=== PATIENT | female | born 1975 | race Caucasian/White ===

== ENCOUNTER 2018-06-15 01:46 | Outpatient (CLI) | payer BC, SELFPAY ==
[2018-06-15 08:45] LABS: Cholesterol 136 mg/dL (50-200); Glucose 85 mg/dL (70-100); HDL Cholesterol 58 mg/dL (40-60); LDL CHOLESTEROL 68 mg/dL (<100); Triglyceride 42 mg/dL (30-150)
== END 2018-06-15 02:06 ==
PROVIDERS: PCP General Practice; Visit Provider General Practice
DX: Z00.00 Encounter for general adult medical examination without abnormal findings (principal); Z13.220 Encounter for screening for lipoid disorders; Z13.1 Encounter for screening for diabetes mellitus
CPT/HCPCS: 36415; 80061; 82947; 83721

== ENCOUNTER 2018-11-14 01:39 | Outpatient (CLI) | payer BC, SELFPAY ==
--- NOTE | 2018-11-14 08:25 | DI.RAD_ITS ---
SYMPTOM/DIAGNOSIS: PAIN RIGHT RIBS AND PA AND LATERAL CHEST: A pectus excavatum deformity is noted. The heart size is normal. The lungs are clear. No spine or rib abnormalities are identified. IMPRESSION: Negative chest and right ribs.
== END 2018-11-14 01:59 ==
PROVIDERS: PCP General Practice; Visit Provider General Practice
DX: R07.9 Chest pain, unspecified (principal); R07.81 Pleurodynia
CPT/HCPCS: 71046; 71100

== ENCOUNTER 2019-01-24 10:14 | Outpatient (CLI) | payer BC, SELFPAY ==
[2019-01-24 10:37] LABS: HCT 38.9 % (36.0-46.0); HGB 13.5 g/dL (12.0-15.5); Mean Corp. HGB Concentration 34.7 g/dL (32.0-36.0); Mean Corpuscular Hemoglobin 32.1 pg (27.0-33.0); Mean Corpuscular Volume 92.6 fL (80-95); Mean Platelet Volume 9.9 fL (8.0-11.0); Platelet Count 249 x1000/uL (130-400); RBC Distribution Width 12.2 % (11.7-14.6)
[2019-01-24 12:15] LABS: TSH (W/Ref FT4) 2.37 uIU/mL (0.36-3.74)
== END 2019-01-24 10:34 ==
PROVIDERS: PCP General Practice; Visit Provider Obstetrics & Gynecology Gynecology
DX: Z00.00 Encounter for general adult medical examination without abnormal findings (principal); Z13.0 Encounter for screening for diseases of the blood and blood-forming organs and certain disorders involving the immune mechanism; Z13.29 Encounter for screening for other suspected endocrine disorder
CPT/HCPCS: 36415; 85027; 84443

== ENCOUNTER 2019-02-07 15:12 | Outpatient (REF) | payer BC, SELFPAY | END 2019-02-07 15:32 | LOC: LBN 15:12 | PROVIDERS: PCP General Practice; Visit Provider Nurse Practitioner Family | DX: R10.2 Pelvic and perineal pain (principal) | CPT/HCPCS: 87086 ==

== ENCOUNTER 2019-05-08 11:13 | Outpatient (REF) | payer BC, SELFPAY ==
[2019-05-08 19:11] LABS: HCT 40.4 % (36.0-46.0); Mean Corp. HGB Concentration 34.7 g/dL (32.0-36.0); Mean Corpuscular Hemoglobin 31.7 pg (27.0-33.0); Mean Corpuscular Volume 91.6 fL (80-95); Mean Platelet Volume 11.4 fL (8.0-11.0); Platelet Count 293 x1000/uL (130-400); RBC 4.41 m/cumm (4.00-5.20); RBC Distribution Width 12.1 % (11.7-14.6); White Blood Cell Count 6.51 k/cumm (4.4-10.8)
[2019-05-08 19:27] LABS: ALT 21 U/L (14-59); AST 15 U/L (15-37); Albumin 4.4 g/dL (3.4-5.0); Alkaline Phosphatase 44 U/L (46-116); Anion Gap 11.5 mmol/L (3-11); BUN 10 mg/dL (7-18); Bilirubin, Total 0.2 mg/dL (0.2-1.0); CO2 25.5 mmol/L (21.0-32.0); CREATININE 0.73 mg/dL (0.55-1.02); Calcium 9.2 mg/dL (8.5-10.1); Chloride 105 mmol/L (98-107); Glucose 82 mg/dL (74-106); Potassium 4.2 mmol/L (3.5-5.1); Sodium 142 mmol/L (136-145); Total Protein 7.4 g/dL (6.4-8.2)
== END 2019-05-08 11:33 ==
LOC: NCHCN 11:13
PROVIDERS: PCP General Practice; Visit Provider Nurse Practitioner Family
DX: K90.0 Celiac disease (principal); F32.9 Major depressive disorder, single episode, unspecified; F41.9 Anxiety disorder, unspecified; G47.00 Insomnia, unspecified
CPT/HCPCS: 80053; 85027

== ENCOUNTER 2020-02-01 01:20 | Outpatient (CLI) | payer BC, SELFPAY ==
--- NOTE | 2020-02-01 | DI.MAMMO_ITS ---
EXAM: MG MAMMO SCREENING CLINICAL HISTORY: SCREENING, Z12.39 TECHNIQUE: Bilateral full field digital CC and MLO mammographic images were obtained with 3D tomosyn thesis and utilizing computer aided detection (CAD). COMPARISON: Available for comparison. FINDINGS: Masses/Architectural Distortion: None seen. Microcalcifications: No suspicious pleomorphic-type are seen. Skin Thickening/Nipple Retraction: None. IMPRESSION: 1. No significant interval change with no specific features of malignancy noted. 2. Unless there is more urgent need, screening mammography is recommended, as per [employer] guidelines. BI-RADS Category 1 - Negative Breast Density - Category D - Extremely dense The mammogram demonstrates the patient's breast tissue is dense. Dense breast tissue is very common a nd is not abnormal but dense breast tissue can make it harder to find cancer on a mammogram. Also, de nse breast tissue may increase their breast cancer risk. This information about the result of the [facility] mogram report was provided to the patient to raise their awareness. Use this report when you speak wi th the patient about their risks for breast cancer, which includes their family history. At that time , you may recommend for more screening tests (Ultrasound or MRI) as they might be useful based on the ir risk. A negative radiographic report should not delay biopsy if a dominant or clinically suspicious mass is present. Up to ten percent of cancers are not identified on mammography. A negative report may reinforce clinical impression. Adenosis and dense breasts may obscure an underlying neoplasm. False positive reports average 6 to 10%. Patient will receive a letter notifying them of these results.
== END 2020-02-01 01:40 ==
PROVIDERS: PCP Nurse Practitioner Family; Visit Provider Nurse Practitioner Family
DX: Z12.31 Encounter for screening mammogram for malignant neoplasm of breast (principal); R92.2 Inconclusive mammogram
CPT/HCPCS: 77063; 77067

== ENCOUNTER 2020-03-22 11:23 | Outpatient (CLI) | payer BC, SELFPAY ==
[2020-03-22 12:09] LABS: Abs Immature Grans 0.01 10^3/uL (0.0-0.06); Absolute Basophil Count 0.08 10^3/uL (0.0-0.2); Absolute Eosinophil Count 0.15 10^3/uL (0.0-0.7); Absolute Lymphocyte Count 0.97 10^3/uL (1.2-3.4); Absolute Neutrophil Count 4.79 10^3/uL (1.2-6.7); Basophils % 1.3; Eosinophils % 2.3; HCT 38.5 % (36.0-46.0); HGB 12.9 g/dL (11.2-15.7); Immature Grans % 0.2; Lymphocytes % 15.2; MCH 31.5 pg (27.0-33.0); MCHC 33.5 % (32.0-36.0); MCV 94.1 fL (80-95); MPV 10.7 fL (8.0-11.0); Monocytes % 6.3; Neutrophils % 74.7; Nucleated RBC 0 %; Platelet Count 196 10^3/uL (130-400); RBC 4.09 10^6/uL (3.93-5.22); RDW 11.6 % (11.7-14.6); RDW-SD 39.7 fL
[2020-03-22 12:11] LABS: Bilirubin Negative (Negative); Blood Trace-intact (Negative); Clarity Clear (Clear); Glucose Negative (Negative); Ketones Negative (Negative); Leukocyte Esterase Negative (Negative); Nitrite Negative (Negative); Urobilinogen 0.2 EU/dL (Up TO 0.2)
[2020-03-22 12:23] LABS: Bacteria Few HPF (Negative); C & S Indicated? No/Sq. Contamination; Casts Negative LPF (Negative); Crystals Negative HPF (Negative); Epithelial Cells Moderate HPF (Negative); Mucus Negative (Negative); RBC 0-2 HPF (0-2); WBC 0-2 HPF (0-5)
[2020-03-22 12:30] LABS: Anion Gap 5.4 mmol/L (3-11); BUN 9 mg/dL (7-18); CO2 28.6 mmol/L (21.0-32.0); Chloride 104 mmol/L (98-107); Glucose 100 mg/dL (74-106); Potassium 3.7 mmol/L (3.5-5.1); Sodium 138 mmol/L (136-145)
[2020-03-22 12:39] LABS: C-Reactive Protein < 0.05 mg/dL (0.0-0.3)
[2020-03-22 12:51] LABS: ESR 8 mm/hr (0-20)
[2020-03-25 12:48] LABS: Albumin 63.8 % (55.8-66.1); Total Protein 7.5 g/dL (6.3-8.2)
[2020-03-26 14:41] LABS: Dilute Russell Viper Venom 27.5 secs (27.2-36.9); LA Cascade Summary (See Note); Silica Clotting Time 40.7 secs (30.2-48.4)
[2020-03-26 17:04] LABS: ANA Interpretation Positive (Negative)
== END 2020-03-22 11:43 ==
PROVIDERS: PCP Nurse Practitioner Family; Visit Provider Nurse Practitioner Family
DX: R21 Rash and other nonspecific skin eruption (principal); M25.59 Pain in other specified joint
CPT/HCPCS: 36415; 80048; 85652; 87116; 81003; 81015; 84165; 85025; 86038; 86140

== ENCOUNTER 2020-03-25 02:06 | Outpatient (CLI) | payer BC, SELFPAY | END 2020-03-25 02:26 | PROVIDERS: PCP Nurse Practitioner Family; Visit Provider Nurse Practitioner Family | DX: R69 Illness, unspecified (principal) ==

== ENCOUNTER 2020-07-05 21:41 | Outpatient (CLI) | payer BC, SELFPAY ==
--- NOTE | 2020-07-05 16:12 | DI.RAD_ITS ---
EXAM: XR KNEE LT 2V AP,LAT CLINICAL HISTORY: KNEE PAIN WITH INTERMITTENT SWELLING,EVALUATE FOR OA VS CHONDROALCINOSIS. TECHNIQUE: 2D digital imaging was performed. COMPARISON: No previous for comparison. FINDINGS: BONES: No acute fracture is present. No bony destructive lesion is seen. JOINTS: The knee is normally aligned. Small joint effusion. No evidence of chondrocalcinosis. SOFT TISSUE: Normal. IMPRESSION: Small joint effusion. Otherwise unremarkable examination of the left knee. DATA REPOSITORY: RADIATION DOSE DELIVERED:
--- NOTE | 2020-07-05 16:13 | DI.RAD_ITS ---
EXAM: XR KNEE RT 2V AP,LAT CLINICAL HISTORY: KNEE PAIN,INTERMITTENT SWELLING,EVALUATE FOR OA VS CHONDROCALCINOSIS. TECHNIQUE: 2D digital imaging was performed. COMPARISON: CR XR KNEE LT 2V AP,LAT from 07/05/2020 FINDINGS: BONES: No acute fracture is present. No bony destructive lesion is seen. JOINTS: The knee is normally aligned. Small joint effusion. No evidence of chondrocalcinosis. SOFT TISSUE: Normal. IMPRESSION: Small joint effusion. Otherwise unremarkable examination. DATA REPOSITORY: RADIATION DOSE DELIVERED:
== END 2020-07-05 21:42 ==
LOC: DI 07-08 21:44
PROVIDERS: PCP Nurse Practitioner Family; Visit Provider Internal Medicine
DX: M25.461 Effusion, right knee (principal); M25.462 Effusion, left knee
CPT/HCPCS: 73560

== ENCOUNTER 2020-11-14 02:56 | Outpatient (CLI) | payer BC, SELFPAY ==
[2020-11-14 17:54] LABS: ALT 25 U/L (14-59); AST 19 U/L (15-37); Albumin 4.2 g/dL (3.4-5.0); Alkaline Phosphatase 37 U/L (46-116); Bilirubin, Direct 0.1 mg/dL (0.0-0.2); Bilirubin, Total 0.2 mg/dL (0.2-1.0); Total Protein 7.2 g/dL (6.4-8.2)
== END 2020-11-14 02:57 | disposition home or self-care (01) ==
PROVIDERS: PCP Nurse Practitioner Family; Visit Provider Internal Medicine Gastroenterology
DX: R74.8 Abnormal levels of other serum enzymes (principal)
CPT/HCPCS: 36415; 80076

== ENCOUNTER 2020-12-05 02:49 | Outpatient (CLI) | payer BC, SELFPAY ==
[2020-12-05 17:39] LABS: TSH 1.44 uIU/mL (0.36-3.74)
== END 2020-12-05 02:50 | disposition home or self-care (01) ==
PROVIDERS: PCP Nurse Practitioner Family; Visit Provider Internal Medicine
DX: E03.9 Hypothyroidism, unspecified (principal)
CPT/HCPCS: 36415; 84443

== ENCOUNTER 2021-10-01 01:40 | Outpatient (CLI) | payer BC, SELFPAY ==
[2021-10-03 11:39] LABS: Centromere Ab, IgG 2.5 U (<1.0 (Neg))
== END 2021-10-01 01:41 | disposition home or self-care (01) ==
LOC: LBO 01:40
PROVIDERS: PCP Nurse Practitioner Family; Visit Provider Internal Medicine
DX: I73.00 Raynaud's syndrome without gangrene (principal); R76.8 Other specified abnormal immunological findings in serum
CPT/HCPCS: 36415; 83520

== ENCOUNTER 2021-11-03 02:40 | Outpatient (CLI) | payer BC, SELFPAY ==
--- NOTE | 2021-11-03 11:15 | DI.CT_ITS ---
Exam(s) CT CHEST WO EXAM: CT CHEST WO CLINICAL HISTORY: STACIA, M34.1 TECHNIQUE: Imaging Protocol: Axial computed tomography images with coronal and sagittal reformatted images were created and reviewed CONTRAST MATERIAL: Intravenous: Omnipaque 350 Contrast volume:structured data in ml. COMPARISON: CR XR ribs RT w PA lat chest from 11/14/2018 FINDINGS: Tracheobronchial tree: No bronchiectasis or mucous plugging. Mediastinum and [place]: No dominant adenopathy or fluid collection. Pulmonary parenchyma: Minimal apical scarring. No consolidation or dominant measurable mass. No sig nificant emphysematous changes or abnormal interstitial changes. No pulmonary nodules. Pleura: No effusion or pneumothorax. Heart: The heart is not dilated. No coronary artery calcifications are seen. Aorta: Thoracic aorta non-dilated. Upper abdomen: Unremarkable. Lymph nodes: Within normal limits. Bones: Pectus excavatum. Otherwise normal. Soft tissues: Unremarkable. IMPRESSION: Mild apical scarring. RADIATION DOSE DELIVERED: 343.42mGy.cm Total DLP DATA REPOSITORY: All CT scans at this facility are submitted to the National Radiology Data Registry (NRDR) Dose Index Registry (DIR) with the [employer] (A[employer]). RADIATION OPTIMIZATION: All CT scans at this facility use at least one of these dose optimization te chniques: automated exposure control; mA and/or kV adjustment per patient size (includes targeted exa ms where dose is matched to clinical indication); or iterative reconstruction.
--- NOTE | 2021-11-03 11:34 | DI.RAD_ITS ---
Exam(s) XR SHOULDER RT COMPLETE 2+V EXAM: XR SHOULDER RT COMPLETE 2+V CLINICAL HISTORY: SHOULDER PAIN, RT ROTATOR CUFF INJURY, S46.001D. TECHNIQUE: 2D digital imaging was performed. Five views. COMPARISON: No exams were available for comparison FINDINGS: BONES: No acute fracture is present. No bony destructive lesion is seen. JOINTS: No dislocation present. No significant degenerative changes. SOFT TISSUE: Normal. IMPRESSION: Unremarkable radiographs of the right shoulder. DATA REPOSITORY: RADIATION DOSE DELIVERED:
== END 2021-11-03 03:00 ==
LOC: DI 02:41
PROVIDERS: PCP Nurse Practitioner Family; Visit Provider Internal Medicine
DX: S46.001D Unspecified injury of muscle(s) and tendon(s) of the rotator cuff of right shoulder, subsequent encounter (principal); X58.XXXD Exposure to other specified factors, subsequent encounter; M34.1 CR(E)ST syndrome; J98.4 Other disorders of lung
CPT/HCPCS: 71250; 73030

== ENCOUNTER 2021-11-03 04:14 | Outpatient (CLI) | payer BC, SELFPAY ==
[2021-11-03] MEDS: Inhaler, Assist Device 1 EACH MC (11:07)
[2021-11-03] MEDS: Albuterol HFA 18 GM 200 PUFF INH IH (11:07)
--- NOTE | 2021-11-04 09:25 | W.PFT ---
Date of service: 11/03/21 Time of Service: 10:03 Pulmonary Function Test Result Requesting Provider Geraldo Gracia Indications: Crest syndrome Interpretation Spirometry: There is no airflow limitation. There is no significant bronchodilator response. Lung Volumes: Normal lung volumes Diffusion Capacity: Normal diffusion Airway Pressure: Normal airways resistance. Impression Normal pulmonary function testing Clinical Correlation therefore is recommended.
== END 2021-11-03 04:15 | disposition home or self-care (01) ==
LOC: RT 04:14
PROVIDERS: PCP Nurse Practitioner Family; Visit Provider Nurse Practitioner Family
DX: M34.1 CR(E)ST syndrome (principal); R05.8 Other specified cough
CPT/HCPCS: 94060; 94726; 94729

== ENCOUNTER → 2021-11-05 02:18 | Outpatient (CLI) | payer BC, SELFPAY ==
--- NOTE | 2021-11-05 | DI.US_ITS ---
APPROVED REPORT EXAM: Comprehensive 2D, Doppler, and color-flow Echocardiogram Patient Location: Out-Patient Intervention Manager: Diana Doyle RDCS (AE) Indications: Crest, Calcinosis, Raynaud phenomenon, Telangiectasis Other Information Study Quality: Fair. Technically limited study due to body habitus. Conclusion Technically difficult and suboptimal study The left ventricle appears normal in size and wall thickness. Ejection fraction appears normal. The re are no wall motion abnormalities appreciated The right ventricle appears normal in size and systolic function The atria were not well visualized Aortic valve was not well visualized Normal mitral valve with trace regurgitation Normal tricuspid valve with trace regurgitation Normal estimated right ventricular systolic pressure 26 mmHg Wall motion Left Ventricle The left ventricle is normal size. The left ventricular systolic function is normal. The left ventric ular ejection fraction is within the normal range. There is normal left ventricular wall thickness. T here is normal LV segmental wall motion. There is no ventricular septal defect visualized. LVEF is 57 %. Right Ventricle The right ventricle is normal size.. The right ventricular systolic function is normal. The RVSP is 2 6.2mmHg. Atria Left atrium is not well visualized. Right atrium is not well visualized. The interatrial septum is in tact with no evidence for an atrial septal defect. Aortic Valve The aortic valve is normal in structure. Number of aortic valve leaflets could not be assessed. There is no aortic valvular stenosis. Mitral Valve The mitral valve is normal in structure. No evidence of mitral valve stenosis. Trace mitral regurgita tion. Tricuspid Valve The tricuspid valve is normal in structure. There is no tricuspid valve stenosis. Trace tricuspid reg urgitation. Pulmonic Valve Pulmonic valve is not well visualized. Great Vessels The aortic root is normal in size. Ascending aorta is not well visualized. Aortic arch is not well vi sualized. The IVC collapses <50% with inspiration. Pericardium There is no pericardial effusion. 2D Dimensions IVSD d PLAX 0.64 cm F: 0.6-1.0 LV Vol A2C d MOD 48.1 mL LVPW d PLAX 0.68 cm F: 0.6 - 1.0 LV Vol A4C d MOD 55.6 mL LVID d PLAX 3.39 cm F: 3.8 - 5.2 LV EF A4C MOD 58.8 % LVDs 2.40 cm F: 2.2 - 3.5 LV EF A2C MOD 59.0 % Ao Root d 2.13 cm F: 2.7 - 3.3 LV EF Biplane MOD 58.5 % LV EF Teichholz 55.2 % SV 30.56 mL LVEF (Olivas's) 58.53 % F: 54 - 74 SV Index 21.11 mL/m2 LV Volume 44.13 mL F: 46 - 106 LV Volume Index 30.64 mL/m2 F: 29 - 61 LV Vol Biplane MOD 52.2 mL FS 27.85 % LV Diastology E/A Ratio 1.0 MV E Vmax 1.04 (0.4-1.3 m/s) MV A Vmax 1.00 (0.4-1.3 m/s) MV E/A Ratio 1.01 Aortic Valve LVOT Area 2.64 cm2 AoV Area Vmax 1.94 cm2 LVOT Vmax 0.98 m/s AoV Area/ BSA (Vmax) 1.34 cm2/m2 LVOT Mean Marvel. 0.78 m/s ROBERT Mean Marvel. 1.91 cm2 LVOT Peak Grad 3.9 mmHg ROBERT Mean Marvel. Index 1.32 cm2/m2 LVOT Mean Grad 2.5 mmHg LVOT VTI 0.196 m LVOT Diam s 1.80 cm AoV Vmax 1.34 m/s Velocity Ratio 0.73 AoV Mean Marvel. 1.07 m/s AoV Peak Grad 7.2 mmHg LVOT SV 51.81 mL AoV Mean Grad 4.8 mmHg AoV VTI 0.298 m AoV Area VTI 1.74 cm2 AoV Area/ BSA (VTI) 1.20 cm/m2 Mitral Valve MV DT 158 (160-240 msec) MV PHT 46 msec MV Area PHT 4.79 cm2 MV VTI 0.252 m MV Area VTI 2.06 (4.0-6.0 cm2) Pulmonary Valve PV Vmax 1.14 (0.5-1.5 m/s) RVOT Peak Gr. 1.22 mmHg PV Peak Grad 5.2 mmHg RVOT Mean Gr. 0.70 mmHg PV Mean Grad 3.4 mmHg RVOT VTI 0.087 m PV VTI 0.264 m RVOT Vmax 0.55 m/s Tricuspid Valve TR Peak Grad 18.2 mmHg TR Vmax 2.14 m/s RA Pressure 8.00 mmHg RVSP (TR) 26.2 mmHg
== END ==
PROVIDERS: PCP Nurse Practitioner Family; Visit Provider Nurse Practitioner Family
DX: M34.1 CR(E)ST syndrome (principal); I73.00 Raynaud's syndrome without gangrene; I78.0 Hereditary hemorrhagic telangiectasia
CPT/HCPCS: 93306

== ENCOUNTER 2022-07-14 19:18 | Outpatient (REF) | payer BC, SELFPAY ==
[2022-07-14 16:55] LABS: Abs Immature Grans 0.02 10^3/uL (0.0-0.06); Absolute Basophil Count 0.06 10^3/uL (0.0-0.2); Absolute Lymphocyte Count 0.73 10^3/uL (1.2-3.4); Absolute Monocyte Count 0.37 10^3/uL (0.1-0.8); Absolute Neutrophil Count 3.17 10^3/uL (1.2-6.7); Basophils % 1.3; Eosinophils % 2.2; HCT 39.6 % (36.0-46.0); HGB 13.2 g/dL (11.2-15.7); Immature Grans % 0.4; Lymphocytes % 16.4; MCH 31.7 pg (27.0-33.0); MCHC 33.3 % (32.0-36.0); MCV 95 fL (80-95); MPV 11.6 fL (8.0-11.0); Monocytes % 8.3; Neutrophils % 71.4; Platelet Count 221 10^3/uL (130-400); RBC 4.17 10^6/uL (3.93-5.22); RDW 12.5 % (11.7-14.6); RDW-SD 42.9 fL; WBC 4.45 10^3/uL (4.4-10.8)
[2022-07-14 17:10] LABS: ALT 20 U/L (14-59); AST 28 U/L (15-37); Albumin 4.5 g/dL (3.4-5.0); Alkaline Phosphatase 48 U/L (46-116); Anion Gap 7.3 mmol/L (3-11); BUN 6 mg/dL (7-18); Bilirubin, Total 0.2 mg/dL (0.2-1.0); CO2 29.7 mmol/L (21.0-32.0); CREATININE 0.7 mg/dL (0.55-1.02); Calcium 9.2 mg/dL (8.5-10.1); Calculated LDL 97 mg/dL (<100); Chloride 101 mmol/L (98-107); Cholesterol 184 mg/dL (<200); Estimated GFR 106.62 (mL/min/1.73m2); Glucose 109 mg/dL (74-106); HDL Cholesterol 71 mg/dL (40-60); Potassium 3.7 mmol/L (3.5-5.1); Sodium 138 mmol/L (136-145); Total Protein 7.8 g/dL (6.4-8.2); Triglyceride 81 mg/dL (<150)
--- OUTSIDE RECORDS SUMMARY | 2022-07-14 19:30 | XMS_ITS ---
Author Name Paulina Porter Address [address], [place] [id number] Organization [facility] Address [address], [place] [id number] Care Team Providers Care Nursing Unit Clerk Name Role Phone Paulina Porter Unavailable [phone] PROBLEMS Type Condition ICD9-CM Code XIV04-ZY Code Onset Dates Condition Status SNOMED Code Problem Sensorineural hearing loss (SNHL), bilateral H90.3 Active 192120168 Problem Chronic rhinitis J31.0 Active [id number] ALLERGIES Substance Reaction Event Type Date Status codeine vomiting Drug Allergy Dec, Active Doxycycline rash, numbness on hands Drug Allergy Dec, 020 Active gluten Unknown Non Drug Allergy Dec, Active corn Unknown Non Drug Allergy Dec, Active ENCOUNTERS Encounter Location Date Diagnosis [facility] [address] [place], [place] [id number] Dec, Encounter for other administrative examinations Z02.89 [facility] [address] [place], [place] [id number] Dec, Sensorineural hearing loss (SNHL) of both ears H90.3 [facility] [address] [place], [place] [id number] Dec, Sensorineural hearing loss (SNHL), bilateral H90.3 N [facility] [address] [place], [place] [id number] May, Sensorineural hearing loss (SNHL), bilateral H90.3 N [facility] [address] [place], [place] [id number] May, Chronic rhinitis J31.0 and Sensorineural hearing loss (SNHL), bilateral H90.3 N E [facility] [address] [place], [place] [id number] May, Sensorineural hearing loss, bilateral H90.3 N E [facility] [address] [place], [place] [id number] May, Sensorineural hearing loss (SNHL), bilateral H90.3 N E [facility] [address] [place], [place] [id number] Apr, Sensorineural hearing loss, bilateral H90.3 N [facility] [address] [place], [place] [id number] Mar, Sensorineural hearing loss (SNHL), bilateral H90.3 N E [facility] [address] [place], [place] [id number] Feb, Sensorineural hearing loss, bilateral H90.3 N [facility] [address] [place], [place] [id number] Feb, Sensorineural hearing loss (SNHL), bilateral H90.3 N [facility] [address] [place], [place] [phone] Feb, IMMUNIZATIONS No Known Immunizations SOCIAL HISTORY Never Assessed REASON FOR REFERRAL FUNCTIONAL STATUS PLAN OF CARE VITAL SIGNS Height 62 in 2020-01-25 Height 62 in 2018-06-16 Height 62 in 2017-06-03 Height 5 ft 2 in in 2016-03-19 Weight 94 lbs 2020-01-25 Weight declined lbs 2018-06-16 Weight 95 lbs 2017-06-03 Weight 107 lbs 2016-03-19 Temperature 97.9 degrees Fahrenheit Heart Rate 88 /min 2020-01-25 Heart Rate 90 /min 2018-06-16 Heart Rate 88 /min 2017-06-03 Heart Rate 96 /min 2016-03-19 Respiratory Rate 14 /min 2018-06-16 BMI 17.19 kg/m2 2020-01-25 BMI 17.37 kg/m2 2017-06-03 BMI 19.57 kg/m2 2016-03-19 Blood pressure systolic 98 mm Hg Blood pressure diastolic 60 mm Hg 2019-12 MEDICATIONS Medication Instructions Dosage Frequency Start Date End Date Duration Status Zolpidem Tartrate 5 MG Orally Once a day 0.5 tablet at bedtime 24h Active Sertraline HCl 25 MG take 1 tablet by mouth once daily 90 Active Amitriptyline HCl 50 MG Orally Once a day 1 tablet 24h Active Ibuprofen 200 MG Orally every 6 hrs 1 tablet as needed 6h Active Fluticasone Propionate 50 MCG/ACT Nasally Once a day 2 spray in each nostril 24h May, 30 day(s) Active PROCEDURES Procedure Date Ordered Result Body Site OCD Urine Drug Screen (collection only) Jan 05, 2022 COMPREHENSIVE AUDIOMET THRESH AND SPEECH Jan 25, 2020 RESULTS Name Result Date Reference Range OCD URINE COLLECTION 2022-01-05 REASON FOR VISIT OCC udc, OCC udc , ENT 1 year check and Audio , AUD audio, Hearing loss, ENT 1 year hearing , ENT 1year hearing , postnasal drip, hearing loss, AUD audio, hearing loss, ENT 1 year hearing , ENT 1 year hearing , AUD 6 month check, HAF f/u, HAF f/u, AUD donohue fitting, AUDIO, increasing difficulty hearing, preload chart Insurance Providers Health Insurance Type Health Plan Insurance Address Health Plan Insurance Phone Health Plan Insurance Name Health Plan Coverage Dates Member ID Patient Relationship to Subscriber Patient Address Patient Phone Patient Name Patient Date of Subscriber ID Subscriber Name Subscriber Date of Group No [employer] [address] [address] [facility] [address] [employer] self Karolina Liao reena [id number] [facility] - DO NOT BILL (Write Off) [address] [facility] [address] [facility] - DO NOT BILL (Write Off) self Karolina valles 1975 [employer] [place] [address] [facility] [address] [employer] self Karolina valles 1975 [id number]
== END 2022-07-14 19:19 | disposition home or self-care (01) ==
LOC: NCHCN 19:18
PROVIDERS: Visit Provider Nurse Practitioner Family
DX: L93.0 Discoid lupus erythematosus (principal); Z13.220 Encounter for screening for lipoid disorders
CPT/HCPCS: 80053; 80061; 85025

== ENCOUNTER 2022-08-18 01:39 | Outpatient (CLI) | payer BC, SELFPAY ==
--- NOTE | 2022-08-18 | DI.MAMMO_ITS ---
Exam(s) MAMMO SCREENING EXAM: MAMMO SCREENING CLINICAL HISTORY: SCREENING, Z12.39 TECHNIQUE: Bilateral full field digital CC and MLO mammographic images were obtained with 3D tomosyn thesis and utilizing computer aided detection (CAD). COMPARISON: Available for comparison. FINDINGS: Masses/Architectural Distortion: None seen. Microcalcifications: No suspicious pleomorphic-type are seen. Skin Thickening/Nipple Retraction: None. IMPRESSION: 1. No significant interval change with no specific features of malignancy noted. 2. Unless there is more urgent need, screening mammography is recommended, as per [employer] guidelines. BI-RADS Category 1 - Negative Breast Density - Category D - Extremely dense Breast density category C or D implies that the patient has dense breast tissue. Dense breast tissue is very common and is not abnormal but dense breast tissue can make it harder to find cancer on a ma mmogram. Also, dense breast tissue may increase their breast cancer risk. This information about the result of the mammogram report was provided to the patient to raise their awareness. Use this report when you speak with the patient about their risks for breast cancer, which includes their family hist ory. At that time, you may recommend for more screening tests (Ultrasound or MRI) as they might be us eful based on their risk. A negative radiographic report should not delay biopsy if a dominant or clinically suspicious mass is present. Up to ten percent of cancers are not identified on mammography. A negative report may reinforce clinical impression. Adenosis and dense breasts may obscure an underlying neoplasm. False positive reports average 6 to 10%. Patient will receive a letter notifying them of these results.
== END 2022-08-18 01:59 ==
PROVIDERS: Visit Provider Nurse Practitioner Family
DX: Z12.31 Encounter for screening mammogram for malignant neoplasm of breast (principal)
CPT/HCPCS: 77063; 77067

== ENCOUNTER 2022-11-09 05:06 | Outpatient (CLI) | payer BC, SELFPAY ==
[2022-11-09] MEDS: Inhaler, Assist Device 1 EACH MC (16:14)
[2022-11-09] MEDS: Albuterol HFA 18 GM 200 PUFF INH IH (16:14)
--- NOTE | 2022-11-19 16:09 | W.PFT ---
Date of service: 11/09/22 Time of Service: 15:05 Pulmonary Function Test Result Indications: CREST syndrome Interpretation Spirometry: No airflow limitation. No bronchodilator response. Lung Volumes: There is hyperinflation and air trapping. Diffusion Capacity: Normal diffusion. Airway Pressure: Normal airways resistance Impression There is air trapping which could be consistent with asthma. Note: When compared to 11/03/21, there was a decrease in diffusion of 8% and there is now air trapping present. Lung function is otherwise stable. Clinical Correlation therefore is recommended.
== END 2022-11-09 05:07 | disposition home or self-care (01) ==
LOC: RT 05:07
PROVIDERS: Visit Provider Internal Medicine
DX: M34.1 CR(E)ST syndrome (principal); Z51.81 Encounter for therapeutic drug level monitoring
CPT/HCPCS: 94060; 94726; 94729

== ENCOUNTER → 2023-10-11 03:52 | Outpatient (CLI) | payer BC, SELFPAY ==
--- NOTE | 2023-10-11 12:34 | DI.US_ITS ---
APPROVED REPORT EXAM: Comprehensive 2D, Doppler, and color-flow Echocardiogram Patient Location: Out-Patient Crosscutter Rolled Glass: Diana Doyle RDCS (AE) Indications: HX of CREST, evaluate for pulmonary HTN, Undifferentiated connective tissue disease Other Information Study Quality: Fair. Technically limited study due to body habitus. Conclusion Technically difficult and suboptimal study Normal left ventricular wall thickness chamber size and systolic function. Ejection fraction is 60% Right ventricle is not well-visualized but does not appear enlarged Both atria are grossly normal in size Within the limits of the study there is no structural or hemodynamically significant valvular disease identified Estimated right ventricular systolic pressure is 19 mmHg Wall motion Left Ventricle The left ventricle is normal size. The overall left ventricular systolic function appears normal. Juan Antonio hnically limited images due to body habitus. There is normal left ventricular wall thickness. Regiona l wall motion is not well visualized but grossly normal. There is no ventricular septal defect visual ized. LVEF is 60%. Right Ventricle Right ventricle is not well visualized. Right ventricular systolic function could not be assessed. Atria Left atrium is not well visualized. Right atrium is not well visualized. The interatrial septum is in tact with no evidence for an atrial septal defect. Aortic Valve The aortic valve is normal in structure. There is no aortic valvular stenosis. No aortic regurgitatio n is present. Mitral Valve The mitral valve is normal in structure. No evidence of mitral valve stenosis. Trace mitral regurgita tion. Tricuspid Valve The tricuspid valve is normal in structure. There is no tricuspid valve stenosis. Trace tricuspid reg urgitation. The RVSP is 18.9 mmHg. Pulmonic Valve Pulmonic valve is not well visualized. There is no pulmonic valvular stenosis. There is no pulmonic v alvular regurgitation. Great Vessels The aortic root is normal in size. Ascending aorta is not well visualized. Aortic arch is not well vi sualized. IVC is normal in size and collapses >50% with inspiration. Pericardium Mild anterior pericardial effusion. 2D Dimensions IVSD d PLAX 0.59 cm F: 0.6-1.0 Ao Root d 1.98 cm F: 2.7 - 3.3 LVPW d PLAX 0.62 cm F: 0.6 - 1.0 LVID d PLAX 3.56 cm F: 3.8 - 5.2 LVDs 2.44 cm F: 2.2 - 3.5 LV EF Teichholz 60.4 % FS 31.51 % LV EDV (Teich) 53.0 mL LV ESV (Teich) 21.0 mL Auto EF LV EDV A4C 59.9 mL LV EDV A2C 86.2 mL LV EDV BP 74.5 mL LV ESV A4C 24.2 mL LV ESV A2C 36.1 mL LV ESV BP 29.2 mL LVEF(%) A4C 59.6 % LVEF(%) A2C 58.2 % LVEF(%) BP 60.8 % LV SV A4C 35.7 ml LV SV A2C 50.2 ml LV SV BP 45.3 ml LV CO A4C 3.4 L/min LV CO A2C 4.8 L/min LV CO BP 4.1 L/min HR A4C 95.25 BPM HR A2C 95.68 BPM LV EDV Index (BP) LV Diastology MV E Vmax 1.08 (0.4-1.3 m/s) MV A Vmax 0.90 (0.4-1.3 m/s) E/A Ratio 1.2 Aortic Valve AoV Vmax 1.45 m/s LVOT Vmax 1.11 m/s AoV Peak Grad 8.4 mmHg LVOT Peak Grad 4.9 mmHg AoV Area (Vmax) 2.08 cm2 LVOT VTI 0.201 m AoV VTI 0.290 m LVOT Mean Grad 2.2 mmHg AoV Mean Marvel. 1.12 m/s LVOT SV 54.59 mL AoV Mean Grad 5.5 mmHg LVOT Diam s 1.85 cm AoV Area (VTI) 1.88 cm2 Velocity Ratio 0.77 Mitral Valve MV DT 166 (160-240 msec) MV Vmax TIPS 1.05 m/s MV Mean Grad 2.7 (<2mmHg) MV VTI 0.289 m Pulmonary Valve PV Vmax 0.93 (0.5-1.5 m/s) RVOT Vmax 0.73 m/s PV Peak Grad 3.5 mmHg RVOT Peak Gr. 2.1 mmHg PV Mean Marvel 0.59 m/s RVOT VTI 0.146 m PV Mean Grad 1.6 mmHg RVOT Mean Gr. 1.0 mmHg Tricuspid Valve RA Pressure 3.00 mmHg TR Vmax 2.00 m/s TV S' 0.13 m/s TR Peak Grad 15.9 mmHg RVSP (TR) 18.9 mmHg
== END ==
PROVIDERS: PCP Nurse Practitioner Family; Visit Provider Internal Medicine
DX: Z87.39 Personal history of other diseases of the musculoskeletal system and connective tissue (principal); I27.20 Pulmonary hypertension, unspecified; I34.0 Nonrheumatic mitral (valve) insufficiency; I36.1 Nonrheumatic tricuspid (valve) insufficiency
CPT/HCPCS: 93306

== ENCOUNTER 2024-06-19 18:12 | Outpatient (REF) | payer BC, SELFPAY ==
[2024-06-21 22:14] LABS: Campylobacter PCR Negative (Negative); Salmonella PCR Negative (Negative); Shiga Toxin PCR Negative (Negative); Shigella/Enteroinvasive Ecoli Negative (Negative)
== END 2024-06-19 18:13 | disposition home or self-care (01) ==
LOC: LBN 18:12
PROVIDERS: Visit Provider Internal Medicine
DX: R19.7 Diarrhea, unspecified (principal)
CPT/HCPCS: 87329; 87505

== ENCOUNTER 2024-06-20 02:30 | Outpatient (CLI) | payer BC, SELFPAY ==
[2024-06-20 16:46] LABS: Abs Immature Grans 0.04 10^3/uL (0.0-0.06); Absolute Eosinophil Count 0.27 10^3/uL (0.0-0.7); Absolute Lymphocyte Count 0.98 10^3/uL (1.2-3.4); Absolute Monocyte Count 0.77 10^3/uL (0.1-0.8); Absolute Neutrophil Count 5.63 10^3/uL (1.2-6.7); Basophils % 1.3 %; Eosinophils % 3.5 %; HCT 38.7 % (36.0-46.0); HGB 12.9 g/dL (11.2-15.7); Immature Grans % 0.5 %; Lymphocytes % 12.6 %; MCH 31.9 pg (27.0-33.0); MCHC 33.3 % (32.0-36.0); MCV 96 fL (80-95); MPV 9.9 fL (8.0-11.0); Monocytes % 9.9 %; Neutrophils % 72.2 %; Platelet Count 303 10^3/uL (130-400); RBC 4.04 10^6/uL (3.93-5.22); RDW 11.6 % (11.7-14.6); RDW-SD 40.7 fL; WBC 7.79 10^3/uL (4.4-10.8)
[2024-06-20 17:13] LABS: Anion Gap 3.6 mmol/L (3-11); BUN 8 mg/dL (7-18); CO2 32.4 mmol/L (21.0-32.0); CREATININE 0.7 mg/dL (0.55-1.02); Chloride 104 mmol/L (98-107); Estimated GFR 105.95 (mL/min/1.73m2); Glucose 82 mg/dL (74-106); Potassium 4.3 mmol/L (3.5-5.1); Sodium 140 mmol/L (136-145)
[2024-06-20 17:14] LABS: C-Reactive Protein < 0.50 mg/dL (<or=0.5)
== END 2024-06-20 02:31 | disposition home or self-care (01) ==
LOC: LBO 02:30
PROVIDERS: Visit Provider Internal Medicine
DX: R19.7 Diarrhea, unspecified (principal)
CPT/HCPCS: 36415; 80048; 85025; 86140

== ENCOUNTER 2024-06-23 18:15 | Outpatient (REF) | payer BC, SELFPAY ==
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
--- OUTSIDE RECORDS SUMMARY | 2024-06-23 18:17 | XMS_ITS | Encounter Summary ---
Author Organization [facility] Address [facility] [place] [address] Care Team Providers Care Soaker Hides Name Role Phone Geraldo Gracia DNP Primary Care Provider Encounter Details Date Type Department Care Team (Late st Contact Info) Description 04/20/2024 10:30 AM EST Office [place] [address] Unruly Ramirez MD [facility] [place] [address] CREST (calcinosis, Raynaud's phenomenon, esophageal dysfunction, sclerodactyly, telangiectasia); Constipation, unspecified constipation type; Dyssynergic constipation Social History Tobacco Use Types Packs/Day Years Used Date Smoking Tobacco: Former Cigarettes Q uit: 1992 Smokeless Tobacco: Never Comments:In high school smok ed maybe a 0.5 of a cigarette daily Alcohol Use Standard Drinks/Week Comments Yes 0 (1 standard drink = 0.6 oz pur e alcohol) < once a month [facility] Inpatient Questions Answer Date Recorded Does Anyone [...] PM EDT documented as of this encounter Last Filed Vital Signs Vital Sign Reading Time Taken Comments Blood Pressure 111/65 04/20/2024 10:27 AM EST Pulse 97 04/20/2024 10:27 AM EST Temperature - - Respiratory Rate - - Oxygen Saturation - - Inhaled Oxygen Concentration - - Weight 49.7 kg (109 lb 9.6 oz) 04/20/2024 10:27 AM EST Height - - Body Mass Index 20.05 03/27/2024 10:24 AM EDT documented in this encounter Patient Instructions * Patient Instructions* Unruly Ramirez MD - 04/20/2024 10:30 AM EST - continue colace - can retry senna - daily glycerin suppositories - digital rectal stimulation daily - continue eating fruits and vegetables and hydrating well - I will discuss with rheumatology and our motility doctors - your homework is to call the pelvic floor therapist for an appointment documented in this encounter Progress Notes * Unruly Ramirez MD - 04/20/2024 10:30 AM EST [facility] Division of Gastroenterology and Hepatology Outpatient Follow-up Visit History of Present Illness: Karolina Olivas is a 48 y.o. y.o. patient with a past medical history significant for CREST syndrome, celiac disease, s/p hysterectomy for abnormal uterine bleeding, migraines, prior episode of pericarditis and costochondritis, who was referred to GI in July 2020 for a positive ARNULFO (1:320) and smooth muscle Ab (1:160). Interval History: - last seen in GI clinic 02/10/24 at which time we continued prucalopride and started miralax/senna.We also discussed starting pelvic floor therapy - stopped taking motegrity, wasn't doing anything for her - takes 2 colace tablets per day, will take a glycerin suppository if she - still eating minimally, BMs every 2-4 days Review of Systems: Otherwise negative Current Outpatient Medications Medication Sig Dispense Refill belimumab (Benlysta) 200 mg/mL Auto-Injector Inject 1 mL subcutaneously once a week. Indications: SLE M32.8 4 mL 5 UNABLE TO FIND Take 500 mg by mouth daily. Med Name: Digestiva triphala senna (Senokot) 8.6 mg tablet Take 1 tablet by mouth 2 times daily. docusate sodium (Colace) 50 mg capsule Take 1 capsule by mouth 2 times daily. Emgality Pen 120 mg/mL Pen Injector INJECT THE CONTENTS OF ONE PEN (120 MG) SUBCUTANEOUSLY ONCE EVERY 28 DAYS 1 mL 6 hydrOXYchloroQUINE (Plaquenil) 200 mg tablet Take 1 tablet by mouth daily. Indications: systemic lupus erythematosus, an autoimmune disease [address] (Cymbalta) [address] capsule Take 1 capsule by mouth daily. 90 tablet 3 levothyroxine (Synthroid) 50 mcg Tablet Take 1 tablet by mouth daily. 60 tablet 0 melatonin 3 mg Tablet Take 3 mg by mouth nightly. magnesium 250 mg Tablet Take 500 mg by mouth nightly. amitriptyline (Elavil) 25 mg Tablet Take 12.5 mg by mouth nightly. 0 plecanatide (Trulance) 3 mg tablet Take 1 tablet by mouth daily. 90 tablet 0 polyethylene glycoL (Miralax) 17 gram/dose Powder Take 17 g by mouth 2 times daily. (Patient not taking: Reported on 03/27/2024) prucalopride (Motegrity) 2 mg tablet Take 1 tablet by mouth daily. (Patient not taking: Reported on04/20/2024) 90 tablet 1 traZODone (Desyrel) 50 mg Tablet Take 25 mg by mouth nightly. No current facility-administered medications for this visit. Allergies Allergen Reactions Gluten Nausea And Vomiting, Rash and Other (See Comments) Also stomach aches very bad Codeine Phosphate CIS - Nausea/Vomiting Doxycycline Monohydrate CIS - HANDS GET NUMB Physical Examination: Patient Vitals for the past 24 hrs: Pulse BP 04/20/24 1027 97 111/65 Gen: well appearing CV: well perfused Resp: normal work of breathing Skin: no jaundice Neuro: no asterixis Labs: Reviewed in EDH/Scan Docs Lab Results Component Value Date WBC 5.81 03/27/2024 HGB 13.7 03/27/2024 HCT 40.9 03/27/2024 MCV 96.0 (H) 03/27/2024 PLATELET 270 03/27/2024 Chemistry Component Value Date/Time NA 140 03/27/2024 1201 NA 139 11/15/2023 0941 K 3.9 03/27/2024 1201 K 3.9 11/15/2023 0941 CL 102 03/27/2024 1201 CL 101 11/15/2023 0941 CO2 28 03/27/2024 1201 CO2 29 11/15/2023 0941 BUN 7 (L) 03/27/2024 1201 BUN 10 11/15/2023 0941 CREATININE 0.70 03/27/2024 1201 CREATININE 0.72 11/15/2023 0941 Component Value Date/Time CALCIUM 9.2 03/27/2024 1201 CALCIUM 9.8 11/15/2023 0941 ALKPHOS 49 03/27/2024 1201 ALKPHOS 54 11/15/2023 0941 AST 18 03/27/2024 1201 AST 20 11/15/2023 0941 ALT 15 03/27/2024 1201 ALT 16 11/15/2023 0941 BILITOT 0.2 03/27/2024 1201 BILITOT 0.4 11/15/2023 0941 Past Endoscopy and relevant studies: EGD 08/26/20: Findings: The examined esophagus was normal. The Z-line was regular and was found 40 cm from the incisors. The entire examined stomach was normal. Biopsies were taken with a cold forceps for Helicobacter pylori testing. The examined duodenum was normal. Biopsies were taken with a cold forceps for histology x6 for celiac disease. Colonoscopy 08/26/20: Findings: A moderate amount of stool was found in the cecum and ascending colon, making visualization difficult. The terminal ileum was unable to be intubated due to looping, despite repositioning. The exam was otherwise normal throughout the examined colon. Non-targeted biopsies were obtained with a cold forceps, throughout the entire colon, to rule out microscopic colitis. There was mild oozing from a biopsy site in the sigmoid colon, s/p hemoclip x 1 with excellent hemostasis achieved. Internal hemorrhoids were found during retroflexion. The hemorrhoids were moderate. Path 08/26/20: A - Duodenum, biopsy: Duodenal mucosa, negative for diagnostic abnormality . B - Stomach, biopsy: Antrum-type mucosa with reactive gastropathy. Body/fundic-type mucosa, negative for diagnostic abnormality. C - Nontargeted colon, biopsy: Colonic mucosa, negative for diagnostic abnormality. Fibroscan 08/26/20: Median kPa: 7.4 Mean IQR: 16% (goal is <30 %) Number of valid measurements: 13 (at least 10 required) Number of invalid measurements: 0 Predicted fibrosis stage: F1 CAP (dB/m): 201 Estimated steatosis grade: 0-1/3 % hepatocytes affected: <33% Interpretation: Based on this Fibroscan result, history, clinical examination and review of laboratory and radiological data, this patient likely has stage F1 liver fibrosis. Labs 08/26/20: INR 1.1 LFTs normal Ferritin 63 AMA < 0.1 IgG 1260 LKM1 < 5 TTG Ab 0.3 (normal IgA) TSH 5.96 --> Thyroperox Ab 982 Labs 05/15/20: ARNULFO 1:320 ASMA 1:160 DsDNA negative AMA < 0.1 TTG Ab 02/12/17: 0.8 MRE 02/08/2017: 1. No evidence of abnormal small bowel wall thickening or dilated loops of small bowel. However, resolution limited in the pelvis and RIGHT lower quadrant due to crowding of the loops of bowel. Copious stool noted throughout the colon without areas of colonic wall thickening. RUQ US 01/19/17: 1. Normal right upper quadrant ultrasound without evidence of cholelithiasis oracute cholecystitis.2. Unexpected finding: Small to moderate simple appearing pericardial effusionof uncertain etiology. EGD 11/11/15: Findings: The Z-line was regular and was found 36 cm from the incisors. The entire examined stomach was normal. The examined duodenum was normal. Biopsies for histology were taken with a cold forceps for for evaluation of celiac disease. Colonoscopy 11/11/15: Findings: The perianal and digital rectal examinations were normal. The terminal ileum appeared normal. A diffuse area of granular mucosa was found in the cecum. Biopsies were taken with a cold forceps for histology. A patchy area of mildly erythematous mucosa was found in the rectum. This was biopsied with a cold forceps for histology. Path 11/11/15: DIAGNOSIS A - Duodenum, biopsy: - Duodenal mucosa within normal limits. B - Cecum, biopsy: - Colonic mucosa with melanosis coli. C - Rectum, biopsy: - Rectal mucosa within normal limits. Fibroscan 08/26/20: Median kPa: 7.4 Mean IQR: 16% (goal is <30 %) IMPRESSION: Ms. Maurice Olivas is a 45 y.o. patient with a past medical history significant for celiac disease (diagnosed 4 years ago), s/p hysterectomy for abnormal uterine bleeding, migraines, prior episodeof pericarditis and costochondritis, who was referred to GI in July 2020 for a positive ARNULFO (1:320) and smooth muscle Ab (1:160). Her constipation is likely related to her CREST syndrome in addition to a component of dyssynergic defecation. She will call her local PT office where we referred her for pelvic floor therapy to set up an appointment. We will see if trulance is covered with her insurance. We discussed doing daily glycerin suppositories, retrying senna, can add dulcolax as needed, and digital rectal simulation. I will also reach out to her market stall vendor to see if they have other thoughts. We generally do not recommend TPN as we need to use her gut. RECOMMENDATIONS: - can retry senna - continue colace - pelvic floor therapy referral in, Karolina will call - daily glycerin suppositories - increase fruit/vegetable intake, hydration - will see if trulance is covered Follow up 3 months This case was discussed with Dr. Aiken. Unruly Ramirez MD Fellow in [place] [address] P: [phone] F: [phone] [facility] [address] [place] [address] * Karly Aiken MD - 04/20/2024 10:30 AM EST ATTENDING ATTESTATION: I have discussed the patient with the GI fellow, Dr. Ramirez and I agree with the fellow's findings, assessment, and plan as written. Karly Aiken MD Gastroenterology attending Pager [phone] documented in this encounter Plan of Treatment Upcoming Encounters Date Type Department Care Team (Latest Contact Info) Description 06/30/2024 9:45 AM EST Hospital Encounter Gastroenterology at [place] [phone] Flor Velasco MD [facility] [place] [address] 06/30/2024 9:45 AM EST - 06/30/2024 10:45 AM EST Surgery Gastroenterology at [place] [phone] Flor Velasco MD [facility] [place] [address] COLONOSCOPY, DIAGNOSTIC (WRVU 3.26) 07/27/2024 8:00 AM EST TH Visit (TeleHealth) [place] [address] Unruly Ramirez MD [facility] [place] [address] 08/03/2024 3:00 PM EST Office Visit Neurology at [address] [address] Melvin Ramírez MD [facility] [address] [place] [address] 08/25/2024 1:45 PM EDT Office Visit Rheumatology at [place] [phone] Keven Church MD [facility] [place] [address] Scheduled Procedures Name Priority Associated Diagnoses Date/Ti me COLONOSCOPY, DIAGNOSTIC (WRV U 3.26) Hematochezia 06/30/2024 9:45 AM EST documented as of this encounter Visit Diagnoses Diagnosis CREST (calcinosis, Raynaud's phenomenon, esophageal dysfunction, sclerodactyly, telangiectasia) Systemic sclerosis Constipation, unspecified constipation type Dyssynergic constipation Hematochezia Blood in stool documented in this encounter Care Teams Soaker Hides Relationship Specialty Start Date End Date Geraldo Gracia DNP [address] [place] [address] PCP - General Family Medicine 10/01/22 documented as of this encounter
--- OUTSIDE RECORDS SUMMARY | 2024-06-23 18:17 | XMS_ITS | Encounter Summary ---
[place] [address] Care Team Providers Care Assembly Leader Name Role Phone Geraldo Gracia DNP Primary Care Provider Encounter Details Date Type Department Care Team (Late st Contact Info) Description 04/10/2024 Specialty [place] [phone] Krysta Arnold, WEB CONSULTANT Benefits Investigation (belimumab) for Rheumatology Social History Tobacco Use Types Packs/Day Years Used Date Smoking Tobacco: Former Cigarettes Q uit: 1992 Smokeless Tobacco: Never Comments:In high school smok ed maybe a 0.5 of a cigarette daily Alcohol Use Standard Drinks/Week Comments Yes 0 (1 standard drink = 0.6 oz pur e alcohol) < once a month IPV Inpatient Questions Answer Date Recorded Does [...] PM EDT documented as of this encounter Progress Notes * Krysta Arnold CPHT - 04/10/2024 11:35 AM EST [facility] has completed a benefits investigation for Karolina Olivas to review their eligibility to fill at [facility]. Per patient's medication list they are prescribed Benlysta and the medication is not able to be filled at the [facility]. At this time the patient's insurance mandates this medication to be filled through [facility]. * Krysta Arnold CPHT - 04/10/2024 11:35 AM EST [facility] Benefits Investigation The [facility] has completed a benefits investigation for Karolina Olivas to review their eligibility to fill at [facility]. 05/05/2024 3:22 PM Benefits Investigation Medication Belimumab Prescription Status Insurance Update Dispense Quantity 4 Dispense Units mL Day Supply 28 Insurance Status Insured Medication Coverage Status Medication covered with PA on file [facility] [employer] [facility] [id number] PCN adv Group [id number] Can patient fill with [facility]? No Anticipated Pharmacy [facility] Is this a conversion opportunity? No Expected Copay N/A Result of Benefits Investigation: No further work-up is required at this time Expected Copay N/A For any questions relating to this Benefits Investigation please reach out directly to your section's specialty pharmacist, or the specialty pharmacy team at [facility] Thank you, Krysta Arnold CPHT 05/05/24 3:23 PM documented in this encounter Plan of Treatment Upcoming Encounters Date Type Department Care Team (Latest Contact Info) Description 06/30/2024 9:45 AM EST Hospital Encounter [place] [address] Flor Velasco MD [facility] [place] [address] 06/30/2024 9:45 AM EST - 06/30/2024 10:45 AM EST Surgery Gastroenterology at [place] [phone] Flor Velasco MD [facility] [place] [address] COLONOSCOPY, DIAGNOSTIC (WRVU 3.26) 07/27/2024 8:00 AM EST TH Visit (TeleHealth) [place] [address] Unruly Ramirez MD [facility] [place] [address] 08/03/2024 3:00 PM EST Office Visit Neurology at [address] [phone] Melvin Ramírez MD [facility] [place] [address] 08/25/2024 1:45 PM EDT Office [place] [phone] Keven Church MD [facility] [place] [address] Scheduled Procedures Name Priority Associated Diagnoses Date/Ti me COLONOSCOPY, DIAGNOSTIC (WRV U 3.26) Hematochezia 06/30/2024 9:45 AM EST documented as of this encounter Visit Diagnoses Not on filedocumented in this encounter Care Teams Assembly Leader Relationship Specialty Start Date End Date Geraldo Gracia DNP [address] [place] [address] PCP - General Family Medicine 10/01/22 documented as of this encounter
--- OUTSIDE RECORDS SUMMARY | 2024-06-23 18:17 | XMS_ITS | Encounter Summary ---
[place] [address] Care Team Providers Care Internet Sales Representative Name Role Phone Geraldo Gracia DNP Primary Care Provider +1- [phone] Reason for Visit * Reason Comments Prior Authorization Benlysta 200mg/ml SO AJ Encounter Details Date Type Department Care Team (Late st Contact Info) Description 04/12/2024 Specialty [place] [phone] Rhonda Garza, SR. PRICING ANALYST Social History Tobacco Use Types Packs/Day Years [...] as of this encounter Progress Notes * Rhonda Garza CPHT - 04/12/2024 11:12 AM EST [facility], Medication Prior Authorization Submission Patient: Karolina Olivas Patient : 1975 Patient Address: [address] [place] [phone] (home) Medication Name: BENLYSTA 200 MG/ML SUBCUTANEOUS AUTO-INJECTOR Medication ID: [id number] Subscriber Insurance: [employer]) Subscriber Insurance Comment: Phone: Fax: Physician: YAIMA STEEL Physician Comment: Sent Via: Fax Brasher: Ref/Case/PA#: Medication Strength Frequency Requested: Inject the contents of one pen(200mg) subcutaneously every7 days Qty/Day Supply: 09/25 New Start: Renewal Diagnosis & ICD-10 Code: SLE M32.9 Patient Notified: Yes Submission Notes: Tamie Garza CPHT 04/12/24 11:14 AM * Rhonda Garza CPHT - 04/12/2024 11:12 AM EST [facility], Prior Authorization Approval Medication Name: BENLYSTA 200 MG/ML SUBCUTANEOUS AUTO-INJECTOR Medication ID: [id number] Approval Dates: 04/12/2024 to 04/12/2025 Insurance requirements/notes: None Other Notes: None Case/Reference #: [id number] Approval notification Received via: Fax Copay: N/A Copay assistance: None Copay Notes: Insurance mandated Pharmacy: [facility] Special[facility] Pharmacy: No Patient Notified: Yes Pharmacy staff will be reaching out to the patient to inform them of their medication's [facility]. If applicable, a pharmacist will speak with the patient to offer our specialty pharmacy services and to arrange delivery of their medication. Rhonda Garza CPHT 04/13/24 9:03 AM documented in this encounter Plan of Treatment Upcoming Encounters Date Type Department Care Team (Latest Contact Info) Description 06/30/2024 9:45 AM EST Hospital En[place] [address] Flor Velasco MD [facility] [place] [address] 06/30/2024 9:45 AM EST - 06/30/2024 10:45 AM EST [place] [address] Flor Velasco MD [facility] [place] [address] COLONOSCOPY, DIAGNOSTIC (WRVU 3.26) 07/27/2024 8:00 AM EST TH Visit (TeleHealth) [place] [address] Unruly Ramirez MD [facility] [place] [address] 08/03/2024 3:00 PM EST Office Visit Neurology at [address] [phone] Melvin Ramírez MD [facility] [place] [address] 08/25/2024 1:45 PM EDT Office [place] [address] Yaima Steel MD [facility] [place] [address] Scheduled Procedures Name Priority Associated Diagnoses Date/Ti me COLONOSCOPY, DIAGNOSTIC (WRV U 3.26) Hematochezia 06/30/2024 9:45 AM EST documented as of this encounter Visit Diagnoses Not on filedocumented in this encounter Care Teams Internet Sales Representative Relationship Specialty Start Date End Date Geraldo Gracia DNP [address] [place] [address] PCP - General Family Medicine 10/01/22 documented as of this encounter
--- OUTSIDE RECORDS SUMMARY | 2024-06-23 18:17 | XMS_ITS | Encounter Summary ---
Author Organization [facility] Address [facility] [place] [address] Care Team Providers Care Dehydration Plant Operator Name Role Phone Geraldo Gracia DNP Primary Care Provider Encounter Details Date Type Department Care Team (Late st Contact Info) Description 06/21/2024 Orders [place] [phone] Unruly Ramirez MD [facility] [place] [address] Hematochezia Social History Tobacco Use Types Packs/Day Years Used Date Smoking Tobacco: Former Cigarettes Q uit: 1992 Smokeless Tobacco: Never Comments:In high school smok ed maybe a 0.5 of a cigarette daily Alcohol Use Standard Drinks/Week Comments Yes 0 (1 standard drink = 0.6 oz pur e alcohol) < once a month [facility] Inpatient Questions Answer Date Recorded Does [...] PM EDT documented as of this encounter Plan of Treatment Upcoming Encounters Date Type Department Care Team (Latest Contact Info) Description 06/30/2024 9:45 AM EST Hospital Encounter [place] [address] Flor Velasco MD [facility] [address] 06/30/2024 9:45 AM EST - 06/30/2024 10:45 AM EST Surgery [place] [phone] Flor Velasco MD [facility] [place] [address] COLONOSCOPY, DIAGNOSTIC (WRVU 3.26) 07/27/2024 8:00 AM EST TH Visit (TeleHealth) [place] [phone] Unruly Ramirez MD [facility] [place] [address] 08/03/2024 3:00 PM EST Office Visit Neurology at [address] [phone] Melvin Ramírez MD [facility] [place] [address] 08/25/2024 1:45 PM EDT Office [place] [phone] Keven Church MD [facility] [place] [address] Scheduled Orders Name Type Priority Associated Diagnoses Orde r Schedule ENDOSCOPY CASE REQUEST: COLONOSCOPY, DIAGNOSTIC (WRVU 3.26) Procedures Routine Hematochezia Ordered: 06/21/2024 Scheduled Procedures Name Priority Associated Diagnoses Date/Ti me COLONOSCOPY, DIAGNOSTIC (WRV U 3.26) Hematochezia 06/30/2024 9:45 AM EST documented as of this encounter Visit Diagnoses Diagnosis Hematochezia Blood in stool Hematochezia Blood in stool documented in this encounter Care Teams Dehydration Plant Operator Relationship Specialty Start Date End Date Geraldo Gracia DNP [address] [place] [id number] PCP - General Family Medicine 10/01/22 documented as of this encounter
--- OUTSIDE RECORDS SUMMARY | 2024-06-23 18:17 | XMS_ITS | Clinical Summary ---
Author Organization [facility] [place] [address] Care Team Providers Care Oral And Maxillofacial Surgery Name Role Phone Geraldo Gracia DNP Primary Care Provider [phone] Allergies Active Allergy Reactions Criticality Noted Date Comments Codeine Phosphate CIS - Nausea/Vomiting Doxycycline Monohydrate CIS - HANDS GET NUMB Gluten Nausea And Vomiting,Rash,Other (See Comments) High 10/24/2015 Also stomach aches very bad Medications Medication Sig Dispensed Refills Start Date End Date Status amitriptyline (Elavil) 25 mg Tablet Take 12.5 mg by mouth nightly. 0 10/17/2015 Active traZODone (Desyrel) 50 mg Tablet Take 25 mg by mouth nightly. Active magnesium 250 mg Tablet Take 500 mg by mouth nightly. Active melatonin 3 mg Tablet Take 3 mg by mouth nightly. Active levothyroxine (Synthroid) 50 mcg Tablet Take 1 tablet by mouth daily. 60 tablet 10/21/2021 Active hydrOXYchloroQUINE (Plaquenil) 200 mg tabletIndications:s ystemic lupus erythematosus Take 1 tablet by mouth daily. Indications: systemic lupus erythematosus, an autoimmune disease 90 tablet 3 11/15/[address] (Cymbalta) [address] capsuleIndications: CREST (calcinosis, Raynaud's phenomenon, esophageal dysfunction, sclerodactyly, telangiectasia),Und ifferentiated connective tissue disease,Other forms of systemic lupus erythematosus, unspecified organ involvement status Take 1 capsule by mouth daily. 90 tablet 3 11/15/2023 Active prucalopride (Motegrity) 2 mg tablet Take 1 tablet by mouth daily. 90 tablet 1 01/05/2024 Active Additional Information Patient not taking.Reported on 04/20/2024 senna (Senokot) 8.6 mg tablet Take 1 tablet by mouth 2 times daily. 02/10/2024 Active polyethylene glycoL (Miralax) 17 gram/dose Powder Take 17 g by mouth 2 times daily. 02/10/2024 Active Additional Information Patient not taking.Reported on 03/27/2024 docusate sodium (Colace) 50 mg capsule Take 1 capsule by mouth 2 times daily. 02/10/2024 Active UNABLE TO FIND Take 500 mg by mouth daily. Med Name: Digestiva triphala Active belimumab (Benlysta) 200 mg/mL Auto-InjectorIndica tions:SLE M32.8 Inject 1 mL subcutaneously once a week. Indications: SLE M32.8 4 mL 5 04/07/2024 Active plecanatide (Trulance) 3 mg tablet Take 1 tablet by mouth daily. 90 tablet 04/20/2024 Active galcanezumab-gnlm (Emgality Pen) 120 mg/mL Pen Injector Inject 1 mL subcutaneously every 28 days. 1 mL 2 05/23/2024 Active Active Problems Problem Noted Date Diagnosed Date Other forms of systemic lupus erythematosus 11/2023 Migraine without aura and wi thout status migrainosus, not intractable 02/15/2024 Diarrhea 08/14/2020 Overview (08/14/2020): Added automatically from request for surgery [id number] Constipation 10/24/2015 Encounters Date Type Department Care Team Description 06/22/2024 Telephone [place] [phone] Shayla Kennedy 06/21/2024 Orders [place] [phone] Unruly Ramirez MD Hematochezia 05/17/2024 Telephone Neurology at [address] [phone] Shonna Bryant MA Prior Authorization (Emgality Pen 120 mg/mL Pen Injector) 05/15/2024 Refill Neurology at [facility] [address] [place] [address] Sheila Wesley, AVA 04/20/2024 10:30 AM EST Office Visit Gastroenterology at [place] [phone] Unruly Ramirez MD CREST (calcinosis, Raynaud's phenomenon, esophageal dysfunction, sclerodactyly, telangiectasia); Constipation, unspecified constipation type; Dyssynergic constipation 04/20/2024 Travel 04/12/2024 Specialty Pharmacy Pharmacy at [place] [phone] Rhonda Garza CPHT 04/10/2024 Specialty [place] [address] Krysta Arnold, [employer] Benefits Investigation (belimumab) for Rheumatology 04/06/2024 Refill Rheumatology at [place] [phone] Keven Church MD Other forms of systemic lupus erythematosus, unspecified organ involvement status 04/05/2024 Telephone Rheumatology at [place] [phone] Kaylyn Moreno RN 04/03/2024 [place] [phone] Keven Church MD 03/27/2024 12:55 PM EDT Laboratory Appointment Lab [address] [place] [phone] Other forms of systemic lupus erythematosus, unspecified organ involvement status 03/27/2024 10:30 AM EDT Office Visit Rheumatology at [place] [phone] Luis Bradley MD Waitayangkoon, [place], MD Other forms of systemic lupus erythematosus, unspecified organ involvement status 03/27/2024 Travel from Last 3 Months Family History Medical History Relation Comments Asthma Brother 1 Prostate Cancer Brother 2 neg 47 gene pane l Food Allergy Child Migraines Daughter Asthma Father Skin Cancer Maternal Uncle No Known Problems Mother Uterine Cancer Paternal Aunt Colorectal Cancer Paternal Cousin at 39, no genetic testing Colorectal Cancer Paternal Grandfather Breast Cancer Paternal Grandmother Allergic Rhinitis Neg Hx Relation Status Comments Brother 1 Brother 2 Child Daughter Alive Father Alive Maternal Uncle Mother Alive Paternal Aunt Paternal Cousin Paternal Grandfather Paternal Grandmother Social History Tobacco Use Types Packs/Day Years Used Date Smoking Tobacco: Former Cigarettes Q uit: 1992 Smokeless Tobacco: Never Tobacco Cessation:Counseling Given: Not Answered Comments:In high school smoked maybe a 0.5 of a cigarette daily [...] Orientation Straight 08/20/2020 6: 21 PM EDT Last Filed Vital Signs Vital Sign Reading Time Taken Comments Blood Pressure 111/65 04/20/2024 10:27 AM EST Pulse 97 04/20/2024 10:27 AM EST Temperature 36.6 ??C (97.8 ??F) 03/27/2024 10:24 AM E DT Respiratory Rate 18 03/27/2024 10:24 AM EDT Oxygen Saturation 100% 03/27/2024 10:24 AM EDT Inhaled Oxygen Concentration - - Weight 49.7 kg (109 lb 9.6 oz) 04/20/2024 10:27 AM EST Height 157.5 cm (5' 2) 03/27/2024 10:24 AM EDT Body Mass Index 20.05 03/27/2024 10:24 AM EDT Plan of Treatment Upcoming Encounters Date Type Department Care Team (Latest Contact Info) Description 06/30/2024 9:45 AM EST Hospital Encounter Gastroenterology at [place] [phone] Flor Velasco MD [facility] [place] [address] 06/30/2024 9:45 AM EST - 06/30/2024 10:45 AM EST [place] [phone] Flor Velasco MD [facility] [place] [address] COLONOSCOPY, DIAGNOSTIC (WRVU 3.26) 07/27/2024 8:00 AM EST TH Visit (TeleHealth) Gastroenterology at [place] [phone] Unruly Ramirez MD [facility] [place] [address] 08/03/2024 3:00 PM EST Office Visit Neurology at [address] [phone] Melvin Ramírez MD [facility] [place] [address] 08/25/2024 1:45 PM EDT Office [place] [phone] Keven Church MD [facility] [place] [address] Scheduled Procedures Name Priority Associated Diagnoses Date/Ti me COLONOSCOPY, DIAGNOSTIC (WRV U 3.26) Hematochezia 06/30/2024 9:45 AM EST Health Maintenance Due Date Last Done Comments CT Colonography 1974 FIT DNA 1975 FIT 1975 Sigmoidoscopy 1975 HIV screen 1992 Hepatitis B vaccine (0-59 yrs) (1) 1993 Tetanus/Diphtheria/Pertussis Vaccines (1 - Tdap) 1993 HPV test 2004 PAP Smear 2004 Breast Cancer Share Decision Needed 2014 Breast Cancer screening 2014 Covid-19 Vaccine (1 - 2023-2 5 season) 2024 Influenza (Flu) vaccine (1 o f 1 - Influenza standard series) 01/30/2024 Colonoscopy 07/02/2033 07/02/2023, 07/2023, 08/26/2020, Additional history exists Colorectal Cancer Screening 07/02/2033 Sigmoidoscopy (10 year) with FIT yearly 07/02/2033 07/02/2023, 07/02/2023, 08/26/2020, Additional history exists Hepatitis C Screening Completed 06/08/2022 Procedures Procedure Name Priority Date/Time Associated Diagnosis Comments LAB SCAN 06/20/2024 12:00 AM EST DSDNA ANTIBODY Routine 03/27/2024 12:01 PM EDT Other forms of systemic lupus erythematosus, unspecified organ involvement status PROTEIN/CREATININE RATIO, URINE Routine 03/27/2024 12:01 PM EDT Other forms of systemic lupus erythematosus, unspecified organ involvement status SEDIMENTATION RATE Routine 03/27/2024 12 :01 PM EDT Other forms of systemic lupus erythematosus, unspecified organ involvement status CRP, ACUTE INFLAMMATION Routine 03/27/2024 12:01 PM EDT Other forms of systemic lupus erythematosus, unspecified organ involvement status CBC (WITH DIFF) Routine 03/27/2024 12:01 PM EDT Other forms of systemic lupus erythematosus, unspecified organ involvement status COMPREHENSIVE METABOLIC PANEL Routine 03/27/2024 12:01 PM EDT Other forms of systemic lupus erythematosus, unspecified organ involvement status URINALYSIS WITH REFLEX CULTURE Routine 03/27/2024 12:01 PM EDT Other forms of systemic lupus erythematosus, unspecified organ involvement status C3 COMPLEMENT Routine 03/27/2024 12:01 PM EDT Other forms of systemic lupus erythematosus, unspecified organ involvement status C4 COMPLEMENT Routine 03/27/2024 12:01 PM EDT Other forms of systemic lupus erythematosus, unspecified organ involvement status COLONOSCOPY Routine 07/02/2023 8:04 AM EST HC HEPATITIS C ANTIBODY Routine 06/08/2022 4:14 PM EST High risk medication use from Last 3 Months or Most Recently Relevant to Health Maintenance Results * Scan Doc: Lab (06/20/2024 12:00 AM EST) Narrative 06/20/2024 12:00 AM EST Ordered by an unspecified provider. Scanning Provider MEDIA MGR SCAN EXT O RDR/RSLT * dsDNA Antibody (03/27/2024 12:01 PM EDT) dsDNA Ab 0.9 <=15.0 IU/mL 03/28/2024 12:44 PM EDT [facility] Blood VENOUS BLOOD SPECIMEN / Unknown Venipuncture / Unknown 03/27/2024 12:01 PM EDT 03/27/2024 12:01 PM EDT Narrative [facility] - 03/28/2024 12:44 PM EDT Reference Range: <10 - Negative 10-15 - Equivocal >15 - Positive This dsDNA antibody result was generated using a fluoroenzyme immunoassay on the Leaders2020 250 analyzer. This quantitative test is designed to detect IgG antibodies directed against double stranded DNA in human serum. The presence of antibodies that recognize dsDNA is a highly specific marker for systemic lupus erythematosus. Luis Bradley MD IMMUNOLOGY ORDERABLE S [facility] [place] [address] * CRP, acute inflammation (03/27/2024 12:01 PM EDT) C-Reactive Protein <3.0 <=4.9 mg/L 03/27/2024 1:03 PM EDT [facility] Blood VENOUS BLOOD SPECIMEN / Unknown Venipuncture / Unknown 03/27/2024 12:01 PM EDT 03/27/2024 12:01 PM EDT Luis Bradley MD CHEMISTRY ORDERABLES Performing Organization Address City/[facility]/ZIP Co de Phone Number [facility] [place] [address] * Protein/Creatinine Ratio, urine (03/27/2024 12:01 PM EDT) Protein, Urine 8 0 - 12 mg/dL 03/27/2024 1:05 PM EDT [facility] Creatinine, Urine 82 mg/dL 03/27/2024 1:05 PM EDT [facility] Protein / Creatinine Ratio, Urine 0.1 ratio 03/27/2024 1:05 PM EDT [facility] Urine URINE SPECIMEN / Unknown Non Blood Collection / Unknown 03/27/2024 12:01 PM EDT 03/27/2024 12:01 PM EDT Luis Bradley MD URINE ORDERABLES [facility] [place] [address] * Urinalysis with reflex Culture (03/27/2024 12:01 PM EDT) Glucose, Urine Dipstick Negative Negative 03/27/2024 1:18 PM EDT [facility] Protein, Urine Dipstick Negative Negative 03/27/2024 1:18 PM EDT [facility] Bilirubin, Urine Dipstick Negative Negative 03/27/2024 1:18 PM EDT [facility] Comment:Clinical correlation required for positive Urine Bilirubin results as false positive may occur with some drugs and drug related products. If a false positive is suspected a serum total bilirubin should be considered if clinically indicated. Urobilinogen, Urine Dipstick Normal Normal, 0.2 mg/dL, 1.0 mg/dL 03/27/2024 1:18 PM EDT [facility] pH, Urine (dipstick) 7.5 5.0 - 8.0 03/27/2024 1:18 PM EDT [facility] Blood, Urine Dipstick Negative Negative 03/27/2024 1:18 PM EDT [facility] Ketone, Urine Dipstick Negative Negative 03/27/2024 1:18 PM EDT [facility] Nitrite, Urine Dipstick Negative Negative 03/27/2024 1:18 PM EDT [facility] Leukocytes, Urine Dipstick Negative Negative 03/27/2024 1:18 PM EDT [facility] Specific [place] Urine Automated 1.013 1.005 - 1.030 03/27/2024 1:18 PM EDT [facility] Appearance, Urine Dipstick Clear Clear 03/27/2024 1:18 PM EDT [facility] Color, Urine Dipstick Yellow Yellow, Dark Yellow 03/27/2024 1:18 PM EDT [facility] CULTURE ADDED? 03/27/2024 1:18 PM EDT [facility] Urine URINE SPECIMEN OBTAINED BY CLEAN CATCH PROCEDURE / Unknown Non Blood Collection / Unknown 03/27/2024 12:01 PM EDT 03/27/2024 12:01 PM EDT Luis Bradley MD URINE ORDERABLES [facility] [place] [address] * Sedimentation rate (03/27/2024 12:01 PM EDT) Pathologist [facility] Sedimentation Rate Automated 3 2 - 37 mm/hr 03/27/2024 1:43 PM EDT [facility] Blood VENOUS BLOOD SPECIMEN / Unknown Venipuncture / Unknown 03/27/2024 12:01 PM EDT 03/27/2024 12:01 PM EDT Luis Bradley MD HEMATOLOGY ORDERABLE S [facility] [place] [address] * (ABNORMAL) CBC (with Diff) (03/27/2024 12:01 PM EDT) [facility] White Blood Cell 5.81 4.00 - 9.50 x10(3)/mc L 03/27/2024 2:03 PM EDT [facility] Red Blood Cell 4.26 4.00 - 5.21 x10(6)/mc L 03/27/2024 2:03 PM EDT [facility] Hemoglobin 13.7 11.7 - 15.5 g/dL 03/27/2024 2:03 PM EDT [facility] Hematocrit 40.9 35.7 - 45.8 % 03/27/2024 2:03 PM EDT [facility] Mean Cell Volume 96.0(H) 82.6 - 94.4 fL 03/27/2024 2:03 PM EDT [facility] Mean Cell Hemoglobin 32.2(H) 27.1 - 32.0 pg 03/27/2024 2:03 PM EDT [facility] Mean Cell Hemoglobin Concentration 33.5 31.7 - 35.0 g/dL 03/27/2024 2:03 PM EDT [facility] Platelet 270 145 - 357 x10(3)/mc L 03/27/2024 2:03 PM EDT [facility] Mean Platelet Volume 10.3 7.6 - 12.9 fL 03/27/2024 2:03 PM EDT [facility] RDW Standard Deviation 41.9 37.0 - 46.0 fL 03/27/2024 2:03 PM [facility] RDW coefficient of variation 12.0 11.5 - 14.1 % 03/27/2024 2:03 PM [facility] NRBC% auto 0.0 % 03/27/2024 2:03 PM [facility] NRBC Absolute <0.01 <0.01 x10(3)/mc L 03/27/2024 2:03 PM [facility] Neutrophil % 68.0 % 03/27/2024 2:03 PM [facility] Neutrophil Absolute (ANC) - Automated 3.95 1.70 - 6.10 x10(3)/mc L 03/27/2024 2:03 PM [facility] Lymph % 16.9 % 03/27/2024 2:03 PM [facility] Lymph Absolute 0.98 0.90 - 3.20 x10(3)/mc L 03/27/2024 2:03 PM [facility] Monocyte % 9.1 % 03/27/2024 2:03 PM [facility] Monocyte Absolute 0.53 0.30 - 0.90 x10(3)/mc L 03/27/2024 2:03 PM [facility] Eos % 4.3 % 03/27/2024 2:03 PM [facility] Eos Absolute 0.25 0.00 - 0.40 x10(3)/mc L 03/27/2024 2:03 PM [facility] Basophil % 1.5 % 03/27/2024 2:03 PM [facility] Baso Absolute 0.09 0.00 - 0.10 x10(3)/mc L 03/27/2024 2:03 PM [facility] Immature Gran % 0.2 % [facility] Immature Gran Absolute <0.04 0.00 - 0.04 x10(3)/mc L 03/27/2024 2:03 PM EDT [facility] Blood VENOUS BLOOD SPECIMEN / Unknown Venipuncture / Unknown 03/27/2024 12:01 PM EDT 03/27/2024 12:01 PM EDT Luis Bradley MD HEMATOLOGY ORDERABLE S [facility] [place] [address] * (ABNORMAL) C3 Complement (03/27/2024 12:01 PM EDT) Complement C3 79(L) 90 - 180 mg/dL 03/27/2024 1:06 PM EDT [facility] Blood VENOUS BLOOD SPECIMEN / Unknown Venipuncture / Unknown 03/27/2024 12:01 PM EDT 03/27/2024 12:01 PM EDT Luis Bradley MD CHEMISTRY ORDERABLES [facility] [place] [address] * C4 Complement (03/27/2024 12:01 PM EDT) Complement C4 10 10 - 40 mg/dL 03/27/2024 1:06 PM EDT [facility] Blood VENOUS BLOOD SPECIMEN / Unknown Venipuncture / Unknown 03/27/2024 12:01 PM EDT 03/27/2024 12:01 PM EDT Luis Bradley MD CHEMISTRY ORDERABLES [facility] [place] [address] * (ABNORMAL) Comprehensive metabolic panel (03/27/2024 12:01 PM EDT) Glucose 89 65 - 199 mg/dL 03/27/2024 1:03 PM [facility] Comment:Glucose Concentratio n >=200 mg/dL plus symptoms is consistent with Diabetes Mellitus. Blood Urea Nitrogen 7(L) 8 - 18 mg/dL 03/27/2024 1:03 PM [facility] Creatinine 0.70 0.70 - 1.20 mg/dL 03/27/2024 1:03 PM [facility] Sodium 140 135 - 145 mMol/L 03/27/2024 1:03 PM [facility] Potassium 3.9 3.5 - 5.0 mMol/L 03/27/2024 1:03 PM [facility] Chloride 102 98 - 107 mMol/L 03/27/2024 1:03 PM [facility] Carbon Dioxide 28 22 - 31 mMol/L 03/27/2024 1:03 PM [facility] Anion Gap 10 5 - 15 mMol/L 03/27/2024 1:03 PM [facility] Calcium 9.2 8.5 - 10.5 mg/dL 03/27/2024 1:03 PM [facility] Protein, Total 7.6 6.1 - 8.0 g/dL 03/27/2024 1:03 PM [facility] Albumin 4.8 3.2 - 5.2 g/dL 03/27/2024 1:03 PM [facility] Aspartate Aminotransferase 18 <=30 unit/L 03/27/2024 1:03 PM [facility] Alanine Aminotransferase 15 0 - 30 unit/L 03/27/2024 1:03 PM [facility] Alkaline Phosphatase 49 35 - 105 unit/L 03/27/2024 1:03 PM [facility] Bilirubin, Total 0.2 <=1.3 mg/dL 03/27/2024 1:03 PM [facility] Est Glomerular Filtration Rate - Female 106 mL/min/1. 73 m?? 03/27/2024 1:03 PM EDT [facility] Comment: This patient's estimated GFR was calculated using the 2020 CKD-EPI equation. The estimated GFR can vary from the measured GFR by up to 30% in the absence of rapidly changing kidney function. Assessment of the estimated GFR is not appropriate when creatinine concentrations are rapidly changing. For clinical situations in which a more precise estimate of GFR is necessary, consider alternative methods of GFR estimation such as a 24-hour urine creatinine clearance. Assignment of CKD stage 1 - 5 for patients with an eGFR near the transition point between stages may be based on clinical assessment of muscle mass and symptoms in addition to eGFR. Link: eGFR Calculator [employer] Fasting Status No 03/27/2024 1:03 PM EDT [facility] Blood VENOUS BLOOD SPECIMEN / Unknown Venipuncture / Unknown 03/27/2024 12:01 PM EDT 03/27/2024 12:01 PM EDT Luis Bradley MD CHEMISTRY ORDERABLES Performing Organization Address City/State/[facility] Co de Phone Number [facility] [place] [address] * COLONOSCOPY (07/02/2023 8:04 AM EST) COLONOSCOPY [facility] Endoscopy Procedure Date: 07/02/2023 8:04 AM ? Patient Name: Karolina Olivas ? Date of : 1975 ? Age: 48 ? Order #: [id number] ? Instrument Name: [id number] ? Procedure: ? Colonoscopy Indications: ? Screening for colorectal malignant ? neoplasm Patient Profile: ? This is a 48 year old female. Refer ? to note in patient chart for ? documentation of history and ? physical. Providers: ? Phong Khan MD, Klaudia ? Kirit Buckner Referring : ?Geraldo Gracia Requesting Provider: ?? Herlinda Khoury Kady Medicines: ? See the other procedure note for ? documentation of the administered ? medications, additional Midazolam 1 ? mg IV, Fentanyl 50 micrograms IV Complications: ? No immediate complications. Procedure: ? Pre-Anesthesia Assessment: ? - Prior to the procedure, a History ? and Physical was performed, and ? patient medications and allergies ? were reviewed. The patient's ? tolerance of previous anesthesia ? was also reviewed. The risks and ? benefits of the procedure and the ? sedation options and risks were ? discussed with the patient. All ? questions were answered, and ? informed consent was obtained. ? Prior Anticoagulants: The patient ? has taken no anticoagulant or ? antiplatelet agents. ASA Grade ? Assessment: II - A patient with ? mild systemic disease. After ? reviewing the risks and benefits, ? the patient was deemed in ? satisfactory condition to undergo ? the procedure. ? The procedure, indications, ? benefits, risks and alternatives ? were explained to the patient. ? Specifically discussed were ? potential complications including, ? but not limited to, bleeding, ? perforation, infection, missing a ? cancer, and adverse medication ? reactions. The patient was placed ? in the left lateral decubitus ? position, and a digital rectal exam ? was performed. The Colonoscope was ? inserted in the anus and under ? direct visualization, advanced to ? the terminal ileum, with ? identification of the appendiceal ? orifice and IC valve. Careful ? inspection was made as the ? colonoscope was withdrawn. The ? colonoscopy was performed without ? difficulty. The patient tolerated ? the procedure well. The quality of ? the bowel preparation was evaluated ? using the BBPS ([place] Bowel ? Preparation Scale) with scores of: ? Right Colon = 2 (minor amount of ? residual staining, small fragments ? of stool and/or opaque liquid, but ? mucosa seen well), Transverse Colon ? = 3 (entire mucosa seen well with ? no residual staining, small ? fragments of stool or opaque ? liquid) and Left Colon = 2 (minor ? amount of residual staining, small ? fragments of stool and/or opaque ? liquid, but mucosa seen well). The ? total BBPS score equals 7. The ? quality of the bowel preparation ? was good. The terminal ileum, ? ileocecal valve, appendiceal ? orifice, and rectum were ? photographed. Scope withdrawal time ? was 11 minutes. ? Findings: ? The perianal and digital rectal examinations were ? normal. ? The colon (entire examined portion) was grossly ? redundant and tortuous particularly in the sigmoid ? colon, and hepatic flexure to ascending colon and ? cecum . Advancing the scope required withdrawing and ? reinserting the scope, straightening and shortening ? the scope to obtain bowel loop reduction and using ? scope torsion. ? Non-bleeding internal hemorrhoids were found during ? retroflexion. ? The terminal ileum appeared normal. ? The ascending colon and cecum were notable for ? diffuse mildly congested mucosa. This was biopsied ? with a cold large-capacity forceps for histology. ? The exam was otherwise without abnormality on direct ? and retroflexion views. ? Moderate Sedation: ? I was present during the intraservice time as ? documented by the sedation RN. Impression: ?- Redundant colon. ? - Non-bleeding internal hemorrhoids. ? - The examined portion of the ileum ? was normal. ? - Congested mucosa in the ascending ? colon and in the cecum. This ? appears benign and suspect it may ? be related to redundancy in the ? right colon. Biopsied. ? - The examination was otherwise ? normal on direct and retroflexion ? views. Recommendation: ?- Await pathology results. ? - Repeat colonoscopy in 10 years ? for screening purposes. ? Attending Participation: ? I personally performed the entire procedure. ? I was present during the intraservice time as ? documented by the sedation RN. ? Dr. Deon Khan ___ Phong Khan MD 07/02/2023 9:14:36 AM Number of Addenda: 0 Note Initiated On: 07/02/2023 8:04 AM PROVATION 07/02/2023 8:04 AM EST Geraldo Gracia DNP GENERAL SURGICAL OR DERABLES PROVATION * Hepatitis C Antibody (06/08/2022 4:14 PM EST) Hepatitis C Antibody Negative Negative [facility] Blood 06/08/2022 4:14 PM EST 06/08/2022 4:32 PM EST Narrative Resulting Agency Comment Spec In Lab Shay Blanco MD CHEMISTRY ORDERABLES [facility] [place] [place] [address] from Last 3 Months or Most Recently Relevant to Health Maintenance Advance Directives * Attempt Cardiopulmonary Resuscitation - Inpatient (Latest Code Status on File) Date Activated Date Inactivated Comments 02/25/2023 8:08 AM 02/25/2023 2:20 PM Question Answer Comments Code Status decision made by: Patient Care Teams Oral And Maxillofacial Surgery Relationship Specialty Start Date End Date Geraldo Gracia DNP [address] [place] [address] PCP - General Family Medicine 10/01/22
--- OUTSIDE RECORDS SUMMARY | 2024-06-23 18:17 | XMS_ITS | Encounter Summary ---
[place] [address] Care Team Providers Care Water Service Supervisor Name Role Phone Geraldo Gracia DNP Primary Care Provider Encounter Details Date Type Department Care Team (Latest Contact Info) Description 04/20/2024 Travel Social History Tobacco Use Types Packs/Day Years Used Date Smoking Tobacco: Former Cigarettes Q uit: 1992 Smokeless Tobacco: Never Comments:In high school smok ed maybe a 0.5 of a cigarette daily Alcohol Use Standard Drinks/Week Comments Yes 0 (1 standard drink = 0.6 oz pur e alcohol) < once a month [facility] Inpatient Questions Answer Date Recorded Does [...] 9:45 AM EST Hospital Encounter Gastroenterology at [place] [phone] Flor Velasco MD [facility] [place] [address] 06/30/2024 9:45 AM EST - 06/30/2024 10:45 AM EST Surgery Gastroenterology at [address] Flor Velasco MD [facility] [place] [address] COLONOSCOPY, DIAGNOSTIC (WRVU 3.26) 07/27/2024 8:00 AM EST TH Visit (TeleHealth) Gastroenterology at [place] [phone] Unruly Ramirez MD [facility] [place] [address] 08/03/2024 3:00 PM EST Office Visit Neurology at [address] [phone] Melvin Ramírez MD [facility] [place] [place] [address] 08/25/2024 1:45 PM EDT Office Visit Rheumatology at [place] [phone] Keven Church MD [facility] [place] [address] Scheduled Procedures Name Priority Associated Diagnoses Date/Ti me COLONOSCOPY, DIAGNOSTIC (WRV U 3.26) Hematochezia 06/30/2024 9:45 AM EST documented as of this encounter Visit Diagnoses Not on filedocumented in this encounter Care Teams Water Service Supervisor Relationship Specialty Start Date End Date Geraldo Gracia DNP [address] [place] [address] [place] [address] PCP - General Family Medicine 10/01/22 documented as of this encounter
--- OUTSIDE RECORDS SUMMARY | 2024-06-23 18:17 | XMS_ITS | Encounter Summary ---
[place] [address] Care Team Providers Care Medical Secretary Receptionist Name Role Phone Geraldo Gracia DNP Primary Care Provider Encounter Details Date Type Department Care Team (Late st Contact Info) Description 06/22/2024 Telephone [place] [phone] Shayla Kennedy Social History Tobacco Use Types Packs/Day Years Used Date Smoking Tobacco: Former Cigarettes Q uit: 1992 Smokeless Tobacco: Never Comments:In high school smok ed maybe a 0.5 of a cigarette daily Alcohol Use Standard Drinks/Week Comments Yes 0 (1 standard drink = 0.6 oz pur e alcohol) < once a month [facility] Inpatient Questions Answer Date Recorded Does [...] encounter Miscellaneous Notes * Telephone Encounter - Marcia, Shayla A - 06/22/2024 8:43 AM EST Karolina L Maurice Brendon [phone] Diagnosis/Indication: diarrhea last 4 weeks (from baseline constipation), now with bright red blood Please review patient chart to confirm if previous Endoscopy procedure was performed within system. If yes, take note of Anesthesia type used. If previous procedure found, and with MAC/propofol Anesthesia support was used, schedule this procedure with Anesthesia and skip the Anesthesia portion of questions. If not performed within system, not performed at all, or performed with IVCS, ask Anesthesia questions. SCHEDULING QUESTIONS (ask all patient these questions) Have you ever had a/an Colonoscopy before? Yes: Date 07/02/23 If yes, did you have any problems with the procedure (such as waking up during the procedure, pain or difficulties afterwards, etc.)? No What type of sedation was used: IV Conscious Sedation (ASK ONLY FOR COLONOSCOPY PROCEDURES) Are you aware, or have you ever been told that you had a poor prep or failed prep with a previous colonoscopy? No If yes, assign the Extended MiraLAX Prep (ASK ONLY FOR COLONOSCOPY PROCEDURES) Do you have an ongoing history of constipation? (E.g., hard stools, >2 days without a bowel movement, straining or difficulty passing stool) No If yes, assign the Extended MiraLAX Prep Do you take any blood thinners or have you been diagnosed with a bleeding disorder that increases your risk of bleeding with procedures? No Do you have a Pacemaker or Defibrillator device? If yes, send pool message to Cardiology with patient information and date or procedure. No Do you have diabetes? If yes, call PCP/managing provider to discuss use of prep and any questions or concerns related to. No If yes, assign the Extended MiraLAX Prep Do you take any iron supplements or vitamins that contain iron? No Do you take a GLP-1 medication for diabetes and/or weight loss? All patients who say yes, regardless of procedure, must be on clear liquids day prior to procedure. If patient answers yes, you must note which medication and instruct to hold the medication prior to procedure for one dose. Brand names include Wegovy, Ozempic, Trulicity, Mounjaro, Zepbound, Rynelsus, Saxenda, Victoza, Byetta, Bydaniellereblayne, Soliqua, Xucristi No Do you regularly take prescription opioid pain medications on a daily basis? (Includes oxycodone, Percocet, Suboxone, methadone, etc.) No If yes, assign the Extended MiraLAX Prep Do you have a preference regarding the gender of your provider? No ANESTHESIA QUESTIONS (YES to any question, please book with Anesthesia support) Have you ever been diagnosed with Pulmonary Hypertension and/or Congential Heart Disease? No Have you been diagnosed with A-Fib (atrial fibrillation) that is NOT being well controled with medications? No Have you ever had an allergic or adverse reaction to Fentanyl or Versed? No Have you had a problem with sedation or anesthesia? (Waking up during procedure, extreme confusion after, etc.) No Do you have a diagnosis of Obstructive Sleep Apnea that requires the use of a c- pap machine? No Do you use an oxygen tank at home? No Do you use a rescue inhaler more than twice per day? (COPD, severe asthma) No Do you experience breathing problems when you lay flat for a period of time? No Do you regularly take prescription opioid pain medications on a daily basis? (Includes oxycodone, Percocet, Suboxone, methadone, etc.) No SCHEDULING CONFIRMATIONS: Please note any and all parts of your conversation with the patient here. We offer all new patients an opportunity to have an appointment with one of our associate care providers to learn more about your upcoming procedure, ask questions and get answers. These appointmentsare offered via telehealth. Would you be interested in scheduling this appointment? (Only ask if NEW referral patient; skip this question if [facility] provider ordered the procedure.) No Is there any other information or concerns you would like to us to share with your care team in relation to your upcoming scheduled procedure? No You must have a responsible green party who will drive you to your procedure, stay on campus for the entire duration of your procedure, and drive you home from your procedure. Who will likely be your road oiling truck driver for the procedure? *Please Verify the height and weight, and adjust if height and/or weight have changed* Estimated body mass index is 20.05 kg/m?? as calculated from the following: Height as of 03/27/24: 157.5 cm (5' 2). Weight as of 04/20/24: 49.7 kg (109 lb 9.6 oz). *Patient must be scheduled for Anesthesia support if BMI is 40 or above* Height: 5'2 Weight: 104 BMI: 19 Age:48 y.o. documented in this encounter Plan of Treatment Upcoming Encounters Date Type Department Care Team (Latest Contact Info) Description 06/30/2024 9:45 AM EST Hospital Encounter Gastroenterology at [place] [phone] Flor Velasco MD [facility] [place] [address] 06/30/2024 9:45 AM EST - 06/30/2024 10:45 AM EST Surgery [place] [phone] Flor Velasco MD [facility] [place] [address] COLONOSCOPY, DIAGNOSTIC (WRVU 3.26) 07/27/2024 8:00 AM EST TH Visit (TeleHealth) Gastroenterology at [place] [phone] Unruly Ramirez MD [facility] [place] [address] 08/03/2024 3:00 PM EST Office Visit Neurology at [address] [phone] Melvin Ramírez MD [facility] [place] [address] 08/25/2024 1:45 PM EDT Office [place] [phone] Keven Church MD [facility] [place] [address] Scheduled Procedures Name Priority Associated Diagnoses Date/Ti me COLONOSCOPY, DIAGNOSTIC (WRV U 3.26) Hematochezia 06/30/2024 9:45 AM EST documented as of this encounter Visit Diagnoses Not on filedocumented in this encounter Care Teams Medical Secretary Receptionist Relationship Specialty Start Date End Date Geraldo Gracia DNP [address] [place] [id number] PCP - General Family Medicine 10/01/22 documented as of this encounter
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
--- OUTSIDE RECORDS SUMMARY | 2024-06-23 18:17 | XMS_ITS | Encounter Summary ---
Author Organization [facility] [address] Care Team Providers Care Brim Ironer Hand Name Role Phone Geraldo Gracia DNP Primary Care Provider Encounter Details Date Type Department Care Team (Late st Contact Info) Description 04/06/2024 [place] [address] Keven Church MD [facility] [place] [address] Other forms of systemic lupus erythematosus, unspecified organ involvement status Social History Tobacco Use Types Packs/Day Years [...] 9:45 AM EST Hospital Encounter Gastroenterology at [place] [phone] Flor Velasco MD [facility] [place] [address] 06/30/2024 9:45 AM EST - 06/30/2024 10:45 AM EST Surgery Gastroenterology at [place] [phone] Flor Velasco MD [facility] [place] [address] COLONOSCOPY, DIAGNOSTIC (WRVU 3.26) 07/27/2024 8:00 AM EST TH Visit (TeleHealth) Gastroenterology at [place] [phone] Unruly Ramirez MD [facility] [place] [address] 08/03/2024 3:00 PM EST Office Visit Neurology at [address] [phone] Melvin Ramírez MD [facility] [address] [place] [address] 08/25/2024 1:45 PM EDT Office [place] [address] Keven Church MD [facility] [place] [address] Scheduled Procedures Name Priority Associated Diagnoses Date/Ti me COLONOSCOPY, DIAGNOSTIC (WRV U 3.26) Hematochezia 06/30/2024 9:45 AM EST documented as of this encounter Visit Diagnoses Diagnosis Other forms of systemic lupus erythematosus, unspecified organ involvement status Hematochezia Blood in stool documented in this encounter Care Teams Brim Ironer Hand Relationship Specialty Start Date End Date Geraldo Gracia DNP [address] [place] [id number] PCP - General Family Medicine 10/01/22 documented as of this encounter
--- OUTSIDE RECORDS SUMMARY | 2024-06-23 18:18 | XMS_ITS | Encounter Summary ---
[place] [address] Care Team Providers Care Temperature Control Inspector Name Role Phone Geraldo Gracia DNP Primary Care Provider Encounter Details Date Type Department Care Team (Latest Contact Info) Description 11/15/2023 7:38 AM EDT - 11/15/2023 11:59 PM EDT Hospital Encounter [place] [phone] CREST (calcinosis, Raynaud's phenomenon, esophageal dysfunction, sclerodactyly, telangiectasia); Undifferentiated connective tissue disease Discharge Disposition: Home Social History Tobacco Use Types Packs/Day Years Used Date Smoking Tobacco: Former Cigarettes Q uit: 1992 Smokeless Tobacco: Never Comments:In high school smok ed maybe a 0.5 of a cigarette daily Alcohol Use Standard Drinks/Week Comments Yes 0 (1 standard drink = 0.6 oz pur e alcohol) < once a month [facility] Inpatient Questions Answer Date Recorded Does Anyone [...] PM EDT documented as of this encounter Medications at Time of Discharge Medication Sig Dispensed Refills Start Date End Date hydrOXYchloroQUINE (Plaquenil) 200 mg tabletIndications:sys temic lupus erythematosus Take 1 tablet by mouth daily. Indications: systemic lupus erythematosus, an autoimmune disease 90 tablet 3 11/15/[address] (Cymbalta) [address] capsuleIndications:CR EST (calcinosis, Raynaud's phenomenon, esophageal dysfunction, sclerodactyly, telangiectasia),Undif ferentiated connective tissue disease,Other forms of systemic lupus erythematosus, unspecified organ involvement status Take 1 capsule by mouth daily. 90 tablet 3 11/15/2023 levothyroxine (Synthroid) 50 mcg Tablet Take 1 tablet by mouth daily. 60 tablet 10/21/2021 melatonin 3 mg Tablet Take 3 mg by mouth nightly. traZODone (Desyrel) 50 mg Tablet Take 25 mg by mouth nightly. magnesium 250 mg Tablet Take 500 mg by mouth nightly. amitriptyline (Elavil) 25 mg Tablet Take 12.5 mg by mouth nightly. 0 10/17/2015 Emgality Pen 120 mg/mL Pen Injector INJECT THE CONTENTS OF ONE PEN (120 MG) SUBCUTANEOUSLY ONCE EVERY 28 DAYS 1 mL 3 08/23/2023 12/06/2023 docusate sodium (Colace) 50 mg Capsule Take 50 mg by mouth as needed. 02/10/2024 documented as of this encounter Plan of Treatment Upcoming Encounters Date Type Department Care Team (Latest Contact Info) Description 06/30/2024 9:45 AM EST Hospital Encounter [place] [address] Flor Velasco MD [facility] [place] [address] 06/30/2024 9:45 AM EST - 06/30/2024 10:45 AM EST Surgery [place] [address] Flor Velasco MD [facility] [address] COLONOSCOPY, DIAGNOSTIC (WRVU 3.26) 07/27/2024 8:00 AM EST TH Visit (TeleHealth) Gastroenterology at [place] [phone] Unruly Ramirez MD [facility] [place] [address] 08/03/2024 3:00 PM EST Office Visit Neurology at [address] [phone] Melvin Ramírez MD [facility] [place] [address] 08/25/2024 1:45 PM EDT Office [place] [phone] Keven Church MD [facility] [address] Scheduled Procedures Name Priority Associated Diagnoses Date/Ti me COLONOSCOPY, DIAGNOSTIC (WRV U 3.26) Hematochezia 06/30/2024 9:45 AM EST documented as of this encounter Procedures Procedure Name Priority Date/Time Associated Diagnosis Comments COMMON PULMONARY FUNCTION TEST Routine 11/15/2023 8:04 AM EDT CREST (calcinosis, Raynaud's phenomenon, esophageal dysfunction, sclerodactyly, telangiectasia) Undifferentiated connective tissue disease documented in this encounter Results * Common Pulmonary Function Test (11/15/2023 8:04 AM EDT) FVC Actual Pre-BD 3.65 L COMPAS PFT FVC Pre-BD % of Predicted 113 % COMPAS PFT FVC Predicted 3.24 L COMPAS PFT FVC Lower Limits of Normal 2.54 L COMPAS PFT FVC Pre-BD Z-Score 0.93 COMPAS PFT FEV1 Actual Pre-BD 2.98 L COMPAS PFT FEV1 Pre-BD % of Predicted 114 % COMPAS PFT FEV1 Predicted 2.61 L COMPAS PFT FEV1 Lower Limits of Normal 2.04 L COMPAS PFT FEV1 Pre-BD Z-Score 1.1 COMPAS PFT FEV1 / FVC Actual Pre-BD 82 % COMPAS PFT FEV1/FVC Pre-BD Z-Score 0.16 COMPAS PFT UFI01-85 Actual Pre-BD 2.94 % COMPAS PFT RWO30-64 Predicted 2.64 % COMPAS PFT YKE24-81 Pre-BD % of Predicted 111 % COMPAS PFT CRO29-08 Pre-BD Z-Score 0.37 COMPAS PFT DLCO Hb Actual Pre-BD 17.32 mL/min/mmHg COMPAS PFT DLCO Hb Pre-BD % of Predicted 88 % COMPAS PFT DLCO Hb Predicted 19.71 mL/min/mmHg COMPAS PFT DLCO Hb Pre-BD Z-Score -0.87 COMPAS PFT DLCO [facility] ACT PRE-BD 17.53 mL/min/mmHg COMPAS PFT DLCO [facility] PRE-BD % of PRED 89 % COMPAS PFT DLCO [facility] Predicted 19.71 mL/min/mmHg COMPAS PFT DLCO [facility] PRE-BD Z-SCORE -0.79 COMPAS PFT Narrative COMPAS PFT - 11/15/2023 8:04 AM EDT FINDINGS: FEV1, FVC, and FEV1/VC are within normal limits. Diffusion capacity is normal. IMPRESSION: Normal spirometry. No diffusion impairment. Procedure Note Gavin Christopher MD - 11/16/2023 FINDINGS: FEV1, FVC, and FEV1/VC are within normal limits. Diffusioncapacity is normal. IMPRESSION: Normal spirometry. No diffusion impairment. Luis Bradley MD PFT ORDERABLES COMPAS PFT documented in this encounter Visit Diagnoses Diagnosis CREST (calcinosis, Raynaud's phenomenon, esophageal dysfunction, sclerodactyly, telangiectasia) Systemic sclerosis Undifferentiated connective tissue disease Unspecified diffuse connective tissue disease Hematochezia Blood in stool documented in this encounter Care Teams Temperature Control Inspector Relationship Specialty Start Date End Date Geraldo Gracia DNP [address] [place] [id number] PCP - General Family Medicine 10/01/22 documented as of this encounter
--- OUTSIDE RECORDS SUMMARY | 2024-06-23 18:18 | XMS_ITS | Encounter Summary ---
[place] [address] Care Team Providers Care Food Service Tray Attendant Name Role Phone Geraldo Gracia DNP Primary Care Provider Encounter Details Date Type Department Care Team (Latest Contact Info) Description 12/16/2023 Travel Social History Tobacco Use Types Packs/Day Years Used Date Smoking Tobacco: Former Cigarettes Q uit: 1992 Smokeless Tobacco: Never Comments:In high school smok ed maybe a 0.5 of a cigarette daily Alcohol Use Standard Drinks/Week Comments Yes 0 (1 standard drink = 0.6 oz pur e alcohol) < once a month [facility] Inpatient Questions Answer Date Recorded Does Anyone [...] 9:45 AM EST Hospital Encounter Gastroenterology at [place] [phone] Flor Velasco MD [facility] [place] [address] 06/30/2024 9:45 AM EST - 06/30/2024 10:45 AM EST Surgery Gastroenterology at [address] Flor Velasco MD [facility] [place] [address] COLONOSCOPY, DIAGNOSTIC (WRVU 3.26) 07/27/2024 8:00 AM EST TH Visit (TeleHealth) Gastroenterology at [place] [phone] Unruly Ramirez MD [facility] [place] [address] 08/03/2024 3:00 PM EST Office Visit Neurology at [address] [phone] Melvin Ramírez MD [facility] [place] [address] [place] [address] 08/25/2024 1:45 PM EDT Office Visit Rheumatology at [place] [phone] Keven Church MD [facility] [place] [address] Scheduled Procedures Name Priority Associated Diagnoses Date/Ti me COLONOSCOPY, DIAGNOSTIC (WRV U 3.26) Hematochezia 06/30/2024 9:45 AM EST documented as of this encounter Visit Diagnoses Not on filedocumented in this encounter Care Teams Food Service Tray Attendant Relationship Specialty Start Date End Date Geraldo Gracia DNP [address] [place] [address] [place] [address] PCP - General Family Medicine 10/01/22 documented as of this encounter
--- OUTSIDE RECORDS SUMMARY | 2024-06-23 18:18 | XMS_ITS | Encounter Summary ---
Author Organization [facility] [place] [address] Care Team Providers Care Electric Motor Repairer Name Role Phone Geraldo Gracia [facility] Primary Care Provider Reason for Visit * Auth/Cert (Routine) Specialty Diagnoses / Procedures Referred By Mikaela costa Referred To Contact Diagnoses Dysphagia, unspecified Encounter for screening for malignant neoplasm of colon Dysphagia (hx of CREST),screening (prior colonoscopy with poor prep) Procedures PRO UPPER GI ENDOSCOPY, DIAGNOSTIC PRO COLONOSCOPY, DIAGNOSTIC PRO UPPER GI ENDOSCOPY, BIOPSY PRO UP GI ENDOSCOPY, REMV TUMOR, SNARE PRO COLONOSCOPY, BIOPSY PRO COLONOSCOPY, REMV LESN, SNARE EGD, UPPER GI ENDOSCOPY (WRVU 2.09) COLONOSCOPY, DIAGNOSTIC (WRVU 3.26) Phong Khan MD [facility] [place] [address] [facility] Referral ID Status Reason Start Date Expiration Date Visits Re quested Visits Authorized [id number] 1 1 Encounter Details Date Type Department Care Team (Late st Contact Info) Description 07/02/2023 8:00 AM EST - 07/02/2023 9:00 AM EST Surgery [place] [address] Phong Khan MD [facility] [place] [address] EGD,WITH DILATION ESOPHAGUS WITH BALLOON,< 30 MM (WRVU 2.67) Social History Tobacco Use Types Packs/Day Years [...] Sign Reading Time Taken Comments Blood Pressure 103/54 07/02/2023 9:00 AM EST Pulse 97 07/02/2023 9:00 AM EST Temperature 36.4 ??C (97.5 ??F) 07/02/2023 7:09 AM ES T Respiratory Rate 12 07/02/2023 9:00 AM EST Oxygen Saturation 100% 07/02/2023 9:00 AM EST Inhaled Oxygen Concentration - - Weight - - Height - - Body Mass Index - - documented in this encounter Discharge Instructions * Discharge Instructions* Toni Patrick RN - 07/02/2023 9:13 AM EST Colonoscopy: What to Expect at Home Your Recovery Your doctor will talk to you about when you will need your next colonoscopy. Your doctor can help you decide how often you need to be checked. This will depend on the results of your test and your risk for colorectal cancer. After the test, you may be bloated or have gas pains. You may need to pass gas. If a biopsy was done or a polyp was removed, you may have streaks of blood in your stool (feces) for a few days. Problems such as heavy rectal bleeding may not occur until several weeks after the test. This isn't common. But it can happen after polyps are removed. This care sheet gives you a general idea about how long it will take for you to recover. But each person recovers at a different pace. Follow the steps below to get better as quickly as possible. How can you care for yourself at home? Activity Rest when you feel tired. You can do your normal activities when it feels okay to do so. Diet Follow your doctor's directions for eating. Unless your doctor has told you not to, drink plenty of fluids. This helps to replace the fluids that were lost during the colon prep. Do not drink alcohol. Medicines Your doctor will tell you if and when you can restart your medicines. He or she will also give you instructions about taking any new medicines. If you take blood thinners, such as warfarin (Coumadin), clopidogrel (Plavix), or aspirin, be sure to talk to your doctor. He or she will tell you if and when to start taking those medicines again. Make sure that you understand exactly what your doctor wants you to do. If polyps were removed or a biopsy was done during the test, your doctor may tell you not to take aspirin or other anti-inflammatory medicines for a few days. These include ibuprofen (Advil, Motrin) and naproxen (Aleve). Other instructions For your safety, do not drive or operate machinery until the medicine wears off and you can think clearly. Your doctor may tell you not to drive or operate machinery until the day after your test. Do not sign legal documents or make major decisions until the medicine wears off and you can think clearly. The anesthesia can make it hard for you to fully understand what you are agreeing to. Additional Information for Sedation Patients For patients who received sedation: You may have received medications before and/or during your procedure which effects your judgement and reaction time. Do not drive, operate machinery, drink alcoholic beverages or make important decisions for 24 hours. Be careful on stairs as you may be unsteady on your feet. You may eat a regular diet as tolerated. Do not smoke if you are alone. IV site: Slight redness or tenderness is normal, you can use a warm compress if you would like. If tenderness and/or redness increase or if foul drainage occurs, please contact your Doctor. Please call [phone] before 8pm Mon-Fri with problems, questions or concerns. If you call after 8pm or on weekends, call the Hospital at [phone] and ask to speak to the [employer] public relations officer and the recessing machine operator will contact that person for you. When should you call for help? Call 911 anytime you think you may need emergency care. For example, call if: You passed out (lost consciousness). You pass maroon or bloody stools. You have trouble breathing. Call your doctor now or seek immediate medical care if: You have pain that does not get better after you take pain medicine. You are sick to your stomach or cannot drink fluids. You have new or worse belly pain. You have blood in your stools. You have a fever. You cannot pass stools or gas. Watch closely for changes in your health, and be sure to contact your doctor if you have any problems. Where can you learn more? [facility] View your After Visit Summary and more online at [email or web address] If you would like to provide feedback about your hospital experience, please call the Office of Patient and Family Relations at . If you have received this After Visit Summary in error, please immediately return it in person to the department, or notify the [facility] Privacy Office by calling toll free at between the hours of 8AM and 5PM to arrange for our retrieval of the documents at no cost to you. Content Version: 12.2 ?? 2762-0618 [employer]. Care instructions adapted under license by [facility]. If you have questions about a medical condition or this instruction, always ask your healthcare professional. [employer] disclaims any warranty or liability for your use of this information. documented in this encounter Medications at Time of Discharge Medication Sig Dispensed Refills Start Date End Date levothyroxine (Synthroid) 50 mcg Tablet Take 1 tablet by mouth daily. 60 tablet 10/21/2021 melatonin 3 mg Tablet Take 3 mg by mouth nightly. traZODone (Desyrel) 50 mg Tablet Take 25 mg by mouth nightly. magnesium 250 mg Tablet Take 500 mg by mouth nightly. amitriptyline (Elavil) 25 mg Tablet Take 12.5 mg by mouth nightly. 0 10/17/2015 azaTHIOprine (Imuran) 50 mg tablet Take 1 tablet by mouth daily. 60 tablet 1 05/21/2023 11/15/2023 hydroxychloroquine (Plaquenil) 200 mg tabletIndications:sys temic lupus erythematosus Take 1 tablet by mouth daily. Indications: systemic lupus erythematosus, an autoimmune disease 90 tablet 3 04/16/2023 11/15/[address] (Cymbalta) [address] capsuleIndications:CR EST (calcinosis, Raynaud's phenomenon, esophageal dysfunction, sclerodactyly, telangiectasia),Undif ferentiated connective tissue disease,Other forms of systemic lupus erythematosus, unspecified organ involvement status Take 1 capsule by mouth daily. 90 tablet 3 04/16/2023 11/15/2023 Emgality Pen 120 mg/mL Pen Injector INJECT THE CONTENTS OF ONE PEN (120 MG) SUBCUTANEOUSLY ONCE EVERY 28 DAYS 1 mL 5 02/17/2023 07/26/2023 docusate sodium (Colace) 50 mg Capsule Take 50 mg by mouth as needed. 02/10/2024 multivitamin (THERAGRAN) Tablet Take 1 tablet by mouth daily. 11/15/2023 documented as of this encounter H&P Notes * Phong Khan MD - 07/02/2023 7:47 AM EST Patient Name: Karolina Olivas Patient Age: 48 y.o. Birthdate: 1975 Admit date: 07/02/2023 Attending Physician: Phong Khan MD Gastroenterology & Hepatology Pre-Procedure History and Physical Planned Procedure: EGD: Colonoscopy: Indication: dysphagia, screening Patient Active Problem List Diagnosis Code Constipation K59.00 Diarrhea R19.7 Medications: Reviewed in EDH Allergies Allergen Reactions Gluten Nausea And Vomiting, Rash and Other (See Comments) Also stomach aches very bad Codeine Phosphate CIS - Nausea/Vomiting Doxycycline Monohydrate CIS - HANDS GET NUMB Social History/Family History: Reviewed in EDH. No changes Exam: Patient Vitals for the past 24 hrs: Temp Pulse Resp BP SpO2 O2 Device 07/02/23 0709 36.4 ??C (97.5 ??F) 91 18 98/58 100 % RA GEN: NAD, AAOX3 HEENT: NC/AT dryMM, anicteric Chest: CTAB Heart: RRR, nl s1, s2 Abdomen: normal bowel sounds, soft, non tender Assessment and Plan: Proceed with EGD: Colonoscopy: ASA Grade: ASA 2 - Patient with mild systemic disease with no functional limitations Mallampati: II (soft palate, uvula, fauces visible) Sedation plan: IV Conscious Sedation Risks and benefits of the procedure were discussed with the patient. Risks discussed including bleeding, infection, reaction to anesthesia, perforation or other intraabdominal trauma, pancreatitis (if applicable), missing a cancer (if applicable) and/or other unforseen complication. Informed Consent signed by patient (or quality control representative). documented in this encounter Plan of Treatment Upcoming Encounters Date Type Department Care Team (Latest Contact Info) Description 06/30/2024 9:45 AM EST Hospital Encounter [place] [address] Flor Velasco MD [facility] [place] [address] 06/30/2024 9:45 AM EST - 06/30/2024 10:45 AM EST Surgery [place] [address] Flor Velasco MD [facility] [place] [address] COLONOSCOPY, DIAGNOSTIC (WRVU 3.26) 07/27/2024 8:00 AM EST TH Visit (TeleHealth) [place] [address] Unruly Ramirez MD [facility] [place] [address] 08/03/2024 3:00 PM EST Office Visit Neurology at [facility] [address] [place] [address] Melvin Ramírez MD [facility] [place] [address] 08/25/2024 1:45 PM EDT Office [place] [address] Keven Church MD [facility] [place] [address] Scheduled Procedures Name Priority Associated Diagnoses Date/Ti me COLONOSCOPY, DIAGNOSTIC (WRV U 3.26) Hematochezia 06/30/2024 9:45 AM EST documented as of this encounter Procedures Procedure Name Priority Date/Time Associated Diagnosis Comments SURGICAL PATHOLOGY REPORT Routine 07/02/2023 9:04 AM EST SPECIMEN TO PATHOLOGY Routine 07/02/2023 9:04 AM EST SPECIMEN TO PATHOLOGY Routine 07/02/2023 9:04 AM EST SPECIMEN TO PATHOLOGY Routine 07/02/2023 9:04 AM EST Upper Gi Endoscopy, Biopsy ([id number]) 07/02/2023 8:15 AM EST Dysphagia, unspecified type Colonoscopy, Biopsy ([id number]) 07/02/2023 8:15 AM EST Dysphagia, unspecified type Up Gi Endoscopy, Ball Dil, 30Mm ([id number]) 07/02/2023 8:15 AM EST Dysphagia, unspecified type UPPER GI ENDOSCOPY Routine 07/02/2023 8: 05 AM EST COLONOSCOPY Routine 07/02/2023 8:04 AM EST documented in this encounter Results * Surgical Pathology Report (07/02/2023 9:04 AM EST) Final Diagnosis [id number] ? Location: 4T; EA08; A The signing pathologist has (i) examined the relevant preparation(s) for the specimen(s) and (ii) rendered or confirmed the diagnosis(es). . ?Surgical Pathology DIAGNOSIS A - Distal esophagus, biopsy (Multiple): - ??Esophageal squamous mucosa with mild chronic ?? inflammation, non-specific . B - Proximal esophagus, biopsy (Multiple): - ??Esophageal squamous mucosa, within normal limits. - Superficial fragments of columnar epithelium, negative for ? intestinal metaplasia . C - Right colon ? 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 CR-PX Electronically signed by: ?Dianne WADE PhD, Jeannine Verified: ??07/14/2023 13:16 ??Pathologist Performed at: ??-[facility], [place] [address] Pipe Threading Machine Operator: Yesi Liu MD, FCAP, ??CLIA Certificate: [id number] SPECIMEN(S) SUBMITTED A - distal esophagus, biopsy (Multiple) B - proximal esophagus, biopsy (Multiple) C - right colon ? melanosis, biopsy (Multiple) CLINICAL INFORMATION 48-year-old female with dysphagia and screening for diarrhea, congested and right colon seen on exam SPECIMEN PROCESSING A - Labeled/Fixativ e: Distal esophagus, formalin. Quantity/Size: Two, 0.4 and 1.0 cm. Tissue Description: Soft, pink-white tissues. Sections/Proces sing: Submitted in toto ??in 1 cassette labeled A1. B - Labeled/Fixativ e: Proximal esophagus, formalin. Quantity/Size: Two, averaging 0.4 cm. Tissue Description: Soft, white tissues. Sections/Proces sing: Submitted in toto ??in 1 cassette labeled B1. C - Labeled/Fixativ e: Right colon, question melanosis, formalin. Quantity/Size: Three, averaging 0.4 cm. Tissue Description: Soft, pink-red tissues. Sections/Proces sing: Submitted in toto ??in 1 cassette labeled C1. ??sns 07/14/2023 1:16 PM EST [facility] GI Biopsy 07/02/2023 9:04 AM EST 07/02/2023 9:04 AM EST GI Biopsy 07/02/2023 9:04 AM EST 07/02/2023 9:04 AM EST GI Biopsy 07/02/2023 9:04 AM EST 07/02/2023 9:04 AM EST Phong Khan MD PATHOLOGY/CYTOLOG Y ORDERABLES [place], [place] [id number] [place] [address] [place] [address] * Specimen to Pathology (07/02/2023 9:04 AM EST) AP Specimen 07/02/2023 9:04 AM EST 07/02/2023 9:04 AM EST Narrative [facility] - 07/02/2023 9:04 AM EST Specimen requisition ordered. ??Separate Pathology report to follow Phong Khan MD PATHOLOGY/CYTOLOG Y ORDERABLES [facility] [place] [address] * Specimen to Pathology (07/02/2023 9:04 AM EST) AP Specimen 07/02/2023 9:04 AM EST 07/02/2023 9:04 AM EST Narrative [facility] - 07/02/2023 9:04 AM EST Specimen requisition ordered. ??Separate Pathology report to follow Phong Khan MD PATHOLOGY/CYTOLOG Y ORDERABLES [facility] [place] [address] * Specimen to Pathology (07/02/2023 9:04 AM EST) AP Specimen 07/02/2023 9:04 AM EST 07/02/2023 9:04 AM EST Narrative [facility] - 07/02/2023 9:04 AM EST Specimen requisition ordered. ??Separate Pathology report to follow Phong Khan MD PATHOLOGY/CYTOLOG Y ORDERABLES [facility] [place] [address] * UPPER GI ENDOSCOPY (07/02/2023 8:05 AM EST) UPPER GI ENDOSCOPY [facility] Endoscopy ___ Procedure Date: 07/02/2023 8:05 AM ? Patient Name: Karolina Olivas ? Date of : 1975 ? Age: 48 ? Order #: [id number] ? Instrument Name: [id number] ? ___ Procedure: ? Upper GI endoscopy Indications: ? Dysphagia Patient Profile: ? This is a 48 year old female with ? 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 Providers: ? Phong Khan MD, Klaudia ? Kirit Buckner Referring : ?Geraldo Gracia Requesting Provider: ?? Herlinda Hillman Medicines: ? Midazolam 5 mg IV, Fentanyl 150 ? micrograms IV, Benzocaine spray Complications: ? No immediate complications. ___ Procedure: ? Pre-Anesthesia Assessment: ? - Prior [...] cancer, and adverse medication ? reactions. The Endoscope was ? introduced through the mouth, and ? advanced to the third part of ? duodenum The upper GI endoscopy was ? accomplished without difficulty. ? The patient tolerated the procedure ? well. ? Findings: ? The examined esophagus was normal. Biopsies were ? obtained from the proximal and distal esophagus with ? cold forceps for histology of suspected eosinophilic ? esophagitis. ? No endoscopic abnormality was evident in the ? esophagus to explain the patient's complaint of ? dysphagia. It was decided, however, to proceed with ? dilation at the lower esophageal sphincter and at the ? gastroesophageal junction. A TTS dilator was passed ? through the scope. Dilation with an 18-19-20 mm x 8 ? cm CRE balloon dilator was performed to 20 mm. The ? dilation site was examined and showed no change. ? The Z-line was regular and was found 38 cm from the ? incisors. ? The stomach was normal. ? The examined duodenum was normal. ? Moderate Sedation: ? Moderate (conscious) sedation was administered by the ? nurse and supervised by the endoscopist. The ? patient's oxygen saturation, heart rate, blood ? pressure and response to care were monitored. ? I was present during the intraservice time as ? documented by the sedation RN. Impression: ?- Normal esophagus. ? - No endoscopic esophageal ? abnormality to explain patient's ? dysphagia. Esophagus dilated. ? Dilated. ? - Biopsies were taken with a cold ? forceps for evaluation of ? eosinophilic esophagitis. ? - Z-line regular, 38 cm from the ? incisors. ? - Normal stomach. ? - Normal examined duodenum. Recommendation: ?- Await pathology results. ? - Proceed with Colonoscopy. ? Attending Participation: ? I personally performed the entire procedure. ? I was present and participated during the entire ? procedure, including non-ashraf portions. ? Dr. Deon Khan __ Phong Khan MD 07/02/2023 9:07:44 AM Number of Addenda: 0 Note Initiated On: 07/02/2023 8:05 AM PROVATION 07/02/2023 8:05 AM EST Geraldo Gracia DNP GENERAL SURGICAL OR DERABLES PROVATION * COLONOSCOPY (07/02/2023 8:04 AM EST) COLONOSCOPY [facility] Endoscopy Procedure Date: 07/02/2023 8:04 AM ? Patient Name: Karolina Olivas ? Date of : 1975 ? Age: 48 ? Order #: [id number] ? Instrument Name: [id number] ? Procedure: ? Colonoscopy Indications: ? Screening [...] preparation was evaluated ? using the BBPS ([place] Bowel ? Preparation Scale) with scores of: [...] Gracia DNP GENERAL SURGICAL OR DERABLES PROVATION documented in this encounter Visit Diagnoses Diagnosis Dysphagia, unspecified type Hematochezia Blood in stool documented in this encounter Administered Medications Inactive Administered Medications - up to 3 most recent administrations Medication Order MAR Action Action Date Dose Rate Site benzocaine (Hurricane One) 20% spray (restricted to rashad-procedural use) PRN, Starting on Wed07/02/23 at 0816, Until Wed07/02/23 at 1154, Intra-Operative (Intra-Procedure) Given 07/02/2023 8:16 AM EST 1 spray fentaNYL (pf) (50 mcg/mL) multi-dose injection PRN, Starting on Wed07/02/23 at 0816, Until Wed07/02/23 at 1154, Intra-Operative (Intra-Procedure), Routine Given 07/02/2023 8:48 AM EST 25 mcg Given 07/02/2023 8:35 AM EST 25 mcg Given 07/02/2023 8:22 AM EST 50 mcg lactated ringers infusion 100 mL/hr, Intravenous, CONTINUOUS, Starting on Wed07/02/23 at 0730, Until Wed07/02/23 at 0944, Endoscopy (Day of Procedure) New Bag 07/02/2023 7:22 AM EST 100 mL/hr 100 mL/hr midazolam (pf) (Versed) (1 mg/mL) multi-dose injection PRN, Starting on Wed07/02/23 at 0816, Until Wed07/02/23 at 1154, Intra-Operative (Intra-Procedure), Routine Given 07/02/2023 8:48 AM EST 0.5 mg Given 07/02/2023 8:43 AM EST 0.5 mg Given 07/02/2023 8:34 AM EST 1 mg documented in this encounter Active and Recently Administered Medications Times are shown in EST. Continuous Medication Order 06/30/2023 07/01/2023 07/02/2023 lactated ringers infusion (CANCELED) 100 mL/hr, Intravenous, CONTINUOUS, Starting on Wed07/02/23 at 0730, Until Wed07/02/23 at 0944, Endoscopy (Day of Procedure) 0722 (New Bag - Prov ider: Brenda Christian RN) PRN Medication Order 06/30/2023 07/01/2023 07/02/2023 benzocaine (Hurricane One) 20% spray (restricted to rashad-procedural use) (CANCELED) PRN, Starting on Wed07/02/23 at 0816, Until Wed07/02/23 at 1154, Intra-Operative (Intra-Procedure) 0816 (Given - Provid er: Klaudia Buckner RN) fentaNYL (pf) (50 mcg/mL) multi-dose injection (CANCELED) PRN, Starting on Wed07/02/23 at 0816, Until Wed07/02/23 at 1154, Intra-Operative (Intra-Procedure), Routine 0816 (Given - Provid er: Klaudia Buckner RN)0818 (Given - Provider: Klaudia Buckner RN)0822 (Given - Provider: Klaudia Buckner RN)0835 (Given - Provider: Klaudia Buckner RN)0848 (Given - Provider: Klaudia Buckner RN) midazolam (pf) (Versed) (1 mg/mL) multi-dose injection (CANCELED) PRN, Starting on Wed07/02/23 at 0816, Until Wed07/02/23 at 1154, Intra-Operative (Intra-Procedure), Routine 0816 (Given - Provid er: Klaudia Buckner RN)0819 (Given - Provider: Klaudia Buckner RN)0822 (Given - Provider: Klaudia Buckner RN)0831 (Given - Provider: Klaudia Buckner RN)0834 (Given - Provider: Klaudia Buckner RN)0843 (Given - Provider: Klaudia Buckner RN)0848 (Given - Provider: Klaudia Buckner RN) documented in this encounter Care Teams Electric Motor Repairer Relationship Specialty Start Date End Date Geraldo Gracia DNP [address] [place] [address] PCP - General Family Medicine 10/01/22 documented as of this encounter
--- OUTSIDE RECORDS SUMMARY | 2024-06-23 18:18 | XMS_ITS | Encounter Summary ---
[place] [address] Care Team Providers Care Retail Account Manager Name Role Phone Geraldo Gracia DNP Primary Care Provider [phone] Encounter Details Date Type Department Care Team (Latest Contact Info) Description 02/10/2024 Travel Social History Tobacco Use Types Packs/Day Years Used Date Smoking Tobacco: Former Cigarettes Q uit: 1992 Smokeless Tobacco: Never Comments:In high school smok ed maybe a 0.5 of a cigarette daily Alcohol Use Standard Drinks/Week Comments Yes 0 (1 standard drink = 0.6 oz pur e alcohol) < once a month [facility] Inpatient Questions Answer Date Recorded Does [...] 9:45 AM EST Hospital Encounter Gastroenterology at [place] [phone] Flor Velasco MD [facility] [place] [address] 06/30/2024 9:45 AM EST - 06/30/2024 10:45 AM EST Surgery Gastroenterology at [address] Flor Velasco MD [facility] [place] [address] COLONOSCOPY, DIAGNOSTIC (WRVU 3.26) 07/27/2024 8:00 AM EST TH Visit (TeleHealth) Gastroenterology at [place] [phone] Unruly Ramirez MD [facility] [place] [address] 08/03/2024 3:00 PM EST Office Visit Neurology at [address] [phone] Melvin Ramírez MD [facility] [address] [place] [address] 08/25/2024 1:45 PM EDT Office Visit Rheumatology at [place] [phone] Keven Church MD [facility] [place] [address] Scheduled Procedures Name Priority Associated Diagnoses Date/Ti me COLONOSCOPY, DIAGNOSTIC (WRV U 3.26) Hematochezia 06/30/2024 9:45 AM EST documented as of this encounter Visit Diagnoses Not on filedocumented in this encounter Care Teams Retail Account Manager Relationship Specialty Start Date End Date Geraldo Gracia DNP [address] [place] [address] [place] [address] PCP - General Family Medicine 10/01/22 documented as of this encounter
--- OUTSIDE RECORDS SUMMARY | 2024-06-23 18:18 | XMS_ITS | Encounter Summary ---
[place] [address] Care Team Providers Care Flume Tender Name Role Phone Geraldo Gracia DNP Primary Care Provider Encounter Details Date Type Department Care Team (Latest Contact Info) Description 07/27/2023 Travel Social History Tobacco Use Types Packs/Day Years Used Date Smoking Tobacco: Former Cigarettes Q uit: 1992 Smokeless Tobacco: Never Comments:In high school smok ed maybe a 0.5 of a cigarette daily Alcohol Use Standard Drinks/Week Comments Yes 0 (1 standard drink = 0.6 oz pur e alcohol) < once a month [facility] Inpatient Questions Answer Date Recorded [...] 9:45 AM EST Hospital Encounter Gastroenterology at [place] [phone] Flor Velasco MD [facility] [place] [address] 06/30/2024 9:45 AM EST - 06/30/2024 10:45 AM EST Surgery Gastroenterology at [address] Flor Velasco MD [facility] [place] [address] COLONOSCOPY, DIAGNOSTIC (WRVU 3.26) 07/27/2024 8:00 AM EST TH Visit (TeleHealth) Gastroenterology at [place] [phone] Unruly Ramirez MD [facility] [place] [address] 08/03/2024 3:00 PM EST Office Visit Neurology at [address] [phone] Melvin Ramírez MD [facility] [address] [place] [address] 08/25/2024 1:45 PM EDT Office Visit Rheumatology at [place] [phone] Keven Church MD [facility] [place] [address] Scheduled Procedures Name Priority Associated Diagnoses Date/Ti me COLONOSCOPY, DIAGNOSTIC (WRV U 3.26) Hematochezia 06/30/2024 9:45 AM EST documented as of this encounter Visit Diagnoses Not on filedocumented in this encounter Care Teams Flume Tender Relationship Specialty Start Date End Date Geraldo Gracia DNP [address] [place] [address] [place] [address] PCP - General Family Medicine 10/01/22 documented as of this encounter
--- OUTSIDE RECORDS SUMMARY | 2024-06-23 18:18 | XMS_ITS | Encounter Summary ---
Author Organization [facility] [place] [address] Care Team Providers Care Benzene Worker Name Role Phone Geraldo Gracia DNP Primary Care Provider Encounter Details Date Type Department Care Team (Late st Contact Info) Description 03/27/2024 10:30 AM EDT Office [place] [address] Luis Bradley MD [facility] [place] [address] Keven Church MD [facility] [place] [address] Other forms of systemic lupus erythematosus, unspecified organ involvement status Social History Tobacco Use Types Packs/Day Years Used Date Smoking Tobacco: Former Cigarettes Q uit: 1992 Smokeless Tobacco: Never Comments:In high school smok ed maybe a 0.5 of a cigarette daily Alcohol Use Standard Drinks/Week Comments Yes 0 (1 standard drink = 0.6 oz pur e alcohol) < once a month [facility] Inpatient Questions Answer Date Recorded Does [...] Sign Reading Time Taken Comments Blood Pressure 97/58 03/27/2024 10:24 AM EDT Pulse 85 03/27/2024 10:24 AM EDT Temperature 36.6 ??C (97.8 ??F) 03/27/2024 10:24 AM E DT Respiratory Rate 18 03/27/2024 10:24 AM EDT Oxygen Saturation 100% 03/27/2024 10:24 AM EDT Inhaled Oxygen Concentration - - Weight 48.1 kg (106 lb) 03/27/2024 10:24 AM EDT Height 157.5 cm (5' 2) 03/27/2024 10:24 AM EDT Body Mass Index 19.39 03/27/2024 10:24 AM EDT documented in this encounter Patient Instructions * Attachments The following attachments cannot be sent through Care Everywhere. * Scleroderma (Bahamian) documented in this encounter Progress Notes * Keven Church MD - 03/27/2024 10:30 AM EDT Rheumatology Outpatient Follow Up Note PCP: NANNETTE Justin Brendon is a 48 y.o. 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 - fatigue, arthralgias (mostly in left knee, ankle, right wrist, and back) worse with activity - slight erythematous rash on nose and tops of cheeks, comes/goes, usually in the morning, sometimes -> appeared to be roseaca in nature - questionable photosensitivity, episode 2 years ago of having painful spots with swelling after wearing shorts, in the sun for 20 minute, lasted for one week, given cream for improvement - [place] [facility] [place] speckled and cytoplasmic, COLBY negative, dsDNA negative, anti-mitochondrial negative, +anti-smooth muscle 1:160, C3 mildly low 86-88, normal C4, TPO 982, TTG negative, APS ab negative - 09/2020 episode of Raynaud's, initiated HCQ - 12/2020 worsening photosensitivity with fatigue, arthralgias, rash from sun - 07/2021 nail caps few dilated loops right hand -08/2021: continued arthralgias, ARNULFO 1:320, centromere pattern, COLBY panel negative, C3 mildly low at83.. Anti-centromere antibody is mildly elevated at 2.5. Trial of Nifedipine 30mg HS - Meets criteria for SLE with + ARNULFO, + history of cutanious manifestations, +low complement - freatures of CREST positive centromere antibody, 2.5, raynaud's, Gi dysmotility .- consistent with CREST/SLE overlap. - TTE: 11/03/2021: Normal echo, Normal RV systolic pressure - CT chest: 11/03/21: Mild apical scaring - PFTs: Normal PFTs. 10/2022 - Currently on Plaquenil 200mg daily - 06/22: increasing Joint pain/stiffness, started Cellcept 1000 mg BID (no MTX due to fibrosis), 02/20: initially had good response on Cellcept, recommend switch to AZA, awaiting labs 05/22 started aza 50mg daily - pt d/c due to concern of immunosupession. 09/21: Trailed Mobic 10/21 echo: Normal. est RVSP 19 mmHg -PFTs 11/21: Within normal limits Vaccine: 1 covid vaccine, declines other vaccines. Eye exam 08/2022: normal Interval History: -Doing okay with persistent stiffness in her hands, elbows in the same extent compared to October. Shecontinues to take Plaquenil 200 mg daily with duloxetine 30 mg daily which has been helping but seems to plateau and reached its maximum effect. Sometimes use Tylenol or ibuprofen but only as needed. -Her main concern is severe constipation for which she is seeing GI who determined that this is likely related to the motility problem. She was started on prucalopride and was advised to take it with2 laxatives. No improvement after 2 months. The last resort would be colectomy. - No chest pain or shortness of breath. No pleurisy She had an echo this year showing no more effusion in September. Her PFT this year is normal. - She plans to try alternative food modification for inflammatory diseases. She has autoimmune hepatitis and thyroiditis and celiac. And is very careful about her food. Her weight has been stable. Nofever/infections. No digital ulcers. Raynaud's seems to get worse this time but tolerable. 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 No heartburn. No new skin rash or tightening of skin. Meds and Allergies: Reviewed in eDH Physical exam: BP 97/58 (BP Location (NBP): Right arm, Patient Position: Sitting) Pulse 85 Temp 36.6 ??C (97.8??F) Resp 18 Ht 157.5 cm (5' 2) Wt 48.1 kg (106 lb) SpO2 100% BMI 19.39 kg/m?? Vitals: Last value 24hr range T 36.6 ??C (97.8 ??F) Temp: [36.6 ??C (97.8 ??F)] HR 85 Heart Rate: [85] BP 97/58 BP: (97)/(58) RR 18 Resp: [18] SpO2 100 % SpO2: [100 %] Physical Exam: General: Well appearing, NAD HEENT: Moist mucosae, no oral ulcers, no hair loss, no cervical lymphadenopathy, no parotid gland enlargement, nose not saddle, no limited mouth opening, Cardiovascular: RRR, no m/r/g Lungs: CTA b/l no w/r/r Abdomen: Soft, NTND Back: Nontender over the spine and SI joints Neuro: Alert and oriented x3. Strength 5/5 throughout, Sensation to light touch is grossly normal throughout. Skin: no rashes, no thickening, lower lip telangiectasia, no digital ulcer, no tophi, no EN, no livedo reticularis Nails: no nail pitting, no distal onycholysis, no splinter hemorrhages, no oil drops Nailfold capillaroscopy: capillary dilation on R3 digit, no hemorrhages Extremities: no edema Neck: Supple, full range of motion Shoulders: non-tender to palpation, no swelling, no synovitis Elbows: non-tender to palpation, no swelling/effusion, no synovitis Wrists: non-tender to palpation, no swelling/effusion, no synovitis Hands: No synovitis or abnormal bony hypertrophy, no MCP compression tenderness, full claw and fist Hips: non-tender to palpation, no swelling, no synovitis Knees: non-tender to palpation, no swelling/effusion, no synovitis Ankles: non-tender to palpation, no swelling/effusion, no synovitis Feet: no MTP compression tenderness Labs/Studies: Reviewed. Assessment/Plan: 48 y.o. 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 Patient with Raynaud's, arthralgias, fatigue, photosensitive rash and pericardial effusion with positive ARNULFO 1:320, speckled pattern suggestive of SLE picture. Her teleangiectasia and GI motility problem sclerodactyly and abnormal nailfold's with the +centromere antibody on the repeat test are consistent with CREST. 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 On exam there is no synovitis. She was started on Plaquenil without much improvement in her arthralgias. We discussed that there are not many choices from our standpoint to help with the motility. She should continue to follow GI. We will ask Dr. Rockwell to see if there is any other options to try. In terms of lupus, in the past she has tried CellCept with good response but did not stay on mediation because as she fears of the infection risk . She never tried azathioprine because of the same reason. She is unable to try methotrexate due to liver fibrosis. Her inflammatory markers are normal but her complements remain low.suggestive that her lupus is still active. At this point, we would recommend her to start Benlysta for lupus. Her pre biologics were tested and negative. Plan - Start Benlysta. - lupus monitoring labs: CBC CMP ESR CRP UA dsDNA C3, C4 - Continue Plaquenil 200 mg daily. Annual eye check. Last in Dec 2023 unremarkable. - Continue duloxetine 30 mg daily - Follow-up 3 months Patient was discussed with Dr.Kerin Keven Church MD Rheumatology Fellow Pager: [phone] * Luis Bradley MD - 03/27/2024 10:30 AM EDT The patient's history was reviewed, and I interviewed and examined the patient with Dr. Church, the rheumatology fellow. History of present illness and diagnosis discussed. Chief complaint andreview of systems reviewed. Physical exam findings, serologic testing, and diagnostic imaging reviewed. I agree with his summary, findings, diagnostic and therapeutic plans. This patient is well-known to me from previous supervision. Main issues at this time include symptomatic inflammatory arthritis and poor lower GI motility. Recommend initiating treatment with belimumab for lupus manifestations of her overlap condition. GI motility issues are more problematic. Currently enrolled in gastroenterology. Will review her situation with Dr. Rockwell to see if there are any other suggestions we may make to improve her GI status. Luis Bradley MD Staff Home Teaching Grades 9 Thru 12 Teacher documented in this encounter Plan of Treatment Upcoming Encounters Date Type Department Care Team (Latest Contact Info) Description 06/30/2024 9:45 AM EST Hospital Encounter [place] [address] Flor Velasco MD [facility] [place] [address] 06/30/2024 9:45 AM EST - 06/30/2024 10:45 AM EST [place] [address] Flor Velasco MD [facility] [place] [address] COLONOSCOPY, DIAGNOSTIC (WRVU 3.26) 07/27/2024 8:00 AM EST TH Visit (TeleHealth) [place] [phone] Unruly Ramirez MD [facility] [place] [address] 08/03/2024 3:00 PM EST Office Visit Neurology at [address] [phone] Melvin Ramírez MD [facility] [place] [address] 08/25/2024 1:45 PM EDT Office [place] [phone] Keven Church MD [facility] [place] [address] Scheduled Procedures Name Priority Associated Diagnoses Date/Ti me COLONOSCOPY, DIAGNOSTIC (WRV U 3.26) Hematochezia 06/30/2024 9:45 AM EST documented as of this encounter Results * dsDNA Antibody (03/27/2024 12:01 PM EDT) dsDNA Ab 0.9 <=15.0 IU/mL 03/28/2024 12:[address] [facility] Blood VENOUS BLOOD SPECIMEN / Unknown Venipuncture / Unknown 03/27/2024 12:01 PM EDT 03/27/2024 12:01 PM EDT [facility] - 03/28/2024 12:44 PM EDT Reference Range: <10 - Negative 10-15 - Equivocal >15 - Positive This dsDNA antibody result was generated using a fluoroenzyme immunoassay on the Suda 250 analyzer. This quantitative test is designed to detect IgG antibodies directed against double stranded DNA in human serum. The presence of antibodies that recognize dsDNA is a highly specific marker for systemic lupus erythematosus. Luis Bradley MD IMMUNOLOGY ORDERABLE S Performing Organization Address City/[facility]/ZIP Co de Phone Number [facility] [place] [address] * Protein/Creatinine Ratio, urine (03/27/2024 12:01 PM EDT) Protein, Urine 8 0 - 12 mg/dL 03/27/2024 1:[address] [facility] Creatinine, Urine 82 mg/dL 03/27/2024 1:[address] [facility] Protein / Creatinine Ratio, Urine 0.1 ratio 03/27/2024 1:[address] [facility] Urine URINE SPECIMEN / Unknown Non Blood Collection / Unknown 03/27/2024 12:01 PM EDT 03/27/2024 12:01 PM EDT Luis Bradley MD URINE ORDERABLES Performing Organization Address [facility]/ZIP Co de Phone Number [facility] [place] [address] * Sedimentation rate (03/27/2024 12:01 PM EDT) Sedimentation Rate Automated 3 2 - 37 mm/hr 03/27/2024 1:[address] [facility] Blood VENOUS BLOOD SPECIMEN / Unknown Venipuncture / Unknown 03/27/2024 12:01 PM EDT 03/27/2024 12:01 PM EDT Luis Bradley MD HEMATOLOGY ORDERABLE S Performing Organization Address City/[facility]/ZIP Co de Phone Number [facility] [place] [address] * CRP, acute inflammation (03/27/2024 12:01 PM EDT) C-Reactive Protein <3.0 <=4.9 mg/L 03/27/2024 1:[address] [facility] Blood VENOUS BLOOD SPECIMEN / Unknown Venipuncture / Unknown 03/27/2024 12:01 PM EDT 03/27/2024 12:01 PM EDT Luis Bradley MD CHEMISTRY ORDERABLES [facility] [place] [address] * (ABNORMAL) CBC (with Diff) (03/27/2024 12:01 PM EDT) White Blood Cell 5.81 4.00 - 9.50 x10(3)/mc L 03/27/2024 2:[address] [facility] Red Blood Cell 4.26 4.00 - 5.21 x10(6)/mc L 03/27/2024 2:[address] [facility] Hemoglobin 13.7 11.7 - 15.5 g/dL 03/27/2024 2:[address] [facility] Hematocrit 40.9 35.7 - 45.8 % 03/27/2024 2:[address] [facility] Mean Cell Volume 96.0(H) 82.6 - 94.4 fL 03/27/2024 2:[address] [facility] Mean Cell Hemoglobin 32.2(H) 27.1 - 32.0 pg 03/27/2024 2:[address] [facility] Mean Cell Hemoglobin Concentration 33.5 31.7 - 35.0 g/dL 03/27/2024 2:[address] [facility] Platelet 270 145 - 357 x10(3)/mc L 03/27/2024 2:[address] [facility] Mean Platelet Volume 10.3 7.6 - 12.9 fL 03/27/2024 2:[address] [facility] RDW Standard Deviation 41.9 37.0 - 46.0 fL 03/27/2024 2:[address] [facility] RDW coefficient of variation 12.0 11.5 - 14.1 % 03/27/2024 2:03 PM [facility] NRBC% auto 0.0 % 03/27/2024 2:03 PM [facility] NRBC Absolute <0.01 <0.01 x10(3)/mc L 03/27/2024 2:03 PM [facility] Neutrophil % 68.0 % 03/27/2024 2:03 PM [facility] Neutrophil Absolute (ANC) - Automated 3.95 1.70 - 6.10 x10(3)/mc L 03/27/2024 2:03 PM [facility] Lymph % 16.9 % 03/27/2024 2:03 PM [facility] Lymph Absolute 0.98 0.90 - 3.20 x10(3)/mc L 03/27/2024 2:03 PM [facility] Monocyte % 9.1 % 03/27/2024 2:03 PM [facility] Monocyte Absolute 0.53 0.30 - 0.90 x10(3)/mc L 03/27/2024 2:03 PM [facility] Eos % 4.3 % 03/27/2024 2:03 PM [facility] Eos Absolute 0.25 0.00 - 0.40 x10(3)/mc L 03/27/2024 2:03 PM [facility] Basophil % 1.5 % 03/27/2024 2:03 PM [facility] Baso Absolute 0.09 0.00 - 0.10 x10(3)/mc L 03/27/2024 2:03 PM [facility] Immature Gran % 0.2 % 2:03 PM [facility] Immature Gran Absolute <0.04 0.00 - 0.04 x10(3)/mc L 03/27/2024 2:03 PM [facility] Blood VENOUS BLOOD SPECIMEN / Unknown Venipuncture / Unknown 03/27/2024 12:01 PM EDT 03/27/2024 12:01 PM EDT Luis Bradley MD HEMATOLOGY ORDERABLE S [facility] [place] [address] * (ABNORMAL) Comprehensive metabolic panel (03/27/2024 12:01 PM EDT) Glucose 89 65 - 199 mg/dL 03/27/2024 1:[address] [facility] Comment:Glucose Concentratio n >=200 mg/dL plus symptoms is consistent with Diabetes Mellitus. Blood Urea Nitrogen 7(L) 8 - 18 mg/dL 03/27/2024 1:[address] [facility] Creatinine 0.70 0.70 - 1.20 mg/dL 03/27/2024 1:[address] [facility] Sodium 140 135 - 145 mMol/L 03/27/2024 1:[address] [facility] Potassium 3.9 3.5 - 5.0 mMol/L 03/27/2024 1:[address] [facility] Chloride 102 98 - 107 mMol/L 03/27/2024 1:[address] [facility] Carbon Dioxide 28 22 - 31 mMol/L 03/27/2024 1:[address] [facility] Anion Gap 10 5 - 15 mMol/L 03/27/2024 1:[address] [facility] Calcium 9.2 8.5 - 10.5 mg/dL 03/27/2024 1:[address] [facility] Protein, Total 7.6 6.1 - 8.0 g/dL 03/27/2024 1:[address] [facility] Albumin 4.8 3.2 - 5.2 g/dL 03/27/2024 1:[address] [facility] Aspartate Aminotransferase 18 <=30 unit/L 03/27/2024 1:[address] [facility] Alanine Aminotransferase 15 0 - 30 unit/L 03/27/2024 1:[address] [facility] Alkaline Phosphatase 49 35 - 105 unit/L 03/27/2024 1:[address] [facility] Bilirubin, Total 0.2 <=1.3 mg/dL 03/27/2024 1:[address] [facility] Est Glomerular Filtration Rate - Female 106 mL/min/1. 73 m?? 03/27/2024 1:[address] [facility] Comment: This patient's estimated GFR was [...] Fasting Status No 03/27/2024 1:[address] [facility] Blood VENOUS BLOOD SPECIMEN / Unknown Venipuncture / Unknown 03/27/2024 12:01 PM EDT 03/27/2024 12:01 PM EDT Luis Bradley MD CHEMISTRY ORDERABLES [facility] [place] [address] * Urinalysis with reflex Culture (03/27/2024 12:01 PM EDT) Glucose, Urine Dipstick Negative Negative 03/27/2024 1:[address] [facility] Protein, Urine Dipstick Negative Negative 03/27/2024 1:[address] [facility] Bilirubin, Urine Dipstick Negative Negative 03/27/2024 1:[address] [facility] Comment:Clinical correlation required for positive Urine Bilirubin results as false positive may occur with some drugs and drug related products. If a false positive is suspected a serum total bilirubin should be considered if clinically indicated. Urobilinogen, Urine Dipstick Normal Normal, 0.2 mg/dL, 1.0 mg/dL 03/27/2024 1:[address] [facility] pH, Urine (dipstick) 7.5 5.0 - 8.0 03/27/2024 1:[address] [facility] Blood, Urine Dipstick Negative Negative 03/27/2024 1:[address] [facility] Ketone, Urine Dipstick Negative Negative 03/27/2024 1:[address] [facility] Nitrite, Urine Dipstick Negative Negative 03/27/2024 1:[address] [facility] Leukocytes, Urine Dipstick Negative Negative 03/27/2024 1:[address] [facility] Specific [place] Urine Automated 1.013 1.005 - 1.030 03/27/2024 1:[address] [facility] Appearance, Urine Dipstick Clear Clear 03/27/2024 1:[address] [facility] Color, Urine Dipstick Yellow Yellow, Dark Yellow 03/27/2024 1:[address] [facility] CULTURE ADDED? 03/27/2024 1:[address] [facility] Urine URINE SPECIMEN OBTAINED BY CLEAN CATCH PROCEDURE / Unknown Non Blood Collection / Unknown 03/27/2024 12:01 PM EDT 03/27/2024 12:01 PM EDT Luis Bradley MD URINE ORDERABLES [facility] [place] [address] * (ABNORMAL) C3 Complement (03/27/2024 12:01 PM EDT) Complement C3 79(L) 90 - 180 mg/dL 03/27/2024 1:[address] [facility] Blood VENOUS BLOOD SPECIMEN / Unknown Venipuncture / Unknown 03/27/2024 12:01 PM EDT 03/27/2024 12:01 PM EDT Luis Bradley MD [place] [address] * C4 Complement (03/27/2024 12:01 PM EDT) Complement C4 10 10 - 40 mg/dL 03/27/2024 1:[address] [facility] Blood VENOUS BLOOD SPECIMEN / Unknown Venipuncture / Unknown 03/27/2024 12:01 PM EDT 03/27/2024 12:01 PM EDT Luis Bradley MD CHEMISTRY ORDERABLES Performing Organization Address City/[facility]/ZIP [place] [address] documented in this encounter Visit Diagnoses Diagnosis Other forms of systemic lupus erythematosus, unspecified organ involvement status Hematochezia Blood in stool documented in this encounter Care Teams Benzene Worker Relationship Specialty Start Date End Date Geraldo Gracia DNP [address] [place] [id number] PCP - General Family Medicine 10/01/22 documented as of this encounter
--- OUTSIDE RECORDS SUMMARY | 2024-06-23 18:18 | XMS_ITS | Encounter Summary ---
Author Organization [place] [id number] Care Team Providers Care Core Java Software Engineer Name Role Phone Geraldo Gracia [facility] Primary Care Provider Reason for Visit * Diagnostic Test (Routine) - Closed Specialty Diagnoses / Procedures Referred By Mikaela costa Referred To Contact Gastroenterology Diagnoses Constipation, unspecified constipation type CREST (calcinosis, Raynaud's phenomenon, esophageal dysfunction, sclerodactyly, telangiectasia) ARM - constipation, RMD Horrigan Procedures High Definition Anal Manometry Unruly Ramirez MD [facility] [place] [address] [facility] [address] [place] [address] Referral ID Status Reason Start Date Expiration Date V isits Requested Visits Authorized [id number] Closed Consult, Test & Treat 12/27/2023 12/26/2024 1 1 Encounter Details Date Type Department Care Team (Latest Contact Info) Description 01/11/2024 1:00 PM EDT Procedure [place] [address] Constipation, unspecified constipation type; CREST (calcinosis, Raynaud's phenomenon, esophageal dysfunction, sclerodactyly, telangiectasia) Social History Tobacco Use Types Packs/Day Years [...] as of this encounter Progress Notes * Klaudia Buckner RN - 01/11/2024 1:00 PM EDT A description of the anal manometry procedure was provided to the patient. All questions were answered and the patient verbalized understanding. After performing a digital rectal exam, the HRAM probe was placed in the rectum without difficulty and the procedure was performed. After removal of the probe, an anorectal balloon expulsion catheterwas placed in the rectum for continuation of the study and then removed. The patient tolerated the procedure well. * Tom Bernstein MD - 01/11/2024 1:00 PM EDT Re: Karolina Richards Brendon Reg No:[id number] : 1975 Date of Service: 01/11/2024 ANORECTAL MANOMETRY w/BALLOON EXPULSION Referring provider:Unruly Ramirez Dear: Dr. Ramirez We had the pleasure of performing a high resolution anorectal manometry on your patient in the GI Motility Laboratory at [facility]. CLINICAL HISTORY AND INDICATION As you know, she is a 48 y.o. female with complaints of constipation RESULTS Resting sphincter pressure (NL Value: Males 70-100, Females 70-90) : 77 mmHg Max squeeze pressure (NL Value: Males 240-300, Females 160-200) : 203 mmHg Squeeze duration: excellent (sustaining at least 50% of the difference between maximum squeeze and resting pressures for at least 20 seconds). Rectoanal inhibitory reflex: present at 60 ccs balloon distention Response to coughing: normal (cough elicits a pressure greater than or equal to double the resting pressure). Dyssynergia evident on push maneuvers. 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 Resting anal sphincter pressure reflecting internal sphincter function was normal. Maximum squeeze pressures reflecting external sphincter function were elevated. Rectal sensation was hypersensitive. Tom Bernstein MD, FRCPC Section of Gastroenterology and Hepatology Formerly [facility] [place] [address] V: [phone] F: [phone] CC/EC: Geraldo Gracia[address] [address] documented in this encounter Plan of Treatment Upcoming Encounters Date Type Department Care Team (Latest Contact Info) Description 06/30/2024 9:45 AM EST Hospital Encounter [place] [address] [facility] [place] [place] [address] 06/30/2024 9:45 AM EST - 06/30/2024 10:45 AM EST Surgery [place] [address] [facility] [place] [place] [address] COLONOSCOPY, DIAGNOSTIC (WRVU 3.26) 07/27/2024 8:00 AM EST TH Visit (TeleHealth) Gastroenterology at [place] [phone] [facility] DR [place] [address] 08/03/2024 3:00 PM EST Office Visit Neurology at [address] [phone]írez MD [facility] [place] [address] 08/25/2024 1:45 PM EDT Office Visit Rheumatology at [place] [phone] [facility] [place] [address] Scheduled Procedures Name Priority Associated Diagnoses Date/Ti me COLONOSCOPY, DIAGNOSTIC (WRV U 3.26) Hematochezia 06/30/2024 9:45 AM EST documented as of this encounter Visit Diagnoses Diagnosis Constipation, unspecified constipation type CREST (calcinosis, Raynaud's phenomenon, esophageal dysfunction, sclerodactyly, telangiectasia) Systemic sclerosis Hematochezia Blood in stool documented in this encounter Care Teams Core Java Software Engineer Relationship Specialty Start Date End Date Geraldo Gracia DNP [address] [place] [phone] PCP - General Family Medicine 10/01/22 documented as of this encounter
--- OUTSIDE RECORDS SUMMARY | 2024-06-23 18:18 | XMS_ITS | Encounter Summary ---
[place] [address] Care Team Providers Care Abrasive Grader Helper Name Role Phone Geraldo Gracia DNP Primary Care Provider [phone] Reason for Visit * Reason Comments Medication Refill Encounter Details Date Type Department Care Team (Late st Contact Info) Description 07/24/2023 Refill Neurology at [facility] [address] [place] [address] lEizabeth Banerjee APRN [facility] [place] [address] Social History Tobacco Use Types Packs/Day Years [...] Telephone Encounter - Cynthia Mckeon RN - 07/26/2023 11:37 AM EST Prescription Renewal Request Name: Karolina Olivas : 1975 Prescription(s) Requested: Requested Prescriptions Pending Prescriptions Disp Refills Emgality Pen 120 mg/mL Pen Injector [Pharmacy Med Name: EMGALITY 120MG/ML SOAJ] 1 mL 5 Sig: INJECT THE CONTENTS OF ONE PEN (120MG) SUBCUTANEOUSLY ONCE EVERY 28 DAYS. Date of Encounter last in This Dept (If need an appointment send to secretaries to schedule): Elizabeth Banerjee APRN (Nurse Practitioner) Neurology Encounter Date: 10/22/2022 Next Encounter in This Dept: 11/02/2023 Date of Last Refill (for each medication): 02/17/2023 1:5 Medication category requirements (labs etc): n/a Status of request: Pended Allergies Allergen Reactions Gluten Nausea And Vomiting, Rash and Other (See Comments) Also stomach aches very bad Codeine Phosphate CIS - Nausea/Vomiting Doxycycline Monohydrate CIS - HANDS GET NUMB Cynthia Mckeon RN 07/26/23 11:38 AM documented in this encounter Plan of Treatment Upcoming Encounters Date Type Department Care Team (Latest Contact Info) Description 06/30/2024 9:45 AM EST Hospital Encounter [place] [address] Flor Velasco MD [facility] [place] [address] 06/30/2024 9:45 AM EST - 06/30/2024 10:45 AM EST [place] [id number] Flor Velasco MD [facility] [place] [address] COLONOSCOPY, DIAGNOSTIC (WRVU 3.26) 07/27/2024 8:00 AM EST TH Visit (TeleHealth) Gastroenterology at [place] [phone] Unruly Ramirez MD [facility] [place] [address] 08/03/2024 3:00 PM EST Office Visit Neurology at [address] [phone] Melvin Ramírez MD [facility] [address] 08/25/2024 1:45 PM EDT Office [place] [address] Keven Church MD [facility] [place] [address] Scheduled Procedures Name Priority Associated Diagnoses Date/Ti me COLONOSCOPY, DIAGNOSTIC (WRV U 3.26) Hematochezia 06/30/2024 9:45 AM EST documented as of this encounter Visit Diagnoses Not on filedocumented in this encounter Care Teams Abrasive Grader Helper Relationship Specialty Start Date End Date Geraldo Gracia DNP [address] [place] [id number] PCP - General Family Medicine 10/01/22 documented as of this encounter
--- OUTSIDE RECORDS SUMMARY | 2024-06-23 18:18 | XMS_ITS | Encounter Summary ---
[place] [address] Care Team Providers Care Java Grails Developer Name Role Phone Geraldo Gracia DNP Primary Care Provider Encounter Details Date Type Department Care Team (Latest Contact Info) Description 11/15/2023 9:10 AM EDT Laboratory Appointment Lab [address] [place] [id number] CREST (calcinosis, Raynaud's phenomenon, esophageal dysfunction, sclerodactyly, telangiectasia); Undifferentiated connective tissue disease; Other forms of systemic lupus erythematosus, unspecified [...] 9:45 AM EST Hospital Encounter [place] [phone] Flor Velasco MD [facility] [place] [address] 06/30/2024 9:45 AM EST - 06/30/2024 10:45 AM EST Surgery Gastroenterology at [place] [phone] Flor Velasco MD [facility] [place] [address] COLONOSCOPY, DIAGNOSTIC (WRVU 3.26) 07/27/2024 8:00 AM EST TH Visit (TeleHealth) [place] [phone] Unruly Ramirez MD [facility] [place] [address] 08/03/2024 3:00 PM EST Office Visit Neurology at [address] [phone] Melvin Ramírez MD [facility] [place] [address] 08/25/2024 1:45 PM EDT Office [place] [phone] Keven Church MD [facility] [place] [address] Scheduled Procedures Name Priority Associated Diagnoses Date/Ti me COLONOSCOPY, DIAGNOSTIC (WRV U 3.26) Hematochezia 06/30/2024 9:45 AM EST documented as of this encounter Procedures Procedure Name Priority Date/Time Associated Diagnosis Comments CRP, ACUTE INFLAMMATION Routine 11/15/2023 9:41 AM EDT CREST (calcinosis, Raynaud's phenomenon, esophageal dysfunction, sclerodactyly, telangiectasia) Undifferentiated connective tissue disease Other forms of systemic lupus erythematosus, unspecified organ involvement status EXTRACTABLE NUCLEAR ANTIGEN (COBLY) AB Routine 11/15/2023 9:41 AM EDT CREST (calcinosis, Raynaud's phenomenon, esophageal dysfunction, sclerodactyly, telangiectasia) Undifferentiated connective tissue disease Other forms of systemic lupus erythematosus, unspecified organ involvement status DNA ANTIBODY (DOUBLE-STRANDED) Routine 11/15/2023 9:41 AM EDT CREST (calcinosis, Raynaud's phenomenon, esophageal dysfunction, sclerodactyly, telangiectasia) Undifferentiated connective tissue disease Other forms of systemic lupus erythematosus, unspecified organ involvement status HEMOGRAM Routine 11/15/2023 9:41 AM EDT CREST (calcinosis, Raynaud's phenomenon, esophageal dysfunction, sclerodactyly, telangiectasia) Undifferentiated connective tissue disease Other forms of systemic lupus erythematosus, unspecified organ involvement status DIFFERENTIAL, AUTOMATED Routine 11/15/2023 9:41 AM EDT CREST (calcinosis, Raynaud's phenomenon, esophageal dysfunction, sclerodactyly, telangiectasia) Undifferentiated connective tissue disease Other forms of systemic lupus erythematosus, unspecified organ involvement status URINALYSIS DIPSTICK Routine 11/15/2023 9 :41 AM EDT CREST (calcinosis, Raynaud's phenomenon, esophageal dysfunction, sclerodactyly, telangiectasia) Undifferentiated connective tissue disease Other forms of systemic lupus erythematosus, unspecified organ involvement status SEDIMENTATION RATE Routine 11/15/2023 9: 41 AM EDT CREST (calcinosis, Raynaud's phenomenon, esophageal dysfunction, sclerodactyly, telangiectasia) Undifferentiated connective tissue disease Other forms of systemic lupus erythematosus, unspecified organ involvement status CBC (WITH DIFF) Routine 11/15/2023 9:41 AM EDT CREST (calcinosis, Raynaud's phenomenon, esophageal dysfunction, sclerodactyly, telangiectasia) Undifferentiated connective tissue disease Other forms of systemic lupus erythematosus, unspecified organ involvement status C3 COMPLEMENT Routine 11/15/2023 9:41 AM EDT CREST (calcinosis, Raynaud's phenomenon, esophageal dysfunction, sclerodactyly, telangiectasia) Undifferentiated connective tissue disease Other forms of systemic lupus erythematosus, unspecified organ involvement status C4 COMPLEMENT Routine 11/15/2023 9:41 AM EDT CREST (calcinosis, Raynaud's phenomenon, esophageal dysfunction, sclerodactyly, telangiectasia) Undifferentiated connective tissue disease Other forms of systemic lupus erythematosus, unspecified organ involvement status TSH Routine 11/15/2023 9:41 AM EDT CREST (calcinosis, Raynaud's phenomenon, esophageal dysfunction, sclerodactyly, telangiectasia) Undifferentiated connective tissue disease Other forms of systemic lupus erythematosus, unspecified organ involvement status COMPREHENSIVE METABOLIC PANEL Routine 11/15/2023 9:41 AM EDT CREST (calcinosis, Raynaud's phenomenon, esophageal dysfunction, sclerodactyly, telangiectasia) Undifferentiated connective tissue disease Other forms of systemic lupus erythematosus, unspecified organ involvement status documented in this encounter Results * (ABNORMAL) Differential, Automated (11/15/2023 9:41 AM EDT) Neutrophil % 68.5 % [facility] Neutrophil Absolute 3.39 1.70 - 6.10 x10(3)/mc L [facility] Lymph % 16.4 % [facility] Lymphocytes Abs 0.8(L) 0.9 - 3.2 x10(3)/mc L [facility] Monocyte % 10.1 % [facility] Monocyte Abs 0.5 0.3 - 0.9 x10(3)/[facility] Eos % 3.0 % [facility] Eosinophils Abs 0.2 0.0 - 0.4 x10(3)/[facility] Basophil % 1.6 % [facility] Baso Absolute 0.1 0.0 - 0.1 x10(3)/[facility] Immature Gran % 0.40 % [facility] Comment: Immature granulocytes(IG's)percentage and absolute count will include metamyelocytes, myelocytes, and promyelocytes. Blood smears from CBCs yielding IG's will be scanned manually for concordance. If this scan disagrees with the automated IG or if promyelocytes are noted, a manual differential will be performed. Immature Gran Absolute 0.02 0.00 - 0.04 x10(3)/[facility] Blood 11/15/2023 9:41 AM EDT 11/15/2023 10:06 AM EDT Narrative Resulting Agency Comment Spec In Lab Destiney Blanco DO HEMATOLOGY ORDERABLE S [facility] [place] [address] * Hemogram (11/15/2023 9:41 AM EDT) White Blood Cell 5.0 4.0 - 9.5 x10(3)/[facility] Red Blood Cell 4.32 4.00 - 5.21 x10(6)/[facility] Hemoglobin 13.8 11.7 - 15.5 g/dL [facility] Hematocrit 39.6 35.7 - 45.8 % [facility] Mean Cell Volume 91.7 82.6 - 94.4 fL [facility] Mean Cell Hemoglobin 31.9 27.1 - 32.0 pg [facility] Mean Cell Hemoglobin Concentration 34.8 31.7 - 35.0 g/dL [facility] Platelet 224 145 - 357 x10(3)/[facility] RDW Standard Deviation 40.2 37.0 - 46.0 fL [facility] RDW coefficient of variation 11.8 11.5 - 14.1 % [facility] Mean Platelet Volume 11.0 7.6 - 12.9 fL [facility] NRBC% auto 0.0 % [facility] NRBC Absolute 0.000 0.000 - 0.000 x10(3)/[facility] Blood 11/15/2023 9:41 AM EDT 11/15/2023 10:06 AM EDT Narrative Resulting Agency Comment Spec In Lab Destiney Blanco DO HEMATOLOGY ORDERABLE S Performing Organization Address City/[facility]/ZIP Co de Phone Number [facility] [place] [address] * TSH (11/15/2023 9:41 AM EDT) Thyroid Stimulating Hormone 2.31 0.27 - 4.20 mcIU/mL [facility] Comment: Reference Interval (mcIU/mL): Females: ??First Trimester: 0.23-3.88 ??Second Trimester: 0.22-3.90 ??Third Trimester: 0.44-4.66 Blood 11/15/2023 9:41 AM EDT 11/15/2023 10:06 AM EDT Narrative Resulting Agency Comment Spec In Lab Shay Blanco MD CHEMISTRY ORDERABLES Performing Organization Address City/[facility]/ZIP Co de Phone Number [facility] [place] [address] * (ABNORMAL) C3 Complement (11/15/2023 9:41 AM EDT) Complement C3 85(L) 90 - 180 mg/dL [facility] Blood 11/15/2023 9:41 AM EDT 11/15/2023 10:06 AM EDT Narrative Resulting Agency Comment Spec In Lab Shay Blanco MD CHEMISTRY ORDERABLES Performing Organization Address City/[facility]/ZIP Co de Phone Number [facility] [place] [address] * C4 Complement (11/15/2023 9:41 AM EDT) Complement C4 11 10 - 40 mg/dL [facility] Blood 11/15/2023 9:41 AM EDT 11/15/2023 10:06 AM EDT Narrative Resulting Agency Comment Spec In Lab Shay Blanco MD CHEMISTRY ORDERABLES Performing Organization Address [facility] de Phone Number [facility] [place] [address] * (ABNORMAL) Urinalysis without microscopic (11/15/2023 9:41 AM EDT) Glucose, Urine Dipstick Negative Negative mg/dL [facility] Protein, Urine Dipstick Trace(A) Negative mg/dL [facility] Bilirubin, Urine Dipstick Negative Negative mg/dL [facility] Comment: Clinical correlation required for positive Urine Bilirubin results as false positive may occur with some drugs and drug related products. If a false positive is suspected a serum total bilirubin should be considered if clinically indicated. Urobilinogen, Urine Dipstick Normal Normal mg/dL [facility] pH, Urn (dipstick) 7.5 5.0 - 8.0 [facility] Blood, Urine Dipstick Negative Negative mg/dL [facility] Ketone, Urine Dipstick Trace(A) Negative mg/dL [facility] Nitrite, Urine Dipstick Negative Negative [facility] Leukocytes, Urine Dipstick Negative Negative [facility] Appearance, Urine Dipstick Clear Clear [facility] Specific [place] Urine Automated 1.018 1.005 - 1.030 [facility] Color, Urine Dipstick Yellow Yellow [facility] Urine 11/15/2023 9:41 AM EDT 11/15/2023 9:52 AM EDT Narrative Resulting Agency Comment Spec In Lab Shay Blanco MD URINE ORDERABLES [facility] [place] [address] * Comprehensive metabolic panel (non-fasting) (11/15/2023 9:41 AM EDT) Glucose 86 65 - 199 mg/dL [facility] Comment:Diabetes: >=200 mg/d L plus symptoms Blood Urea Nitrogen 10 8 - 18 mg/dL [facility] Creatinine 0.72 0.70 - 1.20 mg/dL [facility] Sodium 139 135 - 145 mmol/L [facility] Potassium 3.9 3.5 - 5.0 mmol/L [facility] Comment: Please note: ??Patients with WBC >100,000 may have falsely elevated Potassium levels. ??For accurate Potassium quantification in these patients send serum separator tube (gold top) for subsequent determinations. ??Contact the Clinical Chemistry Laboratory if there are any questions. Chloride 101 98 - 107 mmol/L [facility] Carbon Dioxide 29 22 - 31 mmol/L [facility] Anion Gap 9 5 - 15 mmol/L [facility] Calcium 9.8 8.5 - 10.5 mg/dL [facility] Protein, Total 7.4 6.1 - 8.0 g/dL [facility] Albumin 4.8 3.2 - 5.2 g/dL [facility] Aspartate Aminotransferase 20 0 - 30 unit/L [facility] Alanine Aminotransferase 16 0 - 30 unit/L [facility] Alkaline Phosphatase 54 35 - 105 unit/L [facility] Bilirubin, Total 0.4 0.2 - 1.3 mg/dL [facility] Est Glomerular Filtration Rate 102 >=60 mL/min/1. 73 m?? [facility] Comment: This patient's [...] urine creatinine clearance. Assignment of CKD stage 1-5 for patients with an eGFR near the transition point between stages may be based on clinical assessment of muscle mass and symptoms in addition to eGFR. Blood 11/15/2023 9:41 AM EDT 11/15/2023 10:06 AM EDT Narrative Resulting Agency Comment Spec In Lab Shay Blanco MD CHEMISTRY ORDERABLES Performing Organization Address [facility] de Phone Number [facility] [place] [address] * DNA Antibody (Double-Stranded) (11/15/2023 9:41 AM EDT) [facility] dsDNA Ab 1.9 <=15.0 IU/mL [facility] Comment: <10 negative 10-15 equivocal >15 positive This dsDNA antibody result was generated using a fluoroenzyme immunoassay on the [employer] 250 analyzer. This quantitative test is designed to detect IgG antibodies directed against double stranded DNA in human serum. The presence of antibodies that recognize dsDNA is a highly specific marker for systemic lupus erythematosus. Please note that as of 03/24/2022 that this testing is performed by the Special Chemistry Laboratory at [facility]. This change in testing location is associated with a change is testing method and reference intervals. Please review the results of this test in association with the posted reference intervals. Blood 11/15/2023 9:41 AM EDT 11/16/2023 7:25 AM EDT Narrative Resulting Agency Comment Spec In Lab Shay Blanco MD LAB SEND OUT ORDERAB LES [facility] [place] [address] * (ABNORMAL) Extractable Nuclear Antigen (COLBY) Ab (11/15/2023 9:41 AM EDT) SS-A/Ro Ab 0.50 <=10.00 unit/mL [facility] Comment: <7 negative 7-10 equivocal >10 positive The SS-A antibody result was generated using fluoroenzyme immunoassay on the [employer] 250 analyzer. the semi-quantitative test is designed to detect IgG antibodies in human serum that are reactive to the SS-A (Ro) protein. SS-B/La Ab 0.60 <=10.00 unit/mL [facility] Comment: <7 negative 7-10 equivocal >10 positive The SS-B antibody result was generated using fluoroenzyme immunoassay on the [employer] 250 analyzer. the semi-quantitative test is designed to detect IgG antibodies in human serum that are reactive to the SS-B (La) protein. Scl-70 Ab 0.80 <=10.00 unit/mL [facility] Comment: <7 negative 7-10 equivocal >10 positive The Scl-70 antibody result was generated using fluoroenzyme immunoassay on the [employer] 250 analyzer. the semi-quantitative test is designed to detect IgG antibodies in human serum that are reactive to the Scl-70 protein. Sm ([place]) Ab <0.70 <=10.00 unit/mL [facility] Comment: <7 negative 7-10 equivocal >10 positive The Sm antibody result was generated using fluoroenzyme immunoassay on the [employer] 250 analyzer. the semi-quantitative test is designed to detect IgG antibodies in human serum that are reactive to the Sm protein. U1RNP Ab 0.90 <=10.00 unit/mL [facility] Comment: <5 negative 5-10 equivocal >10 positive The U1RNP antibody result was generated using fluoroenzyme immunoassay on the [employer] 250 analyzer. the semi-quantitative test is designed to detect IgG antibodies in human serum that are reactive to the U1RNP protein. Centromere Ab 16.00(H) <=10.00 unit/mL [facility] Comment: <7 negative 7-10 equivocal >10 positive The CENP antibody result was generated using fluoroenzyme immunoassay on the [employer] 250 analyzer. the semi-quantitative test is designed to detect IgG antibodies in human serum that are reactive to the Centromere B protein. Ivory-1 Ab 0.40 <=10.00 unit/mL [facility] Comment: <7 negative 7-10 equivocal >10 positive The Ivory-1 antibody result was generated using fluoroenzyme immunoassay on the [employer] 250 analyzer. the semi-quantitative test is designed to detect IgG antibodies in human serum that are reactive to the Ivory-1 protein. Blood 11/15/2023 9:41 AM EDT 11/16/2023 7:25 AM EDT Narrative Resulting Agency Comment Spec In Lab Shay Blanco MD LAB SEND OUT ORDERAB LES Performing Organization Address [facility] Co de Phone Number [facility] [place] [address] * Sedimentation rate (11/15/2023 9:41 AM EDT) Sedimentation Rate Automated 7 2 - 37 mm/hr [facility] Comment: Effective May 10, 2019 new capillary photometric technology has resulted in a change in reference ranges. It is recommended that each ESR result be reviewed with its own age appropriate reference range. Blood 11/15/2023 9:41 AM EDT 11/15/2023 10:06 AM EDT Narrative Resulting Agency Comment Spec In Lab Shay Blanco MD HEMATOLOGY ORDERABLE S Performing Organization Address [facility] Co de Phone Number [facility] [place] [address] * CRP, acute inflammation (11/15/2023 9:41 AM EDT) C-Reactive Protein <3.0 <=4.9 mg/L [facility] Blood 11/15/2023 9:41 AM EDT 11/15/2023 10:06 AM EDT Narrative Resulting Agency Comment Spec In Lab Shay Blanco MD CHEMISTRY ORDERABLES [facility] [place] [address] documented in this encounter Visit Diagnoses Diagnosis CREST (calcinosis, Raynaud's phenomenon, esophageal dysfunction, sclerodactyly, telangiectasia) Systemic sclerosis Undifferentiated connective tissue disease Unspecified diffuse connective tissue disease Other forms of systemic lupus erythematosus, unspecified organ involvement status Hematochezia Blood in stool documented in this encounter Care Teams Java Grails Developer Relationship Specialty Start Date End Date Geraldo Gracia DNP [address] [place] [id number] PCP - General Family Medicine 10/01/22 documented as of this encounter
--- OUTSIDE RECORDS SUMMARY | 2024-06-23 18:18 | XMS_ITS | Encounter Summary ---
Author Organization [facility] [place] [address] Care Team Providers Care Railroad Dining Car Stewardess Name Role Phone Geraldo Gracia DNP Primary Care Provider [phone] Encounter Details Date Type Department Care Team (Late st Contact Info) Description 02/10/2024 10:30 AM EDT Office [place] [address] Unruly Ramirez MD [facility] DR [place]STRO[place] [address] CREST (calcinosis, Raynaud's phenomenon, esophageal dysfunction, sclerodactyly, telangiectasia); Constipation, unspecified constipation type; Dyssynergic defecation; Bloating Social History Tobacco Use Types Packs/Day Years Used Date Smoking Tobacco: Former Cigarettes Q uit: 1992 Smokeless Tobacco: Never Comments:In high school smok ed maybe a 0.5 of a cigarette daily Alcohol Use Standard Drinks/Week Comments Yes 0 (1 standard drink = 0.6 oz pur e alcohol) < once a month [facility] Inpatient Questions Answer Date Recorded [...] Sign Reading Time Taken Comments Blood Pressure 97/57 02/10/2024 10:26 AM EDT Pulse 80 02/10/2024 10:26 AM EDT Temperature - - Respiratory Rate - - Oxygen Saturation 100% 02/10/2024 10: 26 AM EDT Inhaled Oxygen Concentration - - Weight 49.8 kg (109 lb 12.8 oz) 024 10:26 AM EDT Height - - Body Mass Index 20.08 12/16/2023 9:50 AM EDT documented in this encounter Patient Instructions * Patient Instructions* Unruly Ramirez MD - 02/10/2024 10:30 AM EDT [facility] PH[facility]ERAP[facility], FRANKO SANDERSON Please call to schedule pelvic floor therapyfor dyssynergic defecation [phone] - please start miralax 1 scoop twice a day - please start taking senna 1 tablet twice a day - consider eating 2 kiwis/day, can also consider prunes, dates documented in this encounter Progress Notes * Unruly Ramirez MD - 02/10/2024 10:30 AM EDT [facility] Division of Gastroenterology and Hepatology Outpatient Follow-up [...] History: - last seen in GI clinic 12/16/23 at which time we started Linzess - She did not have any improvement with Linzess - underwent anorectal manometry which was consistent with dyssynergic defecation - Switched from Linzess to prucalopride 01/18 and referred to pelvic floor therapy - Additionally, she takes 2 colace pills at night. She may have pellets of hard stool in the morning - Uses walking pad throughout the day, seems to help motility - bloating might be slightly better with walking more and prucalopride Review of Systems: Constitutional: No weight loss HEENT: No visual changes, URI symptoms Cardio: No chest pain/palpitations Resp: No cough, no SOB Hem/Lymph: no new lumps or bumps on body GI: see HPI : no dysuria Skin: no new rashes Musculoskeletal: no new joint pains Neuro: no new numbness, weakness in extremities All other systems negative except as above in HPI Current Outpatient Medications Medication Sig Dispense Refill prucalopride (Motegrity) 2 mg tablet Take 1 tablet by mouth daily. 90 tablet 1 Emgality Pen 120 mg/mL Pen Injector INJECT [...] Take 12.5 mg by mouth nightly. 0 senna (Senokot) 8.6 mg tablet Take 1 tablet by mouth 2 times daily. polyethylene glycoL (Miralax) 17 gram/dose Powder Take 17 g by mouth 2 times daily. docusate sodium (Colace) 50 mg capsule Take 1 capsule by mouth 2 times daily. No current facility-administered medications for this visit. Allergies Allergen Reactions Gluten Nausea And Vomiting, Rash and Other (See Comments) Also stomach aches very bad Codeine Phosphate CIS - Nausea/Vomiting Doxycycline Monohydrate CIS - HANDS GET NUMB Physical Examination: Patient Vitals for the past 24 hrs: Pulse BP SpO2 02/10/24 1026 80 97/57 100 % Gen: well appearing CV: well perfused Resp: normal work of breathing Skin: no jaundice Neuro: no asterixis Labs: Reviewed in EDH/Scan Docs Lab Results Component Value Date WBC 5.0 11/15/2023 HGB 13.8 11/15/2023 HCT 39.6 11/15/2023 MCV 91.7 11/15/2023 PLATELET 224 11/15/2023 Chemistry Component Value Date/Time NA 139 11/15/2023 0941 K 3.9 11/15/2023 0941 CL 101 11/15/2023 0941 CO2 29 11/15/2023 0941 BUN 10 11/15/2023 0941 CREATININE 0.72 11/15/2023 0941 Component Value Date/Time CALCIUM 9.8 11/15/2023 0941 ALKPHOS 54 11/15/2023 0941 AST 20 11/15/2023 0941 ALT 16 11/15/2023 0941 BILITOT 0.4 11/15/2023 0941 Past Endoscopy and [...] floor therapy to set up an appointment. Linzess unfortunately did not help her symptoms. We switched her to prucalopride which helps slightly more but is still only having tiny pellet stools in the morning. We discussed adding miralax and senna twice a day to see if we can improve her constipation. She will also try adding 2 kiwis/day to her diet to see if this helps as well. RECOMMENDATIONS: - continue prucalopride - start senna bid - start miralax bid - continue colace - pelvic floor therapy referral in, Karolina will call - 2 kiwis/day Follow up 3 months This case was discussed with Dr. Aiken. Unruly Ramirez MD Fellow in Gastroenterology and Hepatology [place] [id number] P: [phone] F: [phone] [facility], [facility] [address] [place] [address] * Karly Aiken MD - 02/10/2024 10:30 AM EDT ATTENDING ATTESTATION: I have discussed the patient with the GI fellow, Dr. Ramirez and I agree with the fellow's findings, assessment, and plan as written. Karly Aiken MD Gastroenterology attending Pager [phone] documented in this encounter Plan of Treatment Upcoming Encounters Date Type Department Care Team (Latest Contact Info) Description 06/30/2024 9:45 AM EST Hospital Encounter Gastroenterology at [place] [phone] Flor Velasco MD [facility] [place] [address] 06/30/2024 9:45 AM EST - 06/30/2024 10:45 AM EST [place] [phone] Flor Velasco MD [facility] [place] [address] COLONOSCOPY, DIAGNOSTIC (WRVU 3.26) 07/27/2024 8:00 AM EST TH Visit (TeleHealth) Gastroenterology at [place] [phone] Unruly Ramirez MD [facility] [place] [address] 08/03/2024 3:00 PM EST Office Visit Neurology at [address] [phone] Melvin Ramírez MD [facility] [address] [place] [place] [address] 08/25/2024 1:45 PM EDT [place] [address] Keven Church MD [facility] [place] [address] Scheduled Procedures Name Priority Associated Diagnoses Date/Ti me COLONOSCOPY, DIAGNOSTIC (WRV U 3.26) Hematochezia 06/30/2024 9:45 AM EST documented as of this encounter Visit Diagnoses Diagnosis CREST (calcinosis, Raynaud's phenomenon, esophageal dysfunction, sclerodactyly, telangiectasia) Systemic sclerosis Constipation, unspecified constipation type Dyssynergic defecation Bloating Flatulence, eructation, and gas pain Hematochezia Blood in stool documented in this encounter Care Teams [employer] D[employer] Car Stewardess Relationship Specialty Start Date End Date Geraldo Gracia DNP [address] [place] [id number] PCP - General Family Medicine 10/01/22 documented as of this encounter
--- OUTSIDE RECORDS SUMMARY | 2024-06-23 18:18 | XMS_ITS | Encounter Summary ---
[place] [address] Care Team Providers Care Medical/Surgery Registered Nurse Name Role Phone Geraldo Gracia DNP Primary Care Provider [phone] Encounter Details Date Type Department Care Team (Late st Contact Info) Description 12/16/2023 10:00 AM EDT Office Visit [place] [address] Unruly Ramirez MD Constipation, unspecified constipation type; CREST (calcinosis, Raynaud's [...] Sign Reading Time Taken Comments Blood Pressure 103/56 12/16/2023 9:50 AM EDT Pulse 76 12/16/2023 9:50 AM EDT Temperature - - Respiratory Rate - - Oxygen Saturation - - Inhaled Oxygen Concentration - - Weight 49.5 kg (109 lb 3.2 oz) 12/16/2023 9:50 A M EDT Height 157.5 cm (5' 2) 12/16/2023 9:50 AM EDT Body Mass Index 19.97 12/16/2023 9:50 AM EDT documented in this encounter Patient Instructions * Patient Instructions* Unruly Ramirez MD - 12/16/2023 10:00 AM EDT Please start taking Linzess as soon as it is approved. Let us know if you have any questions or concerns. * Attachments The following attachments cannot be sent through Care Everywhere. * Linaclotide Oral Capsule (LINACLOTIDE - ORAL) (Luxembourgish) documented in this encounter Progress Notes * Unruly Ramirez MD - 12/16/2023 10:00 AM EDT [facility] Division of Gastroenterology and Hepatology Outpatient [...] smooth muscle Ab (1:160). Interval History: - Last seen in GI clinic 06/17/23 with plans to do EGD/colo, consider trulance, and increase miralaxto bid - EGD/[place] 07/2023 - EGD normal. Esophagus dilated to help with dysphagia. [place] - redundant colon, non-bleeding internal hemorrhoids, congested mucosa in the ascending colon and cecum appears benign, may be related to redundancy in right colon. Pathology: mild chronic inflammation in distal esophagus, fragments of columnar epithelium in proximal esophagus neg for intestinal metaplasia. 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 Decided to try Mobic for joint pains, which she did not tolerate. - She does not feel that the miralax is helpful for her symptoms. She had worse stomach cramping with miralax, and it did not produce a BM.Has BMs once a week. Regimen: 2 colace at night. If no BM, she will try dulcolax which usually works. If that does not work, she will try a suppository. Always feels bloated - She does have hemorrhoids as of a year ago with the constipation. Sees blood on the toilet paper occasions - Denies dysphagia, food getting stuck in her esophagus. She previously would get a pill stuck in her esophagus. This has improved since her esophageal dilation 07/2023 Works in [employer]. Has adult chicken. Works from home - has a dog and a cat. Review of Systems: Constitutional: No weight loss [...] Current Outpatient Medications Medication Sig Dispense Refill Emgality Pen 120 mg/mL Pen Injector INJECT [...] tablet by mouth daily. 60 tablet 0 docusate sodium (Colace) 50 mg Capsule Take 50 mg by mouth as needed. melatonin 3 mg Tablet Take 3 mg by mouth nightly. traZODone (Desyrel) 50 mg Tablet Take 25 mg by mouth nightly. magnesium 250 mg Tablet Take 500 mg by mouth nightly. amitriptyline (Elavil) 25 mg Tablet Take 12.5 mg by mouth nightly. 0 No current facility-administered medications for this visit. Allergies Allergen Reactions Gluten Nausea And Vomiting, Rash and Other (See Comments) Also stomach aches very bad Codeine Phosphate CIS - Nausea/Vomiting Doxycycline Monohydrate CIS - HANDS GET NUMB Physical Examination: No data found. Gen: well appearing CV: warm, well perfused Resp: normal work of breathing Abd: Soft, non-tender Skin: no jaundice Neuro: no asterixis Labs: [...] and smooth muscle Ab (1:160). Her constipation may be related to her CREST syndrome. Will start Linzess to see if this helps her symptoms. We went through the potential side effects, including the most common side effect of diarrhea. She is comfortable starting this medication. Pelvic floor therapy may also be helpful for her symptoms. If she does not respond to these interventions, we will consider anorectal manometry. Reassuringly, her LFTs have remained normal, and she does not seem to have autoimmune hepatitis. RECOMMENDATIONS: - Start Linzess - Consider pelvic floor therapy Follow up 2-3 months This case was discussed with Dr. Aiken. Unruly Ramirez MD Fellow in Gastroenterology and Hepatology [place] [id number] P: [phone] F: [phone] [facility] Reji Gracia, [facility] [address] [place] [address] * Karly Aiken MD - 12/16/2023 10:00 AM EDT ATTENDING ATTESTATION: I have discussed the patient with the GI fellow, Dr. Ramirez and I agree with the fellow's findings, assessment, and plan as written. Karly Aiken MD Gastroenterology attending Pager [phone] documented in this encounter Plan of Treatment Upcoming Encounters Date Type Department Care Team (Latest Contact Info) Description 06/30/2024 9:45 AM EST Hospital Encounter Gastroenterology at [place] [phone] Flor Velasco MD [facility] [place] [address] 06/30/2024 9:45 AM EST - 06/30/2024 10:45 AM EST Surgery Gastroenterology at [place] [phone] Flor Velasco MD [facility] [place] [address] COLONOSCOPY, DIAGNOSTIC (WRVU 3.26) 07/27/2024 8:00 AM EST TH Visit (TeleHealth) [place] [address] Unruly Ramirez MD [facility] [place] [address] 08/03/2024 3:00 PM EST Office Visit Neurology at [address] [phone] Melvin Ramírez MD [facility] [place] [address] 08/25/2024 1:45 PM EDT Office [place] [address] Keven Church MD [facility] [place] [address] Scheduled Procedures Name Priority Associated Diagnoses Date/Ti me COLONOSCOPY, DIAGNOSTIC (WRV U 3.26) Hematochezia 06/30/2024 9:45 AM EST documented as of this encounter Visit Diagnoses Diagnosis Constipation, unspecified constipation type CREST (calcinosis, Raynaud's phenomenon, esophageal dysfunction, sclerodactyly, telangiectasia) Systemic sclerosis Hematochezia Blood in stool documented in this encounter Care Teams Medical/Surgery Registered Nurse Relationship Specialty Start Date End Date Geraldo Gracia DNP [address] [place] [address] PCP - General Family Medicine 10/01/22 documented as of this encounter
--- OUTSIDE RECORDS SUMMARY | 2024-06-23 18:18 | XMS_ITS | Encounter Summary ---
[place] [address] Care Team Providers Care Recovery Analyst Name Role Phone Geraldo Gracia [facility] Primary Care Provider Reason for Referral * Diagnostic Test (Routine) - New Request Specialty Diagnoses / Procedures Referred By Mikaela costa Referred To Contact Cardiology Diagnoses CREST (calcinosis, Raynaud's phenomenon, esophageal dysfunction, sclerodactyly, telangiectasia) Undifferentiated connective tissue disease Procedures Echocardiogram Transthoracic Destiney Blanco DO [facility] [place] [address] [facility] [place] [address] Referral ID Status Reason Start Date Expiration Date Visits Requested Visits Authorized [id number] New Request Specialty Service Requested 07/27/2023 07/26/2024 1 1 Encounter Details Date Type Department Care Team (Late st Contact Info) Description 07/27/2023 3:30 PM EST Office [place] [address] Destiney Blanco DO CREST (calcinosis, Raynaud's phenomenon, esophageal dysfunction, sclerodactyly, telangiectasia); Undifferentiated connective tissue disease Social History Tobacco Use Types Packs/Day Years [...] Sign Reading Time Taken Comments Blood Pressure 110/56 07/27/2023 3:22 PM EST Pulse 89 07/27/2023 3:22 PM EST Temperature 37.4 ??C (99.3 ??F) 07/27/2023 3:22 PM ES T Respiratory Rate - - Oxygen Saturation 100% 07/27/2023 3:22 PM EST Inhaled Oxygen Concentration - - Weight 47.9 kg (105 lb 11.2 oz) 07/27/2023 3:22 PM EST Height - - Body Mass Index 19.33 06/17/2023 10:59 AM EST documented in this encounter Patient Instructions * Patient Instructions* Destiney Blanco DO - 07/27/2023 3:30 PM EST Echo due now - PFTs due on October mob for joint pain documented in this encounter Progress Notes * Destiney Blanco DO - 07/27/2023 3:30 PM EST Rheumatology Outpatient Follow Up Note PCP: NANNETTE Justin is a 48 y.o. female who we [...] given cream for improvement - ARNULFO at [facility] 1:320 speckled and cytoplasmic, COLBY negative, dsDNA [...] ARNULFO, + history of cutanious manifestations, +low complement, anti-centromere Positive 2.5 - freatures of CREST positive centromere antibody, 2.5-raynaud's, Gi dysmotility .- consistent withCREST/SLE overlap. - TTE: 11/03/2021: Normal echo, Normal RV systolic pressure - CT chest: 11/03/21: Mild apical scaring - PFTs: Normal PFTs. - Currently on Plaquenil 200mg daily - 06/22: increasing Joint pain/stiffness, started Cellcept 1000 mg BID (no MTX due to fibrosis), 02/20: initially had good response on Cellcept, recommend switch to AZA, awaiting labs 05/22 started aza 50mg daily Vaccine: 1 covid vaccine, declines other vaccines. Eye exam 08/2022: normal Interval History: Patient was on azathioprine for about a month, no significant improvement in joint pains, decided to stop discontinue, was concerned of side effects, immunosuppression. Today reports she is doing well, still has joint arthralgias in her wrists, elbows and knees. No swelling, no significant morning stiffness, joint pain last throughout the day. She did feel that CellCept was initially helpful but when she came off of it for her surgery did not notice any change. Joint pain is not limiting. Raynaud's is stable no digital ulcers. She did have endoscopy for dysphagia and had an esophageal dilation. No shortness of breath, dyspnea on exertion. ROS (positives in bold): Gen: no fevers, no chills, no night sweats Pulm: no SOB CV: no CP Abd: no abd pain, no nausea, no vomiting, no diarrhea MSK: see HPI Meds and Allergies: Reviewed in eDH Physical exam: BP 110/56 Pulse 89 Temp 37.4 ??C (99.3 ??F) (Temporal) Wt 47.9 kg (105 lb 11.2 oz) SpO2 100% BMI 19.33 kg/m?? Gen: well appearing, alert and oriented x 3, nad HEENT: NCAT, EOMI, moist mucous membranes, no oral ulcers, normal sclerae Lymph: no cervical LAD Heart: regular rate, no murmurs, rubs or gallops Lungs: clear to auscultation b/l Abd: soft, +bs, NT/ND Skin: warm and dry, no rheumatologic rashes Nails: no nail pitting Joints: Shoulders: FROM, non-tender to palpation Elbows:FROM Wrists: FROM, no swelling, non-tender Hands: No synovitis, no MCP compression tenderness, full claw and fist Hips: FROM, no tenderness Knees: FROM, no effusion, no tenderness Ankles: FROM, non-tender, no effusion Feet: no MTP compression tenderness, no swelling in MTP/DIP/PIPs Labs/Studies: Reviewed. Assessment/Plan: 47 y.o. 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 Patient initially presented with symptoms in 2020 with Raynaud's, arthralgias, fatigue, photosensitive rash. Initially she had a positive ARNULFO 1:320, speckled pattern with negative COLBY panel suggestive of SLE picture. She was started on Plaquenil without much improvement in her arthralgias. 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 During subsequent evaluations, repeat ARNULFO panel showed centromere pattern and an anticentromere antibody was checked which is elevated, suggesting patient may be developing CREST syndrome like picture-with Raynaud's, GI dysmotility. She does not have any peripheral sclerodactyly but does have tightness of skin on her face around lips and forehead. 2021: Normal echo, chest CT. due to continued arthralgias she was started on CellCept 1000 mg twice a day. Methotrexate was avoided due to liver fibrosis. She did note initial improvement in arthralgias and was doing well at follow-up September 2022. Over the last few months she has noted worsening arthralgias, morningstiffness in her hands, elbows. She was started ofn AZA 05/22 which she stopped after 1 month due to concern of possible side effects. Limited medication options given liver fibrosis. Today on exam no active synovitis, will try NSAID, Mobic as needed for joint pain to see if this helps her symptoms. For her grass she is at high risk of pulmonary hypertension recommend monitoring yearly with echocardiogram, will order this today. Will also continue to monitor for development of ILD with PFTs, duein October. Plan -Trial Mobic 7.5 mg daily for joint arthralgias -Echocardiogram to evaluate for pulmonary hypertension -PFTs due October 2023, ordered today -Follow-up in 4 months Patient was discussed with Dr. Mirna Blanco DO Rheumatology Fellow Pager: [phone] * Luis Bradley MD - 07/27/2023 3:30 PM EST The patient's history was reviewed with Dr. Denver, the rheumatology fellow. History of present illness and diagnosis discussed. Chief complaint and review of systems reviewed. Previous physical exam findings, serologic testing, and diagnostic imaging reviewed. I agree with her summary, findings, diagnostic and therapeutic plans. 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 I do feel that use of azathioprine may be helpful in the potential benefits seem to outweigh the possible risks which are currently an obstacle for her to take this medication. Luis Bradley MD [employer] documented in this encounter Plan of Treatment Upcoming Encounters Date Type Department Care Team (Latest Contact Info) Description 06/30/2024 9:45 AM EST Hospital Encounter Gastroenterology at [place] [phone] Flor Velasco MD [facility] [place] [address] 06/30/2024 9:45 AM EST - 06/30/2024 10:45 AM EST Surgery [place] [address] Flor Velasco MD [facility] [place] [address] COLONOSCOPY, DIAGNOSTIC (WRVU 3.26) 07/27/2024 8:00 AM EST TH Visit (TeleHealth) [place] [address] Unruly Ramirez MD [facility] [place] [address] 08/03/2024 3:00 PM EST Office Visit Neurology at [address] [phone] Melvin Ramírez MD [facility] DR [place] [address] 08/25/2024 1:45 PM EDT Office [place] [address] Keven Church MD [facility] [place] [address] Scheduled Orders Name Type Priority Associated Diagnoses Order Schedule Echocardiogram Transthoracic Echocardiography Routine CREST (calcinosis, Raynaud's phenomenon, esophageal dysfunction, sclerodactyly, telangiectasia) Undifferentiated connective tissue disease Expected: 07/27/2023, Expires: 07/27/2024 Scheduled Procedures Name Priority Associated Diagnoses Date/Ti me COLONOSCOPY, DIAGNOSTIC (WRV U 3.26) Hematochezia 06/30/2024 9:45 AM EST documented as of this encounter Results * Common Pulmonary Function [...] PFT FEV1/FVC Pre-BD Z-Score 0.16 COMPAS PFT [id number] Actual Pre-BD 2.94 % COMPAS PFT [id number] Predicted 2.64 % COMPAS PFT [id number] Pre-BD % of Predicted 111 % COMPAS PFT [id number] Pre-BD Z-Score 0.37 COMPAS PFT DLCO Hb [...] tissue disease Unspecified diffuse connective tissue disease CREST (calcinosis, Raynaud's phenomenon, esophageal dysfunction, sclerodactyly, telangiectasia) Systemic sclerosis Undifferentiated connective tissue disease Unspecified diffuse connective tissue disease Hematochezia Blood in stool documented in this encounter Care Teams Recovery Analyst Relationship Specialty Start Date End Date Geraldo Gracia DNP [address] [place] [address] PCP - General Family Medicine 10/01/22 documented as of this encounter
--- OUTSIDE RECORDS SUMMARY | 2024-06-23 18:18 | XMS_ITS | Encounter Summary ---
[place] [address] Care Team Providers Care Lay Out Former Name Role Phone Geraldo Gracia DNP Primary Care Provider [phone] Encounter Details Date Type Department Care Team (Latest Contact Info) Description 02/03/2024 Specialty [place] [address] Lillian Clinton, [employer] MIDAS ([email or web address]) for Migraine Social History Tobacco Use Types Packs/Day Years [...] as of this encounter Progress Notes * Shaun Martin, [facility] - 02/03/2024 9:48 AM EDT Clinical Management Plan: MIDAS Assessment Specialty Pharmacy Consultation; Shaun Martin [facility] Comprehensive Medication Management (CMM) Karolina Olivas is a 48 y.o. (1975) female who was contacted in regard to a specialty medication assessment. Contact was made with patient referencing use of emgality. Specialty Pharmacy MIDAS Questionnaire More data may exist 02/03/2024 Specialty Pharmacy MIDAS Questionnaire On how many days in the last three months did you have a headache? (If a headache lasted more than a day, count each day) 12 On a scale of 0 to 10, on average, how painful were those headaches? (0 = no pain at all and 10 = the worst pain you can imagine) 6 1. On how many days in the last three months did you miss work or school because of your headaches? 0 2. How many days in the last three months was your productivity at work or school reduced by half or more because of your headaches? (Do not include days you counted in question 1 where you missed work or school) 6 3. On how many days in the last three months did you not do household work (such as housework, home repairs and maintenance, shopping, caring for children and relatives) because of your headaches? 0 4. How many days in the last three months was your productivity related to household work reduced by half or more because of your headaches? (Do not include days you counted in question 3 where you did not do household work) 6 5. On how many days in the last three months did you miss family, social, or leisure activities because of your headaches? 0 How many migraine days per month did you have before using current therapy? 5 How many migraine days per month have you had since starting therapy? 2 Have you noticed that your migraines are not as severe since starting current therapy? Yes Have you used less of your abortive/rescue medications (tripans, NSAID, etc) since starting current therapy? Yes Are your abortive/rescue medications working better to abort migraines since starting current therapy? Yes Do you think your current therapy is helping? Yes MIDAS Score 12 Details Patient understands no changes to current drug regimen were made at the appointment and that [facility] (summary located at top of note) for provider review and follow up. Shaun Martin RPH 02/04/24 10:32 AM documented in this encounter Plan of Treatment Upcoming Encounters Date Type Department Care Team (Latest Contact Info) Description 06/30/2024 9:45 AM EST Hospital Encounter [place] [address] Flor Velasco MD [facility] [place] [address] 06/30/2024 9:45 AM EST - 06/30/2024 10:45 AM EST Surgery [place] [address] Flor Velasco MD [facility] [place] [address] COLONOSCOPY, DIAGNOSTIC (WRVU 3.26) 07/27/2024 8:00 AM EST TH Visit (TeleHealth) [place] [address] Unruly Ramirez MD [facility] [place] [address] 08/03/2024 3:00 PM EST Office Visit Neurology at [address] [phone] Melvin Ramírez MD [facility] [place] [address] 08/25/2024 1:45 PM EDT Office [place] [phone] Keven Church MD [facility] [place] [address] Scheduled Procedures Name Priority Associated Diagnoses Date/Ti me COLONOSCOPY, DIAGNOSTIC (WRV U 3.26) Hematochezia 06/30/2024 9:45 AM EST documented as of this encounter Visit Diagnoses Not on filedocumented in this encounter Care Teams Lay Out Former Relationship Specialty Start Date End Date Geraldo Gracia DNP [address] [place] [address] PCP - General Family Medicine 10/01/22 documented as of this encounter
--- OUTSIDE RECORDS SUMMARY | 2024-06-23 18:18 | XMS_ITS | Encounter Summary ---
[place] [address] Care Team Providers Care Armament Aircraft Mechanic Name Role Phone Geraldo Gracia [facility] Primary Care Provider Reason for Referral * Diagnostic Test (Routine) - Closed Specialty Diagnoses / Procedures Referred By Mikaela costa Referred To Contact Gastroenterology Diagnoses Constipation, unspecified constipation type CREST (calcinosis, Raynaud's phenomenon, esophageal dysfunction, sclerodactyly, telangiectasia) ARM - constipation, RMD Horrigan Procedures High Definition Anal Manometry Unruly Ramirez MD [facility] DR [place] [address] [facility] [place] [address] [place] [address] Referral ID Status Reason Start Date Expiration Date V isits Requested Visits Authorized [id number] Closed Consult, Test & Treat 12/27/2023 12/26/2024 1 1 Encounter Details Date Type Department Care Team (Late st Contact Info) Description 12/27/2023 Telephone [place] [address] [facility] [address] [place] [address] Social History Tobacco Use Types Packs/Day Years [...] encounter Miscellaneous Notes * Telephone Encounter - Unruly Ramirez MD - 12/27/2023 10:49 AM EDT Called Karolina. She reports no improvements in constipation on Linzess which she has been taking for about a week. She stopped taking colace, which she was previously taking at night. Still only hasa BM with a dulcolax suppository. We discussed that it may be helpful to get anorectal manometry todetermine what type of constipation she has and better treat her. She may benefit from pelvic floortherapy. We also discussed starting the colace back up and continuing to take dulcolax suppositories as needed. She will stay on the Linzess for now. documented in this encounter Plan of Treatment Upcoming Encounters Date Type Department Care Team (Latest Contact Info) Description 06/30/2024 9:45 AM EST Hospital Encounter [place] [address] [facility] [place] [address] 06/30/2024 9:45 AM EST - 06/30/2024 10:45 AM EST Surgery Gastroenterology at [place] [phone] [facility] [place] [address] COLONOSCOPY, DIAGNOSTIC (WRVU 3.26) 07/27/2024 8:00 AM EST TH Visit (TeleHealth) Gastroenterology at [place] [phone] [facility] [place] [address] 08/03/2024 3:00 PM EST Office Visit Neurology at [address] [phone]írez MD [facility] [place] [address] 08/25/2024 1:45 PM EDT Office Visit Rheumatology at [place] [phone] [facility] [place] [address] Scheduled Orders Name Type Priority Associated Diagnoses Orde r Schedule High Definition Anal Manometry GI Routine Constipation, unspecified constipation type CREST (calcinosis, Raynaud's phenomenon, esophageal dysfunction, sclerodactyly, telangiectasia) Expected: 12/27/2023 (Approximate), Expires: 06/27/2024 Scheduled Procedures Name Priority Associated Diagnoses Date/Ti me COLONOSCOPY, DIAGNOSTIC (WRV U 3.26) Hematochezia 06/30/2024 9:45 AM EST documented as of this encounter Visit Diagnoses Diagnosis Constipation, unspecified constipation type CREST (calcinosis, Raynaud's phenomenon, esophageal dysfunction, sclerodactyly, telangiectasia) Systemic sclerosis Hematochezia Blood in stool documented in this encounter Care Teams Armament Aircraft Mechanic Relationship Specialty Start Date End Date Geraldo Gracia DNP [address] [place] [address] PCP - General Family Medicine 10/01/22 documented as of this encounter
--- OUTSIDE RECORDS SUMMARY | 2024-06-23 18:18 | XMS_ITS | Encounter Summary ---
[place] [address] Care Team Providers Care Fishing Accessories Maker Name Role Phone Geraldo Gracia DNP Primary Care Provider Encounter Details Date Type Department Care Team (Late st Contact Info) Description 04/05/2024 Telephone [place] [phone] Kaylyn Moreno, RN Social History Tobacco Use Types Packs/Day Years Used Date Smoking Tobacco: Former Cigarettes Q uit: 1992 Smokeless Tobacco: Never Comments:In high school smok ed maybe a 0.5 of a cigarette daily Alcohol Use Standard Drinks/Week Comments Yes 0 (1 standard drink = 0.6 oz pur e alcohol) < once a month [facility] Inpatient Questions Answer Date Recorded Does [...] encounter Miscellaneous Notes * Telephone Encounter - Kaylyn Moreno RN - 04/10/2024 4:11 PM EST I sent Karolina a [email or web address] message. * Telephone Encounter - Kaylyn Moreno RN - 04/10/2024 4:08 PM EST Images from the original note were not included. April 07, 2024 Keven Church MD to Eugene Almanza [facility] 04/07/24 2:02 PM Thank you so much. Let me and the patient know when it is approved please. April 06, 2024 Eugene Almanza, [facility] to Keven Church MD [place] 04/06/24 11:33 AM Just FYI from spec pharmacy side: Benlysta was approved in 2022, but that approval has . We're working on a new one. Thanks! April 05, 2024 Keven Church MD to Me Eugene Almanza [facility] 04/05/24 4:22 PM I am discussing with GI to see what they think. I mentioned to her Cellcept reinitiation or some TPN to help with the constipation. I will let her know when I hear more from GI. She should start Benlysta DEBBIE. It was approved. Let's confirm with Eugene. I am adding him on this conversation. * Telephone Encounter - Maria Teresa Carter I - 04/10/2024 11:41 AM EST Patient calling to check on status. * Telephone Encounter - Kaylyn Moreno RN - 04/05/2024 12:56 PM EST Copied from CRM #[id number]. Topic: Specialty Dept CRMs - Generic Call >> Apr 05, 2024 12:18 PM Patti Peraza wrote: Specialist: Keven Church MD Relationship (if other than patient-full name): self Reason for Call: The patient called back concerning the patient message sent to her on 04/04/24. Thepatient advised she could not find the message in her myd-h. This agent did read her the message. The patient has additional questions. Is she going to be represcribed the CellCept? Should she continue with all the other medications she is currently taking? Benlista was discussed in her last visit.Will she be prescribed Benlista. Please call the patient to discuss. documented in this encounter Plan of Treatment Upcoming Encounters Date Type Department Care Team (Latest Contact Info) Description 06/30/2024 9:45 AM EST Hospital Encounter [place] [address] Flor Velasco MD [facility] [place] [place] [address] 06/30/2024 9:45 AM EST - 06/30/2024 10:45 AM EST Surgery [place] [address] Flor Velasco MD [facility] [place] [address] COLONOSCOPY, DIAGNOSTIC (WRVU 3.26) 07/27/2024 8:00 AM EST TH Visit (TeleHealth) [place] [address] Unruly Ramirez MD [facility] [place] [address] 08/03/2024 3:00 PM EST Office Visit Neurology at [address] [phone] Mlevin Ramírez MD [facility] [place] [address] 08/25/2024 1:45 PM EDT Office Visit Rheumatology at [facility] [place] [address] Keven Church MD [facility] [place] [address] Scheduled Procedures Name Priority Associated Diagnoses Date/Ti me COLONOSCOPY, DIAGNOSTIC (WRV U 3.26) Hematochezia 06/30/2024 9:45 AM EST documented as of this encounter Visit Diagnoses Not on filedocumented in this encounter Care Teams Fishing Accessories Maker Relationship Specialty Start Date End Date Geraldo Gracia DNP [address] [place] [address] PCP - General Family Medicine 10/01/22 documented as of this encounter
--- OUTSIDE RECORDS SUMMARY | 2024-06-23 18:18 | XMS_ITS | Encounter Summary ---
[place] [address] Care Team Providers Care Business Analytics Analyst Name Role Phone Geraldo Gracia DNP Primary Care Provider Encounter Details Date Type Department Care Team (Latest Contact Info) Description 11/14/2023 Travel Social History Tobacco Use Types Packs/Day Years Used Date Smoking Tobacco: Former Cigarettes Q uit: 1992 Smokeless Tobacco: Never Comments:In high school smok ed maybe a 0.5 of a cigarette daily Alcohol Use Standard Drinks/Week Comments Yes 0 (1 standard drink = 0.6 oz pur e alcohol) < once a month [facility] Inpatient Questions Answer Date Recorded Does [...] 9:45 AM EST Hospital Encounter Gastroenterology at [place] [phone] Flor Velasco MD [facility] [place] [address] 06/30/2024 9:45 AM EST - 06/30/2024 10:45 AM EST Surgery Gastroenterology at [address] Flor Velasco MD [facility] [place] [address] COLONOSCOPY, DIAGNOSTIC (WRVU 3.26) 07/27/2024 8:00 AM EST TH Visit (TeleHealth) Gastroenterology at [place] [phone] Unruly Ramirez MD [facility] [place] [address] 08/03/2024 3:00 PM EST Office Visit Neurology at [address] [phone] Melvin Ramírez MD [facility] [place] [address] 08/25/2024 1:45 PM EDT Office Visit Rheumatology at [place] [phone] Keven Church MD [facility] [address] Scheduled Procedures Name Priority Associated Diagnoses Date/Ti me COLONOSCOPY, DIAGNOSTIC (WRV U 3.26) Hematochezia 06/30/2024 9:45 AM EST documented as of this encounter Visit Diagnoses Not on filedocumented in this encounter Care Teams Business Analytics Analyst Relationship Specialty Start Date End Date Geraldo Gracia DNP [address] [place] [address] [place] [address] PCP - General Family Medicine 10/01/22 documented as of this encounter
--- OUTSIDE RECORDS SUMMARY | 2024-06-23 18:18 | XMS_ITS | Encounter Summary ---
[place] [address] Care Team Providers Care Welfare Investigator Name Role Phone Geraldo Gracia DNP Primary Care Provider [phone] Reason for Visit * Reason Comments Medication Refill Encounter Details Date Type Department Care Team (Late st Contact Info) Description 08/21/2023 Refill Neurology at [address] [phone] Trista Fu APRN [facility] [place] [address] Social History Tobacco Use Types Packs/Day Years [...] Telephone Encounter - Cynthia Mckeon RN - 08/22/2023 9:44 PM EDT Prescription Renewal Request Name: Karolina Olivas : 1975 Prescription(s) Requested: Requested Prescriptions Pending Prescriptions Disp Refills Emgality Pen 120 mg/mL Pen Injector [Pharmacy Med Name: EMGALITY 120MG/ML SOAJ] 1 mL 3 Sig: INJECT THE CONTENTS OF ONE PEN (120 MG) SUBCUTANEOUSLY ONCE EVERY 28 DAYS Date of Encounter last in This Dept (If need an appointment send to secretaries to schedule): 10/22/2022 Elizabeth Banerjee Next Encounter in This Dept: 11/02/2023 Date of Last Refill (for each medication): Medication category requirements (labs etc): 07/26/2023 1:0 Status of request: Pended Allergies Allergen Reactions Gluten Nausea And Vomiting, Rash and Other (See Comments) Also stomach aches very bad Codeine Phosphate CIS - Nausea/Vomiting Doxycycline Monohydrate CIS - HANDS GET NUMB Cynthia Mckeon RN 08/22/23 9:44 PM documented in this encounter Plan of Treatment Upcoming Encounters Date Type Department Care Team (Latest Contact Info) Description 06/30/2024 9:45 AM EST Hospital Encounter [place] [address] Flor Velasco MD [facility] [place] [address] 06/30/2024 9:45 AM EST - 06/30/2024 10:45 AM EST Surgery [place] [phone] Flor Velasco MD [facility] [place] [address] COLONOSCOPY, DIAGNOSTIC (WRVU 3.26) 07/27/2024 8:00 AM EST TH Visit (TeleHealth) Gastroenterology at [place] [phone] Unruly Ramirez MD [facility] [place] [address] 08/03/2024 3:00 PM EST Office Visit Neurology at [address] [phone] Melvin Ramírez MD [facility] [place] [address] 08/25/2024 1:45 PM EDT Office Visit Rheumatology at [place] [phone] Keven Church MD [facility] [place] [address] Scheduled Procedures Name Priority Associated Diagnoses Date/Ti me COLONOSCOPY, DIAGNOSTIC (WRV U 3.26) Hematochezia 06/30/2024 9:45 AM EST documented as of this encounter Visit Diagnoses Not on filedocumented in this encounter Care Teams Welfare Investigator Relationship Specialty Start Date End Date Geraldo Gracia DNP [address] [place] [address] PCP - General Family Medicine 10/01/22 documented as of this encounter
--- OUTSIDE RECORDS SUMMARY | 2024-06-23 18:18 | XMS_ITS | Encounter Summary ---
Author Organization [facility] [place] [address] Care Team Providers Care Sports Apparel Internship Name Role Phone Geraldo Gracia [facility] Primary Care Provider Reason for Visit [...] COLONOSCOPY, DIAGNOSTIC (WRVU 3.26) Phong Khan MD [facility] [address] [facility] Referral ID Status Reason Start Date Expiration Date Visits Re quested Visits Authorized [id number] 1 1 Encounter Details Date Type Department Care Team (Late st Contact Info) Description 07/02/2023 7:03 AM EST - 07/02/2023 9:54 AM EST Hospital Encounter [place] [address] Phong Khan MD [facility] GASTROENTEROLOGY [place], [place] [id number] Discharge Disposition: Home Social History Tobacco Use [...] Sign Reading Time Taken Comments Blood Pressure 120/80 07/02/2023 9:12 AM EST Pulse 98 07/02/2023 9:05 AM EST Temperature 36.4 ??C (97.5 ??F) 07/02/2023 7:09 AM ES T Respiratory Rate 14 07/02/2023 9:30 AM EST Oxygen Saturation 99% 07/02/2023 9:20 AM EST Inhaled Oxygen Concentration - - [...] occurs, please contact your Doctor. Please call [phone] before 8pm Mon-Fri with problems, questions or concerns. If you call after 8pm or on weekends, call the Hospital at [phone] and ask to speak to the Marine Steam Fitter children's institution attendant and the clay machine operator will contact that person for [...] any problems. Where can you learn more? [facility] View your After Visit Summary and more online at [email or web address] If you would like to provide feedback about your hospital experience, please call the Office of Patient and Family Relations at . If you have received this After Visit Summary in error, please immediately return it in person to the department, or notify the [facility] Privacy Office by calling toll free at between the hours of 8AM and 5PM to arrange for our retrieval of the documents at no cost to you. Content Version: 12.2 ?? [id number] [employer]. Care instructions adapted under license by [facility]. If you have questions about a medical condition or this instruction, always ask your healthcare professional. [employer] disclaims any warranty or liability for your [...] complication. Informed Consent signed by patient (or community engagement representative). documented in this encounter Plan of Treatment Upcoming Encounters Date Type Department Care Team (Latest Contact Info) Description 06/30/2024 9:45 AM EST Hospital Encounter [place] [address] Flor Velasco MD [facility] [place] [address] 06/30/2024 9:45 AM EST - 06/30/2024 10:45 AM EST Surgery [place] [address] Flor Velasco MD [facility] [place] [address] COLONOSCOPY, DIAGNOSTIC (WRVU 3.26) 07/27/2024 8:00 AM EST TH Visit (TeleHealth) [place] [address] Unruly Ramirez MD [facility] [place] [address] 08/03/2024 3:00 PM EST Office Visit Neurology at [facility] [address] [place] [address] Melvin Ramírez MD [facility] [place] [address] 08/25/2024 1:45 PM EDT Office [place] [address] Keven Church MD [facility] [place] [address] Scheduled Procedures Name Priority Associated Diagnoses Date/Ti [...] 9:04 AM EST Upper Gi Endoscopy, Biopsy ([id number]) 07/02/2023 8:15 AM EST Dysphagia, unspecified type Colonoscopy, Biopsy ([id number]) 07/02/2023 8:15 AM EST Dysphagia, unspecified type Up Gi Endoscopy, Ball Dil, 30Mm ([id number]) 07/02/2023 8:15 AM EST Dysphagia, unspecified type UPPER GI ENDOSCOPY Routine 07/02/2023 8: 05 AM EST COLONOSCOPY Routine 07/02/2023 8:04 AM EST documented in this encounter Results * Surgical Pathology Report (07/02/2023 9:04 AM EST) Final Diagnosis [id number] ? Location: 4T; EA08; A The signing [...] Jeannine Verified: ??07/14/2023 13:16 ??Pathologist Performed at: ??-[facility] Dept. of Pathology, [place] [address] Audio Production Manager: Yesi Liu MD, FCAP, ??CLIA Certificate: [id number] SPECIMEN(S) SUBMITTED A - distal esophagus, biopsy [...] labeled C1. ??sns 07/14/2023 1:16 PM EST [facility] GI Biopsy 07/02/2023 9:04 AM EST 07/02/2023 9:04 AM EST GI Biopsy 07/02/2023 9:04 AM EST 07/02/2023 9:04 AM EST GI Biopsy 07/02/2023 9:04 AM EST 07/02/2023 9:04 AM EST Phong Khan MD PATHOLOGY/CYTOLOG Y ORDERABLES [facility] [address] [place] [address] * Specimen to Pathology (07/02/2023 9:04 AM EST) AP Specimen 07/02/2023 9:04 AM EST 07/02/2023 9:04 AM EST Narrative [facility] - 07/02/2023 9:04 AM EST Specimen requisition ordered. ??Separate Pathology report to follow Phong Khna MD PATHOLOGY/CYTOLOG Y ORDERABLES Performing Organization Address City/[facility] [address]/ZIP Co de Phone Number [facility] [place] [address] * Specimen to Pathology (07/02/2023 9:04 AM EST) AP Specimen 07/02/2023 9:04 AM EST 07/02/2023 9:04 AM EST Narrative [facility] - 07/02/2023 9:04 AM EST Specimen requisition ordered. ??Separate Pathology report to follow Phong Khan MD PATHOLOGY/CYTOLOG Y ORDERABLES Performing Organization Address City/[facility] [address]/ZIP Co de Phone Number [facility] [place] [address] * Specimen to Pathology (07/02/2023 9:04 AM EST) AP Specimen 07/02/2023 9:04 AM EST 07/02/2023 9:04 AM EST Narrative [facility] - 07/02/2023 9:04 AM EST Specimen requisition ordered. ??Separate Pathology report to follow Phong Khan MD PATHOLOGY/CYTOLOG Y ORDERABLES [facility] [place] [address] * UPPER GI ENDOSCOPY (07/02/2023 8:05 AM EST) UPPER GI ENDOSCOPY [facility] Endoscopy ___ Procedure Date: 07/02/2023 8:05 AM ? Patient Name: Karolina Olivas ? N: [id number] ? Date of : 1975 ? Age: 48 ? Order #: [id number] ? Instrument Name: [id number]- [id number] ? ___ Procedure: ? Upper GI endoscopy [...] procedure, including non-ashraf portions. ? Dr. Deon Kahn __ Phong Khan MD 07/02/2023 9:07:44 AM Number of Addenda: 0 Note Initiated On: 07/02/2023 8:05 AM PROVATION 07/02/2023 8:05 AM EST Geraldo Gracia DNP GENERAL SURGICAL OR DERABLES PROVATION * COLONOSCOPY (07/02/2023 8:04 AM EST) COLONOSCOPY [facility] Endoscopy Procedure Date: 07/02/2023 8:04 AM ? Patient Name: Karolina Olivas ? Date of : 1975 ? Age: 48 ? Order #: [id number] ? Instrument Name: [id number]- [id number] ? Procedure: ? Colonoscopy Indications: ? Screening for colorectal malignant ? neoplasm Patient Profile: ? This is a 48 year old female. Refer ? to note in patient chart for ? documentation of history and ? physical. Providers: ? Phong Khan MD, Klaudia ? Kirit Buckner Referring : ?Geraldo Reji Samia Requesting Provider: ?? Herlinda Khoury Kady Medicines: [...] preparation was evaluated ? using the BBPS ([place] Bowel ? Preparation Scale) with scores of: [...] PROVATION documented in this encounter Visit Diagnoses Not on filedocumented in this encounter Administered Medications Inactive Administered Medications - up to 3 most recent administrations Medication Order MAR Action Action Date Dose Rate Site lactated ringers infusion 100 mL/hr, Intravenous, CONTINUOUS, Starting on Wed07/02/23 at 0730, Until Wed07/02/23 at 0944, Endoscopy (Day of Procedure) New Bag 07/02/2023 7:22 AM EST 100 mL/hr 100 mL/hr documented in this encounter Active and Recently [...] RN) documented in this encounter Care Teams Sports Apparel Internship Relationship Specialty Start Date End Date Geraldo Gracia DNP [address] [place] [address] PCP - General Family Medicine 10/01/22 documented as of this encounter
--- OUTSIDE RECORDS SUMMARY | 2024-06-23 18:18 | XMS_ITS | Encounter Summary ---
[place] [address] Care Team Providers Care Linux Architect Name Role Phone Geraldo Gracia DNP Primary Care Provider Encounter Details Date Type Department Care Team (Latest Contact Info) Description 03/27/2024 Travel Social History Tobacco Use Types Packs/Day Years Used Date Smoking Tobacco: Former Cigarettes Q uit: 1992 Smokeless Tobacco: Never Comments:In high school smok ed maybe a 0.5 of a cigarette daily Alcohol Use Standard Drinks/Week Comments Yes 0 (1 standard drink = 0.6 oz pur e alcohol) < once a month [facility] Inpatient Questions Answer Date Recorded [...] 9:45 AM EST Hospital Encounter Gastroenterology at [place] [phone] Flor Velasco MD [facility] [place] [address] 06/30/2024 9:45 AM EST - 06/30/2024 10:45 AM EST Surgery Gastroenterology at [address] Flor Velasco MD [facility] [place] [address] COLONOSCOPY, DIAGNOSTIC (WRVU 3.26) 07/27/2024 8:00 AM EST TH Visit (TeleHealth) Gastroenterology at [place] [phone] Unruly Ramirez MD [facility] [place] [address] 08/03/2024 3:00 PM EST Office Visit Neurology at [address] [phone] Melvin Ramírez MD [facility] [address] [place] [address] 08/25/2024 1:45 PM EDT Office Visit Rheumatology at [place] [phone] Keven Church MD [facility] RHEUMAT[place] [address] Scheduled Procedures Name Priority Associated Diagnoses Date/Ti me COLONOSCOPY, DIAGNOSTIC (WRV U 3.26) Hematochezia 06/30/2024 9:45 AM EST documented as of this encounter Visit Diagnoses Not on filedocumented in this encounter Care Teams Linux Architect Relationship Specialty Start Date End Date Geraldo Gracia DNP [address] [place] [address] [place] [address] PCP - General Family Medicine 10/01/22 documented as of this encounter
--- OUTSIDE RECORDS SUMMARY | 2024-06-23 18:18 | XMS_ITS | Encounter Summary ---
[place] [address] Care Team Providers Care Poly Operator Name Role Phone Geraldo Gracia DNP Primary Care Provider [phone]- [phone] Reason for Visit * Reason Comments Prior Authorization Emgality 120 mg/mL A utoinjector Encounter Details Date Type Department Care Team (Late st Contact Info) Description 02/24/2024 Specialty [place] [phone] Beka Valdez, RESTAURANT ASSISTANT MANAGER Social History Tobacco Use Types Packs/Day Years Used Date Smoking Tobacco: Former Cigarettes Q uit: 1992 Smokeless Tobacco: Never Comments:In high school smok ed maybe a 0.5 of a cigarette daily Alcohol Use Standard Drinks/Week Comments Yes 0 (1 standard drink = 0.6 oz pur e alcohol) < once a month [facility] Inpatient Questions Answer Date Recorded Does [...] as of this encounter Progress Notes * Beka Valdez, [facility] - 02/24/2024 4:20 PM EDT [facility], Prior Authorization Approval Medication Name: EMGALITY PEN 120 MG/ML SUBCUTANEOUS PEN INJECTOR Medication ID: [id number] Approval Dates: 02/24/2024 to 02/23/2025 Insurance requirements/notes: None Other Notes: None Case/Reference #: [id number] Approval notification Received via: Telephone Copay: Copay assistance: Copay Notes: Insurance mandated Pharmacy: Fillable at [facility]: Yes Patient Notified: No Pharmacy staff will be reaching out to the patient to inform them of their medication's approval [facility]. If applicable, a pharmacist will speak with the patient to offer our specialty pharmacy services and to arrange delivery of their medication. Beka Valdez [facility] 02/24/24 4:29 PM [facility], Medication Prior Authorization Submission Patient: Karolina Olivas Patient : 1975 Patient Address: [address] [place] [phone] (home) Medication Name: EMGALITY PEN 120 MG/ML SUBCUTANEOUS PEN INJECTOR Medication ID: [id number] Subscriber Insurance: [employer] (ADV) Subscriber Insurance Comment: Fax: Physician: DAPHNEY ESTRADA Physician Comment: Sent Via: Telephone Brasher: Ref/Case/PA#: Medication Strength Frequency Requested: Inject one pen's contents once every 30 days Qty/Day Supply: 06/27 New Start: Renewal Diagnosis & ICD-10 Code: G43.009 - Migraine without Aura, not Intractabe, without Status Migrainosus Patient Notified: No Submission Notes: - PA submitted verbally Beka Valdez CP[facility] 02/24/24 4:29 PM documented in this encounter Plan of Treatment Upcoming Encounters Date Type Department Care Team (Latest Contact Info) Description 06/30/2024 9:45 AM EST Hospital Encounter Gastroenterology at [place] [phone] Flor Velasco MD [facility] [place] [address] 06/30/2024 9:45 AM EST - 06/30/2024 10:45 AM EST Surgery Gastroenterology at [place] [phone] Flor Velasco MD [facility] [place] [address] COLONOSCOPY, DIAGNOSTIC (WRVU 3.26) 07/27/2024 8:00 AM EST TH Visit (TeleHealth) Gastroenterology at [place] [phone] Unruly Ramirez MD [facility] [place] [address] 08/03/2024 3:00 PM EST Office Visit Neurology at [address] [phone] Melvin Ramírez MD [facility] [place] [address] 08/25/2024 1:45 PM EDT Office Visit Rheumatology at [place] [phone] Keven Church MD [facility] [place] [address] Scheduled Procedures Name Priority Associated Diagnoses Date/Ti me COLONOSCOPY, DIAGNOSTIC (WRV U 3.26) Hematochezia 06/30/2024 9:45 AM EST documented as of this encounter Visit Diagnoses Not on filedocumented in this encounter Care Teams Poly Operator Relationship Specialty Start Date End Date Geraldo Gracia DNP [address] [place] [address] PCP - General Family Medicine 10/01/22 documented as of this encounter
--- OUTSIDE RECORDS SUMMARY | 2024-06-23 18:18 | XMS_ITS | Encounter Summary ---
[place] [address] Care Team Providers Care General Magistrate Name Role Phone Geraldo Gracia DNP Primary Care Provider Encounter Details Date Type Department Care Team (Latest Contact Info) Description 01/11/2024 Travel Social History Tobacco Use Types Packs/Day Years Used Date Smoking Tobacco: Former Cigarettes Q uit: 1992 Smokeless Tobacco: Never Comments:In high school smok ed maybe a 0.5 of a cigarette daily Alcohol Use Standard Drinks/Week Comments Yes 0 (1 standard drink = 0.6 oz pur e alcohol) < once a month [facility] Inpatient Questions Answer Date Recorded Does Anyone [...] 9:45 AM EST Hospital Encounter Gastroenterology at [place] [phone] Flor Velasco MD [facility] [place] [address] 06/30/2024 9:45 AM EST - 06/30/2024 10:45 AM EST Surgery Gastroenterology at [address] Flor Velasco MD [facility] [place] [address] COLONOSCOPY, DIAGNOSTIC (WRVU 3.26) 07/27/2024 8:00 AM EST TH Visit (TeleHealth) Gastroenterology at [place] [phone] Unruly Ramirez MD [facility] [place] [address] 08/03/2024 3:00 PM EST Office Visit Neurology at [address] [phone] Melvin Ramírez MD [facility] [address] [place] [address] 08/25/2024 1:45 PM EDT Office Visit Rheumatology at [place] [phone] Keven Church MD [facility] [place] [address] Scheduled Procedures Name Priority Associated Diagnoses Date/Ti me COLONOSCOPY, DIAGNOSTIC (WRV U 3.26) Hematochezia 06/30/2024 9:45 AM EST documented as of this encounter Visit Diagnoses Not on filedocumented in this encounter Care Teams General Magistrate Relationship Specialty Start Date End Date Geraldo Gracia DNP [address] [place] [address] [place] [address] PCP - General Family Medicine 10/01/22 documented as of this encounter
--- OUTSIDE RECORDS SUMMARY | 2024-06-23 18:18 | XMS_ITS | Encounter Summary ---
Author Organization [facility] [place] [address] Care Team Providers Care Land Inspector Name Role Phone Geraldo Gracia DNP Primary Care Provider [phone]- [phone] Reason for Visit * Reason Comments Medication Refill Encounter Details Date Type Department Care Team (Late st Contact Info) Description 12/01/2023 Refill Neurology at [facility] [address] [place] [address] Sheila Wesley, CISCO UNIFIED COMMUNICATIONS ENGINEER Social History Tobacco Use Types Packs/Day Years [...] Telephone Encounter - Cynthia Mckeon RN - 12/01/2023 9:15 AM EDT Prescription Renewal Request Name: Karolina Olivas : 1975 Prescription(s) Requested: Requested Prescriptions Pending Prescriptions Disp Refills galcanezumab-gnlm (Emgality Pen) 120 mg/mL Pen Injector [Pharmacy Med Name: EMGALITY 120MG/ML SOAJ]1 mL 6 Sig: INJECT THE CONTENTS OF ONE PEN (120 MG) SUBCUTANEOUSLY ONCE EVERY 28 DAYS Date of Encounter last in This Dept (If need an appointment send to secretaries to schedule): Elizabeth Banerjee APRN (Nurse Practitioner) Neurology Encounter Date: 10/22/2022 Signed Next Encounter in This Dept: 06/30/2024 Maryjane(IVÁN Chriss) Date of Last Refill (for each medication): 08/23/2023 1:3 Medication category requirements (labs etc): n/a Status of request: Pended Allergies Allergen Reactions Gluten Nausea And Vomiting, Rash and Other (See Comments) Also stomach aches very bad Codeine Phosphate CIS - Nausea/Vomiting Doxycycline Monohydrate CIS - HANDS GET NUMB Cynthia Mckeon RN 12/01/23 9:17 AM documented in this encounter Plan of Treatment Upcoming Encounters Date Type Department Care Team (Latest Contact Info) Description 06/30/2024 9:45 AM EST Hospital Encounter [place] [address] Flor Velasco MD [facility] [place] [address] 06/30/2024 9:45 AM EST - 06/30/2024 10:45 AM EST [place] [address] Flor Velasco MD [facility] [place] [address] COLONOSCOPY, DIAGNOSTIC (WRVU 3.26) 07/27/2024 8:00 AM EST TH Visit (TeleHealth) Gastroenterology at [address] Unruly Ramirez MD [facility] [place] [address] 08/03/2024 3:00 PM EST Office Visit Neurology at [address] [phone] Melvin Ramírez MD [facility] [place] [address] 08/25/2024 1:45 PM EDT Office Visit Rheumatology at [place] [phone] Keven Church MD [facility] [place] [address] Scheduled Procedures Name Priority Associated Diagnoses Date/Ti me COLONOSCOPY, DIAGNOSTIC (WRV U 3.26) Hematochezia 06/30/2024 9:45 AM EST documented as of this encounter Visit Diagnoses Not on filedocumented in this encounter Care Teams Land Inspector Relationship Specialty Start Date End Date Geraldo Gracia DNP [address] [place] [address] PCP - General Family Medicine 10/01/22 documented as of this encounter
--- OUTSIDE RECORDS SUMMARY | 2024-06-23 18:18 | XMS_ITS | Encounter Summary ---
Author Organization [facility] [place] [address] Care Team Providers Care Lpn Name Role Phone Geraldo Gracia DNP Primary Care Provider Reason for Visit * Reason Onset Date Comments Bumped Appointment 09/24/2023 Encounter Details Date Type Department Care Team (Late st Contact Info) Description 09/24/2023 Telephone Neurology at [facility] [address] [place] [phone] None None Bumped Appointment Social History Tobacco Use Types Packs/Day Years [...] encounter Miscellaneous Notes * Telephone Encounter - CheungJaimeBrittany L - 09/24/2023 4:30 PM EDT Scheduling Instructions Provider: Trista Fu APRN or Sheila Wesley APRN Visit Type: Neuro Re Est Headache (paste MENDOZA Instructions or manually enter): Next Available- Add to Wait List Appt Note: IVÁN-Former Chriss Patient Additional Info Needed: Please schedule from canceled 11/02/2023 annual follow up appointment documented in this encounter Plan of Treatment Upcoming Encounters Date Type Department Care Team (Latest Contact Info) Description 06/30/2024 9:45 AM EST Hospital Encounter [place] [address] Flor Velasco MD [facility] [place] [address] 06/30/2024 9:45 AM EST - 06/30/2024 10:45 AM EST [place] [address] Flor Velasco MD [facility] [place] [address] COLONOSCOPY, DIAGNOSTIC (WRVU 3.26) 07/27/2024 8:00 AM EST TH Visit (TeleHealth) [place] [address] Unruly Ramirez MD [facility] [place] [address] 08/03/2024 3:00 PM EST Office Visit Neurology at [address] [address] Melvin Ramírez MD [facility] DR [place] [address] 08/25/2024 1:45 PM EDT Office Visit Rheumatology at [facility] [place] [address] Keven Church MD [facility] [place] [address] Scheduled Procedures Name Priority Associated Diagnoses Date/Ti me COLONOSCOPY, DIAGNOSTIC (WRV U 3.26) Hematochezia 06/30/2024 9:45 AM EST documented as of this encounter Visit Diagnoses Not on filedocumented in this encounter Care Teams Lpn Relationship Specialty Start Date End Date Geraldo Gracia DNP [address] [place] [address] PCP - General Family Medicine 10/01/22 documented as of this encounter
--- OUTSIDE RECORDS SUMMARY | 2024-06-23 18:18 | XMS_ITS | Encounter Summary ---
[place] [address] Care Team Providers Care Assistant Professor Of Music Name Role Phone Geraldo Gracia DNP Primary Care Provider Encounter Details Date Type Department Care Team (Late st Contact Info) Description 11/15/2023 8:30 AM EDT Office [place] [address] Destiney Blanco, DO CREST (calcinosis, Raynaud's phenomenon, esophageal dysfunction, [...] pur e alcohol) < once a month [facility] Inpatient Questions Answer Date Recorded [...] Sign Reading Time Taken Comments Blood Pressure 100/49 11/15/2023 8:24 AM EDT Pulse 73 11/15/2023 8:24 AM EDT Temperature 36.5 ??C (97.7 ??F) 11/15/2023 8:24 AM ED T Respiratory Rate - - Oxygen Saturation 100% 11/15/2023 8:24 AM EDT Inhaled Oxygen Concentration - - Weight 49.2 kg (108 lb 7.5 oz) 11/15/2023 8:24 A M EDT Height - - Body Mass Index 19.83 06/17/2023 10:59 AM EST documented in this encounter Progress Notes * Destiney Blanco, DO - 11/15/2023 8:30 AM EDT Rheumatology Outpatient Follow Up Note [...] given cream for improvement - ARNULFO at [facility] 1:320 speckled and cytoplasmic, COLBY negative, dsDNA [...] vaccines. Eye exam 08/2022: normal Interval History: Joints are okay, reports intermittent stiffness in the hands, elbow, no double pain at night. No significant swelling, difficulty making a fist or significant morning stiffness lasting over 1 hour. Feels joints are stable. Raynaud's has been improved with the warmer weather. Had PFTs done today normal -Prescribed meloxicam at last visit to help with joint arthralgias but patient has not been taking.Notes she continues to have a lot of intermittent abdominal pain over the last few months, diffuse,cramping does note she is only having a bowel movement once a week. She is following with GI, they have recommended MiraLAX twice a day. Patient does not feel that is too helpful, she has reached outto them but she is transitioning to a new provider and has does not an appointment yet. Noted a small patch of dry skin over her right scapula. Has been there for the last few months. ROS (positives in bold): Gen: no fevers, no chills, no night sweats Pulm: no SOB CV: no CP Abd: abd pain, no nausea, no vomiting, no diarrhea MSK: see HPI Meds and Allergies: Reviewed in eDH Physical exam: BP 100/49 Pulse 73 Temp 36.5 ??C (97.7 ??F) (Temporal) Wt 49.2 kg (108 lb 7.5 oz) SpO2 100% BMI 19.83 kg/m?? Gen: well appearing, alert and oriented x 3, nad HEENT: NCAT, EOMI, moist mucous membranes, no oral ulcers, normal sclerae Heart: regular rate, no murmurs, rubs or gallops Lungs: clear to auscultation b/l Abd: soft, +bs, NT/ND Skin: warm and dry, small circular patch of dry skin over right scapula, no thickening, no hyperpigmentation Nails: no nail pitting Joints: Shoulders: FROM, non-tender to palpation Elbows:FROM Wrists: FROM, no swelling, non-tender Hands: No synovitis, no MCP compression tenderness, full claw and fist Hips: FROM, no tenderness Knees: FROM, no effusion, no tenderness Ankles: FROM, non-tender, no effusion Labs/Studies: Reviewed. Assessment/Plan: 48 y.o. female PMH [...] on her face around lips and forehead. She she is also noted a new area of skin meter changes records clerk the right scapula, suspect may be underlying tinea. Still having joint arthralgias. On exam today there is no synovitis. Will reassess her antibody profile, if her picture appears more lupus-like I would recommend trying Benlysta. She was unable to tolerate Mobic. In the past they have tried CellCept. She is unable to try methotrexate due to liver fibrosis. She is following with GI for constipation, on and the manifestations of crest is GI dysmotility, but c ertainly could be contributing to her constipation. Plan -CBC CMP ESR CRP UA dsDNA C3, C4, ARNULFO, anticrest antibody -Continue Plaquenil 200 mg daily -Continue duloxetine 30 mg daily -Follow-up 5 months Patient was discussed with Dr. Harris Blanco DO Rheumatology Fellow Pager: [phone] * Shay Blanco MD - 11/15/2023 8:30 AM EDT .wr documented in this encounter Plan of Treatment Upcoming Encounters Date Type Department Care Team (Latest Contact Info) Description 06/30/2024 9:45 AM EST Hospital Encounter [place] [address] [facility] [place] [address] 06/30/2024 9:45 AM EST - 06/30/2024 10:45 AM EST Surgery [place] [address] [facility] [place] [address] COLONOSCOPY, DIAGNOSTIC (WRVU 3.26) 07/27/2024 8:00 AM EST TH Visit (TeleHealth) [place] [phone] [facility] [place] [address] 08/03/2024 3:00 PM EST Office Visit Neurology at [address] [phone] Melvin Ramírez MD [facility] [place] [address] 08/25/2024 1:45 PM EDT Office [place] [phone] [facility] [place] [address] Scheduled Procedures Name Priority Associated Diagnoses Date/Ti me COLONOSCOPY, DIAGNOSTIC (WRV U 3.26) Hematochezia 06/30/2024 9:45 AM EST documented as of this encounter Results * CRP, acute inflammation (11/15/2023 9:41 AM EDT) [facility] C-Reactive Protein <3.0 <=4.9 mg/L [facility] Blood 11/15/2023 9:41 AM EDT 11/15/2023 10:06 AM EDT Narrative Resulting Agency Comment Spec In Lab Shay Blanco MD CHEMISTRY ORDERABLES [facility] [place] [address] * Sedimentation rate (11/15/2023 9:41 AM EDT) [facility] Sedimentation Rate Automated 7 2 - 37 mm/hr [facility] Comment: Effective May 10, 2019 new capillary photometric technology has resulted in a change in reference ranges. It is recommended that each ESR result be reviewed with its own age appropriate reference range. Blood 11/15/2023 9:41 AM EDT 11/15/2023 10:06 AM EDT Narrative Resulting Agency Comment Spec In Lab Shay Blanco MD HEMATOLOGY ORDERABLE S [facility] [place] [address] * (ABNORMAL) Extractable Nuclear Antigen (COLBY) Ab (11/15/2023 9:41 AM EDT) SS-A/Ro Ab 0.50 <=10.00 unit/mL [facility] Comment: <7 negative 7-10 equivocal >10 positive The SS-A antibody result was generated using fluoroenzyme immunoassay on the Phadia 250 analyzer. the semi-quantitative test is designed to detect IgG antibodies in human serum that are reactive to the SS-A (Ro) protein. SS-B/La Ab 0.60 <=10.00 unit/mL [facility] Comment: <7 negative 7-10 equivocal >10 positive The SS-B antibody result was generated using fluoroenzyme immunoassay on the Phadia 250 analyzer. the semi-quantitative test is designed to detect IgG antibodies in human serum that are reactive to the SS-B (La) protein. Scl-70 Ab 0.80 <=10.00 unit/mL [facility] Comment: <7 negative 7-10 equivocal >10 positive The Scl-70 antibody result was generated using fluoroenzyme immunoassay on the Phadia 250 analyzer. the semi-quantitative test is designed to detect IgG antibodies in human serum that are reactive to the Scl-70 protein. Sm ([place]) Ab <0.70 <=10.00 unit/mL [facility] Comment: <7 negative 7-10 equivocal >10 positive The Sm antibody result was generated using fluoroenzyme immunoassay on the Phadia 250 analyzer. the semi-quantitative test is designed to detect IgG antibodies in human serum that are reactive to the Sm protein. U1RNP Ab 0.90 <=10.00 unit/mL [facility] Comment: <5 negative 5-10 equivocal >10 positive The U1RNP antibody result was generated using fluoroenzyme immunoassay on the Phadia 250 analyzer. the semi-quantitative test is designed to detect IgG antibodies in human serum that are reactive to the U1RNP protein. Centromere Ab 16.00(H) <=10.00 unit/mL [facility] Comment: <7 negative 7-10 equivocal >10 positive The CENP antibody result was generated using fluoroenzyme immunoassay on the Phadia 250 analyzer. the semi-quantitative test is designed to detect IgG antibodies in human serum that are reactive to the Centromere B protein. Ivory-1 Ab 0.40 <=10.00 unit/mL [facility] Comment: <7 negative 7-10 equivocal >10 [...] Blanco MD LAB SEND OUT ORDERAB LES [facility] [place] [address] * DNA Antibody (Double-Stranded) (11/15/2023 9:41 AM EDT) dsDNA Ab 1.9 <=15.0 IU/mL [facility] Comment: <10 negative 10-15 equivocal >15 positive This dsDNA antibody result was generated using a fluoroenzyme immunoassay on the Phadia 250 analyzer. This quantitative test is designed to detect IgG antibodies directed against double stranded DNA in human serum. The presence of antibodies that recognize dsDNA is a highly specific marker for systemic lupus erythematosus. Please note that as of 03/24/2022 that this testing is performed by the Special Chemistry Laboratory at [facility]. This change in testing location is associated with a change is testing method and reference intervals. Please review the results of this test in association with the posted reference intervals. Blood 11/15/2023 9:41 AM EDT 11/16/2023 7:25 AM EDT Narrative Resulting Agency Comment Spec In Lab Shay Blanco MD LAB SEND OUT ORDERAB LES [facility] [place] [address] * Comprehensive metabolic panel (non-fasting) (11/15/2023 9:41 AM EDT) Glucose 86 65 - 199 mg/dL [facility] Comment:Diabetes: >=200 mg/d L plus symptoms Blood Urea Nitrogen 10 8 - 18 mg/dL [facility] Creatinine 0.72 0.70 - 1.20 mg/dL [facility] Sodium 139 135 - 145 mmol/L [facility] Potassium 3.9 3.5 - 5.0 mmol/L [facility] Comment: Please note: ??Patients with WBC >100,000 may have falsely elevated Potassium levels. ??For accurate Potassium quantification in these patients send serum separator tube (gold top) for subsequent determinations. ??Contact the Clinical Chemistry Laboratory if there are any questions. Chloride 101 98 - 107 mmol/L [facility] Carbon Dioxide 29 22 - 31 mmol/L [facility] Anion Gap 9 5 - 15 mmol/L [facility] Calcium 9.8 8.5 - 10.5 mg/dL [facility] Protein, Total 7.4 6.1 - 8.0 g/dL [facility] Albumin 4.8 3.2 - 5.2 g/dL [facility] Aspartate Aminotransferase 20 0 - 30 unit/L [facility] Alanine Aminotransferase 16 0 - 30 unit/L [facility] Alkaline Phosphatase 54 35 - 105 unit/L [facility] Bilirubin, Total 0.4 0.2 - 1.3 mg/dL [facility] Est Glomerular Filtration Rate 102 >=60 mL/min/1. 73 m?? [facility] Comment: This patient's estimated GFR [...] In Lab Shay Blanco MD CHEMISTRY ORDERABLES [facility] [place] [address] * (ABNORMAL) Urinalysis without microscopic (11/15/2023 9:41 AM EDT) Glucose, Urine Dipstick Negative Negative mg/dL [facility] Protein, Urine Dipstick Trace(A) Negative mg/dL [facility] Bilirubin, Urine Dipstick Negative Negative mg/dL [facility] Comment: Clinical correlation required for positive Urine Bilirubin results as false positive may occur with some drugs and drug related products. If a false positive is suspected a serum total bilirubin should be considered if clinically indicated. Urobilinogen, Urine Dipstick Normal Normal mg/dL [facility] pH, Urn (dipstick) 7.5 5.0 - 8.0 [facility] Blood, Urine Dipstick Negative Negative mg/dL [facility] Ketone, Urine Dipstick Trace(A) Negative mg/dL [facility] Nitrite, Urine Dipstick Negative Negative [facility] Leukocytes, Urine Dipstick Negative Negative [facility] Appearance, Urine Dipstick Clear Clear [facility] Specific [place] Urine Automated 1.018 1.005 - 1.030 [facility] Color, Urine Dipstick Yellow Yellow [facility] Urine 11/15/2023 9:41 AM EDT 11/15/2023 9:52 AM EDT Narrative Resulting Agency Comment Spec In Lab Shay Blanco MD URINE ORDERABLES Performing Organization Address City/[facility]/ZIP Co de Phone Number [facility] [place] [address] * C4 Complement (11/15/2023 9:41 AM EDT) Complement C4 11 10 - 40 mg/dL [facility] Blood 11/15/2023 9:41 AM EDT 11/15/2023 10:06 AM EDT Narrative Resulting Agency Comment Spec In Lab Shay Blanco MD CHEMISTRY ORDERABLES Performing Organization Address [facility] Co de Phone Number [facility] [place] [address] * (ABNORMAL) C3 Complement (11/15/2023 9:41 AM EDT) Complement C3 85(L) 90 - 180 mg/dL [facility] Blood 11/15/2023 9:41 AM EDT 11/15/2023 10:06 AM EDT Narrative Resulting Agency Comment Spec In Lab Shay Blanco MD CHEMISTRY ORDERABLES Performing Organization Address [facility] Co de Phone Number [facility] [place] [address] * TSH (11/15/2023 9:41 AM EDT) Thyroid Stimulating Hormone 2.31 0.27 - 4.20 mcIU/mL [facility] Comment: Reference Interval (mcIU/mL): Females: ??First Trimester: 0.23-3.88 ??Second Trimester: 0.22-3.90 ??Third Trimester: 0.44-4.66 Blood 11/15/2023 9:41 AM EDT 11/15/2023 10:06 AM EDT Narrative Resulting Agency Comment Spec In Lab Shay Blanco MD CHEMISTRY ORDERABLES [facility] [place] [address] documented in this encounter Visit Diagnoses Diagnosis CREST (calcinosis, Raynaud's phenomenon, esophageal dysfunction, sclerodactyly, telangiectasia) Systemic sclerosis Undifferentiated connective tissue disease Unspecified diffuse connective tissue disease Other forms of systemic lupus erythematosus, unspecified organ involvement status Hematochezia Blood in stool documented in this encounter Care Teams Assistant Professor Of Music Relationship Specialty Start Date End Date Geraldo Gracia DNP [address] [place] [address] PCP - General Family Medicine 10/01/22 documented as of this encounter
--- OUTSIDE RECORDS SUMMARY | 2024-06-23 18:18 | XMS_ITS | Encounter Summary ---
Author Organization [facility] Address [facility] [place] [address] Care Team Providers Care Java Enterprise Architect Name Role Phone Geraldo Gracia DNP Primary Care Provider Encounter Details Date Type Department Care Team (Late st Contact Info) Description 04/03/2024 Telephone [place] [phone] Keven Church MD [facility] [place] [address] Social History Tobacco Use Types Packs/Day Years Used Date Smoking Tobacco: Former Cigarettes Q uit: 1992 Smokeless Tobacco: Never Comments:In high school smok ed maybe a 0.5 of a cigarette daily Alcohol Use Standard Drinks/Week Comments Yes 0 (1 standard drink = 0.6 oz pur e alcohol) < once a month [facility] Inpatient Questions Answer Date Recorded Does [...] encounter Miscellaneous Notes * Telephone Encounter - Gregoria Lopez RN - 04/03/2024 1:29 PM EST Copied from CRM #[id number]. Topic: Specialty Dept CRMs - Generic Call >> Apr 03, 2024 10:35 AM Rosa Cotton wrote: Specialist: Luis Bradley Relationship (if other than patient-full name): self Reason for Call: Patient calling back after 03/27/24 OV and 03/31/24 My message regarding provider reviewing patient with Dr Rockwell to discuss next best steps. She is requesting call back to advisestatus of review. documented in this encounter Plan of Treatment Upcoming Encounters Date Type Department Care Team (Latest Contact Info) Description 06/30/2024 9:45 AM EST Hospital Encounter [place] [address] Flor Velasco MD [facility] [place] [address] 06/30/2024 9:45 AM EST - 06/30/2024 10:45 AM EST Surgery [place] [address] Flor Velasco MD [facility] [place] [address] COLONOSCOPY, DIAGNOSTIC (WRVU 3.26) 07/27/2024 8:00 AM EST TH Visit (TeleHealth) [place] [address] Unruly Ramirez MD [facility] [place] [address] 08/03/2024 3:00 PM EST Office Visit Neurology at [facility] [address] [place] [address] Melvin Ramírez MD [facility] [place] [address] 08/25/2024 1:45 PM EDT Office [place] [address] Keven Church MD [facility] [place] [address] Scheduled Procedures Name Priority Associated Diagnoses Date/Ti me COLONOSCOPY, DIAGNOSTIC (WRV U 3.26) Hematochezia 06/30/2024 9:45 AM EST documented as of this encounter Visit Diagnoses Not on filedocumented in this encounter Care Teams Java Enterprise Architect Relationship Specialty Start Date End Date Geraldo Gracia DNP [address] [place] [id number] PCP - General Family Medicine 10/01/22 documented as of this encounter
--- OUTSIDE RECORDS SUMMARY | 2024-06-23 18:18 | XMS_ITS | Encounter Summary ---
[place] [address] Care Team Providers Care It Systems Engineer Name Role Phone Geraldo Gracia DNP Primary Care Provider Encounter Details Date Type Department Care Team (Latest Contact Info) Description 03/27/2024 12:55 PM EDT Laboratory Appointment Lab [address] [place] [phone] Other forms of systemic lupus erythematosus, unspecified [...] 9:45 AM EST Hospital Encounter [place] [phone] Flor Velasco MD [facility] [place] [address] 06/30/2024 9:45 AM EST - 06/30/2024 10:45 AM EST Surgery [place] [phone] Flor Velasco MD [facility] [place] [address] COLONOSCOPY, DIAGNOSTIC (WRVU 3.26) 07/27/2024 8:00 AM EST TH Visit (TeleHealth) Gastroenterology at [place] [phone] Unruly Ramirez MD [facility] [place] [address] 08/03/2024 3:00 PM EST Office Visit Neurology at [address] [phone] Melvin Ramírez MD [facility] [place] [address] 08/25/2024 1:45 PM EDT Office [place] [phone] Keven Church MD [facility] [place] [address] Scheduled Procedures Name Priority Associated Diagnoses Date/Ti me COLONOSCOPY, DIAGNOSTIC (WRV U 3.26) Hematochezia 06/30/2024 9:45 AM EST documented as of this encounter Procedures Procedure Name Priority Date/Time Associated Diagnosis Comments DSDNA ANTIBODY Routine 03/27/2024 12:01 PM EDT [...] status documented in this encounter Results * dsDNA Antibody (03/27/2024 12:01 PM EDT) dsDNA Ab 0.9 <=15.0 IU/mL 03/28/2024 12:44 PM EDT [facility] Blood VENOUS BLOOD SPECIMEN / Unknown Venipuncture / Unknown 03/27/2024 12:01 PM EDT 03/27/2024 12:01 PM EDT Narrative [facility] - 03/28/2024 12:44 PM EDT Reference Range: <10 - Negative 10-15 - Equivocal >15 - Positive This dsDNA antibody result was generated using a fluoroenzyme immunoassay on the [employer] 250 analyzer. This quantitative test is designed to detect IgG antibodies directed against double stranded DNA in human serum. The presence of antibodies that recognize dsDNA is a highly specific marker for systemic lupus erythematosus. Luis Bradley MD IMMUNOLOGY ORDERABLE S Performing Organization Address City/Va Hospital/ZIP Co de Phone Number [facility] [place] [address] * Protein/Creatinine Ratio, urine (03/27/2024 12:01 PM EDT) Protein, Urine 8 0 - 12 mg/dL 03/27/2024 1:05 PM EDT [facility] Creatinine, Urine 82 mg/dL 03/27/2024 1:05 PM EDT [facility] Protein / Creatinine Ratio, Urine 0.1 ratio 03/27/2024 1:05 PM EDT [facility] Urine URINE SPECIMEN / Unknown Non Blood Collection / Unknown 03/27/2024 12:01 PM EDT 03/27/2024 12:01 PM EDT Luis Bradley MD URINE ORDERABLES Performing Organization Address [facility]/Va Hospital/[facility] [place] [address] * Sedimentation rate (03/27/2024 12:01 PM EDT) Sedimentation Rate Automated 3 2 - 37 mm/hr 03/27/2024 1:43 PM EDT [facility] Blood VENOUS BLOOD SPECIMEN / Unknown Venipuncture / Unknown 03/27/2024 12:01 PM EDT 03/27/2024 12:01 PM EDT Luis Bardley MD HEMATOLOGY ORDERABLE S Performing Organization Address City/Va Hospital/ZIP Co de Phone Number [facility] [place] [address] * CRP, acute inflammation (03/27/2024 12:01 PM EDT) [facility] C-Reactive Protein <3.0 <=4.9 mg/L 03/27/2024 1:03 PM EDT [facility] Blood VENOUS BLOOD SPECIMEN / Unknown Venipuncture / Unknown 03/27/2024 12:01 PM EDT 03/27/2024 12:01 PM EDT Luis Bradley MD CHEMISTRY ORDERABLES [facility] [place] [address] * (ABNORMAL) CBC (with Diff) (03/27/2024 12:01 PM EDT) [facility] White Blood Cell 5.81 4.00 - 9.50 x10(3)/mc L 03/27/2024 2:03 PM EDT [facility] Red Blood Cell 4.26 4.00 - 5.21 x10(6)/mc L 03/27/2024 2:03 PM EDT [facility] Hemoglobin 13.7 11.7 - 15.5 g/dL 03/27/2024 2:03 PM EDT [facility] Hematocrit 40.9 35.7 - 45.8 % 03/27/2024 2:03 PM EDT [facility] Mean Cell Volume 96.0(H) 82.6 - 94.4 fL 03/27/2024 2:03 PM EDT [facility] Mean Cell Hemoglobin 32.2(H) 27.1 - 32.0 pg 03/27/2024 2:03 PM EDT [facility] Mean Cell Hemoglobin Concentration 33.5 31.7 - 35.0 g/dL 03/27/2024 2:03 PM EDT [facility] Platelet 270 145 - 357 x10(3)/mc L 03/27/2024 2:[facility] Mean Platelet Volume 10.3 7.6 - 12.9 fL 03/27/2024 2:03 PM [facility] RDW Standard Deviation 41.9 37.0 - 46.0 fL 03/27/2024 2:03 PM [facility] RDW coefficient of variation 12.0 11.5 - 14.1 % 03/27/2024 2:03 PM [facility] NRBC% auto 0.0 % 03/27/2024 2:03 PM [facility] NRBC Absolute <0.01 <0.01 x10(3)/mc L 03/27/2024 2:03 PM [facility] Neutrophil % 68.0 % 03/27/2024 2:03 PM [facility] Neutrophil Absolute (ANC) - Automated 3.95 1.70 - 6.10 x10(3)/mc L 03/27/2024 2:03 PM [facility] Lymph % 16.9 % 03/27/2024 2:03 PM [facility] Lymph Absolute 0.98 0.90 - 3.20 x10(3)/mc L 03/27/2024 2:03 PM [facility] Monocyte % 9.1 % 03/27/2024 2:03 PM [facility] Monocyte Absolute 0.53 0.30 - 0.90 x10(3)/mc L 03/27/2024 2:03 PM [facility] Eos % 4.3 % 03/27/2024 2:03 PM [facility] Eos Absolute 0.25 0.00 - 0.40 x10(3)/mc L 03/27/2024 2:03 PM [facility] Basophil % 1.5 % 03/27/2024 2:03 PM [facility] Baso Absolute 0.09 0.00 - 0.10 x10(3)/mc L 03/27/2024 2:03 PM EDT [facility] Immature Gran % 0.2 % 2:03 PM EDT [facility] Immature Gran Absolute <0.04 0.00 - 0.04 x10(3)/mc L 03/27/2024 2:03 PM EDT [facility] Blood VENOUS BLOOD SPECIMEN / Unknown Venipuncture / Unknown 03/27/2024 12:01 PM EDT 03/27/2024 12:01 PM EDT Luis Bradley MD HEMATOLOGY ORDERABLE S [facility] [place] [address] * (ABNORMAL) Comprehensive metabolic panel (03/27/2024 12:01 PM EDT) Glucose 89 65 - 199 mg/dL 03/27/2024 1:03 PM EDT [facility] Comment:Glucose Concentratio n >=200 mg/dL plus symptoms is consistent with Diabetes Mellitus. Blood Urea Nitrogen 7(L) 8 - 18 mg/dL 03/27/2024 1:03 PM EDT [facility] Creatinine 0.70 0.70 - 1.20 mg/dL 03/27/2024 1:03 PM EDT [facility] Sodium 140 135 - 145 mMol/L 03/27/2024 1:03 PM EDT [facility] Potassium 3.9 3.5 - 5.0 mMol/L 03/27/2024 1:03 PM EDT [facility] Chloride 102 98 - 107 mMol/L 03/27/2024 1:03 PM EDT [facility] Carbon Dioxide 28 22 - 31 mMol/L 03/27/2024 1:03 PM EDT [facility] Anion Gap 10 5 - 15 mMol/L 03/27/2024 1:03 PM EDT [facility] Calcium 9.2 8.5 - 10.5 mg/dL 03/27/2024 1:03 PM EDT [facility] Protein, Total 7.6 6.1 - 8.0 g/dL 03/27/2024 1:03 PM EDT [facility] Albumin 4.8 3.2 - 5.2 g/dL 03/27/2024 1:03 PM EDT [facility] Aspartate Aminotransferase 18 <=30 unit/L 03/27/2024 1:03 PM EDT [facility] Alanine Aminotransferase 15 0 - 30 unit/L 03/27/2024 1:03 PM EDT [facility] Alkaline Phosphatase 49 35 - 105 unit/L 03/27/2024 1:03 PM EDT [facility] Bilirubin, Total 0.2 <=1.3 mg/dL 03/27/2024 1:03 PM EDT [facility] Est Glomerular Filtration Rate - Female 106 mL/min/1. 73 m?? 03/27/2024 1:03 PM EDT [facility] Comment: This patient's estimated GFR [...] Fasting Status No 03/27/2024 1:03 PM EDT [facility] Blood VENOUS BLOOD SPECIMEN / Unknown Venipuncture / Unknown 03/27/2024 12:01 PM EDT 03/27/2024 12:01 PM EDT Luis Bradley MD CHEMISTRY ORDERABLES [facility] [place] [address] * Urinalysis with reflex Culture (03/27/2024 12:01 PM EDT) Glucose, Urine Dipstick Negative Negative 03/27/2024 1:18 PM [facility] Protein, Urine Dipstick Negative Negative 03/27/2024 1:18 PM [facility] Bilirubin, Urine Dipstick Negative Negative 03/27/2024 1:18 PM [facility] Comment:Clinical correlation required for positive Urine Bilirubin results as false positive may occur with some drugs and drug related products. If a false positive is suspected a serum total bilirubin should be considered if clinically indicated. Urobilinogen, Urine Dipstick Normal Normal, 0.2 mg/dL, 1.0 mg/dL 03/27/2024 1:18 PM [facility] pH, Urine (dipstick) 7.5 5.0 - 8.0 03/27/2024 1:18 PM [facility] Blood, Urine Dipstick Negative Negative 03/27/2024 1:18 PM [facility] Ketone, Urine Dipstick Negative Negative 03/27/2024 1:18 PM [facility] Nitrite, Urine Dipstick Negative Negative 03/27/2024 1:18 PM [facility] Leukocytes, Urine Dipstick Negative Negative 03/27/2024 1:18 PM [facility] Specific [place] Urine Automated 1.013 1.005 - 1.030 03/27/2024 1:18 PM [facility] Appearance, Urine Dipstick Clear Clear 03/27/2024 1:18 PM [facility] Color, Urine Dipstick Yellow Yellow, Dark Yellow 03/27/2024 1:18 PM [facility] CULTURE ADDED? 03/27/2024 1:18 PM [facility] Urine URINE SPECIMEN OBTAINED BY CLEAN CATCH PROCEDURE / Unknown Non Blood Collection / Unknown 03/27/2024 12:01 PM EDT 03/27/2024 12:01 PM EDT Luis Bradley MD URINE ORDERABLES [facility] [place] [address] * (ABNORMAL) C3 Complement (03/27/2024 12:01 PM EDT) Complement C3 79(L) 90 - 180 mg/dL 03/27/2024 1:06 PM EDT [facility] Blood VENOUS BLOOD SPECIMEN / Unknown Venipuncture / Unknown 03/27/2024 12:01 PM EDT 03/27/2024 12:01 PM EDT Luis Bradley MD CHEMISTRY ORDERABLES Performing Organization Address City/Va Hospital/[place] [address] * C4 Complement (03/27/2024 12:01 PM EDT) Complement C4 10 10 - 40 mg/dL 03/27/2024 1:06 PM EDT [facility] Blood VENOUS BLOOD SPECIMEN / Unknown Venipuncture / Unknown 03/27/2024 12:01 PM EDT 03/27/2024 12:01 PM EDT Luis Bradley MD CHEMISTRY ORDERABLES Performing Organization Address City/Va Hospital/ZIP Co de Phone Number [facility] [place] [address] documented in this encounter Visit Diagnoses Diagnosis Other forms of systemic lupus erythematosus, unspecified organ involvement status Hematochezia Blood in stool documented in this encounter Care Teams It Systems Engineer Relationship Specialty Start Date End Date Geraldo Gracia DNP [address] [place] [phone] PCP - General Family Medicine 10/01/22 documented as of this encounter
--- OUTSIDE RECORDS SUMMARY | 2024-06-23 18:19 | XMS_ITS | Encounter Summary ---
Author Organization [facility] [place] [address] Care Team Providers Care Associate Justice Name Role Phone Geraldo Gracia [facility] Primary Care Provider Encounter Details Date Type Department Care Team (Latest Contact Info) Description 02/11/2023 Travel Social History Tobacco Use Types Packs/Day Years Used Date Smoking Tobacco: Former Cigarettes Q uit: 1992 Smokeless Tobacco: Never Comments:In high school smok ed maybe a 0.5 of a cigarette daily Alcohol Use Standard Drinks/Week Comments Yes 0 (1 standard drink = 0.6 oz pur e alcohol) once a month Sex and Gender Information Value Date Recorded Sex Assigned at Female 08/20/2020 6:21 PM EDT Gender Identity Female 08/20/2020 6:21 PM EDT Sexual Orientation Straight 08/20/2020 6: 21 PM EDT documented as of this encounter Plan of Treatment Upcoming Encounters Date Type Department Care Team (Latest Contact Info) Description 06/30/2024 9:45 AM EST Hospital Encounter [place] [address] Flor Velasco MD [facility] [place] [address] 06/30/2024 9:45 AM EST - 06/30/2024 10:45 AM EST [place] [address] Flor Velasco MD [facility] [place] [address] COLONOSCOPY, DIAGNOSTIC (WRVU 3.26) 07/27/2024 8:00 AM EST TH Visit (TeleHealth) Gastroenterology at [place] [phone] Unruly Ramirez MD [facility] [place] [address] 08/03/2024 3:00 PM EST Office Visit Neurology at [address] [phone] Melvin Ramírez MD [facility] [address] 08/25/2024 1:45 PM EDT Office [place] [address] Keven Church MD [facility] [place] [address] Scheduled Procedures Name Priority Associated Diagnoses Date/Ti me COLONOSCOPY, DIAGNOSTIC (WRV U 3.26) Hematochezia 06/30/2024 9:45 AM EST documented as of this encounter Visit Diagnoses Not on filedocumented in this encounter Care Teams Associate Justice Relationship Specialty Start Date End Date Geraldo Gracia DNP [address] [place] [id number] PCP - General Family Medicine 10/01/22 documented as of this encounter
--- OUTSIDE RECORDS SUMMARY | 2024-06-23 18:19 | XMS_ITS | Encounter Summary ---
Author Organization [facility] [place] [address] Care Team Providers Care Staffing Manager Name Role Phone Geraldo Gracia [facility] Primary Care Provider Encounter Details Date Type Department Care Team (Latest Contact Info) Description 02/01/2023 Travel Social History Tobacco Use Types Packs/Day [...] 9:45 AM EST Hospital Encounter [place] [address] Flor Velasco MD [facility] [place] [address] 06/30/2024 9:45 AM EST - 06/30/2024 10:45 AM EST Surgery [place] [address] Flor Velasco MD [facility] [place] [address] COLONOSCOPY, DIAGNOSTIC (WRVU 3.26) 07/27/2024 8:00 AM EST TH Visit (TeleHealth) Gastroenterology at [place] [phone] Unruly Ramirez MD [facility] [place] [address] 08/03/2024 3:00 PM EST Office Visit Neurology at [address] [phone] Melvin Ramírez MD [facility] [place] [address] 08/25/2024 1:45 PM EDT Office [place] [address] Keven Church MD [facility] [address] Scheduled Procedures Name Priority Associated Diagnoses Date/Ti me COLONOSCOPY, DIAGNOSTIC (WRV U 3.26) Hematochezia 06/30/2024 9:45 AM EST documented as of this encounter Visit Diagnoses Not on filedocumented in this encounter Care Teams Staffing Manager Relationship Specialty Start Date End Date Geraldo Gracia DNP [address] [place] [phone] PCP - General Family Medicine 10/01/22 documented as of this encounter
--- OUTSIDE RECORDS SUMMARY | 2024-06-23 18:19 | XMS_ITS | Encounter Summary ---
Author Organization [facility] Address [facility] [place] [address] Care Team Providers Care Psychologist Personnel Name Role Phone Geraldo Gracia DNP Primary Care Provider [phone] Encounter Details Date Type Department Care Team (Latest Contact Info) Description 02/25/2023 1:16 PM EDT - 02/25/2023 11:59 PM EDT Hospital Encounter XRay at [address] [place] [address] Bernice Espinoza MD [facility] [place] [address] Discharge Disposition: Home Social History Tobacco Use Types Packs/Day Years Used Date Smoking Tobacco: Former Cigarettes Q uit: 1992 Smokeless Tobacco: Never Comments:In high school smok ed maybe a 0.5 of a cigarette daily Alcohol Use Standard Drinks/Week Comments Yes 0 (1 standard drink = 0.6 oz pur e alcohol) < once a month [facility] Inpatient Questions Answer Date Recorded Does Anyone [...] 28 DAYS 1 mL 5 02/17/2023 07/26/2023 mycophenolate (Cellcept) 500 mg tabletIndications:CRE ST syndrome,Medication monitoring encounter Take 2 tablets by mouth 2 times daily. 336 tablet 1 10/01/2022 04/16/[address] (Cymbalta) 30 mg Capsule, Delayed Release(E.C.)Indicati ons:Undifferentiated connective tissue disease,CREST (calcinosis, Raynaud's phenomenon, esophageal dysfunction, sclerodactyly, telangiectasia),Other forms of systemic lupus erythematosus, unspecified organ involvement status Take 1 capsule by mouth daily. 90 tablet 3 06/08/2022 04/16/2023 hydrOXYchloroQUINE (Plaquenil) 200 mg TabletIndications:sys temic lupus erythematosus Take 1 tablet by mouth daily. Indications: systemic lupus erythematosus, an autoimmune disease 90 tablet 3 06/08/2022 04/16/2023 docusate sodium (Colace) 50 mg Capsule Take 50 mg by mouth as needed. 02/10/2024 multivitamin (THERAGRAN) Tablet Take 1 tablet by mouth daily. 11/15/2023 documented as of this encounter Plan of Treatment Upcoming Encounters Date Type Department Care Team (Latest Contact Info) Description 06/30/2024 9:45 AM EST Hospital En[place] [phone] Flor Velasco MD [facility] [place] [address] 06/30/2024 9:45 AM EST - 06/30/2024 10:45 AM EST Surgery Gastroenterology at [place] [phone] Flor Velasco MD [facility] [place] [address] COLONOSCOPY, DIAGNOSTIC (WRVU 3.26) 07/27/2024 8:00 AM EST TH Visit (TeleHealth) Gastroenterology at [place] [phone] Unruly Ramirez MD [facility] [place] [address] 08/03/2024 3:00 PM EST Office Visit Neurology at [address] [phone] Melvin Ramírez MD [facility] [place] [address] 08/25/2024 1:45 PM EDT Office Visit Rheumatology at [place] [phone] Keven Church MD [facility] [place] [address] Scheduled Procedures Name Priority Associated Diagnoses Date/Ti me COLONOSCOPY, DIAGNOSTIC (WRV U 3.26) Hematochezia 06/30/2024 9:45 AM EST documented as of this encounter Procedures Procedure Name Priority Date/Time Associated Diagnosis Comments XR FLUORO NO RAD <1HR - OR USE Routine 02/25/2023 1:19 PM EDT documented in this encounter Results * XR Fluoro No Rad <1Hr - OR Use (02/25/2023 1:19 PM EDT) Narrative Dicom, Auditing User - 02/25/2023 1:21 PM EDT This exam is auto-finalizing. No interpretation was done. Bernice Espinoza MD IMG FLUORO ORDERABL ES documented in this encounter Visit Diagnoses Not on filedocumented in this encounter Care Teams Psychologist Personnel Relationship Specialty Start Date End Date Geraldo Gracia DNP [address] [place] [id number] PCP - General Family Medicine 10/01/22 documented as of this encounter
--- OUTSIDE RECORDS SUMMARY | 2024-06-23 18:19 | XMS_ITS | Encounter Summary ---
[place] [address] Care Team Providers Care Petrophysicist Name Role Phone Geraldo Gracia [facility] Primary Care Provider Reason for Referral * Consultation (Routine) - Closed Specialty Diagnoses / Procedures Referred By Mikaela costa Referred To Contact General Surgery Diagnoses Chronic abdominal pain Herlinda Hillman MD [facility] DR [place] [address] [facility] [place] [place] [address] [place] [address] Referral ID Status Reason Start Date Expiration Date V isits Requested Visits Authorized [id number] Closed Consult, Test & Treat 10/22/2022 10/22/2023 1 1 Encounter Details Date Type Department Care Team (Late st Contact Info) Description 10/22/2022 10:30 AM EDT Office Visit [place] [address] Herlinda Hillman MD [facility] [place] [address] Chronic abdominal pain Social History Tobacco Use Types Packs/Day Years [...] Sign Reading Time Taken Comments Blood Pressure 103/62 10/22/2022 10:36 AM EDT Pulse 84 10/22/2022 10:36 AM EDT Temperature - - Respiratory Rate - - Oxygen Saturation - - Inhaled Oxygen Concentration - - Weight 45.6 kg (100 lb 9.6 oz) 10/22/2022 10:36 AM EDT Height 157.5 cm (5' 2) 10/22/2022 10:36 AM EDT Body Mass Index 18.4 10/22/2022 10:36 AM EDT documented in this encounter Progress Notes * Herlinda Hillman MD - 10/22/2022 10:30 AM EDT [facility] Division of Gastroenterology and Hepatology Outpatient Follow-up Visit History of Present Illness: Karolina Olivas is a 45 y.o. patient with a??past medical history significant for??celiac disease, s/p hysterectomy for abnormal uterine bleeding, migraines,??prior episode of pericarditis and costochondritis,??who was referred to GI in July 2020 for??a positive ARNULFO (1:320) and smooth muscle Ab (1:160). Interval History: - Last seen in GI clinic 12/18/21 at which time we discussed her new diagnosis of CREST and related GI roger-dysmotility, planned to start Linzess 72 mcg daily - Last labs 10/01/22 with normal LFTs - Not taking Linzess, taking colace, tried amitiza (headache and nausea) - Overall feeling better than she was previously - Was started on CellCept and had diarrhea, dose adjusted and now constipated again - Having BM once every few days - Her brother in May and she thinks she has been worse since that time - Getting epigastric pain a few days a month, unchanged from prior - Denies nausea or vomiting - Rare heartburn, a few times a week, takes Tums which helps Review of Systems: Constitutional: No weight loss [...] Current Outpatient Medications Medication Sig Dispense Refill ??? mycophenolate (Cellcept) 500 mg tablet Take 2 tablets by mouth 2 times daily. 336 tablet 1 ??? Emgality Pen 120 mg/mL Pen Injector INJECT THE CONTENTS OF ONE PEN (120MG) SUBCUTANEOUSLY ONCE EVERY 28 DAYS 1 mL 5 ??? DULoxetine DR (Cymbalta) 30 mg Capsule, Delayed Release(E.C.) Take 1 capsule by mouth daily. 90tablet 3 ??? hydrOXYchloroQUINE (Plaquenil) 200 mg Tablet Take 1 tablet by mouth daily. Indications: systemic lupus erythematosus, an autoimmune disease 90 tablet 3 ??? levothyroxine (Synthroid) 50 mcg Tablet Take 1 tablet by mouth daily. 60 tablet 0 ??? docusate sodium (Colace) 50 mg Capsule Take 50 mg by mouth as needed. ??? melatonin 3 mg Tablet Take 3 mg by mouth nightly. ??? traZODone (Desyrel) 50 mg Tablet Take 25 mg by mouth nightly. ??? magnesium 250 mg Tablet Take 500 mg by mouth nightly. ??? multivitamin (THERAGRAN) Tablet Take 1 tablet by mouth daily. ??? amitriptyline (Elavil) 25 mg Tablet Take 12.5 mg by mouth nightly. 0 No current facility-administered medications for this visit. Allergies Allergen Reactions ??? Gluten Nausea And Vomiting, Rash and Other (See Comments) Also stomach aches very bad ??? Codeine Phosphate CIS - Nausea/Vomiting ??? Doxycycline Monohydrate CIS - HANDS GET NUMB Physical Examination: Gen: well appearing CV: warm, well perfused Resp: normal work of breathing Abd: Soft, non-tender Skin: no jaundice Neuro: no asterixis Labs: Reviewed in EDH/Scan Docs Lab Results Component Value Date WBC 5.1 10/01/2022 HGB 12.5 10/01/2022 HCT 37.8 10/01/2022 MCV 94.7 (H) 10/01/2022 PLATELET 203 10/01/2022 Chemistry Component Value Date/Time NA 140 10/01/2022 1036 K 4.3 10/01/2022 1036 CL 105 10/01/2022 1036 CO2 29 10/01/2022 1036 BUN 11 10/01/2022 1036 CREATININE 0.69 (L) 10/01/2022 1036 Component Value Date/Time CALCIUM 8.9 10/01/2022 1036 ALKPHOS 38 10/01/2022 1036 AST 17 10/01/2022 1036 ALT 11 10/01/2022 1036 BILITOT <0.2 (L) 10/01/2022 1036 Past Endoscopy and relevant studies: EGD 08/26/20: Findings: ?The examined esophagus was normal. ?The Z-line was regular and was found 40 cm from the ?incisors. ?The entire examined stomach was normal. Biopsies were ?taken with a cold forceps for Helicobacter pylori ?testing. ?The examined duodenum was normal. Biopsies were taken ?with a cold forceps for histology x6 for celiac ?disease. ?? Colonoscopy 08/26/20: Findings: ? A moderate amount of stool was found in the cecum and ?ascending colon, making visualization difficult. The ?terminal ileum was unable to be intubated due to ?looping, despite repositioning. ?The exam was otherwise normal throughout the examined ?colon. Non-targeted biopsies were obtained with a ?cold forceps, throughout the entire colon, to rule ?out microscopic colitis. There was mild oozing from a ?biopsy site in the sigmoid colon, s/p hemoclip x 1 ?with excellent hemostasis achieved. ?Internal hemorrhoids were found during retroflexion. ?The hemorrhoids were moderate. ?? Path 08/26/20: A - Duodenum, ??biopsy: Duodenal mucosa, negative for diagnostic abnormality ?? . B - Stomach, ??biopsy: Antrum-type mucosa with reactive gastropathy. Body/fundic-type mucosa, negative for diagnostic abnormality. C - Nontargeted colon, ?? biopsy: Colonic mucosa, negative for diagnostic abnormality. ?? Fibroscan 08/26/20: Median kPa: 7.4 Mean IQR: [...] patient likely has stage F1 liver fibrosis. ?? Labs 08/26/20: INR 1.1 LFTs normal Ferritin 63 AMA < 0.1 IgG 1260 LKM1 < 5 TTG Ab 0.3 (normal IgA) TSH 5.96 --> Thyroperox Ab 982 ?? Labs 05/15/20: ARNULFO 1:320 ASMA 1:160 DsDNA negative AMA < 0.1 TTG Ab 02/12/17: 0.8 ?? MRE 02/08/2017: ?? 1. ??No evidence of abnormal small bowel wall thickening or dilated loops of small bowel. However, resolution limited in the pelvis and RIGHT lower quadrant due to crowding of the loops of bowel. Copious stool noted throughout the colon without areas of colonic wall thickening. ?? RUQ US 01/19/17: ?1. ??Normal right upper quadrant ultrasound without ??evidence of cholelithiasis oracute cholecystitis.2. ??Unexpected finding: Small to moderate simple ??appearing pericardial effusionof uncertain etiology. ?? EGD 11/11/15: Findings: ?The Z-line was regular and was found 36 cm from the ?incisors. ?The entire examined stomach was normal. ?The examined duodenum was normal. Biopsies for ?histology were taken with a cold forceps for for ?evaluation of celiac disease.? Colonoscopy 11/11/15: Findings: ?The perianal and digital rectal examinations were ?normal. ?The terminal ileum appeared normal. ?A diffuse area of granular mucosa??was found in the ?cecum. Biopsies were taken with a cold forceps for ?histology. ?A patchy area of mildly erythematous mucosa was found ?in the rectum. This was biopsied with a cold forceps ?for histology.? Path 11/11/15: DIAGNOSIS A - Duodenum, ??biopsy: - Duodenal mucosa within normal limits. B - Cecum, ??biopsy: - Colonic mucosa with melanosis coli. C - Rectum, ??biopsy: - ??Rectal mucosa within normal limits.?? IMPRESSION: Ms. Maurice Olivas is a 45 y.o. patient with a??past medical history significant for??celiac disease??(diagnosed 4 years ago), s/p hysterectomy for abnormal uterine bleeding, migraines,??prior episode of pericarditis and costochondritis,??who was referred to GI in July 2020 for??a positive ARNULFO ( 1:320) and smooth muscle Ab (1:160).?? In regards to the concern for AIH, her LFTs remain normal and we can continue with [id number] monitoring. Continued constipation and abdominal pain likely related to roger-dysmotility secondary to CREST. Shedid not tolerate Amitiza and has not been able to get Linzess due to cost. She is overall feeling that her constipation is improved. Her abdominal pain may be related to biliary colic given the presence of stones therefore will plan to have her evaluated by surgery. She reports strict adherence to a gluten free diet but will obtain a tTG given ongoing symptoms. RECOMMENDATIONS: - Initiate Linzess 72 mcg daily, will speak with pharmacy re pricing - tTG IgA - Surgery referral for biliary colic Follow up 6 months This case was discussed with Dr. Attila Hillman MD Fellow in [place] [address] P: [phone] F: [phone] CC Geraldo Mendoza Samia, SENIOR WATER/WASTEWATER ENGINEER [address] [place] [address] * Karly Aiken MD - 10/22/2022 10:30 AM EDT ATTENDING ATTESTATION: I have discussed the patient with the GI fellow, Dr. Hillman and I agree with the fellow's findings,assessment, and plan as written. Karly Aiken MD Gastroenterology attending Pager [phone] documented in this encounter Plan of Treatment Upcoming Encounters Date Type Department Care Team (Latest Contact Info) Description 06/30/2024 9:45 AM EST Hospital Encounter [place] [address] Flor Velasco MD [facility] [place] [address] 06/30/2024 9:45 AM EST - 06/30/2024 10:45 AM EST Surgery [place] [address] Flor Velasco MD [facility] [place] [address] COLONOSCOPY, DIAGNOSTIC (WRVU 3.26) 07/27/2024 8:00 AM EST TH Visit (TeleHealth) [place] [address] Unruly Ramirez MD [facility] [place] [address] 08/03/2024 3:00 PM EST Office Visit Neurology at [facility] [address] [place] [address] Melvin Ramírez MD [facility] [address] [place] [address] 08/25/2024 1:45 PM EDT Office Visit [place] [address] Keven Church MD [facility] [place] [address] Scheduled Procedures Name Priority Associated Diagnoses Date/Ti me COLONOSCOPY, DIAGNOSTIC (WRV U 3.26) Hematochezia 06/30/2024 9:45 AM EST Scheduled Referrals Name Type Priority Associated Diagnoses Orde r Schedule Referral to General Surgery Outpatient Referral Routine Chronic abdominal pain Ordered: 10/22/2022 documented as of this encounter Visit Diagnoses Diagnosis Chronic abdominal pain Abdominal pain, unspecified site Hematochezia Blood in stool documented in this encounter Care Teams Petrophysicist Relationship Specialty Start Date End Date Geraldo Gracia DNP [address] [place] [address] PCP - General Family Medicine 10/01/22 documented as of this encounter
--- OUTSIDE RECORDS SUMMARY | 2024-06-23 18:19 | XMS_ITS | Encounter Summary ---
Author Organization [facility] [place] [address] Care Team Providers Care Jewel Bearing Maker Name Role Phone Geraldo Gracia [facility] Primary Care Provider [phone] Encounter Details Date Type Department Care Team (Latest Contact Info) Description 10/22/2022 Travel Social History Tobacco Use Types Packs/Day [...] 9:45 AM EST Hospital Encounter G[place] [address] Flor Velasco MD [facility] [place] [address] 06/30/2024 9:45 AM EST - 06/30/2024 10:45 AM EST Surgery [place] [address] Flor Velasco MD [facility] [place] [address] COLONOSCOPY, DIAGNOSTIC (WRVU 3.26) 07/27/2024 8:00 AM EST TH Visit (TeleHealth) Gastroenterology at [place] [phone] Unruly Ramirez MD [facility] DR [place] [address] 08/03/2024 3:00 PM EST Office Visit Neurology at [address] [address] Melvin Ramírez MD [facility] [place] [address] 08/25/2024 1:45 PM EDT Office Visit [place] [address] Keven Church MD [facility] [place] [address] Scheduled Procedures Name Priority Associated Diagnoses Date/Ti me COLONOSCOPY, DIAGNOSTIC (WRV U 3.26) Hematochezia 06/30/2024 9:45 AM EST documented as of this encounter Visit Diagnoses Not on filedocumented in this encounter Care Teams Jewel Bearing Maker Relationship Specialty Start Date End Date Geraldo Gracia DNP [address] [place] [id number] PCP - General Family Medicine 10/01/22 documented as of this encounter
--- OUTSIDE RECORDS SUMMARY | 2024-06-23 18:19 | XMS_ITS | Encounter Summary ---
[place] [address] Care Team Providers Care Private Branch Exchange Service Advisor Name Role Phone Geraldo Gracia [facility] Primary Care Provider [phone] Reason for Visit * Reason Comments Medication Refill Encounter Details Date Type Department Care Team (Late st Contact Info) Description 02/17/2023 Refill Neurology at [facility] [address] [place] [address] Elizabeth Banerjee APRN [facility] [place] [address] Social History Tobacco Use Types Packs/Day Years [...] encounter Miscellaneous Notes * Telephone Encounter - Soumya Mchugh RN - 02/17/2023 1:36 PM EDT Prescription Renewal Request Name: Karolina Olivas : 1975 Prescription(s) Requested: Requested Prescriptions Pending Prescriptions Disp Refills Emgality Pen 120 mg/mL Pen Injector [Pharmacy Med Name: EMGALITY 120MG/ML SOAJ] 1 mL 5 Sig: INJECT THE CONTENTS OF ONE PEN (120 MG) SUBCUTANEOUSLY ONCE EVERY 28 DAYS Date of Encounter last in This Dept (If need an appointment send to secretaries to schedule): 10/22/2022, Elizabeth Banerjee APRN Next Encounter in This Dept: Visit date not found Date of Last Refill (for each medication): 09/10/2022, Dispense: 1 mL, Refills: 5 Medication category requirements (labs etc): N/A Status of request: Pended Allergies Allergen Reactions Gluten Nausea And Vomiting, Rash and Other (See Comments) Also stomach aches very bad Codeine Phosphate CIS - Nausea/Vomiting Doxycycline Monohydrate CIS - HANDS GET NUMB Soumya Mchugh RN 02/17/23 1:36 PM documented in this encounter Plan of Treatment Upcoming Encounters Date Type Department Care Team (Latest Contact Info) Description 06/30/2024 9:45 AM EST Hospital Encounter [place] [phone] Flor Velasco MD [facility] [place] [address] 06/30/2024 9:45 AM EST - 06/30/2024 10:45 AM EST Surgery [place] [address] Flor Velasco MD [facility] [place] [address] COLONOSCOPY, DIAGNOSTIC (WRVU 3.26) 07/27/2024 8:00 AM EST TH Visit (TeleHealth) [place] [phone] Unruly Ramirez MD [facility] [place] [address] 08/03/2024 3:00 PM EST Office Visit Neurology at [address] [address] Melvin Ramírez MD [facility] [place] [address] 08/25/2024 1:45 PM EDT Office [place] [phone] Keven Church MD [facility] [place] [address] Scheduled Procedures Name Priority Associated Diagnoses Date/Ti me COLONOSCOPY, DIAGNOSTIC (WRV U 3.26) Hematochezia 06/30/2024 9:45 AM EST documented as of this encounter Visit Diagnoses Not on filedocumented in this encounter Care Teams Private Branch Exchange Service Advisor Relationship Specialty Start Date End Date Geraldo Gracia DNP [address] [place] [address] PCP - General Family Medicine 10/01/22 documented as of this encounter
--- OUTSIDE RECORDS SUMMARY | 2024-06-23 18:19 | XMS_ITS | Encounter Summary ---
[place] [address] Care Team Providers Care Community Health Agent Name Role Phone Geraldo Gracia DNP Primary Care Provider Encounter Details Date Type Department Care Team (Late st Contact Info) Description 03/09/2023 Orders [place] [address] Destiney Blanco, Medication monitoring encounter Social History Tobacco Use Types Packs/Day Years Used Date Smoking Tobacco: Former Cigarettes Q uit: 1992 Smokeless Tobacco: Never Comments:In high school smok ed maybe a 0.5 of a cigarette daily Alcohol Use Standard Drinks/Week Comments Yes 0 (1 standard drink = 0.6 oz pur e alcohol) < once a month [facility] Inpatient Questions Answer Date Recorded [...] 9:45 AM EST Hospital Encounter [place] [phone] Flor Velasco MD [facility] [place] [address] 06/30/2024 9:45 AM EST - 06/30/2024 10:45 AM EST Surgery [place] [address] Flor Velasco MD [facility] [place] [address] COLONOSCOPY, DIAGNOSTIC (WRVU 3.26) 07/27/2024 8:00 AM EST TH Visit (TeleHealth) Gastroenterology at [place] [phone] Unruly Ramirez MD [facility] [place] [address] 08/03/2024 3:00 PM EST Office Visit Neurology at [address] [phone] Melvin Ramírez MD [facility] [place] [place] [address] 08/25/2024 1:45 PM EDT Office [place] [phone] Keven Church MD [facility] [place] [address] Scheduled Procedures Name Priority Associated Diagnoses Date/Ti me COLONOSCOPY, DIAGNOSTIC (WRV U 3.26) Hematochezia 06/30/2024 9:45 AM EST documented as of this encounter Visit Diagnoses Diagnosis Medication monitoring encounter Encounter for therapeutic drug monitoring Hematochezia Blood in stool documented in this encounter Care Teams Community Health Agent Relationship Specialty Start Date End Date Geraldo Gracia DNP [address] [place] [address] PCP - General Family Medicine 10/01/22 documented as of this encounter
--- OUTSIDE RECORDS SUMMARY | 2024-06-23 18:19 | XMS_ITS | Encounter Summary ---
[place] [address] Care Team Providers Care Tire Shop Manager Name Role Phone Geraldo Gracia [facility] Primary Care Provider Encounter Details Date Type Department Care Team (Late st Contact Info) Description 02/19/2023 Telephone [place] [phone] Trena Mandujano Social History Tobacco Use Types Packs/Day Years [...] encounter Miscellaneous Notes * Telephone Encounter - Trena Mandujano - 02/19/2023 12:13 PM EDT Copied from [facility] #[id number]. Topic: Specialty Dept CRMs - Generic Call >> Feb 11, 2023 1:18 PM Allyson Sanchez wrote: Specialist: Destiney Blanco, Relationship (if other than patient-full name): [facility], [place], [place] Reason for Call: See encounters since 10.01.22. [facility] states they cannot schedule the echocardiogram until the authorization information is received. documented in this encounter Plan of Treatment Upcoming Encounters Date Type Department Care Team (Latest Contact Info) Description 06/30/2024 9:45 AM EST Hospital Encounter Gastroenterology at [place] [phone] Flor Velasco MD [facility] [place] [address] 06/30/2024 9:45 AM EST - 06/30/2024 10:45 AM EST Surgery [place] [address] Flor Velasco MD [facility] [place] [address] COLONOSCOPY, DIAGNOSTIC (WRVU 3.26) 07/27/2024 8:00 AM EST TH Visit (TeleHealth) Gastroenterology at [place] [phone] Unruly Ramirez MD [facility] [place] [address] 08/03/2024 3:00 PM EST Office Visit Neurology at [address] [address] Melvin Ramírez MD [facility] [place] [address] 08/25/2024 1:45 PM EDT Office [place] [address] Keven Church MD [facility] [address] Scheduled Procedures Name Priority Associated Diagnoses Date/Ti me COLONOSCOPY, DIAGNOSTIC (WRV U 3.26) Hematochezia 06/30/2024 9:45 AM EST documented as of this encounter Visit Diagnoses Not on filedocumented in this encounter Care Teams Tire Shop Manager Relationship Specialty Start Date End Date Geraldo Gracia DNP [address] [place] [address] PCP - General Family Medicine 10/01/22 documented as of this encounter
--- OUTSIDE RECORDS SUMMARY | 2024-06-23 18:19 | XMS_ITS | Encounter Summary ---
[place] [address] Care Team Providers Care Shearing Shed Worker Name Role Phone Geraldo Gracia DNP Primary Care Provider Encounter Details Date Type Department Care Team (Late st Contact Info) Description 03/04/2023 Orders Only [place] [address] Destiney Blanco, Medication monitoring encounter; CREST syndrome Social History Tobacco Use Types Packs/Day Years Used Date Smoking Tobacco: Former Cigarettes Q uit: 1992 Smokeless Tobacco: Never Comments:In high school smok ed maybe a 0.5 of a cigarette daily Alcohol Use Standard Drinks/Week Comments Yes 0 (1 standard drink = 0.6 oz pur e alcohol) < once a month [facility] Inpatient Questions Answer Date Recorded Does Anyone [...] 9:45 AM EST Hospital Encounter Gastroenterology at [place] [phone] Flor Velasco MD [facility] [place] [place] [address] 06/30/2024 9:45 AM EST - 06/30/2024 10:45 AM EST Surgery G[place]enterology [place] [phone] Flor Velasco MD [facility] [place] [place] [address] COLONOSCOPY, DIAGNOSTIC (WRVU 3.26) 07/27/2024 8:00 AM EST TH Visit (TeleHealth) Gastroenterology at [place] [phone] Unruly Ramirez MD [facility] [place] [address] 08/03/2024 3:00 PM EST Office Visit Neurology at [address] [phone] Melvin Ramírez MD [facility] [place] [address] 08/25/2024 1:45 PM EDT Office Visit [place]ology [place] [address] Keven Church MD [facility] [place] [address] Scheduled Procedures Name Priority Associated Diagnoses Date/Ti me COLONOSCOPY, DIAGNOSTIC (WRV U 3.26) Hematochezia 06/30/2024 9:45 AM EST documented as of this encounter Visit Diagnoses Diagnosis Medication monitoring encounter Encounter for therapeutic drug monitoring CREST syndrome Systemic sclerosis Hematochezia Blood in stool documented in this encounter Care Teams Shearing Shed Worker Relationship Specialty Start Date End Date Geraldo Gracia DNP [address] [place] [address] PCP - General Family Medicine 10/01/22 documented as of this encounter
--- OUTSIDE RECORDS SUMMARY | 2024-06-23 18:19 | XMS_ITS | Encounter Summary ---
[place] [address] Care Team Providers Care Diabetes Physician Name Role Phone Geraldo Gracia DNP Primary Care Provider [phone] Encounter Details Date Type Department Care Team (Latest Contact Info) Description 03/24/2023 4:45 PM EDT TH Visit (TeleHealth) [place] [address] Bernice Espinoza MD [facility] [address] Status post laparoscopic cholecystectomy Social History Tobacco Use Types Packs/Day Years [...] as of this encounter Progress Notes * Bernice Espinoza MD - 03/24/2023 4:45 PM EDT Called x2 for postop follow up. No answer, left message. documented in this encounter Plan of Treatment Upcoming Encounters Date Type Department Care Team (Latest Contact Info) Description 06/30/2024 9:45 AM EST Hospital Encounter [place] [address] Flor Velasco MD [facility] [address] 06/30/2024 9:45 AM EST - 06/30/2024 10:45 AM EST Surgery [place] [address] Flor Velasco MD [facility] [address] COLONOSCOPY, DIAGNOSTIC (WRVU 3.26) 07/27/2024 8:00 AM EST TH Visit (TeleHealth) [place] [address] Unruly Ramirez MD [facility] [place] [address] 08/03/2024 3:00 PM EST Office Visit Neurology at [facility] [address] [place] [address] Melvin Ramírez MD [facility] [place] [address] 08/25/2024 1:45 PM EDT Office Visit [place] [address] Keven Church MD [facility] [address] Scheduled Procedures Name Priority Associated Diagnoses Date/Ti me COLONOSCOPY, DIAGNOSTIC (WRV U 3.26) Hematochezia 06/30/2024 9:45 AM EST documented as of this encounter Visit Diagnoses Diagnosis Status post laparoscopic cholecystectomy Other postprocedural status Hematochezia Blood in stool documented in this encounter Care Teams Diabetes Physician Relationship Specialty Start Date End Date Geraldo Gracia DNP [address] [place] [address] PCP - General Family Medicine 10/01/22 documented as of this encounter
--- OUTSIDE RECORDS SUMMARY | 2024-06-23 18:19 | XMS_ITS | Encounter Summary ---
[place] [address] Care Team Providers Care Production Bow Maker Name Role Phone Geraldo Gracia DNP Primary Care Provider Reason for Visit * Reason Comments Prior Authorization Benlysta 200mg/ml SO AJ Encounter Details Date Type Department Care Team (Late st Contact Info) Description 03/09/2023 Specialty [place] [phone] Rhonda Garza, HEEL STAINER Social History Tobacco Use Types Packs/Day Years [...] this encounter Progress Notes * Rhonda Garza - 03/09/2023 10:11 AM EDT [facility], Medication Prior Authorization Submission Patient: Karolina Olivas Patient : 1975 Patient Address: [address] [place] [phone] (home) Medication Name: BENLYSTA 200 MG/ML SUBCUTANEOUS AUTO-INJECTOR Medication ID: Subscriber Insurance: [employer] (ADV) Subscriber Insurance Comment: Phone: Fax: Physician: DULCE CALABRESE Physician Comment: Sent Via: [facility] Brasher: Brasher: [id number] Ref/Case/PA#: Medication Strength Frequency Requested: Inject the contents of one pen(200mg) subcutaneously every7 days Qty/Day Supply: 09/25 New Start: New to Therapy Diagnosis & ICD-10 Code: SLE M32.9 Patient Notified: Yes Submission Notes: Tamie Garza 03/09/23 10:14 AM * Rhonda Garza - 03/09/2023 10:11 AM EDT [facility], Prior Authorization Approval Medication Name: BENLYSTA 200 MG/ML SUBCUTANEOUS AUTO-INJECTOR Medication ID: Approval Dates: 03/09/2023 to 03/09/2024 Insurance requirements/notes: None Other Notes: None Case/Reference #: [id number] Approval notification Received via: Fax Copay: N/A Copay assistance: Copay Card Copay Notes: Benlysta copay card Insurance mandated Pharmacy: [facility] Fill[facility] at [facility]: No Patient Notified: To be contacted by [facility] for consult Pharmacy staff will be reaching out to the patient to inform them of their medication's approval [facility]. If applicable, a pharmacist will speak with the patient to offer our specialty pharmacy services and to arrange delivery of their medication. Rhonda Garza 03/10/23 8:17 AM documented in this encounter Plan of Treatment Upcoming Encounters Date Type Department Care Team (Latest Contact Info) Description 06/30/2024 9:45 AM EST Hospital Encounter [place] [address] Flor Velasco MD [facility] [place] [address] 06/30/2024 9:45 AM EST - 06/30/2024 10:45 AM EST Surgery [place] [address] Flor Velasco MD [facility] [place] [address] COLONOSCOPY, DIAGNOSTIC (WRVU 3.26) 07/27/2024 8:00 AM EST TH Visit (TeleHealth) [place] [address] Unruly Ramirez MD [facility] DR [place] [address] 08/03/2024 3:00 PM EST Office Visit Neurology at [address] [phone] Melvin Ramírez MD [facility] DR [facility] [place] [address] 08/25/2024 1:45 PM EDT Office [place] [address] Keven Church MD [facility] [place] [address] Scheduled Procedures Name Priority Associated Diagnoses Date/Ti me COLONOSCOPY, DIAGNOSTIC (WRV U 3.26) Hematochezia 06/30/2024 9:45 AM EST documented as of this encounter Visit Diagnoses Not on filedocumented in this encounter Care Teams Production Bow Maker Relationship Specialty Start Date End Date Geraldo Gracia DNP [address] [place] [address] PCP - General Family Medicine 10/01/22 documented as of this encounter
--- OUTSIDE RECORDS SUMMARY | 2024-06-23 18:19 | XMS_ITS | Encounter Summary ---
Author Organization [facility] [place] [address] Care Team Providers Care Deckhand Clam Dredge Name Role Phone Geraldo Gracia DNP Primary Care Provider Reason for Visit * Reason Onset Date Comments Appointment 03/01/2023 Encounter Details Date Type Department Care Team (Late st Contact Info) Description 03/01/[address] [facility] [address] [place] [address] Elizabeth Banerjee APRN [facility] [place] [address] Appointment Social History Tobacco Use Types Packs/Day [...] EST Hospital Encounter Gastroenterology at [place] [phone] Flor Velasco MD [facility] [place] [address] 06/30/2024 9:45 AM EST - 06/30/2024 10:45 AM EST Surgery Gastroenterology at [place] [phone] Flor Velasco MD [facility] [place] [address] COLONOSCOPY, DIAGNOSTIC (WRVU 3.26) 07/27/2024 8:00 AM EST TH Visit (TeleHealth) Gastroenterology at [place] [phone] Unruly Ramirez MD [facility] [place] [address] 08/03/2024 3:00 PM EST Office Visit Neurology at [address] [phone] Melvin Ramírez MD [facility] DR [place] [address] 08/25/2024 1:45 PM EDT Office [place] [address] Keven Church MD [facility] [place] [address] Scheduled Procedures Name Priority Associated Diagnoses Date/Ti me COLONOSCOPY, DIAGNOSTIC (WRV U 3.26) Hematochezia 06/30/2024 9:45 AM EST documented as of this encounter Visit Diagnoses Not on filedocumented in this encounter Care Teams Deckhand Clam Dredge Relationship Specialty Start Date End Date Geraldo Gracia DNP [address] [place] [address] PCP - General Family Medicine 10/01/22 documented as of this encounter
--- OUTSIDE RECORDS SUMMARY | 2024-06-23 18:19 | XMS_ITS | Encounter Summary ---
Author Organization [facility] [place] [address] Care Team Providers Care Sales Route Driver Helper Name Role Phone Geraldo Gracia DNP Primary Care Provider Encounter Details Date Type Department Care Team (Latest Contact Info) Description 03/29/2023 11:10 AM EDT TH Visit (TeleHealth) [place] [address] Bernice Espinoza MD [facility] [place] [address] Status post laparoscopic cholecystectomy Social History Tobacco [...] Progress Notes * Bernice Espinoza MD - 03/29/2023 11:10 AM EDT MINIMALLY INVASIVE SURGERY VIRTUAL FOLLOW UP NOTE Karolina Richards Olivas contacted in follow up following a laparoscopic cholecystectomy with IOC. Findings: 1) Normal appearing gallbladder, normal cholangiogram 2) Enlarged liver, fatty and somewhat stiff. Right lobe liver biopsy performed 3) Small white nodules under the peritoneum near duodenum, biopsied DIAGNOSIS A - Right lobe liver biopsy, biopsy: Subcapsular liver with large portal tracts with thick wall bile duct and portal vessels. Trichrome stains highlights the large and small portal tracts. Iron stain is negative. B - Gallbladder, excision: Chronic cholecystitis. C - Mesentery nodule right upper quadrant, excision: Fragment of nerve and vascular tissue. Today she reports that she is essentially asymptomatic and has resumed most of her usual activities. She reports that her port sites are healing well. Overall, she is doing quite well. We reviewed her pathology, which was benign. She knows to contactme if further issues, and I will otherwise follow up with her on a prn basis. Time Attestation: I spent a total of 5 minutes associated with this encounter, including chart review, the patient encounter, and documentation. documented in this encounter Plan of Treatment Upcoming Encounters Date Type Department Care Team (Latest Contact Info) Description 06/30/2024 9:45 AM EST Hospital En[place] [address] Flor Velasco MD [facility] [place] [address] 06/30/2024 9:45 AM EST - 06/30/2024 10:45 AM EST [place] [address] Flor Velasco MD [facility] [address] COLONOSCOPY, DIAGNOSTIC (WRVU 3.26) 07/27/2024 8:00 AM EST TH Visit (TeleHealth) [place] [address] Unruly Ramirez MD [facility] [place] [address] 08/03/2024 3:00 PM EST Office Visit Neurology at [address] [phone] Melvin Ramírez MD [facility] [place] [address] 08/25/2024 1:45 PM EDT [place] [address] Keven Church MD [facility] [address] Scheduled Procedures Name Priority Associated Diagnoses Date/Ti me COLONOSCOPY, DIAGNOSTIC (WRV U 3.26) Hematochezia 06/30/2024 9:45 AM EST documented as of this encounter Visit Diagnoses Diagnosis Status post laparoscopic cholecystectomy Other postprocedural status Hematochezia Blood in stool documented in this encounter Care Teams Sales Route Driver Helper Relationship Specialty Start Date End Date Geraldo Gracia DNP [address] [place] [address] PCP - General Family Medicine 10/01/22 documented as of this encounter
--- OUTSIDE RECORDS SUMMARY | 2024-06-23 18:19 | XMS_ITS | Encounter Summary ---
[place] [address] Care Team Providers Care Auditor In Charge Name Role Phone Geraldo Gracia DNP Primary Care Provider Reason for Visit * Reason Comments Medication Refill Encounter Details Date Type Department Care Team (Late st Contact Info) Description 03/12/2023 [place] [address] Destiney Blanco, DO CREST syndrome; Medication monitoring encounter Social History Tobacco Use Types Packs/Day Years Used Date Smoking Tobacco: Former Cigarettes Q uit: 1992 Smokeless Tobacco: Never Comments:In high school smok ed maybe a 0.5 of a cigarette daily Alcohol Use Standard Drinks/Week Comments Yes 0 (1 standard drink = 0.6 oz pur e alcohol) < once a month [facility] Inpatient Questions Answer Date Recorded [...] 9:45 AM EST Hospital Encounter Gastroenterology at [place] [phone] Flor Velasco MD [facility] [place] [address] 06/30/2024 9:45 AM EST - 06/30/2024 10:45 AM EST [place] [phone] Flor Velasco MD [facility] [place] [address] COLONOSCOPY, DIAGNOSTIC (WRVU 3.26) 07/27/2024 8:00 AM EST TH Visit (TeleHealth) Gastroenterology at [place] [phone] Unruly Ramirez MD [facility] [place] [address] 08/03/2024 3:00 PM EST Office Visit Neurology at [address] [phone] Melvin Ramírez MD [facility] [place] [address] 08/25/2024 1:45 PM EDT Office [place] [address] Keven Church MD [facility] [place] [address] Scheduled Procedures Name Priority Associated Diagnoses Date/Ti me COLONOSCOPY, DIAGNOSTIC (WRV U 3.26) Hematochezia 06/30/2024 9:45 AM EST documented as of this encounter Visit Diagnoses Diagnosis CREST syndrome Systemic sclerosis Medication monitoring encounter Encounter for therapeutic drug monitoring Hematochezia Blood in stool documented in this encounter Care Teams Auditor In Charge Relationship Specialty Start Date End Date Geraldo Gracia DNP [address] [place] [address] PCP - General Family Medicine 10/01/22 documented as of this encounter
--- OUTSIDE RECORDS SUMMARY | 2024-06-23 18:19 | XMS_ITS | Encounter Summary ---
[place] [address] Care Team Providers Care Software Configuration Specialist Name Role Phone Geraldo Gracia [facility] Primary Care Provider Reason for Visit * Auth/Cert (Routine) Specialty Diagnoses / Procedures Referred By Mikaela costa Referred To Contact Diagnoses Symptomatic cholelithiasis SYMPTOMATIC GALLSTONES Procedures PRO LAP, CHOLECYSTECTOMY/GRAPH LAPAROSCOPIC CHOLECYSTECTOMY WITH CHOLANGIOGRAM (WRVU 11.47) Nehemiah Espinoza MD [facility] [place] [address] [facility] Referral ID Status Reason Start Date Expiration Date Visits Re quested Visits Authorized [id number] 1 1 Encounter Details Date Type Department Care Team (Late st Contact Info) Description 02/25/2023 8:41 AM EDT - 02/25/2023 11:44 AM EDT Surgery [place] [address] Nehemiah Espinoza MD [facility] [place] [address] LAPAROSCOPIC CHOLECYSTECTOMY WITH CHOLANGIOGRAM (WRVU 11.47) Social History Tobacco Use Types Packs/Day Years [...] Sign Reading Time Taken Comments Blood Pressure 112/60 02/25/2023 11:30 AM EDT Pulse 82 02/25/2023 11:30 AM EDT Temperature 36.3 ??C (97.3 ??F) 02/25/2023 1 1:00 AM EDT Respiratory Rate 12 02/25/2023 11:3 0 AM EDT Oxygen Saturation 100% 02/25/2023 11: 30 AM EDT Inhaled Oxygen Concentration - - Weight 46.6 kg (102 lb 12.8 oz) 02/25/2023 7:39 AM EDT Height 157.5 cm (5' 2) 02/25/2023 7:39 AM EDT Body Mass Index 18.8 02/25/2023 7:39 AM EDT documented in this encounter Discharge Instructions * Patient Instructions* Conner Walsh MD - 02/25/2023 11:06 AM EDT [facility] Department of Surgery Discharge Instructions CALL YOUR PHYSICIAN'S OFFICE IF: You have a fever greater than 101 degrees Farenheit (38.3C) within one month of your surgery. You have diarrhea or vomiting for >24 hours, stop having bowel movements and/or passing flatus, have pain with urination. You have worsening pain, not controlled with your pain medication. You develop redness, swelling, or new drainage from your wound. Medications: [x] Pain Control [] Non-narcotic pain medication - We recommend alternating with tylenol 650mg and ibuprofen 400-600mg every 6 hours as needed for pain (i.e.; tylenol at 12pm, ibuprofen 3pm, tylenol 6pm, ibuprofen 9pm). - Do not take more than 4,000mg (4g) of tylenol in 24 hours. [x] Other Medication(s) - The remainder of your medications are listed in the first section of the After Visit Summary. Driving Restrictions: - No driving if you are too sore from surgery to enter or exit your vehicle comfortably, or if you are too sore to easily check your blind spot. No driving while using narcotic pain medications. Shower: - It is ok to shower on Wednesday morning. You can shower per usual routine and let soapy water run over your incision. Pat incision dry with a clean, dry towel. Do not submerge the wound under water (no swimming or soaking) for at least 6 weeks, or until approved by your surgeon. Diet: [x] You have been cleared to resume your regular diet - We recommend eating a regular healthy diet (i.e.; fresh fruits, vegetables and fiber-containing foods will assist in wound healing,) [x] Initial diarrhea is reported after cholecystectomy so try to reduce your fat intake if this is the case. It should improve with time. Activity: - It is normal to feel tired after surgery/hospitalization. Be as active as tolerated as this will improve recovery and prevent blood clots. - You should avoid any heavy lifting for 4 weeks after surgery. A galloon of milk is a good estimate of the maximum you should be lifting while your wounds heal. -We recommend taking several slow, short walks each day for the first two weeks, and gradually increase your distance. We recommend at least 4 times a day. Wound/Incision Care: Closure: Your skin incision(s) is/are closed with: [x] Glue - There are sutures below the skin and the glue is the dressing. There is nothing to remove and the discoloration will go away in time. Infection: Observe for changes and alert the clinic if new/worsening redness or drainage. Things to avoid: Do not use creams, oils, or ointments on the wound. Keep wound open to air if it is not draining. Who to call? If you have concerns or questions: - During the day, it is best to call the [facility] to speak with the Surgery nurses. The number is [phone]. - During the night or weekends call the [facility] radial drill press operator for plastic at [phone] and ask to speak to the surgery resident peoplesoft functional analyst for general surgery. Please note: Your surgeon may not be General Education Instructor, especially during the night or on weekends, so be ready to describe yourself and your surgery when you call. Follow up appointments: Future Appointments Date Time Provider Department Center 03/24/2023 4:30 PM Nehemiah Espinoza MD [facility] SURG [facility] 04/16/2023 10:15 AM Destiney Blanco DO [facility] RHEUM [facility] 10/28/2023 11:30 AM Herlinda Hillman MD [facility] GASTRO [facility] [x] Follow-up appointment with General Surgery has already been scheduled. Please call the clinic at [phone] to confirm or reschedule. [] A request for a follow-up appointment has been made and you should receive information via phone/mail in the next week. If you do not hear anything, please call the clinic at [phone] to confirm or reschedule. If you need a prior authorization, please call the General Surgery Clinic nurses [phone] for prior authorizations assistance documented in this encounter Medications at Time [...] daily. 11/15/2023 documented as of this encounter Progress Notes * Umu Wilson RN - 02/25/2023 12:18 PM EDT AVS reviewed with pt and with good understanding. IV removed without difficulty. Pt meets discharge criteria at this time. Pt discharged home with . Juan Daniel RN documented in this encounter H&P Notes * Nehemiah Espinoza MD - 02/25/2023 8:07 AM EDT Day of Surgery Update Please see clinic note for further historical details, copied below. The patient's history and physical exam have been reviewed and completed. There has been no interval change from that of the pre-operative history and physical exam with RRRand CTAB. All preoperative questions were answered. Plan to proceed with lap axel with IOC. NEHEMIAH ESPINOZA MD Karolina Mcintyre Maurice Olivas is a 47 y.o. female referred by Dr. Herlinda Mason for symptomatic gallstones. She has had multiple episodes of epigastric to RUQ abdominal pain for many years. These are worsened at time by eating, although she doesn't report a clear association with types of food. She notes some associated left shoulder pain. She describes nausea but no vomiting. She has frequent bloating, plus both diarrhea and constipation at different times. Her diet limited due to celiac disease. A right upper quadrant ultrasound revealed: 05/28/21 RUQ US: small stones vs. Polyps. No ductal dilation 12/08/21 GES: Normal Liver function tests were normal. She is followed by GI for celiac disease, CREST and roger dysmotility. Past Medical History: Patient Active Problem List Diagnosis Code Constipation K59.00 Diarrhea R19.7 CREST/SLE on Cellcept - Celiac disease Hypothyroid Liver Past Surgical History: Past Surgical History Past Surgical History: Procedure Laterality Date HYSTERECTOMY PRO COLONOSCOPY, BIOPSY N/A 11/11/2015 COLONOSCOPY FLEXIBLE, WITH BX performed by Rhett Underwood MD at [facility] ENDOSCOPY PRO COLONOSCOPY, BIOPSY N/A 08/26/2020 COLONOSCOPY FLEXIBLE, WITH BX (WRVU 3.66) performed by Tom Hyatt MD at [facility] ENDOSCOPY PRO COLONOSCOPY, FLEX, W/CONTROL, BLEEDING 08/26/2020 COLONOSCOPY; W CONTROL OF BLEEDING, ANY METHOD performed by Tom Hyatt MD at [facility] ENDOSCOPY PRO UPPER GI ENDOSCOPY, BIOPSY N/A 11/11/2015 EGD WITH BIOPSY performed by Rhett Underwood MD at [facility] ENDOSCOPY PRO UPPER GI ENDOSCOPY, BIOPSY N/A 08/26/2020 EGD WITH BIOPSY (WRVU 2.49) performed by Tom Hyatt MD at [facility] ENDOSCOPY TONSILLECTOMY C section Current Outpatient Medications: mycophenolate (Cellcept) 500 mg tablet, Take 2 tablets by mouth 2 times daily., Disp: 336 tablet, Rfl: 1 Emgality Pen 120 mg/mL Pen Injector, INJECT THE CONTENTS OF ONE PEN (120MG) SUBCUTANEOUSLY ONCE EVERY 28 DAYS, Disp: 1 mL, Rfl: [address] (Cymbalta) 30 mg Capsule, Delayed Release(E.C.), Take 1 capsule by mouth daily., Disp: 90 tablet, Rfl: 3 hydrOXYchloroQUINE (Plaquenil) 200 mg Tablet, Take 1 tablet by mouth daily. Indications: systemic lupus erythematosus, an autoimmune disease, Disp: 90 tablet, Rfl: 3 levothyroxine (Synthroid) 50 mcg Tablet, Take 1 tablet by mouth daily., Disp: 60 tablet, Rfl: 0 docusate sodium (Colace) 50 mg Capsule, Take 50 mg by mouth as needed., Disp: , Rfl: melatonin 3 mg Tablet, Take 3 mg by mouth nightly., Disp: , Rfl: traZODone (Desyrel) 50 mg Tablet, Take 25 mg by mouth nightly., Disp: , Rfl: magnesium 250 mg Tablet, Take 500 mg by mouth nightly., Disp: , Rfl: multivitamin (THERAGRAN) Tablet, Take 1 tablet by mouth daily., Disp: , Rfl: amitriptyline (Elavil) 25 mg Tablet, Take 12.5 mg by mouth nightly., Disp: , Rfl: 0 Allergies: Gluten, Codeine phosphate, and Doxycycline monohydrate Family History: Family History Family History Problem Relation Age of Onset Asthma Father Asthma Brother Food Allergy Child Breast Cancer Paternal Grandmother 69 Colorectal Cancer Paternal Grandfather 70 Prostate Cancer Brother 50 neg 47 gene panel Skin Cancer Maternal Uncle 30 Uterine Cancer Paternal Aunt 56 Colorectal Cancer Paternal Cousin 38 at 39, no genetic testing No Known Problems Mother Migraines Daughter Allergic Rhinitis Neg Hx Social History: reports that she quit smoking about 30 years ago. Her smoking use included cigarettes. She has never used smokeless tobacco. She reports current alcohol use. She reports that she does not use drugs. Etoh - rare BP 110/65 Pulse 95 Resp 18 Ht 157.5 cm (5' 2) Wt 45.4 kg (100 lb) SpO2 100% BMI 18.29 kg/m?? On physical examination, this is a well appearing female. There is no scleral or skin icterus. Mucous membranes are moist. pupils reactive. Her lungs are clear to auscultation. Heart is regular, rate, and rhythm and without murmurs. Her abdomen is nontender and without palpable masses. There are noapparent hernias. Her extremity and neurological exam are grossly normal. Impression. Symptomatic gallstones. Her symptoms are not completely classic, but do sound consistent with biliary colic. Because of the frequency of her biliary colic, I agree that laparoscopic cholecystectomy is indicated. The majority of this visit was spent discussing the nature of her gallstonedisease and reasons for considering laparoscopic cholecystectomy including eliminating current sympt oms and preventing future complications. We also reviewed the risks of this procedure, including the possibility of bleeding requiring transfusion, infection, injury to the biliary tree, and the occasional need to convert to an open procedure. We discussed a risk of residual symptoms after cholecystectomy. Overall, she seems well informed and wishes to proceed. documented in this encounter Miscellaneous Notes * Op Note - Nehemiah Espinoza MD - 02/25/2023 9:29 AM EDT [facility] Operative Note Patient Name: Karolina Olivas : [id number] MR#: [id number] Case Date: 02/25/2023 Surgeon: Surgeon(s) and Role: * Nehemiah Espinoza MD - Primary * Conner Walsh MD - Resident - Assisting Preoperative diagnosis: SYMPTOMATIC GALLSTONES Postoperative diagnosis: SYMPTOMATIC GALLSTONES Procedure(s) (LRB): LAPAROSCOPIC CHOLECYSTECTOMY WITH CHOLANGIOGRAM (VU 11.47) (N/A) Findings: 1) Normal appearing gallbladder, normal cholangiogram 2) Enlarged liver, fatty and somewhat stiff. Right lobe liver biopsy performed 3) Small white nodules under the peritoneum near duodenum, biopsied Anesthesia: General Estimated Blood Loss: 7 cc Specimens removed during surgery: Order Name Source Comment Collection Info Order Time SPECIMEN TO PATHOLOGY SYMPTOMATIC GALLSTONES right lobe liver biopsy biopsy No 02/25/2023 10:16 AM Time specimen removed from patient: 10:15 AM Number of tissue samples (in container) 1 Biospecimen to store? No SPECIMEN TO PATHOLOGY SYMPTOMATIC GALLSTONES gallbladder excision 02/25/2023 10:16 AM Time specimen removed from patient: 10:15 AM Number of tissue samples (in container) 1 SPECIMEN TO PATHOLOGY SYMPTOMATIC GALLSTONES mesentary nodule right upper quadrant excision 02/25/2023 10:27 AM Time specimen removed from patient: 10:27 AM Number of tissue samples (in container) 1 Drains: None Surgical Closure: Primary Closure - skin incision is completely closed without any wires, riki, drains or other devices Disposition: awakened from anesthesia, extubated and taken to the recovery room in a stable condition, having suffered no apparent untoward event. Condition: doing well without problems (Please see the Surgical Encounter Summary for any Implant and Specimen details pertinent to this patient.) HPI/Surgical Indications: The patient is a 47 y.o.-year-old female with a history of right upper quadrant pain, confirmed to have gallstones on ultrasound. Following review of her therapeutic options, she has elected to undergo a laparoscopic cholecystectomy. Description of Procedure: The patient was brought to the Operating Room and placed in the supine position. IV antibiotics were infused and Venodyne stockings placed. Following uneventful induction ofgeneral endotracheal anesthesia, an orogastric tube were placed. Her abdomen was prepped and drapedin the usual sterile fashion. After injection of 0.25% marcaine, a small incision was made in the base of the umbilicus followed by insertion of a Veress needle in the abdominal cavity and pneumoperitoneum to 15 mmHg pressure was obtained without difficulty. The first trocar was an optiview 11 mm trocar placed through the umbilicus. Through this, a 30 degree laparoscope was inserted. Inspection of the abdomen revealed no evidence of injury from abdominal entry. All remaining trocars were inserted under direct visualization after injection of 0.25% marcaine. The next trocar was a 5 mm trocar placed in the midline just below the xiphoid. The next trocar was a 5 mm trocar placed in the anterior axillary line just below the costal margin. Through this trocar, a grasping forceps was placed on the fundus of the gallbladder where it was then retracted cephalad. The last trocar was a 5 mm trocar placed in the midclavicular line below the costal margin. There were some adhesions to the liver which were taken down for better mobility. The liver was large and somewhat stiff. Using appropriate grasping instruments, the peritoneum overlying the triangle of Calot was incised. The cystic duct/gallbladder junction was identified, dissected circumferentially. The cystic artery was identified medially and was dissected circumferentially. A critical view was obtained. A clip was then placed on the cystic duct/gallbladder junction and an intraoperative cholangiogram performed using fluoroscopy,which showed good flow of dye into the duodenum. There were no intra- or extrahepatic bile duct filling defects. The biliary anatomy appeared normal. Following completion of the cholangiogram, the catheter was removed. Two clips were then placed proximally on the cystic duct and the duct divided. Two clips were placed proximally and one distally on the cystic artery, and the artery was divided. Remaining soft tissue attachments of the gallbladder to the liver bed were then divided using electrocautery. The gallbladder bed was inspected and excellent hemostasis was obtained. The gallbladder was extracted through the umbilical trocar site using an endocatch bag. A right lobe wedge liver biopsy was performed with scissors. Hemostasis was obtained with cautery. The abdomen was again irrigated and excellent hemostasis was assured. There were some small white nodules under the peritoneum near her duodenum. The peritoneum was opened and a nodule sharply removed and sent to pathology. All remaining trocars were then removed and the pneumoperitoneum was evacuated. The umbilical trocar site was closed using a figure of 8 of 0 vicryl. All trocar sites were closed at the skin level using a running subcuticular closure of 4-0 Monocryl followed by Dermabond. Overall, the patient tolerated the procedure well and was taken to the Recovery Room postoperatively in stable condition. I was the attending physician supervising the resident in the above care and I was present with theresident for the entire procedure. Surgical Infection Prevention Bundle Used? N/A documented in this encounter Plan of Treatment Upcoming Encounters Date Type Department Care Team (Latest Contact Info) Description 06/30/2024 9:45 AM EST Hospital Encounter [place] [address] Flor Velasco MD [facility] [place] [address] 06/30/2024 9:45 AM EST - 06/30/2024 10:45 AM EST Surgery [place] [address] Flor Velasco MD [facility] [place] [address] COLONOSCOPY, DIAGNOSTIC (WRVU 3.26) 07/27/2024 8:00 AM EST TH Visit (TeleHealth) [place] [address] Unruly Ramirez MD [facility] [place] [address] 08/03/2024 3:00 PM EST Office Visit Neurology at [address] [phone] Melvin Ramírez MD [facility] [place] [address] 08/25/2024 1:45 PM EDT Office [place] [address] Keven Church MD [facility] [place] [address] Scheduled Procedures Name Priority Associated Diagnoses Date/Ti me COLONOSCOPY, DIAGNOSTIC (WRV U 3.26) Hematochezia 06/30/2024 9:45 AM EST documented as of this encounter Procedures Procedure Name Priority Date/Time Associated Diagnosis Comments XR FLUORO NO RAD <1HR - OR USE Routine 02/25/2023 1:19 PM EDT SPECIMEN TO PATHOLOGY Routine 02/25/2023 10:27 AM EDT SPECIMEN TO PATHOLOGY Routine 02/25/2023 10:16 AM EDT SPECIMEN TO PATHOLOGY Routine 02/25/2023 10:16 AM EDT SURGICAL PATHOLOGY REPORT Routine 02/25/2023 10:15 AM EDT Unlisted Laparoscopic Px Lvr ([id number]) Yes 02/25/2023 8:58 AM EDT SYMPTOMATIC GALLSTONES Lap, Cholecystectomy/Graph ([id number]) Yes 02/25/2023 8:58 AM EDT SYMPTOMATIC GALLSTONES documented in this encounter Results * XR Fluoro No Rad <1Hr - OR Use (02/25/2023 1:19 PM EDT) Narrative Dicom, Auditing User - 02/25/2023 1:21 PM EDT This exam is auto-finalizing. No interpretation was done. Nehemiah Espinoza MD IMG FLUORO ORDERABL ES * Specimen to Pathology (02/25/2023 10:27 AM EDT) AP Specimen 02/25/2023 10:2 7 AM EDT 02/25/2023 10:27 AM EDT Narrative [facility] - 02/25/2023 10:27 AM EDT Specimen requisition ordered. ??Separate Pathology report to follow Nehemiah Espinoza MD PATHOLOGY/CYTOLOGY ORDERABLES Performing Organization Address [facility]/[place] [address] * Specimen to Pathology (02/25/2023 10:16 AM EDT) AP Specimen 02/25/2023 10:1 6 AM EDT 02/25/2023 10:16 AM EDT Narrative [facility] - 02/25/2023 10:16 AM EDT Specimen requisition ordered. ??Separate Pathology report to follow Nehemiah Espinoza MD PATHOLOGY/CYTOLOGY ORDERABLES Performing Organization Address [facility]/[place] [address] * Specimen to Pathology (02/25/2023 10:16 AM EDT) AP Specimen 02/25/2023 10:1 6 AM EDT 02/25/2023 10:16 AM EDT Narrative [facility] - 02/25/2023 10:16 AM EDT Specimen requisition ordered. ??Separate Pathology report to follow Nehemiah Espinoza MD PATHOLOGY/CYTOLOGY ORDERABLES Performing Organization Address [facility]/[place] [address] * Surgical Pathology Report (02/25/2023 10:15 AM EDT) Final Diagnosis [id number] ? Location: [facility]; MI46; A The signing pathologist has (i) examined the relevant preparation(s) for the specimen(s) and (ii) rendered or confirmed the diagnosis(es). . ?Surgical Pathology DIAGNOSIS A - Right lobe liver biopsy, biopsy: Subcapsular liver with large portal tracts with thick wall bile duct and portal ??vessels. Trichrome stains highlights the large and small portal tracts. Iron stain is negative. B - Gallbladder, excision: Chronic cholecystitis. C - ??Mesentery nodule right upper quadrant, excision: Fragment of nerve and vascular tissue. Electronically signed by: ?Ramy WADE, [place] Verified: ??03/12/2023 11:20 ??Pathologist Performed at: ??-[facility] Dept. of Pathology, [place] [address] Customer Care Representative: Yesi Liu MD, FCAP, ??CLIA Certificate: [id number] ADDITIONAL STUDIES Whole slide scan: [id number] A1-1,2 SPECIMEN(S) SUBMITTED A - right lobe liver biopsy, biopsy (1) B - gallbladder, excision (1) C - ??mesentery nodule right upper quadrant, excision (1) CLINICAL INFORMATION Symptomatic gallstones SPECIMEN PROCESSING A - Labeled/Fixative: Right lobe liver biopsy, formalin. Quantity/Size: Single, 1.3 x 0.7 x 0.6 cm. Tissue Description: Wedge of red-brown liver. Sections/Processi ng: Entirely submitted in 1 cassette labeled A1. B - Labeled/Fixative: Gallbladder, fresh. Quantity/Size: ??Single, 6.3 x 2.1 x 1.8 cm. Specimen Description: Gallbladder, received intact. Serosa: Glistening, casas-green Hepatic margin: Roughened, casas-green Lumen contents: Green, viscous, bile. Gallstones: Absent Mucosa: Velvety, casas-green Wall: 0.1-0.2 cm thick. Duct: 0.3 cm, patent. Ink Designation: The hepatic margin is inked black Sections/Processi ng: Global Sourcing Manager sections in 1 cassettes as follows: ?B1: ??cystic duct margin and patient services representative mucosa. C - Labeled/Fixative: Mesentery nodule right upper quadrant, fresh. . SPECIMEN PROCESSING Quantity/Size: Single, 0.3 x 0.2 cm. Tissue Description: Soft, casas-white tissue. Sections/Processi ng: Entirely submitted in 1 cassette labeled C1. ??pps 03/12/2023 11:20 AM EDT [facility] LIVER STRUCTURE / Unknown 02/25/2023 10:15 AM EDT 02/25/2023 10:15 AM EDT GALLBLADDER STRUCTURE / Unknown 02/25/2023 10:15 AM EDT 02/25/2023 10:15 AM EDT GI Biopsy 02/25/2023 10:1 5 AM EDT 02/25/2023 10:15 AM EDT Nehemiah Espinoza MD PATHOLOGY/CYTOLOGY ORDERABLES [facility] [address] [place] [address] documented in this encounter Visit Diagnoses Not on filedocumented in this encounter Administered Medications Inactive Administered Medications - up to 3 most recent administrations Medication Order MAR Action Action Date Dose Rate Site BUpivacaine (pf) (Marcaine) (2.5 mg/mL) 0.25% injection PRN, Starting on Sammie 02/25/23 at 1032, Until Sammie 02/25/23 at 1316, Intra-Operative (Intra-Procedure), Routine Given 02/25/2023 10:32 AM EDT 47 mLs 19- Surgical Site iohexoL (Omnipaque) (300 mg/mL) solution PRN, Starting on Sammie 02/25/23 at 1032, Until Sammie 02/25/23 at 1316, Intra-Operative (Intra-Procedure), Routine Given 02/25/2023 10:32 AM EDT 13 mLs ketorolac (Toradol) (15 mg/mL) injection 15 mg 15 mg, Intravenous, ONCE, 1 dose, On Sammie 02/25/23 at 1130, Routine Given 02/25/2023 11:55 AM EDT 15 mg oxyCODONE (Roxicodone) tablet 5 mg 5 mg, Oral, ONCE PRN, 1 dose, Starting on Sammie 02/25/23 at 1108, Until Sammie 02/25/23 at 1316, Pain, prior to discharge if pain is still >5 after other pain medications, Routine documented in this encounter Active and Recently Administered Medications Times are shown in EDT. Scheduled Medication Order 02/23/2023 02/24/2023 02/25/2023 ketorolac (Toradol) (15 mg/mL) injection 15 mg (COMPLETED) 15 mg, Intravenous, ONCE, 1 dose, On Sammie 02/25/23 at 1130, Routine 1155 (Given - Provid er: Umu Wilson RN) PRN Medication Order 02/23/2023 02/24/2023 02/25/2023 BUpivacaine (pf) (Marcaine) (2.5 mg/mL) 0.25% injection (CANCELED) PRN, Starting on Sammie 02/25/23 at 1032, Until Sammie 02/25/23 at 1316, Intra-Operative (Intra-Procedure), Routine 1032 (Given - Provid er: Nehemiah Espinoza MD) iohexoL (Omnipaque) (300 mg/mL) solution (CANCELED) PRN, Starting on Sammie 02/25/23 at 1032, Until Sammie 02/25/23 at 1316, Intra-Operative (Intra-Procedure), Routine 1032 (Given - Provid er: Nehemiah Espinoza MD) oxyCODONE (Roxicodone) tablet 5 mg 5 mg, Oral, ONCE PRN, 1 dose, Starting on Sammie 02/25/23 at 1108, Until Sammie 02/25/23 at 1316, Pain, prior to discharge if pain is still >5 after other pain medications, Routine documented in this encounter Care Teams Software Configuration Specialist Relationship Specialty Start Date End Date Geraldo Gracia DNP [address] [place] [id number] PCP - General Family Medicine 10/01/22 documented as of this encounter
--- OUTSIDE RECORDS SUMMARY | 2024-06-23 18:19 | XMS_ITS | Encounter Summary ---
[place] [address] Care Team Providers Care Push Button Switch Assembler Name Role Phone Geraldo Gracia DNP Primary Care Provider Reason for Visit * Reason Onset Date Comments Medication Refill 05/20/2023 Encounter Details Date Type Department Care Team (Late st Contact Info) Description 05/20/2023 Refill [place] [phone] Digna Ngo MD Social History Tobacco Use Types Packs/Day Years Used Date Smoking Tobacco: Former Cigarettes Q uit: 1992 Smokeless Tobacco: Never Comments:In high school smok ed maybe a 0.5 of a cigarette daily Alcohol Use Standard Drinks/Week Comments Yes 0 (1 standard drink = 0.6 oz pur e alcohol) < once a month [facility] Inpatient Questions Answer Date Recorded Does Anyone [...] 9:45 AM EST Hospital Encounter [place] [phone] Flor Velasco MD [facility] [place] [address] 06/30/2024 9:45 AM EST - 06/30/2024 10:45 AM EST Surgery [place] [phone] Flor Velasco MD [facility] [place] [address] COLONOSCOPY, DIAGNOSTIC (WRVU 3.26) 07/27/2024 8:00 AM EST TH Visit (TeleHealth) Gastroenterology at [place] [phone] Unruly Ramirez MD [facility] [place] [address] 08/03/2024 3:00 PM EST Office Visit Neurology at [address] [phone] Melvin Ramírez MD [facility] [place] [address] 08/25/2024 1:45 PM EDT Office [place] [phone] Keven Church MD [facility] [place] [address] Scheduled Procedures Name Priority Associated Diagnoses Date/Ti me COLONOSCOPY, DIAGNOSTIC (WRV U 3.26) Hematochezia 06/30/2024 9:45 AM EST documented as of this encounter Visit Diagnoses Not on filedocumented in this encounter Care Teams Push Button Switch Assembler Relationship Specialty Start Date End Date Geraldo Gracia DNP [address] [place] [id number] PCP - General Family Medicine 10/01/22 documented as of this encounter
--- OUTSIDE RECORDS SUMMARY | 2024-06-23 18:19 | XMS_ITS | Encounter Summary ---
[place] [address] Care Team Providers Care Truck Caterer Name Role Phone Geraldo Gracia [facility] Primary Care Provider Encounter Details Date Type Department Care Team (Late st Contact Info) Description 01/14/2023 Telephone [place] [phone] Kaylyn Moreno, RN Social History Tobacco Use [...] Telephone Encounter - Kaylyn Moreno RN - 01/14/2023 3:40 PM EDT Copied from [facility] #[id number]. Topic: Specialty Dept CRMs - Generic Call >> Jan 14, 2023 2:33 PM Lexus Guzmán wrote: Specialist: Destiney Blanco, Relationship (if other than patient-full name): Self Reason for Call: Maryanne, from [facility], called to check on the status of patient's Prior Authorization on their Echocardiogram. Maryanne states patient can't be scheduled until patient is authorized. Please callto advise. documented in this encounter Plan of Treatment Upcoming Encounters Date Type Department Care Team (Latest Contact Info) Description 06/30/2024 9:45 AM EST Hospital Encounter Gastroenterology at [place] [phone] Flor Velasco MD [facility] [place] [address] 06/30/2024 9:45 AM EST - 06/30/2024 10:45 AM EST Surgery [place] [phone] Flor Velasco MD [facility] [place] [address] COLONOSCOPY, DIAGNOSTIC (WRVU 3.26) 07/27/2024 8:00 AM EST TH Visit (TeleHealth) [place] [phone] Unruly Ramirez MD [facility] [place] [address] 08/03/2024 3:00 PM EST Office Visit Neurology at [address] [phone] Melvin Ramírez MD [facility] DR [place] [address] 08/25/2024 1:45 PM EDT Office Visit [place] [phone] Keven Church MD [facility] [place] [address] Scheduled Procedures Name Priority Associated Diagnoses Date/Ti me COLONOSCOPY, DIAGNOSTIC (WRV U 3.26) Hematochezia 06/30/2024 9:45 AM EST documented as of this encounter Visit Diagnoses Not on filedocumented in this encounter Care Teams Truck Caterer Relationship Specialty Start Date End Date Geraldo Gracia DNP [address] [place] [address] PCP - General Family Medicine 10/01/22 documented as of this encounter
--- OUTSIDE RECORDS SUMMARY | 2024-06-23 18:19 | XMS_ITS | Encounter Summary ---
Author Organization [facility] Address [facility] [place] [address] Care Team Providers Care Sticker On Name Role Phone Geraldo Gracia DNP Primary Care Provider [phone] Encounter Details Date Type Department Care Team (Late st Contact Info) Description 06/17/2023 11:00 AM EST Office Visit [place] [address] Herlinda Hillman MD [facility] [place] [address] Autoimmune hepatitis; CREST (calcinosis, Raynaud's phenomenon, esophageal dysfunction, sclerodactyly, telangiectasia); Dysphagia, unspecified type Social History Tobacco Use Types Packs/Day Years Used Date Smoking Tobacco: Former Cigarettes Q uit: 1992 Smokeless Tobacco: Never Comments:In high school smok ed maybe a 0.5 of a cigarette daily Alcohol Use Standard Drinks/Week Comments Yes 0 (1 standard drink = 0.6 oz pur e alcohol) < once a month [facility] Inpatient Questions Answer Date Recorded [...] Sign Reading Time Taken Comments Blood Pressure 91/64 06/17/2023 10:59 AM EST Pulse 97 06/17/2023 10:59 AM EST Temperature - - Respiratory Rate - - Oxygen Saturation - - Inhaled Oxygen Concentration - - Weight 47.9 kg (105 lb 9.6 oz) 06/17/2023 10:59 AM EST Height 157.5 cm (5' 2.01) 06/17/2023 10:[address] Body Mass Index 19.31 06/17/2023 10:59 AM EST documented in this encounter Progress Notes * Herlinda Hillman MD - 06/17/2023 11:00 AM EST [facility] Division of Gastroenterology and Hepatology Outpatient Follow-up Visit History of Present Illness: Karolina Olivas is a 45 y.o. patient with a past medical history significant for celiac disease, s/p hysterectomy for abnormal uterine bleeding, migraines, prior episode of pericarditis and costochondritis, who was referred to GI in July 2020 for a positiveANA (1:320) and smooth muscle Ab (1:160). Interval History: - Last seen in GI clinic 10/22/22 planned to start Linzess 72 mcg daily - Underwent CCY, significant improvement in abdominal pain since that time - Liver biopsy at the time of CCY showed the following: Subcapsular liver with large portal tracts with thick wall bile duct and portal vessels. Trichrome stains highlights the large and small portal tracts. Iron stain is negative. - Unable to start Linzess due to cost - Labs 04/16/23 unremarkable - Constipation has gotten worse, now having BM only once per week and hard to pass - Has hemorrhoids seen by PCP, prescribed suppository but unable to get from pharmacy - Taking colace every night - Using one capful of MiraLax daily - Using fiber gummies - Recently started Imuran for SLE/CREST overlap Review of Systems: Constitutional: No weight loss [...] Current Outpatient Medications Medication Sig Dispense Refill azaTHIOprine (Imuran) 50 mg tablet Take 1 tablet by mouth daily. 60 tablet 1 hydroxychloroquine (Plaquenil) 200 mg tablet Take 1 tablet by mouth daily. Indications: systemic lupus erythematosus, an autoimmune disease [address] (Cymbalta) [address] capsule Take 1 capsule by mouth daily. 90 tablet 3 Emgality Pen 120 mg/mL Pen Injector INJECT THE CONTENTS OF ONE PEN (120 MG) SUBCUTANEOUSLY ONCE EVERY 28 DAYS 1 mL 5 levothyroxine (Synthroid) 50 mcg Tablet Take 1 tablet by mouth daily. 60 tablet 0 docusate sodium (Colace) 50 mg Capsule Take 50 mg by mouth as needed. melatonin 3 mg Tablet Take 3 mg by mouth nightly. traZODone (Desyrel) 50 mg Tablet Take 25 mg by mouth nightly. magnesium 250 mg Tablet Take 500 mg by mouth nightly. multivitamin (THERAGRAN) Tablet Take 1 tablet by mouth daily. amitriptyline (Elavil) 25 mg Tablet Take 12.5 mg by mouth nightly. 0 No current facility-administered medications for this visit. Allergies Allergen Reactions Gluten Nausea And Vomiting, Rash and Other (See Comments) Also stomach aches very bad Codeine Phosphate CIS - Nausea/Vomiting Doxycycline Monohydrate CIS - HANDS GET NUMB Physical Examination: Patient Vitals for the past 24 hrs: Pulse BP 06/17/23 1059 97 91/64 Gen: well appearing CV: warm, well perfused Resp: normal work of breathing Abd: Soft, non-tender Skin: no jaundice Neuro: no asterixis Labs: Reviewed in EDH/Scan Docs Lab Results Component Value Date WBC 5.3 04/16/2023 HGB 13.1 04/16/2023 HCT 38.7 04/16/2023 MCV 94.4 04/16/2023 PLATELET 275 04/16/2023 Chemistry Component Value Date/Time NA 140 04/16/2023 1047 K 4.5 04/16/2023 1047 CL 104 04/16/2023 1047 CO2 28 04/16/2023 1047 BUN 8 04/16/2023 104 CREATININE 0.76 04/16/2023 104 Component Value Date/Time CALCIUM 9.3 04/16/2023 1047 ALKPHOS 50 04/16/2023 1047 AST 28 04/16/2023 1047 ALT 25 04/16/2023 1047 BILITOT 0.3 04/16/2023 104 Past Endoscopy and relevant studies: EGD 08/26/20: [...] biopsy: - Rectal mucosa within normal limits. IMPRESSION: Ms. Maurice Olivas is a 45 y.o. patient with a past medical history significant for celiac disease (diagnosed 4 years ago), s/p hysterectomy for abnormal uterine bleeding, migraines, prior episodeof pericarditis and costochondritis, who was referred to GI in July 2020 for a positive ARNULFO (1:320) and smooth muscle Ab (1:160). Now with improvement in abdominal pain following cholecystectomy. No improvement in constipation, however. We discussed increasing MiraLax to BID which she is amenable to. Also discussed colonoscopy which will be both therapeutic with full bowel cleanout and will be for screening given poor prep onlast colonoscopy. Also recommend EGD given dysphagia to pills, most likely related to CREST. If EGDis normal then will proceed with HREM. Will also discuss with pathologist possible differential for findings on recent liver biopsy. Labs today given recent Imuran start to ensure LFTs/CBC stable. RECOMMENDATIONS: - EGD/Colonoscopy - Consider HREM pending above - Consider trulance, will discuss cost with pharmacy - Increase miralax to BID Follow up 6 months This case was discussed with Dr. Vaibhav Hillman MD Fellow in Gastroenterology [place] [address] P: [phone] F: [phone] CC Geraldo Reji Gracia, [facility] [address] [place] [address] * Toni Esposito MD - 06/17/2023 11:00 AM EST I discussed the care of the patient with Dr. Hillman and I agree with the assessment and plan as outlined. documented in this encounter Plan of Treatment Upcoming Encounters Date Type Department Care Team (Latest Contact Info) Description 06/30/2024 9:45 AM EST Hospital Encounter [place] [address] Flor Velasco MD [facility] [place] [address] 06/30/2024 9:45 AM EST - 06/30/2024 10:45 AM EST [place] [address] Flor Velasco MD [facility] [place] [address] COLONOSCOPY, DIAGNOSTIC (WRVU 3.26) 07/27/2024 8:00 AM EST TH Visit (TeleHealth) [place] [address] Unruly Ramirez MD [facility] [place] [address] 08/03/2024 3:00 PM EST Office Visit Neurology at [address] [phone] Melvin Ramírez MD [facility] [place] [address] 08/25/2024 1:45 PM EDT Office [place] [phone] Keven Church MD [facility] [place] [address] Scheduled Orders Name Type Priority Associated Diagnoses Orde r Schedule ENDOSCOPY CASE REQUEST: EGD, UPPER GI ENDOSCOPY (WRVU 2.09), COLONOSCOPY, DIAGNOSTIC (WRVU 3.26) Procedures Routine Dysphagia, unspecified type Ordered: 06/17/2023 Scheduled Procedures Name Priority Associated Diagnoses Date/Ti me COLONOSCOPY, DIAGNOSTIC (WRV U 3.26) Hematochezia 06/30/2024 9:45 AM EST documented as of this encounter Procedures Procedure Name Priority Date/Time Associated Diagnosis Comments HEMOGRAM Routine 06/17/2023 11:59 AM EST Autoimmune hepatitis CREST (calcinosis, Raynaud's phenomenon, esophageal dysfunction, sclerodactyly, telangiectasia) DIFFERENTIAL, AUTOMATED Routine 06/17/2023 11:59 AM EST Autoimmune hepatitis CREST (calcinosis, Raynaud's phenomenon, esophageal dysfunction, sclerodactyly, telangiectasia) CBC (WITH DIFF) Routine 06/17/2023 11:59 AM EST Autoimmune hepatitis CREST (calcinosis, Raynaud's phenomenon, esophageal dysfunction, sclerodactyly, telangiectasia) COMPREHENSIVE METABOLIC PANEL Routine 06/17/2023 11:59 AM EST Autoimmune hepatitis CREST (calcinosis, Raynaud's phenomenon, esophageal dysfunction, sclerodactyly, telangiectasia) documented in this encounter Results * (ABNORMAL) Differential, Automated (06/17/2023 11:59 AM EST) Neutrophil % 66.4 % [facility] Neutrophil Absolute 3.09 1.70 - 6.10 x10(3)/ L [facility] Lymph % 16.6 % [facility] Lymphocytes Abs 0.8(L) 0.9 - 3.2 x10(3)/[facility] Monocyte % 9.5 % [facility] Monocyte Abs 0.4 0.3 - 0.9 x10(3)/[facility] Eos % 5.4 % [facility] Eosinophils Abs 0.2 0.0 - 0.4 x10(3)/[facility] Basophil % 1.9 % [facility] Baso Absolute 0.1 0.0 - 0.1 x10(3)/[facility] Immature Gran % 0.20 % [facility] Comment: Immature granulocytes(IG's)percentage and absolute count will include metamyelocytes, myelocytes, and promyelocytes. Blood smears from CBCs yielding IG's will be scanned manually for concordance. If this scan disagrees with the automated IG or if promyelocytes are noted, a manual differential will be performed. Immature Gran Absolute 0.01 0.00 - 0.04 x10(3)/[facility] Blood 06/17/2023 11:5 9 AM EST 06/17/2023 12:08 PM EST Narrative Resulting Agency Comment Spec In Lab Herlinda Hillman MD HEMATOLOGY ORDERABLE S [facility] [place] [address] * Hemogram (06/17/2023 11:59 AM EST) White Blood Cell 4.6 4.0 - 9.5 x10(3)/[facility] Red Blood Cell 4.07 4.00 - 5.21 x10(6)/[facility] Hemoglobin 13.0 11.7 - 15.5 g/dL [facility] Hematocrit 37.8 35.7 - 45.8 % [facility] Mean Cell Volume 92.9 82.6 - 94.4 fL [facility] Mean Cell Hemoglobin 31.9 27.1 - 32.0 pg [facility] Mean Cell Hemoglobin Concentration 34.4 31.7 - 35.0 g/dL [facility] Platelet 264 145 - 357 x10(3)/[facility] LABORATORY RDW Standard Deviation 43.3 37.0 - 46.0 fL [facility] RDW coefficient of variation 12.7 11.5 - 14.1 % [facility] Mean Platelet Volume 10.3 7.6 - 12.9 fL [facility] NRBC% auto 0.0 % [facility] NRBC Absolute 0.000 0.000 - 0.000 x10(3)/[facility] Blood 06/17/2023 11:5 9 AM EST 06/17/2023 12:08 PM EST Narrative Resulting Agency Comment Spec In Lab Herlinda Hillman MD HEMATOLOGY ORDERABLE S [facility] [place] [address] * Comprehensive metabolic panel (non-fasting) (06/17/2023 11:59 AM EST) Glucose 96 65 - 199 mg/dL [facility] Comment:Diabetes: >=200 mg/d L plus symptoms Blood Urea Nitrogen 13 8 - 18 mg/dL [facility] Creatinine 0.73 0.70 - 1.20 mg/dL [facility] Sodium 140 135 - 145 mmol/L [facility] Potassium 4.5 3.5 - 5.0 mmol/L [facility] Comment: Please note: ??Patients with WBC >100,000 may have falsely elevated Potassium levels. ??For accurate Potassium quantification in these patients send serum separator tube (gold top) for subsequent determinations. ??Contact the Clinical Chemistry Laboratory if there are any questions. Chloride 105 98 - 107 mmol/L [facility] Carbon Dioxide 26 22 - 31 mmol/L [facility] Anion Gap 9 5 - 15 mmol/L [facility] Calcium 9.6 8.5 - 10.5 mg/dL [facility] Protein, Total 7.2 6.1 - 8.0 g/dL [facility] Albumin 4.8 3.2 - 5.2 g/dL [facility] Aspartate Aminotransferase 17 0 - 30 unit/L [facility] Alanine Aminotransferase 10 0 - 30 unit/L [facility] Alkaline Phosphatase 51 35 - 105 unit/L [facility] Bilirubin, Total 0.2 0.2 - 1.3 mg/dL [facility] Est Glomerular Filtration Rate 101 >=60 mL/min/1. 73 m?? [facility] Comment: This patient's estimated GFR was [...] and symptoms in addition to eGFR. Blood 06/17/2023 11:5 9 AM EST 06/17/2023 12:08 PM EST Narrative Resulting Agency Comment Spec In Lab Toni Esposito MD CHEMISTRY ORDERABLE S Performing Organization Address City/State/[facility] Co de Phone Number [facility] [place] [address] documented in this encounter Visit Diagnoses Diagnosis Autoimmune hepatitis CREST (calcinosis, Raynaud's phenomenon, esophageal dysfunction, sclerodactyly, telangiectasia) Systemic sclerosis Dysphagia, unspecified type Hematochezia Blood in stool documented in this encounter Care Teams Sticker On Relationship Specialty Start Date End Date Geraldo Gracia DNP [address] [place] [address] PCP - General Family Medicine 10/01/22 documented as of this encounter
--- OUTSIDE RECORDS SUMMARY | 2024-06-23 18:19 | XMS_ITS | Encounter Summary ---
[place] [address] Care Team Providers Care Dispensing And Measuring Optician Name Role Phone Geraldo Gracia DNP Primary Care Provider Encounter Details Date Type Department Care Team (Latest Contact Info) Description 04/16/2023 Travel Social History Tobacco Use Types Packs/Day Years Used Date Smoking Tobacco: Former Cigarettes Q uit: 1992 Smokeless Tobacco: Never Comments:In high school smok ed maybe a 0.5 of a cigarette daily Alcohol Use Standard Drinks/Week Comments Yes 0 (1 standard drink = 0.6 oz pur e alcohol) < once a month [facility] Inpatient Questions Answer Date Recorded [...] 9:45 AM EST Hospital Encounter Gastroenterology at [place] [phone] Flor Velasco MD [facility] [place] [address] 06/30/2024 9:45 AM EST - 06/30/2024 10:45 AM EST Surgery Gastroenterology at [address] Flor Velasco MD [facility] [place] [address] COLONOSCOPY, DIAGNOSTIC (WRVU 3.26) 07/27/2024 8:00 AM EST TH Visit (TeleHealth) Gastroenterology at [place] [phone] Unruly Ramirez MD [facility] [place] [address] 08/03/2024 3:00 PM EST Office Visit Neurology at [address] [phone] Melvin Ramírez MD [facility] [place] [address] 08/25/2024 1:45 PM EDT Office Visit Rheumatology at [place] [phone] Keven Church MD [facility] [place] [address] Scheduled Procedures Name Priority Associated Diagnoses Date/Ti me COLONOSCOPY, DIAGNOSTIC (WRV U 3.26) Hematochezia 06/30/2024 9:45 AM EST documented as of this encounter Visit Diagnoses Not on filedocumented in this encounter Care Teams Dispensing And Measuring Optician Relationship Specialty Start Date End Date Geraldo Gracia DNP [address] [place] [address] [place] [address] PCP - General Family Medicine 10/01/22 documented as of this encounter
--- OUTSIDE RECORDS SUMMARY | 2024-06-23 18:19 | XMS_ITS | Encounter Summary ---
[place] [address] Care Team Providers Care Counter Maker Name Role Phone Geraldo Gracia [facility] Primary Care Provider [phone] Reason for Visit * Reason Comments Establish Care * Consultation (Routine) - Closed Specialty Diagnoses / Procedures Referred By Mikaela costa Referred To Contact General Surgery Diagnoses Chronic abdominal pain Herlinda Hillman MD [facility] [place] [address] [facility] Gen Surgery [address] [place] [phone] Referral ID Status Reason Start Date Expiration Date V isits Requested Visits Authorized [id number] Closed Consult, Test & Treat 10/22/2022 10/22/2023 1 1 Encounter Details Date Type Department Care Team (Latest Contact Info) Description 02/04/2023 1:00 PM EDT Office Visit [place] [address] Bernice Espinoza MD [facility] [place] [address] Symptomatic cholelithiasis Social History Tobacco Use Types Packs/Day Years [...] Sign Reading Time Taken Comments Blood Pressure 110/65 02/04/2023 12:56 PM EDT Pulse 95 02/04/2023 12:56 PM EDT Temperature - - Respiratory Rate 18 02/04/2023 12:56 PM EDT Oxygen Saturation 100% 02/04/2023 12:56 PM EDT Inhaled Oxygen Concentration - - Weight 45.4 kg (100 lb) 02/04/2023 12:56 PM EDT Height 157.5 cm (5' 2) 02/04/2023 12:56 PM EDT Body Mass Index 18.29 02/04/2023 12:56 PM EDT documented in this encounter Progress Notes * Bernice Espinoza MD - 02/04/2023 1:00 PM EDT Karolina Olivas is a 47 y.o. female referred [...] Hypothyroid Liver Past Surgical History: Past Surgical History: Procedure Laterality Date HYSTERECTOMY PRO COLONOSCOPY, BIOPSY N/A 11/11/2015 COLONOSCOPY FLEXIBLE, WITH BX performed by Rhett Underwood MD at [facility] ENDOSCOPY PRO COLONOSCOPY, BIOPSY N/A 08/26/2020 COLONOSCOPY FLEXIBLE, WITH BX (WRVU 3.66) performed by Tom Hyatt MD at [facility] ENDOSCOPY PRO COLONOSCOPY, FLEX, W/CONTROL, BLEEDING 08/26/2020 COLONOSCOPY; W CONTROL OF BLEEDING, ANY METHOD performed by Tom Hyatt MD at [facility] ENDOSCOPY PRO UPPER GI ENDOSCOPY, BIOPSY N/A 11/11/2015 EGD WITH BIOPSY performed by Rhett Underwood MD at [facility] ENDOSCOPY PRO UPPER GI ENDOSCOPY, BIOPSY N/A 08/26/2020 EGD WITH BIOPSY (WRVU 2.49) performed by Tom Hyatt MD at [facility] ENDOSCOPY TONSILLECTOMY C section Current Outpatient Medications: [...] and Doxycycline monohydrate Family History: Family History Problem Relation Age of Onset [...] wishes to proceed. documented in this encounter Plan of Treatment Upcoming Encounters Date Type Department Care Team (Latest Contact Info) Description 06/30/2024 9:45 AM EST Hospital Encounter [place] [address] Flor Velasco MD [facility] [place] [address] 06/30/2024 9:45 AM EST - 06/30/2024 10:45 AM EST Surgery Gastroenterology at [place] [phone] Flor Velasco MD [facility] [place] [address] COLONOSCOPY, DIAGNOSTIC (WRVU 3.26) 07/27/2024 8:00 AM EST TH Visit (TeleHealth) Gastroenterology at [place] [phone] Unruly Ramirez MD [facility] [place] [address] 08/03/2024 3:00 PM EST Office Visit Neurology at [address] [phone] Melvin Ramírez MD [facility] [place] [address] 08/25/2024 1:45 PM EDT Office Visit Rheumatology at [place] [phone] Keven Church MD [facility] [place] [address] Scheduled Procedures Name Priority Associated Diagnoses Date/Ti me COLONOSCOPY, DIAGNOSTIC (WRV U 3.26) Hematochezia 06/30/2024 9:45 AM EST Scheduled Referrals Name Type Priority Associated Diagnoses Orde r Schedule Referral to General Surgery Outpatient Referral Routine Chronic abdominal pain Ordered: 10/22/2022 documented as of this encounter Visit Diagnoses Diagnosis Symptomatic cholelithiasis Calculus of gallbladder without mention of cholecystitis or obstruction Hematochezia Blood in stool documented in this encounter Care Teams Counter Maker Relationship Specialty Start Date End Date Geraldo Gracia DNP [address] [place] [phone] PCP - General Family Medicine 10/01/22 documented as of this encounter
--- OUTSIDE RECORDS SUMMARY | 2024-06-23 18:19 | XMS_ITS | Encounter Summary ---
[place] [address] Care Team Providers Care Fire Watchman Name Role Phone Geraldo Gracia DNP Primary Care Provider Encounter Details Date Type Department Care Team (Late st Contact Info) Description 10/22/2022 Telephone [place] [phone] Brittney Hearn Social History Tobacco Use Types Packs/Day Years [...] encounter Miscellaneous Notes * Telephone Encounter - Brittney Hearn - 10/22/2022 1:49 PM EDT Called and lvm for patient including date, time and location of upcoming follow up appointment per Dr. Hillman. (Also included our department's clinic phone number in my message in case patient needs to cancel or reschedule.) Mar 25, 2023 Follow Up Visit with Herlinda Marley MD March 25 at 11:00 AM (Arrive by 10:45 AM) Gastroenterology at [place] [phone] Arrive at: Stereo Plotter Operator Area 4L documented in this encounter Plan of Treatment Upcoming Encounters Date Type Department Care Team (Latest Contact Info) Description 06/30/2024 9:45 AM EST Hospital Encounter Gastroenterology at [place] [phone] Flor Velasco MD [facility] [place] [address] 06/30/2024 9:45 AM EST - 06/30/2024 10:45 AM EST Surgery Gastroenterology at [place] [phone] Flor Velasco MD [facility] [place] [address] COLONOSCOPY, DIAGNOSTIC (WRVU 3.26) 07/27/2024 8:00 AM EST TH Visit (TeleHealth) Gastroenterology at [place] [phone] Unruly Ramirez MD [facility] [place] [address] 08/03/2024 3:00 PM EST Office Visit Neurology at [address] [phone] Melvin Ramírez MD [facility] [place] [address] 08/25/2024 1:45 PM EDT Office Visit Rheumatology at [place] [phone] Keven Church MD [facility] [address] Scheduled Procedures Name Priority Associated Diagnoses Date/Ti me COLONOSCOPY, DIAGNOSTIC (WRV U 3.26) Hematochezia 06/30/2024 9:45 AM EST documented as of this encounter Visit Diagnoses Not on filedocumented in this encounter Care Teams Fire Watchman Relationship Specialty Start Date End Date Geraldo Gracia DNP [address] [place] [phone] PCP - General Family Medicine 10/01/22 documented as of this encounter
--- OUTSIDE RECORDS SUMMARY | 2024-06-23 18:19 | XMS_ITS | Encounter Summary ---
[place] [address] Care Team Providers Care Supervisor [employer] Name Role Phone Geraldo Gracia DNP Primary Care Provider [phone]- [phone] Reason for Visit * Reason Comments Prior Authorization Emgality 120 mg/mL A utoinjector Encounter Details Date Type Department Care Team (Late st Contact Info) Description 02/25/2023 Specialty [place] [phone] Beka Valdez, VAULT CASHIER Social History Tobacco Use Types Packs/Day Years Used Date Smoking Tobacco: Former Cigarettes Q uit: 1992 Smokeless Tobacco: Never Comments:In high school smok ed maybe a 0.5 of a cigarette daily Alcohol Use Standard Drinks/Week Comments Yes 0 (1 standard drink = 0.6 oz pur e alcohol) < once a month [facility] Inpatient Questions Answer Date Recorded Does Anyone [...] of this encounter Progress Notes * Beka Valdez - 02/25/2023 4:32 PM EDT [facility], Medication Prior Authorization Submission Patient: Karolina Olivas Patient : 1975 Patient Address: [address] [place] [phone] Phone: [phone] (home) Medication Name: EMGALITY PEN 120 MG/ML SUBCUTANEOUS PEN INJECTOR Medication ID: [id number] Subscriber Insurance: [employer]) Subscriber Insurance Comment: Physician: CHARLIE AWAN Physician Comment: Sent Via: Fax Brasher: Ref/Case/PA#: Medication Strength Frequency Requested: Inject the contents of one pen (120 mg) subcutaneously once every twenty-eight days Qty/Day Supply: 06/27 New Start: Renewal Diagnosis & ICD-10 Code: G43.009 - Migraine without aura and without status migrainosus, not intractable Patient Notified: No Submission Notes: - LO submitted via fax to [phone] Beka Valdez 02/25/23 4:37 PM * Lillian Clinton - 02/25/2023 4:32 PM EDT [facility], Prior Authorization Approval Medication Name: EMGALITY PEN 120 MG/ML SUBCUTANEOUS PEN INJECTOR Medication ID: [id number] Approval Dates: 02/25/2023 to 02/25/2024 Insurance requirements/notes: None Other Notes: None Case/Reference #: Approval notification Received via: Fax Copay: 0.00 Copay assistance: None Copay Notes: Insurance mandated Pharmacy: Fillable at [facility]: Yes Patient Notified: No Pharmacy staff will be reaching out to the patient to inform them of their medication's approval bytheir insurance. If applicable, a pharmacist will speak with the patient to offer our specialty pharmacy services and to arrange delivery of their medication. Lillian Clinton 02/26/23 9:31 AM documented in this encounter Plan of Treatment Upcoming Encounters Date Type Department Care Team (Latest Contact Info) Description 06/30/2024 9:45 AM EST Hospital Encounter [place] [address] Flor Velasco MD [facility] [place] [address] 06/30/2024 9:45 AM EST - 06/30/2024 10:45 AM EST Surgery [place] [address] Flor Velasco MD [facility] [place] [address] COLONOSCOPY, DIAGNOSTIC (WRVU 3.26) 07/27/2024 8:00 AM EST TH Visit (TeleHealth) [place] [address] Unruly Ramirez MD [facility] [place] [address] 08/03/2024 3:00 PM EST Office Visit Neurology at [address] [phone] Melvin Ramírez MD [facility] [place] [address] 08/25/2024 1:45 PM EDT Office [place] [address] Keven Church MD [facility] [place] [address] Scheduled Procedures Name Priority Associated Diagnoses Date/Ti me COLONOSCOPY, DIAGNOSTIC (WRV U 3.26) Hematochezia 06/30/2024 9:45 AM EST documented as of this encounter Visit Diagnoses Diagnosis Migraine without aura and without status migrainosus, not intractable Migraine without aura, without mention of intractable migraine without mention of status migrainosus Hematochezia Blood in stool documented in this encounter Care Teams Supervisor [employer] Relationship Specialty Start Date End Date Geraldo Gracia DNP [address] [facility] [place] [address] PCP - General Family Medicine 10/01/22 documented as of this encounter
--- OUTSIDE RECORDS SUMMARY | 2024-06-23 18:19 | XMS_ITS | Encounter Summary ---
[place] [address] Care Team Providers Care Mounter Smoking Pipe Name Role Phone Geraldo Gracia DNP Primary Care Provider Encounter Details Date Type Department Care Team (Late st Contact Info) Description 04/16/2023 10:15 AM EST Office [place] [address] Destiney Blanco, CREST syndrome; Medication monitoring encounter; CREST (calcinosis, Raynaud's phenomenon, esophageal dysfunction, sclerodactyly, telangiectasia); Undifferentiated connective tissue disease; Other forms of systemic lupus erythematosus, unspecified organ involvement status; Raynaud's phenomenon without gangrene; High risk medication use Social History Tobacco Use Types Packs/Day Years Used Date Smoking Tobacco: Former Cigarettes Q uit: 1992 Smokeless Tobacco: Never Comments:In high school smok ed maybe a 0.5 of a cigarette daily Alcohol Use Standard Drinks/Week Comments Yes 0 (1 standard drink = 0.6 oz pur e alcohol) < once a month [facility] Inpatient Questions Answer Date Recorded [...] Sign Reading Time Taken Comments Blood Pressure 99/55 04/16/2023 10:06 AM EST Pulse 86 04/16/2023 10:06 AM EST Temperature 36.1 ??C (97 ??F) 04/16/2023 10:06 AM EST Respiratory Rate 16 04/16/2023 10:06 AM EST Oxygen Saturation 100% 04/16/2023 10:06 AM EST Inhaled Oxygen Concentration - - Weight 46.5 kg (102 lb 9.6 oz) 04/16/2023 10:06 AM EST Height 157.5 cm (5' 2.01) 04/16/2023 10:[address] Body Mass Index 18.76 04/16/2023 10:06 AM EST documented in this encounter Patient Instructions * Patient Instructions* Destiney Blanco DO - 04/16/2023 10:15 AM EST Will start medication azathioprine after labs are back documented in this encounter Progress Notes * Destiney Blanco DO - 04/16/2023 10:15 AM EST Rheumatology Outpatient Follow Up Note PCP: NANNETTE Justin is a 47 y.o. female who we are seeing for the continuing management ofSLE/ CREST overlap. Rheum History: #Undifferentiated connective tissue [...] given cream for improvement - ARNULFO at [facility] 1:320 speckled and cytoplasmic, COLBY negative, dsDNA [...] Cellcept, recommend switch to AZA, awaiting labs Vaccine: 1 covid vaccine, declines other vaccines. Eye exam 08/2022: normal Interval History: Had cholecystectomy, no complication. -Has been off of CellCept since January. As noted prior initially fills up the was helpful for her joint pains then over the last few months noted worsening joint stiffness. Reports pain and stiffness in her knees, elbows, bilateral wrists and hands. Occasionally will have associated swelling. Reports pain pretty constant lasting throughout the day, no significant morning stiffness. Reports difficulty with range of motion Due to stiffness. -No shortness of breath dyspnea on exertion, palpitations. -Stable Raynaud's -No increasing stiffness or tightness in the hands or face. ROS (positives in bold): Gen: no fevers, no chills, no night sweats Pulm: no SOB CV: no CP Abd: no abd pain, no nausea, no vomiting, no diarrhea MSK: see HPI Meds and Allergies: Reviewed in eDH Physical exam: BP 99/55 Pulse 86 Temp 36.1 ??C (97 ??F) (Temporal) Resp 16 Ht 157.5 cm (5' 2.01) Wt 46.5 kg (102 lb 9.6 oz) SpO2 100% BMI 18.76 kg/m?? Gen: well appearing, alert and oriented x 3, nad HEENT: NCAT, EOMI, moist mucous membranes, no oral ulcers, normal sclerae Lymph: no cervical LAD Heart: regular rate, no murmurs, rubs or gallops Lungs: clear to auscultation b/l Abd: soft, +bs, NT/ND Skin: warm and dry, no rheumatologic rashes Nails: no nail pitting Joints: Shoulders: FROM, non-tender to palpation Elbows:FROM, pain with range of motion to full extension Wrists: FROM, no swelling, non-tender Hands: No synovitis, no MCP compression tenderness, full claw and fist Hips: FROM, no tenderness Knees: FROM, no effusion, no tenderness, pain with range of motion to full extension Ankles: FROM, non-tender, no effusion Feet: no [...] worsening arthralgias, morningstiffness in her hands, elbows. Discussed trialing azathioprine. Could also consider Benlysta givenoverlap syndrome. We will forward check CBC CMP TPMT level if normal will start on azathioprine 50 mg daily and titrate up as tolerated to 2.5 mg.kg (75 mg daily). Plan - Labs today: CBC, CMP, CBC - If TPMT level normal- will start azathioprine 50 mg daily, labs in 1 month, if tolerating can increase to 75 mg daily - echo ordered to monitor for Pulm HTN. - follow up in 3 months - PFTs due October 2023 Patient was discussed with Dr. Morales Blanco DO Rheumatology Fellow Pager: [phone] * Luis Bradley MD - 04/16/2023 10:15 AM EST The patient's history was reviewed, with Dr. Blanco, the rheumatology fellow. History of present illness and diagnosis discussed. Chief complaint and review of systems reviewed. Physical exam findings, serologic testing, and diagnostic imaging reviewed. I agree with her summary, findings, diagnosticand therapeutic plans. Luis Bradley MD Staff Pest Control Service Sales Agent documented in this encounter Miscellaneous Notes * Addendum Note - Destiney Blanco DO - 04/16/2023 10:15 AM ESTAddended by: DESTINEY BLANCO on: 04/16/2023 01:27 PM Modules accepted: Level of Service documented in this encounter Plan of Treatment Upcoming Encounters Date Type Department Care Team (Latest Contact Info) Description 06/30/2024 9:45 AM EST Hospital En[place] [phone] Flor Velasco MD [facility] [place] [address] 06/30/2024 9:45 AM EST - 06/30/2024 10:45 AM EST Surgery Gastroenterology at [place] [phone] Flor Velasco MD [facility] [place] [address] COLONOSCOPY, DIAGNOSTIC (WRVU 3.26) 07/27/2024 8:00 AM EST TH Visit (TeleHealth) [place] [phone] Unruly Ramirez MD [facility] [place] [address] 08/03/2024 3:00 PM EST Office Visit Neurology at [address] [phone] Melvin Ramírez MD [facility] [place] [address] 08/25/2024 1:45 PM EDT Office [place] [address] Keven Church MD [facility] [address] Scheduled Procedures Name Priority Associated Diagnoses Date/Ti il COLONOSCOPY, DIAGNOSTIC (WRV U 3.26) Hematochezia 06/30/2024 9:45 AM EST documented as of this encounter Procedures Procedure Name Priority Date/Time Associated Diagnosis Comments TPMT ACTIVITY PROFILE, RBC Routine 04/16/2023 10:47 AM EST CREST syndrome Medication monitoring encounter CYTOPLASMIC NEUTROPHILIC AB Routine 04/16/2023 10:47 AM EST CREST syndrome PROTEINASE-3 ANTIBODY Routine 04/16/2023 10:47 AM EST CREST syndrome MYELOPEROXIDASE AB Routine 04/16/2023 10 :47 AM EST CREST syndrome HEMOGRAM Routine 04/16/2023 10:47 AM EST CREST syndrome Medication monitoring encounter DIFFERENTIAL, AUTOMATED Routine 04/16/20 10:47 AM EST CREST syndrome Medication monitoring encounter CBC (WITH DIFF) Routine 04/16/2023 10:47 AM EST CREST syndrome Medication monitoring encounter COMPREHENSIVE METABOLIC PANEL Routine 04/16/2023 10:47 AM EST CREST syndrome Medication monitoring encounter documented in this encounter Results * Differential, Automated (04/16/2023 10:47 AM EST) Neutrophil % 64.7 % [facility] Neutrophil Absolute 3.44 1.70 - 6.10 x10(3)/[facility] LAB[facility] Lymph % 17.9 % [facility] Lymphocytes Abs 1.0 0.9 - 3.2 x10(3)/[facility] Monocyte % 10.2 % [facility] Monocyte Abs 0.5 0.3 - 0.9 x10(3)/[facility] Eos % 4.9 % [facility] Eosinophils Abs 0.3 0.0 - 0.4 x10(3)/[facility] Basophil % 2.1 % [facility] Baso Absolute 0.1 0.0 - 0.1 x10(3)/[facility] Immature Gran % 0.20 % [facility] Comment: Immature granulocytes(IG's)percentage and absolute count will include metamyelocytes, myelocytes, and promyelocytes. Blood smears from CBCs yielding IG's will be scanned manually for concordance. If this scan disagrees with the automated IG or if promyelocytes are noted, a manual differential will be performed. Immature Gran Absolute 0.01 0.00 - 0.04 x10(3)/[facility] Blood 04/16/2023 10:4 7 AM EST 04/16/2023 10:53 AM EST Narrative Resulting Agency Comment Spec In Lab Destiney Blanco DO HEMATOLOGY ORDERABLE S [facility] [place] [address] * Hemogram (04/16/2023 10:47 AM EST) White Blood Cell 5.3 4.0 - 9.5 x10(3)/[facility] Red Blood Cell 4.10 4.00 - 5.21 x10(6)/[facility] Hemoglobin 13.1 11.7 - 15.5 g/dL [facility] Hematocrit 38.7 35.7 - 45.8 % [facility] Mean Cell Volume 94.4 82.6 - 94.4 fL [facility] Mean Cell Hemoglobin 32.0 27.1 - 32.0 pg [facility] Mean Cell Hemoglobin Concentration 33.9 31.7 - 35.0 g/dL [facility] Platelet 275 145 - 357 x10(3)/[facility] RDW Standard Deviation 43.3 37.0 - 46.0 fL [facility] RDW coefficient of variation 12.4 11.5 - 14.1 % [facility] Mean Platelet Volume 10.5 7.6 - 12.9 fL [facility] NRBC% auto 0.0 % [facility] NRBC Absolute 0.000 0.000 - 0.000 x10(3)/[facility] Blood 04/16/2023 10:4 7 AM EST 04/16/2023 10:53 AM EST Narrative Resulting Agency Comment Spec In Lab Destiney Blanco DO HEMATOLOGY ORDERABLE S Performing Organization Address [facility] de Phone Number [facility] [place] [address] * Cytoplasmic Neutrophilic Ab (04/16/2023 10:47 AM EST) C-Anca (SEPTEMBER) Negative Negative [facility] Comment: Test Performed by: [facility] [place] [address] Arboriculture Instructor: Shay Low M.D. Ph.D.; CLIA# [id number] P-Anca (SEPTEMBER) Negative Negative [facility] Comment: Negative for cANCA and pANCA patterns by immunofluorescence. ADDITIONAL INFORMATION This test was developed and its performance characteristics determined by [facility] in a manner consistent with CLIA requirements. This test has not been cleared or approved by the U.S. Food and Drug Administration. Test Performed by: [facility] [place] [address] Arboriculture Instructor: Shay Low M.D. Ph.D.; CLIA# [id number] Blood 04/16/2023 10:4 7 AM EST 04/16/2023 3:59 PM EST Narrative Resulting Agency Comment Spec In Lab Sandhya Mendoza DO LAB SEND OUT ORDER DEANNE Performing Organization Address [facility] Co de Phone Number [facility] [place] [address] * Myeloperoxidase Ab (04/16/2023 10:47 AM EST) Myeloperoxidase Antibody 0.6 <=3.4 unit/mL [facility] Blood 04/16/2023 10:4 7 AM EST 04/16/2023 12:23 PM EST Narrative Resulting Agency Comment Spec In Lab Sandhya D Reji DO IMMUNOLOGY ORDERAB LES Performing Organization Address City/[facility]/ZIP Co de Phone Number [facility] [place] [address] * Proteinase-3 Antibody (04/16/2023 10:47 AM EST) Proteinase 3 Antibody <0.6 <=1.9 unit/mL [facility] Blood 04/16/2023 10:4 7 AM EST 04/16/2023 12:23 PM EST Narrative Resulting Agency Comment Spec In Lab Sandhya Mendoza DO IMMUNOLOGY ORDERAB LES Performing Organization Address [facility] Co de Phone Number [facility] [place] [address] * Comprehensive metabolic panel (non-fasting) (04/16/2023 10:47 AM EST) Glucose 80 65 - 199 mg/dL [facility] Comment:Diabetes: >=200 mg/d L plus symptoms Blood Urea Nitrogen 8 8 - 18 mg/dL [facility] Creatinine 0.76 0.70 - 1.20 mg/dL [facility] Sodium 140 135 - 145 mmol/L [facility] Potassium 4.5 3.5 - 5.0 mmol/L [facility] Comment: Please note: ??Patients with WBC >100,000 may have falsely elevated Potassium levels. ??For accurate Potassium quantification in these patients send serum separator tube (gold top) for subsequent determinations. ??Contact the Clinical Chemistry Laboratory if there are any questions. Chloride 104 98 - 107 mmol/L [facility] Carbon Dioxide 28 22 - 31 mmol/L [facility] Anion Gap 8 5 - 15 mmol/L [facility] Calcium 9.3 8.5 - 10.5 mg/dL [facility] Protein, Total 7.0 6.1 - 8.0 g/dL [facility] Albumin 4.6 3.2 - 5.2 g/dL [facility] Aspartate Aminotransferase 28 0 - 30 unit/L [facility] Alanine Aminotransferase 25 0 - 30 unit/L [facility] Alkaline Phosphatase 50 35 - 105 unit/L [facility] Bilirubin, Total 0.3 0.2 - 1.3 mg/dL [facility] Est Glomerular Filtration Rate 97 >=60 mL/min/1. 73 m?? [facility] Comment: This patient's estimated GFR was [...] and symptoms in addition to eGFR. Blood 04/16/2023 10:4 7 AM EST 04/16/2023 10:53 AM EST Narrative Resulting Agency Comment Spec In Lab Luis Bradley MD CHEMISTRY ORDERABLES Performing Organization Address City/State/[facility] Co de Phone Number [facility] [place] [address] * TPMT Activity Profile, RBC (04/16/2023 10:47 AM EST) Tpmt Activity Profile, Rbc (MAY) Test ? Result ?Flag ??Unit ? RefValue TPMT Activity Profile, RBC ??Interpretation ? SEE COMMENTS ?*Normal* In this whole blood sample, the profile of ?activity of thiopurine methyltransferase using three ?different substrates was normal or essentially normal. ? -ADDITIONAL INFORMATION--------- ?Liquid Chromatography-Tande m Mass Spectrometry (LC-MS/MS) ?This test was developed and its performance characteristics ?determined by [facility] in a manner consistent with CLIA ?requirements. This test has not been cleared or approved by ?the U.S. Food and Drug Administration. ??6-Methylmercaptopu rine ? 4.05 ?nmol/mL/h ??3.00-6.66 ??6-Methylmercaptopu rine riboside ?6.70 ?nmol/mL/h ??5.04-9.57 ??6-Methylthioguanin e riboside ? 2.83 ?nmol/mL/h ??2.70-5.84 ??Reviewed By ?Sirena Arechiga, PhD ?Test Performed by: ?[facility] ?[address] [place] [address] ?Arboriculture Instructor: Shay Low M.D. Ph.D.; CLIA# [id number] [facility] Blood 04/16/2023 10:4 7 AM EST 04/16/2023 10:58 AM EST Narrative Resulting Agency Comment Spec In Lab Luis Bradley MD LAB SEND OUT ORDERAB LES [facility] [place] [address] documented in this encounter Visit Diagnoses Diagnosis CREST syndrome Systemic sclerosis Medication monitoring encounter Encounter for therapeutic drug monitoring CREST (calcinosis, Raynaud's phenomenon, esophageal dysfunction, sclerodactyly, telangiectasia) Systemic sclerosis Undifferentiated connective tissue disease Unspecified diffuse connective tissue disease Other forms of systemic lupus erythematosus, unspecified organ involvement status Raynaud's phenomenon without gangrene High risk medication use Encounter for long-term (current) use of other medications Hematochezia Blood in stool documented in this encounter Care Teams Mounter Smoking Pipe Relationship Specialty Start Date End Date Geraldo Gracia DNP [address] [place] [id number] PCP - General Family Medicine 10/01/22 documented as of this encounter
--- OUTSIDE RECORDS SUMMARY | 2024-06-23 18:19 | XMS_ITS | Encounter Summary ---
[place] [address] Care Team Providers Care Senior Bioinformatics Scientist Name Role Phone Geraldo Gracia DNP Primary Care Provider Encounter Details Date Type Department Care Team (Late st Contact Info) Description 06/21/2023 Telephone [place] [phone] Yajaira Santos Social History Tobacco Use Types Packs/Day Years [...] encounter Miscellaneous Notes * Telephone Encounter - Yajaira Santos - 06/21/2023 9:37 AM EST Karolina Olivas [phone] Diagnosis/Indication: Dysphagia (hx of CREST),screening (prior colonoscopy with poor prep) Please review patient chart to confirm if [...] these questions) Have you ever had a/an Upper Endoscopy & Colonoscopy before? Yes: Date 08/26/20 If yes, did you have any problems with the procedure (such as waking up during the procedure, pain or difficulties afterwards, etc.)? Yes: Please Explain: pt woke up What type of sedation was used: IV Conscious Sedation Do you take any blood thinners or have you been diagnosed with a bleeding disorder that increases your risk of bleeding with procedures? No Do you have a Pacemaker or Defibrillator device? If yes, send pool message to Cardiology with patient information and date or procedure. No Are you a diabetic? If yes, call PCP/managing provider to discuss use of prep and any questions or concerns related to. No Do you take any iron supplements or vitamins that contain iron? No Do you have a preference regarding the [...] a period of time? No Do you take prescription narcotic pain medications, including suboxone or methodone? No SCHEDULING CONFIRMATIONS: Please note any and [...] NEW referral patient; skip this question if GI provider ordered the procedure.) No Is there any other information or concerns you would like to us to share with your care team in relation to your upcoming scheduled procedure? Yes: pt states woke up during last Endoscopy You must have a responsible republican who will drive you to your procedure, stay on campus for the entire duration of your procedure, and drive you home from your procedure. Who will likely be your refuse driver for the procedure? *Please Verify the height and weight, and adjust if height and/or weight have changed* Estimated body mass index is 19.31 kg/m?? as calculated from the following: Height as of 06/17/23: 157.5 cm (5' 2.01). Weight as of 06/17/23: 47.9 kg (105 lb 9.6 oz). Age:47 y.o. documented in this encounter Plan of Treatment Upcoming Encounters Date Type Department Care Team (Latest Contact Info) Description 06/30/2024 9:45 AM EST Hospital Encounter [place] [address] Flor Velasco MD [facility] [place] [address] 06/30/2024 9:45 AM EST - 06/30/2024 10:45 AM EST Surgery [place] [address] Flor Velasco MD [facility] [place] [address] COLONOSCOPY, DIAGNOSTIC (WRVU 3.26) 07/27/2024 8:00 AM EST TH Visit (TeleHealth) [place] [address] Unruly Ramirez MD [facility] [place] [address] 08/03/2024 3:00 PM EST Office Visit Neurology at [place] [address] [place] [phone] Melvin Ramírez MD [facility] [place] [address] 08/25/2024 1:45 PM EDT Office [place] [phone] Keven Church MD [facility] [place] [address] Scheduled Procedures Name Priority Associated Diagnoses Date/Ti me COLONOSCOPY, DIAGNOSTIC (WRV U 3.26) Hematochezia 06/30/2024 9:45 AM EST documented as of this encounter Visit Diagnoses Not on filedocumented in this encounter Care Teams Senior Bioinformatics Scientist Relationship Specialty Start Date End Date Geraldo Gracia DNP [address] [place] [phone] PCP - General Family Medicine 10/01/22 documented as of this encounter
--- OUTSIDE RECORDS SUMMARY | 2024-06-23 18:19 | XMS_ITS | Encounter Summary ---
[place] [address] Care Team Providers Care Toxics Program Officer Name Role Phone Geraldo Gracia DNP Primary Care Provider [phone] Reason for Visit * Auth/Cert (Routine) Specialty Diagnoses / Procedures Referred By Mikaela t Referred To Contact Diagnoses Symptomatic cholelithiasis SYMPTOMATIC GALLSTONES Procedures PRO LAP, CHOLECYSTECTOMY/GRAPH LAPAROSCOPIC CHOLECYSTECTOMY WITH CHOLANGIOGRAM (WRVU 11.47) Nehemiah Espinoza MD [facility] [place] [address] [facility] Referral ID Status Reason Start Date Expiration Date Visits Re quested Visits Authorized [id number] 1 1 Encounter Details Date Type Department Care Team (Latest Contact Info) Description 02/25/2023 7:08 AM EDT - 02/25/2023 12:20 PM EDT Hospital Encounter [place] [address] Nehemiah Espinoza MD [facility] [place] [address] Discharge Disposition: Home Social History Tobacco Use [...] Sign Reading Time Taken Comments Blood Pressure 113/68 02/25/2023 12:00 PM EDT Pulse 77 02/25/2023 12:00 PM EDT Temperature 36.5 ??C (97.7 ??F) 02/25/2023 1 2:10 PM EDT Respiratory Rate 14 02/25/2023 12:0 0 PM EDT Oxygen Saturation 100% 02/25/2023 12: 00 PM EDT Inhaled Oxygen Concentration - - Weight 46.6 kg (102 lb 12.8 oz) 02/25/2023 7:39 AM EDT Height 157.5 cm (5' 2) 02/25/2023 7:39 AM EDT Body Mass Index 18.8 02/25/2023 7:39 AM EDT documented in this encounter Discharge Instructions * Patient Instructions* Conner Walsh MD - 02/25/2023 11:06 AM EDT [facility] Department of Surgery Discharge Instructions CALL [...] with the Surgery nurses. The number is [phone]. - During the night or weekends call the [facility] slabbing machine operator at [phone] and ask to speak to the surgery resident sonographer for general surgery. Please note: Your surgeon may not be Restaurant Assistant, especially during the night or on weekends, so be ready to describe yourself and your surgery when you call. Follow up appointments: Future Appointments Date Time Provider Department Center 03/24/2023 4:30 PM Nehemiah Espinoza MD [facility] SURG [facility] 04/16/2023 10:15 AM Destiney Blanco DO [facility] RHEUM [facility] 10/28/2023 11:30 AM Herlinda Hillman MD [facility] GASTRO [facility] [x] Follow-up appointment with General Surgery has already been scheduled. Please call the clinic at [phone] to confirm or reschedule. [] A request for a follow-up appointment has been made and you should receive information via phone/mail in the next week. If you do not hear anything, please call the clinic at [phone] to confirm or reschedule. If you need a prior authorization, please call the General Surgery Clinic nurses [phone] for prior authorizations assistance documented in this [...] BX performed by Rhett Underwood MD at [facility] PRO COLONOSCOPY, BIOPSY N/A 08/26/2020 COLONOSCOPY FLEXIBLE, WITH BX (WRVU 3.66) performed by Tom Hyatt MD at [facility] PRO COLONOSCOPY, FLEX, W/CONTROL, BLEEDING 08/26/2020 COLONOSCOPY; W CONTROL OF BLEEDING, ANY METHOD performed by Tom Hyatt MD at [facility] PRO UPPER GI ENDOSCOPY, BIOPSY N/A 11/11/2015 EGD WITH BIOPSY performed by Rhett Underwood MD at [facility] PRO UPPER GI ENDOSCOPY, BIOPSY N/A 08/26/2020 EGD WITH BIOPSY (WRVU 2.49) performed by Tom Hyatt MD at [facility] TONSILLECTOMY C section Current Outpatient [...] Espinoza MD - 02/25/2023 9:29 AM EDT [facility] Operative Note Patient Name: Karolina Olivas : [id number] MR#: [id number] Case Date: 02/25/2023 Surgeon: Surgeon(s) and Role: [...] 9:45 AM EST Hospital [place] [address] Flor Velasco MD [facility] [place] [address] 06/30/2024 9:45 AM EST - 06/30/2024 10:45 AM EST [place] [address] Flor Velasco MD [facility] [place] [address] COLONOSCOPY, DIAGNOSTIC (WRVU 3.26) 07/27/2024 8:00 AM EST TH Visit (TeleHealth) [place] [phone] Unruly Ramirez MD [facility] [place] [address] 08/03/2024 3:00 PM EST Office Visit Neurology at [facility] [address] [place] [address] Melvin Ramírez MD [facility] [place] [address] 08/25/2024 1:45 PM EDT Office [place] [address] Keven Church MD [facility] [place] [address] Scheduled Procedures Name Priority Associated Diagnoses Date/Ti [...] 10:15 AM EDT Unlisted Laparoscopic Px Lvr (05180) Yes 02/25/2023 8:58 AM EDT SYMPTOMATIC GALLSTONES Lap, Cholecystectomy/Graph (29194) Yes 02/25/2023 8:58 AM EDT SYMPTOMATIC GALLSTONES [...] AM EDT 02/25/2023 10:27 AM EDT Narrative [facility] - 02/25/2023 10:27 AM EDT Specimen requisition ordered. ??Separate Pathology report to follow Nehemiah Espinoza MD PATHOLOGY/CYTOLOGY ORDERABLES Performing Organization Address [facility] [place] [place] [address] * Specimen to Pathology (02/25/2023 10:16 AM EDT) AP Specimen 02/25/2023 10:1 6 AM EDT 02/25/2023 10:16 AM EDT Narrative [facility] - 02/25/2023 10:16 AM EDT Specimen requisition ordered. ??Separate Pathology report to follow Nehemiah Espinoza MD PATHOLOGY/CYTOLOGY ORDERABLES Performing Organization Address [facility] [place] [address] * Specimen to Pathology (02/25/2023 10:16 AM EDT) AP Specimen 02/25/2023 10:1 6 AM EDT 02/25/2023 10:16 AM EDT Narrative [facility] - 02/25/2023 10:16 AM EDT Specimen requisition ordered. ??Separate Pathology report to follow Nehemiah Espinoza MD PATHOLOGY/CYTOLOGY ORDERABLES Performing Organization Address [facility] [place] [place] [address] * Surgical Pathology Report (02/25/2023 10:15 AM EDT) Final Diagnosis [id number] ? Location: [facility]; [facility]; A The signing pathologist has (i) examined [...] Smitha Verified: ??03/12/2023 11:20 ??Pathologist Performed at: ??-[facility] Dept. of Pathology, [place] [address] Medical Transcriber: Yesi Liu MD, FCAP, ??CLIA Certificate: [id number] ADDITIONAL STUDIES Whole slide scan: [id number] A1-1,2 SPECIMEN(S) SUBMITTED A - right lobe [...] hepatic margin is inked black Sections/Processi ng: Facility Supervisor sections in 1 cassettes as follows: ?B1: ??cystic duct margin and enrollment eligibility representative mucosa. C - Labeled/Fixative: Mesentery nodule right upper quadrant, fresh. . SPECIMEN PROCESSING Quantity/Size: Single, 0.3 x 0.2 cm. Tissue Description: Soft, casas-white tissue. Sections/Processi ng: Entirely submitted in 1 cassette labeled C1. ??pps 03/12/2023 11:20 AM EDT [facility] LIVER STRUCTURE / Unknown 02/25/2023 10:15 AM EDT 02/25/2023 10:15 AM EDT GALLBLADDER STRUCTURE / Unknown 02/25/2023 10:15 AM EDT 02/25/2023 10:15 AM EDT GI Biopsy 02/25/2023 10:1 5 AM EDT 02/25/2023 10:15 AM EDT Nehemiah Espinoza MD PATHOLOGY/CYTOLOGY ORDERABLES [facility] [place] [address] [facility] [address] documented in this encounter Visit Diagnoses Not on filedocumented in this encounter Administered Medications Inactive Administered Medications - up to 3 most recent administrations Medication Order MAR Action Action Date Dose Rate Site ketorolac (Toradol) (15 mg/mL) injection 15 mg [...] Routine documented in this encounter Care Teams Toxics Program Officer Relationship Specialty Start Date End Date Geraldo Gracia DNP [address] [place] [address] PCP - General Family Medicine 10/01/22 documented as of this encounter
--- OUTSIDE RECORDS SUMMARY | 2024-06-23 18:19 | XMS_ITS | Encounter Summary ---
Author Organization [facility] [place] [address] Care Team Providers Care Barrel Bung Remover And Dumper Name Role Phone Geraldo Gracia [facility] Primary Care Provider [phone] Encounter Details Date Type Department Care Team (Latest Contact Info) Description 02/04/2023 Travel Social History Tobacco Use Types Packs/Day [...] 9:45 AM EST Hospital Encounter Gastroenterology [place] [address] Flor Velasco MD [facility] [place] [address] 06/30/2024 9:45 AM EST - 06/30/2024 10:45 AM EST Surgery Gastroenterology [place] [address] Flor Velasco MD [facility] [place] [address] COLONOSCOPY, DIAGNOSTIC (WRVU 3.26) 07/27/2024 8:00 AM EST TH Visit (TeleHealth) Gastroenterology at [place] [phone] Unruly Ramirez MD [facility] DR [place]STRO[place] [address] 08/03/2024 3:00 PM EST Office Visit Neurology at [address] [address] Melvin Ramírez MD [facility] [address] 08/25/2024 1:45 PM EDT Office Visit Rheumatology [place] [address] Keven Church MD [facility] [place] [address] Scheduled Procedures Name Priority Associated Diagnoses Date/Ti me COLONOSCOPY, DIAGNOSTIC (WRV U 3.26) Hematochezia 06/30/2024 9:45 AM EST documented as of this encounter Visit Diagnoses Not on filedocumented in this encounter Care Teams Barrel Bung Remover And Dumper Relationship Specialty Start Date End Date Geraldo Gracia DNP [address] [place] [address] PCP - General Family Medicine 10/01/22 documented as of this encounter
--- OUTSIDE RECORDS SUMMARY | 2024-06-23 18:19 | XMS_ITS | Encounter Summary ---
Author Organization [facility] [place] [address] Care Team Providers Care Rehabilitation Center Manager Name Role Phone Geraldo Gracia [facility] Primary Care Provider Encounter Details Date Type Department Care Team (Latest Contact Info) Description 02/10/2023 Travel Social History Tobacco Use Types Packs/Day [...] 9:45 AM EST Hospital Encounter [place] [address] Flor Velasco MD [facility] [place] [address] 06/30/2024 9:45 AM EST - 06/30/2024 10:45 AM EST Surgery [place] [address] Flor Velasco MD [facility] [place] [address] COLONOSCOPY, DIAGNOSTIC (WRVU 3.26) 07/27/2024 8:00 AM EST TH Visit (TeleHealth) Gastroenterology at [place] [phone] Unruly Ramirez MD [facility] DR [place] [address] 08/03/2024 3:00 PM EST Office Visit Neurology at [address] [address] Melvin Ramírez MD [facility] [place] [address] 08/25/2024 1:45 PM EDT Office [place] [address] Keven Church MD [facility] [place] [address] Scheduled Procedures Name Priority Associated Diagnoses Date/Ti me COLONOSCOPY, DIAGNOSTIC (WRV U 3.26) Hematochezia 06/30/2024 9:45 AM EST documented as of this encounter Visit Diagnoses Not on filedocumented in this encounter Care Teams Rehabilitation Center Manager Relationship Specialty Start Date End Date Geraldo Gracia DNP [address] [place] [address] PCP - General Family Medicine 10/01/22 documented as of this encounter
--- OUTSIDE RECORDS SUMMARY | 2024-06-23 18:19 | XMS_ITS | Encounter Summary ---
[place] [address] Care Team Providers Care Wine Consultant Name Role Phone Geraldo Gracia [facility] Primary Care Provider [phone] Encounter Details Date Type Department Care Team (Late st Contact Info) Description 02/11/2023 10:45 AM EDT Office [place] [address] Destiney Blanco, DO CREST syndrome; Medication monitoring encounter; Raynaud's phenomenon without gangrene; High risk medication use; Undifferentiated connective tissue disease Social History Tobacco [...] Sign Reading Time Taken Comments Blood Pressure 102/64 02/11/2023 10:42 AM EDT Pulse 95 02/11/2023 10:42 AM EDT Temperature 36.9 ??C (98.5 ??F) 02/11/2023 10:42 AM E DT Respiratory Rate 16 02/11/2023 10:42 AM EDT Oxygen Saturation 100% 02/11/2023 10:42 AM EDT Inhaled Oxygen Concentration - - Weight 45.1 kg (99 lb 6.4 oz) 02/11/2023 10:42 A M EDT Height 157.5 cm (5' 2) 02/11/2023 10:42 AM EDT Body Mass Index 18.18 02/11/2023 10:42 AM EDT documented in this encounter Patient Instructions * Patient Instructions* Destiney Blanco DO - 02/11/2023 10:45 AM EDT -Message me in 2 weeks with how you felt off Cellcept documented in this encounter Progress Notes * Destiney Blanco DO - 02/11/2023 10:45 AM EDT Rheumatology Outpatient Follow Up Note PCP: NANNETTE Justin Brendon is a 47 y.o. female who we are seeing for the continuing management ofCREST/ SLE overlap . 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 Eye exam 08/2022: normal Interval History: Reports continued arthralgias of hands, elbows and left knee. Associated morning stiffness. Reportsstiffness in hands throughout the day. No swelling. Initially CellCept was helpful in improving joint arthralgias but over the last month or so feels that arthralgias have worsened. Reports episode 2weeks ago of facial rash-notes a raised red rash over her cheeks, resolved after few days. No noted prolonged sun exposure. -Raynaud's is well controlled -Intermittent episodes of constipation. Notes intermittent abdominal pain. Planning to have gallbladder out in 2 weeks. -Weight stable. -No digital ulcers. Dyspnea on exertion shortness of breath ROS (positives in bold): Gen: no fevers, no chills, no night sweats Pulm: no SOB CV: no CP Abd: no abd pain, no nausea, no vomiting, no diarrhea MSK: see HPI Meds and Allergies: Reviewed in eDH Physical exam: BP 102/64 (BP Location (NBP): Right arm, Patient Position: Sitting, BP Cuff Sizes: Small Adult (20-26 cm)) Pulse 95 Temp 36.9 ??C (98.5 ??F) (Temporal) Resp 16 Ht 157.5 cm (5' 2) Wt 45.1 kg (99 lb 6.4 oz) SpO2 100% BMI 18.18 kg/m?? Gen: well appearing, alert and oriented x 3, nad, thin female HEENT: NCAT, EOMI, moist mucous membranes, no oral ulcers, normal sclerae Heart: regular rate, no murmurs, rubs or gallops Lungs: clear to auscultation b/l Abd: soft, +bs, NT/ND Skin: warm and dry, slight tightness of skin over the face, I do not appreciate any sclerodactyly on hands or feet. No digital ulcers. 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 During subsequent evaluations, repeat ARNULFO panel showedcentromere pattern and an anticentromere antibody was checked which is elevated, suggesting patientmay be developing CREST syndrome like picture-with Raynaud's, GI dysmotility. She does not have anyperipheral sclerodactyly but does have tightness of skin [...] few months she has noted worsening arthralgias, morning stiffness in her hands, elbows. She is planning to undergo cholecystectomy in 2 weeks. Wewill have patient hold CellCept 1 week prior to procedure and then 1 week after. Patient will evaluate whether arthralgias worsen off of this medication. If there is no change noted consider using Imuran. Given history of SLE like picture we will check complements today CBC CMP. Given patient's history of liver fibrosis, positive anti-smooth muscle antibody, now with abdominalpain possible biliary colic this would raise concern for primary sclerosing cholangitis. This can be associated with crest syndrome and anti-smooth muscle antibody. Request pathology from gallbladder. We will also check p-ANCA today. Plan Labs-CBC CMP, urine protein creatinine ratio, C3-C4, p-ANCA -Hold CellCept x2 weeks for cholecystectomy -Send message in 2 weeks with response off of CellCept. - follow up in 2 months. Patient was discussed with Dr. Reji Blanco DO Rheumatology Fellow Pager: [phone] documented in this encounter Plan of Treatment Upcoming Encounters Date Type Department Care Team (Latest Contact Info) Description 06/30/2024 9:45 AM EST Hospital Encounter [place] [address] Flor Velasco MD [facility] [place] [address] 06/30/2024 9:45 AM EST - 06/30/2024 10:45 AM EST Surgery [place] [phone] Flor Velasco MD [facility] [place] [address] COLONOSCOPY, DIAGNOSTIC (WRVU 3.26) 07/27/2024 8:00 AM EST TH Visit (TeleHealth) [place] [phone] Unruly Ramirez MD [facility] [place] [address] 08/03/2024 3:00 PM EST Office Visit Neurology at [address] [phone] Melvin Ramírez MD [facility] [place] [address] 08/25/2024 1:45 PM EDT Office [place] [address] Keven Church MD [facility] [place] [address] Scheduled Procedures Name Priority Associated Diagnoses Date/Ti me COLONOSCOPY, DIAGNOSTIC (WRV U 3.26) Hematochezia 06/30/2024 9:45 AM EST documented as of this encounter Procedures Procedure Name Priority Date/Time Associated Diagnosis Comments PROTEIN/CREATININE RATIO, URINE Routine 02/11/2023 12:01 PM EDT CREST syndrome Medication monitoring encounter Raynaud's phenomenon without gangrene HEMOGRAM Routine 02/11/2023 11:40 AM EDT CREST syndrome Medication monitoring encounter Raynaud's phenomenon without gangrene DIFFERENTIAL, AUTOMATED Routine 02/11/2023 11:40 AM EDT CREST syndrome Medication monitoring encounter Raynaud's phenomenon without gangrene CBC (WITH DIFF) Routine 02/11/2023 11:40 AM EDT CREST syndrome Medication monitoring encounter Raynaud's phenomenon without gangrene C3 COMPLEMENT Routine 02/11/2023 11:40 AM EDT CREST syndrome Medication monitoring encounter Raynaud's phenomenon without gangrene C4 COMPLEMENT Routine 02/11/2023 11:40 AM EDT CREST syndrome Medication monitoring encounter Raynaud's phenomenon without gangrene COMPREHENSIVE METABOLIC PANEL Routine 02/11/2023 11:40 AM EDT CREST syndrome Medication monitoring encounter Raynaud's phenomenon without gangrene documented in this encounter Results * Proteinase-3 Antibody (04/16/2023 10:47 AM EST) Proteinase 3 Antibody <0.6 <=1.9 unit/mL [facility] Blood 04/16/2023 10:4 7 AM EST 04/16/2023 12:23 PM EST Narrative Resulting Agency Comment Spec [facility]ES Performing Organization Address City/[facility]/ZIP Co de Phone Number [facility] [place] [address] * Myeloperoxidase Ab (04/16/2023 10:47 AM EST) Myeloperoxidase Antibody 0.6 <=3.4 unit/mL [facility] Blood 04/16/2023 10:4 7 AM EST 04/16/2023 12:23 PM EST Narrative Resulting Agency Comment Spec In Lab Sandhya D [facility] IMMUNOLOGY ORDERAB LES Performing Organization Address City/[facility]/ZIP Co de Phone Number [facility] [place] [address] * Cytoplasmic Neutrophilic Ab (04/16/2023 10:47 AM EST) C-Anca (SEPTEMBER) Negative Negative [facility] Comment: Test Performed by: [facility] [address] [place] [address] Paper Roller: Shay Low M.D. Ph.D.; CLIA# [id number] P-Anca (SEPTEMBER) Negative Negative [facility] Comment: Negative for cANCA and pANCA patterns by immunofluorescence. ADDITIONAL INFORMATION This test was developed and its performance characteristics determined by [facility] in a manner consistent with CLIA requirements. This test has not been cleared or approved by the U.S. Food and Drug Administration. Test Performed by: [facility] [address] [place] [address] Paper Roller: Shay Low M.D. Ph.D.; CLIA# [id number] Blood 04/16/2023 10:4 7 AM EST 04/16/2023 3:59 PM EST Narrative Resulting Agency Comment Spec In Lab Sandhya Mendoza DO LAB SEND OUT ORDER DEANNE Performing Organization Address [facility] Co de Phone Number [facility] [place] [address] * Protein/Creatinine Ratio, urine (02/11/2023 12:01 PM EDT) Creatinine, Urine 146 mg/dL [facility] Protein, Urine 10 0 - 12 mg/dL [facility] Protein / Creatinine Ratio, Urine <0.[address] [facility] Urine 02/11/2023 12:0 1 PM EDT 02/11/2023 12:22 PM EDT Narrative Resulting Agency Comment Spec In Lab Sandhya Mendoza DO URINE ORDERABLES Performing Organization Address [facility] Co de Phone Number [facility] [place] [address] * (ABNORMAL) Differential, Automated (02/11/2023 11:40 AM EDT) Neutrophil % 71.0 % [facility] Neutrophil Absolute 3.47 1.70 - 6.10 x10(3)/mc L [facility] Lymph % 15.2 % [facility] Lymphocytes Abs 0.7(L) 0.9 - 3.2 x10(3)/mc L [facility] Monocyte % 8.6 % [facility] Monocyte Abs 0.4 0.3 - 0.9 x10(3)/[facility] Eos % 2.7 % [facility] Eosinophils Abs 0.1 0.0 - 0.4 x10(3)/[facility] Basophil % 2.3 % [facility] Baso Absolute 0.1 0.0 - 0.1 x10(3)/[facility] Immature Gran % 0.20 % [facility] Comment: Immature granulocytes(IG's)percentage and absolute count will include metamyelocytes, myelocytes, and promyelocytes. Blood smears from CBCs yielding IG's will be scanned manually for concordance. If this scan disagrees with the automated IG or if promyelocytes are noted, a manual differential will be performed. Immature Gran Absolute 0.01 0.00 - 0.04 x10(3)/[facility] Blood 02/11/2023 11:4 0 AM EDT 02/11/2023 12:25 PM EDT Narrative Resulting Agency Comment Spec In Lab Destiney Blanco DO HEMATOLOGY ORDERABLE S Performing Organization Address City/State/[facility] Co de Phone Number [facility] [place] [address] * Hemogram (02/11/2023 11:40 AM EDT) White Blood Cell 4.9 4.0 - 9.5 x10(3)/[facility]ORAT[facility] Red Blood Cell 4.26 4.00 - 5.21 x10(6)/[facility] Hemoglobin 13.3 11.7 - 15.5 g/dL [facility] Hematocrit 39.7 35.7 - 45.8 % [facility] Mean Cell Volume 93.2 82.6 - 94.[address] [facility] Mean Cell Hemoglobin 31.2 27.1 - 32.[address] [facility] Mean Cell Hemoglobin Concentration 33.5 31.7 - 35.0 g/dL [facility] Platelet 261 145 - 357 x10(3)/[facility]ORATORY RDW Standard Deviation 41.5 37.0 - 46.0 fL [facility] RDW coefficient of variation 12.2 11.5 - 14.1 % [facility] Mean Platelet Volume 10.8 7.6 - 12.9 fL [facility] NRBC% auto 0.0 % [facility] NRBC Absolute 0.000 0.000 - 0.000 x10(3)/mcL [facility] Blood 02/11/2023 11:4 0 AM EDT 02/11/2023 12:25 PM EDT Narrative Resulting Agency Comment Spec In Lab Destiney Blanco DO HEMATOLOGY ORDERABLE S Performing Organization Address [facility] Co de Phone Number [facility] [place] [address] * C4 Complement (02/11/2023 11:40 AM EDT) Complement C4 13 10 - 40 mg/dL [facility] Blood 02/11/2023 11:4 0 AM EDT 02/11/2023 12:25 PM EDT Narrative Resulting Agency Comment Spec In Lab Sandhya Mendoza DO CHEMISTRY ORDERABL ES Performing Organization Address [facility] Co de Phone Number [facility] [place] [address] * C3 Complement (02/11/2023 11:40 AM EDT) Complement C3 90 90 - 180 mg/dL [facility] Blood 02/11/2023 11:4 0 AM EDT 02/11/2023 12:25 PM EDT Narrative Resulting Agency Comment Spec In Lab Sandhya Mendoza DO CHEMISTRY ORDERABL ES Performing Organization Address [facility] Co de Phone Number [facility] [place] [address] * (ABNORMAL) Comprehensive metabolic panel (non-fasting) (02/11/2023 11:40 AM EDT) Glucose 93 65 - 199 mg/dL [facility] Comment:Diabetes: >=200 mg/d L plus symptoms Blood Urea Nitrogen 11 8 - 18 mg/dL [facility] Creatinine 0.78 0.70 - 1.20 mg/dL [facility] Sodium 139 135 - 145 mmol/L [facility] Potassium 4.4 3.5 - 5.0 mmol/L [facility] Comment: Please note: ??Patients with WBC >100,000 may have falsely elevated Potassium levels. ??For accurate Potassium quantification in these patients send serum separator tube (gold top) for subsequent determinations. ??Contact the Clinical Chemistry Laboratory if there are any questions. Chloride 103 98 - 107 mmol/L [facility] Carbon Dioxide 28 22 - 31 mmol/L [facility] Anion Gap 8 5 - 15 mmol/L [facility] Calcium 9.1 8.5 - 10.5 mg/dL [facility] Protein, Total 7.1 6.1 - 8.0 g/dL [facility] Albumin 4.7 3.2 - 5.2 g/dL [facility] Aspartate Aminotransferase 15 0 - 30 unit/L [facility] Alanine Aminotransferase 11 0 - 30 unit/L [facility] Alkaline Phosphatase 44 35 - 105 unit/L [facility] Bilirubin, Total <0.2(L) 0.2 - 1.3 mg/dL [facility] Est Glomerular Filtration Rate 94 >=60 mL/min/1. 73 m?? [facility] Comment: This patient's estimated GFR [...] and symptoms in addition to eGFR. Blood 02/11/2023 11:4 0 AM EDT 02/11/2023 12:25 PM EDT Narrative Resulting Agency Comment Spec In Lab Sandhya Mendoza DO CHEMISTRY ORDERABL ES [facility] [place] [address] documented in this encounter Visit Diagnoses Diagnosis CREST syndrome Systemic sclerosis Medication monitoring encounter Encounter for therapeutic drug monitoring Raynaud's phenomenon without gangrene High risk medication use Encounter for long-term (current) use of other medications Undifferentiated connective tissue disease Unspecified diffuse connective tissue disease Hematochezia Blood in stool documented in this encounter Care Teams Wine Consultant Relationship Specialty Start Date End Date Geraldo Gracia DNP [address] [place] [id number] PCP - General Family Medicine 10/01/22 documented as of this encounter
--- OUTSIDE RECORDS SUMMARY | 2024-06-23 18:19 | XMS_ITS | Encounter Summary ---
[place] [address] Care Team Providers Care Special Education Classroom Aide Name Role Phone Geraldo Gracia DNP Primary Care Provider Reason for Visit * Reason Comments Specialty Pharmacy Review Belimumab (Andre lysta) 200mg/mL Autoinjector Encounter Details Date Type Department Care Team (Late st Contact Info) Description 03/09/2023 Specialty [place] [phone] Krysta Arnold, HYDRA[employer]IC GOVERNOR ASSEMBLER Social History Tobacco Use Types Packs/Day Years Used Date Smoking Tobacco: Former Cigarettes Q uit: 1992 Smokeless Tobacco: Never Comments:In high school smok ed maybe a 0.5 of a cigarette daily Alcohol Use Standard Drinks/Week Comments Yes 0 (1 standard drink = 0.6 oz pur e alcohol) < once a month [facility] Inpatient Questions Answer Date Recorded [...] this encounter Progress Notes * Krysta Arnold - 03/09/2023 9:00 AM EDT The [facility] has completed a benefits investigation for Karolina Olvias to review their eligibility to fill at [facility]. Per patient's medication list they are prescribed Benlysta and the medication is not able to be filled at the [facility]. documented in this encounter Plan of Treatment Upcoming Encounters Date Type Department Care Team (Latest Contact Info) Description 06/30/2024 9:45 AM EST Hospital En[place] [address] Flor Velasco MD [facility] [place] [address] 06/30/2024 9:45 AM EST - 06/30/2024 10:45 AM EST [place] [address] Flor Velasco MD [facility] [place] [address] COLONOSCOPY, DIAGNOSTIC (WRVU 3.26) 07/27/2024 8:00 AM EST TH Visit (TeleHealth) [place] [address] Unruly Ramirez MD [facility] [place] [address] 08/03/2024 3:00 PM EST Office Visit Neurology at [address] [address] Melvin Ramírez MD [facility] [address] [place] [address] 08/25/2024 1:45 PM EDT Office Visit Rheumatology at [facility] [place] [address] Keven Church MD [facility] [place] [address] Scheduled Procedures Name Priority Associated Diagnoses Date/Ti me COLONOSCOPY, DIAGNOSTIC (WRV U 3.26) Hematochezia 06/30/2024 9:45 AM EST documented as of this encounter Visit Diagnoses Not on filedocumented in this encounter Care Teams Special Education Classroom Aide Relationship Specialty Start Date End Date Geraldo Gracia DNP [address] [place] [address] PCP - General Family Medicine 10/01/22 documented as of this encounter
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
--- OUTSIDE RECORDS SUMMARY | 2024-06-23 18:19 | XMS_ITS | Encounter Summary ---
[place] [address] Care Team Providers Care Transporter Driver Name Role Phone Geraldo Gracia DNP Primary Care Provider Encounter Details Date Type Department Care Team (Latest Contact Info) Description 04/11/2023 Travel Social History Tobacco Use Types Packs/Day Years Used Date Smoking Tobacco: Former Cigarettes Q uit: 1992 Smokeless Tobacco: Never Comments:In high school smok ed maybe a 0.5 of a cigarette daily Alcohol Use Standard Drinks/Week Comments Yes 0 (1 standard drink = 0.6 oz pur e alcohol) < once a month [facility] Inpatient Questions Answer Date Recorded Does Anyone [...] 9:45 AM EST Hospital Encounter Gastroenterology at [place] [phone] Flor Velasco MD [facility] [place] [address] 06/30/2024 9:45 AM EST - 06/30/2024 10:45 AM EST Surgery Gastroenterology at [address] Flor Velasco MD [facility] [place] [address] COLONOSCOPY, DIAGNOSTIC (WRVU 3.26) 07/27/2024 8:00 AM EST TH Visit (TeleHealth) Gastroenterology at [place] [phone] Unruly Ramirez MD [facility] [place] [address] 08/03/2024 3:00 PM EST Office Visit Neurology at [address] [phone] Melvin Ramírez MD [facility] [place] [address] [place] [address] 08/25/2024 1:45 PM EDT Office Visit Rheumatology at [place] [phone] Keven Church MD [facility] [place] [address] Scheduled Procedures Name Priority Associated Diagnoses Date/Ti me COLONOSCOPY, DIAGNOSTIC (WRV U 3.26) Hematochezia 06/30/2024 9:45 AM EST documented as of this encounter Visit Diagnoses Not on filedocumented in this encounter Care Teams Transporter Driver Relationship Specialty Start Date End Date Geraldo Gracia DNP [address] [place] [address] [place] [address] PCP - General Family Medicine 10/01/22 documented as of this encounter
--- OUTSIDE RECORDS SUMMARY | 2024-06-23 18:19 | XMS_ITS | Encounter Summary ---
[place] [address] Care Team Providers Care Waterproofing Supervisor Name Role Phone Geraldo Gracia DNP Primary Care Provider Encounter Details Date Type Department Care Team (Latest Contact Info) Description 06/17/2023 Travel Social History Tobacco Use Types Packs/Day Years Used Date Smoking Tobacco: Former Cigarettes Q uit: 1992 Smokeless Tobacco: Never Comments:In high school smok ed maybe a 0.5 of a cigarette daily Alcohol Use Standard Drinks/Week Comments Yes 0 (1 standard drink = 0.6 oz pur e alcohol) < once a month [facility] Inpatient Questions Answer Date Recorded [...] 9:45 AM EST Hospital Encounter Gastroenterology at [place] [phone] Flor Velasco MD [facility] [place] [address] 06/30/2024 9:45 AM EST - 06/30/2024 10:45 AM EST Surgery Gastroenterology at [address] Flor Velasco MD [facility] [place] [address] COLONOSCOPY, DIAGNOSTIC (WRVU 3.26) 07/27/2024 8:00 AM EST TH Visit (TeleHealth) Gastroenterology at [place] [phone] Unruly Ramirez MD [facility] [place] [address] 08/03/2024 3:00 PM EST Office Visit Neurology at [address] [phone] Melvin Ramírez MD [facility] [place] [address] 08/25/2024 1:45 PM EDT Office Visit Rheumatology at [place] [phone] Keven Church MD [facility] [place] [address] Scheduled Procedures Name Priority Associated Diagnoses Date/Ti me COLONOSCOPY, DIAGNOSTIC (WRV U 3.26) Hematochezia 06/30/2024 9:45 AM EST documented as of this encounter Visit Diagnoses Not on filedocumented in this encounter Care Teams Waterproofing Supervisor Relationship Specialty Start Date End Date Geraldo Gracia DNP [address] [place] [address] [place] [address] PCP - General Family Medicine 10/01/22 documented as of this encounter
--- OUTSIDE RECORDS SUMMARY | 2024-06-23 18:20 | XMS_ITS | Encounter Summary ---
[place] [address] Care Team Providers Care Computer Equipment Repairer Name Role Phone Geraldo Gracia DNP Primary Care Provider Reason for Visit * Reason Onset Date Comments Medication Refill 03/02/2022 Encounter Details Date Type Department Care Team (Late st Contact Info) Description 03/02/2022 [place] [address] Herlinda Hillman MD [facility] [place] [address] Social History Tobacco Use Types Packs/Day Years [...] (Latest Contact Info) Description 06/30/2024 9:45 AM [facility] Hospital [place] [address] Flor Velasco MD [facility] [place] [address] 06/30/2024 9:45 AM EST - 06/30/2024 10:45 AM EST Surgery Gastroenterology at [place] [address] Flor Velasco MD [facility] [place] [address] COLONOSCOPY, DIAGNOSTIC (WRVU 3.26) 07/27/2024 8:00 AM EST TH Visit (TeleHealth) [place] [address] Unruly Ramirez MD [facility] [place] [address] 08/03/2024 3:00 PM EST Office Visit Neurology at [address] [phone] Melvin Ramírez MD [facility] [place] [address] 08/25/2024 1:45 PM EDT Office Visit Rheumatology at [place] [phone] Keven Church MD [facility] [place] [address] Scheduled Procedures Name Priority Associated Diagnoses Date/Ti me COLONOSCOPY, DIAGNOSTIC (WRV U 3.26) Hematochezia 06/30/2024 9:45 AM EST documented as of this encounter Visit Diagnoses Not on filedocumented in this encounter Care Teams Computer Equipment Repairer Relationship Specialty Start Date End Date Geraldo Gracia DNP [address] [place] [address] PCP - General Family Medicine 07/17/21 09/30/22 documented as of this encounter
--- OUTSIDE RECORDS SUMMARY | 2024-06-23 18:20 | XMS_ITS | Encounter Summary ---
[place] [address] Care Team Providers Care Fitter Tacker Name Role Phone Geraldo Gracia DNP Primary Care Provider Reason for Visit * Reason Onset Date Comments Prior Authorization 01/07/2022 Encounter Details Date Type Department Care Team (Late st Contact Info) Description 01/07/2022 Telephone [place] [phone] Herlinda Hillman MD [facility] [place] [address] Prior Authorization Social History Tobacco Use Types Packs/Day Years [...] 9:45 AM EST Hospital Encounter [place] [address] Flor Velasco MD [facility] [place] [address] 06/30/2024 9:45 AM EST - 06/30/2024 10:45 AM EST Surgery Gastroenterology at [place] [address] Flor Velasco MD [facility] [place] [address] COLONOSCOPY, DIAGNOSTIC (WRVU 3.26) 07/27/2024 8:00 AM EST TH Visit (TeleHealth) [place] [address] Unruly Ramirez MD [facility] [place] [address] 08/03/2024 3:00 PM EST Office Visit Neurology at [address] [phone] Melvin Ramírez MD [facility] [place] [address] 08/25/2024 1:45 PM EDT Office Visit Rheumatology at [place] [phone] Keven Church MD [facility] [address] Scheduled Procedures Name Priority Associated Diagnoses Date/Ti me COLONOSCOPY, DIAGNOSTIC (WRV U 3.26) Hematochezia 06/30/2024 9:45 AM EST documented as of this encounter Visit Diagnoses Not on filedocumented in this encounter Care Teams Fitter Tacker Relationship Specialty Start Date End Date Geraldo Gracia DNP [address] [place] [address] PCP - General Family Medicine 07/17/21 09/30/22 documented as of this encounter
--- OUTSIDE RECORDS SUMMARY | 2024-06-23 18:20 | XMS_ITS | Encounter Summary ---
[place] [address] Care Team Providers Care Field Property Loss Specialist Name Role Phone Geraldo Gracia DNP Primary Care Provider Encounter Details Date Type Department Care Team (Late st Contact Info) Description 10/22/2022 3:30 PM EDT Office Visit Neurology at [address] [phone] Elizabeth Banerjee APRN [facility] [place] [address] Migraine without aura and without status migrainosus, not intractable Social History Tobacco Use Types Packs/Day Years [...] Sign Reading Time Taken Comments Blood Pressure 103/45 10/22/2022 3:12 PM EDT Pulse 90 10/22/2022 3:12 PM EDT Temperature - - Respiratory Rate - - Oxygen Saturation - - Inhaled Oxygen Concentration - - Weight 45.4 kg (100 lb) 10/22/2022 3:12 PM EDT Height 157.5 cm (5' 2) 10/22/2022 3:12 PM EDT r eported Body Mass Index 18.29 10/22/2022 3:12 PM EDT documented in this encounter Progress Notes * Elizabeth Banerjee, COUPLES THERAPIST - 10/22/2022 3:30 PM EDT [facility] Headache Follow Up Progress Note Karolina Olivas is a 47 y.o., right handed female She has a past medical history of insomnia, celiac disease, anxiety, depression, liver fibrosis, hysterectomy 2/2 abnormal uterine bleeding, chronic pericardial effusion in 2018, costochondritis, pectus excavatum, intersitial cystitis, hypothyroidism, and [...] abdominal pain. She then remembers headaches in but they were occasional. Again in her 20s,headaches occasional and she had visual aura of zig zags but then her aura stopped 17 years ago after the of her child. In her 30s [...] and grossly elevated TPO >900. Since emgality days of headaches Prior to emgality, she was having 30/ days of headaches 10/20/22 5 days mild. Patient Reported: 10/20/2022 6:46 PM [...] every 28 days September 2020 Pain/Mood/Other Medications: ?? Amitriptyline 25 mg interstitial cystites for years now ?? Cymbalta 30 mg for joint pain ?? Trazodone 25 mg nightly ?? Magnesium 1Gm for sleep and constipation ?? Melatonin 3 mg nightly ?? PRN Headache/Other Medications: ?? Tylenol PRN occ ?? Interval History: Last visit: 07/16/21 590 days of headaches, mild Emgality Follow Up [facility] Date you began using Emgality: [...] Side effects: Denies Wearing off effect: denies Medications Tried ([x] checked have been tried [...] [] Doxycycline [] Lidocaine patch (Lidoderm) [] Dunreith [] Memantine (Namenda) [] Montelukast (Singulair) [] [...] [] Acupuncture [] Acupressure [] Biofeedback [] Railroader [] Cognitive Behavioral Therapy [] Craniosacral therapy [...] Substances: [] Acetaminophen/Codeine (Tylenol #3) [] Acetaminophen/Hydrocodone ([place]/Vicodin) [] Acetaminophen/Oxycodone (Percocet) [] Butorphanol (Ketamine/Stadol) [] Carisoprodol (Soma) [] Fentanyl [] Hydrocodone [] Hydromorphone (Dilaudid) [] Marijuana [] Morphine (MS Contin) [] Oxycodone [] Tramadol (Ultram) [] Zolpidem (Ambien) Medications: Current Outpatient Medications Medication Sig Dispense Refill [...] No current facility-administered medications for this visit. Allergy: Allergies Allergen Reactions ??? Gluten Nausea And Vomiting, Rash and Other (See Comments) Also stomach aches very bad ??? Codeine Phosphate CIS - Nausea/Vomiting ??? Doxycycline Monohydrate CIS - HANDS GET NUMB Physical Exam: BP 103/45 Pulse 90 Ht 157.5 cm (5' 2) Comment: reported Wt 45.4 kg (100 lb) BMI 18.29 kg/m?? Constitutional: NAD, well groomed, mood flat Neuro exam: MSE: alert, oriented to person, place, time, situation, follows simple and complex commands, speechfluent with no dysarthria, able to repeat a sentence, names objects. CN: no facial droop or asymmetry Gait: normal stride Diagnostic Tests and Imaging: None needed at this time Current Headache Medications (new in bold): Emgality 120 mg SQ every 28 days September 2020 ?? Pain/Mood/Other Medications: ?? Amitriptyline 25 mg interstitial cystites for years now ?? Cymbalta 30 mg for joint pain ?? Trazodone 25 mg nightly ?? Magnesium 1Gm for sleep and constipation ?? Melatonin 3 mg nightly ?? PRN Headache/Other Medications: ?? Tylenol PRN occ Assessment and plan: Karolina Olivas is a 45 y.o., right handed female with a past medical history of insomnia, celiac disease, anxiety, depression, liver fibrosis, hysterectomy 2/2 abnormal uterine bleeding, chronic pericardial effusion in 2017, costochondritis, pectus excavatum, intersitial cystitis, hypo thyroidism, [...] without aura, not intractable, without status migrainosus I have spent 15 minutes for this visit was spent in F2F time with this patient, documentation and coordination of care. Elizabeth Banerjee APRN, [facility] Neurology - Headache Clinic documented in this encounter Plan of Treatment Upcoming Encounters Date Type Department Care Team (Latest Contact Info) Description 06/30/2024 9:45 AM EST Hospital En[place] [phone] Flor Velasco MD [facility] [place] [address] 06/30/2024 9:45 AM EST - 06/30/2024 10:45 AM EST Surgery Gastroenterology at [place] [phone] Flor Velasco MD [facility] [place] [address] COLONOSCOPY, DIAGNOSTIC (WRVU 3.26) 07/27/2024 8:00 AM EST TH Visit (TeleHealth) Gastroenterology at [place] [phone] Unruly Ramirez MD [facility] [place] [address] 08/03/2024 3:00 PM EST Office Visit Neurology at [address] [phone] Melvin Ramírez MD [facility] [place] [address] 08/25/2024 1:45 PM EDT Office Visit Rheumatology at [place] [phone] Keven Church MD [facility] [address] Scheduled Procedures Name Priority Associated Diagnoses Date/Ti me COLONOSCOPY, DIAGNOSTIC (WRV U 3.26) Hematochezia 06/30/2024 9:45 AM EST documented as of this encounter Visit Diagnoses Diagnosis Migraine without aura and without status migrainosus, not intractable Migraine without aura, without mention of intractable migraine without mention of status migrainosus Hematochezia Blood in stool documented in this encounter Care Teams Field Property Loss Specialist Relationship Specialty Start Date End Date Geraldo Gracia DNP [address] [place] [id number] PCP - General Family Medicine 10/01/22 documented as of this encounter
--- OUTSIDE RECORDS SUMMARY | 2024-06-23 18:20 | XMS_ITS | Encounter Summary ---
Author Organization [facility] Address [facility] [place] [address] Care Team Providers Care Legal Records Clerk Name Role Phone Geraldo Gracia DNP Primary Care Provider Encounter Details Date Type Department Care Team (Latest Contact Info) Description 12/23/2021 11:55 AM EDT Laboratory Appointment Lab [address] [place] [address] Autoimmune hepatitis Social History Tobacco Use Types Packs/Day Years [...] 9:45 AM EST Hospital Encounter [place] [phone] Flor Velasco MD [facility] [place] [address] 06/30/2024 9:45 AM EST - 06/30/2024 10:45 AM EST Surgery Gastroenterology at [place] [phone] Flor Velasco MD [facility] [place] [address] COLONOSCOPY, DIAGNOSTIC (WRVU 3.26) 07/27/2024 8:00 AM EST TH Visit (TeleHealth) [place] [phone] Unruly Ramirez MD [facility] [place] [address] 08/03/2024 3:00 PM EST Office Visit Neurology at [address] [phone] Melvin Ramírez MD [facility] [place] [address] 08/25/2024 1:45 PM EDT Office [place] [phone] Keven Church MD [facility] [place] [address] Scheduled Procedures Name Priority Associated Diagnoses Date/Ti me COLONOSCOPY, DIAGNOSTIC (WRV U 3.26) Hematochezia 06/30/2024 9:45 AM EST documented as of this encounter Procedures Procedure Name Priority Date/Time Associated Diagnosis Comments HC VENIPUNCTURE Routine 12/23/2021 12:15 PM EDT Autoimmune hepatitis documented in this encounter Results * (ABNORMAL) Hepatic Function Panel (12/23/2021 12:15 PM EDT) Protein, Total 7.1 6.1 - 8.0 g/dL [facility] Albumin 4.5 3.2 - 5.2 g/dL [facility] Aspartate Aminotransferase 17 0 - 30 unit/L [facility] Alanine Aminotransferase 15 0 - 30 unit/L [facility] Alkaline Phosphatase 43 35 - 105 unit/L [facility] Bilirubin, Total <0.2(L) 0.2 - 1.3 mg/dL [facility] Bilirubin, Direct 0.1 0.0 - 0.3 mg/dL [facility] Blood 12/23/2021 12:1 5 PM EDT 12/23/2021 12:29 PM EDT Narrative Resulting Agency Comment Spec In Lab Karly Aiken MD CHEMISTRY ORDERAB LES Performing Organization Address City/State/[facility] Co de Phone Number [facility] [place] [address] documented in this encounter Visit Diagnoses Diagnosis Autoimmune hepatitis Hematochezia Blood in stool documented in this encounter Care Teams Legal Records Clerk Relationship Specialty Start Date End Date Geraldo Gracia DNP [address] [place] [address] PCP - General Family Medicine 07/17/21 09/30/22 documented as of this encounter
--- OUTSIDE RECORDS SUMMARY | 2024-06-23 18:20 | XMS_ITS | Encounter Summary ---
[place] [address] Care Team Providers Care Motor Builder Winder Name Role Phone Geraldo Gracia DNP Primary Care Provider Reason for Referral * Physical Therapy (Routine) - Closed Specialty Diagnoses / Procedures Referred By Mikaela costa Referred To Contact Diagnoses Chronic pain in right shoulder Destiney Blanco DO [facility] [place] [address] Referral ID Status Reason Start Date Expiration Date V isits Requested Visits Authorized [id number] Closed Evaluate and Treat Non PCP 12/23/2021 06/21/2022 12 12 Encounter Details Date Type Department Care Team (Late st Contact Info) Description 12/23/2021 12:45 PM EDT [place] [address] Destiney Blanco DO Chronic pain in right shoulder (Primary Dx) Social History Tobacco Use Types Packs/Day Years [...] Sign Reading Time Taken Comments Blood Pressure 102/55 12/23/2021 12:31 PM EDT Pulse 92 12/23/2021 12:31 PM EDT Temperature 36.8 ??C (98.2 ??F) 12/23/2021 12:31 PM E DT Respiratory Rate 16 12/23/2021 12:31 PM EDT Oxygen Saturation 100% 12/23/2021 12:31 PM EDT Inhaled Oxygen Concentration - - Weight 47.6 kg (105 lb) 12/23/2021 12:31 PM EDT Height 157.5 cm (5' 2) 12/23/2021 12:31 PM EDT Body Mass Index 19.2 12/23/2021 12:31 PM EDT documented in this encounter Patient Instructions * Patient Instructions* Destiney Blanco DO - 12/23/2021 12:45 PM EDT -Referral to PT today for R shoulder pain - Continue Plaquenil - Topical Voltaren gel for joint pain, if needed Ibuprofen or Naprosyn. Call for sooner appointment if needed for R shoulder injection documented in this encounter Progress Notes * Destiney Blanco DO - 12/23/2021 12:45 PM EDT Rheumatology Outpatient Follow Up Note PCP: AVA Justin is a 46 y.o. 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 #Anti-smooth muscle ab positivity, stage 1 liver fibrosis, ?autoimmune hepatitis #Subclinical hypothyroidism 2/2 Alberto's thyroiditis?? -??fatigue,??arthralgias??(mostly in left knee, ankle, right wrist, and back) worse with activity - slight erythematous rash on nose and tops of cheeks, comes/goes, usually in the morning, sometimes ->??appeared to be roseaca in nature -??questionable photosensitivity,??episode 2 years ago of having painful spots with swelling after wearing shorts, in the sun for 20 minute, lasted for one week, given cream for improvement - ARNULFO at [facility] 1:320 speckled and cytoplasmic, COLBY negative,??dsDNA negative,??anti-mitochondrial negative, +anti-smooth muscle 1:160, C3 mildly low [...] Gi dysmotility .- consistent withCREST/SLE overlap. - TTE11/03/2021: Normal echo, Normal RV systolic pressure - CT chest: 11/03/21: Mild apical scaring - PFTs: Awaiting report - Currently on Plaquenil 200mg daily, Nifedipine 30mg PRN Interval History: -At last visit patient prescribed nifedipine 30 mg for Raynaud's, she did not started this medication, asymptomatic with her Raynaud's during the summertime. No digital ulcers. Patient also noted to continue to have arthralgias of multiple joints, she had an intra-articular steroid injection of her right shoulder at last visit (3 months ago). Today, patient reports continued pain in the right shoulder, worse with range of motion, use, at night. She denies any formal physical therapy but has been doing some home exercises. Occasionally will take a naproxen with some relief. Patient also reports mild pain in her hands, right second and third MCP PIP are the most symptomatic. No swelling. Less than 30 minutes of morning stiffness in the m orning.she also reports left knee pain worse with use, bilateral elbow pain elbows noted at night. -Patient denies rash today but notes she has rash over extensor surface of arms, cheeks if she goesout in the sun, described with redness. Notes she feels sick in the sun. -Denies reflux symptoms, shortness of breath, daily cough, dyspnea on exertion. Pt saw GI, Dr. Hillman for abd pain and bloating, possible dysmotility related to CREST- she was started on Linzess, but has not started medication yet ROS (positives in bold): Gen: Reports fatigue no fevers, no chills, no night sweats HEENT: No oral ulcers, dry eyes dry mouth Pulm: no SOB, cough CV: no CP Abd: Denies reflux, reports intermittent abdominal pain abnormal bloating no abd pain, no nausea, no vomiting, no diarrhea MSK: see HPI Meds and Allergies: Reviewed in eDH Physical exam: BP 102/55 (BP Location (NBP): Left arm, Patient Position: Sitting, BP Cuff Sizes: Small Adult (20-26 cm)) Pulse 92 Temp 36.8 ??C (98.2 ??F) (Temporal) Resp 16 Ht 157.5 cm (5' 2) Wt 47.6 kg(105 lb) SpO2 100% BMI 19.20 kg/m?? Gen: well appearing, alert and oriented x 3, nad HEENT: NCAT, EOMI, moist mucous membranes, no oral ulcers, normal sclerae Lymph: no cervical LAD Heart: regular rate, no murmurs, rubs or gallops Lungs: clear to auscultation b/l Abd: soft, +bs, NT/ND Skin: warm and dry, no rheumatologic rashes Nails: no nail pitting, no capillary dilatation or dropout appreciated Joints: Shoulders: Right shoulder with reduced range of motion in abduction, internal and external rotation, tender over biceps tendon, posterior aspect of the shoulder. No warmth or swelling. Elbows:FROM Wrists: FROM, no swelling, non-tender Hands: No synovitis, no MCP compression tenderness, full claw and fist Hips: FROM, no tenderness Knees: FROM, no effusion, no tenderness Ankles: FROM, non-tender, no effusion Feet: no MTP compression tenderness, no swelling in MTP/DIP/PIPs Labs/Studies: Reviewed. Component Latest Ref Rng & Units 09/18/2021 dsDNA Ab <30.0 (Negative) IU/mL <12.3 CRP <=4.9 mg/L <3.0 Sed Rate 2 - 37 mm/hr 10 C4 Complement 10 - 40 mg/dL 11 C3 Complement 90 - 180 mg/dL 84 (L) Antinuclear Ab 1:320- Centromere pattern SS-a <0.2 SS-B <0.2 Sm Ab < 0.2 Scl 70 ab <0.2 Jo1 ab <0.2 HEALTH INFORMATION TECHNOLOGIST ab <0.2 TTE11/03/2021: Normal echo, Normal RV systolic pressure - CT chest: 11/03/21: Mild apical scaring Assessment/Plan: Karolina Olivas is a 46 y.o. 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 Patient initially presented with symptoms [...] doeshave a positive anti-smooth muscle antibody. During her last evaluation, repeat ARNULFO panel showed centromere pattern and an anticentromere antibody was checked which is elevated, suggesting patient may be developing CREST syndrome like picture-with Raynaud's, esophageal dysmotility. No evidence of pulmonary hypertension on echocardiogram 2021, ILD on chest CT. Today patient's main complaint is right shoulder pain, she did have a normal x-ray at outside hospital, suspect component of her pain is related to frozen shoulder given exam findings rather than her lupus-like syndrome.. As she just hadintra- articular glucocorticoid injection 3 months ago with only 1 month of symptom relief I feel would be more beneficial to have formal PT evaluation and treatment. Can consider intra-articular steroid injection again after physical therapy. We can also consider trial of low-dose prednisone to seeif that would help her joint pain as that may be more suggestive of inflammatory SLE picture. Givenher hx of liver fibrosis but would need to discuss with GI if Methotrexate is an option for her. #Undifferentiated connective tissue disease, SLE/Crest overlap #Right frozen shoulder Plan - Continue Plaquenil 20 mg daily - Referral to Physical Therapy for R shoulder pain/frozen shoulder - PRN NSAIDs and topical Diclofenac gel for joint pain - If no improved in shoulder pain in 1month after starting Physical therapy, can repeat steroid injection. Patient was told to call for sooner appointment if needed. - Request PFT records for [facility] - Eye exam up to date- 07/2021 to monitor for Plaquenil toxicity. - plan for repeat TTE 10/2022, annual PFTs, chest CT every 2 years Follow-up in 4 months Patient was discussed with Dr. Wan Blanco DO, PGY4 Rheumatology Fellow Pager: [phone] * Wan Lino MD - 12/23/2021 12:45 PM EDT ATTENDING ADDENDUM The patient's history was reviewed, and I interviewed and examined the patient with Destiney Blanco DO, the rheumatology fellow. I agree with her summary, findings, and plan. Wan Lino MD Staff Healthcare Specialist documented in this encounter Plan of Treatment Upcoming Encounters Date Type Department Care Team (Latest Contact Info) Description 06/30/2024 9:45 AM EST Hospital [place] [address] Flor Velasco MD [facility] [place] [address] 06/30/2024 9:45 AM EST - 06/30/2024 10:45 AM EST Surgery Gastroenterology at [place] [phone] Flor Velasco MD [facility] [place] [address] COLONOSCOPY, DIAGNOSTIC (WRVU 3.26) 07/27/2024 8:00 AM EST TH Visit (TeleHealth) Gastroenterology at [place] [phone] Unruly Ramirez MD [facility] [place] [address] 08/03/2024 3:00 PM EST Office Visit Neurology at [address] [phone] Melvin Ramírez MD [facility] [place] [address] 08/25/2024 1:45 PM EDT [place] [address] Keven Church MD [facility] [place] [address] Scheduled Procedures Name Priority Associated Diagnoses Date/Ti me COLONOSCOPY, DIAGNOSTIC (WRV U 3.26) Hematochezia 06/30/2024 9:45 AM EST Scheduled Referrals Name Type Priority Associated Diagnoses Orde r Schedule Referral to Physical Therapy Outpatient Referral Routine Chronic pain in right shoulder Ordered: 12/23/2021 documented as of this encounter Visit Diagnoses Diagnosis Chronic pain in right shoulder- Primary Pain in joint, shoulder region Hematochezia Blood in stool documented in this encounter Care Teams Motor Builder Winder Relationship Specialty Start Date End Date Geraldo Gracia DNP [address] [place] [address] PCP - General Family Medicine 07/17/21 09/30/22 documented as of this encounter
--- OUTSIDE RECORDS SUMMARY | 2024-06-23 18:20 | XMS_ITS | Encounter Summary ---
Author Organization [facility] Address [facility] [place] [address] Care Team Providers Care Windows Application Packager Name Role Phone Geraldo Gracia DNP Primary Care Provider Encounter Details Date Type Department Care Team (Late st Contact Info) Description 06/15/2022 [place] [phone] Destiney Blanco, DO CREST (calcinosis, Raynaud's phenomenon, [...] 9:45 AM EST Hospital En[place] [phone] Flor Velasco MD [facility] [place] [address] 06/30/2024 9:45 AM EST - 06/30/2024 10:45 AM EST [place] [phone] Flor Velasco MD [facility] [place] [address] COLONOSCOPY, DIAGNOSTIC (WRVU 3.26) 07/27/2024 8:00 AM EST TH Visit (TeleHealth) [place] [phone] Unruly Ramirez MD [facility] [place] [address] 08/03/2024 3:00 PM EST Office Visit Neurology at [address] [phone] Melvin Ramírez MD [facility] [place] [address] 08/25/2024 1:45 PM EDT Office [place] [phone] Keven Church MD [facility] [place] [address] Scheduled Procedures Name Priority Associated Diagnoses Date/Ti me COLONOSCOPY, DIAGNOSTIC (WRV U 3.26) Hematochezia 06/30/2024 9:45 AM EST documented as of this encounter Visit Diagnoses Diagnosis CREST (calcinosis, Raynaud's phenomenon, esophageal dysfunction, sclerodactyly, telangiectasia) Systemic sclerosis Hematochezia Blood in stool documented in this encounter Care Teams Windows Application Packager Relationship Specialty Start Date End Date eGraldo Gracia DNP [address] [place] [address] PCP - General Family Medicine 07/17/21 09/30/22 documented as of this encounter
--- OUTSIDE RECORDS SUMMARY | 2024-06-23 18:20 | XMS_ITS | Encounter Summary ---
Author Organization [facility] [place] [address] Care Team Providers Care Stencil Cutter Machine Name Role Phone Geraldo Gracia [facility] Primary Care Provider Encounter Details Date Type Department Care Team (Latest Contact Info) Description 10/01/2022 Travel Social History Tobacco Use Types Packs/Day [...] 9:45 AM EST Hospital Encounter [place] [address] Flor Velasco MD [facility] [address] 06/30/2024 9:45 AM EST - 06/30/2024 10:45 AM EST [place] [address] Flor Velasco MD [facility] [place] [address] COLONOSCOPY, DIAGNOSTIC (WRVU 3.26) 07/27/2024 8:00 AM EST TH Visit (TeleHealth) Gastroenterology at [place] [phone] Unruly Ramirez MD [facility] [place] [address] 08/03/2024 3:00 PM EST Office Visit Neurology at [address] [phone] Melvin Ramírez MD [facility] [place] [address] 08/25/2024 1:45 PM EDT Office [place] [address] Keven Church MD [facility] [place] [address] Scheduled Procedures Name Priority Associated Diagnoses Date/Ti me COLONOSCOPY, DIAGNOSTIC (WRV U 3.26) Hematochezia 06/30/2024 9:45 AM EST documented as of this encounter Visit Diagnoses Not on filedocumented in this encounter Care Teams Stencil Cutter Machine Relationship Specialty Start Date End Date Geraldo Gracia DNP [address] [place] [address] PCP - General Family Medicine 10/01/22 documented as of this encounter
--- OUTSIDE RECORDS SUMMARY | 2024-06-23 18:20 | XMS_ITS | Encounter Summary ---
[place] [address] Care Team Providers Care Cover Maker Name Role Phone Geraldo Gracia [facility] Primary Care Provider Encounter Details Date Type Department Care Team (Latest Contact Info) Description 12/18/2021 10:30 AM EDT TH Visit (TeleHealth) [place] [address] Herlinda Hillman MD [facility] [place] [address] Elevated liver enzymes; Autoimmune hepatitis; Constipation, unspecified constipation type Social History Tobacco Use Types Packs/Day Years Used Date Smoking Tobacco: Former Smokeless Tobacco: Never Comments:In high school Alcohol Use Standard Drinks/Week Comments Yes 0 (1 standard drink = 0.6 oz pur e alcohol) once a month Sex and Gender Information Value Date Recorded Sex Assigned at Female 08/20/2020 6:21 PM EDT Gender Identity Female 08/20/2020 6:21 PM EDT Sexual Orientation Straight 08/20/2020 6: 21 PM EDT documented as of this encounter Progress Notes * Herlinda Hillman MD - 12/18/2021 10:30 AM EDT [facility] Division of Gastroenterology and Hepatology [...] History: - Last seen in GI clinic 05/08/21 at which time started on PPI for concern for functional dyspepsia,RUQ to rule out biliary colic, increased amitriptyline 25 mg nightly - RUQ US done with small gallstones - Continuing to follow with rheumatology, 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 galcanezumab-gnlm (Emgality Pen) 120 mg/mL Pen Injector Inject 1 mL subcutaneously every 28 days. 3 mL 0 ??? levothyroxine (Synthroid) 50 mcg Tablet Take 1 tablet by mouth daily. 60 tablet 0 ??? hydrOXYchloroQUINE (Plaquenil) 200 mg Tablet Take 1 tablet by mouth daily. Indications: systemic lupus erythematosus, an autoimmune disease 60 tablet 12 ??? NIFEdipine CC (Adalat CC) 30 mg Tablet Sustained Release Take 1 tablet by mouth daily. 30 tablet 0 ??? docusate sodium (Colace) 50 mg Capsule Take 50 mg by mouth. ??? ipratropium (ATROVENT) 21 mcg (0.03 %) [place], Non-Aerosol INSTILL 1 SPRAY INTO BOTH NOSTRILS THREE TIMES A DAY ??? melatonin 3 mg Tablet Take 3 mg by mouth nightly. ??? naproxen sodium (ANAPROX) 550 mg Tablet One tablet twice a day as needed for mild to moderate headache. Limit to twice a week. 30 tablet 5 ??? DULoxetine DR (Cymbalta) 30 mg Capsule, Delayed Release(E.C.) Take 30 mg by mouth daily. ??? traZODone (Desyrel) 50 mg Tablet Take 25 mg by mouth nightly. ??? magnesium 250 mg Tablet Take 500 mg by mouth nightly. ??? calcium citrate (Calcitrate) 200 mg (950 mg) Tablet Take 1 tablet by mouth daily. ??? multivitamin (THERAGRAN) Tablet Take 1 tablet [...] CIS - HANDS GET NUMB Physical Examination: Deferred due to the nature of the visit Labs: Reviewed in EDH/Scan Docs Lab Results Component Value Date WBC 5.0 09/18/2021 HGB 12.8 09/18/2021 HCT 37.0 09/18/2021 MCV 91.6 09/18/2021 PLATELET 234 09/18/2021 Chemistry Component Value Date/Time NA 139 09/18/2021 1500 K 4.0 09/18/2021 1500 CL 102 09/18/2021 1500 CO2 26 09/18/2021 1500 BUN 12 09/18/2021 1500 CREATININE 0.66 (L) 09/18/2021 1500 Component Value Date/Time CALCIUM 9.6 09/18/2021 1500 ALKPHOS 39 09/18/2021 1500 AST 21 09/18/2021 1500 ALT 14 09/18/2021 1500 BILITOT <0.2 (L) 09/18/2021 1500 Past Endoscopy and relevant studies: EGD 08/26/20: [...] remain normal and we can continue with d3aabmc monitoring. She is due for repeat labs at this time. 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 While most patients with CREST will have esophageal symptoms included GERD, Karolina does not seem to have any esophageal symptoms at this time. Her epigastric pain and bloating can possibly be related to roger-dysmotility in the setting of CREST however she did have a normal gastric emptying study. Constipation likely related to slow transit in the setting of CREST and will begin with Linzess given intolerance of Miralax in the past. RECOMMENDATIONS: - Repeat LFTs today - Initiate Linzess 72 mcg daily - Continue PPI Follow up 3 months This case was discussed with Dr. Attila Hillman MD Fellow in Gastroenterology [place] [address] P: [phone] F: [phone] CC Geraldo Gracia, [employer] [address] [place] [address] * Karly Aiken MD - 12/18/2021 10:30 AM EDT .[email or web address] * Karly Aiken MD - 12/18/2021 10:30 AM EDT ATTENDING ATTESTATION: I have discussed the patient with the GI fellow, Dr. Hillman and I agree with her findings, assessment, and plan as written. Karly Aiken MD Gastroenterology attending Pager [phone] documented in this encounter Plan of Treatment Upcoming Encounters Date Type Department Care Team (Latest Contact Info) Description 06/30/2024 9:45 AM EST Hospital En[place] [phone] Flor Velasco MD [facility] [place] [address] 06/30/2024 9:45 AM EST - 06/30/2024 10:45 AM EST [place] [phone] Flor Velasco MD [facility] [place] [address] COLONOSCOPY, DIAGNOSTIC (WRVU 3.26) 07/27/2024 8:00 AM EST TH Visit (TeleHealth) [place] [address] Unruly Ramirez MD [facility] [place] [address] 08/03/2024 3:00 PM EST Office Visit Neurology at [address] [phone] Melvin Ramírez MD [facility] [place] [address] 08/25/2024 1:45 PM EDT Office [place] [address] Keven Church MD [facility] [place] [address] Scheduled Procedures Name Priority Associated Diagnoses Date/Ti me COLONOSCOPY, DIAGNOSTIC (WRV U 3.26) Hematochezia 06/30/2024 9:45 AM EST documented as of this encounter Results * (ABNORMAL) Hepatic Function Panel (12/23/2021 12:15 PM EDT) Protein, Total 7.1 6.1 - 8.0 g/dL [facility] Albumin 4.5 3.2 - 5.2 g/dL [facility] Aspartate Aminotransferase 17 0 - 30 unit/L [facility] Alanine Aminotransferase 15 0 - 30 unit/L [facility] Alkaline Phosphatase 43 35 - 105 unit/L [facility] Bilirubin, Total <0.2(L) 0.2 - 1.3 mg/dL [facility] Bilirubin, Direct 0.1 0.0 - 0.3 mg/dL [facility] Blood 12/23/2021 12:1 5 PM EDT 12/23/2021 12:29 PM EDT Narrative Resulting Agency Comment Spec In Lab Karly Aiken MD CHEMISTRY ORDERAB LES [facility] [place] [address] documented in this encounter Visit Diagnoses Diagnosis Elevated liver enzymes Nonspecific elevation of levels of transaminase or lactic acid dehydrogenase (LDH) Autoimmune hepatitis Constipation, unspecified constipation type Hematochezia Blood in stool documented in this encounter Care Teams Cover Maker Relationship Specialty Start Date End Date Geraldo Gracia DNP [address] [place] [address] PCP - General Family Medicine 07/17/21 09/30/22 documented as of this encounter
--- OUTSIDE RECORDS SUMMARY | 2024-06-23 18:20 | XMS_ITS | Encounter Summary ---
[place] [address] Care Team Providers Care Wood Strip Block Floor Installer Name Role Phone Geraldo Gracia DNP Primary Care Provider Encounter Details Date Type Department Care Team (Late st Contact Info) Description 10/01/2022 [place] [phone] Kaycee Gaxiola Social History Tobacco Use Types Packs/Day Years [...] encounter Miscellaneous Notes * Telephone Encounter - Kaycee Gaxiola - 10/01/2022 11:59 AM EDT Needs PA for Echo Send to [facility] documented in this encounter Plan of Treatment Upcoming Encounters Date Type Department Care Team (Latest Contact Info) Description 06/30/2024 9:45 AM EST Hospital En[place] [address] Flor Velasco MD [facility] [place] [address] 06/30/2024 9:45 AM EST - 06/30/2024 10:45 AM EST Surgery Gastroenterology at [place] [phone] Flor Velasco MD [facility] [place] [address] COLONOSCOPY, DIAGNOSTIC (WRVU 3.26) 07/27/2024 8:00 AM EST TH Visit (TeleHealth) Gastroenterology at [place] [phone] Unruly Ramirez MD [facility] [place] [address] 08/03/2024 3:00 PM EST Office Visit Neurology at [address] [phone] Melvin Ramírez MD [facility] [place] [address] 08/25/2024 1:45 PM EDT Office [place] [phone] Keven Church MD [facility] [place] [address] Scheduled Procedures Name Priority Associated Diagnoses Date/Ti me COLONOSCOPY, DIAGNOSTIC (WRV U 3.26) Hematochezia 06/30/2024 9:45 AM EST documented as of this encounter Visit Diagnoses Not on filedocumented in this encounter Care Teams Wood Strip Block Floor Installer Relationship Specialty Start Date End Date Geraldo Gracia, NANNETTE [address] [place] [address] PCP - General Family Medicine 10/01/22 documented as of this encounter
--- OUTSIDE RECORDS SUMMARY | 2024-06-23 18:20 | XMS_ITS | Encounter Summary ---
[place] [address] Care Team Providers Care Utilities Ground Worker Name Role Phone Geraldo Gracia DNP Primary Care Provider [phone]- [phone] Reason for Visit * Reason Comments Medication Refill Encounter Details Date Type Department Care Team (Late st Contact Info) Description 02/04/2022 Refill Neurology at [address] [phone] Elizabeth Banerjee APRN [facility] [place] [address] Social History Tobacco Use Types Packs/Day Years [...] 9:45 AM EST Hospital Encounter [place] [address] Flor Velasco MD [facility] [place] [address] 06/30/2024 9:45 AM EST - 06/30/2024 10:45 AM EST Surgery Gastroenterology at [place] [phone] Flor Velasco MD [facility] [place] [address] COLONOSCOPY, DIAGNOSTIC (WRVU 3.26) 07/27/2024 8:00 AM EST TH Visit (TeleHealth) [place] [phone] Unruly Ramirez MD [facility] DR GASTROENTER[place] [address] 08/03/2024 3:00 PM EST Office Visit Neurology at [address] [phone] Melvin Ramírez MD [facility] [place] [address] 08/25/2024 1:45 PM EDT Office [place] [address] Keven Church MD [facility] [place] [address] Scheduled Procedures Name Priority Associated Diagnoses Date/Ti me COLONOSCOPY, DIAGNOSTIC (WRV U 3.26) Hematochezia 06/30/2024 9:45 AM EST documented as of this encounter Visit Diagnoses Not on filedocumented in this encounter Care Teams Utilities Ground Worker Relationship Specialty Start Date End Date Geraldo Gracia DNP [address] [place] [address] PCP - General Family Medicine 07/17/21 09/30/22 documented as of this encounter
--- OUTSIDE RECORDS SUMMARY | 2024-06-23 18:20 | XMS_ITS | Encounter Summary ---
Author Organization [facility] Address [facility] [place] [address] Care Team Providers Care Residential Substance Abuse Counselor Name Role Phone Geraldo Gracia [facility] Primary Care Provider Encounter Details Date Type Department Care Team (Late st Contact Info) Description 06/23/2022 Orders [place] [phone] Brigette Calderon MD CREST syndrome; On Cellcept therapy Social History Tobacco Use Types Packs/Day Years [...] 9:45 AM EST Hospital Encounter [place] [phone] Flor Velasco MD [facility] [place] [address] 06/30/2024 9:45 AM EST - 06/30/2024 10:45 AM EST Surgery Gastroenterology at [place] [phone] Flor Velasco MD [facility] [place] [address] COLONOSCOPY, DIAGNOSTIC (WRVU 3.26) 07/27/2024 8:00 AM EST TH Visit (TeleHealth) Gastroenterology at [place] [phone] Unruly Ramirez MD [facility] [place] [address] 08/03/2024 3:00 PM EST Office Visit Neurology at [address] [phone] Melvin Ramírez MD [facility] [place] [address] 08/25/2024 1:45 PM EDT Office Visit Rheumatology at [place] [phone] Keven Church MD [facility] [place] [address] Scheduled Procedures Name Priority Associated Diagnoses Date/Ti me COLONOSCOPY, DIAGNOSTIC (WRV U 3.26) Hematochezia 06/30/2024 9:45 AM EST documented as of this encounter Visit Diagnoses Diagnosis CREST syndrome Systemic sclerosis On Cellcept therapy Hematochezia Blood in stool documented in this encounter Care Teams Residential Substance Abuse Counselor Relationship Specialty Start Date End Date Geraldo Gracia DNP [address] [place] [address] PCP - General Family Medicine 07/17/21 09/30/22 documented as of this encounter
--- OUTSIDE RECORDS SUMMARY | 2024-06-23 18:20 | XMS_ITS | Encounter Summary ---
[place] [address] Care Team Providers Care Crossbar Frame Wirer Name Role Phone Geraldo Gracia DNP Primary Care Provider [phone]- [phone] Reason for Visit * Reason Comments Medication Refill Encounter Details Date Type Department Care Team (Late st Contact Info) Description 09/09/2022 Refill Neurology at [address] [phone] Elizabeth Banerjee APRN [facility] [place] [address] Social History Tobacco Use Types Packs/Day Years [...] 9:45 AM EST Hospital En[place] [address] Flor Velasco MD [facility] [place] [address] 06/30/2024 9:45 AM EST - 06/30/2024 10:45 AM EST Surgery Gastroenterology at [place] [phone] Flor Velasco MD [facility] [address] COLONOSCOPY, DIAGNOSTIC (WRVU 3.26) 07/27/2024 8:00 AM EST TH Visit (TeleHealth) [place] [phone] Unruly Ramirez MD [facility] [place] [address] 08/03/2024 3:00 PM EST Office Visit Neurology at [address] [phone] Melvin Ramírez MD [facility] [address] 08/25/2024 1:45 PM EDT Office [place] [address] Keven Church MD [facility] [place] [address] Scheduled Procedures Name Priority Associated Diagnoses Date/Ti me COLONOSCOPY, DIAGNOSTIC (WRV U 3.26) Hematochezia 06/30/2024 9:45 AM EST documented as of this encounter Visit Diagnoses Not on filedocumented in this encounter Care Teams Crossbar Frame Wirer Relationship Specialty Start Date End Date Geraldo Gracia DNP [address] [place] [address] PCP - General Family Medicine 07/17/21 09/30/22 documented as of this encounter
--- OUTSIDE RECORDS SUMMARY | 2024-06-23 18:20 | XMS_ITS | Encounter Summary ---
[place] [address] Care Team Providers Care Information Technology Manager Name Role Phone Geraldo Gracia [facility] Primary Care Provider Reason for Visit * Diagnostic Test (Routine) - Closed Specialty Diagnoses / Procedures Referred By Mikaela costa Referred To Contact Radiology Diagnoses Chronic abdominal pain Procedures NM Gastric Emptying Scan Herlinda Hillman MD [facility] [place] [address] [place] [address] Referral ID Status Reason Start Date Expiration Date V isits Requested Visits Authorized [id number] Closed Specialty Service Requested 11/26/2021 05/28/2023 1 1 Encounter Details Date Type Department Care Team (Latest Contact Info) Description 12/08/2021 8:38 AM EDT Hospital Encounter [place] [address] Gilbert La MD [facility] [place] [address] Discharge Disposition: Home Social History Tobacco Use [...] 12.5 mg by mouth nightly. 0 10/17/2015 galcanezumab-gnlm (Emgality Pen) 120 mg/mL Pen Injector Inject 1 mL subcutaneously every 28 days. 3 mL 11/13/2021 02/04/2022 hydrOXYchloroQUINE (Plaquenil) 200 mg TabletIndications:sys temic lupus erythematosus Take 1 tablet by mouth daily. Indications: systemic lupus erythematosus, an autoimmune disease 60 tablet 12 09/25/2021 06/08/2022 NIFEdipine CC (Adalat CC) 30 mg Tablet Sustained Release Take 1 tablet by mouth daily. 30 tablet 09/18/2021 06/08/2022 docusate sodium (Colace) 50 mg Capsule Take 50 mg by mouth as needed. 02/10/2024 ipratropium (ATROVENT) 21 mcg (0.03 %) [place], Non-Aerosol INSTILL 1 SPRAY INTO BOTH NOSTRILS THREE TIMES A DAY 05/28/2021 06/08/2022 naproxen sodium (ANAPROX) 550 mg TabletIndications:Fer jass with aura and without status migrainosus, not intractable One tablet twice a day as needed for mild to moderate headache. Limit to twice a week. 30 tablet 5 09/20/2020 10/01/[address] (Cymbalta) 30 mg Capsule, Delayed Release(E.C.) Take 30 mg by mouth daily. 12/24/2021 calcium citrate (Calcitrate) 200 mg (950 mg) Tablet Take 1 tablet by mouth daily. 06/08/2022 multivitamin (THERAGRAN) Tablet Take 1 tablet by mouth daily. 11/15/2023 documented as of this encounter Plan of Treatment Upcoming Encounters Date Type Department Care Team (Latest Contact Info) Description 06/30/2024 9:45 AM EST Hospital Encounter [place] [phone] Flor Velasco MD [facility] [place] [address] 06/30/2024 9:45 AM EST - 06/30/2024 10:45 AM EST Surgery Gastroenterology at [place] [phone] Flor Velasco MD [facility] [place] [address] COLONOSCOPY, DIAGNOSTIC (WRVU 3.26) 07/27/2024 8:00 AM EST TH Visit (TeleHealth) [place] [address] Unruly Ramirez MD [facility] [place] [address] 08/03/2024 3:00 PM EST Office Visit Neurology at [address] [phone] Melvin Ramírez MD [facility] [place] [address] 08/25/2024 1:45 PM EDT Office [place] [address] Keven Church MD [facility] [place] [address] Scheduled Procedures Name Priority Associated Diagnoses Date/Ti me COLONOSCOPY, DIAGNOSTIC (WRV U 3.26) Hematochezia 06/30/2024 9:45 AM EST documented as of this encounter Procedures Procedure Name Priority Date/Time Associated Diagnosis Comments NM GASTRIC EMPTYING SCAN Routine 12/08/2021 12:22 PM EDT Chronic abdominal pain documented in this encounter Results * NM Gastric Emptying Scan (12/08/2021 12:22 PM EDT) Anatomical Region Laterality Modality Nuclear Medicine Impressions 12/08/2021 4:51 PM EDT Normal gastric emptying. Thank you for letting us participate in the care of this patient. ??If you are a health care provider and have any questions regarding this report, please contact the number below. ??For patients who have questions please contact the health rn primary care that requested your imaging first. ? Electronically signed by: Jorgito Michel MD, [facility] ([phone]), at 12/08/2021 4:51 PM Narrative 12/08/2021 4:51 PM EDT EXAMINATION: NM GASTRIC EMPTYING SCAN CLINICAL HISTORY: Bloating and new dx CREST, r/o gastroparesis TECHNIQUE: A standard meal was labeled with 0.5 mCi of Technetium-99m sulfur colloid and ingested. Images of the stomach were obtained in the anterior and posterior projections immediately thereafter and 1, 2 and 3 hours later. COMPARISON: None FINDINGS: Activity fills the stomach on the initial images obtained immediately after ingesting the meal. Small bowel is visible at one hour. There is minimal activity present in the stomach at 3 hours. Quantitative analysis: 2 hours: 31 percent remains in the stomach (normal less than 60%) 3 hours: 3 percent remains in the stomach (normal less than 10% at four hours) Procedure Note Jorgito Michel MD - 12/08/2021 EXAMINATION: NM GASTRIC EMPTYING SCAN CLINICAL HISTORY: Bloating and new dx CREST, r/o gastroparesis TECHNIQUE: A standard meal was labeled with 0.5 mCi of Technetium-99msulfur colloid and ingested. Images of the stomach were obtained in the anteriorand posterior projections immediately thereafter and 1, 2 and 3 hours later. COMPARISON: None FINDINGS: Activity fills the stomach on the initial images obtained immediatelyafter ingesting the meal. Small bowel is visible at one hour. There is minimal activity present in the stomach at 3 hours. Quantitative analysis: 2 hours: 31 percent remains in the stomach (normal less than 60%) 3 hours: 3 percent remains in the stomach (normal less than 10% at fourhours) IMPRESSION Normal gastric emptying. Thank you for letting us participate in the care of this patient. If youare a health care provider and have any questions regarding this report,please contact the number below. For patients who have questions please contactthe health rn primary care that requested your imaging first. Electronically signed by: Jorgito Michel MD, [facility]([phone]), at 12/08/2021 4:51 PM Gilbert La MD [facility] NM ORDERABLES documented in this encounter Visit Diagnoses Not on filedocumented in this encounter Administered Medications Inactive Administered Medications - up to 3 most recent administrations Medication Order MAR Action Action Date Dose Rate Site technetium (Tc-99m) sulfur colloid injection 0-18 mCi 0-18 mCi, Oral, ONCE PRN, 1 dose, Starting on Wed12/08/21 at 1001, Until Wed12/08/21 at 0910, Per Protocol, Radiology Contrast, Routine Given 12/08/2021 9:10 AM EDT 0.5 mCi documented in this encounter Care Teams Information Technology Manager Relationship Specialty Start Date End Date Geraldo Gracia DNP [address] [place] [address] PCP - General Family Medicine 07/17/21 09/30/22 documented as of this encounter
--- OUTSIDE RECORDS SUMMARY | 2024-06-23 18:20 | XMS_ITS | Encounter Summary ---
[place] [address] Care Team Providers Care Real Estate Account Executive Name Role Phone Geraldo Gracia [facility] Primary Care Provider [phone] Reason for Visit * Reason Comments Follow-up Encounter Details Date Type Department Care Team (Late st Contact Info) Description 10/01/2022 9:30 AM EDT Office [place] [phone] Destiney Blanco, CREST syndrome; Medication monitoring encounter; Raynaud's phenomenon [...] Sign Reading Time Taken Comments Blood Pressure 112/65 10/01/2022 9:27 AM EDT Pulse 98 10/01/2022 9:27 AM EDT Temperature 36.4 ??C (97.6 ??F) 10/01/2022 9:27 AM ED T Respiratory Rate 18 10/01/2022 9:27 AM EDT Oxygen Saturation 100% 10/01/2022 9:27 AM EDT Inhaled Oxygen Concentration - - Weight 43.5 kg (96 lb) 10/01/2022 9:27 AM EDT Height 157.5 cm (5' 2) 10/01/2022 9:27 AM EDT Body Mass Index 17.56 10/01/2022 9:27 AM EDT documented in this encounter Progress Notes * Destiney Blanco, DO - 10/01/2022 9:30 AM EDT Rheumatology Outpatient Follow Up Note PCP: AVA Justin is a 47 y.o. 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 #Raynaud's, normal nailbed capillaries - [...] given cream for improvement - ARNULFO at [facility] 1:320 speckled and cytoplasmic, COLBY negative,??dsDNA negative,??anti-mitochondrial negative, +anti-smooth muscle 1:160, C3 mildly low 86-88, normal C4, TPO 982, TTG negative, APS ab negative - 09/2020 episode of Raynaud's, initiated HCQ - 12/2020 worsening photosensitivity with fatigue, arthralgias, rash from sun - 07/2021 nail caps few dilated loops right hand -08/2021: continued arthralgias, ARNULFO 1:320, centromere pattern, COLBY panel negative, C3 mildly low at83..?Anti-centromere antibody is mildly elevated at 2.5.??Trial of Nifedipine 30mg HS?? - Meets criteria for SLE with + ARNULFO, +??history of cutanious manifestations, +low complement, anti-centromere Positive 2.5 - freatures of CREST??positive centromere antibody, 2.5-raynaud's, Gi dysmotility??.- consistent with CREST/SLE overlap. - TTE: 11/03/2021:??Normal echo, Normal RV systolic pressure?? - CT chest:??11/03/21: Mild apical scaring?? - PFTs:??Normal PFTs. - Currently on Plaquenil 200mg daily - 06/22: increasing Joint pain/stiffness, started Cellcept 1000 mg BID (no MTX due to fibrosis) Vaccine: 1 covid vaccine, declines other vaccines. Eye exam 08/2022: normal Interval History: Patient noted improvement in joint pain and stiffness on CellCept, she did have side effect of diarrhea and tried decreasing back down to 500 twice a day but had recurrence of joint pain and stiffness and try to increase the dose back to 1000 mg twice a day. She did note that over the last week herdiarrhea has resolved now having more constipation. No abdominal pain nausea. -Rare symptoms of GERD, has appointment with GI next month -Raynaud's is well controlled off any medication, has not had any problems now that the weather is warming up -She did have a lot of stress this late winter and early spring with the passing of her brother -Shoulder pain improved after steroid injection at last visit -No fevers, chills recurrent infections -No dyspnea on exertion, shortness of breath, daily cough -No skin rash ROS (positives in bold): Gen: no fevers, no chills, no night sweats Pulm: no SOB CV: no CP Abd: no abd pain, no nausea, no vomiting, + diarrhea MSK: see HPI Meds and Allergies: Reviewed in eDH Physical exam: BP 112/65 Pulse 98 Temp 36.4 ??C (97.6 ??F) (Temporal) Resp 18 Ht 157.5 cm (5' 2) Wt 43.5 kg (96 lb) SpO2 100% BMI 17.56 kg/m?? Gen: well appearing, alert and oriented x 3, nad HEENT: NCAT, EOMI, moist mucous membranes, no oral ulcers, normal sclerae Lymph: no cervical LAD Heart: regular rate, no murmurs, rubs or gallops Lungs: clear to auscultation b/l Abd: soft, +bs, NT/ND Skin: warm and dry, no rheumatologic rashes, few dilated capillaries under capillaroscopy, some trauma to nailbeds due to picking. Nails: no nail pitting Joints: Shoulders: FROM, non-tender to palpation Elbows:FROM Wrists: FROM, no swelling, non-tender Hands: No synovitis, no MCP compression tenderness, full claw and fist Hips: FROM, no tenderness Knees: FROM, no effusion, no tenderness Ankles: FROM, non-tender, no effusion Feet: no MTP compression tenderness, no swelling in MTP/DIP/PIPs Labs/Studies: Reviewed. Assessment/Plan: Karolina Olivas is a 46 y.o. 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 Patient initially presented with symptoms in 2020 with Raynaud's, arthralgias,??fatigue,??photosensitive rash. ??Initially she had a positive ARNULFO 1:320,??speckled pattern with negative COLBY panel suggestive of SLE picture.?She was started on Plaquenil without much improvement in her arthralgias. 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 ??During subsequent evaluations, repeat ARNULFO panel showed centromere pattern and an anticentromere antibody was checked which is elevated,??sugges ting patient may be developing CREST syndrome like picture-with Raynaud's, GI dysmotility. ??No evidence of pulmonary hypertension on echocardiogram 2021, ILD on chest CT 11/19. 05/2022 noted increasing arthralgias in the hands knees with associated morning stiffness. You have a history of liver fibrosis she is started on CellCept and has increased to 1000 mg twice a day. She notes improvement in joint pain and arthralgias. She does note diarrhea which has improved. We will continue on CellCept 1000 mg twice a day, if there is persistent GI symptoms patient will trial decrease dose of the 1000 mg in a.m. 500 mg in p.m. We will check monitoring labs today CBC CMP. Given SLE picture in the pastwe will evaluate complements, urine protein creatinine ratio. Given history of crest at risk for development of pulmonary hypertension and ILD will monitor with PFTs echo yearly. - Advised 2nd covid vaccine, flu shot, pt immunosuppressed, increase risk of infection/. Pt declined Plan -Continue CellCept to 1000 mg twice daily -Continue Plaquenil 200 mg daily -Continue follow-up with GI -CBC CMP C3-C4 urine protein creatinine ratio today -Ordered echocardiogram -Ordered PFTs - eye exam up to date. -We will follow-up in 3 months Patient was discussed with Dr. Reji Blanco DO Rheumatology Fellow Pager: [phone] * Sandhya Mendoza DO - 10/01/2022 9:30 AM EDT ATTENDING ADDENDUM The patient's history was reviewed, and I interviewed and examined the patient with Dr. Blanco. I agree with her summary, findings, and plan. documented in this encounter Plan of Treatment Upcoming Encounters Date Type Department Care Team (Latest Contact Info) Description 06/30/2024 9:45 AM EST Hospital Encounter [place] [phone] Flor Velasco MD [facility] [place] [address] 06/30/2024 9:45 AM EST - 06/30/2024 10:45 AM EST Surgery [place] [phone] Flor Velasco MD [facility] DR GASTROENTER[place] [address] COLONOSCOPY, DIAGNOSTIC (WRVU 3.26) 07/27/2024 8:00 AM EST TH Visit (TeleHealth) [place] [address] Unruly Ramirez MD [facility] DR GASTROENTEROLOGY [place] [address] 08/03/2024 3:00 PM EST Office Visit Neurology at [address] [phone] Melvin Ramírez MD [facility] [address] [address] 08/25/2024 1:45 PM EDT Office [place] [address] Keven Church MD [facility] RHEUMATOLOGY [place] [address] Scheduled Procedures Name Priority Associated Diagnoses Date/Ti me COLONOSCOPY, DIAGNOSTIC (WRV U 3.26) Hematochezia 06/30/2024 9:45 AM EST documented as of this encounter Procedures Procedure Name Priority Date/Time Associated Diagnosis Comments PROTEIN/CREATININE RATIO, URINE Routine 10/01/2022 10:55 AM EDT CREST syndrome Medication monitoring encounter HEMOGRAM Routine 10/01/2022 10:36 AM EDT CREST syndrome Medication monitoring encounter DIFFERENTIAL, AUTOMATED Routine 10/01/2022 10:36 AM EDT CREST syndrome Medication monitoring encounter HC CBC,PLT & AUTO DIFF Routine 10:36 AM EDT CREST syndrome Medication monitoring encounter C3 COMPLEMENT Routine 10/01/2022 10:36 AM EDT CREST syndrome Medication monitoring encounter C4 COMPLEMENT Routine 10/01/2022 10:36 AM EDT CREST syndrome Medication monitoring encounter COMPREHENSIVE METABOLIC PANEL Routine 10/01/2022 10:36 AM EDT CREST syndrome Medication monitoring encounter documented in this encounter Results * (ABNORMAL) Protein/Creatinine Ratio, urine (10/01/2022 10:55 AM EDT) Creatinine, Urine 182 mg/dL [facility] Protein, Urine 13(H) 0 - 12 mg/dL [facility] Protein / Creatinine Ratio, Urine <0.1 ratio [facility] Urine 10/01/2022 10:5 5 AM EDT 10/01/2022 11:19 AM EDT Narrative Resulting Agency Comment Spec In Lab Sandhya Mendoza DO URINE ORDERABLES Performing Organization Address City/State/[facility] Co de Phone Number [facility] [place] [address] * (ABNORMAL) Differential, Automated (10/01/2022 10:36 AM EDT) Neutrophil % 73.9 % [facility] Neutrophil Absolute 3.80 1.70 - 6.10 x10(3)/mc L [facility] Lymph % 13.5 % [facility] Lymphocytes Abs 0.7(L) 0.9 - 3.2 x10(3)/mc L [facility] Monocyte % 9.4 % [facility] Monocyte Abs 0.5 0.3 - 0.9 x10(3)/mc L [facility] Eos % 1.6 % [facility] Eosinophils Abs 0.1 0.0 - 0.4 x10(3)/mc L [facility] Basophil % 1.4 % [facility] Baso Absolute 0.1 0.0 - 0.1 x10(3)/mc L [facility] Immature Gran % 0.20 % [facility] Comment: Immature granulocytes(IG's)percentage and absolute count will include metamyelocytes, myelocytes, and promyelocytes. Blood smears from CBCs yielding IG's will be scanned manually for concordance. If this scan disagrees with the automated IG or if promyelocytes are noted, a manual differential will be performed. Immature Gran Absolute 0.01 0.00 - 0.04 x10(3)/mc L [facility] Blood 10/01/2022 10:3 6 AM EDT 10/01/2022 10:54 AM EDT Narrative Resulting Agency Comment Spec In Lab Destiney Blanco DO HEMATOLOGY ORDERABLE S [facility] [place] [address] * (ABNORMAL) Hemogram (10/01/2022 10:36 AM EDT) White Blood Cell 5.1 4.0 - 9.5 x10(3)/ L [facility] Red Blood Cell 3.99(L) 4.00 - 5.21 x10(6)/[facility] Hemoglobin 12.5 11.7 - 15.5 g/dL [facility] Hematocrit 37.8 35.7 - 45.8 % [facility] Mean Cell Volume 94.7(H) 82.6 - 94.4 fL [facility] Mean Cell Hemoglobin 31.3 27.1 - 32.0 pg [facility] Mean Cell Hemoglobin Concentration 33.1 31.7 - 35.0 g/dL [facility] Platelet 203 145 - 357 x10(3)/[facility]AT[facility] RDW Standard Deviation 43.3 37.0 - 46.0 fL [facility] RDW coefficient of variation 12.4 11.5 - 14.1 % [facility] Mean Platelet Volume 10.8 7.6 - 12.9 fL [facility] NRBC% auto 0.0 % [facility] NRBC Absolute 0.000 0.000 - 0.000 x10(3)/ L [facility] Blood 10/01/2022 10:3 6 AM EDT 10/01/2022 10:54 AM EDT Narrative Resulting Agency Comment Spec In Lab Destiney Blanco DO HEMATOLOGY ORDERABLE S [facility] [place] [address] * (ABNORMAL) C4 Complement (10/01/2022 10:36 AM EDT) Complement C4 9(L) 10 - 40 mg/dL [facility] Blood 10/01/2022 10:3 6 AM EDT 10/01/2022 10:54 AM EDT Narrative Resulting Agency Comment Spec In Lab Sandhya Mendoza DO CHEMISTRY ORDERABL ES Performing Organization Address [facility] Co de Phone Number [facility] [place] [address] * (ABNORMAL) C3 Complement (10/01/2022 10:36 AM EDT) Complement C3 84(L) 90 - 180 mg/dL [facility] Blood 10/01/2022 10:3 6 AM EDT 10/01/2022 10:54 AM EDT Narrative Resulting Agency Comment Spec In Lab Sandhya Susy Stewartew DO CHEMISTRY ORDERABL ES Performing Organization Address [facility] Co de Phone Number [facility] [place] [address] * (ABNORMAL) Comprehensive metabolic panel (non-fasting) (10/01/2022 10:36 AM EDT) Glucose 74 65 - 199 mg/dL [facility] Comment:Diabetes: >=200 mg/d L plus symptoms Blood Urea Nitrogen 11 8 - 18 mg/dL [facility] Creatinine 0.69(L) 0.70 - 1.20 mg/dL [facility] Sodium 140 135 - 145 mmol/L [facility] Potassium 4.3 3.5 - 5.0 mmol/L [facility] Comment: Please note: ??Patients with WBC >100,000 may have falsely elevated Potassium levels. ??For accurate Potassium quantification in these patients send serum separator tube (gold top) for subsequent determinations. ??Contact the Clinical Chemistry Laboratory if there are any questions. Chloride 105 98 - 107 mmol/L [facility] Carbon Dioxide 29 22 - 31 mmol/L [facility] Anion Gap 6 5 - 15 mmol/L [facility] Calcium 8.9 8.5 - 10.5 mg/dL [facility] Protein, Total 6.8 6.1 - 8.0 g/dL [facility] Albumin 4.5 3.2 - 5.2 g/dL [facility] Aspartate Aminotransferase 17 0 - 30 unit/L [facility] Alanine Aminotransferase 11 0 - 30 unit/L [facility] Alkaline Phosphatase 38 35 - 105 unit/L [facility] Bilirubin, Total <0.2(L) 0.2 - 1.3 mg/dL [facility] Est Glomerular Filtration Rate 107 >=60 mL/min/1. 73 m?? [facility] Comment: This patient's estimated GFR [...] and symptoms in addition to eGFR. Blood 10/01/2022 10:3 6 AM EDT 10/01/2022 10:54 AM EDT Narrative Resulting Agency Comment Spec In Lab Sandhya Mendoza DO CHEMISTRY ORDERABL ES [facility] [place] [address] documented in this encounter Visit Diagnoses Diagnosis CREST syndrome Systemic sclerosis Medication monitoring encounter Encounter for therapeutic drug monitoring Raynaud's phenomenon without gangrene High risk medication use Encounter for long-term (current) use of other medications Hematochezia Blood in stool documented in this encounter Care Teams Real Estate Account Executive Relationship Specialty Start Date End Date Geraldo Gracia DNP [address] [address] PCP - General Family Medicine 10/01/22 documented as of this encounter
--- OUTSIDE RECORDS SUMMARY | 2024-06-23 18:20 | XMS_ITS | Encounter Summary ---
[place] [address] Care Team Providers Care Billboard Erector Name Role Phone Geraldo Gracia [facility] Primary Care Provider [phone] Reason for Visit * Diagnostic Test (Routine) - Closed Specialty Diagnoses / Procedures Referred By Mikaela costa Referred To Contact Radiology Diagnoses Chronic abdominal pain Procedures NM Gastric Emptying Scan Herlinda Hillman MD [facility] [place] [address] [place] [address] Referral ID Status Reason Start Date Expiration Date V isits Requested Visits Authorized [id number] Closed Specialty Service Requested 11/26/2021 05/28/2023 1 1 Encounter Details Date Type Department Care Team (Latest Contact Info) Description 12/08/2021 8:39 AM EDT - 12/08/2021 11:59 PM EDT Hospital Encounter [place] [address] Gilbert La MD [facility] [place] [address] Discharge Disposition: Home Social History [...] 02/10/2024 ipratropium (ATROVENT) 21 mcg (0.03 %) [place], Non-Aerosol INSTILL 1 SPRAY INTO BOTH NOSTRILS [...] 9:45 AM EST Hospital Encounter [place] [address] Flor Velasco MD [facility] [place] [address] 06/30/2024 9:45 AM EST - 06/30/2024 10:45 AM EST Surgery [place] [phone] Flor Velasco MD [facility] [place] [address] COLONOSCOPY, DIAGNOSTIC (WRVU 3.26) 07/27/2024 8:00 AM EST TH Visit (TeleHealth) [place] [address] Unruly Ramirez MD [facility] [place] [address] 08/03/2024 3:00 PM EST Office Visit Neurology at [address] [address] Melvin Ramírez MD [facility] [place] [address] 08/25/2024 1:45 PM EDT Office [place] [address] Keven Church MD [facility] [address] [phone] (work) Scheduled Procedures Name Priority Associated Diagnoses Date/Ti [...] who have questions please contact the health care management specialist that requested your imaging first. ? Electronically signed by: Jorgito Michel MD, [facility] ([phone]), at 12/08/2021 4:51 PM Narrative 12/08/2021 4:51 [...] patients who have questions please contactthe health care management specialist that requested your imaging first. Electronically signed by: Jorgito Michel MD, [facility]([phone]), at 12/08/2021 4:51 PM Gilbert La MD [facility] NM ORDERABLES documented in this encounter Visit Diagnoses Not on filedocumented in this encounter Care Teams Billboard Erector Relationship Specialty Start Date End Date Geraldo Gracia DNP Elizabeth [address]NA[address] [place] [address] PCP - General Family Medicine 07/17/21 09/30/22 documented as of this encounter
--- OUTSIDE RECORDS SUMMARY | 2024-06-23 18:20 | XMS_ITS | Encounter Summary ---
Author Organization [facility] Address [facility] [place] [address] Care Team Providers Care Prototype Deicer Assembler Name Role Phone Geraldo Gracia DNP Primary Care Provider Encounter Details Date Type Department Care Team (Late st Contact Info) Description 07/08/2022 Orders [place] [phone] Destiney Blanco, CREST syndrome; Medication monitoring encounter Social History [...] 9:45 AM EST Hospital Encounter [place] [phone] Flor Velasco MD [facility] DR GASTROENTEROLOGY [place], [place] [phone] 06/30/2024 9:45 AM EST - 06/30/2024 10:45 AM EST Surgery Gastroenterology at [place] [phone] Flor Velasco MD [facility] [place] [address] COLONOSCOPY, DIAGNOSTIC (WRVU 3.26) 07/27/2024 8:00 AM EST TH Visit (TeleHealth) Gastroenterology at [place] [phone] Unruly Ramirez MD [facility] DR GASTROENTEROLOGY DEPT [place], [place] [phone] 08/03/2024 3:00 PM EST Office Visit Neurology at [address] [phone] Melvin Ramírez MD [facility] [place] [address] 08/25/2024 1:45 PM EDT Office Visit Rheumatology at [place] [phone] Keven Church MD [facility] [place] [address] Scheduled Procedures Name Priority Associated Diagnoses Date/Ti me COLONOSCOPY, DIAGNOSTIC (WRV U 3.26) Hematochezia 06/30/2024 9:45 AM EST documented as of this encounter Visit Diagnoses Diagnosis CREST syndrome Systemic sclerosis Medication monitoring encounter Encounter for therapeutic drug monitoring Hematochezia Blood in stool documented in this encounter Care Teams Prototype Deicer Assembler Relationship Specialty Start Date End Date Geraldo Gracia DNP Elizabeth [address]NA[address] [place] [address] PCP - General Family Medicine 07/17/21 09/30/22 documented as of this encounter
--- OUTSIDE RECORDS SUMMARY | 2024-06-23 18:20 | XMS_ITS | Encounter Summary ---
[place] [address] Care Team Providers Care Flux Mixer Name Role Phone Geraldo Gracia [facility] Primary Care Provider Reason for Visit * Diagnostic Test (Routine) - Closed Specialty Diagnoses / Procedures Referred By Mikaela costa Referred To Contact Radiology Diagnoses Chronic abdominal pain Procedures NM Gastric Emptying Scan Herlinda Hillman MD [facility] [place] [address] [place] [address] Referral ID Status Reason Start Date Expiration Date V isits Requested Visits Authorized [id number] Closed Specialty Service Requested 11/26/2021 05/28/2023 1 1 Encounter Details Date Type Department Care Team (Latest Contact Info) Description 12/08/2021 8:38 AM EDT Hospital Encounter [place] [address] Gilbert La MD [facility] [place] [address] Discharge Disposition: Home Social History [...] 02/10/2024 ipratropium (ATROVENT) 21 mcg (0.03 %) [place], Non-Aerosol INSTILL 1 SPRAY INTO BOTH NOSTRILS [...] 9:45 AM EST Hospital Encounter [place] [phone] Flor Velasco MD [facility] [place] [address] 06/30/2024 9:45 AM EST - 06/30/2024 10:45 AM EST Surgery Gastroenterology at [place] [phone] Flor Velasco MD [facility] [place] [address] COLONOSCOPY, DIAGNOSTIC (WRVU 3.26) 07/27/2024 8:00 AM EST TH Visit (TeleHealth) [place] [address] Unruly Ramirez MD [facility] [place] [address] 08/03/2024 3:00 PM EST Office Visit Neurology at [address] [phone] Melvin Ramírez MD [facility] [place] [address] 08/25/2024 1:45 PM EDT Office [place] [address] Keven Church MD [facility] [address] Scheduled Procedures Name Priority Associated Diagnoses Date/Ti [...] who have questions please contact the health child day care teacher that requested your imaging first. ? Electronically signed by: Jorgito Michel MD, [facility] ([phone]), at 12/08/2021 4:51 PM Narrative 12/08/2021 4:51 [...] patients who have questions please contactthe health child day care teacher that requested your imaging first. Electronically signed by: Jorgito Michel MD, [facility]([phone]), at 12/08/2021 4:51 PM Gilbert La MD [facility] [place] ORDERABLES documented in this encounter Visit Diagnoses Not on filedocumented in this encounter Care Teams Flux Mixer Relationship Specialty Start Date End Date Geraldo Gracia DNP Elizabeth [address] [place] [address] PCP - General Family Medicine 07/17/21 09/30/22 documented as of this encounter
--- OUTSIDE RECORDS SUMMARY | 2024-06-23 18:20 | XMS_ITS | Encounter Summary ---
[place] [address] Care Team Providers Care Shock Absorption Floor Layer Name Role Phone Geraldo Gracia DNP Primary Care Provider [phone] Reason for Visit * Reason Comments Medication Refill Encounter Details Date Type Department Care Team (Late st Contact Info) Description 04/15/2022 Refill Neurology at [address] [address] Elizabeth Banerjee APRN [facility] [place] [address] Social History Tobacco Use Types Packs/Day Years [...] 9:45 AM EST Hospital Encounter [place] [address] Flor Velasco MD [facility] [place] [address] 06/30/2024 9:45 AM EST - 06/30/2024 10:45 AM EST Surgery Gastroenterology at [place] [phone] Flor Velasco MD [facility] [place] [address] COLONOSCOPY, DIAGNOSTIC (WRVU 3.26) 07/27/2024 8:00 AM EST TH Visit (TeleHealth) [place] [phone] Unruly Ramirez MD [facility] [place] [address] 08/03/2024 3:00 PM EST Office Visit Neurology at [address] [phone] Melvin Ramírez MD [facility] [address] 08/25/2024 1:45 PM EDT Office [place] [address] Keven Church MD [facility] [place] [address] Scheduled Procedures Name Priority Associated Diagnoses Date/Ti me COLONOSCOPY, DIAGNOSTIC (WRV U 3.26) Hematochezia 06/30/2024 9:45 AM EST documented as of this encounter Visit Diagnoses Not on filedocumented in this encounter Care Teams Shock Absorption Floor Layer Relationship Specialty Start Date End Date Geraldo Gracia DNP Elizabeth [address]NAN[address]Z [address] [place] [address] PCP - General Family Medicine 07/17/21 09/30/22 documented as of this encounter
--- OUTSIDE RECORDS SUMMARY | 2024-06-23 18:20 | XMS_ITS | Encounter Summary ---
[place] [address] Care Team Providers Care Yarn Weigher Name Role Phone Geraldo Gracia DNP Primary Care Provider Encounter Details Date Type Department Care Team (Late st Contact Info) Description 07/15/2022 Telephone [place] [phone] Destiney Blanco DO Social History Tobacco Use Types Packs/Day Years [...] encounter Miscellaneous Notes * Telephone Encounter - Destiney Blanco DO - 07/15/2022 10:24 AM EST Pt has labs after increasing cellcept. 1000 BID - noted increased fatigue - also reports increase stress due to brother on hospice - she tells me the WBC count and HGB are a little low. I do not have the results, will request again from [facility]. - will reduce cellcept to 500 BID - request labs - will follow up with pt in 2 week to see how she in feeling. documented in this encounter Plan of Treatment Upcoming Encounters Date Type Department Care Team (Latest Contact Info) Description 06/30/2024 9:45 AM EST Hospital Encounter Gastroenterology at [place] [phone] Flor Velasco MD [facility] [place] [address] 06/30/2024 9:45 AM EST - 06/30/2024 10:45 AM EST Surgery Gastroenterology at [place] [phone] Flor Velasco MD [facility] [place] [address] COLONOSCOPY, DIAGNOSTIC (WRVU 3.26) 07/27/2024 8:00 AM EST TH Visit (TeleHealth) Gastroenterology at [place] [phone] Unruly Ramirez MD [facility] [place] [address] 08/03/2024 3:00 PM EST Office Visit Neurology at [address] [phone] Melvin Ramírez MD [facility] [place] [address] 08/25/2024 1:45 PM EDT Office Visit [place] [address] Keven Church MD [facility] [place] [address] Scheduled Procedures Name Priority Associated Diagnoses Date/Ti me COLONOSCOPY, DIAGNOSTIC (WRV U 3.26) Hematochezia 06/30/2024 9:45 AM EST documented as of this encounter Visit Diagnoses Not on filedocumented in this encounter Care Teams Yarn Weigher Relationship Specialty Start Date End Date Geraldo Gracia, [facility] MARY [address] [place] [address] PCP - General Family Medicine 07/17/21 09/30/22 documented as of this encounter
--- OUTSIDE RECORDS SUMMARY | 2024-06-23 18:20 | XMS_ITS | Encounter Summary ---
Author Organization [facility] [place] [address] Care Team Providers Care Managing Editor Name Role Phone Geraldo Gracia [facility] Primary Care Provider Encounter Details Date Type Department Care Team (Latest Contact Info) Description 09/24/2022 Travel Social History Tobacco Use Types Packs/Day [...] 9:45 AM EST Hospital Encounter [place] [address] Flor Velasco MD [facility] [place] [address] 06/30/2024 9:45 AM EST - 06/30/2024 10:45 AM EST Surgery [place] [address] Flor Velasco MD [facility] [place] [address] COLONOSCOPY, DIAGNOSTIC (WRVU 3.26) 07/27/2024 8:00 AM EST TH Visit (TeleHealth) Gastroenterology at [place] [phone] Unruly Ramirez MD [facility] [place] [address] 08/03/2024 3:00 PM EST Office Visit Neurology at [address] [address] Melvin Ramírez MD [facility] [place] [address] 08/25/2024 1:45 PM EDT Office [place] [address] Keven Church MD [facility] [place] [address] Scheduled Procedures Name Priority Associated Diagnoses Date/Ti me COLONOSCOPY, DIAGNOSTIC (WRV U 3.26) Hematochezia 06/30/2024 9:45 AM EST documented as of this encounter Visit Diagnoses Not on filedocumented in this encounter Care Teams Managing Editor Relationship Specialty Start Date End Date Geraldo Gracia DNP [facility] MARY [address]NA[address] [place] [address] PCP - General Family Medicine 07/17/21 09/30/22 documented as of this encounter
--- OUTSIDE RECORDS SUMMARY | 2024-06-23 18:20 | XMS_ITS | Encounter Summary ---
[place] [address] Care Team Providers Care Account Officer Name Role Phone Geraldo Gracia [facility] Primary Care Provider [phone] Encounter Details Date Type Department Care Team (Late st Contact Info) Description 10/20/2022 [place] [phone] Trena Mandujano Social History Tobacco Use Types [...] * Telephone Encounter - Trena Mandujano - 10/20/2022 9:58 AM EDT [facility] called in to see if a PA has been done for pt's Echo. Call back: [phone] documented in this encounter Plan of Treatment Upcoming Encounters Date Type Department Care Team (Latest Contact Info) Description 06/30/2024 9:45 AM EST Hospital Encounter Gastroenterology at [place] [phone] Flor Velasco MD [facility] [place] [address] 06/30/2024 9:45 AM EST - 06/30/2024 10:45 AM EST Surgery Gastroenterology at [place] [phone] Flor Velasco MD [facility] [place] [address] COLONOSCOPY, DIAGNOSTIC (WRVU 3.26) 07/27/2024 8:00 AM EST TH Visit (TeleHealth) Gastroenterology at [place] [phone] Unruly Ramirez MD [facility] [place] [address] 08/03/2024 3:00 PM EST Office Visit Neurology at [address] [phone] Melvin Ramírez MD [facility] [place] [address] 08/25/2024 1:45 PM EDT Office [place] [address] Keven Church MD [facility] [place] [address] Scheduled Procedures Name Priority Associated Diagnoses Date/Ti me COLONOSCOPY, DIAGNOSTIC (WRV U 3.26) Hematochezia 06/30/2024 9:45 AM EST documented as of this encounter Visit Diagnoses Not on filedocumented in this encounter Care Teams Account Officer Relationship Specialty Start Date End Date Geraldo Gracia DNP [address] [place] [address] PCP - General Family Medicine 10/01/22 documented as of this encounter
--- OUTSIDE RECORDS SUMMARY | 2024-06-23 18:20 | XMS_ITS | Encounter Summary ---
[place] [address] Care Team Providers Care Speech Correction Assistant Name Role Phone Geraldo Gracia [facility] Primary Care Provider [phone] Reason for Visit * Diagnostic Test (Routine) - Closed Specialty Diagnoses / Procedures Referred By Mikaela costa Referred To Contact Radiology Diagnoses Chronic abdominal pain Procedures NM Gastric Emptying Scan Herlinda Hillman MD [facility] [place] [address] [place] [address] Referral ID Status Reason Start Date Expiration Date V isits Requested Visits Authorized [id number] Closed Specialty Service Requested 11/26/2021 05/28/2023 1 1 Encounter Details Date Type Department Care Team (Latest Contact Info) Description 12/08/2021 8:38 AM EDT Hospital Encounter [place] [address] Gilbert La MD [facility] [place] [address] Discharge Disposition: Home Social History [...] 02/10/2024 ipratropium (ATROVENT) 21 mcg (0.03 %) [place], Non-Aerosol INSTILL 1 SPRAY INTO BOTH NOSTRILS [...] 9:45 AM EST Hospital Encounter [place] [phone] Flor Velasco MD [facility] [place] [address] 06/30/2024 9:45 AM EST - 06/30/2024 10:45 AM EST Surgery Gastroenterology at [place] [phone] Flor Velasco MD [facility] [place] [address] COLONOSCOPY, DIAGNOSTIC (WRVU 3.26) 07/27/2024 8:00 AM EST TH Visit (TeleHealth) [place] [address] Unruly Ramirez MD [facility] [place] [address] 08/03/2024 3:00 PM EST Office Visit Neurology at [address] [phone] Melvin Ramírez MD [facility] [place] [place] [address] 08/25/2024 1:45 PM EDT Office [place] [address] Keven Church MD [facility] [place] [address] Scheduled Procedures Name Priority Associated Diagnoses Date/Ti [...] have questions please contact the health child care cook that requested your imaging first. ? Electronically signed by: Jorgito Michel MD, [facility] ([phone]), at 12/08/2021 4:51 PM Narrative 12/08/2021 4:51 [...] who have questions please contactthe health child care cook that requested your imaging first. Electronically signed by: Jorgito Michel MD, [facility]([phone]), at 12/08/2021 4:51 PM Gilbert La MD [facility] [place] ORDERABLES documented in this encounter Visit Diagnoses Not on filedocumented in this encounter Care Teams Speech Correction Assistant Relationship Specialty Start Date End Date Geraldo Gracia DNP Elizabeth [address]NAN[address]Z [address] [place] [address] PCP - General Family Medicine 07/17/21 09/30/22 documented as of this encounter
--- OUTSIDE RECORDS SUMMARY | 2024-06-23 18:20 | XMS_ITS | Encounter Summary ---
[place] [address] Care Team Providers Care International Flight Attendant Name Role Phone Geraldo Gracia [facility] Primary Care Provider Reason for Referral * Diagnostic Test (Routine) - Closed Specialty Diagnoses / Procedures Referred By Contac t Referred To Contact Radiology Diagnoses Chronic abdominal pain Procedures NM Gastric Emptying Scan Herlinda Hillman MD [facility] [place] [address] [place] [address] Referral ID Status Reason Start Date Expiration Date V isits Requested Visits Authorized [id number] Closed Specialty Service Requested 11/26/2021 05/28/2023 1 1 Reason for Visit * Diagnostic Test (Routine) - Closed Specialty Diagnoses / Procedures Referred By Contac t Referred To Contact Radiology Diagnoses Chronic abdominal pain Procedures NM Gastric Emptying Scan Herlinda Hillman MD [facility] [place] [address] [facility] [place] [address] Referral ID Status Reason Start Date Expiration Date V isits Requested Visits Authorized [id number] Closed Specialty Service Requested 11/26/2021 05/28/2023 1 1 Encounter Details Date Type Department Care Team (Latest Contact Info) Description 12/08/2021 8:37 AM EDT Hospital Encounter Nuclear Medicine at [facility] [place] [address] Gilbert La MD [facility] [place] [address] Chronic abdominal pain Discharge Disposition: Home Social History Tobacco Use [...] 02/10/2024 ipratropium (ATROVENT) 21 mcg (0.03 %) [place], Non-Aerosol INSTILL 1 SPRAY INTO BOTH NOSTRILS THREE TIMES A DAY 05/28/2021 06/08/2022 naproxen sodium (ANAPROX) 550 mg TabletIndications:Fer regan with aura and without status migrainosus, not [...] 9:45 AM EST Hospital Encounter [place] [address] Flor Velasco MD [facility] [place] [address] 06/30/2024 9:45 AM EST - 06/30/2024 10:45 AM EST [place] [address] Flor Velasco MD [facility] [place] [address] COLONOSCOPY, DIAGNOSTIC (WRVU 3.26) 07/27/2024 8:00 AM EST Visit (TeleHealth) [place] [address] Unruly Ramirez MD [facility] [place] [address] 08/03/2024 3:00 PM EST Office Visit Neurology at [facility] [address] [place] [address] Melvin Ramírez MD [facility] [place] [address] 08/25/2024 1:45 PM EDT Office [place] [address] Keven Church MD [facility] [place] [address] Scheduled Procedures Name Priority Associated Diagnoses Date/Ti [...] who have questions please contact the health critical care transport nurse that requested your imaging first. ? Narrative 12/08/2021 4:51 PM EDT EXAMINATION: NM [...] patients who have questions please contactthe health critical care transport nurse that requested your imaging first. Gilbert La MD [facility] ORDERABLES documented in this encounter Visit Diagnoses Diagnosis Chronic abdominal pain Abdominal pain, unspecified site Hematochezia Blood in stool documented in this encounter Care Teams International Flight Attendant Relationship Specialty Start Date End Date Geraldo Gracia DNP Elizabeth [address]NAN[address]Z [address] [place] [address] PCP - General Family Medicine 07/17/21 09/30/22 documented as of this encounter
--- OUTSIDE RECORDS SUMMARY | 2024-06-23 18:20 | XMS_ITS | Encounter Summary ---
Author Organization [facility] [place] [address] Care Team Providers Care Drawer In Plain Loom Name Role Phone Geraldo Gracia [facility] Primary Care Provider Encounter Details Date Type Department Care Team (Latest Contact Info) Description 06/07/2022 Travel Social History Tobacco Use Types Packs/Day [...] 9:45 AM EST Hospital En[place] [address] Flor Velasco MD [facility] [place] [address] 06/30/2024 9:45 AM EST - 06/30/2024 10:45 AM EST [place] [address] Flor Velasco MD [facility] [place] [address] COLONOSCOPY, DIAGNOSTIC (WRVU 3.26) 07/27/2024 8:00 AM EST TH Visit (TeleHealth) Gastroenterology at [place] [phone] Unruly Ramirez MD [facility] [place] [address] 08/03/2024 3:00 PM EST Office Visit Neurology at [address] [address] Melvin Ramírez MD [facility] [place] [address] 08/25/2024 1:45 PM EDT Office [place] [address] Keven Church MD [facility] [place] [address] Scheduled Procedures Name Priority Associated Diagnoses Date/Ti me COLONOSCOPY, DIAGNOSTIC (WRV U 3.26) Hematochezia 06/30/2024 9:45 AM EST documented as of this encounter Visit Diagnoses Not on filedocumented in this encounter Care Teams Drawer In Plain Loom Relationship Specialty Start Date End Date Geraldo Gracia DNP [facility] [address] [place] [address] PCP - General Family Medicine 07/17/21 09/30/22 documented as of this encounter
--- OUTSIDE RECORDS SUMMARY | 2024-06-23 18:20 | XMS_ITS | Encounter Summary ---
Author Organization [facility] Address [facility] [place] [address] Care Team Providers Care Metal Spinner Name Role Phone Geraldo Gracia DNP Primary Care Provider [phone] Encounter Details Date Type Department Care Team (Late st Contact Info) Description 07/10/2022 Orders [place] [address] Destiney Blanco, DO CREST syndrome Social History Tobacco Use Types [...] 9:45 AM EST Hospital En[place] [address] Flor Velasco MD [facility] [place] [address] 06/30/2024 9:45 AM EST - 06/30/2024 10:45 AM EST Surgery Gastroenterology at [address] Flor Velasco MD [facility] [place] [address] COLONOSCOPY, DIAGNOSTIC (WRVU 3.26) 07/27/2024 8:00 AM EST TH Visit (TeleHealth) Gastroenterology at [place] [phone] Unruly Ramirez MD [facility] [place] [address] 08/03/2024 3:00 PM EST Office Visit Neurology at [address] [address] Melvin Ramírez MD [facility] [place] [address] 08/25/2024 1:45 PM EDT Office Visit Rheumatology at [place] [phone] Keven Church MD [facility] [place] [address] Scheduled Procedures Name Priority Associated Diagnoses Date/Ti me COLONOSCOPY, DIAGNOSTIC (WRV U 3.26) Hematochezia 06/30/2024 9:45 AM EST documented as of this encounter Visit Diagnoses Diagnosis CREST syndrome Systemic sclerosis Hematochezia Blood in stool documented in this encounter Care Teams Metal Spinner Relationship Specialty Start Date End Date Geraldo Gracia DNP Elizabeth [address] [place] [address] PCP - General Family Medicine 07/17/21 09/30/22 documented as of this encounter
--- OUTSIDE RECORDS SUMMARY | 2024-06-23 18:20 | XMS_ITS | Encounter Summary ---
Author Organization [facility] [address] Care Team Providers Care Layout Mechanic Name Role Phone Geraldo Gracia [facility] Primary Care Provider [phone] Reason for Visit * Reason Onset Date Comments Appointment 09/09/2022 Encounter Details Date Type Department Care Team (Late st Contact Info) Description 09/09/2022 Telephone Neurology at [address] [phone] Elizabeth Banerjee APRN [facility] [place] [address] Appointment Social History Tobacco Use Types Packs/Day [...] encounter Miscellaneous Notes * Telephone Encounter - Violeta Hearn - 09/09/2022 1:53 PM EDT Copied from [facility] #[id number]. Topic: Specialty Dept CRMs - Appointment Needed >> Sep 09, 2022 1:28 PM Brien Woo wrote: Appt Needed Specialist Elizabeth Banerjee Relationship (if other than patient-full name): Patient Appt. Type Needed: Other Reason for Visit: Patient called asking to switch in person FUV on 10/30/22 to a telehealth. Please call to advise at [phone]. documented in this encounter Plan of Treatment Upcoming Encounters Date Type Department Care Team (Latest Contact Info) Description 06/30/2024 9:45 AM EST Hospital Encounter [place] [address] Flor Velasco MD [facility] [address] 06/30/2024 9:45 AM EST - 06/30/2024 10:45 AM EST Surgery [place] [address] Flor Velasco MD [facility] [place] [address] COLONOSCOPY, DIAGNOSTIC (WRVU 3.26) 07/27/2024 8:00 AM EST TH Visit (TeleHealth) [place] [address] Unruly Ramirez MD [facility] [place] [address] 08/03/2024 3:00 PM EST Office Visit Neurology at [address] [address] Melvin Ramírez MD [facility] [place] [address] 08/25/2024 1:45 PM EDT Office [place] [address] Keven Church MD [facility] [place] [address] Scheduled Procedures Name Priority Associated Diagnoses Date/Ti me COLONOSCOPY, DIAGNOSTIC (WRV U 3.26) Hematochezia 06/30/2024 9:45 AM EST documented as of this encounter Visit Diagnoses Not on filedocumented in this encounter Care Teams Layout Mechanic Relationship Specialty Start Date End Date Geraldo Gracia DNP [address] [place] [address] PCP - General Family Medicine 10/01/22 documented as of this encounter
--- OUTSIDE RECORDS SUMMARY | 2024-06-23 18:20 | XMS_ITS | Encounter Summary ---
[place] [address] Care Team Providers Care Breakfast Host Name Role Phone Geraldo Gracia DNP Primary Care Provider Encounter Details Date Type Department Care Team (Late st Contact Info) Description 02/09/2022 Orders [place] [phone] Herlinda Hillman MD [facility] [place] [address] Social History Tobacco Use Types Packs/Day Years [...] 9:45 AM EST Hospital En[place] [phone] Flor Velasco MD [facility] [place] [address] 06/30/2024 9:45 AM EST - 06/30/2024 10:45 AM EST Surgery Gastroenterology at [place] [phone] Flor Velasco MD [facility] [place] [address] COLONOSCOPY, DIAGNOSTIC (WRVU 3.26) 07/27/2024 8:00 AM EST TH Visit (TeleHealth) [place] [address] Unruly Ramirez MD [facility] [place] [address] 08/03/2024 3:00 PM EST Office Visit Neurology at [address] [phone] Melvin Ramírez MD [facility] [place] [address] 08/25/2024 1:45 PM EDT Office Visit Rheumatology at [place] [phone] Keven Church MD [facility] [place] [address] Scheduled Procedures Name Priority Associated Diagnoses Date/Ti me COLONOSCOPY, DIAGNOSTIC (WRV U 3.26) Hematochezia 06/30/2024 9:45 AM EST documented as of this encounter Visit Diagnoses Not on filedocumented in this encounter Care Teams Breakfast Host Relationship Specialty Start Date End Date Geraldo Gracia DNP [facility] M[address] [place] [address] PCP - General Family Medicine 07/17/21 09/30/22 documented as of this encounter
--- OUTSIDE RECORDS SUMMARY | 2024-06-23 18:20 | XMS_ITS | Encounter Summary ---
[place] [address] Care Team Providers Care Nurse Instructor Name Role Phone Geraldo Gracia [facility] Primary Care Provider Reason for Visit * Reason Onset Date Comments Peer To Peer 11/27/2021 Prior Authorization 11/27/2021 Encounter Details Date Type Department Care Team (Late st Contact Info) Description 11/27/2021 Telephone Neurology at [address] [phone] Elizabeth Banerjee APRN [facility] [place] [address] Peer To Peer; Prior Authorization Social History Tobacco Use Types [...] encounter Miscellaneous Notes * Telephone Encounter - Aliya Maldonado RN - 12/11/2021 2:56 PM EDT Images from the original note were not included. * Telephone Encounter - Lilian Lynn - 12/11/2021 2:07 PM EDT Pat from [facility] called as an FYI that patient's Emgality was approved today. Approval letter was faxed today. * Telephone Encounter - Aliya Maldonado RN - 12/10/2021 3:55 PM EDT Emgality appeal and office note faxed to [facility] * Telephone Encounter - Bernice Mehta RN - 12/02/2021 2:23 PM EDT Images from the original note were not included. * Telephone Encounter - Aliya Maldonado RN - 11/27/2021 9:41 AM EDT PA for Emgality continuation [facility] at [phone] to be reviewed 11/28/2021 documented in this encounter Plan of Treatment Upcoming Encounters Date Type Department Care Team (Latest Contact Info) Description 06/30/2024 9:45 AM EST Hospital Encounter [place] [address] Flro Velasco MD [facility] [place] [address] 06/30/2024 9:45 AM EST - 06/30/2024 10:45 AM EST Surgery Gastroenterology at [place] [phone] Flor Velasco MD [facility] [place] [address] COLONOSCOPY, DIAGNOSTIC (WRVU 3.26) 07/27/2024 8:00 AM EST TH Visit (TeleHealth) Gastroenterology at [place] [phone] Unruly Ramirez MD [facility] [place] [address] 08/03/2024 3:00 PM EST Office Visit Neurology at [address] [address] Melvin Ramírez MD [facility] [place] [address] 08/25/2024 1:45 PM EDT Office Visit Rheumatology at [place] [phone] Keven Church MD [facility] [place] [address] Scheduled Procedures Name Priority Associated Diagnoses Date/Ti me COLONOSCOPY, DIAGNOSTIC (WRV U 3.26) Hematochezia 06/30/2024 9:45 AM EST documented as of this encounter Visit Diagnoses Not on filedocumented in this encounter Care Teams Nurse Instructor Relationship Specialty Start Date End Date Geraldo Gracia DNP Elizabeth [address] [place] [address] PCP - General Family Medicine 07/17/21 09/30/22 documented as of this encounter
--- OUTSIDE RECORDS SUMMARY | 2024-06-23 18:20 | XMS_ITS | Encounter Summary ---
[place] [address] Care Team Providers Care Citrus Peeler Name Role Phone Geraldo Gracia DNP Primary Care Provider [phone] Reason for Visit * Reason Comments Prior Authorization Emgality 120 mg/ml p en injector Encounter Details Date Type Department Care Team (Late st Contact Info) Description 03/03/2022 Specialty [place] [phone] Willy Sumner, [employer] OPERATOR Social History Tobacco Use Types Packs/Day Years Used Date Smoking Tobacco: Former Cigarettes Q uit: 1992 Smokeless Tobacco: Never Comments:In high school smok ed maybe a 0.5 of a cigarette daily Alcohol Use Standard Drinks/Week Comments Yes 0 (1 standard drink = 0.6 oz pur e alcohol) once a month IPV Inpatient Questions Answer [...] as of this encounter Progress Notes * Willy Sumner - 03/03/2022 12:03 PM EDT [facility], Medication Prior Authorization Submission Patient: Karolina Olivas Patient : 1975 Patient Address: [address] [place] [address], [place] [address] (home) Medication Name: EMGALITY PEN 120 MG/ML SUBCUTANEOUS PEN INJECTOR Medication ID: [id number] Subscriber Insurance: [employer] ([employer]) Subscriber Insurance Comment: Fax: Physician: CHARLIE AWAN Physician Comment: Sent Via: Telephone Brasher: Ref/Case/PA#: Medication Strength Frequency Requested: 120 mg subcutaneously once every 28 days Qty/Day Supply: 06/27 New Start: Insurance Change Diagnosis & ICD-10 Code: Migraine without aura and without status migrainosus, not intractable G43.009 Patient Notified: Yes Submission Notes: - PA submitted via phone due to CMM error. Willy Sumner 03/03/22 12:24 PM * Willy Sumner - 03/03/2022 12:03 PM EDT [facility], Prior Authorization Approval Medication Name: EMGALITY PEN 120 MG/ML SUBCUTANEOUS PEN INJECTOR Medication ID: [id number] Approval Dates: 03/03/2022 to 03/03/2023 Insurance requirements/notes: None Other Notes: None Case/Reference #: Approval notification Received via: Telephone Copay: Unable to determine Copay assistance: Copay Notes: No paid claim due to refill too soon. Cannot obtain copay cost until medication is fillable in March. Pt endorses not needing another fill until that time Insurance mandated Pharmacy: Fillable at [facility]: Yes Pharmacy staff will be reaching out to the patient to inform them of their medication's approval bytheir insurance. If applicable, a pharmacist will speak with the patient to offer our specialty pharmacy services and to arrange delivery of their medication. Willy Sumner 03/03/22 12:24 PM documented in this encounter Plan of Treatment Upcoming Encounters Date Type Department Care Team (Latest Contact Info) Description 06/30/2024 9:45 AM EST Hospital En[place] [address] Flor Velasco MD [facility] [place] [address] 06/30/2024 9:45 AM EST - 06/30/2024 10:45 AM EST [place] [address] Flor Velasco MD [facility] [place] [address] COLONOSCOPY, DIAGNOSTIC (WRVU 3.26) 07/27/2024 8:00 AM EST TH Visit (TeleHealth) [place] [address] Unruly Ramirez MD [facility] [place] [address] 08/03/2024 3:00 PM EST Office Visit Neurology at [address] [address] Melvin Ramírez MD [facility] DR [place] [address] 08/25/2024 1:45 PM EDT Office Visit Rheumatology at [facility] [place] [address] Keven Church MD [facility] [place] [address] Scheduled Procedures Name Priority Associated Diagnoses Date/Ti me COLONOSCOPY, DIAGNOSTIC (WRV U 3.26) Hematochezia 06/30/2024 9:45 AM EST documented as of this encounter Visit Diagnoses Not on filedocumented in this encounter Care Teams Citrus Peeler Relationship Specialty Start Date End Date Geraldo Gracia DNP [address] [place] [address] PCP - General Family Medicine 10/01/22 documented as of this encounter
--- OUTSIDE RECORDS SUMMARY | 2024-06-23 18:20 | XMS_ITS | Encounter Summary ---
Author Organization [facility] [place] [address] Care Team Providers Care Veterinary Livestock Inspector Name Role Phone Geraldo Gracia [facility] Primary Care Provider Reason for Visit * Reason Onset Date Comments Appointment 08/14/2022 Encounter Details Date Type Department Care Team (Late st Contact Info) Description 08/14/2022 Telephone Neurology at [address] [phone] Elizabeth Banerjee APRN [facility] [place] [address] Appointment Social History Tobacco Use Types Packs/Day [...] * Telephone Encounter - Violeta Hearn - 08/14/2022 11:06 AM EDT Copied from [facility] #[id number]. Topic: Specialty Dept CRMs - Appointment Needed >> Aug 14, 2022 10:22 AM Anneliese Vigil wrote: Appt Needed Specialist : Chriss Relationship (if other than patient-full name): self Appt. Type Needed: Patient states has 10/30 appt with the provider and is requesting if she can move her appointment to 10/29 if possible as patient has appointment with Gastro at 9:30am the same dayto save trip as patient has to drive [address] . This agent checked the wait list but no available on 10/29 with the provider for now.Please call the patient back to help reschedule. documented in this encounter Plan of Treatment Upcoming Encounters Date Type Department Care Team (Latest Contact Info) Description 06/30/2024 9:45 AM EST Hospital Encounter [place] [address] Flor Velasco MD [facility] [place] [address] 06/30/2024 9:45 AM EST - 06/30/2024 10:45 AM EST Surgery [place] [address] Flor Velasco MD [facility] [place] [address] COLONOSCOPY, DIAGNOSTIC (WRVU 3.26) 07/27/2024 8:00 AM EST TH Visit (TeleHealth) [place] [address] Unruly Ramirez MD [facility] [place] [address] 08/03/2024 3:00 PM EST Office Visit Neurology at [facility] [address] [place] [phone] Melvin Ramírez MD [facility] [place] [address] 08/25/2024 1:45 PM EDT Office Visit Rheumatology at [facility] [place] [phone] Keven Church MD [facility] [place] [address] Scheduled Procedures Name Priority Associated Diagnoses Date/Ti me COLONOSCOPY, DIAGNOSTIC (WRV U 3.26) Hematochezia 06/30/2024 9:45 AM EST documented as of this encounter Visit Diagnoses Not on filedocumented in this encounter Care Teams Veterinary Livestock Inspector Relationship Specialty Start Date End Date Geraldo Gracia DNP [facility] MARY [address] [place] [address] PCP - General Family Medicine 07/17/21 09/30/22 documented as of this encounter
--- OUTSIDE RECORDS SUMMARY | 2024-06-23 18:20 | XMS_ITS | Encounter Summary ---
Author Organization [facility] [place] [address] Care Team Providers Care Outpatient Services Director Name Role Phone Geraldo Gracia [facility] Primary Care Provider Encounter Details Date Type Department Care Team (Latest Contact Info) Description 10/20/2022 Travel Social History Tobacco Use Types Packs/Day [...] 9:45 AM EST Hospital En[place] [address] Flor Velasco MD [facility] [place] [address] 06/30/2024 9:45 AM EST - 06/30/2024 10:45 AM EST [place] [address] Flor Velasco MD [facility] [place] [address] COLONOSCOPY, DIAGNOSTIC (WRVU 3.26) 07/27/2024 8:00 AM EST TH Visit (TeleHealth) Gastroenterology at [place] [phone] Unruly Ramirez MD [facility] [place] [address] 08/03/2024 3:00 PM EST Office Visit Neurology at [address] [address] Melvin Ramírez MD [facility] [place] [place] [address] 08/25/2024 1:45 PM EDT Office [place] [address] Keven Church MD [facility] [place] [address] Scheduled Procedures Name Priority Associated Diagnoses Date/Ti me COLONOSCOPY, DIAGNOSTIC (WRV U 3.26) Hematochezia 06/30/2024 9:45 AM EST documented as of this encounter Visit Diagnoses Not on filedocumented in this encounter Care Teams Outpatient Services Director Relationship Specialty Start Date End Date Geraldo Gracia DNP [address] [place] [address] PCP - General Family Medicine 10/01/22 documented as of this encounter
--- OUTSIDE RECORDS SUMMARY | 2024-06-23 18:20 | XMS_ITS | Encounter Summary ---
Author [place] [address] Care Team Providers Care Rotary Shear Worker Helper Name Role Phone Geraldo Gracia [facility] Primary Care Provider Encounter Details Date Type Department Care Team (Late st Contact Info) Description 12/22/2021 [place] [phone] Shiela Reddy MA Social History Tobacco Use Types Packs/Day Years [...] encounter Miscellaneous Notes * Telephone Encounter - Shiela Reddy RMA - 12/22/2021 3:40 PM EDT Attempted to reach patient for pre-charting. THOM WHELAN documented in this encounter Plan of Treatment Upcoming Encounters Date Type Department Care Team (Latest Contact Info) Description 06/30/2024 9:45 AM EST Hospital Encounter Gastroenterology at [place] [phone] Flor Velasco MD [facility] [place] [address] 06/30/2024 9:45 AM EST - 06/30/2024 10:45 AM EST Surgery Gastroenterology at [place] [address] Flor Velasco MD [facility] [place] [address] COLONOSCOPY, DIAGNOSTIC (WRVU 3.26) 07/27/2024 8:00 AM EST TH Visit (TeleHealth) Gastroenterology at [place] [phone] Unruly Ramirez MD [facility] [place] [address] 08/03/2024 3:00 PM EST Office Visit Neurology at [address] [phone] Melvin Ramírez MD [facility] [place] [address] 08/25/2024 1:45 PM EDT Office Visit Rheumatology at [place] [phone] Keven Church MD [facility] [place] [address] Scheduled Procedures Name Priority Associated Diagnoses Date/Ti me COLONOSCOPY, DIAGNOSTIC (WRV U 3.26) Hematochezia 06/30/2024 9:45 AM EST documented as of this encounter Visit Diagnoses Not on filedocumented in this encounter Care Teams Rotary Shear Worker Helper Relationship Specialty Start Date End Date Geraldo Gracia DNP Elizabeth HERNANDEZ [address] [place] [address] PCP - General Family Medicine 07/17/21 09/30/22 documented as of this encounter
--- OUTSIDE RECORDS SUMMARY | 2024-06-23 18:20 | XMS_ITS | Encounter Summary ---
[place] [address] Care Team Providers Care Plug Making Operator Name Role Phone Geraldo Gracia [facility] Primary Care Provider [phone] Reason for Referral * Diagnostic Test (Routine) - Closed Specialty Diagnoses / Procedures Referred By Mikaela costa Referred To Contact Radiology Diagnoses Chronic abdominal pain Procedures NM Gastric Emptying Scan Herlinda Hillman MD [facility] [place] [address] [place] [address] Referral ID Status Reason Start Date Expiration Date V isits Requested Visits Authorized [id number] Closed Specialty Service Requested 11/26/2021 05/28/2023 1 1 Encounter Details Date Type Department Care Team (Late st Contact Info) Description 11/26/2021 Orders [place] [address] Herlinda Hillman MD [facility] [place] [address] Chronic abdominal pain Social History [...] 9:45 AM EST Hospital Encounter [place] [address] Flor Velasco MD [facility] [place] [address] 06/30/2024 9:45 AM EST - 06/30/2024 10:45 AM EST Surgery [place] [address] Flor Velasco MD [facility] [place] [address] COLONOSCOPY, DIAGNOSTIC (WRVU 3.26) 07/27/2024 8:00 AM EST TH Visit (TeleHealth) [place] [address] Unruly Ramirez MD [facility] [place] [address] 08/03/2024 3:00 PM EST Office Visit Neurology at [address] [phone] Melvin Ramírez MD [facility] [place] [address] 08/25/2024 1:45 PM EDT Office [place] [address] Keven Church MD [facility] [place] [address] Scheduled Procedures Name Priority Associated Diagnoses Date/Ti me COLONOSCOPY, DIAGNOSTIC (WRV U 3.26) Hematochezia 06/30/2024 9:45 AM EST documented as of this encounter Results * NM Gastric Emptying [...] who have questions please contact the health patient care specialist that requested your imaging first. ? Electronically signed by: Jorgito Michel MD, [facility] ([phone]), at 12/08/2021 4:51 PM Narrative 12/08/2021 4:51 [...] patients who have questions please contactthe health patient care specialist that requested your imaging first. Gilbert La MD [facility] [place] ORDERABLES documented in this encounter Visit Diagnoses Diagnosis Chronic abdominal pain Abdominal pain, unspecified site Chronic abdominal pain Abdominal pain, unspecified site Hematochezia Blood in stool documented in this encounter Care Teams Plug Making Operator Relationship Specialty Start Date End Date Geraldo Gracia DNP [address] [place] [address] PCP - General Family Medicine 07/17/21 09/30/22 documented as of this encounter
--- OUTSIDE RECORDS SUMMARY | 2024-06-23 18:20 | XMS_ITS | Encounter Summary ---
[place] [address] Care Team Providers Care Wedding Day Coordinator Name Role Phone Geraldo Gracia DNP Primary Care Provider [phone] Encounter Details Date Type Department Care Team (Latest Contact Info) Description 06/08/2022 2:30 PM EST Office [place] [address] Destiney Blanco, DO Undifferentiated connective tissue disease; CREST (calcinosis, Raynaud's phenomenon, esophageal dysfunction, sclerodactyly, telangiectasia); Other forms of systemic lupus erythematosus, unspecified organ involvement status; Hypothyroidism, unspecified type; Raynaud's phenomenon without gangrene; Chronic right shoulder pain; High risk medication use Social History Tobacco [...] Sign Reading Time Taken Comments Blood Pressure 117/59 06/08/2022 2:07 PM EST Pulse 102 06/08/2022 2:07 PM EST Temperature 36.5 ??C (97.7 ??F) 06/08/2022 2:07 PM ES T Respiratory Rate 16 06/08/2022 2:07 PM EST Oxygen Saturation 100% 06/08/2022 2:07 PM EST Inhaled Oxygen Concentration - - Weight 46.4 kg (102 lb 6.4 oz) 06/08/2022 2:07 P M EST Height 157.5 cm (5' 2) 06/08/2022 2:07 PM EST Body Mass Index 18.73 06/08/2022 2:07 PM EST documented in this encounter Progress Notes * Destiney Blanco, DO - 06/08/2022 2:30 PM EST Rheumatology Outpatient Follow Up Note PCP: AVA Justin Brendon is a 46 y.o. female who we are seeing for the continuing management ofUndifferentiated connective tissue disease -->SLE/ CREST overlap Rheum History: #Undifferentiated connective tissue disease -->SLE/ [...] given cream for improvement - ARNULFO at [facility] 1:320 speckled and cytoplasmic, COLBY negative,??dsDNA negative,??anti-mitochondrial [...] Awaiting report - Currently on Plaquenil 200mg daily Interval History: -Patient reports increased stress in her life with family notes grandson was in the hospital, brother is also in the hospital. -Continues to have intermittent facial rash over cheeks and nasal area, not associated with sun -Reports worsening generalized joint pain and morning stiffness in her hands wrists elbows knees. Reports her knees are the worst. No associated swelling. -Continues to have trouble with constipation. Does have improvement with Imodium. She is following with GI who feels she may have crest related to GI dysmotility. She missed an appointment today withGI. -No shortness of breath, dyspnea on exertion -Continues to have pain in the right shoulder. Did not go to physical therapy but is doing home exercises. Has had intra-articular steroid injection in the past with improvement. -Reports financial constraints due to medical bills -In February she had messaged me on the portal complaining of facial tightness/tingling sensation ROS (positives in bold): Gen: no fevers, no chills, no night sweats + fatigue, nonrestorative sleep, stress Pulm: no SOB CV: no CP Abd: no abd pain, no nausea, no vomiting, no diarrhea MSK: Joint pain, generalized joint arthralgias Skin: Facial rash, intermittent, Raynaud's, no oral ulcers Meds and Allergies: Reviewed in eDH Physical exam: BP 117/59 (BP Location (NBP): Right arm, Patient Position: Sitting, BP Cuff Sizes: Adult (25-34 cm)) Pulse (!) 102 Temp 36.5 ??C (97.7 ??F) (Temporal) Resp 16 Ht 157.5 cm (5' 2) Wt 46.4 kg(102 lb 6.4 oz) SpO2 100% BMI 18.73 kg/m?? Gen: well appearing, alert and oriented x 3, nad HEENT: NCAT, EOMI, moist mucous membranes, no oral ulcers, normal sclerae Lymph: no cervical LAD Heart: regular rate, no murmurs, rubs or gallops Lungs: clear to auscultation b/l Abd: soft, +bs, NT/ND Skin: warm and dry, no rheumatologic rashes, dilated no capillaries on capillaroscopy. No sclerodactyly of the fingers, chest abdomen, lower extremities. Possible tightening of the skin over the forehead and around the mouth. Nails: no nail pitting, dilated capillaries on capillaroscopy exam Joints: Shoulders: Right shoulder with reduced range of motion in abduction. Pain with palpation over biceps tendon. Positive Rosario, crossarm abduction, empty can Elbows:FROM Wrists: FROM, no swelling, non-tender Hands: No synovitis, mildly tender with palpation over the MCPs, full claw and fist Hips: FROM, no tenderness Knees: FROM, no effusion, no tenderness Ankles: FROM, non-tender, no effusion Feet: no MTP compression tenderness, no swelling in MTP/DIP/PIPs Labs/Studies: Reviewed. R shoulder subacromial injection. Informed consent was obtained after a discussion of the nature of the procedure, its risks, benefits and possible alternatives. Immediately prior to the start of the procedure a time out was taken: - The patient's identity was confirmed using two identifiers - The intended procedure, patient positioning and availability of all required equipment was also confirmed. The R shoulder was prepped in sterile fashion. Ethyl chloride used as local anaesthetic. The joint was entered and 40 mg of methylprednisolone and 2 ml of lidocaine were injected. The patient tolerated the procedure well with no immediate complications. Patient was advised to rest the joint for 5 days and watch for signs of infection including fever. Assessment/Plan: Karolina Olivas is a 46 y.o. 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 ? Patient initially presented with symptoms in 2020 [...] CREST syndrome like picture-with Raynaud's, GI dysmotility. No evidence of pulmonary hypertension on echocardiogram 2021, ILD on chest CT 11/19. Since December she had noted worsening facial tightness in February although today she states symptoms are stable. No symptoms of tightness or thickening in her hands. But she does note diffuse generalized arthralgias in the hands, knees, wo rse in the morning for about 45 minutes. No associated joint swelling. She also notes intermittent erythematous rash over her cheeks and nasal bridge. She does report increased stress in her life with family members being ill, and financial stress as well. For her generalized joint arthralgias, with associated morning stiffness. no synovitis on exam. Sheis on HCQ 200mg daily. Can consider Cellcept or MTX. MTX has been shown to be effective for arthralgias associated with CREST (DOI: 10.1093/rheumatology/jtw362) and SLE (DOI:10.1177/0538353337176657). Will plan on starting on 15 mg of MTX weekly and folic acid, after obtaining further labs and GI okay . Patient has continued right shoulder pain with impingement on exam. She has responded well to intra-articular steroid injection in the past. Will repeat today repeat today. Eye exam up to date- 07/2021 to monitor for Plaquenil toxicity. - plan for repeat TTE 10/2022, annual PFTs, chest CT every 2 years (2023) Plan - Labs today: CBC, CMP, C3, C4, UA, TSH, Hepatitis B, Hep C labs. - Subacromial steroid injection to the R shoulder. - Continue HCQ 200mg daily - Continue Cymbalta 30mg daily - Will discuss with GI about using MTX, given hx of stage 1 liver fibrosis. - Plan to start on MTX 15 mg weekly and folic acid daily once labs are back and GI okays. Patient was discussed with Dr. Shay Blanco DO, PGY4 Rheumatology Fellow Pager: [phone] * Shay Blanco MD - 06/08/2022 2:30 PM EST Rheumatology Staff Note I have had the pleasure of interviewing and examining the patient independently. I find the assessment and plan of the fellow to be accurate and correct and endorse it-quite challenging will see if palliation can be achieved with steroid increase rather than making her IVIg-dependent Shay Blanco documented in this encounter Plan of Treatment Upcoming Encounters Date Type Department Care Team (Latest Contact Info) Description 06/30/2024 9:45 AM EST Hospital Encounter [place] [address] Flor Velasco MD [facility] [place] [address] 06/30/2024 9:45 AM EST - 06/30/2024 10:45 AM EST Surgery [place] [address] Flor Velasco MD [facility] [place] [address] COLONOSCOPY, DIAGNOSTIC (WRVU 3.26) 07/27/2024 8:00 AM EST TH Visit (TeleHealth) [place] [phone] Unruly Ramirez MD [facility] GASTRO[place] [address] 08/03/2024 3:00 PM EST Office Visit Neurology at [facility] [address] [place] [address] Melvin Ramírez MD [facility] DR [facility]SC[facility] [place] [address] 08/25/2024 1:45 PM EDT Office [place] [phone] Keven Church MD [facility] [place] [address] Scheduled Procedures Name Priority Associated Diagnoses Date/Ti me COLONOSCOPY, DIAGNOSTIC (WRV U 3.26) Hematochezia 06/30/2024 9:45 AM EST documented as of this encounter Procedures Procedure Name Priority Date/Time Associated Diagnosis Comments URINE HOLD Routine 06/08/2022 4:35 PM EST URINALYSIS MICROSCOPIC EXAM Routine 06/08/2022 4:27 PM EST URINALYSIS WITH REFLEX CULTURE Routine 06/08/2022 4:27 PM EST Undifferentiated connective tissue disease CREST (calcinosis, Raynaud's phenomenon, esophageal dysfunction, sclerodactyly, telangiectasia) Other forms of systemic lupus erythematosus, unspecified organ involvement status HEMOGRAM Routine 06/08/2022 4:14 PM EST Undifferentiated connective tissue disease CREST (calcinosis, Raynaud's phenomenon, esophageal dysfunction, sclerodactyly, telangiectasia) Other forms of systemic lupus erythematosus, unspecified organ involvement status DIFFERENTIAL, AUTOMATED Routine 06/08/2022 4:14 PM EST Undifferentiated connective tissue disease CREST (calcinosis, Raynaud's phenomenon, esophageal dysfunction, sclerodactyly, telangiectasia) Other forms of systemic lupus erythematosus, unspecified organ involvement status HC HEPATITIS C ANTIBODY Routine 06/08/2022 4:14 PM EST High risk medication use HC HEPATITIS B CORE AB Routine 4:14 PM EST High risk medication use HC HEPATITIS B SURFACE AB Routine 06/08/2022 4:14 PM EST High risk medication use HC HEPATITIS B SURFACE AG Routine 06/08/2022 4:14 PM EST High risk medication use HC CBC,PLT & AUTO DIFF Routine 4:14 PM EST Undifferentiated connective tissue disease CREST (calcinosis, Raynaud's phenomenon, esophageal dysfunction, sclerodactyly, telangiectasia) Other forms of systemic lupus erythematosus, unspecified organ involvement status HC COMPLEMENT,C3 SERUM Routine 4:14 PM EST Undifferentiated connective tissue disease CREST (calcinosis, Raynaud's phenomenon, esophageal dysfunction, sclerodactyly, telangiectasia) Other forms of systemic lupus erythematosus, unspecified organ involvement status HC COMPLEMENT C4, PLASMA Routine 06/08/2022 4:14 PM EST Undifferentiated connective tissue disease CREST (calcinosis, Raynaud's phenomenon, esophageal dysfunction, sclerodactyly, telangiectasia) Other forms of systemic lupus erythematosus, unspecified organ involvement status HC THYROID STIMULATING HORMONE, SERUM Routine 06/08/2022 4:14 PM EST Hypothyroidism, unspecified type COMPREHENSIVE METABOLIC PANEL Routine 06/08/2022 4:14 PM EST Undifferentiated connective tissue disease CREST (calcinosis, Raynaud's phenomenon, esophageal dysfunction, sclerodactyly, telangiectasia) Other forms of systemic lupus erythematosus, unspecified organ involvement status documented in this encounter Results * Urine Hold (06/08/2022 4:35 PM EST) Hold, Urine Sample in lab. [facility] Urine Urine / Unknown 06/08/2022 4 :35 PM EST 06/08/2022 4:35 PM EST Iris BLANCHARD URINE ORDERABLES Performing Organization Address City/[facility]/ZIP Co de Phone Number [facility] [place] [address] * Urinalysis Microscopic Exam (06/08/2022 4:27 PM EST) RBC, Urine 3 0 - 4 /HPF [facility] WBC, Urine 1 0 - 5 /HPF [facility] Squamous Epithelial Cells Raw Data, Urine 1 <=4 /HPF [facility] Urine NS 06/08/2022 4:27 PM EST 06/08/2022 4:37 PM EST Narrative Resulting Agency Comment Spec In Lab Destiney Blanco DO URINE ORDERABLES Performing Organization Address City/[facility] Co de Phone Number [facility] [place] [address] * (ABNORMAL) Urinalysis with reflex Culture (06/08/2022 4:27 PM EST) Glucose, Urine Dipstick Negative Negative mg/dL [facility] Protein, Urine Dipstick Trace(A) Negative mg/dL [facility] Bilirubin, Urine Dipstick Negative Negative mg/dL [facility] Comment: Clinical correlation required for positive Urine Bilirubin results as false positive may occur with some drugs and drug related products. If a false positive is suspected a serum total bilirubin should be considered if clinically indicated. Urobilinogen, Urine Dipstick Normal Normal mg/dL [facility] pH, Urn (dipstick) 6.5 5.0 - 8.0 [facility] Blood, Urine Dipstick Negative Negative mg/dL [facility] Ketone, Urine Dipstick Negative Negative mg/dL [facility] Nitrite, Urine Dipstick Negative Negative [facility] Leukocytes, Urine Dipstick Negative Negative mcL [facility] Appearance, Urine Dipstick Clear Clear [facility] Specific [place] Urine Automated 1.022 1.005 - 1.030 [facility] Color, Urine Dipstick Yellow Yellow [facility] Reflex to Culture No [facility] Urine NS 06/08/2022 4:27 PM EST 06/08/2022 4:35 PM EST Narrative Resulting Agency Comment Spec In Lab Shay Blanco MD URINE ORDERABLES Performing Organization Address City/[facility] [place] [address] * Differential, Automated (06/08/2022 4:14 PM EST) Neutrophil % 69.7 % [facility] Neutrophil Absolute 3.80 1.70 - 6.10 x10(3)/[facility] Lymph % 16.1 % [facility] Lymphocytes Abs 0.9 0.9 - 3.2 x10(3)/[facility] Monocyte % 9.3 % [facility] Monocyte Abs 0.5 0.3 - 0.9 x10(3)/[facility] Eos % 2.7 % [facility] Eosinophils Abs 0.2 0.0 - 0.4 x10(3)/[facility] Basophil % 1.8 % [facility] Baso Absolute 0.1 0.0 - 0.1 x10(3)/[facility] Immature Gran % 0.40 % [facility] Comment: Immature granulocytes(IG's)percentage and absolute count will include metamyelocytes, myelocytes, and promyelocytes. Blood smears from CBCs yielding IG's will be scanned manually for concordance. If this scan disagrees with the automated IG or if promyelocytes are noted, a manual differential will be performed. Immature Gran Absolute 0.02 0.00 - 0.04 x10(3)/[facility] Blood 06/08/2022 4:14 PM EST 06/08/2022 4:32 PM EST Narrative Resulting Agency Comment Spec In Lab Destiney Blanco DO HEMATOLOGY ORDERABLE S Performing Organization Address [facility] [place] [address] * Hemogram (06/08/2022 4:14 PM EST) White Blood Cell 5.5 4.0 - 9.5 x10(3)/[facility] Red Blood Cell 4.21 4.00 - 5.21 x10(6)/[facility] Hemoglobin 13.4 11.7 - 15.5 g/dL [facility] Hematocrit 39.0 35.7 - 45.8 % [facility] Mean Cell Volume 92.6 82.6 - 94.4 fL [facility] Mean Cell Hemoglobin 31.8 27.1 - 32.0 pg [facility] Mean Cell Hemoglobin Concentration 34.4 31.7 - 35.0 g/dL [facility] Platelet 256 145 - 357 x10(3)/[facility] RDW Standard Deviation 41.2 37.0 - 46.0 fL [facility] RDW coefficient of variation 12.0 11.5 - 14.1 % [facility] Mean Platelet Volume 10.2 7.6 - 12.9 fL [facility] NRBC% auto 0.0 % [facility] NRBC Absolute 0.000 0.000 - 0.000 x10(3)/[facility] Blood 06/08/2022 4:14 PM EST 06/08/2022 4:32 PM EST Narrative Resulting Agency Comment Spec In Lab Destiney Blanco DO HEMATOLOGY ORDERABLE S [facility] [place] [address] * Hepatitis B Surface Antibody (06/08/2022 4:14 PM EST) Hepatitis B Surface Antibody, Quantitative <3.5 IU/L [facility] Comment: HepB Surface Ab Quant: Unvaccinated: < 8.5 IU/L Vaccinated: > 11.5 IU/L Hepatitis B Surface Antibody Negative [facility] Comment: Patient is presumed to be not vaccinated or immune to HBV infection. Expected Results: Vaccinated: Positive Unvaccinated: Negative Blood 06/08/2022 4:14 PM EST 06/08/2022 4:32 PM EST Narrative Resulting Agency Comment Spec In Lab Shay Blanco MD CHEMISTRY ORDERABLES Performing Organization Address City/[facility] Co de Phone Number [facility] [place] [address] * Hepatitis B Surface Antigen (06/08/2022 4:14 PM EST) Hepatitis B Surface Antigen Negative Negative [facility] Blood 06/08/2022 4:14 PM EST 06/08/2022 4:32 PM EST Narrative Resulting Agency Comment Spec In Lab Shay Blanco MD CHEMISTRY ORDERABLES Performing Organization Address [facility] Co de Phone Number [facility] [place] [address] * Hepatitis B Core Antibody, Total (06/08/2022 4:14 PM EST) Hepatitis B Core Antibody Negative Negative [facility] Blood 06/08/2022 4:14 PM EST 06/08/2022 4:32 PM EST Narrative Resulting Agency Comment Spec In Lab Shay Blnaco MD CHEMISTRY ORDERABLES Performing Organization Address [facility] Co de Phone Number [facility] [place] [address] * Hepatitis C Antibody (06/08/2022 4:14 PM EST) Hepatitis C Antibody Negative Negative [facility] Blood 06/08/2022 4:14 PM EST 06/08/2022 4:32 PM EST Narrative Resulting Agency Comment Spec In Lab Shay Blanco MD CHEMISTRY ORDERABLES Performing Organization Address City/[facility]/ZIP Co de Phone Number [facility] [place] [address] * C4 Complement (06/08/2022 4:14 PM EST) Complement C4 10 10 - 40 mg/dL [facility] Blood 06/08/2022 4:14 PM EST 06/08/2022 4:32 PM EST Narrative Resulting Agency Comment Spec In Lab Shay Blanco MD CHEMISTRY ORDERABLES Performing Organization Address [facility] Co de Phone Number [facility] [place] [address] * (ABNORMAL) C3 Complement (06/08/2022 4:14 PM EST) Complement C3 80(L) 90 - 180 mg/dL [facility] Blood 06/08/2022 4:14 PM EST 06/08/2022 4:32 PM EST Narrative Resulting Agency Comment Spec In Lab Shay Blanco MD CHEMISTRY ORDERABLES Performing Organization Address [facility] de Phone Number [facility] [place] [address] * (ABNORMAL) Comprehensive metabolic panel (non-fasting) (06/08/2022 4:14 PM EST) Glucose 96 65 - 199 mg/dL [facility] Comment:Diabetes: >=200 mg/d L plus symptoms Blood Urea Nitrogen 13 8 - 18 mg/dL [facility] Creatinine 0.68(L) 0.70 - 1.20 mg/dL [facility] Sodium 139 135 - 145 mmol/L [facility] Potassium 4.4 3.5 - 5.0 mmol/L [facility] Comment: Please note: ??Patients with WBC >100,000 may have falsely elevated Potassium levels. ??For accurate Potassium quantification in these patients send serum separator tube (gold top) for subsequent determinations. ??Contact the Clinical Chemistry Laboratory if there are any questions. Chloride 103 98 - 107 mmol/L [facility] Carbon Dioxide 26 22 - 31 mmol/L [facility] Anion Gap 10 5 - 15 mmol/L [facility] Calcium 9.3 8.5 - 10.5 mg/dL [facility] Protein, Total 7.3 6.1 - 8.0 g/dL [facility] Albumin 4.8 3.2 - 5.2 g/dL [facility] Aspartate Aminotransferase 15 0 - 30 unit/L [facility] Alanine Aminotransferase 14 0 - 30 unit/L [facility] Alkaline Phosphatase 42 35 - 105 unit/L [facility] Bilirubin, Total <0.2(L) 0.2 - 1.3 mg/dL [facility] Est Glomerular Filtration Rate 108 >=60 mL/min/1. 73 m?? [facility] Comment: This patient's estimated GFR [...] and symptoms in addition to eGFR. Blood 06/08/2022 4:14 PM EST 06/08/2022 4:32 PM EST Narrative Resulting Agency Comment Spec In Lab Shay Blanco MD CHEMISTRY ORDERABLES Performing Organization Address City/[facility] Co de Phone Number [facility] [place] [address] * TSH (06/08/2022 4:14 PM EST) Thyroid Stimulating Hormone 1.01 0.27 - 4.20 mcIU/mL [facility] Comment: Reference Interval (mcIU/mL): Females: ??First Trimester: 0.23-3.88 ??Second Trimester: 0.22-3.90 ??Third Trimester: 0.44-4.66 Blood 06/08/2022 4:14 PM EST 06/08/2022 4:32 PM EST Narrative Resulting Agency Comment Spec In Lab Shay Blanco MD CHEMISTRY ORDERABLES Performing Organization Address City/[facility] Co de Phone Number [facility] [place] [address] documented in this encounter Visit Diagnoses Diagnosis Undifferentiated connective tissue disease Unspecified diffuse connective tissue disease CREST (calcinosis, Raynaud's phenomenon, esophageal dysfunction, sclerodactyly, telangiectasia) Systemic sclerosis Other forms of systemic lupus erythematosus, unspecified organ involvement status Hypothyroidism, unspecified type Raynaud's phenomenon without gangrene Chronic right shoulder pain Pain in joint, shoulder region High risk medication use Encounter for long-term (current) use of other medications Hematochezia Blood in stool documented in this encounter Care Teams Wedding Day Coordinator Relationship Specialty Start Date End Date Geraldo Gracia DNP [address] [place] [address] PCP - General Family Medicine 07/17/21 09/30/22 documented as of this encounter
--- OUTSIDE RECORDS SUMMARY | 2024-06-23 18:20 | XMS_ITS | Encounter Summary ---
[place] [address] Care Team Providers Care Lease Buyer Name Role Phone Geraldo Gracia [facility] Primary Care Provider Reason for Visit * Reason Onset Date Comments Prior Authorization 01/08/2022 Encounter Details Date Type Department Care Team (Late st Contact Info) Description 01/08/2022 Telephone [place] [phone] Kristie Valente CCMA Prior Authorization Social History Tobacco Use Types [...] encounter Miscellaneous Notes * Telephone Encounter - Kristie Valente LNA - 01/08/2022 8:10 AM EDT Medication Prior Authorization 4L Gastroenterology / [place] [address] Subscriber Insurance: [employer] BIN: [id number] PCN: [id number] Group: [id number] Phone: Fax: Physician: Herlinda Hillman Return Pharmacy: [facility] Fax: Medication Requested: Linzess Strength: 72mcg Frequency: Daily Disp.: 30 Refills: 3 Currently taking: Diagnosis for this medication: Slow Transit Constipation ICD-10 code: K59.01 Prior medications trialed in this patient: Miralax, Senna, metamucil, Xlax, Colace, Dulcolax, Suppositores Medication: Outcome/Adverse Reactions: Treatment Failure Decision: Approved. Tracking number/Case number/Reference number: [id number] Effective date: 01/08/2022 to 01/08/2023 Start: End: documented in this encounter Plan of Treatment Upcoming Encounters Date Type Department Care Team (Latest Contact Info) Description 06/30/2024 9:45 AM EST Hospital Encounter [place] [address] Flor Velasco MD [facility] [place] [address] 06/30/2024 9:45 AM EST - 06/30/2024 10:45 AM EST Surgery [place] [address] Flor Velasco MD [facility] [place] [address] COLONOSCOPY, DIAGNOSTIC (WRVU 3.26) 07/27/2024 8:00 AM EST TH Visit (TeleHealth) [place] [address] Unruly Ramirez MD [facility] [place] [address] 08/03/2024 3:00 PM EST Office Visit Neurology at [facility] [address] [place] [address] Melvin Ramírez MD [facility] [place] [address] [place] [address] 08/25/2024 1:45 PM EDT Office [place] [address] Keven Church MD [facility] [place] [address] Scheduled Procedures Name Priority Associated Diagnoses Date/Ti me COLONOSCOPY, DIAGNOSTIC (WRV U 3.26) Hematochezia 06/30/2024 9:45 AM EST documented as of this encounter Visit Diagnoses Not on filedocumented in this encounter Care Teams Lease Buyer Relationship Specialty Start Date End Date Geraldo Gracia DNP [facility] [address] [place] [address] PCP - General Family Medicine 07/17/21 09/30/22 documented as of this encounter
--- OUTSIDE RECORDS SUMMARY | 2024-06-23 18:21 | XMS_ITS | Encounter Summary ---
[place] [address] Care Team Providers Care Aligning Inspector Name Role Phone Geraldo Gracia DNP Primary Care Provider Reason for Visit * Reason Onset Date Comments Medication Refill 11/13/2021 Encounter Details Date Type Department Care Team (Late st Contact Info) Description 11/13/2021 Refill Neurology at [address] [phone] Elizabeth Banerjee APRN [facility] [place] [address] Social History Tobacco Use Types Packs/Day Years [...] 9:45 AM EST Hospital En[place] [address] Flor Velasco MD [facility] [place] [address] 06/30/2024 9:45 AM EST - 06/30/2024 10:45 AM EST Surgery Gastroenterology at [place] [phone] Flor Velasco MD [facility] [place] [address] COLONOSCOPY, DIAGNOSTIC (WRVU 3.26) 07/27/2024 8:00 AM EST TH Visit (TeleHealth) [place] [address] Unruly Ramirez MD [facility] [place] [address] 08/03/2024 3:00 PM EST Office Visit Neurology at [address] [phone] Melvin Ramírez MD [facility] [address] [place] [address] 08/25/2024 1:45 PM EDT Office Visit Rheumatology at [place] [phone] Keven Church MD [facility] [address] Scheduled Procedures Name Priority Associated Diagnoses Date/Ti me COLONOSCOPY, DIAGNOSTIC (WRV U 3.26) Hematochezia 06/30/2024 9:45 AM EST documented as of this encounter Visit Diagnoses Not on filedocumented in this encounter Care Teams Aligning Inspector Relationship Specialty Start Date End Date Geraldo Gracia DNP [facility] [address] [place] [address] PCP - General Family Medicine 07/17/21 09/30/22 documented as of this encounter
--- OUTSIDE RECORDS SUMMARY | 2024-06-23 18:21 | XMS_ITS | Encounter Summary ---
Author Organization [facility] [place] [address] Care Team Providers Care Staff Scientist Name Role Phone None Primary Care Provider Unavailabl e Encounter Details Date Type Department Care Team (Late st Contact Info) Description 03/28/2021 Orders [place] [phone] Arnaldo Mccabe, Undifferentiated connective tissue disease Social History Tobacco [...] 9:45 AM EST Hospital Encounter [place] [phone] Flor Velasco MD [facility] [place] [address] 06/30/2024 9:45 AM EST - 06/30/2024 10:45 AM EST [place] [phone] Flor Velasco MD [facility] [place] [address] COLONOSCOPY, DIAGNOSTIC (WRVU 3.26) 07/27/2024 8:00 AM EST TH Visit (TeleHealth) [place] [address] Unruly Ramirez MD [facility] [place] [address] 08/03/2024 3:00 PM EST Office Visit Neurology at [address] [phone] Melvin Ramírez MD [facility] [address] 08/25/2024 1:45 PM EDT Office [place] [address] Keven Church MD [facility] [place] [address] Scheduled Procedures Name Priority Associated Diagnoses Date/Ti me COLONOSCOPY, DIAGNOSTIC (WRV U 3.26) Hematochezia 06/30/2024 9:45 AM EST documented as of this encounter Results * (ABNORMAL) C4 Complement (04/28/2021 11:38 AM EST) Complement C4 8(L) 10 - 40 mg/dL [facility] Blood 04/28/2021 11:3 8 AM EST 04/28/2021 11:53 AM EST Narrative Resulting Agency Comment Spec In Lab Keith Bryant II, DO CHEMISTRY ORDERA BLES [facility] [place] [address] * (ABNORMAL) C3 Complement (04/28/2021 11:38 AM EST) Complement C3 80(L) 90 - 180 mg/dL [facility] Blood 04/28/2021 11:3 8 AM EST 04/28/2021 11:53 AM EST Narrative Resulting Agency Comment Spec In Lab Keith Bryant II, DO CHEMISTRY ORDERA BLES [facility] [place] [address] documented in this encounter Visit Diagnoses Diagnosis Undifferentiated connective tissue disease Unspecified diffuse connective tissue disease Hematochezia Blood in stool documented in this encounter Care Teams Staff Scientist Relationship Specialty Start Date End Date None None PCP - General 01/22/21 07/16/21 documented as of this encounter
--- OUTSIDE RECORDS SUMMARY | 2024-06-23 18:21 | XMS_ITS | Encounter Summary ---
Author Organization [facility] [place] [address] Care Team Providers Care Heel Edge Inker Machine Name Role Phone Geraldo Gracia [facility] Primary Care Provider [phone] Reason for Visit * Reason Comments Medication Refill Encounter Details Date Type Department Care Team (Late st Contact Info) Description 10/18/2021 [place] [phone] Miguel Angel Cooley MD [facility] [place] [address] Social History Tobacco Use Types Packs/Day Years [...] 9:45 AM EST Hospital En[place] [phone] Flor Velasco MD [facility] [place] [address] 06/30/2024 9:45 AM EST - 06/30/2024 10:45 AM EST Surgery Gastroenterology at [place] [phone] Flor Velasco MD [facility] [place] [address] COLONOSCOPY, DIAGNOSTIC (WRVU 3.26) 07/27/2024 8:00 AM EST TH Visit (TeleHealth) [place] [address] Unruly Ramirez MD [facility] DR [place] [address] 08/03/2024 3:00 PM EST Office Visit Neurology at [address] [phone] Melvin Ramírez MD [facility] [place] [address] 08/25/2024 1:45 PM EDT Office [place] [phone] Keven Church MD [facility] [place] [address] Scheduled Procedures Name Priority Associated Diagnoses Date/Ti me COLONOSCOPY, DIAGNOSTIC (WRV U 3.26) Hematochezia 06/30/2024 9:45 AM EST documented as of this encounter Visit Diagnoses Not on filedocumented in this encounter Care Teams Heel Edge Inker Machine Relationship Specialty Start Date End Date Geraldo Gracia DNP [address] [place] [address] PCP - General Family Medicine 07/17/21 09/30/22 documented as of this encounter
--- OUTSIDE RECORDS SUMMARY | 2024-06-23 18:21 | XMS_ITS | Encounter Summary ---
[place] [address] Care Team Providers Care Slinger Sequins Name Role Phone Geraldo Gracia [facility] Primary Care Provider [phone] Reason for Visit * Reason Comments Prior Authorization Emgality 120mg/mL SO AJ Encounter Details Date Type Department Care Team (Late st Contact Info) Description 09/26/2021 Specialty [place] [phone] Bernice Arvizu, DIGITAL EXPERIENCE MANAGER Social History Tobacco Use Types Packs/Day [...] of this encounter Progress Notes * Bernice Arvizu - 09/26/2021 11:39 AM EDT [facility], Medication Prior Authorization Submission Patient: Karolina Griffitherson Brendon Patient : 1975 Patient Address: [address] [facility] [address] Phone: [phone] (home) Medication Name: EMGALITY PEN 120 MG/ML SUBCUTANEOUS PEN INJECTOR Medication ID: [id number] Subscriber Insurance: Unable to find Subscriber Insurance Comment: [facility] (IRX) Fax: Physician: CHARLIE AWAN Physician Comment: Sent Via: [facility] Brasher: Brasher: [id number] Ref/Case/PA#: NA Medication Strength Frequency Requested: Emgality/120mg/28 Qty/Day Supply: 06/27 New Start: Renewal Diagnosis & ICD-10 Code: Chronic Migraines Patient Notified: No Submission Notes: RX#[id number] PA submitted via [facility]. Documenting in [facility]H. Brasher: [id number] Bernice Arvizu 09/26/21 11:41 AM * Willy Sumner - 09/26/2021 11:39 AM EDT [facility], Prior Authorization Approval Medication Name: EMGALITY PEN 120 MG/ML SUBCUTANEOUS PEN INJECTOR Medication ID: [id number] Approval Dates: 09/26/2021 to 09/26/2022 Insurance requirements/notes: None Other Notes: None Case/Reference #: [id number] Approval notification Received via: [facility] Copay: $60.00 Copay assistance: Copay Card Copay Notes: [employer] copay card [id number] Insurance mandated Pharmacy: Fillable at [facility]: Yes Pharmacy staff will be reaching out to the patient to inform them of their [facility]. If applicable, a pharmacist will speak with the patient to offer our specialty pharmacy services and to arrange delivery of their medication. Willy Sumner 09/29/21 9:38 AM * Burak Willy Bassett - 09/26/2021 11:39 AM EDT [facility], Copay Assistance Medication Name: EMGALITY PEN 120 MG/ML SUBCUTANEOUS PEN INJECTOR Medication ID: Copay Assistance/Copay Card: Copay Card Name of Assistance Program: [facility]umn Copay Card Amount Provided by Program: $4900.00 per calendar year New Copayment: $0.00 Willy Sumner 09/29/21 9:40 AM documented in this encounter Plan of Treatment Upcoming Encounters Date Type Department Care Team (Latest Contact Info) Description 06/30/2024 9:45 AM EST Hospital Encounter [place] [address] Flor Velasco MD [facility] [place] [address] 06/30/2024 9:45 AM EST - 06/30/2024 10:45 AM EST [place] [phone] Flor Velasco MD [facility] [place] [address] COLONOSCOPY, DIAGNOSTIC (WRVU 3.26) 07/27/2024 8:00 AM EST TH Visit (TeleHealth) [place] [address] Unruly Ramirez MD [facility] [place] [address] 08/03/2024 3:00 PM EST Office Visit Neurology at [address] [phone] Melvin Ramírez MD [facility] [place] [address] 08/25/2024 1:45 PM EDT Office [place] [address] Keven Church MD [facility] [place] [address] Scheduled Procedures Name Priority Associated Diagnoses Date/Ti me COLONOSCOPY, DIAGNOSTIC (WRV U 3.26) Hematochezia 06/30/2024 9:45 AM EST documented as of this encounter Visit Diagnoses Not on filedocumented in this encounter Care Teams Slinger Sequins Relationship Specialty Start Date End Date Geraldo Gracia DNP Elizabeth [address] [place] [address] PCP - General Family Medicine 07/17/21 09/30/22 documented as of this encounter
--- OUTSIDE RECORDS SUMMARY | 2024-06-23 18:21 | XMS_ITS | Encounter Summary ---
[place] [address] Care Team Providers Care Weigh Tank Operator Name Role Phone Geraldo Gracia [facility] Primary Care Provider Encounter Details Date Type Department Care Team (Latest Contact Info) Description 07/17/2021 2:00 PM EST [place] [address] Arnaldo Mccabe, Undifferentiated connective tissue disease; Arthralgia of both hands; Hypocomplementemia; ARNULFO positive; Acute pain of right shoulder; Raynaud's phenomenon without gangrene Social History Tobacco Use Types Packs/Day Years [...] Sign Reading Time Taken Comments Blood Pressure 113/57 07/17/2021 1:46 PM EST Pulse 97 07/17/2021 1:46 PM EST Temperature 37.2 ??C (98.9 ??F) 07/17/2021 1 :46 PM EST Respiratory Rate - - Oxygen Saturation 100% 07/17/2021 1:4 6 PM EST Inhaled Oxygen Concentration - - Weight 49.8 kg (109 lb 12.8 oz) 07/17/2021 1:46 PM EST Height 157.5 cm (5' 2) 07/17/2021 1:46 PM EST patient reported Body Mass Index 20.08 07/17/2021 1:46 PM EST documented in this encounter Progress Notes * Arnaldo Mccabe DO - 07/17/2021 2:00 PM EST Rheumatology Outpatient Follow Up Note PCP: AVA Justin Maurice Olivas is a 46 y.o. female PMH celiac disease, hysterectomy 2/2 abnormal uterine bleeding, migraines, allergies, subclinical hypothyroidism 2/2 alberto's thyroiditis, chronic pericardial effusion in 2018, stage I liver fibrosis possibly 2/2 autoimmune hepatitis, costochondritis, pectus excavatum, intersitial cystitis who we are seeing for the continuing management of UCTD vs SLE. 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 #Anti-smooth muscle ab positivity, stage 1 liver fibrosis, ?autoimmune hepatitis #Subclinical hypothyroidism 2/2 Alberto's thyroiditis - fatigue, arthralgias??(mostly in left knee, ankle, right wrist, and [...] given cream for improvement - ARNULFO at [facility] 1:320 speckled and cytoplasmic, COLBY negative, dsDNA negative, anti-mitochondrial negative, +anti-smooth muscle 1:160, C3 mildly low 86-88, normal C4, TPO 982, TTG negative, APS ab negative - 09/2020 episode of Raynaud's, initiated HCQ - 12/2020 worsening photosensitivity with fatigue, arthralgias, rash from sun - 07/2021 nail caps few dilated loops right hand Interval History: - presents as urgent add on for worsening symptoms - worsening joint pain in hands, right shoulder in particular - right hand fingers are red and swollen, hard to bend fingers, stiff in the AM but she can make a fist - reports 1-2 episodes of Raynaud's over the winter - right shoulder onset close to 1.5-2 weeks ago, does not recall any trauma - pain is posterior right shoulder, unable to lift her arm and notices pain when bringing her arm down - has tried to rest and not move it - takes naproxen only has needed, maybe 1-2x/week - continues to have nose bleeds that are significant, feels it going down her throat, also had episode where it was coming out of her right eye - recurrent painful ulcers on inside of her lip, resolve on their own - she has gained close to 10 lbs in the past week, feels bloated ROS (positives in bold): Gen: no fevers, no chills, no night sweats Pulm: no SOB CV: no CP Abd: no abd pain, no nausea, no vomiting, no diarrhea MSK: see HPI No family history of RA, SLE, OA, Sjogren's, Scleroderma, or gout Meds and Allergies: Reviewed in eDH Physical exam: BP 113/57 (BP Location (NBP): Left arm, Patient Position: Sitting, BP Cuff Sizes: Adult (25-34 cm)) Pulse 97 Temp 37.2 ??C (98.9 ??F) Ht 157.5 cm (5' 2) Comment: patient reported Wt 49.8 kg (109 lb 12.8 oz) SpO2 100% BMI 20.08 kg/m?? Gen: well appearing, alert and oriented x 3, nad HEENT: NCAT, EOMI, moist mucous membranes, normal sclerae Heart: regular rate, no murmurs, rubs or gallops Lungs: clear to auscultation b/l Skin: no rheumatologic rashes Nails: no nail pitting. periungal erythema with some dilated loops on right hand Joints: Shoulders: left ROM, non-tender to palpation. Right pain slightly posterior to the angle of acromion (posterior) with palpation. Positive empty can test, negative jones-darcie/speeds/yergason's/lift off test. Right abduction limited 60 degrees actively but FROM on passive abduction. Pain with adduction. Internal/external rotations normal. Elbows:FROM Wrists: FROM, no swelling, non-tender Hands: No synovitis. B/l digits tips blueish discoloration with erythema more distally. Cold. +Heberden nodes b/l. Right hand digits soft tissue swelling. Full claw and fist Knees: FROM, no effusion, no tenderness Procedure note: Informed consent was obtained after a discussion of the nature of the procedure, its risks, benefits and possible alternatives. Immediately prior to the start of the procedure a time out was taken: - The patient's identity was confirmed using two identifiers - The intended procedure, patient positioning and availability of all required equipment was also confirmed. The right subacromial space was prepped in sterile fashion. Ethyl chloride was used as local anaesthetic. The joint was entered and 40 mg of methylprednisolone and 2 ml of lidocaine were injected. The patient tolerated the procedure well with no immediate complications. Patient was advised to rest the joint for 5 days and watch for signs of infection including fever. Labs/Studies: Reviewed. Assessment/Plan: Karolina Olivas is a 46 y.o. female PMH celiac disease, hysterectomy 2/2 abnormal uterine bleeding, migraines, allergies, subclinical hypothyroidism 2/2 alberto's thyroiditis, chronic pericardial effusion in 2018, stage I liver fibrosis possibly 2/2 autoimmune hepatitis, costochondritis, pectus excavatum, intersitial cystitis who we are seeing for the continuing management of UCTD vs SLE. She presents today for worsening arthralgias in addition to other nonspecific symptoms. Her joint pain in her hands are interesting, particularly in her right hand. Digits look more puffythan the left, however there is no synovitis on her exam today. Her digits are also very cold, initially having blueish discoloration at the tips and later erythematous. Although she felt warm and reports infrequent Raynaud's, I question if she is having worsening Raynaud's than she thinks. I wouldalso suspect that this could be worsening her joint pain. She was agreeable to a small dose of amlodipine to assist with blood flow and I'm hoping this can be tolerated. Recommended to keep core warmand to use handwarmers when able. Nailbed caps look a little dilated today, which is different thanprevious evaluation about one year before. Her hands are stiff in the AM but she can make a fist and reports worsening pain with activity. Hand xrays recently showed OA. I did consider MTX for arthralgias as a trial however 1. No synovitis and 2. With her history of stage 1 liver fibrosis this would not be ideal. I will touch base with GI to get their input. The other option is azathioprine, she will need TPMT enzyme assay for this. Her right shoulder pain could most certainly be tendonitis based on her exam. However I'm worried if she has or will develop frozen shoulder given the lack of mobility. Steroid injection was completed into the subacromial bursa but ultimately I think physical therapy will help her. She will let me know where she wants to have it done. I'm unsure why she is having such significant nose bleeds. I've asked her to see ENT but has not made the appointment yet. She reports oral and nasal ulcers, but to have such significant bleeding is unusual. Reported no oral ulcers but when they occur it is on the inside of her lip and painful. I've asked her to get them swabbed for HSV the next time it happens and if negative we will try topicalsteroid creams. PLAN: - amlodipine 2.5mg - steroid injection to subacromial bursa - PT consult - keeping core body temperature warm, use of hand warmers - PRN NSAIDs - HCQ 200mg qday Follow up 2-3 months Patient was discussed with Dr. Mccord. Arnaldo Mccabe DO Rheumatology Fellow Pager: [phone] * Leeann Mccord MD - 07/17/2021 2:[address] Mccabe provided the care for this patient. WE discussed the plan and I have reviewed her note. documented in this encounter Plan of Treatment Upcoming Encounters Date Type Department Care Team (Latest Contact Info) Description 06/30/2024 9:45 AM EST Hospital En[place] [address] Flor Velasco MD [facility] [place] [address] 06/30/2024 9:45 AM EST - 06/30/2024 10:45 AM EST Surgery Gastroenterology at [place] [phone] Flor Velasco MD [facility] [place] [address] COLONOSCOPY, DIAGNOSTIC (WRVU 3.26) 07/27/2024 8:00 AM EST TH Visit (TeleHealth) Gastroenterology at [place] [phone] Unruly Ramirez MD [facility] [place] [address] 08/03/2024 3:00 PM EST Office Visit Neurology at [address] [phone] Melvin Ramírez MD [facility] [place] [address] 08/25/2024 1:45 PM EDT Office [place] [phone] Keven Church MD [facility] [place] [address] Scheduled Procedures Name Priority Associated Diagnoses Date/Ti me COLONOSCOPY, DIAGNOSTIC (WRV U 3.26) Hematochezia 06/30/2024 9:45 AM EST documented as of this encounter Results * (ABNORMAL) Comprehensive metabolic panel (non-fasting) (07/17/2021 3:26 PM EST) Glucose 93 65 - 199 mg/dL [facility] Comment:Diabetes: >=200 mg/d L plus symptoms Blood Urea Nitrogen 14 8 - 18 mg/dL [facility] Creatinine 0.72 0.70 - 1.20 mg/dL [facility] Sodium 137 135 - 145 mmol/L [facility] Potassium 4.0 3.5 - 5.0 mmol/L [facility] Comment: Please note: ??Patients with WBC >100,000 may have falsely elevated Potassium levels. ??For accurate Potassium quantification in these patients send serum separator tube (gold top) for subsequent determinations. ??Contact the Clinical Chemistry Laboratory if there are any questions. Chloride 101 98 - 107 mmol/L [facility] Carbon Dioxide 25 22 - 31 mmol/L [facility] Anion Gap 11 5 - 15 mmol/L [facility] Calcium 9.1 8.5 - 10.5 mg/dL [facility] Protein, Total 7.0 6.1 - 8.0 g/dL [facility] Albumin 4.6 3.2 - 5.2 g/dL [facility] Aspartate Aminotransferase 20 0 - 30 unit/L [facility] Alanine Aminotransferase 17 0 - 30 unit/L [facility] Alkaline Phosphatase 43 35 - 105 unit/L [facility] Bilirubin, Total <0.2(L) 0.2 - 1.3 mg/dL [facility] Est Glomerular Filtration Rate 100 >=60 mL/min/1. 73 m?? [facility] Comment: This patient? s estimated glomerular filtration rate (eGFR) is between 100 mL/min/1.73 m2 (patients with less muscle mass) and 116 mL/min/1.73 m2 (patients with more muscle mass) as determined by the CKD-EPI equation. Assessment of eGFR is not appropriate when creatinine concentrations are rapidly changing. For clinical decisions where creatinine clearance will affect therapy, a 24-hour urine creatinine clearance may be advised. Assignment of CKD stage 1 - 5 for patients with an eGFR near the transition point between stages may be based on clinical assessment of muscle mass and symptoms in addition to eGFR. Blood 07/17/2021 3:26 PM EST 07/17/2021 3:35 PM EST Narrative Resulting Agency Comment Spec In Lab Leeann Mccord MD CHEMISTRY ORDERABLES Performing Organization Address [facility]/ZIP Co de Phone Number [facility] [place] [address] * CRP, acute inflammation (07/17/2021 3:26 PM EST) C-Reactive Protein <3.0 <=4.9 mg/L [facility] Blood 07/17/2021 3:26 PM EST 07/17/2021 3:35 PM EST Narrative Resulting Agency Comment Spec In Lab Leeann Mccord MD CHEMISTRY ORDERABLES Performing Organization Address [facility] Co de Phone Number [facility] [place] [address] * Sedimentation rate (07/17/2021 3:26 PM EST) Pathologist [facility] Sedimentation Rate Automated 3 2 - 37 mm/hr [facility] Comment: Effective May 10, 2019 new capillary photometric technology has resulted in a change in reference ranges. It is recommended that each ESR result be reviewed with its own age appropriate reference range. Blood 07/17/2021 3:26 PM EST 07/17/2021 3:35 PM EST Narrative Resulting Agency Comment Spec In Lab Leeann Mccord MD HEMATOLOGY ORDERABLE S Performing Organization Address [facility] Co de Phone Number [facility] [place] [address] * Complement, Total (07/17/2021 3:26 PM EST) Complement, Total 45 42 - 95 unit/mL [facility] Blood 07/17/2021 3:26 PM EST 07/17/2021 3:35 PM EST Narrative Resulting Agency Comment Spec In Lab Leeann Mccord MD CHEMISTRY ORDERABLES Performing Organization Address [facility] Co de Phone Number [facility] [place] [address] * C4 Complement (07/17/2021 3:26 PM EST) Complement C4 11 10 - 40 mg/dL [facility] Blood 07/17/2021 3:26 PM EST 07/17/2021 3:35 PM EST Narrative Resulting Agency Comment Spec In Lab Leeann Mccord MD CHEMISTRY ORDERABLES Performing Organization Address [facility] Co de Phone Number [facility] [place] [address] * C3 Complement (07/17/2021 3:26 PM EST) Complement C3 90 90 - 180 mg/dL [facility] Blood 07/17/2021 3:26 PM EST 07/17/2021 3:35 PM EST Narrative Resulting Agency Comment Spec In Lab Leeann Mccord MD CHEMISTRY ORDERABLES Performing Organization Address [facility] Co de Phone Number [facility] [place] [address] * (ABNORMAL) Protein/Creatinine Ratio, urine (07/17/2021 3:22 PM EST) Creatinine, Urine 142 mg/dL [facility] Protein, Urine 14(H) 0 - 12 mg/dL [facility] Protein / Creatinine Ratio, Urine <0.[address] [facility] Urine 07/17/2021 3:22 PM EST 07/17/2021 3:33 PM EST Narrative Resulting Agency Comment Spec In Lab Leeann Mccord MD URINE ORDERABLES Performing Organization Address City/[facility]/ZIP Co de Phone Number [facility] [place] [address] * Urinalysis with reflex Culture (07/17/2021 3:22 PM EST) Glucose, Urine Dipstick Negative Negative mg/dL [facility] Protein, Urine Dipstick Negative Negative mg/dL [facility] Bilirubin, Urine Dipstick Negative Negative mg/dL [facility] Comment: Clinical correlation required for positive Urine Bilirubin results as false positive may occur with some drugs and drug related products. If a false positive is suspected a serum total bilirubin should be considered if clinically indicated. Urobilinogen, Urine Dipstick Normal Normal mg/dL [facility] pH, Urn (dipstick) 5.5 5.0 - 8.0 [facility] Blood, Urine Dipstick Negative Negative mg/dL [facility] Ketone, Urine Dipstick Negative Negative mg/dL [facility] Nitrite, Urine Dipstick Negative Negative [facility] Leukocytes, Urine Dipstick Negative Negative [facility] Appearance, Urine Dipstick Clear Clear [facility] Specific [place] Urine Automated 1.013 1.005 - 1.030 [facility] Color, Urine Dipstick Yellow Yellow [facility] Reflex to Culture No [facility] Urine NS 07/17/2021 3:22 PM EST 07/17/2021 3:33 PM EST Narrative Resulting Agency Comment Spec In Lab Leeann Mccord MD URINE ORDERABLES Performing Organization Address [facility] Co de Phone Number [facility] [place] [address] documented in this encounter Visit Diagnoses Diagnosis Undifferentiated connective tissue disease Unspecified diffuse connective tissue disease Arthralgia of both hands Hypocomplementemia Other specified disorders involving the immune mechanism ARNULFO positive Other and unspecified nonspecific immunological findings Acute pain of right shoulder Raynaud's phenomenon without gangrene Hematochezia Blood in stool documented in this encounter Care Teams Weigh Tank Operator Relationship Specialty Start Date End Date Geraldo Gracia DNP [address] [place] [address] PCP - General Family Medicine 07/17/21 09/30/22 documented as of this encounter
--- OUTSIDE RECORDS SUMMARY | 2024-06-23 18:21 | XMS_ITS | Encounter Summary ---
Author Organization [facility] [place] [address] Care Team Providers Care Centerless Grinder Tender Name Role Phone Geraldo Gracia [facility] Primary Care Provider [phone] Reason for Visit * Reason Onset Date Comments Medication Refill 10/18/2021 Encounter Details Date Type Department Care Team (Late st Contact Info) Description 10/18/2021 [place] [address] Miguel Angel Cooley MD [facility] [place] [address] Social History Tobacco Use Types Packs/Day Years [...] encounter Miscellaneous Notes * Telephone Encounter - Ten Nam RN - 10/21/2021 12:44 PM EDT [facility] message to patient. * Telephone Encounter - Miguel Angel Cooley MD - 10/21/2021 12:26 PM EDT Ten The plan when I last saw her was to have her PCP monitor/prescribe levothyroxine care home so the renewal request should be sent to Geraldo Hughes. I can sign off on a short supply if she needs it thanks documented in this encounter Plan of Treatment Upcoming Encounters Date Type Department Care Team (Latest Contact Info) Description 06/30/2024 9:45 AM EST Hospital Encounter [place] [address] Flor Velasco MD [facility] [place] [address] 06/30/2024 9:45 AM EST - 06/30/2024 10:45 AM EST [place] [address] Flor Velasco MD [facility] [place] [address] COLONOSCOPY, DIAGNOSTIC (WRVU 3.26) 07/27/2024 8:00 AM EST TH Visit (TeleHealth) [place] [address] Unruly Ramirez MD [facility] [place] [address] 08/03/2024 3:00 PM EST Office Visit Neurology at [place] [address] [place] [address] Melvin Ramírez MD [facility] [place] [address] 08/25/2024 1:45 PM EDT Office [place] [address] Keven Church MD [facility] [place] [address] Scheduled Procedures Name Priority Associated Diagnoses Date/Ti me COLONOSCOPY, DIAGNOSTIC (WRV U 3.26) Hematochezia 06/30/2024 9:45 AM EST documented as of this encounter Visit Diagnoses Not on filedocumented in this encounter Care Teams Centerless Grinder Tender Relationship Specialty Start Date End Date Geraldo Gracia DNP [address] [place] [address] PCP - General Family Medicine 07/17/21 09/30/22 documented as of this encounter
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
--- OUTSIDE RECORDS SUMMARY | 2024-06-23 18:21 | XMS_ITS | Encounter Summary ---
Author Organization [facility] [place] [address] Care Team Providers Care Commonwealth Attorney Name Role Phone None Primary Care Provider Unavailabl e Encounter Details Date Type Department Care Team (Latest Contact Info) Description 04/28/2021 11:00 AM EST Laboratory Appointment Lab [address], [place] [phone] Undifferentiated connective tissue disease; Constipation, unspecified constipation type; Diarrhea, unspecified type; Elevated liver enzymes Social History Tobacco Use Types Packs/Day Years [...] 9:45 AM EST Hospital Encounter [place] [phone] Flor Velasco MD [facility] [place] [address] 06/30/2024 9:45 AM EST - 06/30/2024 10:45 AM EST Surgery Gastroenterology at [place] [phone] Flor Velasco MD [facility] [place] [address] COLONOSCOPY, DIAGNOSTIC (WRVU 3.26) 07/27/2024 8:00 AM EST TH Visit (TeleHealth) Gastroenterology at [place] [phone] Unruly Ramirez MD [facility] [place] [address] 08/03/2024 3:00 PM EST Office Visit Neurology at [address] [phone] Melvin Ramírez MD [facility] DR [place] [address] 08/25/2024 1:45 PM EDT Office Visit Rheumatology at [place] [phone] Keven Church MD [facility] [place] [address] Scheduled Procedures Name Priority Associated Diagnoses Date/Ti me COLONOSCOPY, DIAGNOSTIC (WRV U 3.26) Hematochezia 06/30/2024 9:45 AM EST documented as of this encounter Procedures Procedure Name Priority Date/Time Associated Diagnosis Comments BILIRUBIN, DIRECT Routine 04/28/2021 11: 38 AM EST HEMOGRAM Routine 04/28/2021 11:38 AM EST Undifferentiated connective tissue disease DIFFERENTIAL, AUTOMATED Routine 04/28/20 11:38 AM EST Undifferentiated connective tissue disease HC TISSUE TRANSGLUTAMINASE AB Routine 04/28/2021 11:38 AM EST Diarrhea, unspecified type HC ESR-SEDIMENTATION RATE, BLOOD Routine 04/28/2021 11:38 AM EST Undifferentiated connective tissue disease HC CBC,PLT & AUTO DIFF Routine 11:38 AM EST Undifferentiated connective tissue disease HC COMPLEMENT,C3 SERUM Routine 11:38 AM EST Undifferentiated connective tissue disease HC VENIPUNCTURE Routine 04/28/2021 11:38 AM EST Undifferentiated connective tissue disease HC THYROID STIMULATING HORMONE, SERUM Routine 04/28/2021 11:38 AM EST Constipation, unspecified constipation type COMPREHENSIVE METABOLIC PANEL Routine 04/28/2021 11:38 AM EST Undifferentiated connective tissue disease documented in this encounter Results * Bilirubin, Direct (04/28/2021 11:38 AM EST) Pathologist [facility] Bilirubin, Direct 0.1 0.0 - 0.3 mg/dL [facility] Blood 04/28/2021 11:3 8 AM EST 04/28/2021 11:53 AM EST Narrative Resulting Agency Comment Spec In Lab Herlinda Hillman MD CHEMISTRY ORDERABLES Performing Organization Address City/State/[facility] Co de Phone Number [facility] [place] [address] * (ABNORMAL) Differential, Automated (04/28/2021 11:38 AM EST) Neutrophil % 70.2 % [facility] Neutrophil Absolute 3.50 1.70 - 6.10 x10(3)/mc L [facility] Lymph % 15.6 % [facility] Lymphocytes Abs 0.8(L) 0.9 - 3.2 x10(3)/mc L [facility] Monocyte % 9.2 % [facility] Monocyte Abs 0.5 0.3 - 0.9 x10(3)/[facility] Eos % 3.2 % [facility] Eosinophils Abs 0.2 0.0 - 0.4 x10(3)/[facility] Basophil % 1.6 % [facility] Baso Absolute 0.1 0.0 - 0.1 x10(3)/[facility] Immature Gran % 0.20 % [facility] Comment: Immature granulocytes(IG's)percentage and absolute count will include metamyelocytes, myelocytes, and promyelocytes. Blood smears from CBCs yielding IG's will be scanned manually for concordance. If this scan disagrees with the automated IG or if promyelocytes are noted, a manual differential will be performed. Immature Gran Absolute 0.01 0.00 - 0.04 x10(3)/[facility] Blood 04/28/2021 11:3 8 AM EST 04/28/2021 11:53 AM EST Narrative Resulting Agency Comment Spec In Lab Arnaldomarium Mccabe DO HEMATOLOGY ORDERABL ES Performing Organization Address City/State/[facility] Co de Phone Number [facility] [place] [address] * (ABNORMAL) Hemogram (04/28/2021 11:38 AM EST) White Blood Cell 5.0 4.0 - 9.5 x10(3)/[facility] Red Blood Cell 4.08 4.00 - 5.21 x10(6)/[facility] Hemoglobin 13.1 11.7 - 15.5 g/dL [facility] Hematocrit 37.8 35.7 - 45.8 % [facility] Mean Cell Volume 92.6 82.6 - 94.4 fL [facility] Mean Cell Hemoglobin 32.1(H) 27.1 - 32.0 pg [facility] Mean Cell Hemoglobin Concentration 34.7 31.7 - 35.0 g/dL [facility] Platelet 214 145 - 357 x10(3)/mc L [facility] RDW Standard Deviation 40.3 37.0 - 46.0 fL [facility] RDW coefficient of variation 11.8 11.5 - 14.1 % [facility] Mean Platelet Volume 10.7 7.6 - 12.9 fL [facility] NRBC% auto 0.0 % [facility] NRBC Absolute 0.000 0.000 - 0.000 x10(3)/mc L [facility] Blood 04/28/2021 11:3 8 AM EST 04/28/2021 11:53 AM EST Narrative Resulting Agency Comment Spec In Lab Arnaldo Mccabe DO HEMATOLOGY ORDERABL ES Performing Organization Address City/[facility]/ZIP Co de Phone Number [facility] [place] [address] * Sedimentation rate (04/28/2021 11:38 AM EST) Sedimentation Rate Automated 4 2 - 37 mm/hr [facility] Comment: Effective May 10, 2019 new capillary photometric technology has resulted in a change in reference ranges. It is recommended that each ESR result be reviewed with its own age appropriate reference range. Blood 04/28/2021 11:3 8 AM EST 04/28/2021 11:53 AM EST Narrative Resulting Agency Comment Spec In Lab Luis Bradley MD HEMATOLOGY ORDERABLE S [facility] [place] [address] * Comprehensive metabolic panel (non-fasting) (04/28/2021 11:38 AM EST) Glucose 86 65 - 199 mg/dL [facility] Comment:Diabetes: >=200 mg/d L plus symptoms Blood Urea Nitrogen 10 8 - 18 mg/dL [facility] Creatinine 0.78 0.70 - 1.20 mg/dL [facility] Sodium 139 135 - 145 mmol/L [facility] Potassium 4.1 3.5 - 5.0 mmol/L [facility] Comment: Please note: ??Patients with WBC >100,000 may have falsely elevated Potassium levels. ??For accurate Potassium quantification in these patients send serum separator tube (gold top) for subsequent determinations. ??Contact the Clinical Chemistry Laboratory if there are any questions. Chloride 104 98 - 107 mmol/L [facility] Carbon Dioxide 26 22 - 31 mmol/L [facility] Anion Gap 9 5 - 15 mmol/L [facility] Calcium 10.0 8.5 - 10.5 mg/dL [facility] Protein, Total 7.1 6.1 - 8.0 g/dL [facility] Albumin 4.7 3.2 - 5.2 g/dL [facility] Aspartate Aminotransferase 24 0 - 30 unit/L [facility] Alanine Aminotransferase 23 0 - 30 unit/L [facility] Alkaline Phosphatase 39 35 - 105 unit/L [facility] Bilirubin, Total 0.3 0.2 - 1.3 mg/dL [facility] Est Glomerular Filtration Rate 91 >=60 mL/min/1. 73 m?? [facility] Comment: This patient? s estimated glomerular filtration rate (eGFR) is between 91 mL/min/1.73 m2 (patients with less muscle mass) and 106 mL/min/1.73 m2 (patients with more muscle mass) [...] and symptoms in addition to eGFR. Blood 04/28/2021 11:3 8 AM EST 04/28/2021 11:53 AM EST Narrative Resulting Agency Comment Spec In Lab Luis Bradley MD CHEMISTRY ORDERABLES Performing Organization Address [facility] Co de Phone Number [facility] [place] [address] * Tissue transglutaminase, IgA (04/28/2021 11:38 AM EST) TTG IgA Ab 0.3 0.1 - 10.0 u/ml [facility] Comment: Negative = <7 U/mL Equivocal = 7-10 U/mL Positive = >10 U/mL Blood 04/28/2021 11:3 8 AM EST 04/28/2021 2:06 PM EST Narrative Resulting Agency Comment Spec In Lab L Villa Beltran MD IMMUNOLOGY ORDERABLE S Performing Organization Address [facility] Co de Phone Number [facility] [place] [address] * TSH (04/28/2021 11:38 AM EST) Thyroid Stimulating Hormone 1.22 0.27 - 4.20 mcIU/mL [facility] Comment: Reference Interval (mcIU/mL): Females: ??First Trimester: 0.23-3.88 ??Second Trimester: 0.22-3.90 ??Third Trimester: 0.44-4.66 Blood 04/28/2021 11:3 8 AM EST 04/28/2021 11:53 AM EST Narrative Resulting Agency Comment Spec In Lab Miguelina Beltran MD CHEMISTRY ORDERABLES Performing Organization Address [facility] Co de Phone Number [facility] [place] [address] * (ABNORMAL) C3 Complement (04/28/2021 11:38 AM EST) Complement C3 80(L) 90 - 180 mg/dL [facility] Blood 04/28/2021 11:3 8 AM EST 04/28/2021 11:53 AM EST Narrative Resulting Agency Comment Spec In Lab Keith Bryant II, DO CHEMISTRY ORDERA BLES Performing Organization Address City/[facility]/ZIP Co de Phone Number [facility] [place] [address] * (ABNORMAL) C4 Complement (04/28/2021 11:38 AM EST) Complement C4 8(L) 10 - 40 mg/dL [facility] Blood 04/28/2021 11:3 8 AM EST 04/28/2021 11:53 AM EST Narrative Resulting Agency Comment Spec In Lab Keith Bryant II, DO CHEMISTRY ORDERA BLES Performing Organization Address [facility] Co de Phone Number [facility] [place] [address] documented in this encounter Visit Diagnoses Diagnosis Undifferentiated connective tissue disease Unspecified diffuse connective tissue disease Constipation, unspecified constipation type Diarrhea, unspecified type Elevated liver enzymes Nonspecific elevation of levels of transaminase or lactic acid dehydrogenase (LDH) Hematochezia Blood in stool documented in this encounter Care Teams Commonwealth Attorney Relationship Specialty Start Date End Date None None PCP - General 01/22/21 07/16/21 documented as of this encounter
--- OUTSIDE RECORDS SUMMARY | 2024-06-23 18:21 | XMS_ITS | Encounter Summary ---
Author Organization [facility] [place] [address] Care Team Providers Care Meteorological Engineer Name Role Phone None Primary Care Provider Unavailabl e Encounter Details Date Type Department Care Team (Late st Contact Info) Description 05/28/2021 10:00 AM EST Ancillary Procedure Radiology Library at [facility] [place] [address] Gilbert La MD [facility] [place] [address] Social History Tobacco Use Types Packs/Day Years [...] 9:45 AM EST Hospital Encounter Gastroenterology at [facility] [place] [phone] Flor Velasco MD [facility] [place] [address] 06/30/2024 9:45 AM EST - 06/30/2024 10:45 AM EST [place] [phone] Flor Velasco MD [facility] [place] [address] COLONOSCOPY, DIAGNOSTIC (WRVU 3.26) 07/27/2024 8:00 AM EST TH Visit (TeleHealth) [place] [phone] Unruly Ramirez MD [facility] [place] [address] 08/03/2024 3:00 PM EST Office Visit Neurology at [address] [phone] Melvin Ramírez MD [facility] DR [place] [address] 08/25/2024 1:45 PM EDT Office [place] [phone] Keven Church MD [facility] [place] [address] Scheduled Procedures Name Priority Associated Diagnoses Date/Ti me COLONOSCOPY, DIAGNOSTIC (WRV U 3.26) Hematochezia 06/30/2024 9:45 AM EST documented as of this encounter Procedures Procedure Name Priority Date/Time Associated Diagnosis Comments FILM LIBRARY STORAGE ONLY ULTRASOUND STUDY Routine 05/28/2021 9:56 AM EST documented in this encounter Results * Film Library- Storage Only Ultrasound Study (05/28/2021 9:56 AM EST) Narrative [facility] - 05/28/2021 9:56 AM EST This exam is auto-finalizing. It's purpose is for storage only. Gilbert La MD IMG FILM LIBRARY ORD ERABLES Performing Organization Address City/State/[facility] Co de Phone Number [place], [place] documented in this encounter Visit Diagnoses Not on filedocumented in this encounter Care Teams Meteorological Engineer Relationship Specialty Start Date End Date None None PCP - General 01/22/21 07/16/21 documented as of this encounter
--- OUTSIDE RECORDS SUMMARY | 2024-06-23 18:21 | XMS_ITS | Encounter Summary ---
[place] [address] Care Team Providers Care Brain Picker Name Role Phone Geraldo Gracia DNP Primary Care Provider Reason for Referral * Consultation (Routine) - Closed Specialty Diagnoses / Procedures Referred By Mikaela costa Referred To Contact Dermatology Diagnoses Undifferentiated connective tissue disease Arnaldo Mccabe DO [facility] [place] [address] [facility] Dermatology [address] [place] [address] Referral ID Status Reason Start Date Expiration Date V isits Requested Visits Authorized [id number] Closed Consult, Test & Treat 09/18/2021 09/18/2022 1 1 Encounter Details Date Type Department Care Team (Latest Contact Info) Description 09/18/2021 2:00 PM EDT Office [place] [phone] Arnaldo Mccabe DO Undifferentiated connective tissue disease; Anti-TPO antibodies present; Rotator cuff injury, right, subsequent encounter; Raynaud's phenomenon without gangrene Social History Tobacco [...] Sign Reading Time Taken Comments Blood Pressure 127/62 09/18/2021 1:44 PM EDT Pulse 99 09/18/2021 1:44 PM EDT Temperature 35.7 ??C (96.3 ??F) 09/18/2021 1:44 PM ED T Respiratory Rate - - Oxygen Saturation 100% 09/18/2021 1:44 PM EDT Inhaled Oxygen Concentration - - Weight 50 kg (110 lb 3.2 oz) 09/18/2021 1:44 PM EDT Height 157.5 cm (5' 2) 09/18/2021 1:44 PM EDT Body Mass Index 20.16 09/18/2021 1:44 PM EDT documented in this encounter Progress Notes * Arnaldo Mccabe DO - 09/18/2021 2:00 PM EDT Rheumatology Outpatient Follow Up Note PCP: AVA Justin is a 46 y.o. female PMH celiac [...] – [place] 1:320 speckled and cytoplasmic, COLBY negative, dsDNA negative, anti-mitochondrial negative, +anti-smooth muscle 1:160, C3 mildly low 86-88, normal C4, TPO 982, TTG negative, APS ab negative - 09/2020 episode of Raynaud's, initiated HCQ - 12/2020 worsening photosensitivity with fatigue, arthralgias, rash from sun - 07/2021 nail caps few dilated loops right hand Interval History: - having significant pain in her right hand more so than left - fingers are very painful, erythematous and difficult to perform activities such as using a stapler - she feels like her whole body is swollen, gaining weight but admits she doesn't eat much - no edema noted - no oral ulcers, photosensitive rashes, increased hair loss compared to baseline - no changes to any meds - tried amlodipine 2.5mg for raynaud's but did not tolerate ROS (positives in bold): Gen: no fevers, no chills, no night sweats Pulm: no SOB CV: no CP Abd: no abd pain, no nausea, no vomiting, no diarrhea MSK: see HPI No family history of RA, SLE, OA, Sjogren's, Scleroderma, or gout Meds and Allergies: Reviewed in eDH Physical exam: BP 127/62 Pulse 99 Temp 35.7 ??C (96.3 ??F) (Temporal) Ht 157.5 cm (5' 2) Wt 50 kg (110 lb3.2 oz) SpO2 100% BMI 20.16 kg/m?? Gen: well appearing, alert and oriented x 3, nad HEENT: NCAT, EOMI, moist mucous membranes, normal sclerae Heart: regular rate, no murmurs, rubs or gallops Lungs: clear to auscultation b/l Skin: no rheumatologic rashes Nails: no nail pitting. periungal erythema with some dilated loops on right hand, particularly R2nd Joints: Shoulders: left FROM, non-tender to palpation. Right arm limited abduction to 180 degrees. Pain with adduction. Internal/external rotations normal. Elbows:FROM Wrists: FROM, no swelling, non-tender Hands: No synovitis. B/l digits tips blueish discoloration with erythema more proximally of right hand. Cold. +Heberden nodes b/l. Right hand digits soft tissue swelling more than left. Full claw andfist Knees: FROM, no effusion, no tenderness Labs/Studies: Reviewed. Assessment/Plan: Karolina Olivas is a [...] in addition to other nonspecific symptoms. Her hand symptoms are very similar to our visit two months ago when I mentioned the following: Her joint pain in her hands are interesting, particularly in her right hand. Digits look more puffy than the left, however there is no synovitis on her exam today. Her digits are also very cold, initially having blueish discoloration at the tips and later erythematous. Although she felt warm and reports infrequent Raynaud's, I question if she is having worsening Raynaud's than she thinks. I would also suspect that this could be worsening her joint pain. She was unable to tolerate amlodipine, reported dizziness but took it midday but I had instructed to take it at night. In any case, her right hand appears slightly worse and I do believe that her nail capillaries are changing (I.e. increased dilation) with periungal erythema that was not present when I initially met her. I brought Dr Lino into the room for a second opinion and agreed that her joint pain could be secondary to vascular changes such as Chilblains vs Raynaud's. There is no synovitis on exam today and previous ultrasound evaluation also did not yield synovitis or power-doppler signals. We discussed a trial of nifedipine instead and she was again instructed to take it at night. We discussed dermatology consult for second opinion as well. Also discussed trial of low-dose prednisone for 7-10 days to see if that helps as well. I think she also has a degree of POTS. She cannot ingest foods with corn syrup but I urged her to look into Gatorade or Powerade products that are gluten-free and without ingredients that she cannot tolerate. Salt tablets were another option that she declined at this time. Because her symptoms are morphing into a more SLE picture than UCTD, I will repeat her serologies include ARNULFO and COLBY. She is still on HCQ 200mg daily and getting yearly eye exams. Could consider azathioprine for joint arthralgias potentially in the future. I also believe a lot of her pain is secondary to chronic pain syndrome. The steroid shot in her right shoulder helped immensely however now is losing ROM again. It is too early for repeat steroid injection. I have sent a referral for PT. PLAN: - Labs: CBC, CMP, ESR, CRP, ARNULFO, COLBY, C3, C4, dsDNA, TSH, fT4 - Trial of nifedipine 30mg daily to take at night - Trial of low-dose prednisone 5mg for 7-10 days - PT consult - keeping core body temperature warm, use of hand warmers - PRN NSAIDs - HCQ 200mg qday Follow up 3 months Patient was seen and discussed with Dr. Lino. Arnaldo Mccabe DO Rheumatology Fellow Pager: [phone] * Wan Lino MD - 09/18/2021 2:00 PM EDT The patient was seen by Arnaldo Mccabe DO, rheumatology fellow II. We reviewed the patient's interval history and exam, and Dr. Mccabe's management plan. I did not directly meet with the patient. Wan Lino MD Staff Control Engineer documented in this encounter Plan of Treatment Upcoming Encounters Date Type Department Care Team (Latest Contact Info) Description 06/30/2024 9:45 AM [facility] Hospital Encounter [place] [address] Flor Velasco MD [facility] [address] 06/30/2024 9:45 AM EST - 06/30/2024 10:45 AM EST Surgery [place] [address] Flor Velasco MD [facility] [place] [address] COLONOSCOPY, DIAGNOSTIC (WRVU 3.26) 07/27/2024 8:00 AM EST TH Visit (TeleHealth) [place] [phone] Unruly Ramirez MD [facility] [place] [address] 08/03/2024 3:00 PM EST Office Visit Neurology at [address] [phone] Melvin Ramírez MD [facility] [place] [address] 08/25/2024 1:45 PM EDT Office [place] [phone] Keven Church MD [facility] [place] [address] Scheduled Procedures Name Priority Associated Diagnoses Date/Ti me COLONOSCOPY, DIAGNOSTIC (WRV U 3.26) Hematochezia 06/30/2024 9:45 AM EST Scheduled Referrals Name Type Priority Associated Diagnoses Order Schedule Referral to Dermatology Outpatient Referral Routine Undifferentiated connective tissue disease Ordered: 09/18/2021 documented as of this encounter Procedures Procedure Name Priority Date/Time Associated Diagnosis Comments HC PROTEIN, QUANTITATIVE, URINE Routine 09/18/2021 3:10 PM EDT Undifferentiated connective tissue disease URINALYSIS WITH REFLEX CULTURE Routine 09/18/2021 3:10 PM EDT Undifferentiated connective tissue disease HC C-REACTIVE PROTEIN Routine 09/18/2021 3:00 PM EDT Undifferentiated connective tissue disease HC PCH EXTRACTABLE NUCLEAR ANTIGEN Routine 09/18/2021 3:00 PM EDT Undifferentiated connective tissue disease HC PCH DNA AB DS (MCGRATH) Routine 09/18/2021 3:00 PM EDT Undifferentiated connective tissue disease HEMOGRAM Routine 09/18/2021 3:00 PM EDT Undifferentiated connective tissue disease DIFFERENTIAL, AUTOMATED Routine 09/18/2021 3:00 PM EDT Undifferentiated connective tissue disease HC ESR-SEDIMENTATION RATE, BLOOD Routine 09/18/2021 3:00 PM EDT Undifferentiated connective tissue disease HC CBC,PLT & AUTO DIFF Routine 2 3:00 PM EDT Undifferentiated connective tissue disease HC COMPLEMENT,C3 SERUM Routine 3:00 PM EDT Undifferentiated connective tissue disease HC COMPLEMENT C4, PLASMA Routine 09/18/2021 3:00 PM EDT Undifferentiated connective tissue disease HC PCH ANATITRE (ANDPATTERN) Routine 09/18/2021 3:00 PM EDT Undifferentiated connective tissue disease HC THYROID STIMULATING HORMONE, SERUM Routine 09/18/2021 3:00 PM EDT Anti-TPO antibodies present HC FREE THYROXINE (T4) Routine 2 3:00 PM EDT Anti-TPO antibodies present COMPREHENSIVE METABOLIC PANEL Routine 09/18/2021 3:00 PM EDT Undifferentiated connective tissue disease documented in this encounter Results * Urinalysis with reflex Culture (09/18/2021 3:10 PM EDT) Glucose, Urine Dipstick Negative Negative mg/dL [facility] Protein, Urine Dipstick Negative Negative mg/dL [facility] Bilirubin, Urine Dipstick Negative Negative mg/dL [facility] Comment: Clinical correlation required for positive Urine Bilirubin results as false positive may occur with some drugs and drug related products. If a false positive is suspected a serum total bilirubin should be considered if clinically indicated. Urobilinogen, Urine Dipstick Normal Normal mg/dL [facility] pH, Urn (dipstick) 7.0 5.0 - 8.0 [facility] Blood, Urine Dipstick Negative Negative mg/dL [facility] Ketone, Urine Dipstick Negative Negative mg/dL [facility] Nitrite, Urine Dipstick Negative Negative [facility] Leukocytes, Urine Dipstick Negative Negative mcL [facility] Appearance, Urine Dipstick Clear Clear [facility] Specific [place] Urine Automated 1.017 1.005 - 1.030 [facility] Color, Urine Dipstick Yellow Yellow [facility] Reflex to Culture No [facility] Urine NS 09/18/2021 3:10 PM EDT 09/18/2021 3:32 PM EDT Narrative Resulting Agency Comment Spec In Lab Wan Lino MD URINE ORDERABLES [facility] [place] [address] * Protein/Creatinine Ratio, urine (09/18/2021 3:10 PM EDT) Creatinine, Urine 66 mg/dL [facility] Protein, Urine 7 0 - 12 mg/dL [facility] Protein / Creatinine Ratio, Urine 0.1 ratio [facility] Urine 09/18/2021 3:10 PM EDT 09/18/2021 3:33 PM EDT Narrative Resulting Agency Comment Spec In Lab Wan Lino MD URINE ORDERABLES [facility] [place] [address] * (ABNORMAL) Differential, Automated (09/18/2021 3:00 PM EDT) Neutrophil % 70.0 % [facility] Neutrophil Absolute 3.53 1.70 - 6.10 x10(3)/mc L [facility] Lymph % 14.3 % [facility] Lymphocytes Abs 0.7(L) 0.9 - 3.2 x10(3)/ L [facility] Monocyte % 12.3 % [facility] Monocyte Abs 0.6 0.3 - 0.9 x10(3)/ L [facility] Eos % 1.8 % [facility] Eosinophils Abs 0.1 0.0 - 0.4 x10(3)/ L [facility] Basophil % 1.4 % [facility] Baso Absolute 0.1 0.0 - 0.1 x10(3)/ L [facility] Immature Gran % 0.20 % [facility] Comment: Immature granulocytes(IG's)percentage and absolute count will include metamyelocytes, myelocytes, and promyelocytes. Blood smears from CBCs yielding IG's will be scanned manually for concordance. If this scan disagrees with the automated IG or if promyelocytes are noted, a manual differential will be performed. Immature Gran Absolute 0.01 0.00 - 0.04 x10(3)/ L [facility] Blood 09/18/2021 3:00 PM EDT 09/18/2021 3:28 PM EDT Narrative Resulting Agency Comment Spec In Lab Arnaldo Mccabe DO HEMATOLOGY ORDERABL ES Performing Organization Address City/[facility]/ZIP Co de Phone Number [facility] [place] [address] * Hemogram (09/18/2021 3:00 PM EDT) Pathologist [facility] White Blood Cell 5.0 4.0 - 9.5 x10(3)/[facility] Red Blood Cell 4.04 4.00 - 5.21 x10(6)/[facility] Hemoglobin 12.8 11.7 - 15.5 g/dL [facility] Hematocrit 37.0 35.7 - 45.8 % [facility] Mean Cell Volume 91.6 82.6 - 94.4 fL [facility] Mean Cell Hemoglobin 31.7 27.1 - 32.0 pg [facility] Mean Cell Hemoglobin Concentration 34.6 31.7 - 35.0 g/dL [facility] Platelet 234 145 - 357 x10(3)/[facility] RDW Standard Deviation 40.7 37.0 - 46.0 [facility] RDW coefficient of variation 12.1 11.5 - 14.1 % [facility] Mean Platelet Volume 11.1 7.6 - 12.9 fL [facility] NRBC% auto 0.0 % [facility] NRBC Absolute 0.000 0.000 - 0.000 x10(3)/[facility] Blood 09/18/2021 3:00 PM EDT 09/18/2021 3:28 PM EDT Narrative Resulting Agency Comment Spec In Lab Arnaldo Mccabe DO HEMATOLOGY ORDERABL ES [facility] [place] [address] * T4, free (09/18/2021 3:00 PM EDT) Free T4 1.54 0.93 - 1.70 ng/dL [facility] Comment: Reference Interval (ng/dL): Females: ??First Trimester: 0.97-1.68 ??Second Trimester: 0.77-1.51 ??Third Trimester: 0.77-1.49 Blood 09/18/2021 3:00 PM EDT 09/18/2021 3:28 PM EDT Narrative Resulting Agency Comment Spec In Lab Wan Lino MD CHEMISTRY ORDERAB LES Performing Organization Address [facility] Co de Phone Number [facility] [place] [address] * TSH (09/18/2021 3:00 PM EDT) [facility] Thyroid Stimulating Hormone 1.44 0.27 - 4.20 mcIU/mL [facility] Comment: Reference Interval (mcIU/mL): Females: ??First Trimester: 0.23-3.88 ??Second Trimester: 0.22-3.90 ??Third Trimester: 0.44-4.66 Blood 09/18/2021 3:00 PM EDT 09/18/2021 3:28 PM EDT Narrative Resulting Agency Comment Spec In Lab aWn Lino MD CHEMISTRY ORDERAB LES Performing Organization Address [facility] de Phone Number [facility] [place] [address] * DNA Antibody (Double-Stranded) (09/18/2021 3:00 PM EDT) [facility] dsDNA Ab <12.3 <30.0 (Negative) IU/mL [facility] Comment: Negative for dsDNA antibody by enzyme immunoassay. No further testing recommended. Test Performed by: [facility] - [address] [address] Senior Datastage Developer: Shay Low M.D. Ph.D.; CLIA# [id number] Blood 09/18/2021 3:00 PM EDT 09/19/2021 9:45 AM EDT Narrative Resulting Agency Comment Spec In Lab Wan Lino MD LAB SEND OUT ASHELY SELF [facility] [place] [address] * (ABNORMAL) Comprehensive metabolic panel (non-fasting) (09/18/2021 3:00 PM EDT) Glucose 92 65 - 199 mg/dL [facility] Comment:Diabetes: >=200 mg/d L plus symptoms Blood Urea Nitrogen 12 8 - 18 mg/dL [facility] Creatinine 0.66(L) 0.70 - 1.20 mg/dL [facility] Sodium 139 135 - 145 mmol/L [facility] Potassium 4.0 3.5 - 5.0 mmol/L [facility] Comment: Please note: ??Patients with WBC >100,000 may have falsely elevated Potassium levels. ??For accurate Potassium quantification in these patients send serum separator tube (gold top) for subsequent determinations. ??Contact the Clinical Chemistry Laboratory if there are any questions. Chloride 102 98 - 107 mmol/L [facility] Carbon Dioxide 26 22 - 31 mmol/L [facility] Anion Gap 11 5 - 15 mmol/L [facility] Calcium 9.6 8.5 - 10.5 mg/dL [facility] Protein, Total 7.2 6.1 - 8.0 g/dL [facility] Albumin 4.7 3.2 - 5.2 g/dL [facility] Aspartate Aminotransferase 21 0 - 30 unit/L [facility] Alanine Aminotransferase 14 0 - 30 unit/L [facility] Alkaline Phosphatase 39 35 - 105 unit/L [facility] Bilirubin, Total <0.2(L) 0.2 - 1.3 mg/dL [facility] Est Glomerular Filtration Rate 105 >=60 mL/min/1. 73 m?? [facility] Comment: This patient? s estimated glomerular filtration rate (eGFR) is between 105 mL/min/1.73 m2 (patients with less muscle mass) and 122 mL/min/1.73 m2 (patients with more muscle mass) [...] and symptoms in addition to eGFR. Blood 09/18/2021 3:00 PM EDT 09/18/2021 3:28 PM EDT Narrative Resulting Agency Comment Spec In Lab Wan Lino MD CHEMISTRY ORDERAB LES Performing Organization Address [facility] Co de Phone Number [facility] [place] [address] * CRP, acute inflammation (09/18/2021 3:00 PM EDT) C-Reactive Protein <3.0 <=4.9 mg/L [facility] Blood 09/18/2021 3:00 PM EDT 09/18/2021 3:28 PM EDT Narrative Resulting Agency Comment Spec In Lab Wan Lino MD CHEMISTRY ORDERAB LES Performing Organization Address [facility] Co de Phone Number [facility] [place] [address] * Sedimentation rate (09/18/2021 3:00 PM EDT) Sedimentation Rate Automated 10 2 - 37 mm/hr [facility] Comment: Effective May 10, 2019 new capillary photometric technology has resulted in a change in reference ranges. It is recommended that each ESR result be reviewed with its own age appropriate reference range. Blood 09/18/2021 3:00 PM EDT 09/18/2021 3:28 PM EDT Narrative Resulting Agency Comment Spec In Lab Wan Lino MD HEMATOLOGY ORDERA BLES Performing Organization Address [facility] Co de Phone Number [facility] [place] [address] * C4 Complement (09/18/2021 3:00 PM EDT) Complement C4 11 10 - 40 mg/dL [facility] Blood 09/18/2021 3:00 PM EDT 09/18/2021 3:28 PM EDT Narrative Resulting Agency Comment Spec In Lab Wan Lino MD CHEMISTRY ORDERAB LES Performing Organization Address [facility] de Phone Number [facility] [place] [address] * (ABNORMAL) C3 Complement (09/18/2021 3:00 PM EDT) Complement C3 84(L) 90 - 180 mg/dL [facility] Blood 09/18/2021 3:00 PM EDT 09/18/2021 3:28 PM EDT Narrative Resulting Agency Comment Spec In Lab Wan Lino MD CHEMISTRY ORDERAB LES Performing Organization Address [facility] de Phone Number [facility] [place] [place] [address] * Extractable Nuclear Antigen (COLBY) Ab (09/18/2021 3:00 PM EDT) COLBY Ab Test ?Result ? Flag ??Unit ??RefValue Ab to Extractable Nuclear Ag Eval,S ??SS-A/Ro Ab, IgG, S ?<0.2 ? U ? <1.0 (Negative) ??SS-B/La Ab, IgG, S ?<0.2 ? U ? <1.0 (Negative) ??Sm Ab, IgG, S ? <0.2 ? U ? <1.0 (Negative) ??ROTARY SHEAR WORKER HELPER Ab, IgG, S ?0.7 ?U ? <1.0 (Negative) ??Scl 70 Ab, IgG, S ? <0.2 ? U ? <1.0 (Negative) ??Ivory 1 Ab, IgG, S ? <0.2 ? U ? <1.0 (Negative) ?Test Performed by: ?[facility] ?[address] [place] [address] ?Senior Datastage Developer: Shay Low M.D. Ph.D.; CLIA# [id number] [facility] Blood 09/18/2021 3:00 PM EDT 09/19/2021 9:45 AM EDT Narrative Resulting Agency Comment Spec In Lab Wan Lino MD LAB SEND OUT ASHLEY SELF [facility] [place] [address] * (ABNORMAL) ARNULFO (09/18/2021 3:00 PM EDT) ARNULOF Ab Screen Test ?Result ? Flag ??Unit ??RefValue Antinuclear Ab, HEp-2 Substrate, ?Positive 1:320 ??@ ?<1:80 (Negative) ??S ? ADDITIONAL INFORMATION --------- ?Method: Immunofluorescence using HEp-2 cellular substrate. ??ARNULFO Titer: ?1:320 ??ARNULFO Pattern: ?Centromere ?Test Performed by: ?[facility] ?[address] [place] [address] ?Senior Datastage Developer: Shay Low M.D. Ph.D.; CLIA# [id number] ([id number]) [facility] Blood 09/18/2021 3:00 PM EDT 09/19/2021 9:45 AM EDT Narrative Resulting Agency Comment Spec In Lab Wan Lino MD LAB SEND OUT ASHLEY SELF [facility] [place] [address] documented in this encounter Visit Diagnoses Diagnosis Undifferentiated connective tissue disease Unspecified diffuse connective tissue disease Anti-TPO antibodies present Other and unspecified nonspecific immunological findings Rotator cuff injury, right, subsequent encounter Raynaud's phenomenon without gangrene Hematochezia Blood in stool documented in this encounter Care Teams Brain Picker Relationship Specialty Start Date End Date Geraldo Gracia DNP [address] [place] [address] PCP - General Family Medicine 07/17/21 09/30/22 documented as of this encounter
--- OUTSIDE RECORDS SUMMARY | 2024-06-23 18:21 | XMS_ITS | Encounter Summary ---
Author Organization Formerly [facility] [place] [address] Care Team Providers Care Press Maintainer Name Role Phone Geraldo Gracia DNP Primary Care Provider Encounter Details Date Type Department Care Team (Latest Contact Info) Description 07/17/2021 3:05 PM EST Laboratory Appointment Lab [address] [place] [phone] Undifferentiated connective tissue disease Social History Tobacco [...] AM EST Hospital Encounter [place] [phone] Flor Velasco MD [facility] [place] [address] 06/30/2024 9:45 AM EST - 06/30/2024 10:45 AM EST Surgery Gastroenterology at [place] [phone] Flor Velasco MD [facility] [place] [address] COLONOSCOPY, DIAGNOSTIC (WRVU 3.26) 07/27/2024 8:00 AM EST TH Visit (TeleHealth) Gastroenterology at [place] [phone] Unruly Ramirez MD [facility] [place] [address] 08/03/2024 3:00 PM EST Office Visit Neurology at [address] [phone] Melvin Ramírez MD [facility] [address] 08/25/2024 1:45 PM EDT Office Visit [place] [phone] Keven Church MD [facility] [place] [address] Scheduled Procedures Name Priority Associated Diagnoses Date/Ti me COLONOSCOPY, DIAGNOSTIC (WRV U 3.26) Hematochezia 06/30/2024 9:45 AM EST documented as of this encounter Procedures Procedure Name Priority Date/Time Associated Diagnosis Comments HC C-REACTIVE PROTEIN Routine 07/17/2021 3:26 PM EST Undifferentiated connective tissue disease HEMOGRAM Routine 07/17/2021 3:26 PM EST Undifferentiated connective tissue disease DIFFERENTIAL, AUTOMATED Routine 07/17/2021 3:26 PM EST Undifferentiated connective tissue disease HC ESR-SEDIMENTATION RATE, BLOOD Routine 07/17/2021 3:26 PM EST Undifferentiated connective tissue disease HC CBC,PLT & AUTO DIFF Routine 2 3:26 PM EST Undifferentiated connective tissue disease HC CH50 Routine 07/17/2021 3:26 PM EST Undifferentiated connective tissue disease HC COMPLEMENT,C3 SERUM Routine 2 3:26 PM EST Undifferentiated connective tissue disease HC COMPLEMENT C4, PLASMA Routine 07/17/2021 3:26 PM EST Undifferentiated connective tissue disease COMPREHENSIVE METABOLIC PANEL Routine 07/17/2021 3:26 PM EST Undifferentiated connective tissue disease HC PROTEIN, QUANTITATIVE, URINE Routine 07/17/2021 3:22 PM EST Undifferentiated connective tissue disease URINALYSIS WITH REFLEX CULTURE Routine 07/17/2021 3:22 PM EST Undifferentiated connective tissue disease documented in this encounter Results * (ABNORMAL) Differential, Automated (07/17/2021 3:26 PM EST) Neutrophil % 73.0 % [facility] Neutrophil Absolute 4.22 1.70 - 6.10 x10(3)/mc L [facility] Lymph % 13.3 % [facility] Lymphocytes Abs 0.8(L) 0.9 - 3.2 x10(3)/mc L [facility] Monocyte % 10.6 % [facility] Monocyte Abs 0.6 0.3 - 0.9 x10(3)/mc L [facility] Eos % 1.7 % [facility] Eosinophils Abs 0.1 0.0 - 0.4 x10(3)/mc L [facility] Basophil % 1.2 % [facility] Baso Absolute 0.1 0.0 - 0.1 x10(3)/mc L [facility] Immature Gran % 0.20 % [facility] Comment: Immature granulocytes(IG's)percentage and absolute count will include metamyelocytes, myelocytes, and promyelocytes. Blood smears from CBCs yielding IG's will be scanned manually for concordance. If this scan disagrees with the automated IG or if promyelocytes are noted, a manual differential will be performed. Immature Gran Absolute 0.01 0.00 - 0.04 x10(3)/mc L [facility] Blood 07/17/2021 3:26 PM EST 07/17/2021 3:35 PM EST Narrative Resulting Agency Comment Spec In Lab Arnaldo Mccabe DO HEMATOLOGY ORDERABL ES [facility] [place] [address] * (ABNORMAL) Hemogram (07/17/2021 3:26 PM EST) White Blood Cell 5.8 4.0 - 9.5 x10(3)/mc L [facility] Red Blood Cell 3.98(L) 4.00 - 5.21 x10(6)/mc L [facility] Hemoglobin 12.8 11.7 - 15.5 g/dL [facility] Hematocrit 36.5 35.7 - 45.8 % [facility] Mean Cell Volume 91.7 82.6 - 94.4 fL [facility] Mean Cell Hemoglobin 32.2(H) 27.1 - 32.0 pg [facility] Mean Cell Hemoglobin Concentration 35.1(H) 31.7 - 35.0 g/dL [facility] Platelet 244 145 - 357 x10(3)/mc L [facility] RDW Standard Deviation 40.0 37.0 - 46.0 fL [facility] RDW coefficient of variation 12.1 11.5 - 14.1 % [facility] Mean Platelet Volume 10.0 7.6 - 12.9 fL [facility] NRBC% auto 0.0 % [facility] NRBC Absolute 0.000 0.000 - 0.000 x10(3)/mc L [facility] Blood 07/17/2021 3:26 PM EST 07/17/2021 3:35 PM EST Narrative Resulting Agency Comment Spec In Lab Arnaldo Mccabe DO HEMATOLOGY ORDERABL ES Performing Organization Address City/[facility]/ZIP Co de Phone Number [facility] [place] [address] * C3 Complement (07/17/2021 3:26 PM EST) Complement C3 90 90 - 180 mg/dL [facility] Blood 07/17/2021 3:26 PM EST 07/17/2021 3:35 PM EST Narrative Resulting Agency Comment Spec In Lab Leeann Mccord MD CHEMISTRY ORDERABLES Performing Organization Address [facility] Co de Phone Number [facility] [place] [address] * C4 Complement (07/17/2021 3:26 PM EST) Complement C4 11 10 - 40 mg/dL [facility] Blood 07/17/2021 3:26 PM EST 07/17/2021 3:35 PM EST Narrative Resulting Agency Comment Spec In Lab Leeann Mccord MD CHEMISTRY ORDERABLES Performing Organization Address [facility] Co de Phone Number [facility] [place] [address] * Complement, Total (07/17/2021 3:26 PM EST) Complement, Total 45 42 - 95 unit/mL [facility] Blood 07/17/2021 3:26 PM EST 07/17/2021 3:35 PM EST Narrative Resulting Agency Comment Spec In Lab Leeann Mccord MD CHEMISTRY ORDERABLES Performing Organization Address [facility] Co de Phone Number [facility] [place] [address] * Sedimentation rate (07/17/2021 3:26 PM EST) Sedimentation Rate Automated 3 2 - 37 mm/hr [facility] Comment: Effective May 10, 2019 new capillary photometric technology has resulted in a change in reference ranges. It is recommended that each ESR result be reviewed with its own age appropriate reference range. Blood 07/17/2021 3:26 PM EST 07/17/2021 3:35 PM EST Narrative Resulting Agency Comment Spec In Lab Leeann Mccord MD HEMATOLOGY ORDERABLE S Performing Organization Address [facility] Co de Phone Number [facility] [place] [address] * CRP, acute inflammation (07/17/2021 3:26 PM EST) C-Reactive Protein <3.0 <=4.9 mg/L [facility] Blood 07/17/2021 3:26 PM EST 07/17/2021 3:35 PM EST Narrative Resulting Agency Comment Spec In Lab Leeann Mccord MD CHEMISTRY ORDERABLES Performing Organization Address [facility] Co de Phone Number [facility] [place] [address] * (ABNORMAL) Comprehensive metabolic panel (non-fasting) (07/17/2021 3:26 PM EST) Glucose 93 65 - 199 mg/dL [facility] Comment:Diabetes: >=200 mg/d L plus symptoms Blood Urea Nitrogen 14 8 - 18 mg/dL [facility] Creatinine 0.72 0.70 - 1.20 mg/dL [facility] Sodium 137 135 - 145 mmol/L [facility] Potassium 4.0 3.5 - 5.0 mmol/L [facility] Comment: Please note: ??Patients with WBC >100,000 may have falsely elevated Potassium levels. ??For accurate Potassium quantification in these patients send serum separator tube (gold top) for subsequent determinations. ??Contact the Clinical Chemistry Laboratory if there are any questions. Chloride 101 98 - 107 mmol/L [facility] Carbon Dioxide 25 22 - 31 mmol/L [facility] Anion Gap 11 5 - 15 mmol/L [facility] Calcium 9.1 8.5 - 10.5 mg/dL [facility] Protein, Total 7.0 6.1 - 8.0 g/dL [facility] Albumin 4.6 3.2 - 5.2 g/dL [facility] Aspartate Aminotransferase 20 0 - 30 unit/L [facility] Alanine Aminotransferase 17 0 - 30 unit/L [facility] Alkaline Phosphatase 43 35 - 105 unit/L [facility] Bilirubin, Total <0.2(L) 0.2 - 1.3 mg/dL [facility] Est Glomerular Filtration Rate 100 >=60 mL/min/1. 73 m?? [facility] Comment: This patient? s [...] In Lab Leeann Mccord MD CHEMISTRY ORDERABLES [facility] [place] [address] * Urinalysis with reflex Culture (07/17/2021 3:22 PM EST) Glucose, Urine Dipstick Negative Negative mg/dL [facility] Protein, Urine Dipstick Negative Negative mg/dL [facility] Bilirubin, Urine Dipstick Negative Negative mg/dL [facility] Comment: Clinical correlation required for positive Urine Bilirubin results as false positive may occur with some drugs and drug related products. If a false positive is suspected a serum total bilirubin should be considered if clinically indicated. Urobilinogen, Urine Dipstick Normal Normal mg/dL [facility] pH, Urn (dipstick) 5.5 5.0 - 8.0 [facility] Blood, Urine Dipstick Negative Negative mg/dL [facility] Ketone, Urine Dipstick Negative Negative mg/dL [facility] Nitrite, Urine Dipstick Negative Negative [facility] Leukocytes, Urine Dipstick Negative Negative [facility] Appearance, Urine Dipstick Clear Clear [facility] Specific [place] Urine Automated 1.013 1.005 - 1.030 [facility] Color, Urine Dipstick Yellow Yellow [facility] Reflex to Culture No [facility] Urine NS 07/17/2021 3:22 PM EST 07/17/2021 3:33 PM EST Narrative Resulting Agency Comment Spec In Lab Leeann Mccord MD URINE ORDERABLES Performing Organization Address [facility]/ZIP Co de Phone Number [facility] [place] [address] * (ABNORMAL) Protein/Creatinine Ratio, urine (07/17/2021 3:22 PM EST) Creatinine, Urine 142 mg/dL [facility] Protein, Urine 14(H) 0 - 12 mg/dL [facility] Protein / Creatinine Ratio, Urine <0.1 ratio [facility] Urine 07/17/2021 3:22 PM EST 07/17/2021 3:33 PM EST Narrative Resulting Agency Comment Spec In Lab Leeann Mccord MD URINE ORDERABLES [facility] [place] [address] documented in this encounter Visit Diagnoses Diagnosis Undifferentiated connective tissue disease Unspecified diffuse connective tissue disease Hematochezia Blood in stool documented in this encounter Care Teams Press Maintainer Relationship Specialty Start Date End Date Geraldo Gracia DNP [address] [place] [address] PCP - General Family Medicine 07/17/21 09/30/22 documented as of this encounter
--- OUTSIDE RECORDS SUMMARY | 2024-06-23 18:21 | XMS_ITS | Encounter Summary ---
[place] [address] Care Team Providers Care Marble Installation Helper Name Role Phone None Primary Care Provider Unavailabl e Encounter Details Date Type Department Care Team (Latest Contact Info) Description 04/17/2021 3:00 PM EST TH Visit (TeleHealth) [place] [address] Arnaldo Mccabe DO Undifferentiated connective tissue disease; Fatigue, unspecified type; Arthralgia of both hands Social History Tobacco Use Types Packs/Day Years [...] as of this encounter Progress Notes * Arnaldo Mccabe DO - 04/17/2021 3:00 PM EST Rheumatology Outpatient Telehealth Follow Up Note PCP: Tamie Olivas is a 45 y.o. female PMH celiac disease, hysterectomy 2/2 abnormal uterine bleeding, migraines, allergies, subclinical hypothyroidism 2/2 alberto's thyroiditis, chronic pericardial effusion in 2018, stage I liver fibrosis possibly 2/2 autoimmune hepatitis, costochondritis, pectus excavatum, intersitial cystitis??who we are seeing for the continuing management of arthralgias, headache, and ARNULFO positivity possibly 2/2 UCTD. Rheum History: #UCTD #Possible Raynaud's, normal nailbed capillaries #Chronic pericardial effusion, incidental finding #Costochondritis?? #Anti-smooth [...] – [place] 1:320 speckled and cytoplasmic, COLBY negative, dsDNA negative, anti-mitochondrial negative, +anti-smooth muscle 1:160, C3 mildly low 86-88, normal C4, TPO 982, TTG negative, APS ab negative - 09/2020 episode of Raynaud's Interval History: - urgent visit for questions/updates - began having joint swelling in her hands, R>L at MCPs and DIPs with overlying erythema - did not try any medications for it - knees and elbows have been painful, can wake her up from sleep - came off duloxetine for a short bit, had worsening pain, went back on and noticed a difference inher discomfort - currently working with GI regarding abdominal pain and nausea - questions about vaccine ROS (positives in bold): Gen: no fevers, no chills, no night sweats Pulm: no SOB CV: no CP Abd: no abd pain, no nausea, no vomiting, no diarrhea MSK: see HPI Meds and Allergies: Reviewed in eDH Physical exam: Gen: well appearing, alert and oriented x 3, nad Skin: warm and dry, no rheumatologic rashes Joints: normal ROM throughout the upper and lower extremity joints Labs/Studies: Reviewed. Assessment/Plan: Karolina Olivas is a 45 y.o. female PMH celiac disease, hysterectomy 2/2 abnormal uterine bleeding, migraines, allergies, subclinical hypothyroidism 2/2 alberto's thyroiditis, chronic pericardial effusion in 2018, stage I liver fibrosis possibly 2/2 autoimmune hepatitis, costochondritis, pectus excavatum, intersitial cystitis??who we are seeing for the continuing management of arthralgias, headache, and ARNULFO positivity possibly 2/2 UCTD. It is difficult to evaluate synovitis via video, however there seems to be possible developing heberden and tim nodes with some overlying erythema? Elbow pain is likely epicondylitis, describes pain along lateral epicondyle with supination/pronation b/l. Discussed trying cock-up wrist splints.She has an appointment with me in 2 weeks and we decided to change to in person so I can better evaluate her joints. In the interim, advised to take naproxen at night in hopes to prevent waking up with pain. We also discussed COVID vaccine. Recommended to get the vaccine. She has hesitations, advised she can get one and monitor her reaction before she gets the second dose. Advised that we do not have data on how many patients get SLE flares after vaccination, and to what degree, but she could potentially note increase joint arthralgias. She was agreeable and will let me know if she has any further questions. Follow up in 2 weeks, as already scheduled. Change to in-person. Patient agreeable to telehealth visit. All questions answered for patient. Total video encounter time: 20 minutes Patient was discussed with Dr. Bradley. Arnaldo Mccabe DO Rheumatology Fellow Pager: [phone] * Luis Bradley MD - 04/17/2021 3:00 PM EST The patient's history and examination was reviewed with Dr. Mccabe, the rheumatology fellow on the day of the visit. I agree with her summary, findings, and plan. Luis Bradley MD Staff Rat Exterminator documented in this encounter Plan of Treatment Upcoming Encounters Date Type Department Care Team (Latest Contact Info) Description 06/30/2024 9:45 AM EST Hospital Encounter [place] [phone] Flor Velasco MD [facility] [place] [address] 06/30/2024 9:45 AM EST - 06/30/2024 10:45 AM EST Surgery [place] [phone] Flor Velasco MD [facility] [place] [address] COLONOSCOPY, DIAGNOSTIC (WRVU 3.26) 07/27/2024 8:00 AM EST TH Visit (TeleHealth) [place] [phone] Unruly Ramirez MD [facility] [place] [address] 08/03/2024 3:00 PM EST Office Visit Neurology at [address] [phone] Melvin Ramírez MD [facility] [place] [address] 08/25/2024 1:45 PM EDT Office [place] [phone] Keven Church MD [facility] [place] [address] Scheduled Procedures Name Priority Associated Diagnoses Date/Ti me COLONOSCOPY, DIAGNOSTIC (WRV U 3.26) Hematochezia 06/30/2024 9:45 AM EST documented as of this encounter Results * Comprehensive metabolic panel (non-fasting) (04/28/2021 11:38 AM EST) Glucose 86 65 - 199 mg/dL [facility] Comment:Diabetes: >=200 mg/d L plus symptoms Blood Urea Nitrogen 10 8 - 18 mg/dL [facility] Creatinine 0.78 0.70 - 1.20 mg/dL [facility] Sodium 139 135 - 145 mmol/L [facility] Potassium 4.1 3.5 - 5.0 mmol/L [facility] Comment: Please note: ??Patients with WBC >100,000 may have falsely elevated Potassium levels. ??For accurate Potassium quantification in these patients send serum separator tube (gold top) for subsequent determinations. ??Contact the Clinical Chemistry Laboratory if there are any questions. Chloride 104 98 - 107 mmol/L [facility] Carbon Dioxide 26 22 - 31 mmol/L [facility] Anion Gap 9 5 - 15 mmol/L [facility] Calcium 10.0 8.5 - 10.5 mg/dL [facility] Protein, Total 7.1 6.1 - 8.0 g/dL [facility] Albumin 4.7 3.2 - 5.2 g/dL [facility] Aspartate Aminotransferase 24 0 - 30 unit/L [facility] Alanine Aminotransferase 23 0 - 30 unit/L [facility] Alkaline Phosphatase 39 35 - 105 unit/L [facility] Bilirubin, Total 0.3 0.2 - 1.3 mg/dL [facility] Est Glomerular Filtration Rate 91 >=60 mL/min/1. 73 m?? [facility] Comment: This patient? s estimated glomerular [...] Bradley MD CHEMISTRY ORDERABLES Performing Organization Address City/[facility] Co de Phone Number [facility] [place] [address] * Sedimentation rate (04/28/2021 11:38 AM EST) Sedimentation Rate Automated 4 2 - 37 mm/hr [facility] Comment: Effective May 10, 2019 new capillary photometric technology has resulted in a change in reference ranges. It is recommended that each ESR result be reviewed with its own age appropriate reference range. Blood 04/28/2021 11:3 8 AM EST 04/28/2021 11:53 AM EST Narrative Resulting Agency Comment Spec In Lab Luis Bradley MD HEMATOLOGY ORDERABLE S Performing Organization Address City/[facility] Co de Phone Number [facility] [place] [address] documented in this encounter Visit Diagnoses Diagnosis Undifferentiated connective tissue disease Unspecified diffuse connective tissue disease Fatigue, unspecified type Arthralgia of both hands Hematochezia Blood in stool documented in this encounter Care Teams Marble Installation Helper Relationship Specialty Start Date End Date None None PCP - General 01/22/21 07/16/21 documented as of this encounter
--- OUTSIDE RECORDS SUMMARY | 2024-06-23 18:21 | XMS_ITS | Encounter Summary ---
Author Organization [facility] [place] [address] Care Team Providers Care Corn Grinder Name Role Phone None Primary Care Provider Unavailabl e Encounter Details Date Type Department Care Team (Late st Contact Info) Description 06/06/2021 Telephone [place] [address] Herlinda Hillman MD [facility] DR GASTROENTEROLOGY [place] [address] Social History Tobacco Use Types Packs/Day Years [...] encounter Miscellaneous Notes * Telephone Encounter - Herlinda Hillman MD - 06/06/2021 4:00 PM EST Called patient to discuss finding of small gallstones on US. She has not had pain in over 1 week after starting on omeprazole. Plan to continue omeprazole and she will notify me if pain returns. At that time can consider referral to surgery for biliary colic. documented in this encounter Plan of Treatment Upcoming Encounters Date Type Department Care Team (Latest Contact Info) Description 06/30/2024 9:45 AM EST Hospital Encounter Gastroenterology at [place] [phone] Flor Velasco MD [facility] [address] [place] [address] 06/30/2024 9:45 AM EST - 06/30/2024 10:45 AM EST Surgery Gastroenterology at [place] [phone] Flor Velasco MD [facility] [place] [address] COLONOSCOPY, DIAGNOSTIC (WRVU 3.26) 07/27/2024 8:00 AM EST TH Visit (TeleHealth) [place] [phone] Unruly Ramirez MD [facility] DR GASTROENTEROLOGY [place] [address] 08/03/2024 3:00 PM EST Office Visit Neurology at [address] [phone] Melvin Ramírez MD [facility] [address] 08/25/2024 1:45 PM EDT Office [place] [phone] Keven Church MD [facility] [place]UMAT[facility] [place] [address] Scheduled Procedures Name Priority Associated Diagnoses Date/Ti me COLONOSCOPY, DIAGNOSTIC (WRV U 3.26) Hematochezia 06/30/2024 9:45 AM EST documented as of this encounter Visit Diagnoses Not on filedocumented in this encounter Care Teams Corn Grinder Relationship Specialty Start Date End Date None None PCP - General 01/22/21 07/16/21 documented as of this encounter
--- OUTSIDE RECORDS SUMMARY | 2024-06-23 18:21 | XMS_ITS | Encounter Summary ---
[place] [address] Care Team Providers Care Cashier Wrapper Name Role Phone Geraldo Gracia DNP Primary Care Provider Encounter Details Date Type Department Care Team (Late st Contact Info) Description 10/07/2021 Telephone [place] [phone] July Herr Social History Tobacco Use Types Packs/Day Years [...] encounter Miscellaneous Notes * Telephone Encounter - July Herr - 10/07/2021 2:02 PM EDT [facility] calls to ask that auths be sent over for the echo and CT scan ordered by dr white. Pt has bcbs. documented in this encounter Plan of Treatment Upcoming Encounters Date Type Department Care Team (Latest Contact Info) Description 06/30/2024 9:45 AM EST Hospital Encounter Gastroenterology at [place] [phone] Flor Velasco MD [facility] [place] [address] 06/30/2024 9:45 AM EST - 06/30/2024 10:45 AM EST Surgery Gastroenterology at [place] [phone] Flor Velasco MD [facility] [place] [address] COLONOSCOPY, DIAGNOSTIC (WRVU 3.26) 07/27/2024 8:00 AM EST TH Visit (TeleHealth) Gastroenterology at [place] [phone] Unruly Ramirez MD [facility] DR [place] [address] 08/03/2024 3:00 PM EST Office Visit Neurology at [address] [phone] Melvin Ramírez MD [facility] [place] [address] [place] [address] 08/25/2024 1:45 PM EDT Office [place] [phone] Keven Church MD [facility] [place] [address] Scheduled Procedures Name Priority Associated Diagnoses Date/Ti me COLONOSCOPY, DIAGNOSTIC (WRV U 3.26) Hematochezia 06/30/2024 9:45 AM EST documented as of this encounter Visit Diagnoses Not on filedocumented in this encounter Care Teams Cashier Wrapper Relationship Specialty Start Date End Date Geraldo Gracia DNP [address] [place] [address] PCP - General Family Medicine 07/17/21 09/30/22 documented as of this encounter
--- OUTSIDE RECORDS SUMMARY | 2024-06-23 18:21 | XMS_ITS | Encounter Summary ---
Author Organization [facility] [place] [address] Care Team Providers Care Public Health Director Name Role Phone None Primary Care Provider Unavailabl e Encounter Details Date Type Department Care Team (Late st Contact Info) Description 04/22/2021 Orders Only [place] [phone] Arnaldo Mccabe, Arthralgia of both hands Social History Tobacco [...] 9:45 AM EST Hospital Encounter [place] [phone] Flor Velasco MD [facility] [address] 06/30/2024 9:45 AM EST - 06/30/2024 10:45 AM EST Surgery Gastroenterology at [place] [phone] Flor Velasco MD [facility] [place] [address] COLONOSCOPY, DIAGNOSTIC (WRVU 3.26) 07/27/2024 8:00 AM EST TH Visit (TeleHealth) Gastroenterology at [place] [phone] Unruly Ramirez MD [facility] [place] [address] 08/03/2024 3:00 PM EST Office Visit Neurology at [address] [phone] Melvin Ramírez MD [facility] [place] [address] 08/25/2024 1:45 PM EDT Office Visit [place] [phone] Keven Church MD [facility] [address] Scheduled Procedures Name Priority Associated Diagnoses Date/Ti me COLONOSCOPY, DIAGNOSTIC (WRV U 3.26) Hematochezia 06/30/2024 9:45 AM EST documented as of this encounter Results * XR Hand Min 3 views Bilat (Generic) (04/28/2021 11:26 AM EST) Anatomical Region Laterality Modality Hand Bilateral Digital Radiogra phy Impressions 04/28/2021 3:45 PM EST No radiographic evidence of inflammatory arthritis. No radiographic evidence of osteoarthropathy. I have personally reviewed the image(s) and the resident's interpretation and agree with the findings, Aliya Huang MD at 04/28/2021 3:45 PM Thank you for letting us participate in the care of this patient. ??If you are a health care provider and have any questions regarding this report, please contact the number below. ??For patients who have questions please contact the health post acute care nurse that requested your imaging first. ? Electronically signed by: Aliya Huang MD, [facility] ([phone]), at 04/28/2021 3:45 PM Narrative 04/28/2021 3:45 PM EST EXAMINATION: XR HAND MIN 3 VIEWS BILAT (GENERIC) CLINICAL HISTORY: joint pain, ?swelling, evaluate for erosive disease vs OA (as entered by ordering provider in the order requisition) TECHNIQUE: PA, oblique, lateral and ball-catcher's views of bilateral hands COMPARISON: None FINDINGS: No acute fracture or malalignment. Joint spaces are preserved throughout the carpal bones, metacarpal phalangeal joints, and interphalangeal joints. No erosive change or osteophyte formation. There is normal mineralization. No focal soft tissue swelling. No soft tissue calcification or soft tissue tophi. Procedure Note Aliya Huang MD - 04/28/2021 EXAMINATION: XR HAND MIN 3 VIEWS BILAT (GENERIC) CLINICAL HISTORY: joint pain, ?swelling, evaluate for erosive disease vsOA (as entered by ordering provider in the order requisition) TECHNIQUE: PA, oblique, lateral and ball-catcher's views of bilateral hands COMPARISON: None FINDINGS: No acute fracture or malalignment. Joint spaces are preserved throughoutthe carpal bones, metacarpal phalangeal joints, and interphalangeal joints.No erosive change or osteophyte formation. There is normal mineralization. Nofocal soft tissue swelling. No soft tissue calcification or soft tissue tophi. IMPRESSION No radiographic evidence of inflammatory arthritis. No radiographicevidence of osteoarthropathy. I have personally reviewed the image(s) and the resident's interpretationand agree with the findings, Aliya Huang MD at 04/28/2021 3:45 PM Thank you for letting us participate in the care of this patient. If youare a health care provider and have any questions regarding this report,please contact the number below. For patients who have questions please contactthe health post acute care nurse that requested your imaging first. Electronically signed by: Aliya Huang MD, [facility]([phone]), at 04/28/2021 3:45 PM Leeann Mccord MD IMG DX ORDERABLES documented in this encounter Visit Diagnoses Diagnosis Arthralgia of both hands Arthralgia of both hands Hematochezia Blood in stool documented in this encounter Care Teams Public Health Director Relationship Specialty Start Date End Date None None PCP - General 01/22/21 07/16/21 documented as of this encounter
--- OUTSIDE RECORDS SUMMARY | 2024-06-23 18:21 | XMS_ITS | Encounter Summary ---
[place] [address] Care Team Providers Care Counter Stacker Name Role Phone Geraldo Gracia [facility] Primary Care Provider Reason for Visit * Reason Onset Date Comments Medication Refill 09/19/2021 Encounter Details Date Type Department Care Team (Late st Contact Info) Description 09/19/2021 [place] [phone] Arnaldo Mccabe, Social History Tobacco Use Types Packs/Day Years [...] encounter Miscellaneous Notes * Telephone Encounter - Megan Guadarrama LPN - 09/25/2021 7:39 AM EDT Requested Prescriptions Pending Prescriptions Disp Refills ??? hydrOXYchloroQUINE (Plaquenil) 200 mg Tablet 60 tablet 12 Sig: Take 1 tablet by mouth daily. Indications: systemic lupus erythematosus, an autoimmune disease Last office visit: 09/18/2021 no future appt's scheduled Last refill: 10/08/2020 documented in this encounter Plan of Treatment Upcoming Encounters Date Type Department Care Team (Latest Contact Info) Description 06/30/2024 9:45 AM EST Hospital Encounter [place] [phone] Flor Velasco MD [facility] [place] [address] 06/30/2024 9:45 AM EST - 06/30/2024 10:45 AM EST Surgery Gastroenterology at [place] [phone] Flor Velasco MD [facility] [place] [address] COLONOSCOPY, DIAGNOSTIC (WRVU 3.26) 07/27/2024 8:00 AM EST TH Visit (TeleHealth) [place] [phone] Unruly Ramirez MD [facility] [place] [address] 08/03/2024 3:00 PM EST Office Visit Neurology at [address] [phone] Melvin Ramírez MD [facility] DR [address] [place] [address] 08/25/2024 1:45 PM EDT Office [place] [phone] Keven Church MD [facility] [place] [address] Scheduled Procedures Name Priority Associated Diagnoses Date/Ti me COLONOSCOPY, DIAGNOSTIC (WRV U 3.26) Hematochezia 06/30/2024 9:45 AM EST documented as of this encounter Visit Diagnoses Not on filedocumented in this encounter Care Teams Counter Stacker Relationship Specialty Start Date End Date Geraldo Gracia DNP [address] [place] [address] PCP - General Family Medicine 07/17/21 09/30/22 documented as of this encounter
--- OUTSIDE RECORDS SUMMARY | 2024-06-23 18:21 | XMS_ITS | Encounter Summary ---
[place] [address] Care Team Providers Care Saxophone Assembler Name Role Phone Geraldo Gracia DNP Primary Care Provider Encounter Details Date Type Department Care Team (Late st Contact Info) Description 10/06/2021 [place] [phone] Alcira Pete RN Social History Tobacco Use Types Packs/Day [...] encounter Miscellaneous Notes * Telephone Encounter - Alcira Pete RN - 10/06/2021 2:26 PM EDTSummary: Lab results The patient called to ask if the Provider has received the lab results as she was notified they were completed/resulted. Message sent to Provider and leather parts matcher to call, request latest results. documented in this encounter Plan of Treatment Upcoming Encounters Date Type Department Care Team (Latest Contact Info) Description 06/30/2024 9:45 AM EST Hospital Encounter Gastroenterology at [place] [phone] Flor Velasco MD [facility] [place] [address] 06/30/2024 9:45 AM EST - 06/30/2024 10:45 AM EST [place] [phone] Flor Velasco MD [facility] [place] [address] COLONOSCOPY, DIAGNOSTIC (WRVU 3.26) 07/27/2024 8:00 AM EST TH Visit (TeleHealth) Gastroenterology at [place] [phone] Unruly Ramirez MD [facility] GASTROENTEROLOG[place] [address] 08/03/2024 3:00 PM EST Office Visit Neurology at [address] [phone] Melvin Ramírez MD [facility] [address] [place] [address] 08/25/2024 1:45 PM EDT Office [place] [phone] Keven Church MD [facility] [place]UMAT[place] [address] Scheduled Procedures Name Priority Associated Diagnoses Date/Ti me COLONOSCOPY, DIAGNOSTIC (WRV U 3.26) Hematochezia 06/30/2024 9:45 AM EST documented as of this encounter Visit Diagnoses Not on filedocumented in this encounter Care Teams Saxophone Assembler Relationship Specialty Start Date End Date Geraldo Gracia DNP [address] [place] [address] PCP - General Family Medicine 07/17/21 09/30/22 documented as of this encounter
--- OUTSIDE RECORDS SUMMARY | 2024-06-23 18:21 | XMS_ITS | Encounter Summary ---
[place] [address] Care Team Providers Care Survey Party Chief Name Role Phone None Primary Care Provider Unavailabl e Reason for Visit * Reason Onset Date Comments TeleHealth 03/25/2021 Encounter Details Date Type Department Care Team (Late st Contact Info) Description 03/25/2021 Telephone Neurology at [address] [phone] Elizabeth Banerjee APRN [facility] [place] [place] [address] TeleHealth Social History Tobacco Use Types Packs/Day Years [...] encounter Miscellaneous Notes * Telephone Encounter - Karely Packer RN - 03/25/2021 1:12 PM EDT Spoke to this patient??by phone to review??their??medications and allergies prior to their??upcoming tele-appointment with the Neurology??provider. Medications and allergies reviewed, verified and updated as needed. documented in this encounter Plan of Treatment Upcoming Encounters Date Type Department Care Team (Latest Contact Info) Description 06/30/2024 9:45 AM EST Hospital Encounter Gastroenterology at [place] [phone] Flor Velasco MD [facility] [place] [address] 06/30/2024 9:45 AM EST - 06/30/2024 10:45 AM EST Surgery Gastroenterology at [place] [phone] Flor Velasco MD [facility] [place] [address] COLONOSCOPY, DIAGNOSTIC (WRVU 3.26) 07/27/2024 8:00 AM EST TH Visit (TeleHealth) Gastroenterology at [place] [phone] Unruly Ramirez MD [facility] [place] [address] 08/03/2024 3:00 PM EST Office Visit Neurology at [address] [phone] Melvin Ramírez MD [facility] [place] [address] 08/25/2024 1:45 PM EDT Office Visit Rheumatology at [place] [phone] Keven Church MD [facility] [place] [address] Scheduled Procedures Name Priority Associated Diagnoses Date/Ti me COLONOSCOPY, DIAGNOSTIC (WRV U 3.26) Hematochezia 06/30/2024 9:45 AM EST documented as of this encounter Visit Diagnoses Not on filedocumented in this encounter Care Teams Survey Party Chief Relationship Specialty Start Date End Date None None PCP - General 01/22/21 07/16/21 documented as of this encounter
--- OUTSIDE RECORDS SUMMARY | 2024-06-23 18:21 | XMS_ITS | Encounter Summary ---
[place] [address] Care Team Providers Care Batch Mixing Truck Driver Name Role Phone None Primary Care Provider Unavailabl e Reason for Visit * Reason Onset Date Comments Reminder Appointment 05/08/2021 Encounter Details Date Type Department Care Team (Late st Contact Info) Description 05/08/2021 Telephone [place] [address] Laly Simmons CCMA Reminder Appointment Social History Tobacco Use Types Packs/Day [...] encounter Miscellaneous Notes * Telephone Encounter - Laly Simmons CCMA - 05/08/2021 8:27 AM EST Called patient to review medications and allergies for their upcoming gastroenterology Type of Appointment: Telehealth appointment. Reach Patient during MA Check: No, Left Message Was unable to reach patient before appointment time Notes for the provider: Notes for the nurse: documented in this encounter Plan of Treatment Upcoming Encounters Date Type Department Care Team (Latest Contact Info) Description 06/30/2024 9:45 AM EST Hospital Encounter Gastroenterology at [place] [phone] Flor Velasco MD [facility] [place] [address] 06/30/2024 9:45 AM EST - 06/30/2024 10:45 AM EST [place] [phone] Flor Velasco MD [facility] [place] [address] COLONOSCOPY, DIAGNOSTIC (WRVU 3.26) 07/27/2024 8:00 AM EST TH Visit (TeleHealth) Gastroenterology at [place] [phone] Unruly Ramirez MD [facility] [place] [address] 08/03/2024 3:00 PM EST Office Visit Neurology at [address] [phone] Melvin Ramírez MD [facility] [place] [address] 08/25/2024 1:45 PM EDT Office [place] [address] Keven Church MD [facility] [address] Scheduled Procedures Name Priority Associated Diagnoses Date/Ti me COLONOSCOPY, DIAGNOSTIC (WRV U 3.26) Hematochezia 06/30/2024 9:45 AM EST documented as of this encounter Visit Diagnoses Not on filedocumented in this encounter Care Teams Batch Mixing Truck Driver Relationship Specialty Start Date End Date None None PCP - General 01/22/21 07/16/21 documented as of this encounter
--- OUTSIDE RECORDS SUMMARY | 2024-06-23 18:21 | XMS_ITS | Encounter Summary ---
[place] [address] Care Team Providers Care Data Processing Manager Name Role Phone Geraldo Gracia DNP Primary Care Provider Reason for Visit * Reason Comments Medication Refill Encounter Details Date Type Department Care Team (Late st Contact Info) Description 08/28/2021 Refill Neurology at [address] [phone] Elizabeth Banerjee APRN [facility] [place] [address] Social History Tobacco Use Types Packs/Day Years [...] 9:45 AM EST Hospital En[place] [address] Flor Velasco MD [facility] [place] [address] 06/30/2024 9:45 AM EST - 06/30/2024 10:45 AM EST Surgery Gastroenterology at [place] [phone] Flor Velasco MD [facility] [place] [address] COLONOSCOPY, DIAGNOSTIC (WRVU 3.26) 07/27/2024 8:00 AM EST TH Visit (TeleHealth) [place] [address] Unruly Ramirez MD [facility] [place] [address] 08/03/2024 3:00 PM EST Office Visit Neurology at [address] [phone] Melvin Ramírez MD [facility] [address] 08/25/2024 1:45 PM EDT Office Visit Rheumatology at [place] [phone] Keven Church MD [facility] [address] Scheduled Procedures Name Priority Associated Diagnoses Date/Ti me COLONOSCOPY, DIAGNOSTIC (WRV U 3.26) Hematochezia 06/30/2024 9:45 AM EST documented as of this encounter Visit Diagnoses Not on filedocumented in this encounter Care Teams Data Processing Manager Relationship Specialty Start Date End Date Geraldo Gracia DNP [facility] [address] [place] [address] PCP - General Family Medicine 07/17/21 09/30/22 documented as of this encounter
--- OUTSIDE RECORDS SUMMARY | 2024-06-23 18:21 | XMS_ITS | Encounter Summary ---
[place] [address] Care Team Providers Care Wet Pour Supervisor Name Role Phone None Primary Care Provider Unavailabl e Reason for Visit * Reason Onset Date Comments Medication Refill Medication Refill 04/02/2021 Encounter Details Date Type Department Care Team (Late st Contact Info) Description 04/02/2021 Refill Neurology at [address] [phone] Elizabeth Banerjee APRN [facility] [place] [address] Social History Tobacco Use Types Packs/Day Years [...] 9:45 AM EST Hospital En[place] [address] Flor Velasco MD [facility] [place] [address] 06/30/2024 9:45 AM EST - 06/30/2024 10:45 AM EST Surgery Gastroenterology at [place] [phone] Flor Velasco MD [facility] [place] [address] COLONOSCOPY, DIAGNOSTIC (WRVU 3.26) 07/27/2024 8:00 AM EST TH Visit (TeleHealth) Gastroenterology at [place] [phone] Unruly Ramirez MD [facility] [place] [address] 08/03/2024 3:00 PM EST Office Visit Neurology at [address] [phone] Melvin Ramírez MD [facility] [place] [address] 08/25/2024 1:45 PM EDT Office [place] [phone] Keven Church MD [facility] [place] [address] Scheduled Procedures Name Priority Associated Diagnoses Date/Ti me COLONOSCOPY, DIAGNOSTIC (WRV U 3.26) Hematochezia 06/30/2024 9:45 AM EST documented as of this encounter Visit Diagnoses Not on filedocumented in this encounter Care Teams Wet Pour Supervisor Relationship Specialty Start Date End Date None None PCP - General 01/22/21 07/16/21 documented as of this encounter
--- OUTSIDE RECORDS SUMMARY | 2024-06-23 18:21 | XMS_ITS | Encounter Summary ---
Author Organization [facility] Address [facility] [place] [address] Care Team Providers Care Signal Worker Helper Name Role Phone Geraldo Gracia [facility] Primary Care Provider Encounter Details Date Type Department Care Team (Late st Contact Info) Description 09/24/2021 Orders [place] [phone] Arnaldo Mccabe DO ARNULFO positive; Raynaud's phenomenon without gangrene Social History Tobacco [...] 9:45 AM EST Hospital Encounter [place] [phone] Flor Velasco MD [facility] DR [place] [address] 06/30/2024 9:45 AM EST - 06/30/2024 10:45 AM EST Surgery Gastroenterology at [place] [phone] Flor Velasco MD [facility] [place] [address] COLONOSCOPY, DIAGNOSTIC (WRVU 3.26) 07/27/2024 8:00 AM EST TH Visit (TeleHealth) Gastroenterology at [place] [phone] Unruly Ramirez MD [facility] GASTROENTER[place] [address] 08/03/2024 3:00 PM EST Office Visit Neurology at [address] [phone] Melvin Ramírez MD [facility] [address] [place] [address] 08/25/2024 1:45 PM EDT Office Visit Rheumatology at [place] [phone] Keven Church MD [facility] [place] [address] Scheduled Procedures Name Priority Associated Diagnoses Date/Ti me COLONOSCOPY, DIAGNOSTIC (WRV U 3.26) Hematochezia 06/30/2024 9:45 AM EST documented as of this encounter Visit Diagnoses Diagnosis ARNULFO positive Other and unspecified nonspecific immunological findings Raynaud's phenomenon without gangrene Hematochezia Blood in stool documented in this encounter Care Teams Signal Worker Helper Relationship Specialty Start Date End Date Geraldo Gracia DNP [address] [place] [address] PCP - General Family Medicine 07/17/21 09/30/22 documented as of this encounter
--- OUTSIDE RECORDS SUMMARY | 2024-06-23 18:21 | XMS_ITS | Encounter Summary ---
Author Organization [facility] [place] [address] Care Team Providers Care Field Property Loss Specialist Name Role Phone None Primary Care Provider Unavailabl e Encounter Details Date Type Department Care Team (Latest Contact Info) Description 05/08/2021 10:00 AM EST TH Visit (TeleHealth) [place] [address] Herlinda Hillman MD [facility] [place] [address] Chronic abdominal pain Social History Tobacco Use [...] Progress Notes * Herlinda Hillman MD - 05/08/2021 10:00 AM EST [facility] Division of Gastroenterology and Hepatology Outpatient Follow-up Visit History of Present Illness: Karolina Olivas is a 45 y.o. patient with a??past medical history significant for??celiac disease, s/p hysterectomy for abnormal uterine bleeding, migraines,??prior episode of pericarditis and costochondritis,??who was referred to GI in July 2020 for??a positive ARNULFO (1:320) and smooth muscle Ab (1:160). Interval History: - Last seen in clinic in 02/2021, plan at that time for LFT monitoring in 03/2021 for +smooth muscle antibody, miralax and metamucil for likely IBS-M - LFTs done 04/28/2021 remain normal - TTG normal, TSH negative - Multiple messages regarding continued abdominal pain and nausea - Currently on elavil 12.5 mg daily, has not been on PPI - Most bothersome symptom is nausea which she has every morning and goes away after 20-30 min - Denies heartburn -Endorses abdominal pain, gets three times/week and is intermittent, throbbing pain, not sharp - No fevers or chills, no weight loss - No new medications - Has mixed diarrhea and constipation, often goes several days without a BM then a few days with multiple loose BMs Review of Systems: Constitutional: No weight loss [...] CIS - HANDS GET NUMB Physical Examination: There were no vitals taken for this visit. General: Pleasant, cooperative, no acute distress HEENT: NC/AT, anicteric sclera, MMM Chest: CTAB, no wheeze, rale or rhonchi CVS: Regular rate and rhythm, normal s1/s2, No murmurs, rubs or gallops ABD: soft, normoactive bowel sounds, non-tender, non-distended, no hepatosplenomegaly appreciated Extremities: Warm and well perfused. No edema Skin: No rash or lesion, no jaundice Neuro: Grossly intact, moves all extremities. No asterixis Labs: Reviewed in EDH/Scan Docs Lab Results Component Value Date WBC 5.0 04/28/2021 HGB 13.1 04/28/2021 HCT 37.8 04/28/2021 MCV 92.6 04/28/2021 PLATELET 214 04/28/2021 Chemistry Component Value Date/Time NA 139 04/28/2021 1138 K 4.1 04/28/2021 1138 CL 104 04/28/2021 1138 CO2 26 04/28/2021 1138 BUN 10 04/28/2021 1138 CREATININE 0.78 04/28/2021 1138 Component Value Date/Time CALCIUM 10.0 04/28/2021 1138 ALKPHOS 39 04/28/2021 1138 AST 24 04/28/2021 1138 ALT 23 04/28/2021 1138 BILITOT 0.3 04/28/2021 1138 Past Endoscopy and relevant studies: EGD 08/26/20: [...] remain normal and we can continue with b2ommdo monitoring, Her symptoms are most consistent with dyspepsia, 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 Will plan to obtain RUQ US to rule out gallbladder disease as the source of her pain. Also recommended initiation of a PPI. Will also recommend increasing her Elavil dose to 25 mg nightly as a treatment for functional dyspepsia. RECOMMENDATIONS: - Initiate PPI for functional dyspepsia - RUQ to rule out biliary colic (will get this done at [facility]) - Continue LFTs every 3 months, next due 07/2021 - Increase Amitriptyline to 25 mg nightly Follow up 3-4 months This case was discussed with Dr. Abhinav Hillman MD Fellow in Gastroenterology [place] [address] P: [phone] F: [phone] CC None None documented in this encounter Plan of Treatment Upcoming Encounters Date Type Department Care Team (Latest Contact Info) Description 06/30/2024 9:45 AM EST Hospital Encounter [place] [address] Flor Velasco MD [facility] [place] [place] [address] 06/30/2024 9:45 AM EST - 06/30/2024 10:45 AM EST Surgery [place] [address] Flor Velasco MD [facility] [place] [address] COLONOSCOPY, DIAGNOSTIC (WRVU 3.26) 07/27/2024 8:00 AM EST TH Visit (TeleHealth) Gastroenterology at [place] [phone] Unruly Ramirez MD [facility] [place] [address] 08/03/2024 3:00 PM EST Office Visit Neurology at [address] [phone] Melvin Ramírez MD [facility] [place] [address] 08/25/2024 1:45 PM EDT Office [place] [phone] Keven Church MD [facility] [place] [address] Scheduled Procedures Name Priority Associated Diagnoses Date/Ti me COLONOSCOPY, DIAGNOSTIC (WRV U 3.26) Hematochezia 06/30/2024 9:45 AM EST documented as of this encounter Visit Diagnoses Diagnosis Chronic abdominal pain Abdominal pain, unspecified site Hematochezia Blood in stool documented in this encounter Care Teams Field Property Loss Specialist Relationship Specialty Start Date End Date None None PCP - General 01/22/21 07/16/21 documented as of this encounter
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
--- OUTSIDE RECORDS SUMMARY | 2024-06-23 18:21 | XMS_ITS | Encounter Summary ---
[place] [address] Care Team Providers Care Director Design Name Role Phone None Primary Care Provider Unavailabl e Reason for Visit * Reason Onset Date Comments TeleHealth 07/15/2021 Encounter Details Date Type Department Care Team (Late st Contact Info) Description 07/15/2021 Telephone Neurology at [address] [address] Elizabeth Banerjee APRN [facility] [address] TeleHealth Social History Tobacco Use Types Packs/Day [...] Telephone Encounter - Karely Packer RN - 07/15/2021 10:55 AM EST Spoke to this patient by phone to review their medications and allergies prior to their upcoming tele-appointment with the Neurology provider. Medications and allergies reviewed, verified and updatedas needed. documented in this encounter Plan of Treatment Upcoming Encounters Date Type Department Care Team (Latest Contact Info) Description 06/30/2024 9:45 AM EST Hospital Encounter [place] [phone] Flor Velasco MD [facility] [place] [address] 06/30/2024 9:45 AM EST - 06/30/2024 10:45 AM EST Surgery Gastroenterology at [place] [phone] Flor Velasco MD [facility] [address] COLONOSCOPY, DIAGNOSTIC (WRVU 3.26) 07/27/2024 8:00 AM EST TH Visit (TeleHealth) [place] [address] Unruly Ramirez MD [facility] [place] [address] 08/03/2024 3:00 PM EST Office Visit Neurology at [address] [phone] Melvin Ramírez MD [facility] [place] [address] 08/25/2024 1:45 PM EDT Office Visit [place] [phone] Keven Church MD [facility] [address] Scheduled Procedures Name Priority Associated Diagnoses Date/Ti me COLONOSCOPY, DIAGNOSTIC (WRV U 3.26) Hematochezia 06/30/2024 9:45 AM EST documented as of this encounter Visit Diagnoses Not on filedocumented in this encounter Care Teams Director Design Relationship Specialty Start Date End Date None None PCP - General 01/22/21 07/16/21 documented as of this encounter
--- OUTSIDE RECORDS SUMMARY | 2024-06-23 18:21 | XMS_ITS | Encounter Summary ---
Author Organization [facility] Address [facility] [place] [address] Care Team Providers Care [employer] Name Role Phone None Primary Care Provider Unavailabl e Encounter Details Date Type Department Care Team (Latest Contact Info) Description 04/28/2021 10:56 AM EST - 04/28/2021 11:59 PM EST Hospital Encounter XRay at [address] [place] [address] Leeann Mccord MD Arthralgia of both hands Discharge Disposition: Home Social History Tobacco Use [...] Sig Dispensed Refills Start Date End Date melatonin 3 mg Tablet Take 3 mg by mouth nightly. traZODone (Desyrel) 50 mg Tablet Take 25 mg by mouth nightly. magnesium 250 mg Tablet Take 500 mg by mouth nightly. amitriptyline (Elavil) 25 mg Tablet Take 12.5 mg by mouth nightly. 0 10/17/2015 galcanezumab-gnlm (Emgality Pen) 120 mg/mL Pen Injector Inject 120 mg subcutaneously every 28 days. 1 mL 5 03/07/2021 08/28/2021 levothyroxine (Synthroid) 50 mcg Tablet Take 1 tablet by mouth daily. 60 tablet 5 10/21/2020 10/20/2021 hydrOXYchloroQUINE (Plaquenil) 200 mg TabletIndications:sys temic lupus erythematosus Take 1 tablet by mouth daily. Indications: systemic lupus erythematosus, an autoimmune disease 60 tablet 12 10/08/2020 09/19/2021 naproxen sodium (ANAPROX) 550 mg TabletIndications:Fer jass [...] 9:45 AM EST Hospital Encounter [place] [address] Flor Velasco MD [facility] [place] [address] 06/30/2024 9:45 AM EST - 06/30/2024 10:45 AM EST Surgery [place] [phone] Flor Velasco MD [facility] [place] [address] COLONOSCOPY, DIAGNOSTIC (WRVU 3.26) 07/27/2024 8:00 AM EST Visit (TeleHealth) [place] [address] Unruly Ramirez MD [facility] [place] [address] 08/03/2024 3:00 PM EST Office Visit Neurology at [address] [address] Melvin Ramírez MD [facility] [place] [address] 08/25/2024 1:45 PM EDT Office [place] [phone] Keven Church MD [facility] [address] Scheduled Procedures Name Priority Associated Diagnoses Date/Ti me COLONOSCOPY, DIAGNOSTIC (WRV U 3.26) Hematochezia 06/30/2024 9:45 AM EST documented as of this encounter Procedures Procedure Name Priority Date/Time Associated Diagnosis Comments XR HAND MIN 3 VIEWS BILAT Routine 04/28/2021 11:26 AM EST Arthralgia of both hands documented in this encounter Results * XR Hand Min [...] questions please contact the health patient care that requested your imaging first. ? Narrative 04/28/2021 3:45 PM EST EXAMINATION: XR [...] have questions please contactthe health patient care that requested your imaging first. Leeann Mccord MD IMG DX ORDERABLES documented in this encounter Visit Diagnoses Diagnosis Arthralgia of both hands Hematochezia Blood in stool documented in this encounter Care Teams [employer] Relationship Specialty Start Date End Date None None PCP - General 01/22/21 07/16/21 documented as of this encounter
--- OUTSIDE RECORDS SUMMARY | 2024-06-23 18:21 | XMS_ITS | Encounter Summary ---
Author Organization [facility] [place] [address] Care Team Providers Care Commercial Field Inspector Name Role Phone Geraldo Gracia [facility] Primary Care Provider Reason for Visit * Reason Onset Date Comments Medication Refill 10/20/2021 Encounter Details Date Type Department Care Team (Late st Contact Info) Description 10/20/2021 [place] [address] Miguel Angel Cooley MD [facility] [place] [address] Social History Tobacco Use Types Packs/Day Years [...] 9:45 AM EST Hospital Encounter [place] [phone] Flor Velasco MD [facility] [place] [address] 06/30/2024 9:45 AM EST - 06/30/2024 10:45 AM EST Surgery Gastroenterology at [place] [phone] Flor Velasco MD [facility] [place] [address] COLONOSCOPY, DIAGNOSTIC (WRVU 3.26) 07/27/2024 8:00 AM EST TH Visit (TeleHealth) [place] [address] Unruly Ramirez MD [facility] [place] [address] 08/03/2024 3:00 PM EST Office Visit Neurology at [address] [phone] Melvin Ramírez MD [facility] [address] 08/25/2024 1:45 PM EDT Office Visit Rheumatology at [place] [phone] Keven Church MD [facility] [place] [address] Scheduled Procedures Name Priority Associated Diagnoses Date/Ti me COLONOSCOPY, DIAGNOSTIC (WRV U 3.26) Hematochezia 06/30/2024 9:45 AM EST documented as of this encounter Visit Diagnoses Not on filedocumented in this encounter Care Teams Commercial Field Inspector Relationship Specialty Start Date End Date Geraldo Gracia DNP [facility] [address] [place] [address] PCP - General Family Medicine 07/17/21 09/30/22 documented as of this encounter
--- OUTSIDE RECORDS SUMMARY | 2024-06-23 18:21 | XMS_ITS | Encounter Summary ---
[place] [address] Care Team Providers Care Retail Event Assistant Name Role Phone Geraldo Gracia DNP Primary Care Provider Encounter Details Date Type Department Care Team (Late st Contact Info) Description 10/07/2021 Orders [place] [address] Arnaldo Mccabe DO CREST (calcinosis, Raynaud's phenomenon, esophageal dysfunction, [...] Progress Notes * Arnaldo Mccabe DO - 10/07/2021 11:32 AM EDT I called and spoke with Karolina regarding her most recent labs. Her latest ARNULFO has changed pattern to centromere, 1:320. Anti-centromere antibody done locally (sent to [place]) is mildly elevated at 2.5. 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 She is on HCQ 200mg daily. Started nifedipine with improvement in her Raynaud symptoms. At this point, despite her mildly low centromere antibody, I will treat her as such. I have orderedTTE, CT chest, and PFTs to be completed, which she will be doing locally. TTE and PFTs to be done yearly, CT chest every 2 years. Plan was discussed with the patient. documented in this encounter Plan of Treatment Upcoming Encounters Date Type Department Care Team (Latest Contact Info) Description 06/30/2024 9:45 AM EST Hospital Encounter [place] [address] Flor Velasco MD [facility] [place] [address] 06/30/2024 9:45 AM EST - 06/30/2024 10:45 AM EST [place] [address] Flor Velasco MD [facility] [place] [address] COLONOSCOPY, DIAGNOSTIC (WRVU 3.26) 07/27/2024 8:00 AM EST TH Visit (TeleHealth) [place] [address] Unruly Ramirez MD [facility] [place] [address] 08/03/2024 3:00 PM EST Office Visit Neurology at [address] [address] Melvin Ramírez MD [facility] [place] [address] 08/25/2024 1:45 PM EDT Office [place] [address] Keven Church MD [facility] [place] [address] Scheduled Procedures Name Priority Associated Diagnoses Date/Ti md COLONOSCOPY, DIAGNOSTIC (WRV U 3.26) Hematochezia 06/30/2024 9:45 AM EST documented as of this encounter Visit Diagnoses Diagnosis CREST (calcinosis, Raynaud's phenomenon, esophageal dysfunction, sclerodactyly, telangiectasia) Systemic sclerosis Hematochezia Blood in stool documented in this encounter Care Teams Retail Event Assistant Relationship Specialty Start Date End Date Geraldo Gracia DNP [address] [place] [address] PCP - General Family Medicine 07/17/21 09/30/22 documented as of this encounter
--- OUTSIDE RECORDS SUMMARY | 2024-06-23 18:21 | XMS_ITS | Encounter Summary ---
Author Organization [facility] [place] [address] Care Team Providers Care Preparer Name Role Phone Geraldo Gracia [facility] Primary Care Provider [phone] Reason for Referral * Physical Therapy (Routine) - Closed Specialty Diagnoses / Procedures Referred By Mikaela costa Referred To Contact Diagnoses Rotator cuff injury, right, subsequent encounter Arnaldo Mccabe DO [facility] [place] [address] Referral ID Status Reason Start Date Expiration Date V isits Requested Visits Authorized [id number] Closed Evaluate and Treat Non PCP 09/09/2021 03/08/2022 12 12 Encounter Details Date Type Department Care Team (Late st Contact Info) Description 09/09/2021 Orders [place] [address] Arnaldo Mccabe DO Rotator cuff injury, right, subsequent encounter Social History Tobacco Use Types Packs/Day [...] 9:45 AM EST Hospital Encounter [place] [phone] Flor Velasco MD [facility] [place] [address] 06/30/2024 9:45 AM EST - 06/30/2024 10:45 AM EST Surgery [place] [phone] Flor Velasco MD [facility] [place] [address] COLONOSCOPY, DIAGNOSTIC (WRVU 3.26) 07/27/2024 8:00 AM EST TH Visit (TeleHealth) [place] [phone] Unruly Ramirez MD [facility] [place] [address] 08/03/2024 3:00 PM EST Office Visit Neurology at [address] [address] Melvin Ramírez MD [facility] [address] [facility] [place] [address] 08/25/2024 1:45 PM EDT Office Visit [place] [phone] Keven Church MD [facility] [place] [address] Scheduled Procedures Name Priority Associated Diagnoses Date/Ti me COLONOSCOPY, DIAGNOSTIC (WRV U 3.26) Hematochezia 06/30/2024 9:45 AM EST Scheduled Referrals Name Type Priority Associated Diagnoses Orde r Schedule Referral to Physical Therapy Outpatient Referral Routine Rotator cuff injury, right, subsequent encounter Ordered: 09/09/2021 documented as of this encounter Visit Diagnoses Diagnosis Rotator cuff injury, right, subsequent encounter Hematochezia Blood in stool documented in this encounter Care Teams Preparer Relationship Specialty Start Date End Date Geraldo Gracia DNP [address] [facility] [address] [place] [address] PCP - General Family Medicine 07/17/21 09/30/22 documented as of this encounter
--- OUTSIDE RECORDS SUMMARY | 2024-06-23 18:21 | XMS_ITS | Encounter Summary ---
[place] [address] Care Team Providers Care Coordinator Of Rehabilitation Services Name Role Phone Geraldo Gracia DNP Primary Care Provider Encounter Details Date Type Department Care Team (Late st Contact Info) Description 09/18/2021 Telephone [place] [phone] Aliya Wen Social History Tobacco Use Types Packs/Day Years [...] Miscellaneous Notes * Telephone Encounter - Aliya Wen - 09/18/2021 10:25 AM EDT Call made to patient Due to licensing, today's video visit needs to be rescheduled to an in person visit. LVM for patient to call GI clinic to reschedule documented in this encounter Plan of Treatment Upcoming Encounters Date Type Department Care Team (Latest Contact Info) Description 06/30/2024 9:45 AM EST Hospital Encounter [place] [phone] Flor Velasco MD [facility] [place] [address] 06/30/2024 9:45 AM EST - 06/30/2024 10:45 AM EST [place] [phone] Flor Velasco MD [facility] [place] [address] COLONOSCOPY, DIAGNOSTIC (WRVU 3.26) 07/27/2024 8:00 AM EST TH Visit (TeleHealth) [place] [address] Unruly Ramirez MD [facility] [place] [address] 08/03/2024 3:00 PM EST Office Visit Neurology at [address] [phone] Melvin Ramírez MD [facility] [place] [address] 08/25/2024 1:45 PM EDT Office [place] [phone] Keven Church MD [facility] [place] [address] Scheduled Procedures Name Priority Associated Diagnoses Date/Ti me COLONOSCOPY, DIAGNOSTIC (WRV U 3.26) Hematochezia 06/30/2024 9:45 AM EST documented as of this encounter Visit Diagnoses Not on filedocumented in this encounter Care Teams Coordinator Of Rehabilitation Services Relationship Specialty Start Date End Date Geraldo Gracia DNP [address] [facility] [address] [place] [address] PCP - General Family Medicine 07/17/21 09/30/22 documented as of this encounter
--- OUTSIDE RECORDS SUMMARY | 2024-06-23 18:21 | XMS_ITS | Encounter Summary ---
[place] [address] Care Team Providers Care Artisan Plasterer Name Role Phone None Primary Care Provider Unavailabl e Encounter Details Date Type Department Care Team (Latest Contact Info) Description 05/22/2021 11:30 AM EST TH Visit (TeleHealth) [place] [address] Arnaldo Mccabe DO Undifferentiated connective tissue disease; Arthralgia of both hands; Rash of unknown cause; Hypocomplementemia Social History Tobacco Use Types Packs/Day Years [...] Progress Notes * Arnaldo Mccabe DO - 05/22/2021 11:30 AM EST Rheumatology Outpatient Telehealth Follow Up Note [...] given cream for improvement - ARNULFO at [facility] 1:320 speckled and cytoplasmic, COLBY negative, dsDNA negative, anti-mitochondrial negative, +anti-smooth muscle 1:160, C3 mildly low 86-88, normal C4, TPO 982, TTG negative, APS ab negative - 09/2020 episode of Raynaud's Interval History: - follow up from last visit - this was supposed to be in person however due to work constraints, it was changed to telehealth - no real significant changes since our last visit - received COVID vaccine on Wednesday, still feeling effects from it - had diffuse erythematous rash on her arms after vaccine, chest achiness but has mostly resolved at this point - overall her joints continue to bother her the most, her knees and elbows - naproxen helps the most - had a pimple in her nose that she accidentally scratched and bled for 20 minutes, otherwise no other oral or nasal ulcers - has AM stiffness in her hands but also noticed some days has numbness and tingling, especially when she raises her arms above her head - scheduled for RUQ ultrasound next week - prescribed PPI for functional dyspepsia by GI, has not started taking it yet - very few migraines if at all after starting emgality ROS (positives in bold): Gen: no fevers, [...] headache, and ARNULFO positivity possibly 2/2 UCTD. Unfortunately due to work constraints she was unable to make it into our clinic today. I thanked her for getting her first COVID vaccine and although she is slowly healing from the effects of it, sheis doing relatively better now. Since our last visit, she had xrays of her hands that show evidenceof heberden nodes that are unilateral on the joint which is likely responsible for her DIP deviation. There is no evidence of erosions. Unfortunately I cannot assess for synovitis so I will have her come into clinic in 2-3 months or sooner if needed so I can better evaluate this. Should we need to step up therapy, would need carefully consider as we cannot use MTX or AZA in her hepatic fibrosis. Most recent labs show continued low complements C3 and C4. No ongoing rash from what I can tell today to consider a consumptive process. She does have autoimmune hepatitis but with only stage 1 liverfibrosis and normal albumin and total protein, I would not expect she would have hypocomplementia secondary to liver dysfunction. At our next visit we will check total complements and evaluate for a potential new-onset complement deficiency. Inflammatory markers normal and no other abnormality in her UCTD/SLE monitoring labs. She still has b/l elbow pain which is likely epicondylitis, describes pain along lateral epicondylewith supination/pronation b/l. Discussed trying cock-up wrist splints at our last visit and I will follow this up at our next vs PT. Advised to take naproxen at night in hopes to prevent waking up with pain since this helps her modestly. PLAN: - Will try to see in person at next visit to evaluate for synovitis - Continue HCQ 200mg daily - Yearly eye exams - At next visit will get full set of SLE monitoring labs in addition to CH50, C1q Patient agreeable to telehealth visit. All questions answered for patient. Total video encounter time: 30 minutes Patient was discussed with Dr. Bradley. Arnaldo Mccabe DO Rheumatology Fellow Pager: [phone] * Luis Bradley MD - 05/22/2021 11:30 AM EST The patient's history was reviewed, and I interviewed and examined the patient with Dr. Mccabe, therheumatology fellow. History of present illness and diagnosis discussed. Chief complaint and reviewof systems reviewed. Physical exam findings, serologic testing, and diagnostic imaging reviewed. I agree with her summary, findings, diagnostic and therapeutic plans. Luis Bradley MD Staff Nonprofit Manager documented in this encounter Plan of Treatment Upcoming Encounters Date Type Department Care Team (Latest Contact Info) Description 06/30/2024 9:45 AM EST Hospital Encounter [place] [address] Flor Vealsco MD [facility] [place] [address] 06/30/2024 9:45 AM EST - 06/30/2024 10:45 AM EST Surgery [place] [address] Flor Velasco MD [facility] [place] [address] COLONOSCOPY, DIAGNOSTIC (WRVU 3.26) 07/27/2024 8:00 AM EST TH Visit (TeleHealth) [place] [address] Unruly Ramirez MD [facility] [place] [address] 08/03/2024 3:00 PM EST Office Visit Neurology at [place] [address] [place] [address] Melvin Ramírez MD [facility] [place] [address] 08/25/2024 1:45 PM EDT Office [place] [phone] Keven Church MD [facility] [place] [address] Scheduled Procedures Name Priority Associated Diagnoses Date/Ti me COLONOSCOPY, DIAGNOSTIC (WRV U 3.26) Hematochezia 06/30/2024 9:45 AM EST documented as of this encounter Visit Diagnoses Diagnosis Undifferentiated connective tissue disease Unspecified diffuse connective tissue disease Arthralgia of both hands Rash of unknown cause Hypocomplementemia Other specified disorders involving the immune mechanism Hematochezia Blood in stool documented in this encounter Care Teams Artisan Plasterer Relationship Specialty Start Date End Date None None PCP - General 01/22/21 07/16/21 documented as of this encounter
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
--- OUTSIDE RECORDS SUMMARY | 2024-06-23 18:22 | XMS_ITS | Encounter Summary ---
[place] [address] Care Team Providers Care Manager Training Name Role Phone Geraldo Gracia [facility] Primary Care Provider Reason for Referral * Diagnostic Test (Routine) - Closed Specialty Diagnoses / Procedures Referred By Contac t Referred To Contact Radiology Diagnoses Migraine with aura and without status migrainosus, not intractable Procedures MRI Brain wwo Contrast (Generic) Elizabeth Banerjee APRN [facility] [place] [address] [facility] [place] [address] Referral ID Status Reason Start Date Expiration Date V isits Requested Visits Authorized [id number] Closed Specialty Service Requested 10/02/2020 03/30/2021 1 1 Reason for Visit * Diagnostic Test (Routine) - Canceled Specialty Diagnoses / Procedures Referred By Mikaela costa Referred To Contact Radiology Diagnoses Migraine with aura and without status migrainosus, not intractable Procedures MRI Brain wo Contrast MRI Brain wwo Contrast (Generic) Elizabeth Banerjee APRN [facility] [place] [address] [facility] Image Library [facility] [place] [id number] Referral ID Status Reason Start Date Expiration Date Visits Requested Visits Authorized [id number] Canceled Specialty Service Requested 09/20/2020 03/22/2022 1 1 Encounter Details Date Type Department Care Team (Latest Contact Info) Description 10/05/2020 7:27 AM EDT - 10/05/2020 11:59 PM EDT Hospital Encounter MRI [place] [facility] [place] [phone] Elizabeth Banerjee APRN [facility] [place] [address] Migraine with aura and without status migrainosus, not intractable Discharge Disposition: Home Social History Tobacco Use [...] subcutaneously every 28 days. 1 mL 5 11/02/2020 03/07/2021 naproxen sodium (ANAPROX) 550 mg TabletIndications:Mi graine with aura and without status migrainosus, not intractable One tablet twice a day as needed for mild to moderate headache. Limit to twice a week. 30 tablet 5 09/20/2020 10/01/2022 SUMAtriptan (Imitrex) 100 mg TabletIndications:Mi graine with aura and without status migrainosus, not intractable Take one tablet at onset of migraine, may repeat in 2 hours if needed. No more than 2 tabs in 24 hours or 2 days per week. 9 tablet 3 09/20/2020 10/21/2020 metoclopramide (Reglan) 10 mg TabletIndications:Mi graine with aura and without status migrainosus, not intractable One tablet every 6 hours as needed 30 tablet 3 09/20/2020 10/21/[address] (Cymbalta) 30 mg Capsule, Delayed Release(E.C.) Take 30 mg by mouth daily. 12/24/2021 tacrolimus (PROTOPIC) 0.1 % OintmentIndications: Allergic contact dermatitis due to other agents,Eczema, unspecified type Apply topically to rash twice daily as needed. 30 g 3 07/02/2020 10/21/2020 calcium citrate (Calcitrate) 200 mg (950 mg) Tablet Take 1 tablet by mouth daily. 06/08/2022 multivitamin (THERAGRAN) Tablet Take 1 tablet by mouth daily. 11/15/2023 documented as of this encounter Plan of Treatment Upcoming Encounters Date Type Department Care Team (Latest Contact Info) Description 06/30/2024 9:45 AM EST Hospital Encounter [place] [address] Flor Velasco MD [facility] [place] [address] 06/30/2024 9:45 AM EST - 06/30/2024 10:45 AM EST Surgery [place] [phone] Flor Velasco MD [facility] [place] [address] COLONOSCOPY, DIAGNOSTIC (WRVU 3.26) 07/27/2024 8:00 AM EST TH Visit (TeleHealth) [place] [phone] Unruly Ramirez MD [facility] [place] [address] 08/03/2024 3:00 PM EST Office Visit Neurology at [facility] [address] [place] [address] Melvin Ramírez MD [facility] [address] [place] [address] 08/25/2024 1:45 PM EDT Office [place] [phone] Keven Church MD [facility] [place] [address] Scheduled Procedures Name Priority Associated Diagnoses Date/Ti me COLONOSCOPY, DIAGNOSTIC (WRV U 3.26) Hematochezia 06/30/2024 9:45 AM EST documented as of this encounter Procedures Procedure Name Priority Date/Time Associated Diagnosis Comments MRI BRAIN WWO CONTRAST (GENERIC) Routine 10/05/2020 8:34 AM EDT Migraine with aura and without status migrainosus, not intractable documented in this encounter Results * MRI Brain wwo Contrast (Generic) (10/05/2020 8:34 AM EDT) Anatomical Region Laterality Modality Head Magnetic Resonan ce Impressions 10/05/2020 10:10 AM EDT Normal exam. Thank you for letting us participate in the care of this patient. ??If you are a health care provider and have any questions regarding this report, please contact the number below. ??For patients who have questions please contact the health primary health care nurse that requested your imaging first. ? Narrative 10/05/2020 10:10 AM EDT EXAMINATION: MRI BRAIN WWO CONTRAST (GENERIC) CLINICAL HISTORY: Headache, chronic, with new features [facility]; Change to CROWE pattern ??Worsening of headaches, dizziness, + ARNULFO. No previous imaging to compare. Please check for lesions or causes for secondary headaches TECHNIQUE: MRI of the brain was performed before and after the intravenous administration of 9cc Dotarem. COMPARISON: None FINDINGS: No acute infarction, mass, mass effect. Parenchymal signal is normal. The ventricles and extra axial spaces are normal. Major intracranial flow voids are normal. The calvarium and extracalvarial soft tissues are normal. Normal enhancement. Procedure Note Misty Hanna MD - 10/05/2020 EXAMINATION: MRI BRAIN WWO CONTRAST (GENERIC) CLINICAL HISTORY: Headache, chronic, with new features [facility]; Change to CROWE pattern Worsening of headaches, dizziness,+ ARNULFO. No previous imaging to compare. Please check for lesions or causes forsecondary headaches TECHNIQUE: MRI of the brain was performed before and after the intravenousadministration of 9cc Dotarem. COMPARISON: None FINDINGS: No acute infarction, mass, mass effect. Parenchymal signal is normal.The ventricles and extra axial spaces are normal. Major intracranial flow voids are normal. The calvarium and extracalvarial soft tissues are normal. Normal enhancement. IMPRESSION Normal exam. Thank you for letting us participate in the care of this patient. If youare a health care provider and have any questions regarding this report,please contact the number below. For patients who have questions please contactthe health primary health care nurse that requested your imaging first. Elizabeth Banerjee [facility]RO[facility]ER IM[facility] MRI ORDERAB LES documented in this encounter Visit Diagnoses Diagnosis Migraine with aura and without status migrainosus, not intractable Migraine with aura, without mention of intractable migraine without mention of status migrainosus Hematochezia Blood in stool documented in this encounter Administered Medications Inactive Administered Medications - up to 3 most recent administrations Medication Order MAR Action Action Date Dose Rate Site gadoterate meglumine (Dotarem) (0.5 mMol/mL) injection solution 0-100 mL 0-100 mL, Intravenous, ONCE PRN, 1 dose, Starting on 10/05/20 at 0817, Until 10/05/20 at 0817, Per Protocol, Radiology Contrast, Routine Given 10/05/2020 8:17 AM EDT 9 mLs documented in this encounter Care Teams Manager Training Relationship Specialty Start Date End Date Geraldo Gracia DNP [facility] [address] [place] [address] PCP - General Family Medicine 12/27/19 01/21/21 documented as of this encounter
--- OUTSIDE RECORDS SUMMARY | 2024-06-23 18:22 | XMS_ITS | Encounter Summary ---
[place] [address] Care Team Providers Care Mechanical Drafter Name Role Phone Geraldo Gracia [facility] Primary Care Provider [phone] Reason for Referral * Consultation (Routine) - Closed Specialty Diagnoses / Procedures Referred By Contac t Referred To Contact Neurology Diagnoses Headache, chronic daily Arnaldo Mccabe [facility] [place]UM[place] [address] [facility] Neurology [address] [place] [address] Referral ID Status Reason Start Date Expiration Date V isits Requested Visits Authorized [id number] Closed Consult, Test & Treat 09/05/2020 09/05/2021 1 1 * Consultation (Routine) - Specialty Diagnoses / Procedures Referred By Mikaela t Referred To Contact Diagnoses Sleep disturbance Fatigue, unspecified type Arnaldo Mccabe [facility] [place]Y [place] [address] Referral ID Status Reason Start Date Expiration Date V isits Requested Visits Authorized [id number] Consult, Test & Treat Non PCP 09/05/2020 03/04/2021 1 1 Reason for Visit * Reason Comments Follow-up Encounter Details Date Type Department Care Team (Late st Contact Info) Description 09/05/2020 10:15 AM EDT Office [place] [address] Arnaldo Mccabe DO ARNULFO positive; Sleep disturbance; Fatigue, unspecified type; Headache, chronic daily Social History Tobacco Use Types Packs/Day Years [...] Sign Reading Time Taken Comments Blood Pressure 115/51 09/05/2020 10:15 AM EDT Pulse 110 09/05/2020 10:15 AM EDT Temperature 37.3 ??C (99.2 ??F) 09/05/2020 10:15 AM E DT Respiratory Rate 18 09/05/2020 10:15 AM EDT Oxygen Saturation 100% 09/05/2020 10:15 AM EDT Inhaled Oxygen Concentration - - Weight 46.4 kg (102 lb 4.8 oz) 09/05/2020 10:15 AM EDT Height 157.5 cm (5' 2) 09/05/2020 10:15 AM EDT Body Mass Index 18.71 09/05/2020 10:15 AM EDT documented in this encounter Progress Notes * Arnaldo Mccabe DO - 09/05/2020 10:15 AM EDT Rheumatology Outpatient Follow Up Note PCP: AVA Justin is a 45 y.o. female PMH celiac disease, hysterectomy 2/2 abnormal uterine bleeding, migraines, allergies, chronic pericardial effusion in 2018, costochondritis, pectus excavatum, intersitial cystitis??who we are seeing for the continuing management of arthralgias, headac he, and ARNULFO positivity. Rheum History: #Headaches, fatigue, arthralgias (knees and wrists), rosacea? #Possible Raynaud's, normal nailbed capillaries #Chronic pericardial effusion, incidental finding #Costochondritis #possible UCTD? #Anti-smooth muscle ab positivity, stage 1 liver fibrosis - headaches, seen by non- neurology once, no further work up completed, thought to be autoimmune - embarrasingly tired -??arthralgias??mostly in left knee, ankle, right wrist, and back - noticed some swelling in left knee, pain worse with walking - slight erythematous rash on nose and tops of cheeks, comes/goes, usually in the morning, sometimes -> appeared to be roseaca in nature - hands are numb such as finger tips - hands hurt in the cold, feel burning when touching cold objects, can turn blue, every now and then one finger might turn white, blue and red, does not happen all the time in the cold, nailbed initially slightly abnormal, revaluated normal - no dry eyes, no signficant dry mouth - AM stiffness, lasting one hour, hot shower helps - ibuprofen for joint pain, worsened in cold - cold weather worsens joint pain - C-spine xray normal - single episode 2 years ago of having painful spots with swelling after wearing shorts, in the sunfor 20 minute, lasted for one week, given cream for improvement - doesn't sleep well, can't remember the last time she had a good night rest - ARNULFO at [facility] 1:320 speckled and cytoplasmic, COLBY negative, anti-mitochondrial negative, +anti-smooth muscle 1:160 Interval History: - most symptoms are overall stable - now has ongoing headache for 10 days, located posteriorly with some radiation to neck, taking ibuprofen and tylenol without improvement, no changes in vision - different from her other headaches that wake her up at night, pain with closing her eyes so have to remain open - no significant SOB - gets prickly rash on anterior thighs, slightly erythematous, states it is currently present - still not having restful sleep, does not snore and currently not waking up in the middle of the night - daughter tested positive for hemochromatosis - seen by GI, had fibro scan and undergoing further workup - ophtho eval completed, she reports all was normal ROS (positives in bold): Gen: no fevers, no chills, no night sweats Pulm: no SOB CV: no CP Abd: no abd pain, no nausea, no vomiting, no diarrhea MSK: see HPI Family Hx: Mother - unknown Father - cancer Brother - metastatic prostate cancer Cousin - metastatic colon cancer Niece - SLE, diagnosed at age 24 Daughter - hemochromatosis ?? No family history of RA, OA, Sjogren's, Scleroderma, or gout ?? 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 Gen: well appearing, alert and oriented x 3, nad HEENT: NCAT, EOMI, moist mucous membranes, no oral ulcers, normal sclerae, no facial flushing or malar rash present Neck: no cervical LAD, thyroid mildly enlarged?, appears wide in circumference Heart: regular rate, no murmurs, rubs or gallops Lungs: clear to auscultation b/l Abd: soft, NT/ND Skin: warm and dry, no rheumatologic rashes. Dry skin along distal phalanges Nails: no nail pitting, nailbed erythema but capillaries normal Joints: Shoulders: FROM, non-tender to palpation Elbows:FROM Wrists: FROM, no swelling, non-tender Hands: No synovitis, no MCP compression tenderness, full claw and fist Hips: FROM, no tenderness Knees: FROM, small effusion b/l, no tenderness Ankles: FROM, non-tender, no effusion Feet: no MTP compression tenderness, no swelling in MTP/DIP/PIPs Labs/Studies: 08/26/20 CMP, Iron studies normal CRP 0.2 TTG negative IgG, IgA normal Anti-mitochondrial negative TSH 5.96, free T4 normal 05/2020 Anti-mitochondrial negative Anti-smooth muscle, 1:160 05/15/2020 ARNULFO 1:80 midbody, 1:320 speckled and cytoplasmic ESR 8, CRP 0.3 C3 88 (l), C4 11 DsDNA, COLBY negative Antiphospholipid antibodies negative Vitamin D 38 TSH 2.64 CMP normal, mildly elevated ALT 31 (ULN 30) CBC normal UA normal, Pro:Cr normal ?? Outside records 03/22/2020 ARNULFO 1:320, centromere and homogenous Lupus anticoagulant negative SPEP no monoclonal proteins, normal aside from slightly low beta-globulins WBC 6.4, Hgb 12.9 (normocytic), Plts 196 BMP normal, Cr 0.70, GFR >60 CRP <0.05 mg/dL UA trace blood, no protein, no casts or RBCs ?? RUQ US 12/2016 1.??Normal right upper quadrant ultrasound without evidence of cholelithiasis oracute cholecystitis. 2. Unexpected finding: Small to moderate simple appearing pericardial effusionof uncertain etiology. ?? TTE 2018 1. Left ventricle: The cavity size was normal. Wall thickness was??normal. Systolic function was hyperdynamic. The estimated ejection fraction was 65-70%. Wall motion was normal; there were no regional wall motion abnormalities. 2. Right ventricle: The cavity size was normal. Systolic function was normal. 3. Pericardium, extracardiac: A small, , free-flowing pericardial effusion was identified. Respirophasic change in stroke volume was normal. Fibro scan 07/2020 Interpretation: Based on this Fibroscan result, history, clinical examination and review of laboratory and radiological data, this patient likely has stage F1 liver fibrosis. Assessment/Plan: Karolina Olivas is a 45 y.o. female PMH celiac disease, hysterectomy 2/2 abnormal uterine bleeding, migraines, allergies, chronic pericardial effusion in 2018, costochondritis, pectus excavatum, intersitial cystitis??who we are seeing for the continuing management of arthralgias, headac he, and ARNULOF positivity. Fortunately she was able to make it in today on short notice for re-evaluation of symptoms in-person. Her examination is overall quite unremarkable aside from a few things. She does not have synovitis in her hands but has dry peeling skin distal phalanges. No significant SOB. Almost appeared to be amusement park ride mechanic's hands. Anti-Ivory previously negative, nor does she have other symptoms to suggest antisynthetase syndrome. No rashes to suggest dermatomyositis and she has normal 5/5 muscle strength UE and LE b/l. She does have increased laxity of her patella with small effusions, and her joints seem to bequite lax as well. I question if she previously had hypermobility syndrome which can explain her overall arthralgias. Her nailbed capillary exam today is normal. Her positive ARNULFO is likely attributed to her anti-smooth muscle antibody, for which GI is currentlyworking her up. Most recent fibroscan showed likely stage 1 liver fibrosis, but luckily has not hadLFT elevation thus far. Her daughter was also recently diagnosed with hemochromatosis. Ferritin checked last month for Karolina was normal. I do not think she has SLE or a current connective tissue disease to explain her symptoms at this time. Of course, she has a chronic pericardial effusion and arthralgias with some effusion in her knees, but no true Raynaud's, hand synovitis, and her ARNULFO again is likely due to smooth muscle. Her COLBY(including anti-osborn) and dsDNA were negative. We will repeat complements, as her C3 was mildly low at our last visit. I had initially thought to call her UCTD and considered HCQ however now that wehave more specific antibody positivity, this seems less so and I don't feel HCQ is indicated at this time. Initially thought her thyroid was enlarged. She had elevated TSH but normal free T4. I will add on TPO and thyroglobulin antibodies as well. Her headaches might be primary in nature but I also think there is a component of sleep disturbance. Her neck circumference seems a bit wider than I would expect for her stature, however I did not measure it. She does not feel restful so I think a referral to sleep medicine can be helpful. She asked for an MRI of her brain, for which I've asked her to talk to her primary or previous neurologist (last seen in February 2020). Brief cranial nerve exam was normal and no obvious neurologic deficits today. I have also put in a referral to [facility] neurology for a second opinion regarding her headaches. PLAN: - repeat C3, C4, CH 50, TPO ab, thyrogobulin ab - neuro referral - external sleep medicine referral handed to patient Follow up 6 months Patient was discussed with Dr. Dameon Mccabe DO Rheumatology Fellow Pager: [phone] * Gatito Xiao DO - 09/05/2020 10:15 AM EDT The patient was seen and examined with Dr. Mccabe. I agree with her assessment and plan. 45 year old woman with positive ARNULFO, +anti smooth muscle antibody, chronic pericardial effusion (small, asymptomatic) and recently discovered stage 1 liver fibrosis on fibroscan followed by Rheumatology for ?UCTD. At this time Karolina does not have signs or symptoms of a connective tissue disease including lupus, and we discussed that it is important for her to follow up with us yearly to evaluate for any new symptoms. We emphasized importance of following up with hepatology for fibrosis and +smooth muscle antibody. Will check anti TPO and thyroglobulin antibodies today. Gatito Xiao DO [facility] documented in this encounter Plan of Treatment Upcoming Encounters Date Type Department Care Team (Latest Contact Info) Description 06/30/2024 9:45 AM EST Hospital Encounter [place] [address] Flor Velasco MD [facility] [place] [address] 06/30/2024 9:45 AM EST - 06/30/2024 10:45 AM EST [place] [address] Flor Velasco MD [facility] [place] [address] COLONOSCOPY, DIAGNOSTIC (WRVU 3.26) 07/27/2024 8:00 AM EST TH Visit (TeleHealth) [place] [address] Unruly Ramirez MD [facility] GASTROENTEROLOGY [place] [address] 08/03/2024 3:00 PM EST Office Visit Neurology at [facility] [address] [place] [address] eMlvin Ramírez MD [facility] DR [facility] [place] [address] 08/25/2024 1:45 PM EDT Office [place] [address] Keven Church MD [facility] [place]ATOLOGY [place] [address] Scheduled Procedures Name Priority Associated Diagnoses Date/Ti me COLONOSCOPY, DIAGNOSTIC (WRV U 3.26) Hematochezia 06/30/2024 9:45 AM EST Scheduled Referrals Name Type Priority Associated Diagnoses Orde r Schedule Referral to [facility] Center Outpatient Referral Routine Sleep disturbance Fatigue, unspecified type Ordered: 09/05/2020 Referral to Neurology Outpatient Referral Routine Headache, chronic daily Ordered: 09/05/2020 documented as of this encounter Procedures Procedure Name Priority Date/Time Associated Diagnosis Comments HC THYROGLOBULIN ANTIBODIES Routine 09/05/2020 11:34 AM EDT ARNULFO positive HC THYROID PEROXIDASE ANTIBODY Routine 09/05/2020 11:34 AM EDT ARNULFO positive HC VENIPUNCTURE Routine 09/05/2020 11:34 AM EDT ARNULFO positive HC COMPLEMENT,C3 SERUM Routine 11:34 AM EDT ARNULFO positive HC COMPLEMENT C4, PLASMA Routine 09/05/2020 11:34 AM EDT ARNULFO positive documented in this encounter Results * Complement, Total (09/05/2020 11:34 AM EDT) Pathologist [facility] [place] Complement, Total 70 30 - 75 unit/mL [facility] Comment: Test Performed by: [facility] [address] [place] [address] Edging Machine Operator: Shay Low M.D. Ph.D.; CLIA# [id number] Blood specimen (specimen) 09/05/2020 11:34 AM EDT 09/05/2020 1:01 PM EDT Narrative Resulting Agency Comment Spec In Lab Gatito Xiao DO CHEMISTRY ORDERABLES Performing Organization Address [facility]/ZIP Co de Phone Number [facility] [place] [address] * Thyroglobulin Antibody (09/05/2020 11:34 AM EDT) [facility] Thyroglob Ab 26.3 0.0 - 40.0 IU/mL [facility] Blood specimen (specimen) 09/05/2020 11:34 AM EDT 09/09/2020 10:27 AM EDT Narrative Resulting Agency Comment Spec In Lab Gatito Xiao DO LAB SEND OUT ORDERAB LES Performing Organization Address [facility]/ZIP Co de Phone Number [facility] [place] [address] * (ABNORMAL) Thyroid peroxidase antibody (09/05/2020 11:34 AM EDT) [facility] Thyroperoxidase Ab 982(H) <=34 IU/mL [facility] Blood specimen (specimen) 09/05/2020 11:34 AM EDT 09/09/2020 10:27 AM EDT Narrative Resulting Agency Comment Spec In Lab Gatito Xiao DO IMMUNOLOGY ORDERABLE S Performing Organization Address City/[facility]/ZIP Co de Phone Number [facility] [place] [address] * C4 Complement (09/05/2020 11:34 AM EDT) Complement C4 10 10 - 40 mg/dL [facility] Blood specimen (specimen) 09/05/2020 11:34 AM EDT 09/05/2020 11:45 AM EDT Narrative Resulting Agency Comment Spec In Lab Gatito Xiao DO CHEMISTRY ORDERABLES Performing Organization Address City/[facility] [place] [address] * (ABNORMAL) C3 Complement (09/05/2020 11:34 AM EDT) Complement C3 86(L) 90 - 180 mg/dL [facility] Blood specimen (specimen) 09/05/2020 11:34 AM EDT 09/05/2020 11:45 AM EDT Narrative Resulting Agency Comment Spec In Lab Gatito Xiao DO CHEMISTRY ORDERABLES Performing Organization Address City/[facility] Co de Phone Number [facility] [place] [address] documented in this encounter Visit Diagnoses Diagnosis ARNULFO positive Other and unspecified nonspecific immunological findings Sleep disturbance Sleep disturbance, unspecified Fatigue, unspecified type Headache, chronic daily Headache Hematochezia Blood in stool documented in this encounter Care Teams Mechanical Drafter Relationship Specialty Start Date End Date Geraldo Gracia DNP [address] [place] [address] PCP - General Family Medicine 12/27/19 01/21/21 documented as of this encounter
--- OUTSIDE RECORDS SUMMARY | 2024-06-23 18:22 | XMS_ITS | Encounter Summary ---
[place] [address] Care Team Providers Care Scudding Inspector Name Role Phone Geraldo Gracia NANNETTE Primary Care Provider Reason for Visit * Reason Onset Date Comments TeleHealth 12/24/2020 Encounter Details Date Type Department Care Team (Late st Contact Info) Description 12/24/2020 Telephone Neurology at [address] [phone] Elizabeth Banerjee APRN [facility] [place] [address] TeleHealth Social History Tobacco Use Types Packs/Day [...] Telephone Encounter - Karely Packer RN - 12/24/2020 11:04 AM EDT Spoke to this patient??by phone to review their medications and allergies prior to their upcoming tele-appointment with the Neurology provider. ??Medications and allergies reviewed, verified and updated as needed. ?? documented in this encounter Plan of Treatment Upcoming Encounters Date Type Department Care Team (Latest Contact Info) Description 06/30/2024 9:45 AM EST Hospital Encounter Gastroenterology at [place] [phone] Flor Velasco MD [facility] [place] [address] 06/30/2024 9:45 AM EST - 06/30/2024 10:45 AM EST Surgery Gastroenterology at [place] [phone] Flor Velasco MD [facility] [place] [address] COLONOSCOPY, DIAGNOSTIC (WRVU 3.26) 07/27/2024 8:00 AM EST TH Visit (TeleHealth) Gastroenterology at [place] [phone] Unruly Ramirez MD [facility] [place] [address] 08/03/2024 3:00 PM EST Office Visit Neurology at [address] [phone] Melvin Ramírez MD [facility] DR [facility] [place] [address] 08/25/2024 1:45 PM EDT Office [place] [address] Keven Church MD [facility] [place] [address] Scheduled Procedures Name Priority Associated Diagnoses Date/Ti me COLONOSCOPY, DIAGNOSTIC (WRV U 3.26) Hematochezia 06/30/2024 9:45 AM EST documented as of this encounter Visit Diagnoses Not on filedocumented in this encounter Care Teams Scudding Inspector Relationship Specialty Start Date End Date Geraldo Gracia DNP [address] [place] [address] PCP - General Family Medicine 12/27/19 01/21/21 documented as of this encounter
--- OUTSIDE RECORDS SUMMARY | 2024-06-23 18:22 | XMS_ITS | Encounter Summary ---
[place] [address] Care Team Providers Care Enrollment Processor Name Role Phone Geraldo Gracia DNP Primary Care Provider [phone] Reason for Referral * Consultation (Routine) - Closed Specialty Diagnoses / Procedures Referred By Mikaela t Referred To Contact Endocrinology Diagnoses Anti-TPO antibodies present Arnaldo Mccabe DO [facility] [place] [address] [facility] Endocrinology [address] [place] [address] Referral ID Status Reason Start Date Expiration Date V isits Requested Visits Authorized [id number] Closed Consult, Test & Treat 09/10/2020 09/10/2021 1 1 Encounter Details Date Type Department Care Team (Late st Contact Info) Description 09/10/2020 Telephone [place] [address] Arnaldo Mccabe DO Social History Tobacco Use Types Packs/Day [...] encounter Miscellaneous Notes * Telephone Encounter - Arnaldo Mccabe DO - 09/10/2020 3:51 PM EDT Called Karolina to review labs. C3 mildly low 86, down from 88 with borderline C4. Total complementnormal. Thyroglobulins negative. Anti-TPO ab >900. Her TSH was 5.96 with free T4 normal 1.48 in July. Unclear if she has subclinical hypothyroidism 2/2 alberto's with high titer anti-TPO? I discussed that an endocrinology consult would be the next best step, possibly needs a thyroid ultrasound. On my exam, her thyroid did seem enlarged. She was agreeable to [facility] endocrine consultation. I will still plan to see her in a few months with repeat complements and other labs at that time. documented in this encounter Plan of Treatment Upcoming Encounters Date Type Department Care Team (Latest Contact Info) Description 06/30/2024 9:45 AM EST Hospital Encounter [place] [address] Flor Velasco MD [facility] [place] [address] 06/30/2024 9:45 AM EST - 06/30/2024 10:45 AM EST Surgery [place] [address] Flor Velasco MD [facility] [place] [address] COLONOSCOPY, DIAGNOSTIC (WRVU 3.26) 07/27/2024 8:00 AM EST TH Visit (TeleHealth) [place] [address] Unruly Ramirez MD [facility] [place] [address] 08/03/2024 3:00 PM EST Office Visit Neurology at [facility] [address] [place] [address] Melvin Ramírez MD [facility] [place] [address] 08/25/2024 1:45 PM EDT Office [place] [address] Keven Church MD [facility] [place] [address] Scheduled Procedures Name Priority Associated Diagnoses Date/Ti me COLONOSCOPY, DIAGNOSTIC (WRV U 3.26) Hematochezia 06/30/2024 9:45 AM EST Scheduled Referrals Name Type Priority Associated Diagnoses Order Schedule Referral to Endocrinology Outpatient Referral Routine Anti-TPO antibodies present Ordered: 09/10/2020 documented as of this encounter Visit Diagnoses Diagnosis Anti-TPO antibodies present Other and unspecified nonspecific immunological findings Hematochezia Blood in stool documented in this encounter Care Teams Enrollment Processor Relationship Specialty Start Date End Date Geraldo Gracia DNP [address] [place] [address] PCP - General Family Medicine 12/27/19 01/21/21 documented as of this encounter
--- OUTSIDE RECORDS SUMMARY | 2024-06-23 18:22 | XMS_ITS | Encounter Summary ---
[place] [address] Care Team Providers Care Vinyl Flooring Installer Name Role Phone Geraldo Gracia DNP Primary Care Provider [phone] Encounter Details Date Type Department Care Team (Late st Contact Info) Description 10/04/2020 Notes Only Neurology at [address] [phone] Elizabeth Banerjee, INDUSTRIAL [employer]FET[employer] MANAGER [facility] [place] [address] Social History Tobacco Use Types Packs/Day Years [...] Progress Notes * Elizabeth Banerjee APRN - 10/04/2020 12:31 PM EDTSummary: Peer to Peer Peer to Peer for approval of MRI can be wwo contrast as ordered. # [id number] October 02 through Mar 30 2021 Elizabeth Banerjee APRN [facility] [place] [facility] documented in this encounter Plan of Treatment Upcoming Encounters Date Type Department Care Team (Latest Contact Info) Description 06/30/2024 9:45 AM EST Hospital Encounter Gastroenterology at [place] [phone] Flor Velasco MD [facility] [place] [address] 06/30/2024 9:45 AM EST - 06/30/2024 10:45 AM EST Surgery Gastroenterology at [place] [phone] Flor Velasco MD [facility] [place] [address] COLONOSCOPY, DIAGNOSTIC (WRVU 3.26) 07/27/2024 8:00 AM EST TH Visit (TeleHealth) [place] [address] Unruly Ramirez MD [facility] [place] [address] 08/03/2024 3:00 PM EST Office Visit Neurology at [address] [phone] Melvin Ramírez MD [facility] [place] [address] 08/25/2024 1:45 PM EDT Office Visit Rheumatology at [place] [phone] Keven Church MD [facility] [place] [address] Scheduled Procedures Name Priority Associated Diagnoses Date/Ti me COLONOSCOPY, DIAGNOSTIC (WRV U 3.26) Hematochezia 06/30/2024 9:45 AM EST documented as of this encounter Visit Diagnoses Not on filedocumented in this encounter Care Teams Vinyl Flooring Installer Relationship Specialty Start Date End Date Geraldo Gracia DNP [facility] [address] [place] [address] PCP - General Family Medicine 12/27/19 01/21/21 documented as of this encounter
--- OUTSIDE RECORDS SUMMARY | 2024-06-23 18:22 | XMS_ITS | Encounter Summary ---
Author Organization [facility] [place] [address] Care Team Providers Care Cad Developer Name Role Phone Geraldo Gracia DNP Primary Care Provider Encounter Details Date Type Department Care Team (Latest Contact Info) Description 08/26/2020 1:15 PM EDT Laboratory Appointment Lab [address] [place] [phone] Diarrhea, unspecified type; Autoimmune hepatitis Social History Tobacco Use Types [...] AM EST Hospital Encounter [place] [phone] Flor Velasco MD [facility] [place] [address] 06/30/2024 9:45 AM EST - 06/30/2024 10:45 AM EST Surgery Gastroenterology at [place] [phone] Flor Velasco MD [facility] [place] [address] COLONOSCOPY, DIAGNOSTIC (WRVU 3.26) 07/27/2024 8:00 AM EST TH Visit (TeleHealth) Gastroenterology at [place] [phone] Unruly Ramirez MD [facility] [place] [address] 08/03/2024 3:00 PM EST Office Visit Neurology at [address] [phone] Melvin Ramírez MD [facility] [place] [address] 08/25/2024 1:45 PM EDT Office Visit Rheumatology at [place] [phone] Keven Church MD [facility] [place] [address] Scheduled Procedures Name Priority Associated Diagnoses Date/Ti me COLONOSCOPY, DIAGNOSTIC (WRV U 3.26) Hematochezia 06/30/2024 9:45 AM EST documented as of this encounter Procedures Procedure Name Priority Date/Time Associated Diagnosis Comments HC C-REACTIVE PROTEIN Routine 08/26/2020 2:01 PM EDT Diarrhea, unspecified type HC [facility] LIVER-KIDNEY MICROSOMAL AB Routine 08/26/2020 2:01 PM EDT Autoimmune hepatitis HEMOGRAM Routine 08/26/2020 2:01 PM EDT Diarrhea, unspecified type DIFFERENTIAL, AUTOMATED Routine 08/27/19 21 2:01 PM EDT Diarrhea, unspecified type HC IRON BINDING CAPACITY Routine 021 2:01 PM EDT Autoimmune hepatitis HC PCH MITOCHONDRIAL ANTIBODY Routine 08/26/2020 2:01 PM EDT Autoimmune hepatitis HC TISSUE TRANSGLUTAMINASE AB Routine 08/26/2020 2:01 PM EDT Diarrhea, unspecified type HC PROTHROMBIN TIME Routine 08/26/2020 2 :01 PM EDT Autoimmune hepatitis HC CBC,PLT & AUTO DIFF Routine 2:01 PM EDT Diarrhea, unspecified type HC THYROID STIMULATING HORMONE, SERUM Routine 08/26/2020 2:01 PM EDT Diarrhea, unspecified type T4, FREE Routine 08/26/2020 2:01 PM EDT HC IGA, SERUM Routine 08/26/2020 2:01 PM EDT Diarrhea, unspecified type HC IGG, SERUM Routine 08/26/2020 2:01 PM EDT Autoimmune hepatitis HC FERRITIN, SERUM Routine 08/26/2020 2: 01 PM EDT Autoimmune hepatitis COMPREHENSIVE METABOLIC PANEL Routine 08/26/2020 2:01 PM EDT Diarrhea, unspecified type Autoimmune hepatitis documented in this encounter Results * T4, free (08/26/2020 2:01 PM EDT) Free T4 1.48 0.93 - 1.70 ng/dL [facility] Blood specimen (specimen) Venous Draw / Unknown 08/26/2020 2:01 PM EDT 08/26/2020 2:36 PM EDT Narrative Resulting Agency Comment Spec In Lab Mathew Bianchi MD CHEMISTRY ORDERABLES Performing Organization Address City/[facility]/ZIP Co de Phone Number [facility] [place] [address] * Differential, Automated (08/26/2020 2:01 PM EDT) Neutrophil % 71.2 % [facility] Neutrophil Absolute 4.04 1.70 - 6.10 x10(3)/[facility] LAB[facility]AT[facility] Lymph % 16.2 % [facility] Lymphocytes Abs 0.9 0.9 - 3.2 x10(3)/[facility]ORATORY Monocyte % 7.8 % [facility] Monocyte Abs 0.4 0.3 - 0.9 x10(3)/[facility]ORY Eos % 3.0 % [facility] Eosinophils Abs 0.2 0.0 - 0.4 x10(3)/[facility]OR[facility]ORY Basophil % 1.4 % [facility] Baso Absolute 0.1 0.0 - 0.1 x10(3)/[facility]ORATORY Immature Gran % 0.40 % [facility] Comment: Immature granulocytes(IG's)percentage and absolute count will include metamyelocytes, myelocytes, and promyelocytes. Blood smears from CBCs yielding IG's will be scanned manually for concordance. If this scan disagrees with the automated IG or if promyelocytes are noted, a manual differential will be performed. Immature Gran Absolute 0.02 0.00 - 0.04 x10(3)/[facility] Blood specimen (specimen) 08/26/2020 2:01 PM EDT 08/26/2020 2:30 PM EDT Narrative Resulting Agency Comment Spec In Lab Mathew Bianchi MD HEMATOLOGY ORDERABLE S Performing Organization Address City/[facility]/ZIP Co de Phone Number [facility] [place] [address] * (ABNORMAL) Hemogram (08/26/2020 2:01 PM EDT) [facility] White Blood Cell 5.7 4.0 - 9.5 x10(3)/mc L [facility] Red Blood Cell 4.25 4.00 - 5.21 x10(6)/mc L [facility] Hemoglobin 13.7 11.7 - 15.5 gm/dL [facility] Hematocrit 40.4 35.7 - 45.8 % [facility] Mean Cell Volume 95.1(H) 82.6 - 94.4 fL [facility] Mean Cell Hemoglobin 32.2(H) 27.1 - 32.0 pg [facility] Mean Cell Hemoglobin Concentration 33.9 31.7 - 35.0 gm/dL [facility] Platelet 251 145 - 357 x10(3)/[facility]ORATORY RDW Standard Deviation 42.3 37.0 - 46.0 fL [facility] RDW coefficient of variation 12.1 11.5 - 14.1 % [facility] Mean Platelet Volume 10.7 7.6 - 12.9 fL [facility] NRBC% auto 0.0 % [facility] NRBC Absolute 0.000 0.000 - 0.000 x10(3)/ L [facility] Blood specimen (specimen) 08/26/2020 2:01 PM EDT 08/26/2020 2:30 PM EDT Narrative Resulting Agency Comment Spec In Lab Mathew Bianchi MD HEMATOLOGY ORDERABLE S [facility] [place] [address] * Ferritin (08/26/2020 2:01 PM EDT) [facility] Ferritin 63 15 - 150 ng/mL [facility] Comment: Pediatric reference ranges not verified at [facility] [place], interpret with caution. Reference ranges for females greater than 50 years of age approach values for men, i.e., 30-400 ng/mL. Blood specimen (specimen) 08/26/2020 2:01 PM EDT 08/26/2020 2:30 PM EDT Narrative Resulting Agency Comment Spec In Lab Vanessa Randhawa MD CHEMISTRY ORDERABLES [facility] [place] [address] * (ABNORMAL) Iron and TIBC (08/26/2020 2:01 PM EDT) Iron 60 30 - 150 mcg/dL [facility] TIBC 235(L) 250 - 450 mcg/dL [facility] Iron Saturation 26 20 - 50 % [facility] Blood specimen (specimen) 08/26/2020 2:01 PM EDT 08/26/2020 2:30 PM EDT Narrative Resulting Agency Comment Spec In Lab Vanessa Randhawa MD CHEMISTRY ORDERABLES [facility] [place] [address] * (ABNORMAL) Comprehensive metabolic panel (non-fasting) (08/26/2020 2:01 PM EDT) Glucose 92 65 - 199 mg/dL [facility] Comment:Diabetes: >=200 mg/d L plus symptoms Blood Urea Nitrogen 5(L) 8 - 18 mg/dL [facility] Creatinine 0.71 0.70 - 1.20 mg/dL [facility] Sodium 141 135 - 145 mmol/L [facility] Potassium 4.3 3.5 - 5.0 mmol/L [facility] Comment: Please note: ??Patients with WBC >100,000 may have falsely elevated Potassium levels. ??For accurate Potassium quantification in these patients send serum separator tube (gold top) for subsequent determinations. ??Contact the Clinical Chemistry Laboratory if there are any questions. Chloride 104 98 - 107 mmol/L [facility] Carbon Dioxide 28 22 - 31 mmol/L [facility] Anion Gap 9 5 - 15 mmol/L [facility] Calcium 9.4 8.5 - 10.5 mg/dL [facility] Protein, Total 7.4 6.1 - 8.0 gm/dL [facility] Albumin 4.6 3.2 - 5.2 gm/dL [facility] Aspartate Aminotransferase 19 0 - 30 unit/L [facility] Alanine Aminotransferase 20 0 - 30 unit/L [facility] Alkaline Phosphatase 41 35 - 105 unit/L [facility] Bilirubin, Total 0.3 0.2 - 1.3 mg/dL [facility] Est Glomerular Filtration Rate 102 >=60 mL/min/1. 73 m?? [facility] Comment: This patient? s estimated glomerular filtration rate (eGFR) is between 102 mL/min/1.73 m2 (patients with less muscle mass) and 118 mL/min/1.73 m2 (patients with more muscle mass) [...] and symptoms in addition to eGFR. Blood specimen (specimen) 08/26/2020 2:01 PM EDT 08/26/2020 2:30 PM EDT Narrative Resulting Agency Comment Spec In Lab Tom Hyatt MD CHEMISTRY ORDERABLES [facility] [place] [address] * Prothrombin Time (08/26/2020 2:01 PM EDT) Prothrombin Time 12.4 9.4 - 12.5 sec [facility] International Normalization Ratio 1.1 [facility] Comment: An INR <2.0 indicates adequate procoagulant activity for hemostasis in most patients without underlying bleeding disorders, though the INR may not adequately reflect hemostatic capacity in patients with liver disease and synthetic impairment. The recommended target INR range for therapeutic anticoagulation is 2.0 ? 3.0 for most applications, though lower and higher ranges may be appropriate depending on clinical circumstances. Blood specimen (specimen) 08/26/2020 2:01 PM EDT 08/26/2020 2:30 PM EDT Narrative Resulting Agency Comment Spec In Lab Tom Hyatt MD HEMATOLOGY ORDERABLE S Performing Organization Address [facility] Co de Phone Number [facility] [place] [address] * CRP, acute inflammation (08/26/2020 2:01 PM EDT) C-Reactive Protein 0.2 <=4.9 mg/L [facility] Blood specimen (specimen) 08/26/2020 2:01 PM EDT 08/26/2020 2:30 PM EDT Narrative Resulting Agency Comment Spec In Lab Tom Hyatt MD CHEMISTRY ORDERABLES Performing Organization Address [facility] Co de Phone Number [facility] [place] [address] * Tissue transglutaminase, IgA (08/26/2020 2:01 PM EDT) TTG IgA Ab 0.3 0.1 - 10.0 u/ml [facility] Comment: Negative = <7 U/mL Equivocal = 7-10 U/mL Positive = >10 U/mL Blood specimen (specimen) 08/26/2020 2:01 PM EDT 08/27/2020 7:14 AM EDT Narrative Resulting Agency Comment Spec In Lab Tom Hyatt MD IMMUNOLOGY ORDERABLE S Performing Organization Address City/[facility] Co de Phone Number [facility] [place] [address] * IgA (08/26/2020 2:01 PM EDT) IgA 122 70 - 400 mg/dL [facility] Blood specimen (specimen) 08/26/2020 2:01 PM EDT 08/26/2020 2:30 PM EDT Narrative Resulting Agency Comment Spec In Lab Tom Hyatt MD CHEMISTRY ORDERABLES Performing Organization Address [facility] Co de Phone Number [facility] [place] [address] * IgG (08/26/2020 2:01 PM EDT) IgG 1,260 700 - 1,600 mg/dL [facility] Comment: Pediatric Reference Intervals obtained from the [employer] Reference Interval project. http://www.[employer]fin[employer].ca/caliperproject/index.html Blood specimen (specimen) 08/26/2020 2:01 PM EDT 08/26/2020 2:30 PM EDT Narrative Resulting Agency Comment Spec In Lab Tom Hyatt MD CHEMISTRY ORDERABLES Performing Organization Address [facility] Co de Phone Number [facility] [place] [address] * Liver/Kidney Microsome Type 1 Antibody (08/26/2020 2:01 PM EDT) Malina/Kid Mirco1 (MAY) <5.0 <=20.0 (Negative) U [facility] Comment: Test Performed by: [facility] [address], [place] [address] Terrazzo Tile Setter: Shay Low M.D. Ph.D.; CLIA# [id number] Blood specimen (specimen) 08/26/2020 2:01 PM EDT 08/26/2020 4:38 PM EDT Narrative Resulting Agency Comment Spec In Lab Tom Hyatt MD LAB SEND OUT ORDERAB LES Performing Organization Address City/[facility] Co de Phone Number [facility] [place] [address] * Mitochondrial Antibody, M2 (08/26/2020 2:01 PM EDT) Mitochon Ab (SEPTEMBER) <0.1 <0.1 (Negative) U [facility] Comment: Test Performed by: [facility] [address] [place] [address] Terrazzo Tile Setter: Shay Low M.D. Ph.D.; CLIA# [id number] Blood specimen (specimen) 08/26/2020 2:01 PM EDT 08/26/2020 4:38 PM EDT Narrative Resulting Agency Comment Spec In Lab Tom Hyatt MD LAB SEND OUT ORDERAB LES Performing Organization Address [facility] Co de Phone Number [facility] [place] [address] * (ABNORMAL) TSH (08/26/2020 2:01 PM EDT) Thyroid Stimulating Hormone 5.96(H) 0.27 - 4.20 mcIU/mL [facility] Blood specimen (specimen) 08/26/2020 2:01 PM EDT 08/26/2020 2:30 PM EDT Narrative Resulting Agency Comment Spec In Lab Tom Hyatt MD CHEMISTRY ORDERABLES Performing Organization Address City/[facility] Co de Phone Number [facility] [place] [address] documented in this encounter Visit Diagnoses Diagnosis Diarrhea, unspecified type Autoimmune hepatitis Hematochezia Blood in stool documented in this encounter Care Teams Cad Developer Relationship Specialty Start Date End Date Geraldo Gracia DNP Elizabeth [address]NA[address] [place] [address] PCP - General Family Medicine 12/27/19 01/21/21 documented as of this encounter
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
--- OUTSIDE RECORDS SUMMARY | 2024-06-23 18:22 | XMS_ITS | Encounter Summary ---
[place] [address] Care Team Providers Care Weed Eradicator Name Role Phone Geraldo Gracia [facility] Primary Care Provider Reason for Visit * Reason Onset Date Comments Other 01/20/2021 Encounter Details Date Type Department Care Team (Late st Contact Info) Description 01/20/2021 [place] [phone] Javier Bowamn RN Other Social History Tobacco Use Types Packs/Day Years [...] encounter Miscellaneous Notes * Telephone Encounter - Javier Bowman RN - 01/20/2021 9:13 AM EDT Caller:Karolina Relationship: Self Clarified Two Patient Identifiers: [x] Reason For Call: Karolina reports 5/10 pain in all of her joints, and muscle aches, she was having trouble in the heat last Yao, her head was hurting, felt sick and dizzy, stomach/rib pain, and activity makes it all hurt worse, tried Naproxen, but it didn't help, stated home from work today, no appointment with Dr. Mccabe until February, but asking if she has any suggestions about this problem.She also sent a [employer] message. Assessment/Symptom Review (onset, location, duration, what makes it better or worse, pertinent positives and negatives): Patient states all of the above issues, with rib pain and sore joints 5/10 now, trouble sleeping, pain is on/off, asking for a response to these issues from Dr. Mccabe, also has sent a [employer] message. Denies fever, chills, numbness, tingling, red, hot, or swollen joints. Review of Systems Related to Reason for Call: System POS NEG Not Applicable Head (ENT /Neuro) [x] [] [] Cardiac [] [x] [] Respiratory [] [x] [] GI [] [x] [] [] [x] [] Musculoskeletal [x] [] [] Integumentary [] [x] [] Mental Health [] [] [x] Select Specific Decision Support Tool Used: Telephone Triage Protocols for Nurses, 5th Edition, Leah Pickard, 2016 Name of Guideline/Protocol Used: pain Disposition/Plan of Care: Defer to provider recommendation Patient/Caregiver verbalizes understanding of plan of care: Yes Patient/Caregiver agrees with plan: Yes Advised patient/caregiver to: call office back for any new or worsening symptoms; emphasized symptoms that would require immediate ER/UC visit as per guideline in [place] Patient/Caregiver demonstrates understanding via teach back: Yes documented in this encounter Plan of Treatment Upcoming Encounters Date Type Department Care Team (Latest Contact Info) Description 06/30/2024 9:45 AM EST Hospital Encounter [place] [address] Flor Velasco MD [facility] [place] [address] 06/30/2024 9:45 AM EST - 06/30/2024 10:45 AM EST Surgery Gastroenterology at [place] [address] Flor Velasco MD [facility] [place] [address] COLONOSCOPY, DIAGNOSTIC (WRVU 3.26) 07/27/2024 8:00 AM EST TH Visit (TeleHealth) [place] [address] Unruly Ramirez MD [facility] [place] [address] 08/03/2024 3:00 PM EST Office Visit Neurology at [address] [phone] Melvin Ramírez MD [facility] [place] [address] 08/25/2024 1:45 PM EDT Office Visit Rheumatology at [address] Keven Church MD [facility] [place] [address] Scheduled Procedures Name Priority Associated Diagnoses Date/Ti il COLONOSCOPY, DIAGNOSTIC (WRV U 3.26) Hematochezia 06/30/2024 9:45 AM EST documented as of this encounter Visit Diagnoses Not on filedocumented in this encounter Care Teams Weed Eradicator Relationship Specialty Start Date End Date Geraldo Gracia DNP [employer] [address] [place] [address] PCP - General Family Medicine 12/27/19 01/21/21 documented as of this encounter
--- OUTSIDE RECORDS SUMMARY | 2024-06-23 18:22 | XMS_ITS | Encounter Summary ---
[place] [address] Care Team Providers Care Trailer Rental Clerk Name Role Phone Geraldo Gracia [facility] Primary Care Provider [phone] Encounter Details Date Type Department Care Team (Latest Contact Info) Description 08/26/2020 3:30 PM EDT Procedure [place] [address] Vanessa Randhawa MD [facility] [place] [address] Elevated liver enzymes Social History Tobacco Use [...] as of this encounter Progress Notes * Vanessa Randhawa MD - 08/26/2020 3:30 PM EDT Gastroenterology and Hepatology Follow Up Note Patient: Karolina Mcintyre Maurice Brendon : 1975 Provider: Vanessa Randhawa MD Problem List: Postive SMA Interval History: She is here today for a fibroscan. Current Outpatient Medications Medication Sig Dispense Refill ??? DULoxetine DR (Cymbalta) 30 mg Capsule, Delayed Release(E.C.) Take 30 mg by mouth daily. ??? tacrolimus (PROTOPIC) 0.1 % Ointment Apply topically to rash twice daily as needed. 30 g 3 ??? traZODone (Desyrel) 50 mg Tablet Take 25 mg by mouth nightly. ??? magnesium 250 mg Tablet Take 1,000 mg by mouth nightly. ??? calcium citrate (Calcitrate) 200 mg (950 mg) Tablet Take 600 tablets by mouth daily. ??? busPIRone (BUSPAR) 10 mg Tablet Take 10 mg by mouth daily. 0 ??? DULCOLAX, BISACODYL, ORAL Take 1 tablet by mouth daily. ??? multivitamin (THERAGRAN) Tablet Take 1 tablet by mouth daily. ??? amitriptyline (ELAVIL) 100 mg Tablet Take 25 mg by mouth nightly. 0 ??? ibuprofen (ADVIL;MOTRIN) 600 mg tablet 600mg, PO, Three times daily - PRN No current facility-administered medications for this visit. Exam: Looks well Fibroscan Results: Mean kPa: 7.4 Mean IQR: 16% (goal is <30 %) Success rate: 100% (goal is >60%) Predicted fibrosis stage: F1 CAP: 201 Assessment and Plan: Follow up with Dr. Bianchi. Recommend continued monitoring of liver enzymes and repeat fibroscan in 6-12 months. Vanessa Randhawa MD Section of Gastroenterology & Hepatology [address] [place] [address] Cc: Geraldo Gracia APRN documented in this encounter Procedure Notes * Vanessa Randhawa MD - 08/26/2020 3:30 PM EDTAssociated Order(s): FIBROSCAN Procedure(s): FIBROSCAN Pre-Procedure Diagnose(s): Elevated liver enzymes [facility] Liver Fibrosis Assessment Report Indication: Positive SMA Performed by: Vanessa Randhawa MD Procedure: Vibration Controlled Transient Elastography (VCTE) or Fibroscan [place] Protocol: Patient's identity, procedure and site were verified, confirmatory pause performed. Discussed procedure including risks and potential complications. Questions answered. Patient verbalizes understanding and wishes to proceed with Fibroscan assessment. Patient was placed in the supine position with right arm in maximum abduction to allow optimal exposure of right lateral abdomen. Patient was briefly assessed. Testing was performed in the mid-axillary location. 50Hz Shear Wave pulses were applied and the resulting Shear Wave and Propagation Speed was detected with a 3.5MHz ultrasonic signal, using the Fibroscan probe. Skin to liver capsule distance and liver parenchyma were accessed during the entire examination with the Fibroscan probe. Patient was instructed to breathe normally and abstain from sudden movements during the procedure. At least ten Sheer Waves were produced; individual measurements of each Shear Wave were calculated. Patient tolerated the procedure well with no complications. Fibroscan Results: Median kPa: 7.4 Mean IQR: 16% (goal is <30 %) Number of valid measurements: 13 (at least 10 required) Number of invalid measurements: 0 Predicted fibrosis stage: F1 CAP (dB/m): 201 Estimated steatosis grade: 0-1/3 % hepatocytes affected: <33% Interpretation: Based on this Fibroscan result, history, clinical examination and review of laboratory and radiological data, this patient likely has stage F1 liver fibrosis. documented in this encounter Plan of Treatment Upcoming Encounters Date Type Department Care Team (Latest Contact Info) Description 06/30/2024 9:45 AM EST Hospital Encounter [place] [address] Flor Velasco MD [facility] [place] [address] 06/30/2024 9:45 AM EST - 06/30/2024 10:45 AM EST [place] [address] Flor Velasco MD [facility] [place] [address] COLONOSCOPY, DIAGNOSTIC (WRVU 3.26) 07/27/2024 8:00 AM EST TH Visit (TeleHealth) [place] [phone] Unruly Ramirez MD [facility] [place] [address] 08/03/2024 3:00 PM EST Office Visit Neurology at [address] [phone] Melvin Ramírez MD [facility] [address] 08/25/2024 1:45 PM EDT Office [place] [address] Keven Church MD [facility] [place] [address] Scheduled Procedures Name Priority Associated Diagnoses Date/Ti me COLONOSCOPY, DIAGNOSTIC (WRV U 3.26) Hematochezia 06/30/2024 9:45 AM EST documented as of this encounter Procedures Procedure Name Priority Date/Time Associated Diagnosis Comments [id number] Routine 08/26/2020 3:30 PM EDT Elevated liver enzymes documented in this encounter Results * [id number] (08/26/2020 3:30 PM EDT) Narrative Vanessa Randhawa MD - 08/26/2020 3:30 PM EDT Vanessa Randhawa MD ? 08/26/2020 ??3:49 PM [facility] Liver Fibrosis Assessment Report Indication: ?? Positive SMA Performed by: ??Vanessa Randhawa MD Procedure: Vibration Controlled Transient Elastography (VCTE) or Fibroscan [place] Protocol: Patient's identity, procedure and site were verified, confirmatory pause performed. Discussed procedure including risks and potential complications. Questions answered. Patient verbalizes understanding and wishes to proceed with Fibroscan assessment. Patient was placed in the supine position with right arm in maximum abduction to allow optimal exposure of right lateral abdomen. Patient was briefly assessed. Testing was performed in the mid-axillary location. 50Hz Shear Wave pulses were applied and the resulting Shear Wave and Propagation Speed was detected with a 3.5MHz ultrasonic signal, using the Fibroscan probe. Skin to liver capsule distance and liver parenchyma were accessed during the entire examination with the Fibroscan probe. Patient was instructed to breathe normally and abstain from sudden movements during the procedure. At least ten Sheer Waves were produced; individual measurements of each Shear Wave were calculated. Patient tolerated the procedure well with no complications. Fibroscan Results: Median kPa: 7.4 Mean IQR: 16% (goal is <30 %) Number of valid measurements: 13 (at least 10 required) Number of invalid measurements: 0 Predicted fibrosis stage: F1 CAP (dB/m): 201 Estimated steatosis grade: 0-1/3 % hepatocytes affected: <33% Interpretation: Based on this Fibroscan result, history, clinical examination and review of laboratory and radiological data, this patient likely has stage F1 liver fibrosis. Vanessa Randhawa MD PROCEDURE/MINOR SURG ICAL ORDERABLES documented in this encounter Visit Diagnoses Diagnosis Elevated liver enzymes Nonspecific elevation of levels of transaminase or lactic acid dehydrogenase (LDH) Hematochezia Blood in stool documented in this encounter Additional Health Concerns Infection Onset Date Last Indicated Resolved Time Rule Out C. difficile 08/26/2020 08/25/20202020 2:12 PM EDT documented as of this encounter Care Teams Trailer Rental Clerk Relationship Specialty Start Date End Date Geraldo Gracia DNP [address] [place] [address] PCP - General Family Medicine 12/27/19 01/21/21 documented as of this encounter
--- OUTSIDE RECORDS SUMMARY | 2024-06-23 18:22 | XMS_ITS | Encounter Summary ---
Author Organization [facility] Address [facility] [place] [address] Care Team Providers Care Data Scientist Name Role Phone Geraldo Gracia [facility] Primary Care Provider [phone] Reason for Visit * Auth/Cert Specialty Diagnoses / Procedures Referred By Mikaela costa Referred To Contact Diagnoses History of celiac disease Chronic diarrhea Gastroesophageal reflux history of celiac disease, Chronic diarrhea x 1 month, new onset GERD in the last month Procedures PRO UPPER GI ENDOSCOPY, DIAGNOSTIC PRO COLONOSCOPY, DIAGNOSTIC PRO UPPER GI ENDOSCOPY, BIOPSY PRO UP GI ENDOSCOPY, REMV TUMOR, SNARE PRO COLONOSCOPY, BIOPSY PRO COLONOSCOPY, REMV LESN, SNARE EGD, UPPER GI ENDOSCOPY COLONOSCOPY, DIAGNOSTIC Referral ID Status Reason Start Date Expiration Date Visits Re quested Visits Authorized [id number] 1 1 Encounter Details Date Type Department Care Team (Latest Contact Info) Description 08/26/2020 10:02 AM EDT - 08/26/2020 1:07 PM EDT Hospital [place] [address] Tom Hyatt MD [facility] [place] [address] Diarrhea Discharge Disposition: Home Social History Tobacco Use [...] Sign Reading Time Taken Comments Blood Pressure 94/62 08/26/2020 12:40 PM EDT Pulse 82 08/26/2020 12:00 PM EDT Temperature 36.3 ??C (97.3 ??F) 08/26/2020 10:25 AM E DT Respiratory Rate 20 08/26/2020 12:00 PM EDT Oxygen Saturation 100% 08/26/2020 12:40 PM EDT Inhaled Oxygen Concentration - - Weight - - Height - - Body Mass Index - - documented in this encounter Medications at Time of Discharge Medication Sig Dispensed Refills Start Date End Date traZODone (Desyrel) 50 mg Tablet Take 25 mg by mouth nightly. magnesium 250 mg Tablet Take 500 mg by mouth nightly. amitriptyline (Elavil) 25 mg Tablet Take 12.5 mg by mouth nightly. 0 10/17/[address] (Cymbalta) 30 mg Capsule, Delayed Release(E.C.) Take 30 mg by mouth daily. 12/24/2021 tacrolimus (PROTOPIC) 0.1 % OintmentIndications:Lj rgic contact dermatitis due to other agents,Eczema, unspecified type Apply topically to rash twice daily as needed. 30 g 3 07/02/2020 10/21/2020 calcium citrate (Calcitrate) 200 mg (950 mg) Tablet Take 1 tablet by mouth daily. 06/08/2022 multivitamin (THERAGRAN) Tablet Take 1 tablet by mouth daily. 11/15/2023 ibuprofen (ADVIL;MOTRIN) 600 mg tablet 600mg, PO, Three times daily - PRN 07/13/2006 10/02/2020 documented as of this encounter H&P Notes * Mathew Bianchi MD - 08/26/2020 10:46 AM EDT Gastroenterology and Hepatology Pre-Procedure History and Physical Exam Procedure: EGD: Colonoscopy: Indication: celiac disease, diarrhea Patient Active Problem List Diagnosis Code ??? Constipation K59.00 ??? Diarrhea R19.7 EXAM: HEENT: Airway examined, oropharynx clear Mallampati Score: I (soft palate, uvula, fauces, tonsillar pillars visible) LUNGS: Clear to auscultation HEART: Regular rate and rhythm, normal S1, S2 ABDOMEN: Normal bowel sounds, soft, non tender, non distended A/P Proceed with the planned endoscopic procedure. ASA 2 - Patient with mild systemic disease with no functional limitations Sedation Plan: moderate (conscious sedation) Risks and benefits of the procedure explained to the patient. Consent signed. documented in this encounter Miscellaneous Notes * Op Note - Tom Hyatt MD - 08/26/2020 10:[address] [facility] Operative Note Patient Name: Karolina Olivas : [id number] MR#: [id number] Case Date: 08/26/2020 Surgeon: Surgeon(s) and Role: * Tom Hyatt MD - Primary * Mathew Bianchi MD - Fellow Preoperative diagnosis: history of celiac disease, Chronic diarrhea x 1 month, new onset GERD in the last month Postoperative diagnosis: * No post-op diagnosis entered * Procedure(s): EGD WITH BIOPSY (WRVU 2.49) COLONOSCOPY FLEXIBLE, WITH BX (WRVU 3.66) COLONOSCOPY; W CONTROL OF BLEEDING, ANY METHOD Please see Provation report for details. documented in this encounter Plan of Treatment Upcoming Encounters Date Type Department Care Team (Latest Contact Info) Description 06/30/2024 9:45 AM EST Hospital [place] [address] Flor Velasco MD [facility] [place] [address] 06/30/2024 9:45 AM EST - 06/30/2024 10:45 AM EST [place] [address] Flor Velasco MD [facility] [place] [address] COLONOSCOPY, DIAGNOSTIC (WRVU 3.26) 07/27/2024 8:00 AM EST TH Visit (TeleHealth) Gastroenterology at [place] [phone] Unruly Ramirez MD [facility] [place] [address] 08/03/2024 3:00 PM EST Office Visit Neurology at [address] [phone] Melvin Ramírez MD [facility] [address] 08/25/2024 1:45 PM EDT Office [place] [address] Keven Church MD [facility] [place] [address] Scheduled Procedures Name Priority Associated Diagnoses Date/Ti nd COLONOSCOPY, DIAGNOSTIC (WRV U 3.26) Hematochezia 06/30/2024 9:45 AM EST documented as of this encounter Procedures Procedure Name Priority Date/Time Associated Diagnosis Comments SURGICAL PATHOLOGY REPORT Routine 08/26/2020 12:03 PM EDT SPECIMEN TO PATHOLOGY Routine 08/26/2020 12:03 PM EDT SPECIMEN TO PATHOLOGY Routine 08/26/2020 12:03 PM EDT SPECIMEN TO PATHOLOGY Routine 08/26/2020 12:03 PM EDT Colonoscopy, Flexible W Control Bleeding, Any Method (76239) 08/26/2020 10:47 AM EDT Diarrhea, unspecified type Colonoscopy, Biopsy (75162) 08/26/2020 10:47 AM EDT Diarrhea, unspecified type Upper Gi Endoscopy, Biopsy ([id number]) 08/26/2020 10:47 AM EDT Diarrhea, unspecified type UPPER GI ENDOSCOPY Routine 08/26/2020 10 :36 AM EDT COLONOSCOPY Routine 08/26/2020 10:35 AM EDT documented in this encounter Results * Surgical Pathology Report (08/26/2020 12:03 PM EDT) Final Diagnosis [id number] ? Location: 4T; EA08; A The signing pathologist has (i) examined the relevant preparation(s) for the specimen(s) and (ii) rendered or confirmed the diagnosis(es). . ?Surgical Pathology DIAGNOSIS A - Duodenum, ??biopsy: Duodenal mucosa, negative for diagnostic abnormality ?? . B - Stomach, ??biopsy: Antrum-type mucosa with reactive gastropathy. Body/fundic-typ e mucosa, negative for diagnostic abnormality. C - Nontargeted colon, ?? biopsy: Colonic mucosa, negative for diagnostic abnormality. CR-PX Electronically signed by: ??Venancio Denise MD Verified: ??08/30/2020 ?Pathologist Performed at: ??-[facility] Dept. of Pathology, [place], [place] SPECIMEN(S) SUBMITTED A - duodenal bx r/o Celiac, biopsy (1) B - bx stomach r/o H-pylori, biopsy (1) C - non-targeted colon bx r/o Microscopic colitis, biopsy (1) CLINICAL INFORMATION Diarrhea SPECIMEN PROCESSING A - Labeled/Fixativ e: Duodenal rule out celiac, formalin. Quantity/Size: Multiple, ranging 0.1-0.4 cm. Tissue Description: Soft, red-brown tissues. Sections/Proces sing: Submitted en toto ??in 2 cassettes labeled A1-A2. B - Labeled/Fixativ e: Stomach rule out H. pylori, formalin. Quantity/Size: Three, ranging 0.3-0.5 cm. Tissue Description: Soft, casas-brown tissues. Sections/Proces sing: Submitted en toto ??in 1 cassette labeled B1. C - Labeled/Fixativ e: Non-targeted colon Rule out microscopic colitis, formalin. Quantity/Size: Multiple, ranging 0.2-0.5 cm. Tissue Description: Soft, casas tissues. Sections/Proces sing: Submitted en toto ??in 2 cassettes labeled C1-C2. ??MLL 08/30/2020 3:41 PM EDT [facility] GI Biopsy 08/26/2020 12:0 3 PM EDT 08/26/2020 12:03 PM EDT GI Biopsy 08/26/2020 12:0 3 PM EDT 08/26/2020 12:03 PM EDT GI Biopsy 08/26/2020 12:0 3 PM EDT 08/26/2020 12:03 PM EDT Tom Hyatt MD PATHOLOGY/CYTOLOGY O [facility] Performing Organization Address City/[facility]/ZIP Co de Phone Number [facility] [place] [address] * Specimen to Pathology (08/26/2020 12:03 PM EDT) AP Specimen 08/26/2020 12:0 3 PM EDT 08/26/2020 5:05 PM EDT Narrative [facility] - 08/26/2020 5:05 PM EDT Specimen requisition ordered. ??Separate Pathology report to follow Resulting Agency Comment Spec In Lab Tom Hyatt MD PATHOLOGY/CYTOLOGY O [facility] Performing Organization Address [facility]/ZIP Co de Phone Number [facility] [place] [address] * Specimen to Pathology (08/26/2020 12:03 PM EDT) AP Specimen 08/26/2020 12:0 3 PM EDT 08/26/2020 5:05 PM EDT Narrative [facility] - 08/26/2020 5:05 PM EDT Specimen requisition ordered. ??Separate Pathology report to follow Resulting Agency Comment Spec In Lab Tom Hyatt MD PATHOLOGY/CYTOLOGY O [facility] Performing Organization Address [facility] [place] [address] * Specimen to Pathology (08/26/2020 12:03 PM EDT) AP Specimen 08/26/2020 12:0 3 PM EDT 08/26/2020 5:05 PM EDT Narrative [facility] - 08/26/2020 5:05 PM EDT Specimen requisition ordered. ??Separate Pathology report to follow Resulting Agency Comment Spec In Lab Tom Hyatt MD PATHOLOGY/CYTOLOGY Jung SPARKS Performing Organization Address [facility] [place] [address] * UPPER GI ENDOSCOPY (08/26/2020 10:36 AM EDT) UPPER GI ENDOSCOPY [facility] Endoscopy Procedure Date: 08/26/2020 10:36 AM ? Patient Name: Karolina Olivas ? Date of : 1975 ? Age: 45 ? Order #: [id number] ? Instrument Name: [id number] ? Procedure: ? Upper GI endoscopy Indications: ? Heartburn, Suspected celiac disease Patient Profile: ? 45 yo F with possible celiac disease ? and GERD presents for EGD. Providers: ? Mathew Carvajal, ? Soumya Carter RN, Divya Doherty ? Jose L, In School Suspension Aide Referring MD: ?Arnaldomartha Mccabe Medicines: ? Midazolam 5 mg IV, Fentanyl 150 ? micrograms IV Complications: ? No immediate complications. Procedure: ? Pre-Anesthesia Assessment: ? - Prior to the procedure, a History ? and Physical was performed, and ? patient medications and allergies ? were reviewed. The patient is ? competent. The risks and benefits of ? the procedure and the sedation ? options and risks were discussed with ? the patient. All questions were ? answered and informed consent was ? obtained. Patient identification and ? proposed procedure were verified by ? the physician, the nurse and the ? textile science technician in the pre-procedure area ? in the procedure room. Mental Status ? Examination: alert and oriented. ? Airway Examination: normal ? oropharyngeal airway and neck ? mobility. Respiratory Examination: ? clear to auscultation. CV ? Examination: normal. Prophylactic ? Antibiotics: The patient does not ? require prophylactic antibiotics. ? Prior Anticoagulants: The patient has ? taken no previous anticoagulant or ? antiplatelet agents. ASA Grade ? Assessment: II - A patient with mild ? systemic disease. After reviewing the ? risks and benefits, the patient was ? deemed in satisfactory condition to ? undergo the procedure. The anesthesia ? plan was to use moderate sedation / ? analgesia (conscious sedation). ? Immediately prior to administration ? of medications, the patient was ? re-assessed for adequacy to receive ? sedatives. The heart rate, ? respiratory rate, oxygen saturations, ? blood pressure, adequacy of pulmonary ? ventilation, and response to care ? were monitored throughout the ? procedure. The physical status of the ? patient was re-assessed after the ? procedure. ? The procedure, indications, benefits, ? risks and alternatives were explained ? to the patient. Specifically ? discussed were potential ? complications including, but not ? limited to, bleeding, perforation, ? infection, missing a cancer, and ? adverse medication reactions. The ? Endoscope was introduced through the ? mouth, and advanced to the second ? part of duodenum. The patient ? tolerated the procedure well. The ? upper GI endoscopy was accomplished ? without difficulty. The patient ? tolerated the procedure well. ? Findings: ? The examined esophagus was normal. ? The Z-line was regular and was found 40 cm from the ? incisors. ? The entire examined stomach was normal. Biopsies were ? taken with a cold forceps for Helicobacter pylori ? testing. ? The examined duodenum was normal. Biopsies were taken ? with a cold forceps for histology x6 for celiac ? disease. ? Moderate Sedation: ? Moderate (conscious) sedation was administered by the ? endoscopy nurse and supervised by the endoscopist. ? The following parameters were monitored: oxygen ? saturation, heart rate, blood pressure, and response ? to care. ? I was present during the intraservice time as ? documented by the sedation RN. Impression: ?- Normal esophagus. ? - Z-line regular, 40 cm from the ? incisors. ? - Normal stomach. Biopsied. ? - Normal examined duodenum. Biopsied. Recommendation: ?- Patient has a contact number ? available for emergencies. The signs ? and symptoms of potential delayed ? complications were discussed with the ? patient. Return to normal activities ? tomorrow. Written discharge ? instructions were provided to the ? patient. ? - Await pathology results. ? - Return to GI clinic with Dr. Bianchi ? as previously scheduled. ? - Proceed with colonoscopy as planned. ? Attending Participation: ? I was present and participated during the entire ? procedure, including non-ashraf portions. ? _ Tom Hyatt, 08/26/2020 11:07:42 AM Number of Addenda: 0 Note Initiated On: 08/26/2020 10:36 AM PROVATION 08/26/2020 10:3 6 AM EDT Arnaldo K Rakhra DO GENERAL SURGICAL [facility] DERABLES PROVATION * COLONOSCOPY (08/26/2020 10:35 AM EDT) COLONOSCOPY [facility] Endoscopy Procedure Date: 08/26/2020 10:35 AM ? Patient Name: Karolina Olivas ? Date of : 1975 ? Age: 45 ? Order #: [id number] ? Instrument Name: [id number] ? Procedure: ? Colonoscopy Indications: ? Chronic diarrhea Providers: ? Tom Hyatt, Soumya Castillo ? Emma, MONI, Divya Domingo, ? In School Suspension Aide, Mathew Bianchi Referring MD: ?Arnaldo Mccabe Medicines: ? Fentanyl 100 micrograms IV, Midazolam ? 2 mg IV. See separate EGD report for ? additional sedation given. Complications: ? No immediate complications. Procedure: ? Pre-Anesthesia Assessment: ? - Prior to the procedure, a History ? and Physical was performed, and ? patient medications and allergies ? were reviewed. The patient is ? competent. The risks and benefits of ? the procedure and the sedation ? options and risks were discussed with ? the patient. All questions were ? answered and informed consent was ? obtained. Patient identification and ? proposed procedure were verified by ? the physician, the nurse and the ? textile science technician in the pre-procedure area ? in the procedure room. Mental Status ? Examination: alert and oriented. ? Airway Examination: normal ? oropharyngeal airway and neck ? mobility. Respiratory Examination: ? clear to auscultation. CV ? Examination: normal. Prophylactic ? Antibiotics: The patient does not ? require prophylactic antibiotics. ? Prior Anticoagulants: The patient has ? taken no previous anticoagulant or ? antiplatelet agents. ASA Grade ? Assessment: II - A patient with mild ? systemic disease. After reviewing the ? risks and benefits, the patient was ? deemed in satisfactory condition to ? undergo the procedure. The anesthesia ? plan was to use moderate sedation / ? analgesia (conscious sedation). ? Immediately prior to administration ? of medications, the patient was ? re-assessed for adequacy to receive ? sedatives. The heart rate, ? respiratory rate, oxygen saturations, ? blood pressure, adequacy of pulmonary ? ventilation, and response to care ? were monitored throughout the ? procedure. The physical status of the ? patient was re-assessed after the ? procedure. ? The procedure, indications, benefits, ? risks and alternatives were explained ? to the patient. Specifically ? discussed were potential ? complications including, but not ? limited to, bleeding, perforation, ? infection, missing a cancer, and ? adverse medication reactions. The ? patient was placed in the left ? lateral decubitus position, and a ? digital rectal exam was performed. ? The Colonoscope was inserted in the ? anus and under direct visualization, ? advanced to the cecum, identified by ? the appendiceal orifice. Careful ? inspection was made as the ? colonoscope was withdrawn. The ? colonoscopy was performed without ? difficulty. The patient tolerated the ? procedure well. The quality of the ? bowel preparation was inadequate to ? detect small polyps in the right ? colon. ? Findings: ? A moderate amount of stool was found in the cecum and ? ascending colon, making visualization difficult. The ? terminal ileum was unable to be intubated due to ? looping, despite repositioning. ? The exam was otherwise normal throughout the examined ? colon. Non-targeted biopsies were obtained with a ? cold forceps, throughout the entire colon, to rule ? out microscopic colitis. There was mild oozing from a ? biopsy site in the sigmoid colon, s/p hemoclip x 1 ? with excellent hemostasis achieved. ? Internal hemorrhoids were found during retroflexion. ? The hemorrhoids were moderate. ? Moderate Sedation: ? I was present during the intraservice time as ? documented by the sedation RN. Impression: ?- Preparation of the colon was ? inadequate to detect small polyps in ? the right colon. ? - Overall normal appearing colonic ? mucosa. Biopsied. Hemoclip x 1 to ? biopsy site in sigmoid colon for mild ? oozing. ? - Internal hemorrhoids. Recommendation: ?- Await pathology results. ? - Return to GI clinic as previously ? scheduled. ? - Use imodium 4 mg daily as needed ? for diarrhea symptoms ? Procedure Code(s): ?? --- Professional --- ? 10081, Colonoscopy, flexible; ? diagnostic, including collection of ? specimen(s) by brushing or washing, ? when performed (separate procedure) CPT copyright 2019 [employer]. All rights reserved. The codes documented in this report are preliminary and upon ecg technician review may be revised to meet current compliance requirements. Attending Participation: ? I was present and participated during the entire ? procedure, including non-ashraf portions. ? _ Tom Hyatt, 08/26/2020 12:14:01 PM Number of Addenda: 0 Note Initiated On: 08/26/2020 10:35 AM PROVATION 08/26/2020 10:3 5 AM EDT Arnaldo Mccabe DO GENERAL SURGICAL OR DERABLES [facility]OVATION documented in this encounter Visit Diagnoses Diagnosis Diarrhea- Primary Hematochezia Blood in stool documented in this encounter Admitting Diagnoses Diagnosis Diarrhea documented in this encounter Administered Medications Inactive Administered Medications - up to 3 most recent administrations Medication Order MAR Action Action Date Dose Rate Site lactated ringers infusion 100 mL/hr, Intravenous, CONTINUOUS, Starting on Wed08/26/20 at 1045, Until Wed08/26/20 at 1315, Endoscopy (Day of Procedure) New Bag 08/26/2020 10:47 AM EDT 100 mL/hr 100 mL/hr documented in this encounter Active and Recently Administered Medications Times are shown in EDT. Continuous Medication Order 08/24/2020 08/25/2020 08/26/2020 lactated ringers infusion 100 mL/hr, Intravenous, CONTINUOUS, Starting on Wed08/26/20 at 1045, Until Wed08/26/20 at 1315, Endoscopy (Day of Procedure) 1047 (New Bag - Prov ider: Wan Ferguson RN) PRN Medication Order 08/24/2020 08/25/2020 08/26/2020 fentaNYL (pf) (50 mcg/mL) multi-dose injection (CANCELED) ONCE PRN, Starting on Wed08/26/20 at 1050, Until Wed08/26/20 at 1315, Intra-Operative (Intra-Procedure), Routine 1050 (Given - Provid er: Soumya Carter RN)1053 (Given - Provider: Soumya Carter RN)1056 (Given - Provider: Soumya Carter RN)1106 (Given - Provider: Soumya Carter RN)1130 (Given - Provider: Soumya Carter, RN) midazolam (pf) (Versed) (1 mg/mL) multi-dose injection (CANCELED) ONCE PRN, Starting on Wed08/26/20 at 1050, Until Wed08/26/20 at 1315, Intra-Operative (Intra-Procedure), Routine 1050 (Given - Provid er: Soumya Carter RN)1053 (Given - Provider: Soumya A Odebolt, RN)1056 (Given - Provider: Soumya Carter RN)1058 (Given - Provider: Soumya Carter, RN)1101 (Given - Provider: Soumya Carter, MONI)1106 (Given - Provider: Soumya Carter, RN)1139 (Given - Provider: Soumya Carter RN) documented in this encounter Care Teams Data Scientist Relationship Specialty Start Date End Date Geraldo Gracia DNP [address] [place] [address] PCP - General Family Medicine 12/27/19 01/21/21 documented as of this encounter
--- OUTSIDE RECORDS SUMMARY | 2024-06-23 18:22 | XMS_ITS | Encounter Summary ---
[place] [address] Care Team Providers Care Failure Analysis Engineer Name Role Phone Geraldo Gracia DNP Primary Care Provider Reason for Visit * Reason Onset Date Comments TeleHealth 10/01/2020 Encounter Details Date Type Department Care Team (Late st Contact Info) Description 10/01/2020 Telephone Neurology at [address] [phone] Elizabeth Banerjee APRN [facility] [place] [address] TeleHealth Social History Tobacco Use Types Packs/Day [...] Telephone Encounter - Karely Packer RN - 10/01/2020 3:30 PM EDT Patient was at work and unable to review medications and allergies at this time. documented in this encounter Plan of Treatment Upcoming Encounters Date Type Department Care Team (Latest Contact Info) Description 06/30/2024 9:45 AM EST Hospital Encounter Gastroenterology at [place] [phone] Flor Velasco MD [facility] [address] 06/30/2024 9:45 AM EST - 06/30/2024 10:45 AM EST Surgery Gastroenterology at [place] [phone] Flor Velasco MD [facility] [place] [address] COLONOSCOPY, DIAGNOSTIC (WRVU 3.26) 07/27/2024 8:00 AM EST TH Visit (TeleHealth) [place] [address] Unruly Ramirez MD [facility] [place] [address] 08/03/2024 3:00 PM EST Office Visit Neurology at [address] [phone] Melvin Ramírez MD [facility] [place] [address] 08/25/2024 1:45 PM EDT Office [place] [address] Keven Church MD [facility] [place] [address] Scheduled Procedures Name Priority Associated Diagnoses Date/Ti me COLONOSCOPY, DIAGNOSTIC (WRV U 3.26) Hematochezia 06/30/2024 9:45 AM EST documented as of this encounter Visit Diagnoses Not on filedocumented in this encounter Care Teams Failure Analysis Engineer Relationship Specialty Start Date End Date Geraldo Gracia DNP [address] [place] [address] PCP - General Family Medicine 12/27/19 01/21/21 documented as of this encounter
--- OUTSIDE RECORDS SUMMARY | 2024-06-23 18:22 | XMS_ITS | Encounter Summary ---
[place] [address] Care Team Providers Care Screening Unit Registered Nurse Name Role Phone Geraldo Gracia DNP Primary Care Provider [phone] Reason for Visit * Consultation (Routine) - Closed Specialty Diagnoses / Procedures Referred By Mikaela t Referred To Contact Endocrinology Diagnoses Anti-TPO antibodies present Arnaldo Mccabe, [facility] [place] [address] [facility] [address] [place] [phone] Referral ID Status Reason Start Date Expiration Date V isits Requested Visits Authorized [id number] Closed Consult, Test & Treat 09/10/2020 09/10/2021 1 1 Encounter Details Date Type Department Care Team (Latest Contact Info) Description 10/21/2020 2:45 PM EDT TH Visit (TeleHealth) [place] [phone] Miguel Angel Cooley MD [facility] [place] [address] Subclinical hypothyroidism Social History Tobacco Use Types Packs/Day Years [...] as of this encounter Progress Notes * Miguel Angel Cooley MD - 10/21/2020 2:45 PM EDT TELEHEALTH NEW PATIENT VISIT Patient verbally consents to this telehealth visit and understands that this visit may be billed, similar to a clinic office visit Ms. Karolina Olivas is an 45 y.o. female who presents in consultation for chief complaint of abnormal labs Referred by: Arnaldo Mccabe DO HPI: Patient is referred for discussion of abnormal thyroid function studies. She tells me that prior tothis year, she had no knowledge of any thyroid problems. Acquisition, summation and review of old records: patient is referred by rheumatology and I reviewed those notes in detail. In my review I saw that patient has history of ARNULFO positivity and unclear rheumatologic condition of UCTD vs Lupus, and was recently started on plaquenil. Her thyroid was noted to be mildly enlarged at the rheumatology clinic visit Patient tells me that the working diagnosis she was told by rheumatology is that she does in fact have lupus. Recently, rheumatology ap thyroid function studies which showed a mildly elevated TSH and normal free T4, and elevated TPO antibodies. These labs were drawn in the setting of a constellation of problematic symptoms which included arthragias and headaches. She has been seen in the neurology headache clinic and was started on Emgality with significant improvement in symptoms. Regarding her arthralgias: she has only been taking plaquenil a short time and has not noticed changes. She denies throat pain or difficulty swallowing. She tells me that she has some longstanding cold intolerance as well as constipation. She suffers from dry skin. No hair changes. She denies any use of biotin other that what is in her MVI. She has never taken thyroid hormone. Past Medical History: Diagnosis Date ??? ARNULFO [...] BX performed by Rhett Underwood MD at [facility] ??? PRO COLONOSCOPY, BIOPSY N/A 08/26/2020 COLONOSCOPY FLEXIBLE, WITH BX (WRVU 3.66) performed by Tom Hyatt MD at [facility] ??? PRO COLONOSCOPY, FLEX, W/CONTROL, BLEEDING 08/26/2020 COLONOSCOPY; W CONTROL OF BLEEDING, ANY METHOD performed by Tom Hyatt MD at [facility] ??? PRO UPPER GI ENDOSCOPY, BIOPSY N/A 11/11/2015 EGD WITH BIOPSY performed by Rhett Underwood MD at [facility] ??? PRO UPPER GI ENDOSCOPY, BIOPSY N/A 08/26/2020 EGD WITH BIOPSY (WRVU 2.49) performed by Tom Hyatt MD at [facility] ??? TONSILLECTOMY Social History Socioeconomic History ??? Marital status: Spouse name: Not on file ??? Number of children: 4 ??? Years of education: Not on file ??? Highest education level: Not on file Occupational History ??? Occupation: [employer] Tobacco Use ??? Smoking status: Former Smoker ??? Smokeless tobacco: Never Used ??? Tobacco comment: In high school Vaping Use ??? Vaping Use: Never used Substance and Sexual Activity ??? Alcohol use: Yes Comment: once a month ??? Drug use: No ??? Sexual activity: Not on file Other Topics Concern ??? Not on file Social History Narrative ??? Not on file Social Determinants of Health Financial Resource Strain: ??? Difficulty of Paying Living Expenses: Food Insecurity: ??? Worried About Running Out of Food in the Last Year: ??? Ran Out of Food in the Last Year: Transportation Needs: ??? Lack of Transportation (Medical): ??? Lack of Transportation (Non-Medical): Physical Activity: ??? Days of Exercise per Week: ??? Minutes of Exercise per Session: Notable family medical history: no history of thyroid disease Review of Systems: As described above, otherwise it is negative Current Outpatient Medications: ??? hydrOXYchloroQUINE (Plaquenil) 200 mg Tablet, Take 1 tablet by mouth daily. Indications: systemic lupus erythematosus, an autoimmune disease, Disp: 60 tablet, Rfl: 12 ??? [START ON 11/02/2020] galcanezumab-gnlm (Emgality Pen) 120 mg/mL Pen Injector, Inject 120 mg subcutaneously every 28 days., Disp: 1 mL, Rfl: 5 ??? melatonin 3 mg Tablet, Take by mouth., Disp: , Rfl: ??? naproxen sodium (ANAPROX) 550 mg Tablet, One tablet twice a day as needed for mild to moderate headache. Limit to twice a week., Disp: 30 tablet, Rfl: 5 ??? DULoxetine DR (Cymbalta) 30 mg Capsule, Delayed Release(E.C.), Take 30 mg by mouth daily., Disp: , Rfl: ??? traZODone (Desyrel) 50 mg Tablet, Take 25 mg by mouth nightly., Disp: , Rfl: ??? magnesium 250 mg Tablet, Take 1,000 mg by mouth nightly., Disp: , Rfl: ??? calcium citrate (Calcitrate) 200 mg (950 mg) Tablet, Take 600 tablets by mouth daily., Disp: , Rfl: ??? multivitamin (THERAGRAN) Tablet, Take 1 tablet by mouth daily., Disp: , Rfl: ??? amitriptyline (ELAVIL) 100 mg Tablet, Take 25 mg by mouth nightly., Disp: , Rfl: 0 ??? levothyroxine (Synthroid) 50 mcg Tablet, Take 1 tablet by mouth daily., Disp: 60 tablet, Rfl: 5 ??? SUMAtriptan (Imitrex) 100 mg Tablet, Take one tablet at onset of migraine, may repeat in 2 hours if needed. No more than 2 tabs in 24 hours or 2 days per week., Disp: 9 tablet, Rfl: 3 ??? metoclopramide (Reglan) 10 mg Tablet, One tablet every 6 hours as needed, Disp: 30 tablet, Rfl:3 ??? tacrolimus (PROTOPIC) 0.1 % Ointment, Apply topically to rash twice daily as needed. (Patient not taking: Reported on 09/05/2020), Disp: 30 g, Rfl: 3 Allergies Allergen Reactions ??? Gluten Nausea And Vomiting, Rash and Other (See Comments) Also stomach aches very bad ??? Codeine Phosphate CIS - Nausea/Vomiting ??? Doxycycline Monohydrate CIS - HANDS GET NUMB Physical Exam: General: no acute distress, pleasant, sitting comfortably Face: not round or red Eyes: no lid lag; normal eye movements Neck: no supraclavicular fat pads; trachea midline Respiratory: symmetrical chest expansion, breathing comfortably on room air Psychological: alert/oriented to person, place, time; normal affect; memory intact; normal judgement/insight Radiology Studies: Laboratory Data: Component TSH Free T4 Thyroglob Ab Latest Ref Rng & Units 0.27 - 4.20 mcIU/mL 0.93 - 1.70 ng/dL 0.0 - 40.0 IU/mL 09/05/2020 26.3 08/26/2020 5.96 (H) 1.48 06/19/2020 1.42 05/15/2020 2.64 Component Thyroperox Ab Latest Ref Rng & Units <=34 IU/mL 09/05/2020 982 (H) 08/26/2020 06/19/2020 05/15/2020 Assessment / Plan: 1) subclinical hypothyroidism: Discussed that the recent blood test showing mildly elevated TSH and normal free T4 are consistent with this condition. Discussed that the etiology is Chao's (chronic lymphocytic) thyroiditis given elevated TPO antibody titer. While it is not strongly indicated for many patients to treat subclinical hypothyroidism, because she is having some symptoms consistent with overt hypothyroidism and because her TPO antibody is high (indicating likely progression to overt hypothyroidism in near future), I think it makes the most sense to begin treatment with levothyroxine now and patient agrees with this approach Begin levothyroxine 50 mcg now. Discussed proper way to take the medication Will send lab slip to [facility] to get TSH checked 6 weeks later A note will be sent to the referring provider Clinic policy for new hypothyroidism referrals: we see patients for one time consultation and then provide a plan of care for patient and primary care provider to follow thereafter. Once normal TSH is achieved, patient can have TSH checked yearly by primary care provider Orders Placed This Encounter Procedures ??? TSH Return to clinic as needed It was a pleasure to be involved in the care of Karolina Olivas. If you have any questions about the management and treatment plan as outlined above, or if I can be of further assistance, please do not hesitate to contact me. Sincerely, Miguel Angel Cooley MD [employer] Install[employer] Technicianknee bolter Endocrinology Section [facility] documented in this encounter Plan of Treatment Upcoming Encounters Date Type Department Care Team (Latest Contact Info) Description 06/30/2024 9:45 AM EST Hospital Encounter Gastroenterology at [place] [phone] Flor Velasco MD [facility] [place] [address] 06/30/2024 9:45 AM EST - 06/30/2024 10:45 AM EST Surgery Gastroenterology at [place] [phone] Flor Velasco MD [facility] [place] [address] COLONOSCOPY, DIAGNOSTIC (WRVU 3.26) 07/27/2024 8:00 AM EST TH Visit (TeleHealth) Gastroenterology at [place] [phone] Unruly Ramirez MD [facility] [place] [address] 08/03/2024 3:00 PM EST Office Visit Neurology at [address] [phone] Melvin Ramírez MD [facility] DR [place] [address] 08/25/2024 1:45 PM EDT Office Visit Rheumatology at [place] [phone] Keven Church MD [facility] [place] [address] Scheduled Procedures Name Priority Associated Diagnoses Date/Ti me COLONOSCOPY, DIAGNOSTIC (WRV U 3.26) Hematochezia 06/30/2024 9:45 AM EST documented as of this encounter Visit Diagnoses Diagnosis Subclinical hypothyroidism Other specified acquired hypothyroidism Hematochezia Blood in stool documented in this encounter Care Teams Screening Unit Registered Nurse Relationship Specialty Start Date End Date Geraldo Gracia DNP [facility] [address] [place] [address] PCP - General Family Medicine 12/27/19 01/21/21 documented as of this encounter
--- OUTSIDE RECORDS SUMMARY | 2024-06-23 18:22 | XMS_ITS | Encounter Summary ---
[place] [address] Care Team Providers Care Interpreter Deaf Name Role Phone Geraldo Gracia DNP Primary Care Provider [phone] Reason for Visit * Reason Comments Medication Management Encounter Details Date Type Department Care Team (Late st Contact Info) Description 10/04/2020 Specialty [place] [phone] Alta Davis RPH Social History Tobacco Use Types Packs/Day Years [...] as of this encounter Progress Notes * Alta Davis RPH - 10/04/2020 11:35 AM EDT Specialty Pharmacy Consultation; Alta Davis RPH Comprehensive Medication Management (CMM): [facility] Consult, Opt Out Karolina Olivas Diagnosis: Migraine Therapy Start Date: TBD Contact in person or via telephone: Phone Summary and Recommendations: Karolina Olivas was contacted in regards to a new prescription of Emgality to be filled with the [facility]. Karolina Olivas is aware of how to take this medication and of the prescribed dose. Karolina Olivas has been enrolled in [facility]'s texting platform, [employer], which notifies patients of when their next refill is due. Karolina Olivas will be contacted by the pharmacy for regular MIDAS assessments to assess medication effectiveness. The patient's last MIDAS took place on 10/02/20. Therapy Assessment: Appropriate Therapy: Yes Current Medication Dosing/Route/Frequency: Emgality 120mg/ml SOAJ inject 2 pens subq for 1 dose then inject 1 pen subq every month thereafter Additional equipment/supplies required: Sharps container Care Plan Reviewed and Approved by Pharmacist : Yes Pharmacist Reviewed Medications: No Medications reconciled: No Pharmacist Reviewed Allergies :No Allergies reconciled: No Pharmacist follow-up needed: Yes Informed patient of specialty pharmacy services: Yes -Patient is aware a licensed pharmacist is available 24 hours a day, 7 days a week to discuss medication-related questions or concerns: Yes -Patient verbalizes understanding of the common side effect profile of their medication. The patient is able to call 911 or seek urgent care if signs/symptoms of allergy or harmful adverse reactions occur: Yes Patient understands no changes to current drug regimen were made at the appointment and that the pharmacist is providing recommendations (summary located at top of note) for provider review and follow up. Alta Davis RPH 10/04/20 11:35 AM documented in this encounter Plan of Treatment Upcoming Encounters Date Type Department Care Team (Latest Contact Info) Description 06/30/2024 9:45 AM EST Hospital Encounter [place] [phone] Flor Velasco MD [facility] [place] [address] 06/30/2024 9:45 AM EST - 06/30/2024 10:45 AM EST Surgery [place] [phone] Flor Velasco MD [facility] [place] [address] COLONOSCOPY, DIAGNOSTIC (WRVU 3.26) 07/27/2024 8:00 AM EST TH Visit (TeleHealth) Gastroenterology at [place] [phone] Unruly Ramirez MD [facility] DR [place]STR[place] [address] 08/03/2024 3:00 PM EST Office Visit Neurology at [address] [phone] Melvin Ramírez MD [facility] [address] 08/25/2024 1:45 PM EDT Office Visit Rheumatology at [place] [phone] Keven Church MD [facility] [place] [address] Scheduled Procedures Name Priority Associated Diagnoses Date/Ti me COLONOSCOPY, DIAGNOSTIC (WRV U 3.26) Hematochezia 06/30/2024 9:45 AM EST documented as of this encounter Visit Diagnoses Not on filedocumented in this encounter Care Teams Interpreter Deaf Relationship Specialty Start Date End Date Geraldo Gracia DNP [address] [place] [address] PCP - General Family Medicine 12/27/19 01/21/21 documented as of this encounter
--- OUTSIDE RECORDS SUMMARY | 2024-06-23 18:22 | XMS_ITS | Encounter Summary ---
Author Organization [facility] Address [facility] [place] [address] Care Team Providers Care Dust Collector Ore Crushing Name Role Phone None Primary Care Provider Unavailabl e Encounter Details Date Type Department Care Team (Late st Contact Info) Description 03/17/2021 9:30 AM EDT Office Visit G[place] [address] Herlinda Hillman MD [facility] DR [place] [address] Elevated liver enzymes; Diarrhea, unspecified type; Constipation, unspecified constipation type Social History Tobacco [...] Sign Reading Time Taken Comments Blood Pressure 103/61 03/17/2021 9:24 AM EDT Pulse 99 03/17/2021 9:24 AM EDT Temperature - - Respiratory Rate - - Oxygen Saturation - - Inhaled Oxygen Concentration - - Weight 46.9 kg (103 lb 4.8 oz) 03/17/2021 9:24 A M EDT Height 157.5 cm (5' 2) 03/17/2021 9:24 AM EDT Body Mass Index 18.89 03/17/2021 9:24 AM EDT documented in this encounter Progress Notes * Herlinda Hillman MD - 03/17/2021 9:30 AM EDT [facility] Division of Gastroenterology and Hepatology Outpatient Follow-up Visit History of Present Illness: Karolina Olivas is a 45 y.o. patient with a??past medical history significant for??celiac disease, s/p hysterectomy for abnormal uterine bleeding, migraines,??prior episode of pericarditis and costochondritis,??who was referred to GI in July 2020 for??a positive ARNULFO (1:320) and smooth muscle Ab (1:160). Interval History: - Last seen by Dr. Bianchi in 10/2020; at that time was recently started on Plaquenil for possible SLE - Plan made last visit for LFTs every 3 months with biopsy if they become elevated - Last labs 01/22/2021 with normal LFTs - Seen in December by Rheum, now with diagnosis of UCTD, also endorsing new onset abdominal pain - Seen in November by Neuro for migraines, continued on emgality - Now endorsing several months of throbbing periumbilical abdominal pain that radiates to her back;lasts a couple of hours per day and has occasionally woken her up at night - Pain occurs a few times per week - Has tried taking Tums which doesn't help - Pain not associated at all with eating, only radiates to her back and does not move elsewhere - Also endorsing fluctuating bowel pattern, mostly constipation with BMs every 4-5 days but occasionally going as long as 10 days without a BM - Will take Miralax PRN and sometimes a suppository if it is severe - Also endorsing occasional diarrhea which will last 1-1.5 weeks at a time in which she has 6-7 BMsper day and urgency but no fecal incontinence - Has occasional BRBPR when she is straining but no melena Review of Systems: Constitutional: No weight loss [...] Docs Lab Results Component Value Date WBC 6.0 01/22/2021 HGB 12.5 01/22/2021 HCT 35.9 01/22/2021 MCV 92.1 01/22/2021 PLATELET 187 01/22/2021 Chemistry Component Value Date/Time NA 139 01/22/2021 1300 K 4.0 01/22/2021 1300 CL 102 01/22/2021 1300 CO2 27 01/22/2021 1300 BUN 10 01/22/2021 1300 CREATININE 0.71 01/22/2021 1300 Component Value Date/Time CALCIUM 9.3 01/22/2021 1300 ALKPHOS 35 01/22/2021 1300 AST 21 01/22/2021 1300 ALT 18 01/22/2021 1300 BILITOT 0.2 01/22/2021 1300 Past Endoscopy and relevant studies: EGD 08/26/20: [...] ( 1:320) and smooth muscle Ab (1:160).?? When she was last seen there was some concern for possible AIH and a plan was made for monitoring of her LFTs every 3 months with possible liver biopsy if there is an elevation. Currently her LFTs remain normal and we can continue with [id number] LFTs. While her symptoms do not fit neatly into one clear diagnosis, she most likely has an underlying functional disorder. No red flag symptoms at this time to suggest possible organic etiology or need for urgent imaging. She had an unremarkable EGD/Colonoscopy back in September including negative biopsies for celiac and H.Pylori as well as unremarkable non-targeted colon biopsies. She had an MRE back in 2016 which was unremarkable. Her symptoms are suggestive of possible IBS-M although do not quite fit criteria given that her pain is not associated with or improved by having a bowel movement. Alternatively, she has some of the symptoms consistent with functional dyspepsia, which may be a consideration as well. We can consider a RUQ US at a later date if no improvement to evaluate for biliary colic although her pain is not entirely typical for this either. For now, would try to address her alternating bowel habits conservatively by focusing on her constipation which appears to be her predominant symptom. Recommended using Miralax every other day and titrating as needed depending on her bowel habits. Will get repeat LFTs next month along with follow up TSH and tTG. RECOMMENDATIONS: - Miralax half a capful every other day - Metamucil - LFTs q3 months -- next in late March 2021 - TSH, tTG with next labs Follow up 2 months This case was discussed with Dr. Devin Hillman MD Fellow in Gastroenterology and Hepatology [place] [id number] P: [phone] F: [phone] CC None None * Miguelina Beltran MD - 03/17/2021 9:30 AM EDT ATTENDING ADDENDUM I interviewed and examined Karolina Olivas with Dr. Hillman in clinic today. I have discussed the case with her and confirm the history and ashraf physical findings outlined in this note. The assessment and plan were formulated in discussion with me at the time of this encounter, and I agree with them as documented. Iraida Beltran MD Manager Entcrutcher helper Co-Director, [facility] Section of Gastroenterology [place] [address] documented in this encounter Plan of Treatment Upcoming Encounters Date Type Department Care Team (Latest Contact Info) Description 06/30/2024 9:45 AM EST Hospital Encounter Gastroenter[place] [address] lFor Velasco MD [facility] [address] 06/30/2024 9:45 AM EST - 06/30/2024 10:45 AM EST Surgery Gastroenterology at [place] [phone] Flor Velasco MD [facility] [place] [address] COLONOSCOPY, DIAGNOSTIC (WRVU 3.26) 07/27/2024 8:00 AM EST TH Visit (TeleHealth) G[place] [phone] Unruly Ramirez MD [facility] DR [place] [address] 08/03/2024 3:00 PM EST Office Visit Neurology at [address] [phone] Melvin Ramírez MD [facility] [place] [address] 08/25/2024 1:45 PM EDT Office Visit [place] [phone] Keven Church MD [facility] [place] [address] Scheduled Procedures Name Priority Associated Diagnoses Date/Ti me COLONOSCOPY, DIAGNOSTIC (WRV U 3.26) Hematochezia 06/30/2024 9:45 AM EST documented as of this encounter Results * TSH (04/28/2021 11:38 AM EST) Thyroid Stimulating Hormone 1.22 0.27 - 4.20 mcIU/mL [facility] Comment: Reference Interval (mcIU/mL): Females: ??First Trimester: 0.23-3.88 ??Second Trimester: 0.22-3.90 ??Third Trimester: 0.44-4.66 Blood 04/28/2021 11:3 8 AM EST 04/28/2021 11:53 AM EST Narrative Resulting Agency Comment Spec In Lab L Villa Beltran MD CHEMISTRY ORDERABLES Performing Organization Address City/[facility]/ZIP Co de Phone Number [facility] [place] [address] * Tissue transglutaminase, IgA (04/28/2021 11:38 AM EST) TTG IgA Ab 0.3 0.1 - 10.0 u/ml [facility] Comment: Negative = <7 U/mL Equivocal = 7-10 U/mL Positive = >10 U/mL Blood 04/28/2021 11:3 8 AM EST 04/28/2021 2:06 PM EST Narrative Resulting Agency Comment Spec In Lab L Villa Beltran MD IMMUNOLOGY ORDERABLE S Performing Organization Address City/[facility] Co de Phone Number [facility] [place] [address] documented in this encounter Visit Diagnoses Diagnosis Elevated liver enzymes Nonspecific elevation of levels of transaminase or lactic acid dehydrogenase (LDH) Diarrhea, unspecified type Constipation, unspecified constipation type Hematochezia Blood in stool documented in this encounter Care Teams Dust Collector Ore Crushing Relationship Specialty Start Date End Date None None PCP - General 01/22/21 07/16/21 documented as of this encounter
--- OUTSIDE RECORDS SUMMARY | 2024-06-23 18:22 | XMS_ITS | Encounter Summary ---
[place] [address] Care Team Providers Care Hand Buffing Wheel Former Name Role Phone Geraldo Gracia DNP Primary Care Provider Encounter Details Date Type Department Care Team (Late st Contact Info) Description 10/08/2020 [place] [phone] Arnaldo Mccabe DO Social History Tobacco Use [...] Telephone Encounter - Arnaldo Mccabe DO - 10/08/2020 7:06 PM EDT Karolina sent me pictures that showed classic Raynaud's. Although this could still be primary givenher normal nailfold capillaries last month, cannot rule out if she is again showing signs of UCTD vs SLE. Could make the argument with Raynaud's, chronic pericardial effusion, mildly low complements,and positive ARNULFO (although not associated with rheumatologic specific ab). We discussed HCQ earlierand decided to try it today. My original plan was to see her in 6 months, so we will do a trial of HCQ for 6 months and if no changes, will d/c and continue to monitor off therapy. Will do 200mg qdaygiven her weight. She will make arrangements to see her eye doctor for screening. We also discussed possibility of QT prolongation with amitriptyline and trazadone. She feels they may not be helping so she will work with her PCP on trying to come off of it. She will let me know if other questions/concerns come up. documented in this encounter Plan of Treatment Upcoming Encounters Date Type Department Care Team (Latest Contact Info) Description 06/30/2024 9:45 AM EST Hospital Encounter [place] [address] Flor Velasco MD [facility] [place] [address] 06/30/2024 9:45 AM EST - 06/30/2024 10:45 AM EST [place] [address] Flor Velasco MD [facility] [place] [address] COLONOSCOPY, DIAGNOSTIC (WRVU 3.26) 07/27/2024 8:00 AM EST TH Visit (TeleHealth) [place] [address] Unruly Ramirez MD [facility] [address] [place] [address] 08/03/2024 3:00 PM EST Office Visit Neurology at [place] [address] [place] [address] Melvin Ramírez MD [facility] [address] [place] [address] 08/25/2024 1:45 PM EDT Office [place] [address] Keven Church MD [facility] [place] [address] Scheduled Procedures Name Priority Associated Diagnoses Date/Ti me COLONOSCOPY, DIAGNOSTIC (WRV U 3.26) Hematochezia 06/30/2024 9:45 AM EST documented as of this encounter Visit Diagnoses Not on filedocumented in this encounter Care Teams Hand Buffing Wheel Former Relationship Specialty Start Date End Date Geraldo Gracia, NANNETTE [address] [place] [address] PCP - General Family Medicine 12/27/19 01/21/21 documented as of this encounter
--- OUTSIDE RECORDS SUMMARY | 2024-06-23 18:22 | XMS_ITS | Encounter Summary ---
Author Organization [facility] [place] [address] Care Team Providers Care Car Usher Name Role Phone Geraldo Gracai [facility] Primary Care Provider Encounter Details Date Type Department Care Team (Late st Contact Info) Description 08/28/2020 Orders [place] [phone] Mathew Bianchi MD Elevated liver enzymes; Elevated TSH Social History Tobacco Use Types Packs/Day Years [...] 9:45 AM EST Hospital Encounter [place] [phone] Flor Velasco MD [facility] [place] [address] 06/30/2024 9:45 AM EST - 06/30/2024 10:45 AM EST Surgery Gastroenterology at [place] [phone] Flor Velasco MD [facility] [address] COLONOSCOPY, DIAGNOSTIC (WRVU 3.26) 07/27/2024 8:00 AM EST TH Visit (TeleHealth) Gastroenterology at [place] [phone] Unruly Ramirez MD [facility] [place] [address] 08/03/2024 3:00 PM EST Office Visit Neurology at [address] [phone] Melvin Ramírez MD [facility] [place] [address] 08/25/2024 1:45 PM EDT Office Visit Rheumatology at [place] [phone] Keven Church MD [facility] [place] [address] Scheduled Procedures Name Priority Associated Diagnoses Date/Ti va COLONOSCOPY, DIAGNOSTIC (WRV U 3.26) Hematochezia 06/30/2024 9:45 AM EST documented as of this encounter Visit Diagnoses Diagnosis Elevated liver enzymes Nonspecific elevation of levels of transaminase or lactic acid dehydrogenase (LDH) Elevated TSH Other abnormal blood chemistry Hematochezia Blood in stool documented in this encounter Care Teams Car Usher Relationship Specialty Start Date End Date Geraldo Gracia DNP Elizabeth [address] [place] [address] PCP - General Family Medicine 12/27/19 01/21/21 documented as of this encounter
--- OUTSIDE RECORDS SUMMARY | 2024-06-23 18:22 | XMS_ITS | Encounter Summary ---
Author Organization [facility] [place] [address] Care Team Providers Care Senior Game Advisor Name Role Phone None Primary Care Provider Unavailabl e Encounter Details Date Type Department Care Team (Late st Contact Info) Description 03/07/2021 Refill Neurology at [address] [phone] Elizabeth Banerjee APRN [facility] [place] [address] Social History Tobacco Use Types Packs/Day Years [...] 9:45 AM EST Hospital Encounter [place] [address] Flor Velasco MD [facility] [place] [address] 06/30/2024 9:45 AM EST - 06/30/2024 10:45 AM EST Surgery Gastroenterology at [place] [phone] Flor Velasco MD [facility] [place] [address] COLONOSCOPY, DIAGNOSTIC (WRVU 3.26) 07/27/2024 8:00 AM EST TH Visit (TeleHealth) Gastroenterology at [place] [phone] Unruly Ramirez MD [facility] DR GASTROENTEROLOGY [place] [address] 08/03/2024 3:00 PM EST Office Visit Neurology at [address] [phone] Melvin Ramírez MD [facility] DR [facility] [address] 08/25/2024 1:45 PM EDT Office Visit Rheumatology at [place] [phone] Keven Church MD [facility] [place]AT[place] [address] Scheduled Procedures Name Priority Associated Diagnoses Date/Ti ak COLONOSCOPY, DIAGNOSTIC (WRV U 3.26) Hematochezia 06/30/2024 9:45 AM EST documented as of this encounter Visit Diagnoses Not on filedocumented in this encounter Care Teams Senior Game Advisor Relationship Specialty Start Date End Date None None PCP - General 01/22/21 07/16/21 documented as of this encounter
--- OUTSIDE RECORDS SUMMARY | 2024-06-23 18:22 | XMS_ITS | Encounter Summary ---
[place] [address] Care Team Providers Care Instructor Painting Name Role Phone None Primary Care Provider Unavailabl e Reason for Visit * Reason Comments Follow-up Encounter Details Date Type Department Care Team (Latest Contact Info) Description 01/22/2021 12:00 PM EDT Office [place] [address] Arnaldo Mccabe, DO Undifferentiated connective tissue disease Social History Tobacco [...] Sign Reading Time Taken Comments Blood Pressure 104/65 01/22/2021 11:45 AM EDT Pulse 96 01/22/2021 11:45 AM EDT Temperature 37.1 ??C (98.8 ??F) 01/22/2021 11:45 AM E DT Respiratory Rate 18 01/22/2021 11:45 AM EDT Oxygen Saturation 100% 01/22/2021 11:45 AM EDT Inhaled Oxygen Concentration - - Weight 45.6 kg (100 lb 9.6 oz) 01/22/2021 11:45 AM EDT Height 157.5 cm (5' 2) 01/22/2021 11:45 AM EDT Body Mass Index 18.4 01/22/2021 11:45 AM EDT documented in this encounter Progress Notes * Arnaldo Mccabe DO - 01/22/2021 12:00 PM EDT Rheumatology Outpatient Follow Up Note PCP: Tamie Richards Brendon is a 45 y.o. female PMH celiac [...] capillaries #Chronic pericardial effusion, incidental finding #Costochondritis #Anti-smooth [...] given cream for improvement - ARNULFO at [facility] 1:320 speckled and cytoplasmic, COLBY negative, dsDNA negative, anti-mitochondrial negative, +anti-smooth muscle 1:160, C3 mildly low 86-88, normal C4, TPO 982, TTG negative, APS ab negative - 09/2020 episode of Raynaud's - 12/2020 worsening photosensitivity with fatigue, arthralgias, rash from sun Interval History: - feels she is sleeping better and less stiffness in the AM with HCQ - hasn't seen the eye doctor yet - last Wednesday had to run errands outside, wasn't out much in the sun much but was very hot and did not feel well, took naproxen for headache, increased fatigue - had joint stiffness after getting up from sleeping, couldn't close hands, elbows hurt, feels better today but lasted for 3-4 days - feel better today, feels more stiff in her elbows and knees - eyes have been slightly burry, itchy, no pain - has some dry mouth, has noticed some oral ulcers, can be water blisters or like canker sores (these are more painful) - mid epigastric discomfort, feels like something is twisting that started over the weekend, feels better with sitting up, worse with laying worse - might make it worse after eating - decreased appetite, attributed to heat - headaches are better, seen by neurology ROS (positives in bold): Gen: no fevers, no chills, no night sweats Pulm: no SOB CV: no CP Abd: no abd pain, nausea, no vomiting, no diarrhea MSK: see HPI Family Hx: Mother - unknown Father - cancer Brother - metastatic prostate cancer Cousin - metastatic colon cancer Niece - SLE, diagnosed at age 24 Daughter - hemochromatosis ?? No family history of RA, OA, Sjogren's, Scleroderma, or gout ?? 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 Gen: well appearing, alert and oriented x 3, nad HEENT: NCAT, EOMI, moist mucous membranes, no oral ulcers, normal sclerae, no facial flushing or malar rash present Neck: no cervical LAD Heart: regular rate, no murmurs, rubs or gallops Lungs: clear to auscultation b/l Abd: soft, NT/ND, normoactive bowel sounds Skin: warm and dry, no rheumatologic rashes. Nails: no nail pitting, nailbed erythema, slightly abnormal b/l 4th and l5th Joints: Shoulders: FROM, non-tender to palpation Elbows:FROM Wrists: FROM, no swelling, non-tender Hands: No synovitis, no MCP compression tenderness, full claw and fist Knees: FROM, small effusion b/l, no tenderness Ankles: FROM, non-tender, no effusion Feet: no MTP compression tenderness Labs/Studies: Reviewed. Assessment/Plan: Karolina Olivas is a 45 y.o. female PMH celiac disease, hysterectomy 2/2 abnormal uterine bleeding, migraines, allergies, chronic pericardial effusion in 2018, costochondritis, pectus excavatum, intersitial cystitis??who we are seeing for the continuing management of arthralgias, headac he, and ARNULFO positivity. Unfortunately she has not been doing so well this summer due to increased heat and humidity. She has developed a sun sensitivity as well, including rashes behind her ears and her arm but is quiet currently. This could be UCTD-related but HCQ can also cause a photosensitive rash. I question if she had a flare vs heat exhaustion/injury over the weekend (which latter can present with muscle weakness, cramps, headaches), so I will check some SLE monitoring labs. She exhibits SLE-like features with Raynaud's, hx of chronic pericardial effusion, oral ulcers (although painful, more similar to cankersores), and dry mouth. Also advised to wear sun screen, heat protective clothing, and continue oral hydration. She has new onset abdominal pain that is not reproducible on palpation nor is there obvious abnormalities. Possibly due to GERD? She will reach out to GI to be set up with new provider andwill discuss with her. Also has hx of chronic pericardial effusion, no longer seeing cardiology butshe is asymptomatic from this and she has a normal cardiac exam. Migraines are well controlled withmagnesium and emgality. MRI brain negative for any underlying inflammatory process. PLAN: - Labs today: CBC, CMP, C3, C4, ESR, CRP, dsDNA, UA, Pro:Cr, CK - Continue HCQ 200mg daily - Urged to make eye appointment for retinal screening for HCQ use Follow up 3 months via telehealth Patient was discussed with Dr. Bradley. Arnaldo Mccabe DO Rheumatology Fellow Pager: [phone] * Luis Bradley MD - 01/22/2021 12:00 PM EDT I directly supervised Dr. Mccabe during this office visit. Dr. Mccabe presented the history and physical exam to me. We reviewed the history and pertinent details of her presentation and examination.I agree with the details of the history assessment and therapeutic plan as documented in her note. The assessment and plan were formulated in discussion with me and I agree with them as documented. 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 Features of her presentation include arthralgias, headaches, possible Raynaud's and chronic pericardial effusion. Subclinical hypothyroidism secondary to HT. Positive anti-smooth muscle antibody. Stage I hepatic fibrosis. Treatment with hydroxychloroquine for undifferentiated connective tissue disease. Therapeutic response with hydroxychloroquine. Dosed appropriately per weight. Recent episode of likely photosensitivity versus sun sensitivity with hydroxychloroquine. Systemic symptoms. Major issues addressed: Plan: Continue hydroxychloroquine 200 mg daily. Laboratory test today to look at double-stranded DNA, urinalysis, complement levels, inflammatory markers. Luis Bradley MD [facility] Rheumatology documented in this encounter Plan of Treatment Upcoming Encounters Date Type Department Care Team (Latest Contact Info) Description 06/30/2024 9:45 AM EST Hospital Encounter [place] [address] Flor Velasco MD [facility] [address] 06/30/2024 9:45 AM EST - 06/30/2024 10:45 AM EST Surgery [place] [phone] Flor Velasco MD [facility] [place] [address] COLONOSCOPY, DIAGNOSTIC (WRVU 3.26) 07/27/2024 8:00 AM EST TH Visit (TeleHealth) Gastroenterology at [place] [phone] Unruly Ramirez MD [facility] [place] [address] 08/03/2024 3:00 PM EST Office Visit Neurology at [address] [phone] Melvin Ramírez MD [facility] [place] [address] 08/25/2024 1:45 PM EDT Office [place] [address] Keven Church MD [facility] [place] [address] Scheduled Procedures Name Priority Associated Diagnoses Date/Ti me COLONOSCOPY, DIAGNOSTIC (WRV U 3.26) Hematochezia 06/30/2024 9:45 AM EST documented as of this encounter Procedures Procedure Name Priority Date/Time Associated Diagnosis Comments HC PROTEIN, QUANTITATIVE, URINE Routine 01/22/2021 1:18 PM EDT Undifferentiated connective tissue disease URINALYSIS WITH REFLEX CULTURE Routine 01/22/2021 1:18 PM EDT Undifferentiated connective tissue disease HC C-REACTIVE PROTEIN Routine 01/22/2021 1:00 PM EDT Undifferentiated connective tissue disease HC VENIPUNCTURE Routine 01/22/2021 1:00 PM EDT Undifferentiated connective tissue disease HEMOGRAM Routine 01/22/2021 1:00 PM EDT Undifferentiated connective tissue disease DIFFERENTIAL, AUTOMATED Routine 01/22/2021 1:00 PM EDT Undifferentiated connective tissue disease HC ESR-SEDIMENTATION RATE, BLOOD Routine 01/22/2021 1:00 PM EDT Undifferentiated connective tissue disease HC CBC,PLT & AUTO DIFF Routine 1 1:00 PM EDT Undifferentiated connective tissue disease HC COMPLEMENT,C3 SERUM Routine 1 1:00 PM EDT Undifferentiated connective tissue disease HC COMPLEMENT C4, PLASMA Routine 01/22/2021 1:00 PM EDT Undifferentiated connective tissue disease HC CREATINE PHOSPHOKINASE, SERUM Routine 01/22/2021 1:00 PM EDT Undifferentiated connective tissue disease COMPREHENSIVE METABOLIC PANEL Routine 01/22/2021 1:00 PM EDT Undifferentiated connective tissue disease documented in this encounter Results * (ABNORMAL) Urinalysis with reflex Culture (01/22/2021 1:18 PM EDT) Glucose, Urine Dipstick Negative Negative mg/dL [facility] Protein, Urine Dipstick Negative Negative mg/dL [facility] Bilirubin, Urine Dipstick Negative Negative mg/dL [facility] Comment: Clinical correlation required for positive Urine Bilirubin results as false positive may occur with some drugs and drug related products. If a false positive is suspected a serum total bilirubin should be considered if clinically indicated. Urobilinogen, Urine Dipstick Normal Normal mg/dL [facility] pH, Urn (dipstick) 7.0 5.0 - 8.0 [facility] Blood, Urine Dipstick Negative Negative mg/dL [facility] Ketone, Urine Dipstick Trace(A) Negative mg/dL [facility] Nitrite, Urine Dipstick Negative Negative [facility] Leukocytes, Urine Dipstick Negative Negative [facility] Appearance, Urine Dipstick Clear Clear [facility] Specific [place] Urine Automated 1.018 1.005 - 1.030 [facility] Color, Urine Dipstick Yellow Yellow [facility] Reflex to Culture No [facility] Urine NS 01/22/2021 1:18 PM EDT 01/22/2021 1:22 PM EDT Narrative Resulting Agency Comment Spec In Lab Luis Bradley MD URINE ORDERABLES Performing Organization Address [facility]/ZIP Co de Phone Number [facility] [place] [address] * Protein/Creatinine Ratio, urine (01/22/2021 1:18 PM EDT) Creatinine, Urine 99 mg/dL [facility] Protein, Urine 7 0 - 12 mg/dL [facility] Protein / Creatinine Ratio, Urine <0.1 ratio [facility] Urine 01/22/2021 1:18 PM EDT 01/22/2021 1:21 PM EDT Narrative Resulting Agency Comment Spec In Lab Luis Bradley MD URINE ORDERABLES Performing Organization Address City/[facility]/ZIP Co de Phone Number [facility] [place] [address] * Differential, Automated (01/22/2021 1:00 PM EDT) Neutrophil % 71.6 % [facility] Neutrophil Absolute 4.30 1.70 - 6.10 x10(3)/[facility] Lymph % 15.7 % [facility] Lymphocytes Abs 0.9 0.9 - 3.2 x10(3)/[facility] Monocyte % 8.3 % [facility] Monocyte Abs 0.5 0.3 - 0.9 x10(3)/[facility] Eos % 2.5 % [facility] Eosinophils Abs 0.2 0.0 - 0.4 x10(3)/[facility] Basophil % 1.7 % [facility] Baso Absolute 0.1 0.0 - 0.1 x10(3)/[facility] Immature Gran % 0.20 % [facility] Comment: Immature granulocytes(IG's)percentage and absolute count will include metamyelocytes, myelocytes, and promyelocytes. Blood smears from CBCs yielding IG's will be scanned manually for concordance. If this scan disagrees with the automated IG or if promyelocytes are noted, a manual differential will be performed. Immature Gran Absolute 0.01 0.00 - 0.04 x10(3)/[facility] Blood 01/22/2021 1:00 PM EDT 01/22/2021 1:04 PM EDT Narrative Resulting Agency Comment Spec In Lab Arnaldo Mccabe DO HEMATOLOGY ORDERABL ES [facility] [place] [address] * (ABNORMAL) Hemogram (01/22/2021 1:00 PM EDT) White Blood Cell 6.0 4.0 - 9.5 x10(3)/mc L [facility] Red Blood Cell 3.90(L) 4.00 - 5.21 x10(6)/mc L [facility] Hemoglobin 12.5 11.7 - 15.5 gm/dL [facility] Hematocrit 35.9 35.7 - 45.8 % [facility] Mean Cell Volume 92.1 82.6 - 94.4 fL [facility] Mean Cell Hemoglobin 32.1(H) 27.1 - 32.0 pg [facility] Mean Cell Hemoglobin Concentration 34.8 31.7 - 35.0 gm/dL [facility] Platelet 187 145 - 357 x10(3)/mc L [facility] RDW Standard Deviation 39.8 37.0 - 46.0 fL [facility] RDW coefficient of variation 11.8 11.5 - 14.1 % [facility] Mean Platelet Volume 10.7 7.6 - 12.9 fL [facility] NRBC% auto 0.0 % [facility] NRBC Absolute 0.000 0.000 - 0.000 x10(3)/mc L [facility] Blood 01/22/2021 1:00 PM EDT 01/22/2021 1:04 PM EDT Narrative Resulting Agency Comment Spec In Lab Arnaldo Mccabe DO HEMATOLOGY ORDERABL ES Performing Organization Address [facility]/ZIP Co de Phone Number [facility] [place] [address] * DNA Antibody (Double-Stranded) (01/22/2021 1:00 PM EDT) dsDNA Ab <12.3 <30.0 (Negative) IU/mL [facility] Comment: Negative for dsDNA antibody by enzyme immunoassay. No further testing recommended. Test Performed by: [facility] [place] [address] Tab Cutter: Shay Low M.D. Ph.D.; CLIA# [id number] Blood 01/22/2021 1:00 PM EDT 01/22/2021 4:01 PM EDT Narrative Resulting Agency Comment Spec In Lab Luis Bradley MD LAB SEND OUT ORDERAB LES [facility] [place] [address] * CRP, acute inflammation (01/22/2021 1:00 PM EDT) C-Reactive Protein <3.0 <=4.9 mg/L [facility] Blood 01/22/2021 1:00 PM EDT 01/22/2021 1:04 PM EDT Narrative Resulting Agency Comment Spec In Lab Luis Bradley MD CHEMISTRY ORDERABLES Performing Organization Address City/[facility]/ZIP Co de Phone Number [facility] [place] [address] * Sedimentation rate (01/22/2021 1:00 PM EDT) Sedimentation Rate Automated <3 2 - 37 mm/hr [facility] Comment: Effective May 10, 2019 new capillary photometric technology has resulted in a change in reference ranges. It is recommended that each ESR result be reviewed with its own age appropriate reference range. Blood 01/22/2021 1:00 PM EDT 01/22/2021 1:04 PM EDT Narrative Resulting Agency Comment Spec In Lab Luis Bradley MD HEMATOLOGY ORDERABLE S Performing Organization Address City/[facility]/ZIP Co de Phone Number [facility] [place] [address] * CK (01/22/2021 1:00 PM EDT) Creatine Kinase 59 0 - 160 unit/L [facility] Blood 01/22/2021 1:00 PM EDT 01/22/2021 1:04 PM EDT Narrative Resulting Agency Comment Spec In Lab Luis Bradley MD CHEMISTRY ORDERABLES Performing Organization Address City/[facility]/ZIP Co de Phone Number [facility] [place] [address] * (ABNORMAL) C4 Complement (01/22/2021 1:00 PM EDT) Complement C4 9(L) 10 - 40 mg/dL [facility] Blood 01/22/2021 1:00 PM EDT 01/22/2021 1:04 PM EDT Narrative Resulting Agency Comment Spec In Lab Luis Bradley MD CHEMISTRY ORDERABLES Performing Organization Address City/[facility]/ZIP Co de Phone Number [facility] [place] [address] * (ABNORMAL) C3 Complement (01/22/2021 1:00 PM EDT) Complement C3 75(L) 90 - 180 mg/dL [facility] Blood 01/22/2021 1:00 PM EDT 01/22/2021 1:04 PM EDT Narrative Resulting Agency Comment Spec In Lab Luis Bradley MD CHEMISTRY ORDERABLES Performing Organization Address [facility] Co de Phone Number [facility] [place] [address] * Comprehensive metabolic panel (non-fasting) (01/22/2021 1:00 PM EDT) Pathologist [facility] Glucose 89 65 - 199 mg/dL [facility] Comment:Diabetes: >=200 mg/d L plus symptoms Blood Urea Nitrogen 10 8 - 18 mg/dL [facility] Creatinine 0.71 0.70 - 1.20 mg/dL [facility] Sodium 139 135 - 145 mmol/L [facility] Potassium 4.0 3.5 - 5.0 mmol/L [facility] Comment: Please note: ??Patients with WBC >100,000 may have falsely elevated Potassium levels. ??For accurate Potassium quantification in these patients send serum separator tube (gold top) for subsequent determinations. ??Contact the Clinical Chemistry Laboratory if there are any questions. Chloride 102 98 - 107 mmol/L [facility] Carbon Dioxide 27 22 - 31 mmol/L [facility] Anion Gap 10 5 - 15 mmol/L [facility] Calcium 9.3 8.5 - 10.5 mg/dL [facility] Protein, Total 7.0 6.1 - 8.0 gm/dL [facility] Albumin 4.7 3.2 - 5.2 gm/dL [facility] Aspartate Aminotransferase 21 0 - 30 unit/L [facility] Alanine Aminotransferase 18 0 - 30 unit/L [facility] Alkaline Phosphatase 35 35 - 105 unit/L [facility] Bilirubin, Total 0.2 0.2 - 1.3 mg/dL [facility] Est Glomerular Filtration Rate 102 >=60 mL/min/1. 73 m?? [facility] Comment: This patient? s [...] and symptoms in addition to eGFR. Blood 01/22/2021 1:00 PM EDT 01/22/2021 1:04 PM EDT Narrative Resulting Agency Comment Spec In Lab Luis Bradley MD CHEMISTRY ORDERABLES [facility] [place] [address] documented in this encounter Visit Diagnoses Diagnosis Undifferentiated connective tissue disease Unspecified diffuse connective tissue disease Hematochezia Blood in stool documented in this encounter Care Teams Instructor Painting Relationship Specialty Start Date End Date None None PCP - General 01/22/21 07/16/21 documented as of this encounter
--- OUTSIDE RECORDS SUMMARY | 2024-06-23 18:22 | XMS_ITS | Encounter Summary ---
[place] [address] Care Team Providers Care Dean Of Student Services Name Role Phone Geraldo Gracia DNP Primary Care Provider Encounter Details Date Type Department Care Team (Late st Contact Info) Description 10/30/2020 Telephone [place] [phone] Yelitza Cabello CMA Social History Tobacco Use Types Packs/Day Years [...] encounter Miscellaneous Notes * Telephone Encounter - Yelitza Cabello CMA - 10/30/2020 9:49 AM EDT Called patient to review medications and allergies for their upcoming gastroenterology Type of Appointment: Telehealth appointment. Reach Patient during MA Check: Yes Notes for the provider: Notes for the nurse: documented in this encounter Plan of Treatment Upcoming Encounters Date Type Department Care Team (Latest Contact Info) Description 06/30/2024 9:45 AM EST Hospital Encounter Gastroenterology at [place] [phone] Flor Velasco MD [facility] [place] [address] 06/30/2024 9:45 AM EST - 06/30/2024 10:45 AM EST Surgery Gastroenterology at [place] [phone] Flor Velasco MD [facility] [place] [address] COLONOSCOPY, DIAGNOSTIC (WRVU 3.26) 07/27/2024 8:00 AM EST TH Visit (TeleHealth) [place] [phone] Unruly Ramirez MD [facility] [place] [address] 08/03/2024 3:00 PM EST Office Visit Neurology at [address] [phone] Melvin Ramírez MD [facility] [address] 08/25/2024 1:45 PM EDT Office Visit [place] [phone] Keven Church MD [facility] [place] [place] [address] Scheduled Procedures Name Priority Associated Diagnoses Date/Ti me COLONOSCOPY, DIAGNOSTIC (WRV U 3.26) Hematochezia 06/30/2024 9:45 AM EST documented as of this encounter Visit Diagnoses Not on filedocumented in this encounter Care Teams Dean Of Student Services Relationship Specialty Start Date End Date Geraldo Gracia DNP [address] [place] [address] PCP - General Family Medicine 12/27/19 01/21/21 documented as of this encounter
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
--- OUTSIDE RECORDS SUMMARY | 2024-06-23 18:22 | XMS_ITS | Encounter Summary ---
Author Organization [facility] [place] [address] Care Team Providers Care Sales Development Executive Name Role Phone Geraldo Gracia [facility] Primary Care Provider Encounter Details Date Type Department Care Team (Late st Contact Info) Description 11/21/2020 Orders [place] [phone] Karmen Veras RN Elevated liver enzymes; Autoimmune hepatitis Social History Tobacco Use Types [...] 9:45 AM EST Hospital En[place] [phone] Flor Velasco MD [facility] [place] [address] 06/30/2024 9:45 AM EST - 06/30/2024 10:45 AM EST Surgery Gastroenterology at [place] [phone] Flor Velasco MD [facility] [place] [address] COLONOSCOPY, DIAGNOSTIC (WRVU 3.26) 07/27/2024 8:00 AM EST TH Visit (TeleHealth) Gastroenterology at [place] [phone] Unruly Ramirez MD [facility] [place] [address] 08/03/2024 3:00 PM EST Office Visit Neurology at [address] [phone] Melvin Ramírez MD [facility] [place] [address] 08/25/2024 1:45 PM EDT Office Visit Rheumatology at [place] [phone] Keven Church MD [facility] [place] [address] Scheduled Procedures Name Priority Associated Diagnoses Date/Ti ms COLONOSCOPY, DIAGNOSTIC (WRV U 3.26) Hematochezia 06/30/2024 9:45 AM EST documented as of this encounter Visit Diagnoses Diagnosis Elevated liver enzymes Nonspecific elevation of levels of transaminase or lactic acid dehydrogenase (LDH) Autoimmune hepatitis Hematochezia Blood in stool documented in this encounter Care Teams Sales Development Executive Relationship Specialty Start Date End Date Geraldo Gracia DNP [address] [place] [address] PCP - General Family Medicine 12/27/19 01/21/21 documented as of this encounter
--- OUTSIDE RECORDS SUMMARY | 2024-06-23 18:22 | XMS_ITS | Encounter Summary ---
[place] [address] Care Team Providers Care Supervisor Testing Name Role Phone Geraldo Gracia DNP Primary Care Provider [phone] Encounter Details Date Type Department Care Team (Latest Contact Info) Description 10/30/2020 11:00 AM EDT TH Visit (TeleHealth) [place] [address] Mathew Bianchi MD Elevated liver enzymes Social History Tobacco Use [...] as of this encounter Progress Notes * Mathew Bianchi MD - 10/30/2020 11:00 AM EDT GASTROENTEROLOGY TELEMEDICINE PROGRAM - ESTABLISHED PATIENT VISIT ID: Karolina Mcintyre Maurice Olivas is a 45 y.o. patient with a past medical history significant for celiac disease (diagnosed 4 years ago), s/p hysterectomy for abnormal uterine bleeding, migraines, prior episode of pericarditis and costochondritis, who was referred to GI in July 2020 for a positiveANA (1:320) and smooth muscle Ab (1:160). 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 Medications: Outpatient Medications Prior to Visit Medication Sig Dispense Refill ??? levothyroxine (Synthroid) 50 mcg Tablet Take 1 tablet by mouth daily. 60 tablet 5 ??? hydrOXYchloroQUINE (Plaquenil) 200 mg Tablet Take 1 tablet by mouth daily. Indications: systemic lupus erythematosus, an autoimmune disease 60 tablet 12 ??? [START ON 11/02/2020] galcanezumab-gnlm (Emgality Pen) 120 mg/mL Pen Injector Inject 120 mg subcutaneously every 28 days. 1 mL 5 ??? melatonin 3 mg Tablet Take by [...] Take 25 mg by mouth nightly. 0 No facility-administered medications prior to visit. Allergies: is allergic to gluten, codeine phosphate, and doxycycline monohydrate. Past Medical History: has a past medical history of ARNULFO positive, Anxiety, Back pain, Celiac disease, Costochondritis, Depression, Hearing loss, Hypothyroidism, Interstitial cystitis, Liver fibrosis,Neuropathy, Pectus excavatum, and Pericardial effusion (2018). Past Surgical History: has a past surgical history that includes Upper Gi Endoscopy, Biopsy (48084)(N/A, 11/11/2015); Colonoscopy, Biopsy (93411) (N/A, 11/11/2015); Tonsillectomy; Upper Gi Endoscopy, Biopsy (39389) (N/A, 08/26/2020); Colonoscopy, Biopsy ([id number]) (N/A, 08/26/2020); Colonoscopy, Flex, W/Control, Bleeding (63122) (08/26/2020); and Hysterectomy. Family History: family history includes Asthma in her brother and father; Breast Cancer (age of onset: 69) in her paternal grandmother; Colorectal Cancer (age of onset: 38) in her paternal cousin; Colorectal Cancer (age of onset: 70) in her paternal grandfather; Food Allergy in her child; Migrainesin her daughter; No Known Problems in her mother; Prostate Cancer (age of onset: 50) in her brother; Skin Cancer (age of onset: 30) in her maternal uncle; Uterine Cancer (age of onset: 56) in her paternal aunt. denies family history of colon cancer, IBD, or celiac disease in mother father or other family members Social History: reports that she has quit smoking. She has never used smokeless tobacco. She reports current alcohol use. She reports that she does not use drugs. Physical exam: No Physical Examination performed during this telemedicine visit Laboratory studies, imaging, and procedures (my review of prior records): EGD 08/26/20: Findings: ?The examined esophagus was normal. ?The Z-line was regular and was found 40 cm from the ?incisors. ?The entire examined stomach was normal. Biopsies were ?taken with a cold forceps for Helicobacter pylori ?testing. ?The examined duodenum was normal. Biopsies were taken ?with a cold forceps for histology x6 for celiac ?disease. Colonoscopy 08/26/20: Findings: ? A moderate amount [...] found during retroflexion. ?The hemorrhoids were moderate. Path 08/26/20: A - Duodenum, ??biopsy: Duodenal [...] TTG Ab 02/12/17: 0.8 MRE 02/08/2017: 1. ??No evidence of abnormal small bowel [...] moderate simple ??appearing pericardial effusionof uncertain etiology. EGD 11/11/15: Findings: ?The Z-line was regular and was found 36 cm from the ?incisors. ?The entire examined stomach was normal. ?The examined duodenum was normal. Biopsies for ?histology were taken with a cold forceps for for ?evaluation of celiac disease. ?? Colonoscopy 11/11/15: Findings: ?The perianal and digital rectal examinations were ?normal. ?The terminal ileum appeared normal. ?A diffuse area of granular mucosa??was found in the ?cecum. Biopsies were taken with a cold forceps for ?histology. ?A patchy area of mildly erythematous mucosa was found ?in the rectum. This was biopsied with a cold forceps ?for histology. ?? Path 11/11/15: DIAGNOSIS A - Duodenum, ??biopsy: - Duodenal mucosa within normal limits. B - Cecum, ??biopsy: - Colonic mucosa with melanosis coli. C - Rectum, ??biopsy: - ??Rectal mucosa within normal limits. Assessment/Plan: Ms. Maurice Olivas is a 45 y.o. patient with a past medical history significant for celiac disease (diagnosed 4 years ago), s/p hysterectomy for abnormal uterine bleeding, migraines, prior episodeof pericarditis and costochondritis, who was referred to GI in July 2020 for a positive ARNULFO (1:320) and smooth muscle Ab (1:160). With her predisposition to autoimmune disease, I do wonder if she has underlying autoimmune hepatitis, which can have a waxing/waning nature to it. Her Fibroscan in July 2020 did suggest some mild fibrosis, which does raise the suspicion for an underlying inflammatory disease such as AIH. For now,we should continue to serially monitor LFTs, at least every 3 months, and if at any point her LFTs b ecome elevated, that might be the ideal time to obtain a liver biopsy to further evaluate for AIH. Recommendations: - Recheck LFTs in 1 month and would repeat every 3 months at least (even if normal) - If LFTs abnormal, would likely pursue a liver biopsy to further evaluate for autoimmune hepatitis - Would probably want to repeat a fibroscan in 1 year to ensure no evidence of fibrosis progression - Continue follow up with rheumatology and endocrinology - F/u in GI clinic in 3-4 months Patient discussed with Dr. Devin Bianchi MD [facility] [place] [phone] * Miguelina Beltran MD - 10/30/2020 11:00 AM EDT The patient was seen and examined by Dr. Bianchi. I have reviewed the history, physical, assessment and plan, and I agree with them as documented. documented in this encounter Plan of Treatment Upcoming Encounters Date Type Department Care Team (Latest Contact Info) Description 06/30/2024 9:45 AM EST Hospital En[place] [address] Flor Velasco MD [facility] [place] [address] 06/30/2024 9:45 AM EST - 06/30/2024 10:45 AM EST [place] [address] Flor Velasco MD [facility] [place] [address] COLONOSCOPY, DIAGNOSTIC (WRVU 3.26) 07/27/2024 8:00 AM EST TH Visit (TeleHealth) [place] [address] Unruly Ramirez MD [facility] [place] [address] 08/03/2024 3:00 PM EST Office Visit Neurology at [facility] [address] [place] [address] Melvin Ramírez MD [facility] [place] [address] 08/25/2024 1:45 PM EDT Office [place] [address] Keven Church MD [facility] [address] Scheduled Procedures Name Priority Associated Diagnoses Date/Ti me COLONOSCOPY, DIAGNOSTIC (WRV U 3.26) Hematochezia 06/30/2024 9:45 AM EST documented as of this encounter Visit Diagnoses Diagnosis Elevated liver enzymes Nonspecific elevation of levels of transaminase or lactic acid dehydrogenase (LDH) Hematochezia Blood in stool documented in this encounter Care Teams Supervisor Testing Relationship Specialty Start Date End Date Geraldo Gracia DNP [facility] [address] [place] [address] PCP - General Family Medicine 12/27/19 01/21/21 documented as of this encounter
--- OUTSIDE RECORDS SUMMARY | 2024-06-23 18:22 | XMS_ITS | Encounter Summary ---
Author Organization [facility] [place] [address] Care Team Providers Care Labor Service Representative Name Role Phone Geraldo Gracia DNP Primary Care Provider [phone] Encounter Details Date Type Department Care Team (Latest Contact Info) Description 08/25/2020 2:05 PM EDT - 08/25/2020 11:59 PM EDT Hospital [place] [phone] Diarrhea, unspecified type Discharge Disposition: Home Social History Tobacco Use Types Packs/Day Years Used Date Smoking Tobacco: Former Smokeless Tobacco: Never Comments:In high school Alcohol Use Standard Drinks/Week Comments No 0 (1 standard drink = 0.6 oz pur e alcohol) rarely Sex and Gender Information Value Date Recorded [...] Take 1 tablet by mouth daily. 06/08/2022 busPIRone (BUSPAR) 10 mg Tablet Take 10 mg by mouth daily. 0 01/28/2017 08/26/2020 DULCOLAX, BISACODYL, ORAL Take 1 tablet by mouth daily. 08/26/2020 multivitamin (THERAGRAN) Tablet Take 1 tablet by mouth daily. 11/15/2023 ibuprofen (ADVIL;MOTRIN) 600 mg tablet 600mg, PO, Three times daily - PRN 07/13/2006 10/02/2020 documented as of this encounter Plan of Treatment Upcoming Encounters Date Type Department Care Team (Latest Contact Info) Description 06/30/2024 9:45 AM EST Hospital Encounter [place] [address] Flor Velasco MD [facility] [place] [address] 06/30/2024 9:45 AM EST - 06/30/2024 10:45 AM EST [place] [address] Flor Velasco MD [facility] [place] [address] COLONOSCOPY, DIAGNOSTIC (WRVU 3.26) 07/27/2024 8:00 AM EST TH Visit (TeleHealth) [place] [phone] Unruly Ramirez MD [facility] [place] [address] 08/03/2024 3:00 PM EST Office Visit Neurology at [facility] [address] [place] [address] Melvin Ramírez MD [facility] [place] [place] [address] 08/25/2024 1:45 PM EDT Office [place] [address] Keven Church MD [facility] [place] [address] Scheduled Procedures Name Priority Associated Diagnoses Date/Ti me COLONOSCOPY, DIAGNOSTIC (WRV U 3.26) Hematochezia 06/30/2024 9:45 AM EST documented as of this encounter Procedures Procedure Name Priority Date/Time Associated Diagnosis Comments HC STOOL CULTURE Routine 08/25/2020 4:00 PM EDT Diarrhea, unspecified type CAMPYLOBACTER ANTIGEN Routine 08/25/2020 4:00 PM EDT Diarrhea, unspecified type HC C. DIFF QUIK CHEK ANTIGEN Routine 08/25/2020 4:00 PM EDT Diarrhea, unspecified type HC FECAL CALPROTECTIN Routine 08/25/2020 4:00 PM EDT Diarrhea, unspecified type SHIGA TOXIN ASSAY Routine 08/25/2020 4:0 0 PM EDT Diarrhea, unspecified type STOOL CULTURE Routine 08/25/2020 4:00 PM EDT Diarrhea, unspecified type documented in this encounter Results * Shiga Toxin Detection (08/25/2020 4:00 PM EDT) Shiga Toxin Assay EIA Negative for Shiga Toxin 1 EIA Negative for Shiga Toxin 2 [facility] Stool specimen (specimen) 08/25/2020 4:00 PM EDT 08/26/2020 2:53 PM EDT Narrative Resulting Agency Comment Spec In Lab Mathew Bianchi MD MICROBIOLOGY - GENER AL ORDERABLES Performing Organization Address [facility]/ZIP Co de Phone Number [facility] [place] [address] * Campylobacter Antigen (08/25/2020 4:00 PM EDT) Campylobacter Ag Immunoassay Negative for Campylobacter Antigen [facility] Stool specimen (specimen) 08/25/2020 4:00 PM EDT 08/26/2020 2:53 PM EDT Narrative Resulting Agency Comment Spec In Lab Mathew Bianchi MD MICROBIOLOGY - GENER AL ORDERABLES Performing Organization Address [facility] Co de Phone Number [facility] [place] [address] * Stool culture (08/25/2020 4:00 PM EDT) Stool Culture No enteric pathogens isolated [facility] Stool specimen (specimen) 08/25/2020 4:00 PM EDT 08/26/2020 2:53 PM EDT Narrative Resulting Agency Comment Spec In Lab Mathew Bianchi MD MICROBIOLOGY - GENER AL ORDERABLES Performing Organization Address [facility] Co de Phone Number [facility] [place] [address] * C. Difficile Screen (08/25/2020 4:00 PM EDT) C Diff Interp Negative Negative [facility] Comment: Ag/Tox Neg C. diff?? Negative Clostridium difficile is not present in the specimen. If patient is having diarrhea suspected to be from an infectious cause, then Soap & Water Contact Precautions are still required. Stool specimen (specimen) 08/25/2020 4:00 PM EDT 08/26/2020 2:53 PM EDT Narrative Resulting Agency Comment Spec In Lab Tom Hyatt MD MICROBIOLOGY - GENER AL ORDERABLES Performing Organization Address [facility] de Phone Number [facility] [place] [address] * Calprotectin, Stool (08/25/2020 4:00 PM EDT) Calprotectin, Stool <30 <=79 mcg/gm [facility] Comment: Calprotectin Concentration ? Interpretation ? < 80 mcg/g ?Normal ? 80 ? 160 mcg/g ?Borderline ? >160 mcg/g ?Elevated Stool specimen (specimen) 08/25/2020 4:00 PM EDT 08/26/2020 2:21 PM EDT Narrative Resulting Agency Comment Spec In Lab Tom Hyatt MD BODY FLUIDS AND STOO LS ORDERABLES Performing Organization Address [facility] de Phone Number [facility] [place] [address] documented in this encounter Visit Diagnoses Diagnosis Diarrhea, unspecified type Hematochezia Blood in stool documented in this encounter Care Teams Labor Service Representative Relationship Specialty Start Date End Date Geralod Gracia DNP [address] [place] [address] PCP - General Family Medicine 12/27/19 01/21/21 documented as of this encounter
--- OUTSIDE RECORDS SUMMARY | 2024-06-23 18:22 | XMS_ITS | Encounter Summary ---
[place] [address] Care Team Providers Care Job Hand Name Role Phone Geraldo Gracia [facility] Primary Care Provider [phone] Reason for Visit * Reason Comments Prior Authorization Emgality 120mg/mL SO AJ Encounter Details Date Type Department Care Team (Late st Contact Info) Description 10/03/2020 Specialty [place] [phone] Bernice Arvizu, POCKET FLAP CREASING MACHINE OPERATOR Social History Tobacco Use Types Packs/Day [...] of this encounter Progress Notes * Bernice Godwin - 10/03/2020 2:14 PM EDT [facility], Medication Prior Authorization Patient: Karolina Griffitherson Olivas Patient : 1975 Patient Address: [address] [facility] [address] (home) Medication Name: EMGALITY PEN 120 MG/ML SUBCUTANEOUS PEN INJECTOR Medication ID: [id number] Patient Location: [facility] Patient Location Comment: Subscriber Insurance: [facility] Subscriber Insurance Comment: Fax: Physician: CHARLIE AWAN Physician Comment: Sent Via: AFINOS Brasher: Brasher: ALVARADO Ref/Case/PA#: NA Medication Strength Frequency Requested: Emgality/120mg/30 Qty/Day Supply: New Start: New to Therapy Diagnosis & ICD-10 Code: Chronic Migraine Patient Notified: Yes Submission Notes: PA SUBMITTED VIA [facility] BRASHER: ALVARADO WITH INSTANT APPROVAL. DOCUMENTING IN EDH AND METRICS. Bernice Godwin 10/03/20 2:17 PM * Bernice Godwin - 10/03/2020 2:14 PM EDT [facility], Prior Authorization Approval Medication Name: EMGALITY PEN 120 MG/ML SUBCUTANEOUS PEN INJECTOR Medication ID: [id number] Approval Dates: 10/03/2020 to 10/03/2021 Insurance requirements/notes: NA Other Notes: CaseId:[id number];Status:Approved;Review Type:Prior Auth;Coverage Start Date:09/03/2020;Coverage End Date:10/03/2021; Case/Reference #: NA Approval notification Received via: [facility] Copay: $50.00 Copay assistance: None Copay Notes: GOES THROUGH INSURANCE FOR A $50.00 COPAY. WILL CALL THE PATIENT TO ENROLL IN THE EMGALITY COPAY CARD. Insurance mandated Pharmacy: [facility] Fillable at [facility] Specialty Pharmacy: Yes Pharmacy staff will be reaching out to the patient to inform them of their medication's approval [facility]. If applicable, a pharmacist will speak with the patient to offer our specialty pharmacy services and to arrange delivery of their medication. Bernice Godwin 10/03/20 2:20 PM documented in this encounter Plan of Treatment Upcoming Encounters Date Type Department Care Team (Latest Contact Info) Description 06/30/2024 9:45 AM EST Hospital Encounter [place] [phone] Folr Velasco MD [facility] [place] [address] 06/30/2024 9:45 AM EST - 06/30/2024 10:45 AM EST Surgery [place] [phone] Flor Velasco MD [facility] [place] [address] COLONOSCOPY, DIAGNOSTIC (WRVU 3.26) 07/27/2024 8:00 AM EST TH Visit (TeleHealth) [place] [phone] Unruly Ramirez MD [facility] [place] [address] 08/03/2024 3:00 PM EST Office Visit Neurology at [address] [address] Melvin Ramírez MD [facility] [place] [address] 08/25/2024 1:45 PM EDT Office [place] [phone] Keven Church MD [facility] [place] [address] Scheduled Procedures Name Priority Associated Diagnoses Date/Ti me COLONOSCOPY, DIAGNOSTIC (WRV U 3.26) Hematochezia 06/30/2024 9:45 AM EST documented as of this encounter Visit Diagnoses Not on filedocumented in this encounter Care Teams Job Hand Relationship Specialty Start Date End Date Geraldo Gracia DNP [facility] [address] [place] [address] PCP - General Family Medicine 07/17/21 09/30/22 documented as of this encounter
--- OUTSIDE RECORDS SUMMARY | 2024-06-23 18:22 | XMS_ITS | Encounter Summary ---
[place] [address] Care Team Providers Care Database Reporting Consultant Name Role Phone Gearldo Gracia DNP Primary Care Provider [phone] Encounter Details Date Type Department Care Team (Late st Contact Info) Description 10/01/2020 Telephone [place] [phone] Mathew Bianchi MD Social History Tobacco Use Types Packs/Day [...] encounter Miscellaneous Notes * Telephone Encounter - Mathew Bianchi MD - 10/01/2020 11:57 AM EDT I spoke with Karolina and informed her that I may not be able to make our appointment tomorrow morning due to a family emergency. We did discuss her recent labs, fibroscan, and egd/colon results and I was able to answer her questions to her satisfaction. For now we will keep a close watch on her LFTs and we will treat her diarrhea symptomatically with PRN imodium. If we do not meet tomorrow, we can set up another visit in a few weeks to discuss further. documented in this encounter Plan of Treatment Upcoming Encounters Date Type Department Care Team (Latest Contact Info) Description 06/30/2024 9:45 AM EST Hospital Encounter Gastroenterology at [place] [phone] Flor Velasco MD [facility] [place] [address] 06/30/2024 9:45 AM EST - 06/30/2024 10:45 AM EST [place] [phone] Flor Velasco MD [facility] [place] [place] [address] COLONOSCOPY, DIAGNOSTIC (WRVU 3.26) 07/27/2024 8:00 AM EST TH Visit (TeleHealth) Gastroenterology at [place] [phone] Unruly Ramirez MD [facility] [place] [address] 08/03/2024 3:00 PM EST Office Visit Neurology at [address] [address] Melvin Ramírez MD [facility] [address] [place] [address] 08/25/2024 1:45 PM EDT Office [place] [phone] Keven Church MD [facility] [place] [address] Scheduled Procedures Name Priority Associated Diagnoses Date/Ti me COLONOSCOPY, DIAGNOSTIC (WRV U 3.26) Hematochezia 06/30/2024 9:45 AM EST documented as of this encounter Visit Diagnoses Not on filedocumented in this encounter Care Teams Database Reporting Consultant Relationship Specialty Start Date End Date Geraldo Gracia DNP [facility] [address] [place] [address] PCP - General Family Medicine 12/27/19 01/21/21 documented as of this encounter
--- OUTSIDE RECORDS SUMMARY | 2024-06-23 18:22 | XMS_ITS | Encounter Summary ---
[place] [address] Care Team Providers Care Duralumin Metalworker Name Role Phone Geraldo Gracia [facility] Primary Care Provider [phone] Reason for Visit * Reason Onset Date Comments Appointment 12/26/2020 Encounter Details Date Type Department Care Team (Late st Contact Info) Description 12/26/2020 Telephone Neurology at [address] [phone] Elizabeth Banerjee APRN [facility] [place] [address] Appointment Social History Tobacco Use Types Packs/Day [...] encounter Miscellaneous Notes * Telephone Encounter - Brittany Cheung - 12/26/2020 3:08 PM EDT Scheduling Instructions Provider: Elizabeth Banerjee APRN Visit Type: Telehealth Follow Up (paste MENDOZA Instructions or manually enter): Return in about 3 months (around 03/27/2021) for Followup Televisit Appt Note: 3 month telehealth follow up Additional Info Needed: LVM on patient's cell phone-Sent message to [facility] and an appointment reminder letter to patient's home address documented in this encounter Plan of Treatment Upcoming Encounters Date Type Department Care Team (Latest Contact Info) Description 06/30/2024 9:45 AM EST Hospital Encounter [place] [address] Flor Velasco MD [facility] [place] [place] [address] 06/30/2024 9:45 AM EST - 06/30/2024 10:45 AM EST [place] [phone] Flor Velasco MD [facility] [place] [address] COLONOSCOPY, DIAGNOSTIC (WRVU 3.26) 07/27/2024 8:00 AM EST TH Visit (TeleHealth) [place] [phone] Unruly Ramirez MD [facility] [place] [address] 08/03/2024 3:00 PM EST Office Visit Neurology at [address] [phone] Melvin Ramírez MD [facility] [place] [address] 08/25/2024 1:45 PM EDT Office [place] [phone] Keven Church MD [facility] [place] [address] Scheduled Procedures Name Priority Associated Diagnoses Date/Ti me COLONOSCOPY, DIAGNOSTIC (WRV U 3.26) Hematochezia 06/30/2024 9:45 AM EST documented as of this encounter Visit Diagnoses Not on filedocumented in this encounter Care Teams Duralumin Metalworker Relationship Specialty Start Date End Date Geraldo Gracia DNP [address] [place], [place] [address]MIGUEL ANGEL [address] [place] [address] PCP - General Family Medicine 12/27/19 01/21/21 documented as of this encounter
--- OUTSIDE RECORDS SUMMARY | 2024-06-23 18:22 | XMS_ITS | Encounter Summary ---
[place] [address] Care Team Providers Care Healthcare Representative Name Role Phone Geraldo Gracia [facility] Primary Care Provider Reason for Visit * Reason Onset Date Comments Appointment 09/20/2020 Encounter Details Date Type Department Care Team (Late st Contact Info) Description 09/20/2020 Telephone Neurology at [address] [phone] Elizabeth Banerjee APRN [facility] [place] [address] Appointment Social History Tobacco Use Types Packs/Day [...] encounter Miscellaneous Notes * Telephone Encounter - Zoya Neal - 09/20/2020 12:12 PM EDT Notified patient of MRI appointment that was scheduled for her. documented in this encounter Plan of Treatment Upcoming Encounters Date Type Department Care Team (Latest Contact Info) Description 06/30/2024 9:45 AM EST Hospital Encounter Gastroenterology at [place] [phone] Flor Velasco MD [facility] [place] [address] 06/30/2024 9:45 AM EST - 06/30/2024 10:45 AM EST Surgery Gastroenterology at [place] [phone] Flor Velasco MD [facility] [place] [address] COLONOSCOPY, DIAGNOSTIC (WRVU 3.26) 07/27/2024 8:00 AM EST TH Visit (TeleHealth) [place] [phone] Unruly Ramirez MD [facility] [place] [address] 08/03/2024 3:00 PM EST Office Visit Neurology at [address] [phone] Melvin Ramírez MD [facility] [place] [address] 08/25/2024 1:45 PM EDT Office [place] [address] Keven Church MD [facility] [place] [address] Scheduled Procedures Name Priority Associated Diagnoses Date/Ti me COLONOSCOPY, DIAGNOSTIC (WRV U 3.26) Hematochezia 06/30/2024 9:45 AM EST documented as of this encounter Visit Diagnoses Not on filedocumented in this encounter Care Teams Healthcare Representative Relationship Specialty Start Date End Date Geraldo Gracia DNP [address] [place] [address] PCP - General Family Medicine 12/27/19 01/21/21 documented as of this encounter
--- OUTSIDE RECORDS SUMMARY | 2024-06-23 18:22 | XMS_ITS | Encounter Summary ---
[place] [address] Care Team Providers Care Automobile Mechanic Helper Name Role Phone None Primary Care Provider Unavailabl e Encounter Details Date Type Department Care Team (Late st Contact Info) Description 01/24/2021 Tele[place] [phone] Arnaldo Mccabe DO Social History Tobacco Use [...] Telephone Encounter - Arnaldo Mccabe DO - 01/24/2021 3:26 PM EDT Discussed lab results with Karolina. Abnormal for hypocomplementemia both C3 and C4 suggesting someimmune complex deposition. DsDNA negative, normal inflammatory markers, and no hematologic abnormalities on CBC. CMP normal as is UA. We will continue with HCQ for now. Should she have another flare (which I still believe heat exhaustion played a role), we will discuss further management at that time. documented in this encounter Plan of Treatment Upcoming Encounters Date Type Department Care Team (Latest Contact Info) Description 06/30/2024 9:45 AM EST Hospital Encounter Gastroenterology at [place] [phone] Flor Velasco MD [facility] [place] [address] 06/30/2024 9:45 AM EST - 06/30/2024 10:45 AM EST Surgery Gastroenterology at [place] [phone] Flor Velasco MD [facility] [place] [address] COLONOSCOPY, DIAGNOSTIC (WRVU 3.26) 07/27/2024 8:00 AM EST TH Visit (TeleHealth) [place] [address] Unruly Ramirez MD [facility] [place] [address] 08/03/2024 3:00 PM EST Office Visit Neurology at [address] [phone] Melvin Ramírez MD [facility] [address] [place] [address] 08/25/2024 1:45 PM EDT Office [place] [address] Keven Church MD [facility] [place] [address] Scheduled Procedures Name Priority Associated Diagnoses Date/Ti me COLONOSCOPY, DIAGNOSTIC (WRV U 3.26) Hematochezia 06/30/2024 9:45 AM EST documented as of this encounter Visit Diagnoses Not on filedocumented in this encounter Care Teams Automobile Mechanic Helper Relationship Specialty Start Date End Date None None PCP - General 01/22/21 07/16/21 documented as of this encounter
--- OUTSIDE RECORDS SUMMARY | 2024-06-23 18:22 | XMS_ITS | Encounter Summary ---
Author Organization Formerly [facility], [facility] Address [facility] [place] [address] Care Team Providers Care Wet Suit Gluer Name Role Phone [facility] Primary Care Provider [phone] Reason for Visit * Auth/Cert Specialty Diagnoses [...] Expiration Date Visits Re quested Visits Authorized [id number] 1 1 Encounter Details Date Type Department Care Team (Late st Contact Info) Description 08/26/2020 11:00 AM EDT - 08/26/2020 12:00 PM EDT [place] [address] Tom Hyatt MD [facility] [place] [address] EGD WITH BIOPSY (WRVU 2.39) Social History Tobacco Use Types Packs/Day Years [...] Sign Reading Time Taken Comments Blood Pressure 98/69 08/26/2020 12:00 PM EDT Pulse 82 08/26/2020 12:00 PM EDT Temperature 36.3 ??C (97.3 ??F) 08/26/2020 10:25 AM E DT Respiratory Rate 20 08/26/2020 12:00 PM EDT Oxygen Saturation 100% 08/26/2020 12:00 PM EDT Inhaled Oxygen Concentration - - [...] Hyatt MD - 08/26/2020 10:57 AM EDT [facility] [place] [place] Operative Note Patient Name: Karolina Olivas : [id number] MR#: [id number] Case Date: 08/26/2020 Surgeon: Surgeon(s) and Role: [...] 9:45 AM EST Hospital Encounter [place] [address] Flor Velasco MD [facility] [place] [address] 06/30/2024 9:45 AM EST - 06/30/2024 10:45 AM EST Surgery [place] [address] Flor Velasco MD [facility] [place] [address] COLONOSCOPY, DIAGNOSTIC (WRVU 3.26) 07/27/2024 8:00 AM EST TH Visit (TeleHealth) Gastroenterology at [place] [phone] Unruly Ramirez MD [facility] [place] [address] 08/03/2024 3:00 PM EST Office Visit Neurology at [address] [phone] Melvin Ramírez MD [facility] [place] [address] 08/25/2024 1:45 PM EDT Office [place] [phone] Keven Church MD [facility] [place] [address] Scheduled Procedures Name Priority Associated Diagnoses Date/Ti [...] Colonoscopy, Flexible W Control Bleeding, Any Method (70720) 08/26/2020 10:47 AM EDT Diarrhea, unspecified type Colonoscopy, Biopsy (40058) 08/26/2020 10:47 AM EDT Diarrhea, unspecified type Upper Gi Endoscopy, Biopsy ([id number]) 08/26/2020 10:47 AM EDT Diarrhea, unspecified type UPPER GI ENDOSCOPY Routine 08/26/2020 10 :36 AM EDT COLONOSCOPY Routine 08/26/2020 10:35 AM EDT documented in this encounter Results * Surgical Pathology Report (08/26/2020 12:03 PM EDT) Final Diagnosis [id number] ? Location: 4T; 08; A The signing pathologist has (i) examined [...] Denise MD Verified: ??08/30/2020 ?Pathologist Performed at: ??-[facility] [place] [place] Dept. of Pathology, [place], [place] SPECIMEN(S) SUBMITTED A - duodenal bx [...] labeled C1-C2. ??MLL 08/30/2020 3:41 PM EDT [facility] GI Biopsy 08/26/2020 12:0 3 PM EDT 08/26/2020 12:03 PM EDT GI Biopsy 08/26/2020 12:0 3 PM EDT 08/26/2020 12:03 PM EDT GI Biopsy 08/26/2020 12:0 3 PM EDT 08/26/2020 12:03 PM EDT Tom Hyatt MD PATHOLOGY/CYTOLOGY O BRIDGER [facility] [place] [address] * Specimen to Pathology (08/26/2020 12:03 PM EDT) AP Specimen 08/26/2020 12:0 3 PM EDT 08/26/2020 5:05 PM EDT Narrative [facility] - 08/26/2020 5:05 PM EDT Specimen requisition ordered. ??Separate Pathology report to follow Resulting Agency Comment Spec In Lab Tom Hyatt MD PATHOLOGY/CYTOLOGY O BRIDGER Performing Organization Address City/[facility]/ZIP Co de Phone Number [facility] [place] [address] * Specimen to Pathology (08/26/2020 12:03 PM EDT) AP Specimen 08/26/2020 12:0 3 PM EDT 08/26/2020 5:05 PM EDT Narrative [facility] - 08/26/2020 5:05 PM EDT Specimen requisition ordered. ??Separate Pathology report to follow Resulting Agency Comment Spec In Lab Tom Hyatt MD PATHOLOGY/CYTOLOGY O BRIDGER Performing Organization Address [facility] [place] [address] * Specimen to Pathology (08/26/2020 12:03 PM EDT) AP Specimen 08/26/2020 12:0 3 PM EDT 08/26/2020 5:05 PM EDT Narrative [facility] - 08/26/2020 5:05 PM EDT Specimen requisition ordered. ??Separate Pathology report to follow Resulting Agency Comment Spec In Lab Tom Hyatt MD PATHOLOGY/CYTOLOGY Jung SPARKS Performing Organization Address [facility] [place] [address] * UPPER GI ENDOSCOPY (08/26/2020 10:36 AM EDT) UPPER GI ENDOSCOPY [facility] Endoscopy Procedure Date: 08/26/2020 10:36 AM ? Patient Name: Karolina Olivas ? Date of : 1975 ? Age: 45 ? Order #: [id number] ? Instrument Name: [id number] ? Procedure: ? Upper GI endoscopy Indications: ? Heartburn, Suspected celiac disease Patient Profile: ? 45 yo F with possible celiac disease ? and GERD presents for EGD. Providers: ? Tom Hyatt, Mathew Bianchi, ? Soumya Carter, MONI, Divya Doherty ? Jose L, Unit Clerk Referring MD: ?Arnaldomarium Mccabe Medicines: ? Midazolam 5 mg IV, [...] the physician, the nurse and the ? perinatal technician in the pre-procedure area ? in [...] * COLONOSCOPY (08/26/2020 10:35 AM EDT) COLONOSCOPY [facility] Endoscopy Procedure Date: 08/26/2020 10:35 AM ? Patient Name: Karolina Olivas ? N: [id number] ? Date of : 1975 ? Age: 45 ? Order #: [id number] ? Instrument Name: [id number] ? Procedure: ? Colonoscopy Indications: ? Chronic diarrhea Providers: ? Soumya Carvajal ? Emma, MONI, Divya Domingo, ? Unit Clerk, Mathew Bianchi Referring MD: ?Arnaldo Mccabe Medicines: [...] the physician, the nurse and the ? perinatal technician in the pre-procedure area ? in [...] Procedure Code(s): ?? --- Professional --- ? 01649, Colonoscopy, flexible; ? diagnostic, including collection of ? specimen(s) by brushing or washing, ? when performed (separate procedure) CPT copyright 2019 [employer]. All rights reserved. The codes documented in this report are preliminary and upon internal controls manager review may be revised to meet current [...] this encounter Visit Diagnoses Diagnosis Diarrhea- Primary Diarrhea, unspecified type Hematochezia Blood in stool documented in this encounter Admitting Diagnoses Diagnosis Diarrhea documented in this encounter Administered Medications Inactive Administered Medications - up to 3 most recent administrations Medication Order MAR Action Action Date Dose Rate Site fentaNYL (pf) (50 mcg/mL) multi-dose injection ONCE PRN, Starting on Wed08/26/20 at 1050, Until Wed08/26/20 at 1315, Intra-Operative (Intra-Procedure), Routine Given 08/26/2020 11:30 AM EDT 50 mcg Given 08/26/2020 11:06 AM EDT 50 mcg Given 08/26/2020 10:56 AM EDT 50 mcg lactated ringers infusion 100 mL/hr, Intravenous, CONTINUOUS, Starting on Wed08/26/20 at 1045, Until Wed08/26/20 at 1315, Endoscopy (Day of Procedure) New Bag 08/26/2020 10:47 AM EDT 100 mL/hr 100 mL/hr midazolam (pf) (Versed) (1 mg/mL) multi-dose injection ONCE PRN, Starting on Wed08/26/20 at 1050, Until Wed08/26/20 at 1315, Intra-Operative (Intra-Procedure), Routine Given 08/26/2020 11:39 AM EDT 1 mg Given 08/26/2020 11:06 AM EDT 1 mg Given 08/26/2020 11:01 AM EDT 1 mg documented in this encounter Active [...] Soumya Carter RN)1130 (Given - Provider: Soumya Carter RN) midazolam (pf) (Versed) (1 mg/mL) multi-dose injection (CANCELED) ONCE PRN, Starting on Wed08/26/20 at 1050, Until Wed08/26/20 at 1315, Intra-Operative (Intra-Procedure), Routine 1050 (Given - Provid er: Soumya Carter RN)1053 (Given - Provider: Soumya Carter RN)1056 (Given - Provider: Soumya Carter RN)1058 (Given - Provider: Soumya Carter RN)1101 (Given - Provider: Soumya Carter RN)1106 (Given - Provider: Soumya Carter RN)1139 (Given - Provider: Soumya Carter RN) documented in this encounter Care Teams Wet Suit Gluer Relationship Specialty Start Date End Date Geraldo Gracia DNP [address] [place] [address] PCP - General Family Medicine 12/27/19 01/21/21 documented as of this encounter
--- OUTSIDE RECORDS SUMMARY | 2024-06-23 18:23 | XMS_ITS | Encounter Summary ---
[place] [address] Care Team Providers Care Agriculturist Name Role Phone Keith Ruiz MD Primary [facility] Encounter Details Date Type Department Care Team (Late st Contact Info) Description 02/11/2017 [place] [address] Pato Cunha Social History Tobacco Use Types Packs/Day Years Used Date Smoking Tobacco: Never Alcohol Use Standard Drinks/Week Comments No 0 (1 standard drink = 0.6 oz pur e alcohol) rarely Sex and Gender Information Value Date Recorded Sex Assigned at Female 08/20/2020 6:21 PM EDT Gender Identity Female 08/20/2020 6:21 PM EDT Sexual Orientation Straight 08/20/2020 6: 21 PM EDT documented as of this encounter Miscellaneous Notes * Telephone Encounter - Pato Cunha - 02/11/2017 9:37 AM EDT Received phone call from Pt regarding messages she has left. Pt states she received AVA Rosas's message regarding her MRI being normal but she's slightly backed up. She's wondering how this could be possible as she hasn't eaten in 3 weeks. States she's loosing 1lb per day. Doesn't know how to proceed.Her PCP recommended she see an marine habitat resource specialist and she's wondering if AVA Rosas would recommend this as well. Will forward to AVA Rosas. documented in this encounter Plan of Treatment Upcoming Encounters Date Type Department Care Team (Latest Contact Info) Description 06/30/2024 9:45 AM EST Hospital Encounter Gastroenterology at [place] [phone] Flor Velasco MD [facility] [place] [address] 06/30/2024 9:45 AM EST - 06/30/2024 10:45 AM EST Surgery Gastroenterology at [place] [phone] Flor Velasco MD [facility] [place] [address] COLONOSCOPY, DIAGNOSTIC (WRVU 3.26) 07/27/2024 8:00 AM EST TH Visit (TeleHealth) Gastroenterology at [place] [phone] Unruly Ramirez MD [facility] [place] [address] 08/03/2024 3:00 PM EST Office Visit Neurology at [address] [phone] Melvin Ramírez MD [facility] DR [facility] [place] [address] 08/25/2024 1:45 PM EDT [place] [address] Keven Church MD [facility] [place] [address] Scheduled Procedures Name Priority Associated Diagnoses Date/Ti me COLONOSCOPY, DIAGNOSTIC (WRV U 3.26) Hematochezia 06/30/2024 9:45 AM EST documented as of this encounter Visit Diagnoses Not on filedocumented in this encounter Care Teams Agriculturist Relationship Specialty Start Date End Date Keith Ruiz MD PCP - General 05/12/11 12/26/19 documented as of this encounter
--- OUTSIDE RECORDS SUMMARY | 2024-06-23 18:23 | XMS_ITS | Encounter Summary ---
Author Organization [facility] [place] [address] Care Team Providers Care Physician General Internal Medicine Name Role Phone Keith Ruiz MD Primary Care Provider Unavailab le Reason for Visit * Reason Onset Date Comments Medication Refill 02/22/2017 Encounter Details Date Type Department Care Team (Late st Contact Info) Description 02/22/2017 Refill [place] [address] Kelle Rosas APRN [facility] [place] [address] Chronic constipation Social History Tobacco Use Types Packs/Day Years Used Date Smoking Tobacco: Never Smokeless Tobacco: Never Comments:no smokers in house hold Alcohol Use Standard Drinks/Week Comments No 0 [...] 9:45 AM EST Hospital Encounter [place] [address] Flor Velasco MD [facility] [place] [address] 06/30/2024 9:45 AM EST - 06/30/2024 10:45 AM EST Surgery Gastroenterology at [place] [phone] Flor Velasco MD [facility] [place] [address] COLONOSCOPY, DIAGNOSTIC (WRVU 3.26) 07/27/2024 8:00 AM EST TH Visit (TeleHealth) Gastroenterology at [place] [phone] Unruly Ramirez MD [facility] [place] [address] 08/03/2024 3:00 PM EST Office Visit Neurology at [address] [phone] Melvin Ramírez MD [facility] [address] 08/25/2024 1:45 PM EDT Office [place] [address] Keven Church MD [facility] [place] [address] Scheduled Procedures Name Priority Associated Diagnoses Date/Ti me COLONOSCOPY, DIAGNOSTIC (WRV U 3.26) Hematochezia 06/30/2024 9:45 AM EST documented as of this encounter Visit Diagnoses Diagnosis Chronic constipation Unspecified constipation Hematochezia Blood in stool documented in this encounter Care Teams Physician General Internal Medicine Relationship Specialty Start Date End Date Keith Ruiz MD PCP - General 05/12/11 12/26/19 documented as of this encounter
--- OUTSIDE RECORDS SUMMARY | 2024-06-23 18:23 | XMS_ITS | Encounter Summary ---
Author Organization [facility] [place] [address] Care Team Providers Care Control Panel Operator Crude Unit Name Role Phone Keith Ruiz MD Primary [facility] Encounter Details Date Type Department Care Team (Latest Contact Info) Description 02/16/2017 9:44 AM EDT - 02/16/2017 11:59 PM EDT Hospital Encounter XRay at [address] [place] [address] Kelle Rosas APRN [facility] [place] [address] Upper abdominal pain Discharge Disposition: Home Social History [...] Sig Dispensed Refills Start Date End Date amitriptyline (Elavil) 25 mg Tablet Take 12.5 mg by mouth nightly. 0 10/17/2015 busPIRone (BUSPAR) 10 mg Tablet Take 10 mg by mouth daily. 0 01/28/2017 08/26/2020 DULCOLAX, BISACODYL, ORAL Take 1 tablet by mouth daily. 08/26/2020 multivitamin (THERAGRAN) Tablet Take 1 tablet by mouth daily. 11/15/2023 zolpidem (AMBIEN) 5 mg Tablet take 1 tablet by mouth at bedtime if needed 30 DAY SUPPLY 0 09/19/2015 08/14/2020 ibuprofen (ADVIL;MOTRIN) 600 mg tablet 600mg, PO, Three times daily - PRN 07/13/2006 10/02/2020 documented as of this encounter Plan of Treatment Upcoming Encounters Date Type Department Care Team (Latest Contact Info) Description 06/30/2024 9:45 AM EST Hospital Encounter [place] [address] Flor Velasco MD [facility] [place] [address] 06/30/2024 9:45 AM EST - 06/30/2024 10:45 AM EST Surgery [place] [address] Flor Velasco MD [facility] [place] [address] COLONOSCOPY, DIAGNOSTIC (WRVU 3.26) 07/27/2024 8:00 AM EST TH Visit (TeleHealth) [place] [address] Unruly Ramirez MD [facility] [place] [address] 08/03/2024 3:00 PM EST Office Visit Neurology at [address] [phone] Melvin Ramírez MD [facility] [place] [address] 08/25/2024 1:45 PM EDT Office Visit [place] [address] Keven Church MD [facility] [place] [address] Scheduled Procedures Name Priority Associated Diagnoses Date/Ti me COLONOSCOPY, DIAGNOSTIC (WRV U 3.26) Hematochezia 06/30/2024 9:45 AM EST documented as of this encounter Procedures Procedure Name Priority Date/Time Associated Diagnosis Comments XR FLUORO SMALL BOWEL ONLY Routine 02/16/2017 2:05 PM EDT Upper abdominal pain documented in this encounter Results * XR Fluoro Small Bowel Only (02/16/2017 2:05 PM EDT) Anatomical Region Laterality Modality Abdomen N/A Radio Fluoroscop y Impressions 02/16/2017 4:11 PM EDT Decreased transit time in the distal small bowel. Otherwise, normal small bowel study with no evidence of obstruction, stricture, or dilatation. I have personally reviewed the image(s) and the residents interpretation and agree with the findings, Silvia Sapp MD at 02/16/2017 4:11 PM Narrative 02/16/2017 4:11 PM EDT EXAMINATION: XR FLUORO SMALL BOWEL ONLY CLINICAL HISTORY: n/v abd pain ?obstruction TECHNIQUE: Single contrast small bowel follow through was performed and overhead and fluoroscopic spot films were obtained. Fluoro time: 2.7 minutes COMPARISON: MR abdomen 02/08/2017 FINDINGS: The small bowel is normal in course and caliber, and the terminal ileum was partially visualized in the RIGHT lower quadrant. Peristalsis was delayed in the distal small bowel.Contrast extended into the cecum after a 4 hour waiting period including walking and caffeine. Normal small bowel fold pattern. No stricture was identified. Transit time to the colon was 4 hours. Procedure Note Silvia Sapp MD - 02/16/2017 EXAMINATION: XR FLUORO SMALL BOWEL ONLY CLINICAL HISTORY: n/v abd pain ?obstruction TECHNIQUE: Single contrast small bowel follow through was performed and overheadand fluoroscopic spot films were obtained. Fluoro time: 2.7 minutes COMPARISON: MR abdomen 02/08/2017 FINDINGS: The small bowel is normal in course and caliber, and the terminal ileumwas partially visualized in the RIGHT lower quadrant. Peristalsis was delayedin the distal small bowel.Contrast extended into the cecum after a 4 hourwaiting period including walking and caffeine. Normal small bowel fold pattern. No stricture was identified. Transit time to the colon was 4 hours. IMPRESSION Decreased transit time in the distal small bowel. Otherwise, normal small bowel study with no evidence of obstruction,stricture, or dilatation. I have personally reviewed the image(s) and the residents interpretationand agree with the findings, Silvia Sapp MD at 02/16/2017 4:11 PM Kelle Alison ESCALANTE IMG FLUORO ORDERABLE S documented in this encounter Visit Diagnoses Diagnosis Upper abdominal pain Abdominal pain, other specified site Hematochezia Blood in stool documented in this encounter Administered Medications Inactive Administered Medications - up to 3 most recent administrations Medication Order MAR Action Action Date Dose Rate Site barium sulfate (EZPAQUE) oral suspension 1,900 mL 1,900 mL, Oral, ONCE PRN, 1 dose, Starting on Wed02/16/17 at 1300, Until Wed02/16/17 at 1300, Per Protocol, Routine Given 02/16/2017 1:00 PM EDT 1,900 mLs documented in this encounter Care Teams Control Panel Operator Crude Unit Relationship Specialty Start Date End Date Keith Ruiz MD PCP - General 05/12/11 12/26/19 documented as of this encounter
--- OUTSIDE RECORDS SUMMARY | 2024-06-23 18:23 | XMS_ITS | Encounter Summary ---
Author Organization [place] [id number] Care Team Providers Care Supervisor [employer] Name Role Phone Geraldo Gracia DNP Primary Care Provider [phone] Reason for Visit * Consultation (Routine) - Closed Specialty Diagnoses / Procedures Referred By Mikaela t Referred To Contact Gastroenterology Diagnoses Celiac disease ARNULFO positive BUMP- Hx of celiac disease and likely IBS. ARNULFO positive with anti-smooth muscle antibody positive. Is there a link with anti-smooth muscle ab with celiac? Likelihood to develop autoimmune hepatitis in the future? May also benefit from IBS tx. Arnaldo Mccabe, DO [facility] [place] [address] [facility] [address] [place] [address] Referral ID Status Reason Start Date Expiration Date V isits Requested Visits Authorized [id number] Closed Consult, Test & Treat 06/28/2020 06/28/2021 1 1 Encounter Details Date Type Department Care Team (Latest Contact Info) Description 08/14/2020 9:00 AM EDT TH Visit (TeleHealth) [place] [address] Mathew Bianchi MD Diarrhea, unspecified type; Autoimmune hepatitis Social History [...] this encounter Patient Instructions * Patient Instructions* Mathew Bianchi MD - 08/14/2020 9:00 AM EDT #Question of autoimmune hepatitis - Check lfts, lkm-1 ab, IgG, AMA - Arrange for fibroscan DEBBIE - If LFTs and fibroscan are WNL, would continue to monitor LFTs every 3 months for now, which can be done with her PCP locally. If at any point her LFTs become abnormal, would try to range for an urgent liver biopsy to help maximize the yield of the biopsy (best done when LFTs are abnormal). #Diarrhea - Check cbc, crp, tsh - Check stool culture, c.diff, calprotectin, giardia/crypto Ag - Check serum TTG IgA and total IgA - Ensure no gluten contamination of the food being consumed - Colonoscopy, with random biopsies if otherwise unremarkable #New onset GERD - Initiate pepcid (famotidine) 20 mg twice daily as needed - EGD at time of colonoscopy documented in this encounter Progress Notes * Mathew Bianchi MD - 08/14/2020 9:00 AM EDT [facility] Division of Gastroenterology and Hepatology Outpatient Telehealth Consultation Reason for Visit: Elevated ASMA, diarrhea Referred by Arnaldo Mccabe History of Present Illness: Karolina Olivas is a 45 y.o. female with a past medical history significant for celiac disease (diagnosed 4 years ago), s/p hysterectomy for abnormal uterine bleeding, migraines, episode of pericarditis and costochondritis, who is referred to GI for a positive ARNULFO (1:320) and smooth muscle Ab (1:160). Starting last February developed a facial rash, severe fatigue, arthralgias (knees, elbows, shoulders, ankles), saw rheumatology. An autoimmune panel was checked at the time that showed an elevated ARNULFO and ASMA. Her LFTs at the time were only notable very a very slightly elevated ALT of 31 (last LFTs in 2017 were completely normal). She has never been told that she has had any issues with her liver before. No family history of liver disease. For the last month has also been having new diarrhea. Has been having 6-7 loose watery bowel movements a day, some nocturnal symptoms, very occasional frequency and tenesmus. Rare stomach aches but nothing persistent. No weight loss, appetite has not been great. +Nausea every morning. +Pyrosis. Prior to this, her bowel movements were very unpredictable, sometimes several loose stools, other timesshe could go several days without a bowel movement. She has not seen any blood in the stool. Deniesany recent antibiotic use, travel, or sick contact exposure. As for her celiac disease, she has been on a gluten free diet for many years (says since before herEGD in 2015). Says this was diagnosed on a blood test. Has been very careful to make sure that she is avoiding inadvertent gluten exposure. Review of Systems: 10 systems reviewed and notable for those in HPI. No past medical history on file. Past Surgical History: Procedure Laterality Date ??? PRO COLONOSCOPY, BIOPSY N/A 11/11/2015 COLONOSCOPY FLEXIBLE, WITH BX performed by Rhett Underwood MD at [facility] ENDOSCOPY ??? PRO UPPER GI ENDOSCOPY, BIOPSY N/A 11/11/2015 EGD WITH BIOPSY performed by Rhett Underwood MD at [facility] ENDOSCOPY ??? TONSILLECTOMY Social History: reports that she has quit smoking. She has never used smokeless tobacco. She reports that she does not drink alcohol and does not use drugs. Family History: family history includes Asthma in her brother and father; Breast Cancer (age of onset: 69) in her paternal grandmother; Colorectal Cancer (age of onset: 38) in her paternal cousin; Colorectal Cancer (age of onset: 70) in her paternal grandfather; Food Allergy in her child; Prostate Cancer (age of onset: 50) in her brother; Skin Cancer (age of onset: 30) in her maternal uncle; Uteri ne Cancer (age of onset: 56) in her paternal aunt. Current Outpatient Medications Medication Sig Dispense Refill ??? tacrolimus (PROTOPIC) 0.1 % Ointment Apply topically to rash twice daily as needed. 30 g 3 ??? sertraline (Zoloft) 25 mg Tablet Take 25 mg by mouth Daily. ??? traZODone (Desyrel) 50 mg Tablet Take 25 mg by mouth nightly. ??? magnesium 250 mg Tablet Take 1,000 mg by mouth nightly. ??? calcium citrate (Calcitrate) 200 mg (950 mg) Tablet Take 600 tablets by mouth daily. ??? linaclotide (LINZESS) 145 mcg Capsule Take 1 capsule by mouth daily. (Patient not taking: Reported on 05/15/2020) 24 capsule 0 ??? busPIRone (BUSPAR) 10 mg Tablet Take 10 mg by mouth daily. 0 ??? DULCOLAX, BISACODYL, ORAL Take 1 tablet by mouth daily. ??? multivitamin (THERAGRAN) Tablet Take 1 tablet by mouth daily. ??? amitriptyline (ELAVIL) 100 mg Tablet Take 25 mg by mouth nightly. 0 ??? zolpidem (AMBIEN) 5 mg Tablet take 1 tablet by mouth at bedtime if needed 30 DAY SUPPLY 0 ??? ibuprofen (ADVIL;MOTRIN) 600 mg tablet 600mg, PO, Three times daily - PRN No current facility-administered medications for this visit. Allergies Allergen Reactions ??? Gluten Nausea And Vomiting, Rash and Other (See Comments) Also stomach aches very bad ??? Codeine Phosphate CIS - Nausea/Vomiting ??? Doxycycline Monohydrate CIS - HANDS GET NUMB Physical Examination: This was a telehealth encounter Labs: Reviewed in EDH/Scan Docs Lab Results Component Value Date WBC 4.4 05/15/2020 HGB 12.5 05/15/2020 HCT 37.8 05/15/2020 MCV 93.6 05/15/2020 PLATELET 197 05/15/2020 Chemistry Component Value Date/Time NA 137 05/15/2020 1008 K 3.8 05/15/2020 1008 CL 102 05/15/2020 1008 CO2 25 05/15/2020 1008 BUN 13 05/15/2020 1008 CREATININE 0.82 05/15/2020 1008 Component Value Date/Time CALCIUM 9.4 05/15/2020 1008 ALKPHOS 38 05/15/2020 1008 AST 27 05/15/2020 1008 ALT 31 (H) 05/15/2020 1008 BILITOT 0.3 05/15/2020 1008 Labs 05/15/20: ARNULFO 1:320 ASMA 1:160 DsDNA negative AMA < 0.1 TTG Ab 02/12/17: 0.8 Past Endoscopy: EGD 11/11/15: Findings: ?The Z-line was regular and was found 36 cm from the ?incisors. ?The entire examined stomach was normal. ?The examined duodenum was normal. Biopsies for ?histology were taken with a cold forceps for for ?evaluation of celiac disease. Colonoscopy 11/11/15: Findings: ?The perianal and digital rectal examinations were ?normal. ?The terminal ileum appeared normal. ?A diffuse area of granular mucosa??was found in the ?cecum. Biopsies were taken with a cold forceps for ?histology. ?A patchy area of mildly erythematous mucosa was found ?in the rectum. This was biopsied with a cold forceps ?for histology. Path 11/11/15: DIAGNOSIS A - Duodenum, ??biopsy: - Duodenal mucosa within normal limits. B - Cecum, ??biopsy: - Colonic mucosa with melanosis coli. C - Rectum, ??biopsy: - ??Rectal mucosa within normal limits. Relevant Studies/Imaging: MRE 02/08/2017: IMPRESSION 1. No evidence of abnormal small bowel wall thickening or dilated loops of small bowel. However, resolution limited in the pelvis and RIGHT lower quadrant due to crowding of the loops of bowel. Copious stool noted throughout the colon without areas of colonic wall thickening. RUQ US 01/19/17: ------ LIVER: ------ Right Lobe Length: 12.6 cm Echogenicity/Echotexture: Normal GALLBLADDER: Cholelithiasis: No stones visualized Wall Thickness: 1. mm Focal Tenderness: Negative sonographic Tolentino's sign BILIARY TRACT: Intrahepatic Ducts: Normal Extrahepatic Ducts: Normal Common Duct Size: 2.0 mm --------- PANCREAS: --------- Head: Normal Tail: Poorly visualized due to overlying bowel Body: Normal RIGHT KIDNEY: Size (cm) L: 9.4 Cortical Thickness: Normal Cortical Echogenicity: Normal Hydronephrosis: No sonographic evidence ------ AORTA: ------ Measurements (cm): Proximal AP: 1.9 Mid AP: 1.2 ---- IVC: ---- Normal in caliber where visualized. FLUID COLLECTIONS: Pericardial effusion. IMPRESSION 1. Normal right upper quadrant ultrasound without evidence of cholelithiasis oracute cholecystitis.2. Unexpected finding: Small to moderate simple appearing pericardial effusionof uncertain etiology. IMPRESSION: Karolina Olivas is a 45 y.o. F with a past medical history significant forceliac disease (diagnosed 4 years ago), s/p hysterectomy for abnormal uterine bleeding, migraines, episode of pericarditis and costochondritis, who is referred to GI for a positive ARNULFO (1:320) and smooth muscle Ab (1:160). She also has been having new diarrhea for the last month as well as new GERDsymptoms. As for her positive ARNULFO/ASMA, the titers are elevated enough were it makes me think this is less likely to be a false positive result. There are some associations with autoantibody elevations in patients with celiac disease, but usually the elevations are mild. Her LFTs are fairly unremarkable, butwith autoimmune liver disease we can sometimes see a waxing/waning course of inflammation, so we should continue to keep a close eye on her liver function tests. We can obtain a fibroscan as a noninvasive method of assessing for any underlying liver fibrosis. A liver biopsy might be helpful in the future, but is best done when the LFT's are elevated, to increase the diagnostic yield. For the diarrhea, I do wonder about a possible inflammatory etiology (I.e. infection, ibd, microscopic colitis, etc) given the nocturnal symptoms and urgency. We should check stool studies to rule out infectious causes and I would recommend repeating a colonoscopy as well to further evaluate. At the same time, we should do an EGD for her new pyrosis symptoms as well as repeat duodenal biopsies tofollow up on her celiac disease, and make sure it is still well controlled. RECOMMENDATIONS: #Question of autoimmune hepatitis - Check lfts, lkm-1 ab, IgG - Arrange for fibroscan DEBBIE - If LFTs and fibroscan are WNL, would continue to monitor LFTs every 3 months for now, which can be done with her PCP locally. If at any point her LFTs become abnormal, would try to range for an urgent liver biopsy to help maximize the yield of the biopsy (best done when LFTs are abnormal). #Diarrhea - Check cbc, crp, tsh - Check stool culture, c.diff, calprotectin, giardia/crypto Ag - Check serum TTG IgA and total IgA - Ensure no gluten contamination of the food being consumed - Colonoscopy, with random biopsies if otherwise unremarkable #New onset GERD - Initiate pepcid (famotidine) 20 mg twice daily as needed - EGD at time of colonoscopy, with duodenal biopsies Follow up in 3-4 months This case was discussed with Dr. Olena Bianchi MD [place] [address] P: [phone] F: [phone] Geraldo Gracia APRN [address] [place] [address] documented in this encounter Plan of Treatment Upcoming Encounters Date Type Department Care Team (Latest Contact Info) Description 06/30/2024 9:45 AM EST Hospital Encounter [place] [address] Flor Velasco MD [facility] [place] [address] 06/30/2024 9:45 AM EST - 06/30/2024 10:45 AM EST Surgery Gastroenterology at [place] [id number] Flor Velasco MD [facility] [place] [address] COLONOSCOPY, DIAGNOSTIC (WRVU 3.26) 07/27/2024 8:00 AM EST TH Visit (TeleHealth) Gastroenterology at [place] [id number] Unruly Ramirez MD [facility] [place] [address] 08/03/2024 3:00 PM EST Office Visit Neurology at [address] [phone] Melvin Ramírez MD [facility] [place] [address] 08/25/2024 1:45 PM EDT Office Visit Rheumatology at [place] [phone] Keven Church MD [facility] [place] [address] Scheduled Orders Name Type Priority Associated Diagnoses Orde r Schedule ENDOSCOPY CASE REQUEST: EGD, UPPER GI ENDOSCOPY, COLONOSCOPY, DIAGNOSTIC Procedures Routine Diarrhea, unspecified type Ordered: 08/14/2020 Scheduled Procedures Name Priority Associated Diagnoses Date/Ti me COLONOSCOPY, DIAGNOSTIC (WRV U 3.26) Hematochezia 06/30/2024 9:45 AM EST documented as of this encounter Results * (ABNORMAL) TSH (08/26/2020 2:01 PM EDT) Thyroid Stimulating Hormone 5.96(H) 0.27 - 4.20 mcIU/mL [facility] Blood specimen (specimen) 08/26/2020 2:01 PM EDT 08/26/2020 2:30 PM EDT Narrative Resulting Agency Comment Spec In Lab Tom Hyatt MD CHEMISTRY ORDERABLES Performing Organization Address [facility]/ZIP Co de Phone Number [facility] [place] [address] * Mitochondrial Antibody, M2 (08/26/2020 2:01 PM EDT) [facility] Mitochon Ab (SEPTEMBER) <0.1 <0.1 (Negative) U [facility] Comment: Test Performed by: [place] [address] Sash Maker: Shay Low M.D. Ph.D.; CLIA# [id number] Blood specimen (specimen) 08/26/2020 2:01 PM EDT 08/26/2020 4:38 PM EDT Narrative Resulting Agency Comment Spec In Lab Tom Hyatt MD LAB SEND OUT ORDERAB LES Performing Organization Address [facility] Co de Phone Number [facility] [place] [address] * Liver/Kidney Microsome Type 1 Antibody (08/26/2020 2:01 PM EDT) Malina/Kid Mirco1 (SEPTEMBER) <5.0 <=20.0 (Negative) U [facility] Comment: Test Performed by: [place] [address] Sash Maker: Shay Low M.D. Ph.D.; CLIA# [id number] Blood specimen (specimen) 08/26/2020 2:01 PM EDT 08/26/2020 4:38 PM EDT Narrative Resulting Agency Comment Spec In Lab Tom Hyatt MD LAB SEND OUT ORDERAB LES Performing Organization Address [facility] Co de Phone Number [facility] [place] [address] * IgG (08/26/2020 2:01 PM EDT) IgG 1,260 700 - 1,600 mg/dL [facility] Comment: Pediatric Reference Intervals obtained from the Caliper Reference Interval project. http://www.Fronto.ca/caliperproject/index.html Blood specimen (specimen) 08/26/2020 2:01 PM EDT 08/26/2020 2:30 PM EDT Narrative Resulting Agency Comment Spec In Lab Tom Hyatt MD CHEMISTRY ORDERABLES Performing Organization Address [facility] Co de Phone Number [facility] [place] [address] * IgA (08/26/2020 2:01 PM EDT) IgA 122 70 - 400 mg/dL [facility] Blood specimen (specimen) 08/26/2020 2:01 PM EDT 08/26/2020 2:30 PM EDT Narrative Resulting Agency Comment Spec In Lab Tom Hyatt MD CHEMISTRY ORDERABLES Performing Organization Address [facility] Co de Phone Number [facility] [place] [address] * Tissue transglutaminase, IgA (08/26/2020 2:01 PM EDT) TTG IgA Ab 0.3 0.1 - 10.0 u/ml [facility] Comment: Negative = <7 U/mL Equivocal = 7-10 U/mL Positive = >10 U/mL Blood specimen (specimen) 08/26/2020 2:01 PM EDT 08/27/2020 7:14 AM EDT Narrative Resulting Agency Comment Spec In Lab Tom Hyatt MD IMMUNOLOGY ORDERABLE S Performing Organization Address [facility] Co de Phone Number [facility] [place] [address] * CRP, acute inflammation (08/26/2020 2:01 PM EDT) C-Reactive Protein 0.2 <=4.9 mg/L [facility] Blood specimen (specimen) 08/26/2020 2:01 PM EDT 08/26/2020 2:30 PM EDT Narrative Resulting Agency Comment Spec In Lab Tom Hyatt MD CHEMISTRY ORDERABLES Performing Organization Address [facility] Co de Phone Number [facility] [place] [address] * Prothrombin Time (08/26/2020 2:01 PM EDT) Prothrombin Time 12.4 9.4 - 12.5 sec [facility] International Normalization Ratio 1.1 [facility] Comment: An INR <2.0 indicates [...] MD HEMATOLOGY ORDERABLE S Performing Organization Address [facility] Co de Phone Number [facility] [place] [address] * (ABNORMAL) Comprehensive metabolic panel (non-fasting) (08/26/2020 2:01 PM EDT) Glucose 92 65 - 199 mg/dL [facility] Comment:Diabetes: >=200 mg/d L plus symptoms Blood Urea Nitrogen 5(L) 8 - 18 mg/dL [facility] Creatinine 0.71 0.70 - 1.20 mg/dL [facility] Sodium 141 135 - 145 mmol/L [facility] Potassium 4.3 3.5 - 5.0 mmol/L [facility] Comment: Please note: ??Patients with WBC >100,000 may have falsely elevated Potassium levels. ??For accurate Potassium quantification in these patients send serum separator tube (gold top) for subsequent determinations. ??Contact the Clinical Chemistry Laboratory if there are any questions. Chloride 104 98 - 107 mmol/L [facility] Carbon Dioxide 28 22 - 31 mmol/L [facility] Anion Gap 9 5 - 15 mmol/L [facility] Calcium 9.4 8.5 - 10.5 mg/dL [facility] Protein, Total 7.4 6.1 - 8.0 gm/dL [facility] Albumin 4.6 3.2 - 5.2 gm/dL [facility] Aspartate Aminotransferase 19 0 - 30 unit/L [facility] Alanine Aminotransferase 20 0 - 30 unit/L [facility] Alkaline Phosphatase 41 35 - 105 unit/L [facility] Bilirubin, Total 0.3 0.2 - 1.3 mg/dL [facility] Est Glomerular Filtration Rate 102 >=60 mL/min/1. 73 m?? [facility] Hyatt MD CHEMISTRY ORDERABLES Performing Organization Address [facility] de Phone Number [facility] [place] [address] * Calprotectin, Stool (08/25/2020 4:00 PM EDT) Calprotectin, Stool <30 <=79 mcg/gm [facility] Comment: Calprotectin Concentration ? Interpretation ? < 80 mcg/g ?Normal ? 80 ? 160 mcg/g ?Borderline ? >160 mcg/g ?Elevated Stool specimen (specimen) 08/25/2020 4:00 PM EDT 08/26/2020 2:21 PM EDT Narrative Resulting Agency Comment Spec In Lab Tom Hyatt MD BODY FLUIDS AND STOO LS ORDERABLES Performing Organization Address [facility] de Phone Number [facility] [place] [address] * C. Difficile Screen (08/25/2020 4:00 PM EDT) C Diff Interp Negative Negative [facility] Comment: Ag/Tox Neg C. diff?? [...] - GENER AL ORDERABLES Performing Organization Address [facility] Phone Number [facility] [place] [address] documented in this encounter Visit Diagnoses Diagnosis Diarrhea, unspecified type Autoimmune hepatitis Hematochezia Blood in stool documented in this encounter Care Teams Supervisor [employer] Relationship Specialty Start Date End Date Geraldo Gracia DNP [address] [place] [address] PCP - General Family Medicine 12/27/19 01/21/21 documented as of this encounter
--- OUTSIDE RECORDS SUMMARY | 2024-06-23 18:23 | XMS_ITS | Encounter Summary ---
Author Organization [facility] Address [facility] [place] [address] Care Team Providers Care Housing Counselor Name Role Phone Geraldo Gracia DNP Primary Care Provider [phone] Encounter Details Date Type Department Care Team (Latest Contact Info) Description 06/19/2020 1:57 PM EST - 06/19/2020 11:59 PM EST Hospital Encounter XRay at [address] [place] [address] Joseph Nielsen MD [facility] [place] [address] Nonintractable episodic headache, unspecified headache type; Fatigue, unspecified type; ARNULFO positive Discharge Disposition: Home Social History Tobacco Use [...] 12.5 mg by mouth nightly. 0 10/17/2015 sertraline (Zoloft) 25 mg Tablet Take 25 mg by mouth Daily. 08/14/2020 calcium citrate (Calcitrate) 200 mg (950 mg) Tablet Take 1 tablet by mouth daily. 06/08/2022 linaclotide (LINZESS) 145 mcg Capsule Take 1 capsule by mouth daily. 24 capsule 02/25/2017 08/14/2020 busPIRone (BUSPAR) 10 mg Tablet Take 10 [...] 9:45 AM EST Hospital Encounter [place] [address] Flor Velasco MD [facility] [place] [address] 06/30/2024 9:45 AM EST - 06/30/2024 10:45 AM EST Surgery [place] [address] Flor Velasco MD [facility] [place] [place] [address] COLONOSCOPY, DIAGNOSTIC (WRVU 3.26) 07/27/2024 8:00 AM EST TH Visit (TeleHealth) [place] [phone] Unruly Ramirez MD [facility] [place] [address] 08/03/2024 3:00 PM EST Office Visit Neurology at [address] [address] Melvin Ramírez MD [facility] [place] [address] 08/25/2024 1:45 PM EDT Office [place] [phone] Keven Church MD [facility] [place] [address] Scheduled Procedures Name Priority Associated Diagnoses Date/Ti me COLONOSCOPY, DIAGNOSTIC (WRV U 3.26) Hematochezia 06/30/2024 9:45 AM EST documented as of this encounter Procedures Procedure Name Priority Date/Time Associated Diagnosis Comments [facility] COOL TEST-COOL Routine 06/19/2020 2 :31 PM EST HC VENIPUNCTURE Routine 06/19/2020 2:31 PM EST Fatigue, unspecified type [facility] MITOCHONDRIAL ANTIBODY Routine 06/19/2020 2:31 PM EST ARNULFO positive [facility] SMOOTH MUSCLE AB, SERUM Routine 06/19/2020 2:31 PM EST ARNULFO positive HC FREE THYROXINE (T4) Routine 2:31 PM EST Fatigue, unspecified type XR CERVICAL SPINE 2 OR 3 VIEWS Routine 06/19/2020 2:23 PM EST Nonintractable episodic headache, unspecified headache type documented in this encounter Results * (ABNORMAL) [facility] Cool Test-Cool (06/19/2020 2:31 PM EST) Pathologist [facility] Cool Test ?Result ? Flag ??Unit ??RefValue --- Smooth Muscle Ab Titer, S ? Positive 1:160 ?@ ?Negative ? --ADDITIONAL INFORMATION-------- ?This test was developed and its performance characteristics ?determined by [facility] in a manner consistent with CLIA ?requirements. This test has not been cleared or approved by ?the U.S. Food and Drug Administration. ?Test Performed by: ?[facility] ?[address] [place] [address] ?Booking Supervisor: Shay Low M.D. Ph.D.; CLIA# [id number] ([id number]) [facility] Blood specimen (specimen) 06/19/2020 2:31 PM EST 06/19/2020 3:47 PM EST Narrative Resulting Agency Comment Spec In Lab Arnaldo Mccabe DO LAB SEND OUT [place] [facility] [place] [place] [address] * (ABNORMAL) Smooth Muscle Antibody (06/19/2020 2:31 PM EST) [facility] Sm Muscle Ab (SEPTEMBER) Positive( A) Negative [facility] Comment: Positive: Reflex to titer will be performed ADDITIONAL INFORMATION This test was developed and its performance characteristics determined by [facility] in a manner consistent with CLIA requirements. This test has not been cleared or approved by the U.S. Food and Drug Administration. Test Performed by: [facility] [place] [address] Booking Supervisor: Shay Low M.D. Ph.D.; CLIA# [id number] Blood specimen (specimen) 06/19/2020 2:31 PM EST 06/19/2020 3:47 PM EST Narrative Resulting Agency Comment Spec In Lab Sandhya Mendoza DO LAB SEND OUT ORDER DEANNE Performing Organization Address City/[facility] Co de Phone Number [facility] [place] [address] * Mitochondrial Antibody, M2 (06/19/2020 2:31 PM EST) [facility] Mitochon Ab (SEPTEMBER) <0.1 <0.1 (Negative) U [facility] Comment: Test Performed by: [facility] [place] [address] Booking Supervisor: Shay Low M.D. Ph.D.; CLIA# [id number] Blood specimen (specimen) 06/19/2020 2:31 PM EST 06/19/2020 3:47 PM EST Narrative Resulting Agency Comment Spec In Lab Sandhya Mendoza DO LAB SEND OUT ORDER DEANNE Performing Organization Address City/[facility]/ZIP Co de Phone Number [facility] [place] [address] * T4, free (06/19/2020 2:31 PM EST) [facility] Free T4 1.42 0.93 - 1.70 ng/dL [facility] Blood specimen (specimen) 06/19/2020 2:31 PM EST 06/19/2020 2:47 PM EST Narrative Resulting Agency Comment Spec In Lab Joseph Nielsen MD CHEMISTRY ORDERABLES Performing Organization Address [facility] [place] [address] * [id number] Qualitative (06/19/2020 2:31 PM EST) G6PD Qual Negative screening for G6PD deficiency. [facility] Blood specimen (specimen) 06/19/2020 2:31 PM EST 06/19/2020 2:46 PM EST Narrative Resulting Agency Comment Spec In Lab Joseph Nielsen MD HEMATOLOGY ORDERABLE S Performing Organization Address [facility] de Phone Number [facility] [place] [address] * XR Cervical Spine 2 or 3 Views (06/19/2020 2:23 PM EST) Anatomical Region Laterality Modality C-spine N/A Digital Radiogra phy Impressions 06/19/2020 2:59 PM EST Normal cervical spine Thank you for letting us participate in the care of this patient. For questions regarding this report, please contact the number below. ? Narrative 06/19/2020 2:59 PM EST EXAMINATION: XR CERVICAL SPINE 2 OR 3 VIEWS CLINICAL HISTORY: headaches, evaluate for spinal stenosis or DJD TECHNIQUE: 2 views of the cervical spine COMPARISON: None FINDINGS: 7 cervical vertebrae are normal in height and alignment. Intervertebral disc spaces are maintained. No significant endplate sclerosis and marginal osteophytes. Normal alignment and spacing of the facet joints. Normal appearance of the spinous processes. No significant uncovertebral joint hypertrophy. Prevertebral soft tissues are normal in thickness and contour. Lung apices are clear. Procedure Note Star Martinez MD - 06/19/2020 EXAMINATION: XR CERVICAL SPINE 2 OR 3 VIEWS CLINICAL HISTORY: headaches, evaluate for spinal stenosis or DJD TECHNIQUE: 2 views of the cervical spine COMPARISON: None FINDINGS: 7 cervical vertebrae are normal in height and alignment. Intervertebraldisc spaces are maintained. No significant endplate sclerosis and marginal osteophytes. Normal alignment and spacing of the facet joints. Normalappearance of the spinous processes. No significant uncovertebral jointhypertrophy. Prevertebral soft tissues are normal in thickness and contour. Lung apicesare clear. IMPRESSION Normal cervical spine Thank you for letting us participate in the care of this patient. Forquestions regarding this report, please contact the number below. Electronically signed by: Star Martinez MD, [facility]([phone]), at 06/19/2020 2:59 PM Authorizing Provider Result Miladis Nielsen MD IMG DX ORDERABLES documented in this encounter Visit Diagnoses Diagnosis Nonintractable episodic headache, unspecified headache type Fatigue, unspecified type ARNULFO positive Other and unspecified nonspecific immunological findings Hematochezia Blood in stool documented in this encounter Care Teams Housing Counselor Relationship Specialty Start Date End Date Geraldo Gracia DNP [address] [place] [address] PCP - General Family Medicine 12/27/19 01/21/21 documented as of this encounter
--- OUTSIDE RECORDS SUMMARY | 2024-06-23 18:23 | XMS_ITS | Encounter Summary ---
Author Organization [facility] [place] [address] Care Team Providers Care Training Administrator Name Role Phone Geraldo Gracia DNP Primary Care Provider Encounter Details Date Type Department Care Team (Latest Contact Info) Description 06/19/2020 1:01 PM EST - 06/19/2020 1:56 PM EST Hospital [place] [address] Discharge Disposition: Home Social History Tobacco Use [...] 9:45 AM EST Hospital Encounter [place] [address] Flor Velasco MD [facility] [place] [address] 06/30/2024 9:45 AM EST - 06/30/2024 10:45 AM EST [place] [address] Flor Velasco MD [facility] [place] [address] COLONOSCOPY, DIAGNOSTIC (WRVU 3.26) 07/27/2024 8:00 AM EST TH Visit (TeleHealth) [place] [phone] Unruly Ramirez MD [facility] [place] [address] 08/03/2024 3:00 PM EST Office Visit Neurology at [facility] [address] [place] [address] Melvin Ramírez MD [facility] [address] [place] [address] 08/25/2024 1:45 PM EDT Office [place] [phone] Keven Church MD [facility] [place] [address] Scheduled Procedures Name Priority Associated Diagnoses Date/Ti me COLONOSCOPY, DIAGNOSTIC (WRV U 3.26) Hematochezia 06/30/2024 9:45 AM EST documented as of this encounter Visit Diagnoses Not on filedocumented in this encounter Care Teams Training Administrator Relationship Specialty Start Date End Date Geraldo Gracia DNP [address] [place] [address] PCP - General Family Medicine 12/27/19 01/21/21 documented as of this encounter
--- OUTSIDE RECORDS SUMMARY | 2024-06-23 18:23 | XMS_ITS | Encounter Summary ---
Author Organization [facility] [place] [address] Care Team Providers Care Market Research Consultant Name Role Phone Geraldo Gracia [facility] Primary Care Provider Encounter Details Date Type Department Care Team (Late st Contact Info) Description 08/15/2020 Orders [place] [phone] Mathew Bianchi MD Autoimmune hepatitis Social History Tobacco Use Types [...] 9:45 AM EST Hospital En[place] [phone] Flor Velasco MD [facility] [place] [address] 06/30/2024 9:45 AM EST - 06/30/2024 10:45 AM EST [place] [address] Flor Velasco MD [facility] [place] [address] COLONOSCOPY, DIAGNOSTIC (WRVU 3.26) 07/27/2024 8:00 AM EST TH Visit (TeleHealth) [place] [address] Unruly Ramirez MD [facility] [place] [address] 08/03/2024 3:00 PM EST Office Visit Neurology at [address] [address] Melvin Ramírez MD [facility] [place] [address] 08/25/2024 1:45 PM EDT Office [place] [phone] Keven Church MD [facility] [place] [address] Scheduled Procedures Name Priority Associated Diagnoses Date/Ti me COLONOSCOPY, DIAGNOSTIC (WRV U 3.26) Hematochezia 06/30/2024 9:45 AM EST documented as of this encounter Results * (ABNORMAL) Iron and TIBC (08/26/2020 2:01 PM EDT) Iron 60 30 - 150 mcg/dL [facility] TIBC 235(L) 250 - 450 mcg/dL [facility] Iron Saturation 26 20 - 50 % [facility] Blood specimen (specimen) 08/26/2020 2:01 PM EDT 08/26/2020 2:30 PM EDT Narrative Resulting Agency Comment Spec In Lab Vanessa Randhawa MD CHEMISTRY ORDERABLES Performing Organization Address City/[facility]/ZIP Co de Phone Number [facility] [place] [address] * Ferritin (08/26/2020 2:01 PM EDT) Ferritin 63 15 - 150 ng/mL [facility] Comment: Pediatric reference ranges not verified at [facility], interpret with caution. Reference ranges for females greater than 50 years of age approach values for men, i.e., 30-400 ng/mL. Blood specimen (specimen) 08/26/2020 2:01 PM EDT 08/26/2020 2:30 PM EDT Narrative Resulting Agency Comment Spec In Lab Vanessa Randhawa MD CHEMISTRY ORDERABLES Performing Organization Address City/[facility] Co de Phone Number [facility] [place] [address] documented in this encounter Visit Diagnoses Diagnosis Autoimmune hepatitis Hematochezia Blood in stool documented in this encounter Care Teams Market Research Consultant Relationship Specialty Start Date End Date Geraldo Gracia DNP [address] [place] [address] PCP - General Family Medicine 12/27/19 01/21/21 documented as of this encounter
--- OUTSIDE RECORDS SUMMARY | 2024-06-23 18:23 | XMS_ITS | Encounter Summary ---
[place] [address] Care Team Providers Care Food And Nutrition Professor Name Role Phone Geraldo Gracia DNP Primary Care Provider [phone] Encounter Details Date Type Department Care Team (Late st Contact Info) Description 08/20/2020 Telephone [place] [phone] Erich Bañuelos Social History Tobacco Use Types Packs/Day Years [...] encounter Miscellaneous Notes * Telephone Encounter - Erich Bañuelos - 08/20/2020 1:21 PM EDT Karolina Olivas [id number] Diagnosis/Indication: history of celiac disease, Chronic diarrhea x 1 month, new onset GERD in the last month 1. Have you ever had a/an Upper Endoscopy & Colonoscopy before? Yes: Date 11/11/2015 If yes, did you have any problems with the procedure? No What type of sedation was used: IV Conscious Sedation 2. Do you take any blood thinners or have you been diagnosed with a bleeding disorder that increases your risk of bleeding with procedures? No 3. Do you have a Pacemaker or Defibrillator device? No 4. Are you a diabetic? No 5. Do you have any Allergies to Eggs, Latex or Medications? No 6. Do you take any Oral Iron Supplements (Including multi-vitamins)? Yes (Multivitamin) 7. Do you have a history of three or more abdominal surgeries? Yes 8. Have you had a problem with sedation or anesthesia? No 9. Do you use a c-pap machine or oxygen tank? Neither 10. Do you take prescription narcotic pain medications, including suboxone or methodone? No 11. Do you have a preference regarding the gender of your provider? No Preference 12. Is there any other information you would like to us to note for the provider and nursing team who will perform your case? No 13. Say to patient: You must have a responsible libertarian who will drive you to your procedure, stay [place] for the entire duration of your procedure, and drive you home from your procedure? *Please Verify the height and weight, and adjust if height and/or weight have changed* Estimated body mass index is 18.88 kg/m?? as calculated from the following: Height as of 05/15/20: 157.5 cm (5' 2). Weight as of 05/15/20: 46.8 kg (103 lb 3.2 oz). Age:45 y.o. documented in this encounter Plan of Treatment Upcoming Encounters Date Type Department Care Team (Latest Contact Info) Description 06/30/2024 9:45 AM EST Hospital En[place] [address] Flor Velasco MD [facility] [place] [address] 06/30/2024 9:45 AM EST - 06/30/2024 10:45 AM EST [place] [address] Flor Velasco MD [facility] [place] [address] COLONOSCOPY, DIAGNOSTIC (WRVU 3.26) 07/27/2024 8:00 AM EST TH Visit (TeleHealth) Gastroenterology at [place] [phone] Unruly Ramirez MD [facility] [place] [address] 08/03/2024 3:00 PM EST Office Visit Neurology at [address] [phone] Melvin Ramírez MD [facility] [place] [address] 08/25/2024 1:45 PM EDT Office [place] [address] Keven Church MD [facility] [place] [address] Scheduled Procedures Name Priority Associated Diagnoses Date/Ti me COLONOSCOPY, DIAGNOSTIC (WRV U 3.26) Hematochezia 06/30/2024 9:45 AM EST documented as of this encounter Visit Diagnoses Not on filedocumented in this encounter Care Teams Food And Nutrition Professor Relationship Specialty Start Date End Date Geraldo Gracia DNP [address] [place] [address] PCP - General Family Medicine 12/27/19 01/21/21 documented as of this encounter
--- OUTSIDE RECORDS SUMMARY | 2024-06-23 18:23 | XMS_ITS | Encounter Summary ---
[place] [address] Care Team Providers Care Project Manager Retail Name Role Phone Geraldo Gracia [facility] Primary Care Provider Reason for Visit * Reason Onset Date Comments Reminder Appointment 08/14/2020 Encounter Details Date Type Department Care Team (Late st Contact Info) Description 08/14/2020 Tele[place] [phone] Yelitza Cabello CMA Reminder Appointment Social History Tobacco Use Types [...] Telephone Encounter - Yelitza Cabello CMA - 08/14/2020 8:34 AM EDT Called patient to review medications and allergies for their upcoming gastroenterology Type of Appointment: Telehealth appointment. Reach Patient during MA Check: No, Left Message Notes for the provider: Notes for the nurse: documented in this encounter Plan of Treatment Upcoming Encounters Date Type Department Care Team (Latest Contact Info) Description 06/30/2024 9:45 AM EST Hospital Encounter Gastroenterology at [place] [phone] Flor Velasco MD [facility] [place] [address] 06/30/2024 9:45 AM EST - 06/30/2024 10:45 AM EST [place] [phone] Flor Velasco MD [facility] [place] [address] COLONOSCOPY, DIAGNOSTIC (WRVU 3.26) 07/27/2024 8:00 AM EST TH Visit (TeleHealth) Gastroenterology at [place] [phone] Unruly Ramirez MD [facility] [place] [address] 08/03/2024 3:00 PM EST Office Visit Neurology at [address] [phone] Melvin Ramírez MD [facility] [place] [address] 08/25/2024 1:45 PM EDT [place] [address] Keven Church MD [facility] [place] [address] Scheduled Procedures Name Priority Associated Diagnoses Date/Ti me COLONOSCOPY, DIAGNOSTIC (WRV U 3.26) Hematochezia 06/30/2024 9:45 AM EST documented as of this encounter Visit Diagnoses Not on filedocumented in this encounter Care Teams Project Manager Retail Relationship Specialty Start Date End Date Geraldo Gracia DNP [facility] [address] [facility] [address] [place] [address] PCP - General Family Medicine 12/27/19 01/21/21 documented as of this encounter
--- OUTSIDE RECORDS SUMMARY | 2024-06-23 18:23 | XMS_ITS | Encounter Summary ---
[place] [address] Care Team Providers Care Political Research Scientist Name Role Phone Keith Ruiz MD Primary Care Provider Unavailab le Reason for Referral * Allergy Testing (Routine) - Closed Specialty Diagnoses / Procedures Referred By Mikaela costa Referred To Contact Allergy Diagnoses Lower abdominal pain Kelle Rosas APRN [facility] [place] [address] [facility] [address] [place] [address] Referral ID Status Reason Start Date Expiration Date V isits Requested Visits Authorized [id number] Closed Consult, Test & Treat 02/11/2017 02/11/2018 1 1 Encounter Details Date Type Department Care Team (Late st Contact Info) Description 02/11/2017 Orders [place] [address] Kelle Rosas MANAGER SMALL BUSINESS [facility] [place] [address] Lower abdominal pain Social History Tobacco Use Types [...] 9:45 AM EST Hospital Encounter Gastroenterology at [place] [phone] Flor Velasco MD [facility] [place] [address] 06/30/2024 9:45 AM EST - 06/30/2024 10:45 AM EST Surgery Gastroenterology at [place] [phone] Flor Velasco MD [facility] [place] [address] COLONOSCOPY, DIAGNOSTIC (WRVU 3.26) 07/27/2024 8:00 AM EST TH Visit (TeleHealth) Gastroenterology at [place] [phone] Unruly Ramirez MD [facility] [place] [address] 08/03/2024 3:00 PM EST Office Visit Neurology at [address] [phone] Melvin Ramírez MD [facility] [address] [place] [address] 08/25/2024 1:45 PM EDT Office Visit Rheumatology at [place] [phone] Keven Church MD [facility] [place] [address] Scheduled Procedures Name Priority Associated Diagnoses Date/Ti me COLONOSCOPY, DIAGNOSTIC (WRV U 3.26) Hematochezia 06/30/2024 9:45 AM EST Scheduled Referrals Name Type Priority Associated Diagnoses Orde r Schedule Referral to Allergy Outpatient Referral Routine Lower abdominal pain Ordered: 02/11/2017 documented as of this encounter Visit Diagnoses Diagnosis Lower abdominal pain Abdominal pain, other specified site Hematochezia Blood in stool documented in this encounter Care Teams Political Research Scientist Relationship Specialty Start Date End Date Keith Ruiz MD PCP - General 05/12/11 12/26/19 documented as of this encounter
--- OUTSIDE RECORDS SUMMARY | 2024-06-23 18:23 | XMS_ITS | Encounter Summary ---
Author Organization [facility] [place] [place] [address] Care Team Providers Care Electric Organ Inspector And Repairer Name Role Phone Geraldo Gracia DNP Primary Care Provider Reason for Visit * Consultation (Routine) - Specialty Diagnoses / Procedures Referred By Mikaela costa Referred To Contact Rheumatology Diagnoses Rash and other nonspecific skin eruption Pain in unspecified joint Headache, unspecified Celiac disease Geraldo Gracia, NANNETTE [address] [place] [address] [address] [place] [address] [facility] [address] [place] [phone] Referral ID Status Reason Start Date Expiration Date V isits Requested Visits Authorized [id number] Consult, Test & Treat Connection [facility] PCP Updated and/or Approved 04/03/2020 10/01/2020 6 6 Encounter Details Date Type Department Care Team (Late st Contact Info) Description 05/15/2020 8:00 AM EST [place] [phone] Sandhya Mendoza DO [facility] [address] [place] [id number] Arnaldo Mccabe DO Arthralgia of both hands; Pericardial effusion; Fatigue, unspecified type Social History Tobacco Use Types [...] Sign Reading Time Taken Comments Blood Pressure 115/72 05/15/2020 7:44 AM EST Pulse 100 05/15/2020 7:44 AM EST Temperature 36.2 ??C (97.1 ??F) 05/15/2020 7:44 AM ES T Respiratory Rate - - Oxygen Saturation 100% 05/15/2020 7:44 AM EST Inhaled Oxygen Concentration - - Weight 46.8 kg (103 lb 3.2 oz) 05/15/2020 7:44 A M EST Height 157.5 cm (5' 2) 05/15/2020 7:44 AM EST Body Mass Index 18.88 05/15/2020 7:44 AM EST documented in this encounter Patient Instructions * Patient Instructions* Arnaldo Mccabe DO - 05/15/2020 8:00 AM EST Labs today at 3L We will call you with results. Follow up in 1 month. documented in this encounter Progress Notes * Arnaldo Mccabe DO - 05/15/2020 8:00 AM EST Rheumatology Outpatient Consultation Note Reason for Consult: Karolina Richards is a 44 y.o. female PMH celiac disease, hysterectomy 2/2 abnormal uterine bleeding, migraines, allergies, chronic pericardial effusion in 2018, costochondritis, pectus excavatum,intersitial cystitis who we are seeing at the request of Geraldo Gracia for evaluation of rash with ARNULFO positivity, suspected SLE. HPI: - chronic abdominal pain diagnosed with celiac disease - previously seen by Allergy/immunology in 2017 for rash thought to be food- related, negative - headaches recurrent on top of left eye radiating to top of head and to the back, lasted for 3 weeks - embarrasingly tired - arthralgias mostly in left knee, ankle, right wrist, and back - noticed some swelling in left knee, pain worse with walking - slight erythematous rash on nose and tops of cheeks, comes/goes, usually in the morning, sometimes - feels cold, no chills and no running fevers - hands are numb such as finger tips - hands hurt in the cold, feel burning when touching cold objects, can turn blue, every now and then one finger might turn white, blue and red, does not happen all the time in the cold - no dry eyes, no signficant dry mouth - AM stiffness, lasting one hour, hot shower helps - ibuprofen for joint pain, 800mg BID for headaches - cold weather worsens joint pain - water blisters on the inside of lip or cheek, not painful, does not have today - single episode 2 years ago of having painful spots with swelling after wearing shorts, in the sunfor 20 minute, lasted for one week, given cream for improvement - doesn't sleep well, can't remember the last time she had a good night rest - first early miscarriage, second early labor (3 months but had delivered one month), miscariage at 13 weeks, premature daughter at 24 weeks but passed 7 hours later, with twins twice (boy 6 weeks early, girl 4 weeks) ROS (positive in bold): General fevers, chills, night sweats, weight loss/gain HEENT oral ulcers, dry eyes, dry mouth, red/itchy eyes Card pleuritic chest pain, palpitations Pulm SOB, cough, JENKINS GI abd pain, nausea, vomiting, diarrhea, constipation, dysphagia, reflux dysuria, hematuria, genital ulcers, changes to color of urine MS arthritis, arthralgia, muscle aches Neuro weakness, numbness, tingling, CROWE Skin Raynaud's, rash, hair loss, photosensitivity, hair changes Psych depression, anxiety, difficulty sleeping Medical History: celiac disease, hysterectomy 2/2 abnormal uterine bleeding, migraines, allergies, chronic pericardial effusion in 2018, costochondritis, pectus excavatum, intersitial cystitis, multiple miscarriages Surgical History: Past Surgical History: Procedure Laterality Date ??? PRO COLONOSCOPY, BIOPSY N/A 11/11/2015 COLONOSCOPY FLEXIBLE, WITH BX performed by Rhett Underwood MD at [facility] ENDOSCOPY ??? PRO UPPER GI ENDOSCOPY, BIOPSY N/A 11/11/2015 EGD WITH BIOPSY performed by Rhett Underwood MD at [facility] ENDOSCOPY ??? 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 magnesium 250 mg Tablet Take 1,000 mg by mouth nightly. ??? calcium citrate (Calcitrate) 200 mg (950 mg) Tablet Take 600 tablets by mouth daily. ??? multivitamin (THERAGRAN) Tablet Take 1 tablet by mouth daily. ??? amitriptyline (ELAVIL) 100 mg Tablet Take 25 mg by mouth nightly. 0 ??? ibuprofen (ADVIL;MOTRIN) 600 mg tablet 600mg, PO, Three times daily - PRN ??? sertraline (Zoloft) 25 mg Tablet Take 25 mg by mouth Daily. ??? traZODone (Desyrel) 50 mg Tablet Take 25 mg by mouth nightly. ??? linaclotide (LINZESS) 145 mcg Capsule Take 1 capsule by mouth daily. (Patient not taking: Reported on 05/15/2020) 24 capsule 0 ??? busPIRone (BUSPAR) 10 mg Tablet Take 10 mg by mouth daily. 0 ??? DULCOLAX, BISACODYL, ORAL Take 1 tablet by mouth daily. ??? zolpidem (AMBIEN) 5 mg Tablet take 1 tablet by mouth at bedtime if needed 30 DAY SUPPLY 0 No current facility-administered medications on file prior to visit. Allergies: Allergies Allergen Reactions ??? Gluten Nausea And Vomiting, Rash and Other (See Comments) Also stomach aches very bad ??? Codeine Phosphate CIS - Nausea/Vomiting ??? Doxycycline Monohydrate CIS - HANDS GET NUMB Physical Examination: BP 115/72 Pulse 100 Temp 36.2 ??C (97.1 ??F) (Temporal) Ht 157.5 cm (5' 2) Wt 46.8 kg (103lb 3.2 oz) SpO2 100% BMI 18.88 kg/m?? General: Well appearing, NAD HEENT: Mucous membranes are moist, no oral mucosal ulcerations, EOMI NCAT Neck: Supple, no lymphadenopathy, full range of motion Cardiovascular: RRR, no m/r/g, 2+ pulses Lungs: CTA b/l no w/r/r Abdomen: Soft, nontender, nondistended Back: Nontender over the spine Neuro: Alert and oriented x3. Cranial nerves II through XII grossly intact. Strength 5/5 throughout, Sensation to light touch is grossly normal throughout. Skin: no rashes or lesions noted Nails: no nail pitting. Cuticular hypertrophy with nailfold capillary some dropout Extremities: Shoulders: FROM, non-tender to palpation Elbows:FROM Wrists: FROM, no swelling, non-tender Hands: No synovitis, no MCP compression tenderness, full claw and fist Hips: FROM, no tenderness Knees: FROM, no effusion, no tenderness Ankles: FROM, non-tender, no effusion Feet: no MTP compression tenderness, no swelling in MTP/DIP/PIPs Laboratory Data: Outside records 03/22/2020 ARNULFO 1:320, centromere and homogenous Lupus anticoagulant negative SPEP no monoclonal proteins, normal aside from slightly low beta-globulins WBC 6.4, Hgb 12.9 (normocytic), Plts 196 BMP normal, Cr 0.70, GFR >60 CRP <0.05 mg/dL UA trace blood, no protein, no casts or RBCs Studies: RUQ US 12/2016 1. Normal right upper quadrant ultrasound without evidence of cholelithiasis oracute cholecystitis. 2. Unexpected finding: Small to moderate simple appearing pericardial effusionof uncertain etiology. TTE 2018 1. Left ventricle: The cavity size was normal. Wall thickness was normal. Systolic function was hyperdynamic. The estimated ejection fraction was 65-70%. Wall motion was normal; there were no regional wall motion abnormalities. 2. Right ventricle: The cavity size was normal. Systolic function was normal. 3. Pericardium, extracardiac: A small, , free-flowing pericardial effusion was identified. Respirophasic change in stroke volume was normal. Assessment/Plan: Karolina Richards is a 44 y.o. female PMH celiac disease, hysterectomy 2/2 abnormal uterine bleeding, migraines, allergies, chronic pericardial effusion in 2018, costochondritis, pectus excavatum,intersitial cystitis who we are seeing at the request of Geraldo Gracia for evaluation of rash with ARNULFO positivity, suspected SLE. She presents today with a constellation of symptoms that are difficult to pinpoint to a single etiology. The rash on her face does not appear to be malar or typical of SLE. Although it is faint, it also comes and go throughout the day. She does not feel any flushing or noticed anything that would bring it on. Because it is faint it is difficult to tell if it spares the nasolabial folds based on her pictures. Typically with malar rash this would spare the nasolabial fold and can come and go but would last for a few days before disappearing. Question if this is actually rosacea. Further, her arthralgias appear more mechanical in nature. She does have a.m. stiffness lasting up to 1 hour however this is total body stiffness and may be due to her poor sleep. Feels she can make a fist in the AM. She has not noticed any significant swelling in her joints aside from her left knee occasionally. She denies sicca symptoms. She has had hair loss with her celiac disease flare, unclear if this was truly alopecia. Questionable about ray nodes as finger color changes do not always occur in the coldbut she does have some abnormal nailfold capillaries with cuticle hypertrophy. In addition, she hasa small pericardial effusion that has been present since 2018 (incidental finding) that has not been worked up. Question if this is autoimmune in etiology. She does have a history of celiac disease al though this is not a common association. Physical exam was largely unremarkable aside from nailbed changes. Outside hospital yielded a positive ARNULFO and a UA with trace blood although no RBCs. CBC and BMP unremarkable with a negative CRP. She has a history of multiple miscarriages therefore we will check antiphospholipid antibodies. we will repeat these labs and others today for better evaluation. Again it is unclear if this is SLE vs APAS vs UCTD. Repeat labs today yielded slightly low C3 and absolute lymphocytes. Otherwise normal CBC and diff, inflammatory markers, TSH, vitamin D. No protein or blood in urine. We will await further workup. PLAN: - Labs today: ARNULFO, COLBY, dsDNA, C3, C4, lupus anticoagulant, anti-cardiolipin, beta 2 glycoprotein antibodies, vitamin D, TSH, CBC, CMP, ESR, CRP, UA, protein:Cr ratio - Await results, will update patient once resulted - Follow up in 1 month. The patient was seen and discussed with Dr. Mendoza. Arnaldo Mccabe DO Rheumatology Fellow Pager: [phone] CC: Geraldo Gracia APRN * Sandhya Mendoza DO - 05/15/2020 8:00 AM EST ATTENDING ADDENDUM The patient's history was reviewed, and I interviewed and examined the patient with . I agree with her summary, findings, and plan. Karolina Richards is a 44 y.o. female with a pos ARNULFO centromere pattern at an OSH with raynauds and associated nail cap changes, nonspecific rashes, fatigue, and arthralgias. Further evaluation for ARNULFO associated disease planned, though at this time suspect uctd. Plan for repeat ARNULFO, COLBY, c3/4, dsDNA, APLAS and ua. Treatment and fu based on lab results documented in this encounter Plan of Treatment Upcoming Encounters Date Type Department Care Team (Latest Contact Info) Description 06/30/2024 9:45 AM EST Hospital En[place] [address] Flor Velasco MD [facility] [address] [place] [address] 06/30/2024 9:45 AM EST - 06/30/2024 10:45 AM EST [place] [address] Flor Velasco MD [facility] [address] [place] [id number] COLONOSCOPY, DIAGNOSTIC (WRVU 3.26) 07/27/2024 8:00 AM EST TH Visit (TeleHealth) Gastroenterology at [place] [phone] Unruly Ramirez MD [facility] DR GASTROENTEROLOGY DEPT [id number] 08/03/2024 3:00 PM EST Office Visit Neurology at [address] [phone] Melvin Ramírez MD [facility] [address] 08/25/2024 1:45 PM EDT [place] [address] Keven Church MD [facility] RHEUMATOLOGY DEPT [id number] Scheduled Procedures Name Priority Associated Diagnoses Date/Ti me COLONOSCOPY, DIAGNOSTIC (WRV U 3.26) Hematochezia 06/30/2024 9:45 AM EST documented as of this encounter Results * Urinalysis with reflex Culture (05/15/2020 10:12 AM EST) Glucose, Urine Dipstick Negative Negative mg/dL [facility] Protein, Urine Dipstick Negative Negative mg/dL [facility] Bilirubin, Urine Dipstick Negative Negative mg/dL [facility] Comment: Clinical correlation required for positive Urine Bilirubin results as false positive may occur with some drugs and drug related products. If a false positive is suspected a serum total bilirubin should be considered if clinically indicated. Urobilinogen, Urine Dipstick Normal Normal mg/dL [facility] pH, Urn (dipstick) 7.5 5.0 - 8.0 [facility] Blood, Urine Dipstick Negative Negative mg/dL [facility] Ketone, Urine Dipstick Negative Negative mg/dL [facility] Nitrite, Urine Dipstick Negative Negative [facility] Leukocytes, Urine Dipstick Negative Negative [facility] Appearance, Urine Dipstick Clear Clear [facility] Specific [place] Urine Automated 1.015 1.006 - 1.030 [facility] Color, Urine Dipstick Yellow Yellow [facility] Reflex to Culture No [facility] Urine specimen obtained by clean catch procedure (specimen) 05/15/2020 10:12 AM EST 05/15/2020 10:27 AM EST Narrative Resulting Agency Comment Spec In Lab Sandhya Mendoza DO URINE ORDERABLES Performing Organization Address City/[facility]/ZIP Co de Phone Number [facility] [place] [address] * Protein/Creatinine Ratio, urine (05/15/2020 10:12 AM EST) Creatinine, Urine 76 mg/dL [facility] Protein, Urine 6 0 - 12 mg/dL [facility] Protein / Creatinine Ratio, Urine <0.1 ratio [facility] Urine specimen (specimen) 05/15/2020 10:12 AM EST 05/15/2020 10:27 AM EST Narrative Resulting Agency Comment Spec In Lab Sandhya Mendoza DO URINE ORDERABLES Performing Organization Address City/[facility]/ZIP Co de Phone Number [facility] [place] [address] * CRP, acute inflammation (05/15/2020 10:08 AM EST) C-Reactive Protein 0.3 <=4.9 mg/L [facility] Blood specimen (specimen) 05/15/2020 10:08 AM EST 05/15/2020 10:17 AM EST Narrative Resulting Agency Comment Spec In Lab Sandhyastella Mendoza DO CHEMISTRY ORDERABL ES Performing Organization Address [facility] Phone Number [facility] [place] [address] * Sedimentation rate (05/15/2020 10:08 AM EST) Sedimentation Rate Automated 8 2 - 37 mm/hr [facility] Comment: Effective May 10, 2019 new capillary photometric technology has resulted in a change in reference ranges. It is recommended that each ESR result be reviewed with its own age appropriate reference range. Blood specimen (specimen) 05/15/2020 10:08 AM EST 05/15/2020 10:17 AM EST Narrative Resulting Agency Comment Spec In Lab Sandhya Mendoza DO HEMATOLOGY ORDERAB LES Performing Organization Address [facility] Phone Number [facility] [place] [address] * C4 Complement (05/15/2020 10:08 AM EST) Complement C4 11 10 - 40 mg/dL [facility] Blood specimen (specimen) 05/15/2020 10:08 AM EST 05/15/2020 10:17 AM EST Narrative Resulting Agency Comment Spec In Lab Sandhya Mendoza DO CHEMISTRY ORDERABL ES Performing Organization Address [facility] de Phone Number [facility] [place] [address] * (ABNORMAL) C3 Complement (05/15/2020 10:08 AM EST) Complement C3 88(L) 90 - 180 mg/dL [facility] Blood specimen (specimen) 05/15/2020 10:08 AM EST 05/15/2020 10:17 AM EST Narrative Resulting Agency Comment Spec In Lab Sandhyastella Mendoza DO CHEMISTRY ORDERABL ES [facility] [place] [address] * DNA Antibody (Double-Stranded) (05/15/2020 10:08 AM EST) DNA Ab (DS) Neg Neg [facility] Blood specimen (specimen) 05/15/2020 10:08 AM EST 05/15/2020 1:40 PM EST Narrative Resulting Agency Comment Spec In Lab Sandhya Mendoza DO LAB SEND OUT ORDER DEANNE Performing Organization Address [facility] Co de Phone Number [facility] [place] [address] * Cardiolipin Antibody Screen (05/15/2020 10:08 AM EST) Cardiolipin Antibody IgG <9.4 <=14.9 GPL unit(s) [facility] Comment: Ranges ?? GPL ------ ?? --- Negative ?? <=14.9 Indeterminate ??15.0 - 20.0 Low/Medium Positive 20.1 - 80.0 High Positive ??>80.0 Cardiolipin Antibody IgM 10.1 <=12.5 MPL unit(s) [facility] Comment: Ranges ?? MPL ------ ?? --- Negative ?? <=12.5 Indeterminate ??12.6 - 20.0 Low/Medium Positive 20.1 - 80.0 High Positive ??>80.0 Blood specimen (specimen) 05/15/2020 10:08 AM EST 05/15/2020 1:40 PM EST Narrative Resulting Agency Comment Spec In Lab Sandhya Mendoza DO IMMUNOLOGY ORDERAB LES Performing Organization Address City/[facility]/ZIP Co de Phone Number [facility] [place] [address] * Beta-2 glycoprotein antibodies (05/15/2020 10:08 AM EST) Beta 2 Glycoprotein, IgG <9.4 <=20.0 unit(s) [facility] Beta 2 Glycoprotein, IgM <9.4 <=20.0 unit(s) [facility] B2GPI Interp No comment [facility] Blood specimen (specimen) 05/15/2020 10:08 AM EST 05/15/2020 1:40 PM EST Narrative Resulting Agency Comment Spec In Lab Sandhya Mendoza DO IMMUNOLOGY ORDERAB LES Performing Organization Address [facility] Co de Phone Number [facility] [place] [address] * Vitamin D, 25-Hydroxy (05/15/2020 10:08 AM EST) Vitamin D Total 25 OH 38 21 - 100 ng/mL [facility] Vit D Interp Sufficient [facility] Blood specimen (specimen) 05/15/2020 10:08 AM EST 05/15/2020 10:17 AM EST Narrative Resulting Agency Comment Spec In Lab Sandhya Mendoza DO CHEMISTRY ORDERABL ES Performing Organization Address [facility] de Phone Number [facility] [place] [address] * TSH (05/15/2020 10:08 AM EST) Thyroid Stimulating Hormone 2.64 0.27 - 4.20 mcIU/mL [facility] Blood specimen (specimen) 05/15/2020 10:08 AM EST 05/15/2020 10:17 AM EST Narrative Resulting Agency Comment Spec In Lab Sandhya Mnedoza DO CHEMISTRY ORDERABL ES Performing Organization Address [facility] Co de Phone Number [facility] [place] [address] * Extractable Nuclear Antigen (COLBY) Ab (05/15/2020 10:08 AM EST) COLBY Ab Test ?Result ?Flag ??Unit ??RefValue Ab to Extractable Nuclear Ag Eval,S ??SS-A/Ro Ab, IgG, S ?<0.2 ?U ? <1.0 (Negative) ??SS-B/La Ab, IgG, S ?<0.2 ?U ? <1.0 (Negative) ??Sm Ab, IgG, S ? <0.2 ?U ? <1.0 (Negative) ??ROLL CUTTING OPERATOR Ab, IgG, S ?0.7 ? U ? <1.0 (Negative) ??Scl 70 Ab, IgG, S ? <0.2 ?U ? <1.0 (Negative) ??Ivory 1 Ab, IgG, S ? <0.2 ?U ? <1.0 (Negative) ?Test Performed by: ?[facility] ?[address] [place] [address] ?Restorative Coordinator: Shay Low M.D. Ph.D.; CLIA# [id number] [facility] Blood specimen (specimen) 05/15/2020 10:08 AM EST 05/15/2020 2:04 PM EST Narrative Resulting Agency Comment Spec In Lab Sandhya Mendoza DO LAB SEND OUT ORDER DEANNE Performing Organization Address [facility] Co de Phone Number [facility] [place] [address] * (ABNORMAL) AR[place]FO ([facility]APD/[facility]H[place] (05/15/2020 10:08 AM EST) ARNULFO Pos, See Titer(A) Neg [facility] Comment:Anti-nuclear antibod ies were tested using an indirect immunofluorescent assay. Blood specimen (specimen) 05/15/2020 10:08 AM EST 05/15/2020 1:40 PM EST Narrative Resulting Agency Comment Spec In Lab Sandhya Mendoza DO LAB SEND OUT ORDER DEANNE Performing Organization Address [facility] Co de Phone Number [facility] [place] [address] * (ABNORMAL) Comprehensive metabolic panel (non-fasting) (05/15/2020 10:08 AM EST) Glucose 86 65 - 199 mg/dL [facility] Comment:Diabetes: >=200 mg/d L plus symptoms Blood Urea Nitrogen 13 8 - 18 mg/dL [facility] Creatinine 0.82 0.70 - 1.20 mg/dL [facility] Sodium 137 135 - 145 mmol/L [facility] Potassium 3.8 3.5 - 5.0 mmol/L [facility] Comment: Please note: ??Patients with WBC >100,000 may have falsely elevated Potassium levels. ??For accurate Potassium quantification in these patients send serum separator tube (gold top) for subsequent determinations. ??Contact the Clinical Chemistry Laboratory if there are any questions. Chloride 102 98 - 107 mmol/L [facility] Carbon Dioxide 25 22 - 31 mmol/L [facility] Anion Gap 10 5 - 15 mmol/L [facility] Calcium 9.4 8.5 - 10.5 mg/dL [facility] Protein, Total 7.5 6.1 - 8.0 gm/dL [facility] Albumin 4.8 3.2 - 5.2 gm/dL [facility] Aspartate Aminotransferase 27 0 - 30 unit/L [facility] Alanine Aminotransferase 31(H) 0 - 30 unit/L [facility] Alkaline Phosphatase 38 35 - 105 unit/L [facility] Bilirubin, Total 0.3 0.2 - 1.3 mg/dL [facility] Est Glomerular Filtration Rate 86 >=60 mL/min/1. 73 m?? [facility] Comment: This patient? s estimated glomerular filtration rate (eGFR) is between 86 mL/min/1.73 m2 (patients with less muscle mass) and 100 mL/min/1.73 m2 (patients with more muscle mass) as determined by the CKD-EPI equation. Assessment of eGFR is not appropriate when creatinine concentrations are rapidly changing. For clinical decisions where creatinine clearance will affect therapy, a 24-hour urine creatinine clearance may be advised. Assignment of CKD stage 1 ? 5 for patients with an eGFR near the transition point between stages may be based on clinical assessment of muscle mass and symptoms in addition to eGFR. Blood specimen (specimen) 05/15/2020 10:08 AM EST 05/15/2020 10:17 AM EST Narrative Resulting Agency Comment Spec In Lab Sandhya Mendoza DO CHEMISTRY ORDERABL ES [facility] [place] [address] documented in this encounter Visit Diagnoses Diagnosis Arthralgia of both hands Pericardial effusion Unspecified disease of pericardium Fatigue, unspecified type Hematochezia Blood in stool documented in this encounter Care Teams Electric Organ Inspector And Repairer Relationship Specialty Start Date End Date Geraldo Gracia DNP [address] [place] [address] PCP - General Family Medicine 12/27/19 01/21/21 documented as of this encounter
--- OUTSIDE RECORDS SUMMARY | 2024-06-23 18:23 | XMS_ITS | Encounter Summary ---
[place] [address] Care Team Providers Care Loss Prevention And Safety Manager Name Role Phone Geraldo Gracia DNP Primary Care Provider [phone] Encounter Details Date Type Department Care Team (Late st Contact Info) Description 06/27/2020 Notes [place] [address] Arnaldo Mccabe DO Social History Tobacco Use [...] Progress Notes * Arnaldo Mccabe DO - 06/27/2020 2:40 PM EST Recent lab results reviewed. Anti-smooth muscle antibody positive, 1:160 Anti-mitochondrial antibody negative From our records, she had a mildly elevated AST 31 (ULN 30), unknown if she's had normal in the past. She had a RUQ US in 2017 that showed normal liver. From my literature search, anti-smooth muscle antibody with celiac disease is not a common linkage, if at all. She feels her celiac is under control. She complains of stomach aches, alternating diarrhea/constipation, and bloating which sounds more like IBS. I have asked her if she has a radio tower technician. If not, I'd recommend her seeing GI for evaluation of this positive anti-smooth muscle and celiac disease. She would also benefit from assitance withIBS. I'd also like to repeat another RUQ ultrasound, if agreeable. I now suspect that her ARNULFO positivity is from her anti-smooth muscle antibody. Still not certain ifthis is UCTD or not, now that we have this specific antibody positivity. I have low suspicion for SLE at this time as well. When reviewing SLICC criteria, she meets a score of 3 (ARNULFO positivity, chronic pericardial effusion, and slightly low C3). She would need a total of 4 to consider the diagnosis. While she has prolonged AM stiffness and arthralgias in knees and wrists, they were not tender at our initial encounter nor were there effusions. ACR/EULAR criteria 5/10 for the same above reasons. Her symptoms can be attributed to other etiologies, fibromyalgia being on the list. We will continue with further workup for now. At this point, I'm not certain that a trial of HCQ would work. documented in this encounter Plan of Treatment Upcoming Encounters Date Type Department Care Team (Latest Contact Info) Description 06/30/2024 9:45 AM EST Hospital Encounter [place] [address] Flor Velasco MD [facility] [place] [address] 06/30/2024 9:45 AM EST - 06/30/2024 10:45 AM EST Surgery [place] [address] Flor Velasco MD [facility] [place] [address] COLONOSCOPY, DIAGNOSTIC (WRVU 3.26) 07/27/2024 8:00 AM EST TH Visit (TeleHealth) [place] [address] Unruly Ramirez MD [facility] [place]STR[place] [address] 08/03/2024 3:00 PM EST Office Visit Neurology at [address] [address] Melvin Ramírez MD [facility] [place] [address] 08/25/2024 1:45 PM EDT Office [place] [phone] Keven Church MD [facility] [place] [address] Scheduled Procedures Name Priority Associated Diagnoses Date/Ti me COLONOSCOPY, DIAGNOSTIC (WRV U 3.26) Hematochezia 06/30/2024 9:45 AM EST documented as of this encounter Visit Diagnoses Not on filedocumented in this encounter Care Teams Loss Prevention And Safety Manager Relationship Specialty Start Date End Date Geraldo Gracia DNP [address] [place] [address] PCP - General Family Medicine 12/27/19 01/21/21 documented as of this encounter
--- OUTSIDE RECORDS SUMMARY | 2024-06-23 18:23 | XMS_ITS | Encounter Summary ---
Author Organization [facility] [place] [address] Care Team Providers Care Plant Taxonomist Name Role Phone Keith Ruiz MD Primary Care Provider Unavail le Encounter Details Date Type Department Care Team (Late st Contact Info) Description 02/05/2017 Orders [place] [phone] Pato Cunha Social History Tobacco Use Types [...] 9:45 AM EST Hospital Encounter [place] [phone] Flor Velasco MD [facility] [place] [address] 06/30/2024 9:45 AM EST - 06/30/2024 10:45 AM EST Surgery [place] [phone] Flor Velasco MD [facility] [place] [address] COLONOSCOPY, DIAGNOSTIC (WRVU 3.26) 07/27/2024 8:00 AM EST TH Visit (TeleHealth) Gastroenterology at [place] [phone] Unruly Ramirez MD [facility] [place] [address] 08/03/2024 3:00 PM EST Office Visit Neurology at [address] [phone] Melvin Ramírez MD [facility] [place] [address] 08/25/2024 1:45 PM EDT Office [place] [address] Keven Church MD [facility] [place] [address] Scheduled Procedures Name Priority Associated Diagnoses Date/Ti me COLONOSCOPY, DIAGNOSTIC (WRV U 3.26) Hematochezia 06/30/2024 9:45 AM EST documented as of this encounter Visit Diagnoses Not on filedocumented in this encounter Care Teams Plant Taxonomist Relationship Specialty Start Date End Date Keith Ruiz MD PCP - General 05/12/11 12/26/19 documented as of this encounter
--- OUTSIDE RECORDS SUMMARY | 2024-06-23 18:23 | XMS_ITS | Encounter Summary ---
[place] [address] Care Team Providers Care News Internship Name Role Phone Geraldo Gracia [facility] Primary Care Provider Reason for Referral * Consultation (Routine) - Closed Specialty Diagnoses / Procedures Referred By Contac t Referred To Contact Sleep Center Diagnoses Fatigue, unspecified type Arnaldo Mccabe [facility] [place] [address] [facility] Sleep Medicine [address] [place] [address] Referral ID Status Reason Start Date Expiration Date V isits Requested Visits Authorized [id number] Closed Consult, Test & Treat 06/18/2020 06/18/2021 1 1 * Consultation (Routine) - Closed Specialty Diagnoses / Procedures Referred By Mikaela costa Referred To Contact Dermatology Diagnoses Rash of unknown cause Arnaldo Mccabe [facility] [place] [address] [facility] Dermatology [address] [place] [address] Referral ID Status Reason Start Date Expiration Date V isits Requested Visits Authorized [id number] Closed Consult, Test & Treat 06/18/2020 06/18/2021 1 1 Encounter Details Date Type Department Care Team (Late st Contact Info) Description 06/18/2020 12:45 PM EST TH Visit (TeleHealth) [place] [address] Arnaldo Mccabe DO Nonintractable episodic headache, unspecified headache type; Fatigue, unspecified type; Rash of unknown cause; Pain in eye, unspecified laterality; Arthralgia of both hands; ARNULFO positive Social History Tobacco Use Types Packs/Day Years [...] Progress Notes * Arnaldo Mccabe DO - 06/18/2020 12:45 PM EST Rheumatology Outpatient Telehealth Follow Up Note PCP: AVA Justin is a 44 y.o. female PMH celiac disease, hysterectomy 2/2 abnormal uterine bleeding, migraines, allergies, chronic pericardial effusion in 2018, costochondritis, pectus excavatum,intersitial cystitis who we are seeing for the continuing management of possible UCTD vs SLE. Rheum History: #Headaches, fatigue, arthralgias (knees and wrists), rosacea? #Possible Raynaud's #Chronic pericardial effusion, incidental finding #Costochondritis #possible UCTD - headaches recurrent on top of left [...] time she had a good night rest Interval History: - continues to have headaches above right eye that radiate to the back of the head, ongoing for 2 years - had episodes of pain when closing eyes - previously seen neurology, deemed not neuro in nature - right forearm tingling, left hand numbness, no pain - cold chills lasting 5-7 seconds, mostly in her trunk - non healing rash behind left ear, no inciting factor noted. Present for one year. Slightly raised, pruritic, bleeds when she itches it. Does not wear glasses much, occurred before mask wearing, no heat or styling products used - gets heat rashes cubital fossas, on thighs, raised erythematous rash that is pruritic, applies lotion, thinks they are heat rashes - does not sleep well, 4-5 hours per night, uses two pills, does not know if she snores or has apneic episodes, does not wake up in the middle of night gasping for air, wakes up with a headache - was told by neurology she had narrow airway - having night sweats although not often, weight stable - celiac under control, no current oral ulcers, hair loss ROS (positives in bold): Gen: no fevers, no chills, night sweats Pulm: no SOB CV: no CP Abd: no abd pain, no nausea, no vomiting, no diarrhea MSK: see HPI Family Hx: Mother - unknown Father - cancer Brother - metastatic prostate cancer Cousin - metastatic colon cancer Niece - SLE, diagnosed at age 24 ?? No family history of RA, OA, Sjogren's, Scleroderma, or gout ?? 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 Gen: well appearing, alert and oriented, nad HEENT: NCAT, EOMI Skin: warm and dry, no rheumatologic rashes on face or UE Joints: Shoulders: FROM Elbows:FROM Wrists: FROM, no swelling Hands: No synovitis, full claw and fist Labs/Studies: 05/15/2020 ARNULFO 1:80 midbody, 1:320 speckled and cytoplasmic ESR 8, CRP 0.3 C3 88 (l), C4 11 DsDNA, COLBY negative Antiphospholipid antibodies negative Vitamin D 38 TSH 2.64 CMP normal, mildly elevated ALT 31 (ULN 30) CBC normal UA normal, Pro:Cr normal Outside records 03/22/2020 ARNULFO 1:320, centromere and homogenous Lupus anticoagulant negative SPEP no monoclonal proteins, normal aside from slightly low beta-globulins WBC 6.4, Hgb 12.9 (normocytic), Plts 196 BMP normal, Cr 0.70, GFR >60 CRP <0.05 mg/dL UA trace blood, no protein, no casts or RBCs RUQ US 12/2016 1. Normal right upper [...] pectus excavatum,intersitial cystitis who we are seeing for the continuing management of possible UCTD vs SLE. She continues to have multiple symptoms that are difficult to pinpoint to a single etiology. Ultimately she has been having similar symptoms including headaches, arthralgias, questionable Raynaud's that are overall stable however reports some changes such as headaches that are worse with closing her eyes at night, cold jolts in her trunk. At this point it is difficult to say if her symptoms are due to an underlying autoimmune disorder or if they could be explained from other etiologies. She reports not feeling refreshed when she wakes up and has headaches that wake her up in the middle the night -question if this could either be from TMJ or a component of sleep apnea. She does not know of any apneic episodes or snoring, however was told she has a small airway and sleeps using 2 pillows. Would recommend for her to get a sleep study for evaluation as well as eye examination. As stated prior, the rash on her face does not appear to be malar or typical of SLE given that it comes and goes t hroughout the day (would be fixed for longer periods of time). And pictures it is difficult to tellif it spares the nasolabial fold and on our evaluation today does not appear that she has this rash. Question if this may be rosacea. Polyarthralgias that do not appear inflammatory in nature - without significant synovitis or tenderness. No typical neurologic or hematologic signs consistent with SLE. Oral ulcers and hair loss associated with celiac flares only. She does have ARNULFO positivity 1:320 however patterns are speckled and cytoplasmic, more consistent with mitochondrial or autoimmune hepatitis, less with SLE. We will obtain anti-mitochondrial and anti-smooth muscle antibodies. Questionable Raynaud's - this was more described as pain with touching cold at our initial visit but today reports triphasic color changes. She will take a picture and send to me the next time this happens, as this does not occur all the time when exposed to cold. Lastly, she has a history of chronic pericardial effusion that has not been further worked up. Non healing rash on the back of her left ear present for one year. She wears glasses but rash extends below that. Seen on [facility] imaging, unable to tell if there are papules or not and she is unsure ifthere are any elevated bumps. Pruritic and bleeds when itches. Does not wear mask often enough to feel this is the cause. No heat or hairstyling products applied. Recommended dermatology consult for evaluation and biopsy. Unclear if she fits in an UCTD category. Recommend to complete further workup including labs, dermatology consult, evaluation for TMJ, eye exam, and sleep study. If remainder of the work up is negative, can consider trial of HCQ. She was in agreement and voiced understanding. PLAN: - Labs: anti-mitochondrial, anti-smooth muscle, repeat C3/C4, CH50, free T4, G6PD levels - Recommend ophtho evaluation, coming up next month - Recommend dentistry evaluation for TMJ or bruxism - Dermatology referral - Recommend sleep study Follow up in 2 months Patient agreeable to telehealth visit. All questions answered for patient. Total video encounter time: 45 minutes Patient was discussed with Dr. Ireland. Arnaldo Mccabe DO Rheumatology Fellow Pager: [phone] * Renato Ireland MD - 06/18/2020 12:45 PM EST I was the attending physician supervising the fellow in the above care. Do to the on going COVID 19Pandemic. I have not seen or examined the patient in person but was available during video visit.. I have dicussed the patient with the fellow . I have reviewed the above note history, and assessment. I agree with the details as reasonable management based on the information provided. Pertinent History: Karolina Richards is a 44 y.o. female celiac disease, hysterectomy 2/2 abnormal uterine bleeding, migraines, allergies, chronic pericardial effusion in 2018, costochondritis, pectus excavatum, intersitial cystitis who we are seeing at the request of Geraldo Gracia for evaluation of rash with ARNULFO positivity suspected SLE,UCTD Pertinent Exam: Exam no contributory No rashes , synovitis, Major issues addressed and Plan: POstive ARNULFO slightly low C3 88 nl ESR and CRP _ UCTD , SLE vs false post dimitris ARNULFO does not make ACR classifcation Criteria with a score 5 at this time. Sleep study, dental eval, and derm eval Renato Ireland MD documented in this encounter Miscellaneous Notes * Addendum Note - Renato Ireland MD - 06/18/2020 12:45 PM ESTAddended by: RENATO IRELAND on: 06/20/2020 12:55 PM Modules accepted: Level of Service documented in this encounter Plan of Treatment Upcoming Encounters Date Type Department Care Team (Latest Contact Info) Description 06/30/2024 9:45 AM EST Hospital Encounter Gastroenterology at [place] [phone] Flor Velasco MD [facility] [place] [address] 06/30/2024 9:45 AM EST - 06/30/2024 10:45 AM EST Surgery [place] [phone] Flor Velasco MD [facility] [place] [address] COLONOSCOPY, DIAGNOSTIC (WRVU 3.26) 07/27/2024 8:00 AM EST TH Visit (TeleHealth) [place] [phone] Unruly Ramirez MD [facility] [place] [address] 08/03/2024 3:00 PM EST Office Visit Neurology at [address] [address] Melvin Ramírez MD [facility] [place] [address] 08/25/2024 1:45 PM EDT Office Visit [place] [address] Keven Church MD [facility] [place] [address] Scheduled Procedures Name Priority Associated Diagnoses Date/Ti me COLONOSCOPY, DIAGNOSTIC (WRV U 3.26) Hematochezia 06/30/2024 9:45 AM EST Scheduled Referrals Name Type Priority Associated Diagnoses Orde r Schedule Referral to Dermatology Outpatient Referral Routine Rash of unknown cause Ordered: 06/18/2020 Referral to [facility] Outpatient Referral Routine Fatigue, unspecified type Ordered: 06/18/2020 documented as of this encounter Results * [id number] Qualitative (06/19/2020 2:31 PM EST) [facility] G6PD Qual Negative screening for G6PD deficiency. [facility] Blood specimen (specimen) 06/19/2020 2:31 PM EST 06/19/2020 2:46 PM EST Narrative Resulting Agency Comment Spec In Lab Renato Ireland MD HEMATOLOGY ORDERABLE S Performing Organization Address City/[facility]/ZIP Co de Phone Number [facility] [place] [address] * T4, free (06/19/2020 2:31 PM EST) Free T4 1.42 0.93 - 1.70 ng/dL [facility] Blood specimen (specimen) 06/19/2020 2:31 PM EST 06/19/2020 2:47 PM EST Narrative Resulting Agency Comment Spec In Lab Renato Ireland MD CHEMISTRY ORDERABLES Performing Organization Address City/[facility]/ZIP Co de Phone Number [facility] [place] [address] * XR Cervical Spine 2 or 3 Views (06/19/2020 2:23 PM EST) Anatomical Region Laterality Modality C-spine N/A Digital Radiogra phy Impressions 06/19/2020 2:59 PM EST Normal cervical spine Thank you for letting us participate in the care of this patient. For questions regarding this report, please contact the number below. ? Electronically signed by: Star Martinez MD, [facility] ([phone]), at 06/19/2020 2:59 PM Narrative 06/19/2020 2:59 PM EST EXAMINATION: XR [...] below. Electronically signed by: Star Martinez MD, [facility]([phone]), at 06/19/2020 2:59 PM Renato Ireland MD IMG DX ORDERABLES documented in this encounter Visit Diagnoses Diagnosis Nonintractable episodic headache, unspecified headache type Fatigue, unspecified type Rash of unknown cause Pain in eye, unspecified laterality Arthralgia of both hands ARNULFO positive Other and unspecified nonspecific immunological findings Nonintractable episodic headache, unspecified headache type Fatigue, unspecified type ARNULFO positive Other and unspecified nonspecific immunological findings Hematochezia Blood in stool documented in this encounter Care Teams News Internship Relationship Specialty Start Date End Date Geraldo Gracia DNP [address] [place] [address] PCP - General Family Medicine 12/27/19 01/21/21 documented as of this encounter
--- OUTSIDE RECORDS SUMMARY | 2024-06-23 18:23 | XMS_ITS | Encounter Summary ---
[place] [address] Care Team Providers Care Ip Litigation Associate Name Role Phone Geraldo Gracia DNP Primary Care Provider [phone] Reason for Visit * Reason Comments Genetic Evaluation * Consultation (Routine) - Specialty Diagnoses / Procedures Referred By Mikaela costa Referred To Contact Hematology and Oncology Diagnoses Pectus excavatum brother with met prostate CA also multiple relatives who have of metastatic breast and colon cancer Geraldo Gracia, NANNETTE [address] [place] [address] [facility] Hem Onc Office [address] [place] [phone] Referral ID Status Reason Start Date Expiration Date V isits Requested Visits Authorized [id number] Consult, Test & [facility] PCP Updated and/or Approved 12/18/2019 06/19/2020 6 6 Encounter Details Date Type Department Care Team (Latest Contact Info) Description 04/04/2020 2:00 PM EST TH Visit (TeleHealth) Hematology [place] [address] Leticia Bhagat, [facility] Family history of colon cancer; Family history of uterine cancer Social History Tobacco Use Types Packs/Day Years [...] as of this encounter Progress Notes * Leticia Bhagat LGC - 04/04/2020 2:00 PM EST Karolina Richards was seen by PILLO Ellison in consultation at the request of Geraldo Gracia to advise regarding possible heritable predisposition to cancer. I spent 30 minutes of this telehealth face to face encounter with the patient gathering medical andfamily history and discussing the likelihood of a genetic predisposition to cancer and the option of genetic testing. Reason for referral/Chief complaint Family history of prostate, colon, breast and uterine cancer. Medical history Cancer hx and treatment: No personal history of cancer. Has celiac disease. Had a hysterectomy due to abnormal uterine bleeding in 2014. Was told that both ovaries were left intact but since then edgard told she only has one ovary. Age at 1st menses: 11 Age at 1st child: pre-menopause Menopause status: 17 Hormone replacement therapy use: none Current cancer screening: Annual mammogram. Had a colonoscopy and EUS in 2015. Not sure when follow-up is planned. Family History of Cancer Problem Relation Age of Onset ??? Breast Cancer Paternal Grandmother 69 ??? Colorectal Cancer Paternal Grandfather 70 ??? Prostate Cancer Brother 50 neg 47 gene panel ??? Skin Cancer Maternal Uncle 30 ??? Uterine Cancer Paternal Aunt 56 ??? Colorectal Cancer Paternal Cousin 38 at 39, no genetic testing Maternal ethnic background is [facility]. Paternal ethnic background is [place]. Genetic risk assessment Karolina's brother who has prostate cancer was seen for genetic counseling and testing earlier thisfall. He gave permission for his test results to be shared with family members. [facility]itary C[facility]. The study was normal. Therefore there is not an indication for genetic testing for Karolina based on her brother's diagnosis. Karolina's maternal first cousin from metastatic colon cancer at age 39. He did not have any genetic testing. His mother had uterine cancer at age 56. Karolina does not think her aunt has had any genetic testing. Karolina does not currently meet eligibility criteria for genetic testing based on this history. However, her Aunt Leticia does meet criteria for testing for a condition called Espinal syndrome. Espinal syndrome primarily increases the risk to develop colon and uterine cancer. An individual who has been diagnosed with one of these cancers and has a 1st degree relative with a related cancer diagnosed before age 50 meets criteria for testing. We discussed that her aunt should considertesting. If she is found to have a mutation related to the history of cancer in the family then others in the family could be tested. Karolina's aunt can schedule a telehealth, telephone, or in person appointment by contacting the Familial Cancer Program at [phone]. We also discussed that if Karolina still wishes to pursue testing for herself, without her aunt first being tested, that a normal result would be considered an uninformative negative. This is because there are two reasons that Karolina's genetic testing could be normal: ?? There could be a mutation in the family that Karolina did not inherit. ?? We are not currently able to identify a mutation related to the cancer in the family. If Karolina wishes to pursue testing we could order it on a self-pay basis since it would not be covered by insurance given that she does not currently meet testing criteria. Karolina was comfortablenot pursuing testing at this time. If her aunt has testing and is found to have a mutation then we would be happy to see Karolina and other family members to complete their own testing. Screening Recommendations Based on personal and/or family history, we recommend: Breast cancer screening ?? Be aware of any breast changes and share concerns with primary care provider ?? Annual clinical breast exams ?? Annual mammograms Ovarian cancer screening ?? We do not recommend any special screening studies in addition to an annual RETAIL AGENT exam at this time. Colon cancer screening ?? Periodic colonoscopy screening as recommended by Karolina's straddle carrier operator. Skin cancer screening ?? Periodic skin exams documented in this encounter Plan of Treatment Upcoming Encounters Date Type Department Care Team (Latest Contact Info) Description 06/30/2024 9:45 AM EST Hospital Encounter Gastroenterology at [place] [phone] Flor Velasco MD [facility] [place] [address] 06/30/2024 9:45 AM EST - 06/30/2024 10:45 AM EST Surgery Gastroenterology at [place] [phone] Flor Velasco MD [facility] [place] [address] COLONOSCOPY, DIAGNOSTIC (WRVU 3.26) 07/27/2024 8:00 AM EST TH Visit (TeleHealth) Gastroenterology at [place] [phone] Unruly Ramirez MD [facility] [place] [address] 08/03/2024 3:00 PM EST Office Visit Neurology at [address] [phone] Melvin Ramírez MD [facility] [place] [address] 08/25/2024 1:45 PM EDT Office [place] [phone] Keven Church MD [facility] [place] [address] Scheduled Procedures Name Priority Associated Diagnoses Date/Ti me COLONOSCOPY, DIAGNOSTIC (WRV U 3.26) Hematochezia 06/30/2024 9:45 AM EST documented as of this encounter Visit Diagnoses Diagnosis Family history of colon cancer Family history of malignant neoplasm of gastrointestinal tract Family history of uterine cancer Family history of malignant neoplasm of genital organ, other Hematochezia Blood in stool documented in this encounter Care Teams Ip Litigation Associate Relationship Specialty Start Date End Date Geraldo Gracia DNP [address] [place] [address] PCP - General Family Medicine 12/27/19 01/21/21 documented as of this encounter
--- OUTSIDE RECORDS SUMMARY | 2024-06-23 18:23 | XMS_ITS | Encounter Summary ---
Author Organization [facility]ly [facility] [place] [address] Care Team Providers Care Fund Development Manager Name Role Phone Geraldo Gracia DNP Primary Care Provider Encounter Details Date Type Department Care Team (Late st Contact Info) Description 07/05/2020 Ancillary Procedure Radiology Library at [facility] [place] [address] Geraldo Gracia DNP [address] [place], [place] [id number] Social History Tobacco Use Types Packs/Day Years [...] 9:45 AM EST Hospital Encounter Gastroenterology at [facility] [place] [phone] Flor Velasco MD [facility] GASTROENTEROLOGY [place], [place] [phone] 06/30/2024 9:45 AM EST - 06/30/2024 10:45 AM EST Surgery Gastroenterology at [place] [phone] Flor Velasco MD [facility] [place] [address] COLONOSCOPY, DIAGNOSTIC (WRVU 3.26) 07/27/2024 8:00 AM EST TH Visit (TeleHealth) [place] [phone] Unruly Ramirez MD [facility] [place] [address] 08/03/2024 3:00 PM EST Office Visit Neurology at [address] [phone] Melvin Ramírez MD [facility] [place] [address] 08/25/2024 1:45 PM EDT Office [place] [phone] Keven Church MD [facility] [place] [address] Scheduled Procedures Name Priority Associated Diagnoses Date/Ti me COLONOSCOPY, DIAGNOSTIC (WRV U 3.26) Hematochezia 06/30/2024 9:45 AM EST documented as of this encounter Procedures Procedure Name Priority Date/Time Associated Diagnosis Comments FILM LIBRARY STORAGE ONLY DX KNEE Routine 07/05/2020 12:00 AM EST documented in this encounter Results * Film Library- Storage Only DX Knee (07/05/2020 12:00 AM EST) Narrative [facility] - 07/08/2020 6:07 AM EST This exam is auto-finalizing. It's purpose is for storage only. Geraldo Gracia DNP IMNicolle FILM LIBRARY OR DERABLES [place], [place] documented in this encounter Visit Diagnoses Not on filedocumented in this encounter Care Teams Fund Development Manager Relationship Specialty Start Date End Date Geraldo Gracia DNP [address] [place] [address] PCP - General Family Medicine 12/27/19 01/21/21 documented as of this encounter
--- OUTSIDE RECORDS SUMMARY | 2024-06-23 18:23 | XMS_ITS | Encounter Summary ---
Author Organization [facility] [place] [address] Care Team Providers Care County Nurse Name Role Phone Keith Ruiz MD Primary Care Provider Unavailab le Encounter Details Date Type Department Care Team (Latest Contact Info) Description 02/12/2017 10:45 AM EDT Laboratory Appointment Lab [address] [place] [phone] Lower abdominal pain Social History Tobacco Use [...] 9:45 AM EST Hospital Encounter [place] [phone] Flor Velasco MD [facility] [place] [address] 06/30/2024 9:45 AM EST - 06/30/2024 10:45 AM EST [place] [phone] Flor Velasco MD [facility] [place] [address] COLONOSCOPY, DIAGNOSTIC (WRVU 3.26) 07/27/2024 8:00 AM EST TH Visit (TeleHealth) [place] [phone] Unruly Ramirez MD [facility] [place] [address] 08/03/2024 3:00 PM EST Office Visit Neurology at [address] [phone] Melvin Ramírez MD [facility] [address] 08/25/2024 1:45 PM EDT Office [place] [phone] Keven Church MD [facility] [place] [address] Scheduled Procedures Name Priority Associated Diagnoses Date/Ti me COLONOSCOPY, DIAGNOSTIC (WRV U 3.26) Hematochezia 06/30/2024 9:45 AM EST documented as of this encounter Procedures Procedure Name Priority Date/Time Associated Diagnosis Comments HEMOGRAM Routine 02/12/2017 10:37 AM EDT Lower abdominal pain DIFFERENTIAL, AUTOMATED Routine 02/12/2017 10:37 AM EDT Lower abdominal pain TISSUE TRANSGLUTAMINASE, IGA Routine 02/12/2017 10:37 AM EDT Lower abdominal pain VITAMIN D, 25-HYDROXY Routine 02/12/2017 10:37 AM EDT Lower abdominal pain CBC (WITH DIFF) Routine 02/12/2017 10:37 AM EDT Lower abdominal pain FERRITIN Routine 02/12/2017 10:37 AM EDT Lower abdominal pain VITAMIN B12 Routine 02/12/2017 10:37 AM EDT Lower abdominal pain COMPREHENSIVE METABOLIC PANEL Routine 02/12/2017 10:37 AM EDT Lower abdominal pain documented in this encounter Results * (ABNORMAL) Differential, Automated (02/12/2017 10:37 AM EDT) Neutrophil % 74.5 % [facility] Neutrophil Absolute 4.19 1.70 - 6.10 x10(3)/mc L [facility] Lymph % 13.9 % [facility] Lymphocytes Abs 0.8(L) 0.9 - 3.2 x10(3)/mc L [facility] Monocyte % 7.5 % [facility] Monocyte Abs 0.4 0.3 - 0.9 x10(3)/mc L [facility] Eos % 2.0 % [facility] Eosinophils Abs 0.1 0.0 - 0.4 x10(3)/mc L [facility] Basophil % 1.6 % [facility] Baso Absolute 0.1 0.0 - 0.1 x10(3)/mc L [facility] Immature Gran % 0.50 % [facility] Comment: Immature granulocytes(IG's)percentage and absolute count will include metamyelocytes, myelocytes, and promyelocytes. Blood smears from CBCs yielding IG's will be scanned manually for concordance. If this scan disagrees with the automated IG or if promyelocytes are noted, a manual differential will be performed. Immature Gran Absolute 0.03 0.00 - 0.04 x10(3)/mc L [facility] Blood specimen (specimen) 02/12/2017 10:37 AM EDT 02/12/2017 10:51 AM EDT Narrative Resulting Agency Comment Spec In Lab Kelle Rosas RESEARCH PROGRAMMER HEMATOLOGY ORDERABLE S [facility] [place] [address] * (ABNORMAL) Hemogram (02/12/2017 10:37 AM EDT) White Blood Cell 5.6 4.0 - 9.5 x10(3)/mc L [facility] Red Blood Cell 3.89(L) 4.00 - 5.21 x10(6)/mc L [facility] Hemoglobin 12.5 11.7 - 15.5 gm/dL [facility] Hematocrit 36.4 35.7 - 45.8 % [facility] Mean Cell Volume 93.6 82.6 - 94.4 fL [facility] Mean Cell Hemoglobin 32.1(H) 27.1 - 32.0 pg [facility] Mean Cell Hemoglobin Concentration 34.3 31.7 - 35.0 gm/dL [facility] Platelet 260 145 - 357 x10(3)/mc L [facility] RDW Standard Deviation 42.4 37.0 - 46.0 [facility] RDW coefficient of variation 12.3 11.5 - 14.1 % [facility] Mean Platelet Volume 11.1 7.6 - 12.9 [facility] NRBC% auto 0.0 % [facility] NRBC Absolute 0.000 0.000 - 0.000 x10(3)/ L [facility] Blood specimen (specimen) 02/12/2017 10:37 AM EDT 02/12/2017 10:51 AM EDT Narrative Resulting Agency Comment Spec In Lab Trajosea Alison RESEARCH PROGRAMMER HEMATOLOGY ORDERABLE S [facility] [place] [address] * Vitamin D, 25-Hydroxy (02/12/2017 10:37 AM EDT) Vitamin D Total 25 OH 39 30 - 100 ng/mL [facility] Comment: Deficient <10 ng/mL Insufficient 10 to 29 ng/mL Sufficient 30 to 100 ng/mL Potential Intoxication >100 ng/mL According to the [place] National Osteoporosis Foundation, Vitamin D concentrations >30 ng/mL are sufficient to protect bone health. ??The National Kidney Foundation has similarly stated that patients with Vitamin D concentrations <30ng/mL should be considered to be insufficient or deficient. http://Tu Cl[employer] Mi Cl[employer]et/nkf-guidelines http://Tu Cl[employer] Mi Cl[employer]et/nejm-VitD The [employer] i[employer] Vitamin D Immunoassay detects both 25-OH Vitamin D2 and 25-OH Vitamin D3, but only a total Vitamin D concentration is reported. Blood specimen (specimen) 02/12/2017 10:37 AM EDT 02/12/2017 12:50 PM EDT Narrative Resulting Agency Comment Spec In Lab Tracia Jung'Radha RESEARCH PROGRAMMER CHEMISTRY ORDERABLES Performing Organization Address City/[facility]/ZIP Co de Phone Number [facility] [place] [address] * Vitamin B12 (02/12/2017 10:37 AM EDT) Vitamin B12 768 207 - 974 pg/mL [facility] Blood specimen (specimen) 02/12/2017 10:37 AM EDT 02/12/2017 10:51 AM EDT Narrative Resulting Agency Comment Spec In Lab Tracia Jung'Radha RESEARCH PROGRAMMER CHEMISTRY ORDERABLES Performing Organization Address City/[facility]/ZIP Co de Phone Number [facility] [place] [address] * Ferritin (02/12/2017 10:37 AM EDT) Ferritin 84 15 - 150 ng/mL [facility] Comment: Pediatric reference ranges not verified at [facility], interpret with caution. Reference ranges for females greater than 50 years of age approach values for men, i.e., 30-400 ng/mL. Blood specimen (specimen) 02/12/2017 10:37 AM EDT 02/12/2017 10:51 AM EDT Narrative Resulting Agency Comment Spec In Lab Kelle Rosas APRN CHEMISTRY ORDERABLES Performing Organization Address [facility] Co de Phone Number [facility] [place] [address] * Tissue transglutaminase, IgA (02/12/2017 10:37 AM EDT) [facility] TTG IgA Ab 0.8 0.1 - 10.0 u/ml [facility] Comment: Negative = <7 U/mL Equivocal = 7-10 U/mL Positive = >10 U/mL Blood specimen (specimen) 02/12/2017 10:37 AM EDT 02/14/2017 1:56 PM EDT Narrative Resulting Agency Comment Spec In Lab Kelle Rosas APRN IMMUNOLOGY ORDERABLE S Performing Organization Address [facility] de Phone Number [facility] [place] [address] * Comprehensive metabolic panel (non-fasting) (02/12/2017 10:37 AM EDT) [facility] Glucose 85 65 - 199 mg/dL [facility] Comment:Diabetes: >=200 mg/d L plus symptoms Blood Urea Nitrogen 10 8 - 18 mg/dL [facility] Creatinine 0.75 0.70 - 1.20 mg/dL [facility] Comment: Please note that the pediatric reference intervals supplied above were not validated at [facility]. Results from pediatric patients should be interpreted in conjunction to the patient's age, height and muscle mass. Sodium 141 135 - 145 mmol/L [facility] Potassium 3.9 3.5 - 5.0 mmol/L [facility] Comment: Please note: ??Patients with WBC >100,000 may have falsely elevated Potassium levels. ??For accurate Potassium quantification in these patients send serum separator tube (gold top) for subsequent determinations. ??Contact the Clinical Chemistry Laboratory if there are any questions. Chloride 101 98 - 107 mmol/L [facility] Carbon Dioxide 27 22 - 31 mmol/L [facility] Anion Gap 13 5 - 15 mmol/L [facility] Calcium 9.5 8.5 - 10.5 mg/dL [facility] Protein, Total 7.2 6.1 - 8.0 gm/dL [facility] Albumin 4.7 3.2 - 5.2 gm/dL [facility] Aspartate Aminotransferase 23 0 - 30 unit/L [facility] Alanine Aminotransferase 19 0 - 30 unit/L [facility] Alkaline Phosphatase 41 40 - 104 unit/L [facility] Bilirubin, Total 0.2 0.2 - 1.3 mg/dL [facility] Est Glomerular Filtration Rate >60 >=60 [facility] Comment: This estimated GFR (eGFR) value was calculated using the MDRD equation which has been validated on patients between the ages of 18 and 70. The MDRD should not be used to assess kidney function in patients < 18 years of age or in patients with extremes of body mass, or in patients with acute kidney failure. This value should be multiplied by 1.2 for patients. For further information please copy and paste the following links into your internet browser. http://[employer].Assured Labor/DHnkdep http://Tu Closet Mi Closet/DHMCnkf Blood specimen (specimen) 02/12/2017 10:37 AM EDT 02/12/2017 10:51 AM EDT Narrative Resulting Agency Comment Spec In Lab Kelle Rosas APRN CHEMISTRY ORDERABLES [facility] [place] [address] documented in this encounter Visit Diagnoses Diagnosis Lower abdominal pain Abdominal pain, other specified site Hematochezia Blood in stool documented in this encounter Care Teams County Nurse Relationship Specialty Start Date End Date Keith Ruiz MD PCP - General 05/12/11 12/26/19 documented as of this encounter
--- OUTSIDE RECORDS SUMMARY | 2024-06-23 18:23 | XMS_ITS | Encounter Summary ---
[place] [address] Care Team Providers Care Bulk Receiver Name Role Phone Geraldo Gracia DNP Primary Care Provider Encounter Details Date Type Department Care Team (Late st Contact Info) Description 03/29/2020 Notes Only Hematology [place] [address] Jaziel Arevalo MD Social History Tobacco Use Types Packs/Day [...] as of this encounter Progress Notes * Jaziel Arevalo MD - 03/29/2020 12:31 PM EDT I have reviewed the patient's record and given personal and/or family history of cancer she should be seen by genetic counselor. This is scheduled for next week. documented in this encounter Plan of Treatment Upcoming Encounters Date Type Department Care Team (Latest Contact Info) Description 06/30/2024 9:45 AM EST Hospital Encounter Gastroenterology at [place] [phone] Flor Velasco MD [facility] [place] [address] 06/30/2024 9:45 AM EST - 06/30/2024 10:45 AM EST Surgery Gastroenterology at [place] [phone] Flor Velasco MD [facility] [place] [address] COLONOSCOPY, DIAGNOSTIC (WRVU 3.26) 07/27/2024 8:00 AM EST TH Visit (TeleHealth) [place] [address] Unruly Ramirez MD [facility] [place] [address] 08/03/2024 3:00 PM EST Office Visit Neurology at [address] [phone] Melvin Ramírez MD [facility] [place] [address] 08/25/2024 1:45 PM EDT Office [place] [phone] Keven Church MD [facility] [place] [address] Scheduled Procedures Name Priority Associated Diagnoses Date/Ti me COLONOSCOPY, DIAGNOSTIC (WRV U 3.26) Hematochezia 06/30/2024 9:45 AM EST documented as of this encounter Visit Diagnoses Not on filedocumented in this encounter Care Teams Bulk Receiver Relationship Specialty Start Date End Date Geraldo Gracia, NANNETTE [address] [place] [address] PCP - General Family Medicine 12/27/19 01/21/21 documented as of this encounter
--- OUTSIDE RECORDS SUMMARY | 2024-06-23 18:23 | XMS_ITS | Encounter Summary ---
[place] [address] Care Team Providers Care Fire Sprinkler Designer Name Role Phone Geraldo Gracia [facility] Primary Care Provider Reason for Visit * Reason Onset Date Comments Prior Authorization 07/09/2020 Tacrolimus Encounter Details Date Type Department Care Team (Late st Contact Info) Description 07/09/2020 Telephone Dermatology at [facility] [address] [place] [phone] Scarlet Krause CMA Prior Authorization (Tacrolimus) Social History Tobacco Use Types Packs/Day Years [...] encounter Miscellaneous Notes * Telephone Encounter - Scarlet Krause CMA - 07/09/2020 11:45 AM EST Images from the original note were not included. * Telephone Encounter - Scarlet Krause CMA - 07/09/2020 11:40 AM EST Medication Prior Authorization for Primary [place] [address] Request received via: CMM Patient: Karolina Olivas Patient : 1975 Insurance Company: [employer] Sent via: [facility] Brasher: [id number] Physician: Miguel Angel Carreno MD Medication Requested: tacrolimus (PROTOPIC) 0.1 % Ointment Frequency/Sig: Apply topically to rash twice daily as needed. Disp: 30 g Refills: 3 Currently taking: no If yes, how long: Diagnosis for this medication: Allergic contact dermatitis due to other agents (L23.89); Eczema, unspecified type (L30.9) Additional Notes: -Daily moisturizing 2x daily. Once after bathing. Apply a moisturizer such as Cerave SA cream or Vanicream. documented in this encounter Plan of Treatment Upcoming Encounters Date Type Department Care Team (Latest Contact Info) Description 06/30/2024 9:45 AM EST Hospital Encounter [place] [address] Flor Velasco MD [facility] [place] [address] 06/30/2024 9:45 AM EST - 06/30/2024 10:45 AM EST Surgery [place] [address] Flor Velasco MD [facility] [address] COLONOSCOPY, DIAGNOSTIC (WRVU 3.26) 07/27/2024 8:00 AM EST TH Visit (TeleHealth) [place] [address] Unruly Ramirez MD [facility] [place] [address] 08/03/2024 3:00 PM EST Office Visit Neurology at [address] [phone] Melvin Ramírez MD [facility] [place] [address] 08/25/2024 1:45 PM EDT Office [place] [phone] Keven Church MD [facility] [place] [address] Scheduled Procedures Name Priority Associated Diagnoses Date/Ti nm COLONOSCOPY, DIAGNOSTIC (WRV U 3.26) Hematochezia 06/30/2024 9:45 AM EST documented as of this encounter Visit Diagnoses Not on filedocumented in this encounter Care Teams Fire Sprinkler Designer Relationship Specialty Start Date End Date Geraldo Gracia DNP [address] [place] [address] PCP - General Family Medicine 12/27/19 01/21/21 documented as of this encounter
--- OUTSIDE RECORDS SUMMARY | 2024-06-23 18:23 | XMS_ITS | Encounter Summary ---
[place] [address] Care Team Providers Care Rn Digestive Name Role Phone Geraldo Gracia DNP Primary Care Provider Encounter Details Date Type Department Care Team (Late st Contact Info) Description 08/19/2020 [place] [phone] Erich Bañuelos Social History Tobacco Use Types [...] * Telephone Encounter - Erich Bañuelos - 08/19/2020 3:56 PM EDT Placed outgoing phone call to patient in order to schedule a procedure. Phone Call Outcome: Left voicemail asking for return call. This was the 1st attempt If the call is returned, it can be handled by: [facility] System Operator documented in this encounter Plan of Treatment Upcoming Encounters Date Type Department Care Team (Latest Contact Info) Description 06/30/2024 9:45 AM EST Hospital Encounter Gastroenterology at [place] [phone] Flor Velasco MD [facility] [place] [address] 06/30/2024 9:45 AM EST - 06/30/2024 10:45 AM EST Surgery Gastroenterology at [place] [phone] Flor Velasco MD [facility] [place] [address] COLONOSCOPY, DIAGNOSTIC (WRVU 3.26) 07/27/2024 8:00 AM EST TH Visit (TeleHealth) Gastroenterology at [place] [phone] Unruly Ramirez MD [facility] [place] [address] 08/03/2024 3:00 PM EST Office Visit Neurology at [address] [phone] Melvin Ramírez MD [facility] [place] [address] 08/25/2024 1:45 PM EDT [place] [phone] Keven Church MD [facility] [place] [address] Scheduled Procedures Name Priority Associated Diagnoses Date/Ti me COLONOSCOPY, DIAGNOSTIC (WRV U 3.26) Hematochezia 06/30/2024 9:45 AM EST documented as of this encounter Visit Diagnoses Not on filedocumented in this encounter Care Teams Rn Digestive Relationship Specialty Start Date End Date Geraldo Gracia DNP [address] [place] [address] PCP - General Family Medicine 12/27/19 01/21/21 documented as of this encounter
--- OUTSIDE RECORDS SUMMARY | 2024-06-23 18:23 | XMS_ITS | Encounter Summary ---
Author Organization [facility] [place] [address] Care Team Providers Care Form Setter Steel Forms Name Role Phone Keith Ruiz MD Primary Care Provider Unavailab le Reason for Visit * Reason Onset Date Comments Medication Refill 02/23/2017 Encounter Details Date Type Department Care Team (Late st Contact Info) Description 02/23/2017 Refill [place] [address] Kelle Rosas APRN [facility] [place] [address] Social History Tobacco Use Types Packs/Day Years [...] Hospital Encounter [place] [phone] Flor Velasco MD [facility] [place] [address] 06/30/2024 9:45 AM EST - 06/30/2024 10:45 AM EST Surgery Gastroenterology at [place] [phone] Flor Velasco MD [facility] [place] [address] COLONOSCOPY, DIAGNOSTIC (WRVU 3.26) 07/27/2024 8:00 AM EST TH Visit (TeleHealth) Gastroenterology at [place] [phone] Unruly Ramirez MD [facility] [place] [address] 08/03/2024 3:00 PM EST Office Visit Neurology at [address] [phone] Melvin Ramírez MD [facility] [place] [address] 08/25/2024 1:45 PM EDT Office [place] [phone] Keven Church MD [facility] [place] [address] Scheduled Procedures Name Priority Associated Diagnoses Date/Ti me COLONOSCOPY, DIAGNOSTIC (WRV U 3.26) Hematochezia 06/30/2024 9:45 AM EST documented as of this encounter Visit Diagnoses Not on filedocumented in this encounter Care Teams Form Setter Steel Forms Relationship Specialty Start Date End Date Keith Ruiz MD PCP - General 05/12/11 12/26/19 documented as of this encounter
--- OUTSIDE RECORDS SUMMARY | 2024-06-23 18:23 | XMS_ITS | Encounter Summary ---
[place] [address] Care Team Providers Care Aquaculturist Name Role Phone Geraldo Gracia DNP Primary Care Provider Encounter Details Date Type Department Care Team (Late st Contact Info) Description 07/04/2020 Orders [place] [address] Arnaldo Mccabe DO Chronic pain of left knee Social History Tobacco Use Types Packs/Day Years [...] Progress Notes * Arnaldo Mccabe DO - 07/04/2020 5:11 PM EST Discussion today regarding updates in patient care. I discussed that although she has a positive ARNULFO, ztkq-tzpmxl-jgfaun antibody was the only ab that came positive which is more consistent with autoimmune hepatitis than SLE. At this time, I cannot say she has SLE given her non specific symptoms. Today she states her knees have been painful and while she did not feel they were swollen, her said they were. Left worse than right. She more she is on her knees, the worse they feel. I asked her to get xrays done locally and for her PCP to see her to evaluate for warmth, effusion (vs Bakers cyst), etc. She lives 3 hours away so seeing her PCP is more convenient. States her fingers were blue after eating in a cold room today, noticed this while she was washing her hands. No pain. She is unsure if there was a preceeding white and redness afterwards. I described that Raynaud's is a triphasic color change, with vasoconstriction causing white color, then blue, w hen red after blood flow is re-established and can be painful. No bumps. I questions if this could be chilblains more so than Raynaud phenomenon? She has a picture and will send it to me. I discussed with her potential fibromyalgia. She is on amitriptyline for interstitial cystitis and zoloft already. I asked her to speak with PCP and see if cymbalta could be tried as this can also help with her joint pains. Previously discussed potential diagnosis of UCTD however I'm not so certain of this as well. I had thought to trial HCQ although not sure how much this will do. Further, she is on other QT prolongating mediations (sertraline, trazadone) and would have to monitor for QTc and arrhthymias. She was ok with holding off starting this medication until further work up was completed. She is waiting to hear from GI and abdominal ultrasound. I let her know that these are not emergentwould would like to get it done when scheduling permits. She voiced understanding and had no further questions. documented in this encounter Plan of Treatment Upcoming Encounters Date Type Department Care Team (Latest Contact Info) Description 06/30/2024 9:45 AM EST Hospital Encounter [place] [address] Flor Velasco MD [facility] DR [place] [address] 06/30/2024 9:45 AM EST - 06/30/2024 10:45 AM EST Surgery Gastroenterology at [place] [phone] Flor Velasco MD [facility] [place] [address] COLONOSCOPY, DIAGNOSTIC (WRVU 3.26) 07/27/2024 8:00 AM EST TH Visit (TeleHealth) [place] [phone] Unruly Ramirez MD [facility] [place] [address] 08/03/2024 3:00 PM EST Office Visit Neurology at [address] [phone] Melvin Ramírez MD [facility] [address] [place] [address] 08/25/2024 1:45 PM EDT Office Visit Rheumatology at [place] [phone] Keven Church MD [facility] [place] [address] Scheduled Procedures Name Priority Associated Diagnoses Date/Ti me COLONOSCOPY, DIAGNOSTIC (WRV U 3.26) Hematochezia 06/30/2024 9:45 AM EST documented as of this encounter Visit Diagnoses Diagnosis Chronic pain of left knee Pain in joint, lower leg Hematochezia Blood in stool documented in this encounter Care Teams Aquaculturist Relationship Specialty Start Date End Date Geraldo Gracia DNP [address] [place] [address] PCP - General Family Medicine 12/27/19 01/21/21 documented as of this encounter
--- OUTSIDE RECORDS SUMMARY | 2024-06-23 18:23 | XMS_ITS | Encounter Summary ---
[place] [address] Care Team Providers Care Project Coordinator Name Role Phone Geraldo Gracia [facility] Primary Care Provider Reason for Visit * Reason Comments Skin Lesion * Consultation (Routine) - Closed Specialty Diagnoses / Procedures Referred By Mikaela costa Referred To Contact Dermatology Diagnoses Rash of unknown cause Arnaldo Mccabe, [facility] [place] [address] [facility] D[facility] [address] [place] [address] Referral ID Status Reason Start Date Expiration Date V isits Requested Visits Authorized [id number] Closed Consult, Test & Treat 06/18/2020 06/18/2021 1 1 Encounter Details Date Type Department Care Team (Late st Contact Info) Description 07/02/2020 10:20 AM EST Office Visit Dermatology at [facility] [address] [place] [phone] Miguel Angel Ovalles MD Allergic contact dermatitis due to other agents; Eczema, unspecified type Social History Tobacco Use Types [...] this encounter Patient Instructions * Patient Instructions* Nick Lundberg LPN - 07/02/2020 10:20 AM EST Images from the original note were not included. Taking Care of Dry Skin Showering Recommendations: - Keep showers short (5-7 minutes). - Use water that is not hot enough to steam the mirror (lukewarm is best). - Avoid scrubbing the skin with washcloths, loofas, scrub brushes or other items. Only use your hands and wash gently. - Use a gentle soap: Dove for Sensitive Skin or Vanicream Body Wash. - Too much soap can be drying to the skin, focus the suds on the groin, armpits, and feet. It is okay to quickly wash other parts of the body such as the back, abdomen, arms, and legs, but these areas do not need to be scrubbed. - Using dilute vinegar 1:6 (1 part white vinegar : 6 parts tap water) after the shower can re-acidify the skin and be helpful in maintaining a healthy skin barrier. You can even use this solution to bathe if desired. Moisturizer Recommendations: - Moisturizing is important in order to repair cracked or dry skin and prevent future itching from occurring. - Moisturize liberally within a few minutes of getting out of the shower in order to lock in the water that is still on your skin. - Creams are better than lotions. - Recommended moisturizing creams: Cerave SA Cream or Vanicream Additional Products: - Sarna Lotion. Keep this refrigerated, it is particularly useful to alleviate itching and avoid scratching. Scratching the skin can irritate it, and this will provide relief without the scratching. - AmLactin Rapid Relief. This is a lotion that contains alpha-hydroxy acids that can gently exfoliate the skin and improve the skin's barrier. This is particularly helpful for rough thick skin on hands, feet, elbows, and knees. documented in this encounter Progress Notes * Miguel Angel Carreno MD - 07/02/2020 10:20 AM EST Images from the original note were not included. DERMATOLOGY - NEW PATIENT NOTE Date of service: 07/02/2020 Karolina Olivas : 1975, 45 y.o. Chief Complaint: Chief Complaint Patient presents with ??? Skin Lesion HPI: Karolina Olivas is a 45 y.o. female referred by Arnaldo Mccabe DO with the following concerns: - Lesions behind left ear, on the right wrist and on the bilateral antecubital fossa that have beenpresent for years, very itchy and do not heal. She has not tried using anything on the areas. She is not sure what might have caused them. She does have celiac disease and is being worked up by rheumatology for other conditions. The spot on her wrist is normally light brown and raised, she picked it off. Relevant Skin History: - Okay to leave detailed message with results? 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 sertraline (Zoloft) 25 mg Tablet Take [...] No current facility-administered medications for this visit. Allergies: Allergies Allergen Reactions ??? Gluten Nausea And Vomiting, Rash and Other (See Comments) Also stomach aches very bad ??? Codeine Phosphate CIS - Nausea/Vomiting ??? Doxycycline Monohydrate CIS - HANDS GET NUMB Review of Systems: - General: Feels well - Skin: No other skin concerns. Examination: - Constitutional: Patient was alert, well-appearing and in no noticeable distress. - Focused Exam: Skin examination of the hands, arms and behind the ears was normal with the exception of the findings listed below - Nick Lundberg LPN was present and on standby during my examination. Diagnosis/Skin findings/Assessment/Plan: 1. Allergic Contact Dermatitis- on the left postauricular skin: edematous eroded pink plaque in a geometric shape. - Discussed patch testing to determine the exact irritant, this is not practical for Karolina as she lives an hour [place] 1/2 away from the clinic. She is not interested in patch testing at this time. - Suspect allergen is in her hearing aid. It is possibly in her glasses, but this is less likely asthe other ear is unaffected. - There was no facial rash today, reviewed rheum notes. Plan: Rx: Protopic 0.1% ointment twice daily to affected areas as needed. - Discussed this can sometimes be expensive, but it is preferred as there are case reports of protopic resulting in remission with ACD from earware despite continued use of the suspected culprit. 2. Eczema - ill defined scaly thin pink plaques on the bilateral antecubital fossae. -Sensitive skin care discussed. Handout given. -Daily moisturizing 2x daily. Once after bathing. Apply a moisturizer such as Cerave SA cream or Vanicream. -Informed pt that condition can get worse with winter - Can use Rx: Protopic 0.1% ointment on these areas twice daily 3. Traumatized Seborrheic Keratosis - well demarcated superficial erosion on the right wrist. - Patient reassured. - Will follow up on this lesion during next follow up. - Clear history of trauma. RTC: 1 month for Telehealth follow up, scheduled before leaving today. Note initiated by Nick Lundberg LPN. I, Nick Lundberg LPN, have performed the documentation for this encounter in the presence of and acting as a scribe for Miguel Angel Carreno MD. I performed the services which were documented by the scribe, and I agree with the accuracy of the documentation in this encounter. Miguel Angel Carreno MD Reviewed and signed by Miguel Angel Carreno MD Resident in Dermatology [facility] Patient seen in conjunction with staff acquisition editor: Marta Silveira MD Department of Dermatology [facility] * Marta Silveira MD - 07/02/2020 10:20 AM EST I directly supervised Dr. Carreno during this office visit. Dr. Carreno presented the history and physical exam to me. I then saw and examined this patient with Dr. Carreno . We reviewed the history and pertinent details and I confirmed the physical findings. I agree with the details of the historyand physical exam as documented in Dr. Carreno's note. MARTA SILVEIRA MD Staff Physician documented in this encounter Plan of Treatment Upcoming Encounters Date Type Department Care Team (Latest Contact Info) Description 06/30/2024 9:45 AM EST Hospital Encounter [place] [address] Flor Velasco MD [facility] [place] [address] 06/30/2024 9:45 AM EST - 06/30/2024 10:45 AM EST Surgery [place] [address] Flor Velasco MD [facility] [place] [address] COLONOSCOPY, DIAGNOSTIC (WRVU 3.26) 07/27/2024 8:00 AM EST TH Visit (TeleHealth) Gastroenterology at [place] [phone] Unruly Ramirez MD [facility] [place] [address] 08/03/2024 3:00 PM EST Office Visit Neurology at [address] [phone] Melvin Ramírez MD [facility] [place] [address] 08/25/2024 1:45 PM EDT Office [place] [address] Keven Church MD [facility] [place] [address] Scheduled Procedures Name Priority Associated Diagnoses Date/Ti me COLONOSCOPY, DIAGNOSTIC (WRV U 3.26) Hematochezia 06/30/2024 9:45 AM EST documented as of this encounter Visit Diagnoses Diagnosis Allergic contact dermatitis due to other agents Eczema, unspecified type Hematochezia Blood in stool documented in this encounter Care Teams Project Coordinator Relationship Specialty Start Date End Date Geraldo Gracia DNP [address] [place] [address] PCP - General Family Medicine 12/27/19 01/21/21 documented as of this encounter
--- OUTSIDE RECORDS SUMMARY | 2024-06-23 18:23 | XMS_ITS | Encounter Summary ---
[place] [address] Care Team Providers Care Post Anesthesia Care Unit Nurse Name Role Phone Keith Ruiz MD Primary Care Provider Unavailab le Reason for Referral * Diagnostic Test (Routine) - Closed Specialty Diagnoses / Procedures Referred By Contac t Referred To Contact Radiology Diagnoses Upper abdominal pain Procedures MRI Enterography wwo Contrast Kelle Rosas APRN [facility] [place] [address] [place] [address] Referral ID Status Reason Start Date Expiration Date V isits Requested Visits Authorized [id number] Closed Specialty Service Requested 02/08/2017 04/26/2017 1 1 Reason for Visit * Diagnostic Test (Routine) - Closed Specialty Diagnoses / Procedures Referred By Contac t Referred To Contact Radiology Diagnoses Upper abdominal pain Procedures MRI Enterography wwo Contrast Kelle Rosas C[employer]ER [facility] [place] [address] [place] [address] Referral ID Status Reason Start Date Expiration Date V isits Requested Visits Authorized [id number] Closed Specialty Service Requested 02/08/2017 04/26/2017 1 1 Encounter Details Date Type Department Care Team (Latest Contact Info) Description 02/08/2017 3:01 PM EDT - 02/08/2017 11:59 PM EDT Hospital [place] [address] Kelle Rosas APRN [facility] [place] [address] Upper abdominal pain Discharge Disposition: Home Social [...] mg by mouth daily. 0 01/28/2017 08/26/2020 multivitamin (THERAGRAN) Tablet Take 1 tablet by mouth daily. 11/15/2023 senna (SENOKOT) 8.6 mg Tablet Take 1 tablet by mouth daily. 02/12/2017 zolpidem (AMBIEN) 5 mg Tablet take 1 tablet by mouth at bedtime if needed 30 DAY SUPPLY 0 09/19/2015 08/14/2020 lubiprostone (AMITIZA) 8 mcg Capsule Take 1 capsule by mouth 2 times daily (with meals). 60 capsule 2 10/24/2015 02/12/2017 ibuprofen (ADVIL;MOTRIN) 600 mg tablet 600mg, PO, Three times daily - PRN 07/13/2006 10/02/2020 documented as of this encounter Plan of Treatment Upcoming Encounters Date Type Department Care Team (Latest Contact Info) Description 06/30/2024 9:45 AM EST Hospital Encounter [place] [address] Flor Velasco MD [facility] [place] [address] 06/30/2024 9:45 AM EST - 06/30/2024 10:45 AM EST Surgery Gastroenterology at [place] [phone] Flor Velasco MD [facility] [address] COLONOSCOPY, DIAGNOSTIC (WRVU 3.26) 07/27/2024 8:00 AM EST TH Visit (TeleHealth) Gastroenterology at [place] [phone] Unruly Ramirez MD [facility] [place] [address] 08/03/2024 3:00 PM EST Office Visit Neurology at [address] [phone] Melvin Ramírez MD [facility] [place] [address] 08/25/2024 1:45 PM EDT Office Visit Rheumatology at [place] [phone] Keven Church MD [facility] [address] Scheduled Procedures Name Priority Associated Diagnoses Date/Ti me COLONOSCOPY, DIAGNOSTIC (WRV U 3.26) Hematochezia 06/30/2024 9:45 AM EST documented as of this encounter Procedures Procedure Name Priority Date/Time Associated Diagnosis Comments MRI ENTEROGRAPHY WITH/WO CONTRAST Routine 02/08/2017 6:15 PM EDT Upper abdominal pain documented in this encounter Results * MRI Enterography wwo Contrast (02/08/2017 6:15 PM EDT) Anatomical Region Laterality Modality Abdomen Magnetic Resonan ce Impressions 02/09/2017 8:55 AM EDT 1. ??No evidence of abnormal small bowel wall thickening or dilated loops of small bowel. However, resolution limited in the pelvis and RIGHT lower quadrant due to crowding of the loops of bowel. Copious stool noted throughout the colon without areas of colonic wall thickening. Narrative 02/09/2017 8:55 AM EDT EXAMINATION: MRI ENTEROGRAPHY WWO CONTRAST CLINICAL HISTORY: n/v, abd pain ?obstruction TECHNIQUE: ??MRI of the abdomen and pelvis was performed with images obtained prior to and following intravenous administration of 5ml of Gadavist. ??1ml glucagon was also administered. COMPARISON: CT of the abdomen and pelvis from 02/02/2017 FINDINGS: GI tract: No areas of abnormal small bowel wall thickening. No areas of abnormally distended small bowel. The terminal ileum is difficult to definitely identify, however, no evidence of RIGHT lower quadrant or pelvic bowel inflammatory change. The appendix is not directly visualized. Copious stool is noted throughout the colon without areas of colonic wall thickening or areas of colonic obstruction. Peritoneum/mesentery: No free fluid or focal fluid collection. Liver: Normal signal, no lesions. Bile ducts: Nondilated. Gallbladder: No gallstones. Normal caliber wall. Pancreas: Normal. Spleen: Normal. Adrenals: Normal. Kidneys: Normal. Lymph nodes: No lymphadenopathy. Reproductive structures: Normal. Osseous structures: No marrow signal abnormality. Procedure Note Tom Miller MD - 02/09/2017 EXAMINATION: MRI ENTEROGRAPHY WWO CONTRAST CLINICAL HISTORY: n/v, abd pain ?obstruction TECHNIQUE: MRI of the abdomen and pelvis was performed with imagesobtained prior to and following intravenous administration of 5ml of Gadavist.1ml glucagon was also administered. COMPARISON: CT of the abdomen and pelvis from 02/02/2017 FINDINGS: GI tract: No areas of abnormal small bowel wall thickening. No areas of abnormally distended small bowel. The terminal ileum is difficult todefinitely identify, however, no evidence of RIGHT lower quadrant or pelvic bowel inflammatory change. The appendix is not directly visualized. Copiousstool is noted throughout the colon without areas of colonic wall thickening orareas of colonic obstruction. Peritoneum/mesentery: No free fluid or focal fluid collection. Liver: Normal signal, no lesions. Bile ducts: Nondilated. Gallbladder: No gallstones. Normal caliber wall. Pancreas: Normal. Spleen: Normal. Adrenals: Normal. Kidneys: Normal. Lymph nodes: No lymphadenopathy. Reproductive structures: Normal. Osseous structures: No marrow signal abnormality. IMPRESSION 1. No evidence of abnormal small bowel wall thickening or dilated loopsof small bowel. However, resolution limited in the pelvis and RIGHT lowerquadrant due to crowding of the loops of bowel. Copious stool noted throughout thecolon without areas of colonic wall thickening. Kelle Rosas APRN [facility] ORDER[facility]LES documented in this encounter Visit Diagnoses Diagnosis Upper abdominal pain Abdominal pain, other specified site Hematochezia Blood in stool documented in this encounter Administered Medications Inactive Administered Medications - up to 3 most recent administrations Medication Order MAR Action Action Date Dose Rate Site barium sulfate (VOLUMEN) oral suspension 1,350 mL 1,350 mL, Oral, ONCE PRN, 1 dose, Starting on Wed02/08/17 at 2003, Until Wed02/08/17 at 1630, Per Protocol, Routine Given 02/08/2017 4:30 PM EDT 1,350 mLs gadobutrol (GADAVIST) 1 mMol/mL injection 5 mL 5 mL, Intravenous, ONCE PRN, 1 dose, Starting on Wed02/08/17 at 2004, Until Wed02/08/17 at 1800, Per Protocol Given 02/08/2017 6:00 PM EDT 5 mLs glucagon (human recombinant) injection SolR 1 mg 1 mg, Intramuscular, PER INSULIN PROTOCOL, Starting on Wed02/08/17 at 1721, Until Wed02/09/17 at 0435, Low blood sugar, Routine Given 02/08/2017 5:50 PM EDT 1 mg documented in this encounter Care Teams Post Anesthesia Care Unit Nurse Relationship Specialty Start Date End Date Keith Ruiz MD PCP - General 05/12/11 12/26/19 documented as of this encounter
--- OUTSIDE RECORDS SUMMARY | 2024-06-23 18:23 | XMS_ITS | Encounter Summary ---
Author Organization [facility] [place] [address] Care Team Providers Care Control System Manager Name Role Phone Geraldo Gracia [facility] Primary Care Provider [phone] Encounter Details Date Type Department Care Team (Latest Contact Info) Description 05/15/2020 9:30 AM EST Laboratory Appointment Lab [address] [place] [phone] Arthralgia of both hands Social History Tobacco [...] 9:45 AM EST Hospital [place] [phone] Flor Velasco MD [facility] [address] 06/30/2024 9:45 AM EST - 06/30/2024 10:45 AM EST Surgery Gastroenterology at [place] [phone] Flor Velasco MD [facility] [place] [address] COLONOSCOPY, DIAGNOSTIC (WRVU 3.26) 07/27/2024 8:00 AM EST TH Visit (TeleHealth) [place] [phone] Unruly Ramirez MD [facility] [place] [address] 08/03/2024 3:00 PM EST Office Visit Neurology at [address] [phone] Melvin Ramírez MD [facility] [place] [address] 08/25/2024 1:45 PM EDT Office [place] [phone] Keven Church MD [facility] [place] [address] Scheduled Procedures Name Priority Associated Diagnoses Date/Ti me COLONOSCOPY, DIAGNOSTIC (WRV U 3.26) Hematochezia 06/30/2024 9:45 AM EST documented as of this encounter Procedures Procedure Name Priority Date/Time Associated Diagnosis Comments HC PROTEIN, QUANTITATIVE, URINE Routine 05/15/2020 10:12 AM EST Arthralgia of both hands URINALYSIS WITH REFLEX CULTURE Routine 05/15/2020 10:12 AM EST Arthralgia of both hands HC VENIPUNCTURE Routine 05/15/2020 10:08 AM EST Arthralgia of both hands HC DRVVT RATIO Routine 05/15/2020 10:08 AM EST Arthralgia of both hands SILICA CLOTTING TIME Routine 05/15/2020 10:08 AM EST Arthralgia of both hands DRVVT Routine 05/15/2020 10:08 AM EST Arthralgia of both hands HC PCH EXTRACTABLE NUCLEAR ANTIGEN Routine 05/15/2020 10:08 AM EST Arthralgia of both hands HC DNA AB DS (MCGRATH) Routine 05/15/2020 10:08 AM EST Arthralgia of both hands HEMOGRAM Routine 05/15/2020 10:08 AM EST Arthralgia of both hands DIFFERENTIAL, AUTOMATED Routine 05/15/2020 10:08 AM EST Arthralgia of both hands ARNULFO TITER Routine 05/15/2020 10:08 AM EST HC BETA 2-GLYCOPROTEIN I Routine 05/15/2020 10:08 AM EST Arthralgia of both hands HC VITAMIN D TOTAL-25 HYDROXY Routine 05/15/2020 10:08 AM EST Arthralgia of both hands HC CARDIOLIPIN ANTIBODIES Routine 05/15/2020 10:08 AM EST Arthralgia of both hands HC ESR-SEDIMENTATION RATE, BLOOD Routine 05/15/2020 10:08 AM EST Arthralgia of both hands HC CBC,PLT & AUTO DIFF Routine 0 10:08 AM EST Arthralgia of both hands HC COMPLEMENT,C3 SERUM Routine 0 10:08 AM EST Arthralgia of both hands HC COMPLEMENT C4, PLASMA Routine 05/15/2020 10:08 AM EST Arthralgia of both hands HC ANTINUCLEAR ANTIBODY,SERUM Routine 05/15/2020 10:08 AM EST Arthralgia of both hands HC THYROID STIMULATING HORMONE, SERUM Routine 05/15/2020 10:08 AM EST Arthralgia of both hands COMPREHENSIVE METABOLIC PANEL Routine 05/15/2020 10:08 AM EST Arthralgia of both hands documented in this encounter Results * Protein/Creatinine Ratio, urine (05/15/2020 10:12 AM EST) Creatinine, Urine 76 mg/dL [facility] Protein, Urine 6 0 - 12 mg/dL [facility] Protein / Creatinine Ratio, Urine <0.1 ratio [facility] Urine specimen (specimen) 05/15/2020 10:12 AM EST 05/15/2020 10:27 AM EST Narrative Resulting Agency Comment Spec In Lab Sandhya Mendoza DO URINE ORDERABLES Performing Organization Address City/State/[facility] Co de Phone Number [facility] [place] [address] * Urinalysis with reflex Culture (05/15/2020 10:12 AM EST) Glucose, Urine Dipstick Negative Negative mg/dL [facility] Protein, Urine Dipstick Negative Negative mg/dL [facility] Bilirubin, Urine Dipstick Negative Negative mg/dL [facility] Comment: Clinical correlation required for positive Urine Bilirubin results as false positive may occur with some drugs and drug related products. If a false positive is suspected a serum total bilirubin should be considered if clinically indicated. Urobilinogen, Urine Dipstick Normal Normal mg/dL [facility] pH, Urn (dipstick) 7.5 5.0 - 8.0 [facility] Blood, Urine Dipstick Negative Negative mg/dL [facility] Ketone, Urine Dipstick Negative Negative mg/dL [facility] Nitrite, Urine Dipstick Negative Negative [facility] Leukocytes, Urine Dipstick Negative Negative [facility] Appearance, Urine Dipstick Clear Clear [facility] Specific Broadus Urine Automated 1.015 1.006 - 1.030 [facility] Color, Urine Dipstick Yellow Yellow [facility] Reflex to Culture No [facility] Urine specimen obtained by clean catch procedure (specimen) 05/15/2020 10:12 AM EST 05/15/2020 10:27 AM EST Narrative Resulting Agency Comment Spec In Lab Sandhya Mendoza DO URINE ORDERABLES Performing Organization Address [facility] Co de Phone Number [facility] [place] [address] * (ABNORMAL) ARNULFO Titer (05/15/2020 10:08 AM EST) ARNULFO Titer Pos at 1:320(A) [facility] Comment: Mixed pattern present. 1:80 Titer seen with pattern resembling Midbody pattern. 1:320 Titer seen with Speckled pattern. ??Is suggestive of autoantibodies to Sm, COVER STITCH MACHINE OPERATOR, SCL-70, or SS-B. 1:320 Cytoplasmic pattern present using HEP-2 substrate. ??Is suggestive of autoantibodies to mitochondria or smooth muscle. Blood specimen (specimen) 05/15/2020 10:08 AM EST 05/16/2020 7:32 AM EST Narrative Resulting Agency Comment Spec In Lab Arnaldo Mccabe DO IMMUNOLOGY ORDERABL ES Performing Organization Address City/[facility]/ZIP Co de Phone Number [facility] [place] [address] * (ABNORMAL) Differential, Automated (05/15/2020 10:08 AM EST) Neutrophil % 71.2 % [facility] Neutrophil Absolute 3.16 1.70 - 6.10 x10(3)/mc L [facility] Lymph % 18.4 % [facility] Lymphocytes Abs 0.8(L) 0.9 - 3.2 x10(3)/mc L [facility] Monocyte % 7.6 % [facility] Monocyte Abs 0.3 0.3 - 0.9 x10(3)/[facility] Eos % 1.3 % [facility] Eosinophils Abs 0.1 0.0 - 0.4 x10(3)/[facility] Basophil % 1.3 % [facility] Baso Absolute 0.1 0.0 - 0.1 x10(3)/[facility] Immature Gran % 0.20 % [facility] Comment: Immature granulocytes(IG's)percentage and absolute count will include metamyelocytes, myelocytes, and promyelocytes. Blood smears from CBCs yielding IG's will be scanned manually for concordance. If this scan disagrees with the automated IG or if promyelocytes are noted, a manual differential will be performed. Immature Gran Absolute 0.01 0.00 - 0.04 x10(3)/[facility] Blood specimen (specimen) 05/15/2020 10:08 AM EST 05/15/2020 10:17 AM EST Narrative Resulting Agency Comment Spec In Lab Arnaldo Mccabe DO HEMATOLOGY ORDERABL ES [facility] [place] [address] * Hemogram (05/15/2020 10:08 AM EST) White Blood Cell 4.4 4.0 - 9.5 x10(3)/[facility] Red Blood Cell 4.04 4.00 - 5.21 x10(6)/[facility] Hemoglobin 12.5 11.7 - 15.5 gm/dL [facility] Hematocrit 37.8 35.7 - 45.8 % [facility] Mean Cell Volume 93.6 82.6 - 94.4 fL [facility] Mean Cell Hemoglobin 30.9 27.1 - 32.0 pg [facility] Mean Cell Hemoglobin Concentration 33.1 31.7 - 35.0 gm/dL [facility] Platelet 197 145 - 357 x10(3)/[facility] RDW Standard Deviation 39.8 37.0 - 46.0 fL [facility] RDW coefficient of variation 11.6 11.5 - 14.1 % [facility] Mean Platelet Volume 10.7 7.6 - 12.9 fL [facility] NRBC% auto 0.0 % [facility] NRBC Absolute 0.000 0.000 - 0.000 x10(3)/[facility] Blood specimen (specimen) 05/15/2020 10:08 AM EST 05/15/2020 10:17 AM EST Narrative Resulting Agency Comment Spec In Lab Arnaldo Mccabe DO HEMATOLOGY ORDERABL ES Performing Organization Address [facility]/RUST de Phone Number [facility] [place] [address] * Silica Clotting Time (05/15/2020 10:08 AM EST) Pathologist [facility] Silica Clotting Time 0.90 <=1.16 ratio [facility] Comment: A result greater than 1.16 TR is consistent with the presence of lupus anticoagulant. Values of 1.16 to 1.24 in this assay are not definitively positive or negative for the presence of a lupus anticoagulant. The SCT ratio may be falsely elevated in patients on anticoagulants, especially heparins and direct oral anticoagulants. An abnormal test result in an anticoagulated patient must therefore be interpreted with caution, and repeat testing after discontinuing anticoagulation may be appropriate. Blood specimen (specimen) 05/15/2020 10:08 AM EST 05/15/2020 10:17 AM EST Narrative Resulting Agency Comment Spec In Lab Arnaldo Mccabe DO HEMATOLOGY ORDERABL ES Performing Organization Address [facility]/ZIP Co de Phone Number [facility] [place] [address] * dRVVT (05/15/2020 10:08 AM EST) dRVVT 0.78 <=1.20 IU/mL [facility] Comment: A result greater than 1.20 TR is consistent with the presence of lupus anticoagulant. Values of 1.20 to 1.30 in this assay are not definitively positive or negative for the presence of a lupus anticoagulant. The DRVVT ratio may be falsely elevated in patients on anticoagulants, especially heparins and direct oral anticoagulants. An abnormal test result in an anticoagulated patient must therefore be interpreted with caution, and repeat testing after discontinuing anticoagulation may be appropriate. Blood specimen (specimen) 05/15/2020 10:08 AM EST 05/15/2020 10:17 AM EST Narrative Resulting Agency Comment Spec In Lab Arnaldo Mccabe DO HEMATOLOGY ORDERABL ES [facility] [place] [address] * (ABNORMAL) Comprehensive metabolic panel (non-fasting) (05/15/2020 10:08 AM EST) Glucose 86 65 - 199 mg/dL [facility] Comment:Diabetes: >=200 mg/d L plus symptoms Blood Urea Nitrogen 13 8 - 18 mg/dL [facility] Creatinine 0.82 0.70 - 1.20 mg/dL [facility] Sodium 137 135 - 145 mmol/L [facility] Potassium 3.8 3.5 - 5.0 mmol/L [facility] Comment: Please note: ??Patients with WBC >100,000 may have falsely elevated Potassium levels. ??For accurate Potassium quantification in these patients send serum separator tube (gold top) for subsequent determinations. ??Contact the Clinical Chemistry Laboratory if there are any questions. Chloride 102 98 - 107 mmol/L [facility] Carbon Dioxide 25 22 - 31 mmol/L [facility] Anion Gap 10 5 - 15 mmol/L [facility] Calcium 9.4 8.5 - 10.5 mg/dL [facility] Protein, Total 7.5 6.1 - 8.0 gm/dL [facility] Albumin 4.8 3.2 - 5.2 gm/dL [facility] Aspartate Aminotransferase 27 0 - 30 unit/L [facility] Alanine Aminotransferase 31(H) 0 - 30 unit/L [facility] Alkaline Phosphatase 38 35 - 105 unit/L [facility] Bilirubin, Total 0.3 0.2 - 1.3 mg/dL [facility] Est Glomerular Filtration Rate 86 >=60 mL/min/1. 73 m?? [facility] Comment: This patient? s [...] Lab Sandhya Mendoza DO CHEMISTRY ORDERABL ES [facility] [place] [address] * (ABNORMAL) ARNULFO ([facility]/CGP/APD/NLH) (05/15/2020 10:08 AM EST) ARNULFO Pos, See Titer(A) Neg [facility] Comment:Anti-nuclear antibod ies were tested using an indirect immunofluorescent assay. Blood specimen (specimen) 05/15/2020 10:08 AM EST 05/15/2020 1:40 PM EST Narrative Resulting Agency Comment Spec In Lab Sandhya Mendoza DO LAB SEND OUT ORDER DEANNE FLETCHER [facility] [place] [address] * Extractable Nuclear Antigen (COLBY) Ab (05/15/2020 10:08 AM EST) COLBY Ab Test ?Result ?Flag ??Unit ??RefValue Ab to Extractable Nuclear Ag Eval,S ??SS-A/Ro Ab, IgG, S ?<0.2 ?U ? <1.0 (Negative) ??SS-B/La Ab, IgG, S ?<0.2 ?U ? <1.0 (Negative) ??Sm Ab, IgG, S ? <0.2 ?U ? <1.0 (Negative) ??COVER STITCH MACHINE OPERATOR Ab, IgG, S ?0.7 ? U ? <1.0 (Negative) ??Scl 70 Ab, IgG, S ? <0.2 ?U ? <1.0 (Negative) ??Ivory 1 Ab, IgG, S ? <0.2 ?U ? <1.0 (Negative) ?Test Performed by: ?[facility] ?[address] [place] [address] ?Song Lyricist: Shay Low M.D. Ph.D.; IA# [id number] [facility] Blood specimen (specimen) 05/15/2020 10:08 AM EST 05/15/2020 2:04 PM EST Narrative Resulting Agency Comment Spec In Lab Sandhya Mendoza DO LAB SEND OUT ORDER DEANNE Performing Organization Address [facility] Co de Phone Number [facility] [place] [address] * TSH (05/15/2020 10:08 AM EST) Thyroid Stimulating Hormone 2.64 0.27 - 4.20 mcIU/mL [facility] Blood specimen (specimen) 05/15/2020 10:08 AM EST 05/15/2020 10:17 AM EST Narrative Resulting Agency Comment Spec In Lab Sandhya Mendoza DO CHEMISTRY ORDERABL ES Performing Organization Address [facility] Co de Phone Number [facility] [place] [address] * Vitamin D, 25-Hydroxy (05/15/2020 10:08 AM EST) Vitamin D Total 25 OH 38 21 - 100 ng/mL [facility] Vit D Interp Sufficient [facility] Blood specimen (specimen) 05/15/2020 10:08 AM EST 05/15/2020 10:17 AM EST Narrative Resulting Agency Comment Spec In Lab Sandhya Mendoza DO CHEMISTRY ORDERABL ES Performing Organization Address [facility] Phone Number [facility] [place] [address] * Beta-2 glycoprotein antibodies (05/15/2020 10:08 AM EST) Beta 2 Glycoprotein, IgG <9.4 <=20.0 unit(s) [facility] Beta 2 Glycoprotein, IgM <9.4 <=20.0 unit(s) [facility] B2GPI Interp No comment [facility] Blood specimen (specimen) 05/15/2020 10:08 AM EST 05/15/2020 1:40 PM EST Narrative Resulting Agency Comment Spec In Lab Sandhya Mendoza DO IMMUNOLOGY ORDERAB LES Performing Organization Address [facility]/[place]UST de Phone Number [facility] [place] [address] * Cardiolipin Antibody Screen (05/15/2020 10:08 AM EST) Cardiolipin Antibody IgG <9.4 <=14.9 GPL unit(s) [facility] Comment: Ranges ?? GPL ------ ?? --- Negative ?? <=14.9 Indeterminate ??15.0 - 20.0 Low/Medium Positive 20.1 - 80.0 High Positive ??>80.0 Cardiolipin Antibody IgM 10.1 <=12.5 MPL unit(s) [facility] Comment: Ranges ?? MPL ------ ?? --- Negative ?? <=12.5 Indeterminate ??12.6 - 20.0 Low/Medium Positive 20.1 - 80.0 High Positive ??>80.0 Blood specimen (specimen) 05/15/2020 10:08 AM EST 05/15/2020 1:40 PM EST Narrative Resulting Agency Comment Spec In Lab Sandhya Mendoza DO IMMUNOLOGY ORDERAB LES Performing Organization Address [facility]/ZIP Co de Phone Number [facility] [place] [address] * DNA Antibody (Double-Stranded) (05/15/2020 10:08 AM EST) DNA Ab (DS) Neg Neg [facility] Blood specimen (specimen) 05/15/2020 10:08 AM EST 05/15/2020 1:40 PM EST Narrative Resulting Agency Comment Spec In Lab Sandhya Mendoza DO LAB SEND OUT ORDER DEANNE Performing Organization Address [facility] Co de Phone Number [facility] [place] [address] * (ABNORMAL) C3 Complement (05/15/2020 10:08 AM EST) Complement C3 88(L) 90 - 180 mg/dL [facility] Blood specimen (specimen) 05/15/2020 10:08 AM EST 05/15/2020 10:17 AM EST Narrative Resulting Agency Comment Spec In Lab Sandhya Mendoza DO CHEMISTRY ORDERABL ES Performing Organization Address [facility] Co de Phone Number [facility] [place] [address] * C4 Complement (05/15/2020 10:08 AM EST) Complement C4 11 10 - 40 mg/dL [facility] Blood specimen (specimen) 05/15/2020 10:08 AM EST 05/15/2020 10:17 AM EST Narrative Resulting Agency Comment Spec In Lab Sandhya Mendoza DO CHEMISTRY ORDERABL ES Performing Organization Address City/[facility] Co de Phone Number [facility] [place] [address] * Sedimentation rate (05/15/2020 10:08 AM EST) Sedimentation Rate Automated 8 2 - 37 mm/hr [facility] Comment: Effective May 10, 2019 new capillary photometric technology has resulted in a change in reference ranges. It is recommended that each ESR result be reviewed with its own age appropriate reference range. Blood specimen (specimen) 05/15/2020 10:08 AM EST 05/15/2020 10:17 AM EST Narrative Resulting Agency Comment Spec In Lab Sandhya Mendoza DO HEMATOLOGY ORDERAB LES Performing Organization Address [facility] Co de Phone Number [facility] [place] [address] * CRP, acute inflammation (05/15/2020 10:08 AM EST) C-Reactive Protein 0.3 <=4.9 mg/L [facility] Blood specimen (specimen) 05/15/2020 10:08 AM EST 05/15/2020 10:17 AM EST Narrative Resulting Agency Comment Spec In Lab Sandhya Mendoza DO CHEMISTRY ORDERABL ES Performing Organization Address [facility] Co de Phone Number [facility] [place] [address] documented in this encounter Visit Diagnoses Diagnosis Arthralgia of both hands Hematochezia Blood in stool documented in this encounter Care Teams Control System Manager Relationship Specialty Start Date End Date Geraldo Gracia DNP [address] [place] [address] PCP - General Family Medicine 12/27/19 01/21/21 documented as of this encounter
--- OUTSIDE RECORDS SUMMARY | 2024-06-23 18:23 | XMS_ITS | Encounter Summary ---
Author Organization [facility] [place] [address] Care Team Providers Care Breaker Oiler Name Role Phone Keith Ruiz MD Primary Care Provider Unavailab le Encounter Details Date Type Department Care Team (Late st Contact Info) Description 02/11/2017 Orders [place] [address] Kelle Rosas APRN [facility] [place] [address] Lower abdominal pain Social History Tobacco Use [...] 9:45 AM EST Hospital Encounter [place] [phone] Flor Velasco MD [facility] [place] [address] 06/30/2024 9:45 AM EST - 06/30/2024 10:45 AM EST Surgery Gastroenterology at [place] [phone] Flor Velasco MD [facility] [place] [address] COLONOSCOPY, DIAGNOSTIC (WRVU 3.26) 07/27/2024 8:00 AM EST TH Visit (TeleHealth) [place] [address] Unruly Ramirez MD [facility] [place] [address] 08/03/2024 3:00 PM EST Office Visit Neurology at [address] [phone] Melvin Ramírez MD [facility] [place] [address] 08/25/2024 1:45 PM EDT Office [place] [address] Keven Church MD [facility] [place] [address] Scheduled Procedures Name Priority Associated Diagnoses Date/Ti me COLONOSCOPY, DIAGNOSTIC (WRV U 3.26) Hematochezia 06/30/2024 9:45 AM EST documented as of this encounter Results * Vitamin D, 25-Hydroxy (02/12/2017 10:37 AM EDT) Vitamin D Total 25 OH 39 30 - 100 ng/mL [facility] Comment: Deficient <10 ng/mL Insufficient 10 to 29 ng/mL Sufficient 30 to 100 ng/mL Potential Intoxication >100 ng/mL According to the [place] National Osteoporosis Foundation, Vitamin D concentrations >30 ng/mL are sufficient to protect bone health. ??The National Kidney Foundation has similarly stated that patients with Vitamin D concentrations <30ng/mL should be considered to be insufficient or deficient. http://thinkingphones.[employer]/nkf-guidelines http://thinkingphones.[employer]/nejm-VitD The [employer] Vitamin D Immunoassay detects both 25-OH Vitamin D2 and 25-OH Vitamin D3, but only a total Vitamin D concentration is reported. Blood specimen (specimen) 02/12/2017 10:37 AM EDT 02/12/2017 12:50 PM EDT Narrative Resulting Agency Comment Spec In Lab Tracia O'Radha BODY AND FENDER MECHANIC APPRENTICE CHEMISTRY ORDERABLES Performing Organization Address [facility] Co de Phone Number [facility] [place] [address] * Vitamin B12 (02/12/2017 10:37 AM EDT) Vitamin B12 768 207 - 974 pg/mL [facility] Blood specimen (specimen) 02/12/2017 10:37 AM EDT 02/12/2017 10:51 AM EDT Narrative Resulting Agency Comment Spec In Lab Tracia Jung'Radha BODY AND FENDER MECHANIC APPRENTICE CHEMISTRY ORDERABLES Performing Organization Address [facility] Co de Phone Number [facility] [place] [address] * Ferritin (02/12/2017 10:37 AM EDT) Ferritin 84 15 - 150 ng/mL [facility] Comment: Pediatric reference ranges not verified at [facility], interpret with caution. Reference ranges for females greater than 50 years of age approach values for men, i.e., 30-400 ng/mL. Blood specimen (specimen) 02/12/2017 10:37 AM EDT 02/12/2017 10:51 AM EDT Narrative Resulting Agency Comment Spec In Lab Tracia O'Radha BODY AND FENDER MECHANIC APPRENTICE CHEMISTRY ORDERABLES Performing Organization Address [facility]/State/ZIP Co de Phone Number [facility] [place] [address] * Tissue transglutaminase, IgA (02/12/2017 10:37 AM EDT) [facility] TTG IgA Ab 0.8 0.1 - 10.0 u/ml [facility] Comment: Negative = <7 U/mL Equivocal = 7-10 U/mL Positive = >10 U/mL Blood specimen (specimen) 02/12/2017 10:37 AM EDT 02/14/2017 1:56 PM EDT Narrative Resulting Agency Comment Spec In Lab Kelle Rosas APRN IMMUNOLOGY ORDERABLE S [facility] [place] [address] * Comprehensive metabolic panel (non-fasting) (02/12/2017 10:37 AM EDT) [facility] Glucose 85 65 - 199 mg/dL [facility] Comment:Diabetes: >=200 mg/d L plus symptoms Blood Urea Nitrogen 10 8 - 18 mg/dL [facility] Creatinine 0.75 0.70 - 1.20 mg/dL [facility] Comment: Please note that the pediatric reference intervals supplied above were not validated at [facility]. Results from pediatric patients should be interpreted in conjunction to the patient's age, height and muscle mass. Sodium 141 135 - 145 mmol/L [facility] Potassium 3.9 3.5 - 5.0 mmol/L [facility] Comment: Please note: ??Patients with WBC >100,000 may have falsely elevated Potassium levels. ??For accurate Potassium quantification in these patients send serum separator tube (gold top) for subsequent determinations. ??Contact the Clinical Chemistry Laboratory if there are any questions. Chloride 101 98 - 107 mmol/L [facility] Carbon Dioxide 27 22 - 31 mmol/L [facility] Anion Gap 13 5 - 15 mmol/L [facility] Calcium 9.5 8.5 - 10.5 mg/dL [facility] Protein, Total 7.2 6.1 - 8.0 gm/dL [facility] Albumin 4.7 3.2 - 5.2 gm/dL [facility] Aspartate Aminotransferase 23 0 - 30 unit/L [facility] Alanine Aminotransferase 19 0 - 30 unit/L [facility] Alkaline Phosphatase 41 40 - 104 unit/L [facility] Bilirubin, Total 0.2 0.2 - 1.3 mg/dL [facility] Est Glomerular Filtration Rate >60 >=60 [facility] Comment: This estimated GFR (eGFR) [...] the following links into your internet browser. http://compareit4me/DHnkdep http://compareit4me/DHMCnkf Blood specimen (specimen) 02/12/2017 10:37 AM EDT 02/12/2017 10:51 AM EDT Narrative Resulting Agency Comment Spec In Lab Tracia O'Radha BODY AND FENDER MECHANIC APPRENTICE CHEMISTRY ORDERABLES [facility] [place] [address] documented in this encounter Visit Diagnoses Diagnosis Lower abdominal pain Abdominal pain, other specified site Hematochezia Blood in stool documented in this encounter Care Teams Breaker Oiler Relationship Specialty Start Date End Date Keith Ruiz MD PCP - General 05/12/11 12/26/19 documented as of this encounter
--- OUTSIDE RECORDS SUMMARY | 2024-06-23 18:23 | XMS_ITS | Encounter Summary ---
[place] [address] Care Team Providers Care Pharmacy Messenger Name Role Phone Keith Ruiz MD Primary Care Provider Unavailab le Reason for Visit * Reason Comments Allergies * Allergy Testing (Routine) - Closed Specialty Diagnoses / Procedures Referred By Mikaela costa Referred To Contact Allergy Diagnoses Lower abdominal pain Kelle Rosas, [facility] [place] [address] [facility] [address] [place] [address] Referral ID Status Reason Start Date Expiration Date V isits Requested Visits Authorized [id number] Closed Consult, Test & Treat 02/11/2017 02/11/2018 1 1 Encounter Details Date Type Department Care Team (Late st Contact Info) Description 02/12/2017 9:00 AM EDT [place] [address] Maricel Mendieta MD Chronic abdominal pain; Celiac disease; Rash Social History Tobacco Use Types Packs/Day Years [...] Sign Reading Time Taken Comments Blood Pressure 97/59 02/12/2017 8:51 AM EDT Pulse 110 02/12/2017 8:51 AM EDT Temperature - - Respiratory Rate 20 02/12/2017 8:51 AM EDT Oxygen Saturation - - Inhaled Oxygen Concentration - - Weight 44.5 kg (98 lb) 02/12/2017 8:51 AM EDT Height 157.5 cm (5' 2) 02/12/2017 8:51 AM EDT Body Mass Index 17.92 02/12/2017 8:51 AM EDT documented in this encounter Patient Instructions * Patient Instructions* Maricel Mendieta MD - 02/12/2017 9:00 AM EDT 02/12/2017 Allergy skin prick tests Interpretation: Appropriate histamine, saline and glycerine controls. Negative tests to: Food: egg, milk, soybean, peanut, onion, pistachio, garlic - Continue to avoid gluten - Try keeping a food journal. Document food eaten, symptoms and time. Review every few weeks for a pattern. If there is a specific food that you notice causes you symptoms, then avoid that food for eight weeks. If no change in symptoms, then re- introduce food into your diet. If you feel better, continue to avoid it. - If rash recurs, discuss with your primary care provider being evaluated by a saw maker - Continue to follow up with Gastroenterelogy service documented in this encounter Progress Notes * Maricel Mendieta MD - 02/12/2017 9:00 AM EDT Chief Complaint Patient presents with ??? Allergies HPI The patient is a pleasant 41 y.o. year old female whose consultation was requested by . The reason for consultation is evaluation and management of possible food allergies. Patient Active Problem List Diagnosis ??? Constipation Patient has a history of Celiac disease. She has chronic abdominal pain that is sharp in the right mid quadrant that is non- radiating. This pain is triggered by gluten and other foods. The pain lasts from days to three weeks. Associated with nausea and constipation. No vomiting or diarrhea. She has lost ten pounds in the last month because of the abdominal pain. She has been to the ER three times for her abdominal pain in the last couple of years. She has had a Hysterectomy for menorrhagia and three c- sections. She has a rash that involves her arms and legs. The rash was initially felt to be secondary to Celiac disease. The rash lasts for months. The rash initially improved when she ate gluten- free. However, it has recurred. The rash is non- pruritic. The rash sometimes mike. She develops oral ulcers occasionally with local swelling. No dermatologic evaluation. She has not kept a food journal. No specific food trigger identified, except for gluten. No significant nasal congestion, rhinorrhea, itchy eyes. No asthma. Ex- smoker. Quit about twenty years ago. No current second hand smoke exposure. Review of Systems: All other systems reviewed and negative except as noted below: Review of Systems Constitution: Positive for weight loss. HENT: Positive for congestion. Postnasal drip Itchy mouth Skin: Positive for rash. Musculoskeletal: Positive for joint pain and myalgias. Gastrointestinal: Heartburn, nausea, abdominal pain, diarrhea, constipation. Neurological: Positive for headaches. Allergies, medications, past medical/ surgical history were reviewed and updated in eDH. Allergies: Gluten; Codeine phosphate; and Doxycycline monohydrate Medications: Outpatient Prescriptions Marked as Taking for the 02/12/17 encounter (Office Visit) with Maricel Mendieta MD Medication Sig Dispense Refill ??? busPIRone (BUSPAR) 10 mg Tablet Take 10 mg by mouth daily. 0 ??? DULCOLAX, BISACODYL, ORAL Take 1 tablet by mouth daily. ??? multivitamin (THERAGRAN) Tablet Take 1 tablet by mouth daily. ??? amitriptyline (ELAVIL) 100 mg Tablet take 1 tablet by mouth once daily 0 ??? zolpidem (AMBIEN) 5 mg Tablet take 1 tablet by mouth at bedtime if needed 30 DAY SUPPLY 0 Past Medical and Social History: History reviewed. No pertinent past medical history. Past Surgical History: Procedure Laterality Date ??? PRO COLONOSCOPY, BIOPSY N/A 11/11/2015 COLONOSCOPY FLEXIBLE, WITH BX performed by Rhett Underwood MD at [facility] END[facility]COPY ??? PRO UPPER GI ENDOSCOPY, BIOPSY N/A 11/11/2015 EGD WITH BIOPSY performed by Rhett Underwood MD at [facility] ENDOSCOPY ??? TONSILLECTOMY Family history: Family History Problem Relation Age of Onset ??? Asthma Father ??? Asthma Brother ??? Food Allergy Child ??? Allergic Rhinitis Neg Hx Social history: Social History Social History ??? Marital status: Spouse name: N/A ??? Number of children: N/A ??? Years of education: N/A Social History Main Topics ??? Smoking status: Never Smoker ??? Smokeless tobacco: Never Used Comment: no smokers in household ??? Alcohol use No Comment: rarely ??? Drug use: No ??? Sexual activity: Not Asked Other Topics Concern ??? 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 Physical Exam: Vital signs reviewed. Most Recent Vitals: 02/12/17 0851 BP: 97/59 Pulse: 110 Resp: 20 Normal Except General: - No apparent distress Eyes: - Conjunctivae without injection; - No eyelid swelling ENT: - No erythema of the tympanic membranes - Normal external ear canals - Nl nasal mucosa, septum, and turbinates; - Oropharynx well hydrated without lesions or exudates; - Face & sinuses non-tender to palpation/percussion Neck: - Symmetrical, no masses, trachea midline; Resp: - Unlabored breathing with symmetrical and equal bilateral expansion; - CTA w/o wheezes, rales, or rhonchi; CV: - Regular rate and rhythm - No pedal swelling GI: - Abdomen soft - Bowel sounds present - No hepatosplenomegaly Lymph: - No significant cervical, supraclavicular or infraclavicular lymphadenopathy Musculoskeletal: - Nl gait and station Extremities: - No clubbing, cyanosis, or edema Skin: - No rashes Neuro: - Nl gait and station Psych: - Nl and age appropriate mood and affect - Judgement and insight intact TESTS/PROCEDURES 02/12/2017 Allergy skin prick tests # tests: 10 Interpretation: Appropriate histamine, saline and glycerine controls. Negative tests to: Food: egg, milk, soybean, peanut, onion, pistachio, garlic IMPRESSION/REPORT/PLAN 1. Chronic abdominal pain 2. Celiac disease 3. Rash - Allergic skin tests to food reviewed and unremarkable to common food allergens and foods that patient suspected as trigger. - Unlikely that her chronic abdominal pain is due to an underlying IgE mediated food allergy to thefoods tested. Discussed with patient non- IgE- mediated food intolerances. - Continue to avoid gluten - Keep a food journal as detailed in AVS - Avoid foods not tolerated - If rash recurs, recommend Molder Offbearer evaluation and management - continue to follow with GI service for management of abdominal pain. Return if symptoms worsen or fail to improve, for adverse food reaction. eDH record was reviewed. Written instructions were reviewed and provided to the patient. No learning barriers were identified. The risks, benefits, alternatives and indications for the useof mediations prescribed or recommended during today's visit were reviewed with the patient. The patient understood and agreed with what was discussed. All questions were answered. documented in this encounter Plan of Treatment Upcoming Encounters Date Type Department Care Team (Latest Contact Info) Description 06/30/2024 9:45 AM EST Hospital Encounter [place] [address] Flor Velasco MD [facility] [place] [address] 06/30/2024 9:45 AM EST - 06/30/2024 10:45 AM EST Surgery [place] [address] Flor Velasco MD [facility] [place] [address] COLONOSCOPY, DIAGNOSTIC (WRVU 3.26) 07/27/2024 8:00 AM EST TH Visit (TeleHealth) [place] [address] Unruly Ramirez MD [facility] [place] [address] 08/03/2024 3:00 PM EST Office Visit Neurology at [facility] [address] [place] [address] Melvin Ramírez MD [facility] [place] [address] 08/25/2024 1:45 PM EDT Office [place] [address] Keven Church MD [facility] [place] [address] Scheduled Procedures Name Priority Associated Diagnoses Date/Ti me COLONOSCOPY, DIAGNOSTIC (WRV U 3.26) Hematochezia 06/30/2024 9:45 AM EST documented as of this encounter Procedures Procedure Name Priority Date/Time Associated Diagnosis Comments ALLERGY SCAN 02/12/2017 12:00 AM EDT documented in this encounter Results * SCAN DOC: ALLERGY (02/12/2017 12:00 AM EDT) Narrative 02/12/2017 12:00 AM EDT Ordered by an unspecified provider. Scanning Provider MEDIA MGR SCAN EXT O RDR/RSLT documented in this encounter Visit Diagnoses Diagnosis Chronic abdominal pain Abdominal pain, unspecified site Celiac disease Rash Rash and other nonspecific skin eruption Hematochezia Blood in stool documented in this encounter Care Teams Pharmacy Messenger Relationship Specialty Start Date End Date Keith Ruiz MD PCP - General 05/12/11 12/26/19 documented as of this encounter
--- OUTSIDE RECORDS SUMMARY | 2024-06-23 18:24 | XMS_ITS | Encounter Summary ---
[place] [address] Care Team Providers Care Mosaic Tile Maker Name Role Phone Keith Ruiz MD Primary Care Provider Unavailab le Reason for Visit * Auth/Cert Specialty Diagnoses / Procedures Referred By Mikaela costa Referred To Contact Diagnoses gerd, dyspepsia Procedures PRO UPPER GI ENDOSCOPY, DIAGNOSTIC PRO COLONOSCOPY, DIAGNOSTIC EGD, UPPER GI ENDOSCOPY COLONOSCOPY, DIAGNOSTIC Referral ID Status Reason Start Date Expiration Date Visits Re quested Visits Authorized [id number] 1 1 Encounter Details Date Type Department Care Team (Late st Contact Info) Description 11/11/2015 3:15 PM EDT - 11/11/2015 4:15 PM EDT [place] [address] Rhett Underwood MD [facility] [place] [address] EGD WITH BIOPSY (WRVU 2.39) Social History [...] Sign Reading Time Taken Comments Blood Pressure 114/74 11/11/2015 4:44 PM EDT Pulse 92 11/11/2015 4:44 PM EDT Temperature - - Respiratory Rate 16 11/11/2015 4:44 PM EDT Oxygen Saturation 99% 11/11/2015 4:44 PM EDT Inhaled Oxygen Concentration - - Weight - - Height - - Body Mass Index - - documented in this encounter Discharge Instructions * Discharge Instructions* Alyse Harding, RN - 11/11/2015 4:46 PM EDT UPPER GI ENDOSCOPY WHAT TO EXPECT AFTER THE PROCEDURE Medications You may have a mild sore throat. Ice chips, popsicles, over the counter throat lozenges or spray may help numb your throat. This procedure should not cause a fever. Call your healthcare provider or seek immediate medical attention if: You have trouble swallowing. You have belly pain. Your stools are black or tarlike or have streaks of blood. You are sick to your stomach or cannot keep fluids down. Watch closely for changes in your health, and be sure to contact your doctor IF Your throat still hurts after a day or two You do not get better as expected. Colonoscopy and polyp removal What to expect after the procedure You may feel a little more gassy or bloated than usual, this is normal. You should expect the return of normal bowel function in the next 2 to 3 days. Because some polyps were removed, you may see a little blood with the next few bowel movements, this should be a small amount ( less than a few tablespoons) and will resolve on it's own. ACTIVITY Because of the sedation that you received Your judgement and reaction time are effected ?? Go home and rest for the remainder for the day. You may resume your normal activities tomorrow ?? Change from one position to the next slowly because you may lose your balance unexpectedly. ?? Be careful on stairs, as you may be unsteady. FOR THE NEXT 24 HRS ?? DO NOT DRIVE OR OPERATE MACHINERY ?? DO NOT DRINK ALCOHOLIC BEVERAGES ?? DO NOT SIGN LEGAL DOCUMENTS ?? If you are a smoker: DO NOT SMOKE WHILE YOU ARE ALONE Diet ?? Start by eating small portions of foods that ordinarily will not upset your stomach, avoid gas producing foods for the next few days. ?? Be gentle with what you choose to start with ?? A soft diet may be helpful for the next 3 days as this may help to keep your stools soft. ?? Drink plenty of fluids ( unless your doctor has told you not to). Medicines Avoid medicines that influence the way your blood clots for the next week. These would include anti-inflammatory medicine, such as ibuprofen( Advil, Motrin) and naproxen ( Aleve). If you need something for discomfort, Tylenol (Acetaminophen) is safe if used as directed. Your Doctor will tell you when to restart your prescribed blood thinners The IV site-- slight tenderness, or redness is normal, you can use warm compresses if you get concerned. If the tenderness +/or redness increases or foul drainage and a red streak occurs, please contact your PCP immediately. When should you call for help? Call 911 anytime you think you may need emergency care. For example If you pass out (loss of consciousness) If you pass maroon or bloody stools If you have severe belly pain Call your healthcare provider or seek immediate medical care if: Your stools are black or tar like Your stools have streaks of blood that is more pronounced with each BM You have belly pain, or your belly is swollen and firm You vomit You have a fever You are very dizzy Watch closely for changes in your health, and be sure to contact your doctor if you have any problems. Your Doctor will let you know when you will need your next colonoscopy. The results of your test and your risk for colorectal cancer will help your doctor decide how often you need to be checked. Wednesday-Wednesday Same Day Endo [phone] 7a-8p Otherwise contact [phone] and ask to speak to the rodeo performer stone cleaner Follow up care is a ashraf part of your treatment and safety. Be sure to make and go to all appointments, and call your doctor if you are having problems. Discharge instructions reviewed with patient who expresses understanding documented in this encounter Medications at Time of Discharge Medication Sig Dispensed Refills Start Date End Date amitriptyline (Elavil) 25 mg Tablet Take 12.5 mg by mouth nightly. 0 10/17/2015 zolpidem (AMBIEN) 5 mg Tablet take 1 tablet by mouth at bedtime if needed 30 DAY SUPPLY 0 09/19/2015 08/14/2020 lubiprostone (AMITIZA) 8 mcg Capsule Take 1 capsule by mouth 2 times daily (with meals). 60 capsule 2 10/24/2015 02/12/2017 ibuprofen (ADVIL;MOTRIN) 600 mg tablet 600mg, PO, Three times daily - PRN 07/13/2006 10/02/2020 documented as of this encounter H&P Notes * Rhett Underwood MD - 11/11/2015 3:37 PM EDT Gastroenterology and Hepatology Pre-Procedure History and Physical Exam Procedure: Colonoscopy: Indication: Abdominal pain, celiac disease, constipation Patient Active Problem List Diagnosis Code ??? Constipation K59.00 EXAM: HEENT: Airway examined, oropharynx clear Mallampati Score: I (soft palate, uvula, fauces, tonsillar pillars visible) LUNGS: Clear to auscultation HEART: Regular rate and rhythm, normal S1, S2 ABDOMEN: Normal bowel sounds, soft, non tender, non distended, A/P Proceed with the planned endoscopic procedure. ASA 1 - Normal health patient Sedation Plan: moderate (conscious sedation) Risks and benefits of the procedure explained to the patient. Consent signed. documented in this encounter Plan of Treatment Upcoming Encounters Date Type Department Care Team (Latest Contact Info) Description 06/30/2024 9:45 AM EST Hospital En[place] [address] Flor Velasco MD [facility] [address] 06/30/2024 9:45 AM EST - 06/30/2024 10:45 AM EST [place] [address] Flor Velasco MD [facility] [address] COLONOSCOPY, DIAGNOSTIC (WRVU 3.26) 07/27/2024 8:00 AM EST TH Visit (TeleHealth) [place] [phone] Unruly Ramirez MD [facility] [place] [address] 08/03/2024 3:00 PM EST Office Visit Neurology at [address] [place] [address] [address] Melvin Ramírez MD [facility] [address] 08/25/2024 1:45 PM EDT Office [place] [phone] Keven Church MD [facility] [place] [address] Scheduled Procedures Name Priority Associated Diagnoses Date/Ti me COLONOSCOPY, DIAGNOSTIC (WRV U 3.26) Hematochezia 06/30/2024 9:45 AM EST documented as of this encounter Procedures Procedure Name Priority Date/Time Associated Diagnosis Comments SURGICAL PATHOLOGY REPORT Routine 11/11/2015 4:38 PM EDT SPECIMEN TO PATHOLOGY Routine 11/11/2015 4:38 PM EDT SPECIMEN TO PATHOLOGY Routine 11/11/2015 4:38 PM EDT SPECIMEN TO PATHOLOGY Routine 11/11/2015 4:38 PM EDT COLONOSCOPY FLEXIBLE, WITH BX (WRVU 3.56) 11/11/2015 3:43 PM EDT Other constipation Gastroesophageal reflux disease, esophagitis presence not specified EGD WITH BIOPSY (WRVU 2.39) 11/11/2015 3:43 PM EDT Other constipation Gastroesophageal reflux disease, esophagitis presence not specified UPPER GI ENDOSCOPY Routine 11/11/2015 3: 36 PM EDT COLONOSCOPY Routine 11/11/2015 3:35 PM EDT documented in this encounter Results * Surgical Pathology Report (11/11/2015 4:38 PM EDT) Final Diagnosis [id number] ? Location: 4T; EN04; A The signing pathologist has (i) examined the relevant preparation(s) for the specimen(s) and (ii) rendered or confirmed the diagnosis(es). . ?Surgical Pathology DIAGNOSIS A - Duodenum, ??biopsy: - Duodenal mucosa within normal limits. B - Cecum, ??biopsy: - Colonic mucosa with melanosis coli. C - Rectum, ??biopsy: - ??Rectal mucosa within normal limits. 11/12/15 AAY 11/12/15 Verified by: ? Yesi Liu MD ?Pathologist ?(Electronic Signature) The attending pathologist whose signature appears on this report has reviewed all diagnostic slides and has edited the gross and/or microscopic portion of the report in rendering the final pathologic diagnosis. CLINICAL INFORMATION Specimen Submitted: A - Normal appearing duodenal mucosa B - Granular appearing mucosa in cecum C - Lazara erythema rectum Clinical History: Abdominal pain, history of celiac disease Clinical Diagnosis: Same SPECIMEN PROCESSING A - Labeled/Fixativ e: Normal appearing duodenal mucosa, formalin. Quantity/Size: Five, 0.2-0.3 cm. Tissue Description: ??Soft, yellow-casas tissue ??. Sections/Proces sing: (T1) B - Labeled/Fixativ e: Granular appearing mucosa in cecum, formalin. Quantity/Size: Three, averaging 0.2 cm. Tissue Description: Soft, casas-brown tissues. Sections/Proces sing: (T1) C - Labeled/Fixativ e: Patchy erythema rectum, formalin. Quantity/Size: Single, 0.2 cm. Tissue Description: ??Soft, casas-pink tissue ??. Sections/Proces sing: (T1) ??ejr 11/12/2015 9:01 PM EDT [facility] GI Biopsy 11/11/2015 4:38 PM EDT 11/11/2015 4:38 PM EDT GI Biopsy 11/11/2015 4:38 PM EDT 11/11/2015 4:38 PM EDT GI Biopsy 11/11/2015 4:38 PM EDT 11/11/2015 4:38 PM EDT Rhett Underwood MD PATHOLOGY/CYTOLOGY ORDERABLES Performing Organization Address [facility] [place] [address] * Specimen to Pathology (surgical or derm) (11/11/2015 4:38 PM EDT) AP Specimen 11/11/2015 4:38 PM EDT 11/11/2015 4:38 PM EDT Narrative [facility] - 11/11/2015 4:38 PM EDT Specimen requisition ordered. ??Separate Pathology report to follow Rhett Underwood MD PATHOLOGY/CYTOLOGY ORDERABLES Performing Organization Address [facility]/ZIP Co de Phone Number [facility] [place] [address] * Specimen to Pathology (surgical or derm) (11/11/2015 4:38 PM EDT) AP Specimen 11/11/2015 4:38 PM EDT 11/11/2015 4:38 PM EDT Narrative [facility] - 11/11/2015 4:38 PM EDT Specimen requisition ordered. ??Separate Pathology report to follow Rhett Underwood MD PATHOLOGY/CYTOLOGY ORDERABLES Performing Organization Address City/[facility]/ZIP Co de Phone Number [facility] [place] [address] * Specimen to Pathology (surgical or derm) (11/11/2015 4:38 PM EDT) AP Specimen 11/11/2015 4:38 PM EDT 11/11/2015 4:38 PM EDT Narrative [facility] - 11/11/2015 4:38 PM EDT Specimen requisition ordered. ??Separate Pathology report to follow Rhett Underwood MD PATHOLOGY/CYTOLOGY ORDERABLES Performing Organization Address [facility]/State/ZIP Co de Phone Number [facility] [place] [address] * UPPER GI ENDOSCOPY (11/11/2015 3:36 PM EDT) UPPER GI ENDOSCOPY [facility] Endoscopy Patient Name: Karolina Richards ? Procedure Date: 11/11/2015 3:36 PM ? N: [id number] ? Date of : 1975 ? Age: 40 ? Order #: [id number] ? Procedure: ? Upper GI endoscopy Indications: ? Abdominal pain Providers: ? Rhett Underwood MD, Sandy Alberto ? Kristin Nolan, Senior Associate Referring MD: ?Rhett Underwood MD Medicines: ? Midazolam 3 mg IV, Fentanyl 150 ? micrograms IV, Diphenhydramine 50 mg ? IV Complications: ? No immediate complications. Procedure: ? Pre-Anesthesia Assessment: ? - Prior to the procedure, a History ? and Physical was performed, and ? patient medications, allergies and ? sensitivities were reviewed. The ? patient's tolerance of previous ? anesthesia was reviewed. ? - The risks and benefits of the ? procedure and the sedation options ? and risks were discussed with the ? patient. All questions were answered ? and informed consent was obtained. ? The procedure, indications, benefits, ? risks [...] the procedure well. ? Findings: ? The Z-line was regular and was found 36 cm from the ? incisors. ? The entire examined stomach was normal. ? The examined duodenum was normal. Biopsies for ? histology were taken with a cold forceps for for ? evaluation of celiac disease. ? Impression: ?- Z-line regular, 36 cm from the ? incisors. ? - Normal stomach. ? - Normal examined duodenum. Biopsied. ? -No peristalsis noted in stomach or ? duodenum during exam ? -Patulous GEJ Recommendation: ?- Await pathology results. ? ___ Rhett Underwood MD 11/11/2015 4:03:32 PM Number of Addenda: 0 Note Initiated On: 11/11/2015 3:36 PM [facility] 11/11/2015 3:36 PM EDT Rhett Underwood MD GENERAL SURGICAL OR DERABLES [facility] * COLONOSCOPY (11/11/2015 3:35 PM EDT) COLONOSCOPY [facility] Patient Name: Karolina Richards ? Procedure Date: 11/11/2015 3:35 PM ? N: [id number] ? Date of : 1975 ? Age: 40 ? Order #: [id number] ? Procedure: ? Colonoscopy Indications: ? Abdominal pain Providers: ? Rhett Underwood MD, Sandy Alberto ? Kristin Nolan, Senior Associate Referring MD: ?Rhett Underwood MD Medicines: ? Midazolam 1 mg IV, Fentanyl 50 ? micrograms IV Complications: ? No immediate complications. Procedure: ? Pre-Anesthesia Assessment: ? - Prior to the procedure, a History ? and Physical was performed, and ? patient medications, allergies and ? sensitivities were reviewed. The ? patient's tolerance of previous ? anesthesia was reviewed. ? - The risks and benefits of the ? procedure and the sedation options ? and risks were discussed with the ? patient. All questions were answered ? and informed consent was obtained. ? The procedure, indications, benefits, ? risks [...] under direct visualization, ? advanced to the terminal ileum. ? Careful inspection was made as the ? colonoscope was withdrawn. The ? colonoscopy was performed without ? difficulty. The patient tolerated the ? procedure well. The quality of the ? bowel preparation was fair. ? Findings: ? The perianal and digital rectal examinations were ? normal. ? The terminal ileum appeared normal. ? A diffuse area of granular mucosa was found in the ? cecum. Biopsies were taken with a cold forceps for ? histology. ? A patchy area of mildly erythematous mucosa was found ? in the rectum. This was biopsied with a cold forceps ? for histology. ? Impression: ?- The examined portion of the ileum ? was normal. ? - Granularity in the cecum. Biopsied. ? - Erythematous mucosa in the rectum. ? Biopsied. Recommendation: ?- Discharge patient to home. ? ____ Rhett Underwood MD 11/11/2015 4:41:04 PM Number of Addenda: 0 Note Initiated On: 11/11/2015 3:35 PM [facility] 11/11/2015 3:35 PM EDT Rhett Underwood MD GENERAL SURGICAL OR DERABLES [facility] documented in this encounter Visit Diagnoses Diagnosis Other constipation Gastroesophageal reflux disease, esophagitis presence not specified Hematochezia Blood in stool documented in this encounter Administered Medications Inactive Administered Medications - up to 3 most recent administrations Medication Order MAR Action Action Date Dose Rate Site diphenhydrAMINE (BENADRYL) injection ONCE PRN, Starting on Wed11/11/15 at 1549, Until Wed11/11/15 at 1959, Intra-Operative (Intra-Procedure), Routine Given 11/11/2015 3:52 PM EDT 25 mg Given 11/11/2015 3:49 PM EDT 25 mg fentaNYL 50 mcg/mL multi-dose injection ONCE PRN, Starting on Wed11/11/15 at 1546, Until Wed11/11/15 at 1959, Intra-Operative (Intra-Procedure), Routine Given 11/11/2015 4:06 PM EDT 50 mcg Given 11/11/2015 3:52 PM EDT 50 mcg Given 11/11/2015 3:49 PM EDT 50 mcg lactated ringers infusion 50 mL/hr, Intravenous, CONTINUOUS, Starting on Wed11/11/15 at 1545, Until Wed11/11/15 at 1757, Endoscopy (Day of Procedure) New Bag 11/11/2015 3:45 PM EDT 50 mL/hr 50 mL/hr midazolam (PF) (VERSED) 1 mg/mL multi-dose injection ONCE PRN, Starting on Wed11/11/15 at 1546, Until Wed11/11/15 at 1959, Intra-Operative (Intra-Procedure), Routine Given 11/11/2015 4:06 PM EDT 1 mg Given 11/11/2015 3:52 PM EDT 1 mg Given 11/11/2015 3:49 PM EDT 1 mg documented in this encounter Active and Recently Administered Medications Times are shown in EDT. Continuous Medication Order 11/09/2015 11/10/2015 11/11/2015 lactated ringers infusion (CANCELED) 50 mL/hr, Intravenous, CONTINUOUS, Starting on Wed11/11/15 at 1545, Until Wed11/11/15 at 1757, Endoscopy (Day of Procedure) 1545 (New Bag - Prov ider: Andria Nuñez RN) PRN Medication Order 11/09/2015 11/10/2015 11/11/2015 diphenhydrAMINE (BENADRYL) injection (CANCELED) ONCE PRN, Starting on Wed11/11/15 at 1549, Until Wed11/11/15 at 1959, Intra-Operative (Intra-Procedure), Routine 1549 (Given - Provid er: Sandy Nolan RN)1552 (Given - Provider: Sandy Nolan RN) fentaNYL 50 mcg/mL multi-dose injection (CANCELED) ONCE PRN, Starting on Wed11/11/15 at 1546, Until Wed11/11/15 at 1959, Intra-Operative (Intra-Procedure), Routine 1546 (Given - Provid er: Sandy Nolan RN)1549 (Given - Provider: Sandy Nolan RN)1552 (Given - Provider: Sandy Nolan RN)1606 (Given - Provider: Sandy Nolan, RN) midazolam (PF) (VERSED) 1 mg/mL multi-dose injection (CANCELED) ONCE PRN, Starting on Wed11/11/15 at 1546, Until Wed11/11/15 at 1959, Intra-Operative (Intra-Procedure), Routine 1546 (Given - Provid er: Sandy Nolan RN)1549 (Given - Provider: Sandy Nolan RN)1552 (Given - Provider: Sandy Nolan, RN)1606 (Given - Provider: Sandy Nolan, RN) documented in this encounter Care Teams Mosaic Tile Maker Relationship Specialty Start Date End Date Keith Ruiz MD PCP - General 05/12/11 12/26/19 documented as of this encounter
--- OUTSIDE RECORDS SUMMARY | 2024-06-23 18:24 | XMS_ITS ---
[place] [address] Care Team Providers Care Navy Diver Name Role Phone Geraldo Gracia NANNETTE Primary Care Provider [phone] Rheumatology Status:Ineligible (Enrolling) Start date:04/10/2024 Enrollment reason:Ineligible - Insurance Mandate Current support & services provided:Benefits Investigation, Prior Authorization Management Linked medications:belimumab (Active) Linked problems:Other forms of systemic lupus erythematosus (Active) Continued Care and Services Coordination
--- OUTSIDE RECORDS SUMMARY | 2024-06-23 18:24 | XMS_ITS | Clinical Summary ---
Author Organization [facility] Address [address] [place] [address] Care Team Providers Care Cancer Center Director Name Role Phone Geraldo Bailey [facility] Primary Care Provider [phone] Allergies Active Allergy Reactions Criticality Noted Date Comments Codeine Nausea And Vomiting,Rash 05/05/2017 Doxycycline Nausea And Vomiting 05/05/2017 Gluten Nausea And Vomiting,Other (See Comments),Rash High 10/24/2015 Also stomach aches very bad Medications zolpidem (AMBIEN) 5 mg tabletIndicatio ns:Slow transit constipation,Ce liac disease Take 2.5 mg by mouth at bedtime. Active busPIRone (BUSPAR) 10 mg tabletIndicatio ns:Slow transit constipation,Ce liac disease Take 15 mg by mouth daily. Active docusate sodium (COLACE) 50 mg capsuleIndicati ons:Slow transit constipation,Ce liac disease Take 50 mg by mouth at bedtime. Active amitriptyline (ELAVIL) 25 mg tablet Take 3 tabs at bedtime, taper as directed 30 Tab 8 Active Additional Information Patient taking differently: 12.5 mg oral AT BEDTIME, (No instructions reported), Reported on 08/17/2018 sertraline (ZOLOFT) 25 mg tablet Take 25 mg by mouth daily. Active MAGNESIUM ORAL Take 1,000 mg by mouth. Active traZODone (DESYREL) 50 mg tablet Take 50 mg by mouth at bedtime. Active Multivitamins with Minerals tablet tablet Take 1 Tab by mouth daily. Active Encounters Date Type Department Care Team Description 06/21/2024 Lab Requisition [facility] Pathology & Laboratory Medicine - [address] [address] Outr Resulting Lab, Provider from Last 3 Months Surgical History Surgery Date Site/Laterality Comments SECTION HYSTERECTOMY TUBAL LIGATION Medical History Medical History Date Comments Environmental allergies Anemia Anxiety Constipation Depression Pericardial effusion Family History Medical History Relation Comments High Blood Pressure Father Relation Status Comments Father Social History Tobacco Use Types Packs/Day Years Used Date Smoking Tobacco: Never Smokeless Tobacco: Never Interpersonal Safety Answer Date Record ed Physically Hurt Never 12/31/2019 Verbally Threaten Not on file 12/31/2019 Comments No Sex and Gender Information Value Date Recorded Sex Assigned at Not on file Legal Sex Female 18:01 EST Gender Identity Not on file Sexual Orientation Not on file Obstetrics History Last Filed Vital Signs Vital Sign Reading Time Taken Comments Blood Pressure 100/58 05/11/2019 0911 EST Pulse 80 05/11/2019 0911 EST Temperature - - Respiratory Rate 16 05/11/2019 0911 EST Oxygen Saturation 100% 08/17/2018 1029 EDT Inhaled Oxygen Concentration - - Weight 46.7 kg (103 lb) 05/11/2019 0911 EST celeste sutton Height 157.5 cm (5' 2) 05/11/2019 0911 EST Body Mass Index 18.84 05/11/2019 0911 EST Plan of Treatment Health Maintenance Due Date Last Done Comments Hepatitis C Screen 1975 Hepatitis B Vaccine (1 of 3 - 19+ 3-dose series) 06/24 COVID-19 Vaccine ( season) 2024 Procedures Procedure Name Priority Date/Time Associated Diagnosis Comments FECAL BACTERIAL PATHOGENS BY PCR Routine 06/19/2024 20:00 EST from Last 3 Months Results * FECAL BACTERIAL PATHOGENS BY PCR (06/19/2024 20:00 EST) Salmonella PCR Negative Negative 06/21/2024 22:10 EST [facility] Shigella/Enteroin vasive E. coli Negative Negative 06/21/2024 22:10 EST [facility] CAMPYLOBACTER PCR Negative Negative 06/21/2024 22:10 EST [facility] Shiga Toxin PCR Negative Negative 22:10 EST [facility] Feces SPECIMEN FROM RECTUM / Unknown 06/19/2024 20:00 EST 06/21/2024 17:30 EST us Provider Outr Resulting Lab MICROBIOLOGY - GENER AL ORDERABLES Final Result [facility] [address] [place] [address] from Last [address] [place] [address] [place] [address] Care Teams Cancer Center Director Relationship Specialty Start Date End Date Geraldo [place], [place] [address] PCP - General 05/11/19
--- OUTSIDE RECORDS SUMMARY | 2024-06-23 18:24 | XMS_ITS | Encounter Summary ---
Author Organization [facility] Address [address] [place] [address] Care Team Providers Care Electrical Apprentice Name Role Phone Keiht Ruiz MD Primary Care Provider [phone] Reason for Visit * Reason Comments New Patient Visit celiac Encounter Details Date Type Department Care Team (Latest Contact Info) Description 05/05/2017 10:00 EST Office Visit [facility] Gastroenterology - [address] [address] John Montes MD Slow transit constipation (Primary Dx); Celiac disease Social History Tobacco Use Types Packs/Day Years Used Date Smoking Tobacco: Never Smokeless Tobacco: Never Comments Unknown Sex and Gender Information Value Date Recorded Sex Assigned at Not on file Legal Sex Female 18:01 EST Gender Identity Not on file Sexual Orientation Not on file documented as of this encounter Last Filed Vital Signs Vital Sign Reading Time Taken Comments Blood Pressure 102/60 05/05/2017 0950 EST Pulse 96 05/05/2017 0950 EST Temperature - - Respiratory Rate 16 05/05/2017 0950 EST Oxygen Saturation - - Inhaled Oxygen Concentration - - Weight 44.9 kg (98 lb 14.4 oz) 05/05/[address] Height 157.5 cm (5' 2) 05/05/2017 0950 EST Body Mass Index 18.09 05/05/2017 0950 EST documented in this encounter Ordered Prescriptions Prescription Sig Dispense Quantity Refills Last Filled Start Date End Date amitriptyline (ELAVIL) 25 mg tabletIndications:S low transit constipation,Celiac disease Take 3 Tabs by mouth at bedtime. 30 Tab 4 05/05/2017 06/16/2017 documented in this encounter Progress Notes * John Montes MD - 05/05/2017 1000 EST This office note has been dictated. * John Montes MD - 05/05/[address] [facility] GASTROENTEROLOGY AND HEPATOLOGY PROGRESS / FOLLOWUP NOTE - 05/05/2017 SUBJECTIVE: Thank you, Dr Ruiz, for allowing me to see Karolina Richards, a 41-year-old white female with longstanding history of bowel issues. Her major complaint at this point in time is constipation. She had been evaluated and seen at [facility] for her chronic constipation and is referred here for an opinion regarding her constipation. She states she does not move her bowels unless she takes a stimulant and presently she is taking Dulcolax. She has tried low-dose MiraLax with minimal effect. Denies any dysphagia, no pain on swallowing. Appetite has been fine. She has had no weight loss. She does state that she has celiac disease diagnosed by blood tests in the past and has reportedly been on a gluten-free diet for at least 2 or 3 years. No vomiting, but does have nausea on occasion. No bright red blood per rectum or melena. Denies any fever or chills or joint problems. No blood inthe urine ALLERGIES: CODEINE and DOXYCYCLINE. PRESENT MEDICATIONS: Include: Amitriptyline 100 mg at bedtime. BuSpar. Colace. Ambien. PAST SURGICAL HISTORY: Significant for hysterectomy, tubal ligation and . SOCIAL HISTORY: Nonsmoker, rare alcohol, no IV drugs. OBJECTIVE: On examination today, blood pressure was 102/60, pulse 96, weight was 98 pounds for a BMI of 18. DIAGNOSTIC DATA: The patient had a small bowel follow through done in 01/2017, that showed normal small bowel follow through except for slow transit. MRI enterography done on 02/09/2017, showed copious stool, but otherwise unremarkable. CT scan done on 02/02/2017, showed dilated small bowel that subsequently was unremarkable on small bowel follow through and MRI enterography. CBC, TTG, CMP, ferritin and B12 were normal in 01/2017. The patient had an upper endoscopy and biopsies done at [facility] by Dr Underwood and a colonoscopy and biopsies done at [facility] in 10/2015 that were normal. An ultrasound of the right lower quadrantin 01/2017 was normal. The patient reportedly had a pericardial effusion diagnosed at [facility]. IMPRESSION: 1. Reported celiac disease by blood test. The patient is presently following a gluten-free ; EGDwith duodenal biopsy at [facility] while on gluten free diet was normal. 2. Chronic constipation with slow transit, possibly complicated by Elavil. The Elavil will be tapered slowly. As well, the patient will follow up with Dr Madison Pimentel for slow transit constipation. 3. ? pericardial effusion of unclear etiology. A cardiac consultation will be arranged with a possible followup echo. 4. Chronic constipation; ? Slow transit constipation. The patient will be treated with titrating doses of MiraLax. 5. Abdominal pain in RLQ to groin of unclear etiology; improved upon urination; ? Kidney stone to be assess by Dr Ruiz 6. Depression treated with Elavil; Dr Ruiz will try a newer antidepressant PLAN AND CONTINGENCY: As noted above, a cardiology consult with possible echo will be arranged. Consultation with Dr Madison Pimentel for slow transit constipation will be arranged as well. Elavil will be tapered. She will follow up with her primary care physician to change her antidepressant from Elavil to a newer antidepressant . Dr Ruiz will consider w/u for kidney stones as etiology of her intermittent RLQ pain John Montes MD, [facility] 10 32 AM - John Montes MD, AGA cn Dictation ID: [id number] cc: Keith Ruiz MD, [address] [address] documented in this encounter Plan of Treatment Not on file documented as of this encounter Visit Diagnoses Diagnosis Slow transit constipation- Primary Celiac disease documented in this encounter Discontinued Medications Medication Sig Discontinue Reason Start Date End Da te amitriptyline (ELAVIL) 100 mg tabletIndications:Slow transit constipation,Celiac disease Take 100 mg by mouth at bedtime. Reorder 05/05/2017 documented as of this encounter Historical Medications * This list may reflect changes made after this encounter. docusate sodium (COLACE) 50 mg capsuleIndication s:Slow transit constipation,Fay ac disease Take 50 mg by mouth at bedtime. busPIRone (BUSPAR) 10 mg tabletIndications :Slow transit constipation,Fay ac disease Take 15 mg by mouth daily. zolpidem (AMBIEN) 5 mg tabletIndications :Slow transit constipation,Fay ac disease Take 2.5 mg by mouth at bedtime. amitriptyline (ELAVIL) 100 mg tabletIndications :Slow transit constipation,Fay ac disease Take 100 mg by mouth at bedtime. 05/05/2017 added in this encounter Care Teams Electrical Apprentice Relationship Specialty Start Date End Date Keith Ruiz MD [address] [facility] [place] [id number] PCP - General 03/10/17 06/13/18 documented as of this encounter
--- OUTSIDE RECORDS SUMMARY | 2024-06-23 18:24 | XMS_ITS | Encounter Summary ---
Author Organization [facility] Address [address] [place] [address] Care Team Providers Care Woods Warden Name Role Phone Chaim Will MD Primary Care Provider [phone] Reason for Referral * Consult (Routine/Next Available) - Closed Specialty Diagnoses / Procedures Referred By Contact Referred To Contact Gastroenterology and Hepatology Diagnoses Celiac disease Campos Alan MD [facility] Gastroenterology - [address] [place] [address] Phone: tel: fax: Referral ID Status Reason Start Date Expiration Date V isits Requested Visits Authorized [id number] Closed Specialty Services Required 08/17/2018 1 1 Question Answer Reason for Request: History of celiac disease, with recent worsening symptoms (former patient of Kristopher Montes) Reason for Visit * Reason Comments Heart Problem 1 YR FUR PERICARDIAL EFFUSION Chest Pressure Encounter Details Date Type Department Care Team (Late st Contact Info) Description 08/17/2018 10:20 EDT Office Visit [facility] Cardiology - [address] [place] [address] Campos Alan MD Celiac disease (Primary Dx) Social History Tobacco Use Types [...] Sign Reading Time Taken Comments Blood Pressure 104/62 08/17/2018 1029 EDT Pulse 82 08/17/2018 1029 EDT Temperature - - Respiratory Rate - - Oxygen Saturation 100% 08/17/2018 1029 EDT Inhaled Oxygen Concentration - - Weight 46.3 kg (102 lb) 08/17/2018 1029 EDT Height 157.5 cm (5' 2) 08/17/2018 1029 EDT Body Mass Index 18.66 08/17/2018 1029 EDT documented in this encounter Functional Status * Because of a physical, mental, or emotional condition, does this person have difficulty doing errands alone such as visiting a doctor's office or shopping? Answer Date of Assessment Author No 08/17/2018 10:31 EDT documented as of this encounter Mental Status * Because of a physical, mental, or emotional condition, does this person have serious difficulty concentrating, remembering, or making decisions? Answer Entry Date Author No 08/17/2018 10:31 EDT documented in this encounter Progress Notes * Campos Alan MD - 08/17/2018 1020 EDT This office note has been dictated. * Campos Alan MD - 08/17/2018 0000 EDT [facility] CARDIOLOGY PROGRESS / FOLLOWUP NOTE - 08/17/2018 Chaim Wlil MD [address] [facility] [address], [address] [place] [address] Will: I am seeing your patient, Karolina Feng today in followup for her pericardial effusion.I first saw Karolina in May of last year, after a small pericardial effusion had been detected incidentally during an imaging evaluation for her celiac disease. At that point, we checked a CRP, which was very low, and arranged for a followup echocardiogram in 1 year, which is basically today. In the interim, she has been feeling well from a cardiac point of view with no symptoms suggestive ofpericarditis or pericardial effusion. However, she has continued to have considerable difficulty with her celiac disease and has been losing weight as well as having some joint symptoms. She has not seen anyone for this for some time. Medications: Amitriptyline 12.5 mg daily. Zoloft 25 mg daily. Ambien at bedtime. On physical examination today, she is a well-developed, slender woman in no distress. Her blood pressure is 104/62 and her pulse is 82. Her chest is clear and her cardiac examination is normal. She does not have any leg edema. Karolina had a repeat, limited echocardiogram today. It continues to appear completely normal except for a small pericardial effusion, which has not changed since the initial examination. Assessment and Management: Karolina has a small, stable, pericardial effusion, which is not causingany symptoms. At this point, I think it would be reasonable to have her undergo echocardiography pavel annual basis to make sure this is not changing This can easily be done near her home rather thanhaving her come down here for these examinations. If nothing is changing or the effusion is getting smaller, I do not think she needs to be seen further in cardiology. However, if anything is changing for the worse, we certainly should see her again. Accordingly, I have not scheduled a specific return visit for her. I have taken the liberty of requesting a GI consult for her. Please let me know if you have any questions about her. Yours sincerely, Campos Alan MD 10 56 AM - Campos Alan MD ln Dictation ID: [id number] cc: Chaim Will MD, [address] [place] [address], [facility] [address], [place] [address] documented in this encounter Plan of Treatment Scheduled Referrals Name Type Priority Associated Diagnoses Order Schedule AMB CONS/FOLLOW UP GASTROENTEROLOGY Outpatient Referral Routine Celiac disease Ordered: 08/17/2018 documented as of this encounter Visit Diagnoses Diagnosis Celiac disease- Primary documented in this encounter Historical Medications * This list may reflect changes made after this encounter. MAGNESIUM ORAL Take 1,000 mg by mouth. sertraline (ZOLOFT) 25 mg tablet Take 25 mg by mouth daily. added in this encounter Care Teams Woods Warden Relationship Specialty Start Date End Date Chaim Will MD PCP - General 06/14/18 05/10/19 documented as of this encounter
--- OUTSIDE RECORDS SUMMARY | 2024-06-23 18:24 | XMS_ITS | Encounter Summary ---
Author Organization [facility] Address [address] [place] [address] Care Team Providers Care Programs Assistant Name Role Phone Keith Ruiz MD Primary Care Provider [phone] Reason for Referral * Cardiology (Routine) - Closed Specialty Diagnoses / Procedures Referred By Contnikhil t Referred To Contact Diagnoses Pericardial effusion Procedures ECHOCARDIOGRAM LIMITED Campos Alan MD Referral ID Status Reason Start Date Expiration Date Visits Re quested Visits Authorized [id number] Closed 06/08/2017 1 1 Reason for Visit * Reason Onset Date Comments Other 06/08/2017 Encounter Details Date Type Department Care Team (Late st Contact Info) Description 06/08/2017 Telephone [facility] Cardiology - [address] [place], [place] [id number] Gini Parish, RN Other Social History Tobacco Use Types Packs/Day Years Used Date Smoking Tobacco: Never Smokeless Tobacco: Never Comments Unknown Sex and Gender Information Value Date Recorded Sex Assigned at Not on file Legal Sex Female 18:01 EST Gender Identity Not on file Sexual Orientation Not on file documented as of this encounter Miscellaneous Notes * Telephone Encounter - Giin Parish, MONI - 06/08/[address] Alan- pt needs limited echo for apt on 06/09/17. Discussed with Tally in echo and ok to add onto 06/09/17 at 8:30. Spoke with pt- she will come in at 8:20 for the echo and then visit with Dr. Alan. She has [employer] for insurance. No barriers identified documented in this encounter Plan of Treatment Not on file documented as of this encounter Procedures Procedure Name Priority Date/Time Associated Diagnosis Comments ECHOCARDIOGRAM LIMITED Routine 8 9:57 EST Pericardial effusion documented in this encounter Results * ECHOCARDIOGRAM LIMITED (06/09/2017 9:57 EST) Anatomical Region Laterality Modality Other 06/09/2017 9:57 EST Narrative 06/09/2017 10:01 EST *Interpreting Group:* *[facility]* [address] [place] [address] Date of study: 06/09/2017 Transthoracic Echocardiography M-mode, limited 2D, limited spectral Doppler, and color Doppler *STUDY CONCLUSIONS* Summary: 1. Left ventricle: The cavity size was normal. Wall thickness was ?? normal. Systolic function was hyperdynamic. The estimated ejection ?? fraction was 65-70%. Wall motion was normal; there were no regional ?? wall motion abnormalities. 2. Right ventricle: The cavity size was normal. Systolic function was ?? normal. 3. Inferior vena cava: The vessel was normal in size. The respirophasic ?? diameter changes were in the normal range (greater than or equal to ?? 50%), consistent with normal central venous pressure. 4. Pericardium, extracardiac: A small pericardial effusion was ?? identified. Respirophasic change in stroke volume was normal. *PATIENT PRESENTATION* Height: ? 157.5cm ((62in) ) S/D Pressure: 105 / 54 Weight: ? 44.5kg ((97.8lb) ) BSA: ?1.39m^2 Test start time: ??08:30 AM. Test stop time: ??09:00 AM. ATTENDING ?Campos Alan MD ORDERING ? Campos Alan MD REFERRING ?Keith Ruiz PERFORMING ?? [facility]ER ??Bel Gaxiola [facility] *PROCEDURE DATA* Procedure information: ??This study was interpreted by [facility]. Pertinent images and digital data are archived for permanent storage and are available for subsequent review. Study status: ??Routine. Transthoracic echocardiography. ??M-mode, limited 2D, limited spectral Doppler, and color Doppler. A Transthoracic Echocardiogram was performed. Scanning was performed from the parasternal, apical, and subcostal acoustic windows. Images were obtained using an ChromoTekq 12 cardiac ultrasound machine. Image quality was adequate. ??Study completion: ??The patient tolerated the procedure well. *INDICATIONS AND HISTORY* Indications: ?? Pericardial Effusion (I31.3). *CARDIAC ANATOMY* Left ventricle: ??The cavity size was normal. Wall thickness was normal. Systolic function was hyperdynamic. The estimated ejection fraction was 65-70%. Wall motion was normal; there were no regional wall motion abnormalities. Right ventricle: ??The cavity size was normal. Systolic function was normal. Pericardium: ??A small pericardial effusion was identified. ??Doppler: Respirophasic change in stroke volume was normal. Systemic veins: Inferior vena cava: The vessel was normal in size. The respirophasic diameter changes were in the normal range (greater than or equal to 50%), consistent with normal central venous pressure. Measurements Left ventricle ? Value ?Reference LV ID, ED, PLAX ?(L) ? 3.4 ?? cm 3.5 - 6.0 LV ID, ES, PLAX ?2.2 ?? cm 2.1 - 4.0 LV PW thickness, ED, PLAX ?0.9 ?? cm --------- LV end-diastolic volume, 1-p A2C ? 31 ?ml --------- LV ejection fraction, 1-p A2C ?63 ?% ??--------- LV end-diastolic volume, 1-p A4C ? 43 ?ml --------- LV ejection fraction, 1-p A4C ?76 ?% ??--------- Ventricular septum ? Value ?Reference IVS thickness, ED, PLAX ?0.9 ?? cm --------- Legend: (L) ??and ??(H) ??jennifer values outside specified reference range. I have personally reviewed the images and have reviewed and edited the reported findings. Electronically signed by Homero Gonzales MD 06/09/2017 10:01 Procedure Note Homero Gonzales MD - 06/09/2017 *Interpreting Group:* *[facility]* [address] [place] [address] Date of study: 06/09/2017 Transthoracic Echocardiography M-mode, limited 2D, limited spectral Doppler, and color Doppler *STUDY CONCLUSIONS* Summary: 1. Left ventricle: The cavity size was normal. Wall thickness was normal. Systolic function was hyperdynamic. The estimated ejection fraction was 65-70%. Wall motion was normal; there were no regional wall motion abnormalities. 2. Right ventricle: The cavity size was normal. Systolic function was normal. 3. Inferior vena cava: The vessel was normal in size. The respirophasic diameter changes were in the normal range (greater than or equal to 50%), consistent with normal central venous pressure. 4. Pericardium, extracardiac: A small pericardial effusion was identified. Respirophasic change in stroke volume was normal. *PATIENT PRESENTATION* Height: 157.5cm ((62in) ) S/D Pressure: 105 / 54 Weight: 44.5kg ((97.8lb) ) BSA: 1.39m^2 Test start time: 08:30 AM. Test stop time: 09:00 AM. ATTENDING Campos Alan MD ORDERING Campos Alan MD REFERRING Keith Ruiz [facility], Op LINING IRONER Bel Gaxiola [facility] *PROCEDURE DATA* Procedure information: This study was interpreted by [facility]. Pertinent images and digital data are archived for permanent storage and are available for subsequent review. Study status: Routine. Transthoracic echocardiography. M-mode, limited 2D, limited spectral Doppler, and color Doppler. A Transthoracic Echocardiogram was performed. Scanning was performed from the parasternal, apical, and subcostal acoustic windows. Images were obtained using an ChromoTekq 12 cardiac ultrasound machine. Image quality was adequate. Study completion: The patient tolerated the procedure well. *INDICATIONS AND HISTORY* Indications: Pericardial Effusion (I31.3). *CARDIAC ANATOMY* Left ventricle: The cavity size was normal. Wall thickness was normal. Systolic function was hyperdynamic. The estimated ejection fraction was 65-70%. Wall motion was normal; there were no regional wall motion abnormalities. Right ventricle: The cavity size was normal. Systolic function was normal. Pericardium: A small pericardial effusion was identified. Doppler: Respirophasic change in stroke volume was normal. Systemic veins: Inferior vena cava: The vessel was normal in size. The respirophasic diameter changes were in the normal range (greater than or equal to 50%), consistent with normal central venous pressure. Measurements Left ventricle Value Reference LV ID, ED, PLAX (L) 3.4 cm 3.5 - 6.0 LV ID, ES, PLAX 2.2 cm 2.1 - 4.0 LV PW thickness, ED, PLAX 0.9 cm --------- LV end-diastolic volume, 1-p A2C 31 ml --------- LV ejection fraction, 1-p A2C 63 % --------- LV end-diastolic volume, 1-p A4C 43 ml --------- LV ejection fraction, 1-p A4C 76 % --------- Ventricular septum Value Reference IVS thickness, ED, PLAX 0.9 cm --------- Legend: (L) and (H) jennifer values outside specified reference range. I have personally reviewed the images and have reviewed and edited the reported findings. Electronically signed by Homero Gonzales MD 06/09/2017 10:01 us Campos Alan MD CARDIAC ECHO ORDERABLE S Final Result documented in this encounter Visit Diagnoses Diagnosis Pericardial effusion- Primary Unspecified disease of pericardium documented in this encounter Care Teams Programs Assistant Relationship Specialty Start Date End Date Keith Ruiz MD [address] [facility] [id number] PCP - General 03/10/17 06/13/18 documented as of this encounter
--- OUTSIDE RECORDS SUMMARY | 2024-06-23 18:24 | XMS_ITS | Encounter Summary ---
[place] [address] Care Team Providers Care Dry Plasterer Helper Name Role Phone Keith Ruiz MD Primary Care Provider Unavailab le Reason for Visit * Auth/Cert Specialty Diagnoses / Procedures Referred By Mikaela costa Referred To Contact Diagnoses gerd, dyspepsia Procedures PRO UPPER GI ENDOSCOPY, DIAGNOSTIC PRO COLONOSCOPY, DIAGNOSTIC EGD, UPPER GI ENDOSCOPY COLONOSCOPY, DIAGNOSTIC Referral ID Status Reason Start Date Expiration Date Visits Re quested Visits Authorized [id number] 1 1 Encounter Details Date Type Department Care Team (Latest Contact Info) Description 11/11/2015 1:58 PM EDT - 11/11/2015 5:59 PM EDT Hospital En[place] [address] Rhett Underwood MD [facility] DR [place] [address] Discharge Disposition: Home Social History Tobacco Use [...] encounter Discharge Instructions * Discharge Instructions* Alyse Harding RN - 11/11/2015 4:46 PM EDT UPPER [...] to be checked. Wednesday-Wednesday Same Day Endo [phone] Otherwise contact [phone] and ask to speak to the radiator fitter production superintendent Follow up care is a ashraf part [...] 9:45 AM EST Hospital Encounter [place] [address] Flor Velasco MD [facility] [place] [address] 06/30/2024 9:45 AM EST - 06/30/2024 10:45 AM EST Surgery [place] [address] Flor Velasco MD [facility] [place] [address] COLONOSCOPY, DIAGNOSTIC (WRVU 3.26) 07/27/2024 8:00 AM EST TH Visit (TeleHealth) [place] [address] Unruly Ramirez MD [facility] DR [place] [address] 08/03/2024 3:00 PM EST Office Visit Neurology at [address] [address] Melvin Ramírez MD [facility] [place] [address] 08/25/2024 1:45 PM EDT Office [place] [phone] Keven Churhc MD [facility] [place] [address] Scheduled Procedures Name Priority Associated Diagnoses Date/Ti [...] Report (11/11/2015 4:38 PM EDT) Final Diagnosis [id number] ? Location: 4T; EN04; A The signing [...] sing: (T1) ??ejr 11/12/2015 9:01 PM EDT [facility] GI Biopsy 11/11/2015 4:38 PM EDT 11/11/2015 4:38 PM EDT GI Biopsy 11/11/2015 4:38 PM EDT 11/11/2015 4:38 PM EDT GI Biopsy 11/11/2015 4:38 PM EDT 11/11/2015 4:38 PM EDT Rhett Underwood MD PATHOLOGY/CYTOLOGY ORDERABLES Performing Organization Address City/[facility]/[place] [address] * Specimen to Pathology (surgical or derm) (11/11/2015 4:38 PM EDT) AP Specimen 11/11/2015 4:38 PM EDT 11/11/2015 4:38 PM EDT Narrative [facility] - 11/11/2015 4:38 PM EDT Specimen requisition ordered. ??Separate Pathology report to follow Rhett Underwood MD PATHOLOGY/CYTOLOGY ORDERABLES Performing Organization Address City/[facility]/ZIP Co de Phone Number [facility] [place] [address] * Specimen to Pathology (surgical or derm) (11/11/2015 4:38 PM EDT) AP Specimen 11/11/2015 4:38 PM EDT 11/11/2015 4:38 PM EDT Narrative [facility] - 11/11/2015 4:38 PM EDT Specimen requisition ordered. ??Separate Pathology report to follow Rhett Underwood MD PATHOLOGY/CYTOLOGY ORDERABLES [facility] [place] [address] * Specimen to Pathology (surgical or derm) (11/11/2015 4:38 PM EDT) AP Specimen 11/11/2015 4:38 PM EDT 11/11/2015 4:38 PM EDT Narrative [facility] - 11/11/2015 4:38 PM EDT Specimen requisition ordered. ??Separate Pathology report to follow Rhett Underwood MD PATHOLOGY/CYTOLOGY ORDERABLES [facility] [place] [address] * UPPER GI ENDOSCOPY (11/11/2015 3:36 PM EDT) UPPER GI ENDOSCOPY [facility] Endoscopy Patient Name: Karolina Richards ? Procedure Date: 11/11/2015 3:36 PM ? N: [id number] ? Date of : 1975 ? Age: 40 ? Order #: [id number] ? Procedure: ? Upper GI endoscopy Indications: ? Abdominal pain Providers: ? Rhett Underwood MD, Sandy Alberto ? Kristin Nolan, Tubing Mill Operator Referring MD: ?Rhett Underwood MD Medicines: ? [...] ?- Await pathology results. ? ___ Rhett Underowod MD 11/11/2015 4:03:32 PM Number of Addenda: 0 Note Initiated On: 11/11/2015 3:36 PM PROVATION 11/11/2015 3:36 PM EDT Rhett Underwood MD GENERAL SURGICAL OR DERABLES PROVATION * COLONOSCOPY (11/11/2015 3:35 PM EDT) COLONOSCOPY [facility] Endoscopy Patient Name: Karolina Richards ? Procedure Date: 11/11/2015 3:35 PM ? [facility]: [id number] ? Date of : 1975 ? Age: 40 ? Order #: [id number] ? Procedure: ? Colonoscopy Indications: ? Abdominal pain Providers: ? Rhett Underwood MD, Sandy Alberto ? Kristin Nolan, Tubing Mill Operator Referring MD: ?Rhett Underwood MD Medicines: ? [...] Date Dose Rate Site lactated ringers infusion 50 mL/hr, Intravenous, CONTINUOUS, Starting on Wed11/11/15 at 1545, Until Wed11/11/15 at 1757, Endoscopy (Day of Procedure) New Bag 11/11/2015 3:45 PM EDT 50 mL/hr 50 mL/hr documented in this encounter Active and [...] Nolan RN)1552 (Given - Provider: Sandy Nolan, RN) fentaNYL 50 mcg/mL multi-dose injection (CANCELED) ONCE PRN, Starting on Wed11/11/15 at 1546, Until Wed11/11/15 at 1959, Intra-Operative (Intra-Procedure), Routine 1546 (Given - Provid er: Sandy Nolan RN)1549 (Given - Provider: Sandy Nolan, RN)1552 (Given - Provider: Sandy Nolan, RN)1606 (Given - Provider: Sandy Nolan, RN) midazolam (PF) (VERSED) 1 mg/mL multi-dose injection (CANCELED) ONCE PRN, Starting on Wed11/11/15 at 1546, Until Wed11/11/15 at 1959, Intra-Operative (Intra-Procedure), Routine 1546 (Given - Provid er: Sandy Nolan RN)1549 (Given - Provider: Sandy Nolan RN)1552 (Given - Provider: Sandy Nolan RN)1606 (Given - Provider: Sandy Nolan RN) documented in this encounter Care Teams Dry Plasterer Helper Relationship Specialty Start Date End Date Keith Riuz MD PCP - General 05/12/11 12/26/19 documented as of this encounter
--- OUTSIDE RECORDS SUMMARY | 2024-06-23 18:24 | XMS_ITS | Encounter Summary ---
Author Organization [facility] Address [address] [place] [address] Care Team Providers Care Digital Product Manager Name Role Phone Keith Ruiz MD Primary Care Provider [phone] Encounter Details Date Type Department Care Team (Latest Contact Info) Description 06/09/2017 10:00 EST Procedure visit [facility] Endocrinology - [address] [id number] Campos Alan MD Phlebotomy, [facility] Endo Pericardial effusion (Primary Dx) Discharge Disposition: Auto Discharge Social History Tobacco Use Types Packs/Day Years Used Date Smoking Tobacco: Never Smokeless Tobacco: Never Comments Unknown Sex and Gender Information Value Date Recorded Sex Assigned at Not on file Legal Sex Female 18:01 EST Gender Identity Not on file Sexual Orientation Not on file documented as of this encounter Discharge Diagnoses Diagnosis I31.3 Pericardial effusion (noninflammatory)-I31.3[ICD-10-CM] documented in this encounter Discharge Disposition Disposition Code Departure Means Destination Auto Discharge documented in this encounter Progress Notes * Karely Alvarado - 06/09/2017 1000 EST Venipuncture preformed for C-reactive H.S. Per orders of Ayaz Alan Diagnosis of I31.3 423.9 I was supervised by Ayaz Sommer who was present and immediately available in the office suite. Karely Alvarado 06/09/2017 9:54 documented in this encounter Plan of Treatment Not on file documented as of this encounter Procedures Procedure Name Priority Date/Time Associated Diagnosis Comments HIGH SENSITIVITY C-REACTIVE PROTEIN (CARDIOVASCULAR DISEASE) Routine 06/09/2017 9:40 EST Pericardial effusion documented in this encounter Results * HIGH SENSITIVITY C-REACTIVE PROTEIN (CARDIOVASCULAR DISEASE) (06/09/2017 9:40 EST) High Sensitivity CRP <0.2 mg/L 06/09/2017 14:03 EST [facility] Comment: Reference Range: <1.0 mg/L Low risk 1.0-3.0 mg/L Average risk >3.0 mg/L High risk >10.0 mg/L Acute inflammation Blood specimen (specimen) BLOOD SPECIMEN / Unknown 06/09/2017 9:40 EST 06/09/2017 11:55 EST us Campos Alan MD CHEMISTRY & BLOOD GAS ORDERABLES Final Result [facility] [address] [place] [address] documented in this encounter Visit Diagnoses Diagnosis Pericardial effusion- Primary Unspecified disease of pericardium documented in this encounter Care Teams Digital Product Manager Relationship Specialty Start Date End Date Keith Ruiz MD [address] [address] PCP - General 03/10/17 06/13/18 documented as of this encounter
--- OUTSIDE RECORDS SUMMARY | 2024-06-23 18:24 | XMS_ITS | Encounter Summary ---
Author Organization [facility] Address [facility] [place] [address] Care Team Providers Care It Programmer Analyst Name Role Phone Keith Ruiz MD Primary Care Provider [facility] Encounter Details Date Type Department Care Team (Latest Contact Info) Description 01/19/2017 10:04 AM EDT - 01/19/2017 11:59 PM EDT Hospital [place] [address] Kelle Rosas APRN [facility] [place] [address] RUQ abdominal pain Discharge Disposition: Home Social History [...] 12.5 mg by mouth nightly. 0 10/17/2015 multivitamin (THERAGRAN) Tablet Take 1 tablet by [...] 9:45 AM EST Hospital Encounter [place] [address] Flor Velasco MD [facility] [place] [address] 06/30/2024 9:45 AM EST - 06/30/2024 10:45 AM EST [place] [address] Flor Velasco MD [facility] [place] [address] COLONOSCOPY, DIAGNOSTIC (WRVU 3.26) 07/27/2024 8:00 AM EST TH Visit (TeleHealth) [place] [address] Unruly Ramirez MD [facility] [place] [address] 08/03/2024 3:00 PM EST Office Visit Neurology at [address] [address] Melvin Ramírez MD [facility] [place] [address] 08/25/2024 1:45 PM EDT Office [place] [address] Keven Church MD [facility] [place] [address] Scheduled Procedures Name Priority Associated Diagnoses Date/Ti me COLONOSCOPY, DIAGNOSTIC (WRV U 3.26) Hematochezia 06/30/2024 9:45 AM EST documented as of this encounter Procedures Procedure Name Priority Date/Time Associated Diagnosis Comments US ABDOMEN LIMITED Routine 01/19/2017 10 :42 AM EDT RUQ abdominal pain documented in this encounter Results * (ABNORMAL) US Abdomen Limited (01/19/2017 10:42 AM EDT) Anatomical Region Laterality Modality Abdomen Ultrasound 01/19/2017 10:2 0 AM EDT Impressions 01/19/2017 11:48 AM EDT ??1. ??Normal right upper quadrant ultrasound without evidence of cholelithiasis oracute cholecystitis.2. Unexpected finding: Small to moderate simple appearing pericardial effusionof uncertain etiology. I have personally reviewed the image(s) and the residents interpretation andagree with the findings, Chip Coon at 01/19/2017 11:42 AM ? Chip Coon MD Electronically Signed Final Report ?? 01/19/2017 11:48 am Narrative 01/19/2017 11:48 AM EDT Abdominal ? (Signed Final 01/19/2017 11:48 am) PATIENT INFO: ID #: ? [id number] ?: ??[birth year] (41 yrs) Name: ? JOE L ? Visit Date: 01/19/2017 10:20 am ? MAURICE PERFORMED BY: Performed By: ? Rosa ARZOLA, ??Katie Attending: ?Jaymie WADE, Chip Shepard Resident: ? Nora Nunez DO Referred By: ?ANDRESAdi BOB Location: ? [place] SERVICE(S) PROVIDED: ??UABDLIM - Abdominal Limited Survey Single ? [id number] ??Organ or Quadrant - [id number] INDICATIONS: ??RUQ pain COMPARISON: Prior CT: 10/21/2015 ------ LIVER: ------ Right Lobe Length: ?? 12.6 ?? cm Echogenicity/Echotexture: ?? Normal GALLBLADDER: Cholelithiasis: ?No stones visualized Wall Thickness: ?1. mm Focal Tenderness: ?Negative sonographic Tolentino's sign BILIARY TRACT: Intrahepatic Ducts: ?? Normal Extrahepatic Ducts: ?? Normal Common Duct Size: ? 2.0 ? mm --------- PANCREAS: --------- Head: ? Normal Tail: ? Poorly visualized due to overlying bowel Body: ? Normal RIGHT KIDNEY: Size (cm) ?L: ??9.4 Cortical Thickness: ?Normal Cortical Echogenicity: ?? Normal Hydronephrosis: ?No sonographic evidence ------ AORTA: ------ Measurements (cm): Proximal ? AP: ?? 1.9 Mid ?AP: ?? 1.2 ---- IVC: ---- Normal in caliber where visualized. FLUID COLLECTIONS: Pericardial effusion. Resulting Agency Comment Unexpected Finding Kelle Rosas APRN IMG US GEN ORDERABLE S documented in this encounter Visit Diagnoses Diagnosis RUQ abdominal pain Abdominal pain, right upper quadrant Hematochezia Blood in stool documented in this encounter Care Teams It Programmer Analyst Relationship Specialty Start Date End Date Keith Ruiz MD PCP - General 05/12/11 12/26/19 documented as of this encounter
--- OUTSIDE RECORDS SUMMARY | 2024-06-23 18:24 | XMS_ITS | Encounter Summary ---
Author Organization [facility] Address [address] [place] [address] Care Team Providers Care Sheep Or Calf Grader Name Role Phone Geraldo Bailey [facility] Primary Care Provider [phone] Encounter Details Date Type Department Care Team (Late st Contact Info) Description 06/21/2024 Lab Requisition [facility] Pathology & Laboratory Medicine - [facility] [address] [place] [address] Outr Resulting Lab, Provider Social History Tobacco Use Types Packs/Day Years [...] on file documented as of this encounter Functional Status * Because of [...] 08/17/2018 10:31 EDT documented in this encounter Plan of Treatment Not on file documented as of this encounter Procedures Procedure Name Priority Date/Time Associated Diagnosis Comments FECAL BACTERIAL PATHOGENS BY PCR Routine 06/19/2024 20:00 EST documented in this encounter Results * FECAL BACTERIAL PATHOGENS BY PCR (06/19/2024 20:00 EST) Salmonella PCR Negative Negative 06/21/2024 22:10 EST [facility] Shigella/Enteroin vasive E. coli Negative Negative 06/21/2024 22:10 EST [facility] HN LAB CAMPYLOBACTER PCR Negative Negative 06/21/2024 22:10 EST [facility] Shiga Toxin PCR Negative Negative 22:10 EST [facility] Feces SPECIMEN FROM RECTUM / Unknown 06/19/2024 20:00 EST 06/21/2024 17:30 EST us Provider Outr Resulting Lab MICROBIOLOGY - GENER AL ORDERABLES Final Result [facility] [address] [place], [place] [address] documented in this encounter Visit Diagnoses Not on filedocumented in this encounter Care Teams Sheep Or Calf Grader Relationship Specialty Start Date End Date Geraldo Bailey, DNP [facility] [address] PCP - General 05/11/19 documented as of this encounter
--- OUTSIDE RECORDS SUMMARY | 2024-06-23 18:24 | XMS_ITS | Encounter Summary ---
Author Organization [facility] Address [address] [place] [address] Care Team Providers Care Pbx Installer Name Role Phone Keith Ruiz MD Primary Care Provider [phone] Reason for Referral * Consult (Routine) - Closed Specialty Diagnoses / Procedures [facility] Referred To Contact Pelvic Medicine Diagnoses Slow transit constipation John Montes MD Evans, Krista E, MD Phone: tel: fax: Referral ID Status Reason Start Date Expiration Date V isits Requested Visits Authorized [id number] Closed Specialty Services Required 05/05/2017 1 1 Question Answer Reason for Request: slow transit constiaption; EGD and colonoscopy done 10/2105 at [facility] normal; trying to taper Elavil Encounter Details Date Type Department Care Team (Latest Contact Info) Description 05/05/2017 Orders Only [facility] Gastroenterology - Main [place] [address] [place] [address] John Montes MD Slow transit constipation (Primary Dx) Social History Tobacco Use Types Packs/Day Years Used Date Smoking Tobacco: Never Smokeless Tobacco: Never Comments Unknown Sex and Gender Information Value Date Recorded Sex Assigned at Not on file Legal Sex Female 18:01 EST Gender Identity Not on file Sexual Orientation Not on file documented as of this encounter Plan of Treatment Scheduled Referrals Name Type Priority Associated Diagnoses Orde r Schedule AMB CONS/FOLLOW UP GENERAL SURGERY Outpatient Referral Routine Slow transit constipation Ordered: 05/05/2017 documented as of this encounter Visit Diagnoses Diagnosis Slow transit constipation- Primary documented in this encounter Care Teams Pbx Installer Relationship Specialty Start Date End Date Keith Ruiz MD [address] [place] [place] [address] PCP - General 03/10/17 06/13/18 documented as of this encounter
--- OUTSIDE RECORDS SUMMARY | 2024-06-23 18:24 | XMS_ITS | Encounter Summary ---
Author Organization [facility] [place] [address] Care Team Providers Care Aerospace Medicine Physician Name Role Phone Keith Ruiz MD Primary Care Provider Unavail le Encounter Details Date Type Department Care Team (Latest Contact Info) Description 02/02/2017 - 02/02/2017 12:04 AM EDT Hospital Encounter Radiology [facility] at [facility] [place] [address] Kelle Rosas APRN [facility] [place] [address] Pain Discharge Disposition: Home Social History Tobacco Use [...] 9:45 AM EST Hospital En[place] [address] Flor Velasco MD [facility] [place] [address] 06/30/2024 9:45 AM EST - 06/30/2024 10:45 AM EST Surgery [place] [address] Flor Velasco MD [facility] [place] [address] COLONOSCOPY, DIAGNOSTIC (WRVU 3.26) 07/27/2024 8:00 AM EST TH Visit (TeleHealth) [place] [address] Unruly Ramirez MD [facility] [place] [address] 08/03/2024 3:00 PM EST Office Visit Neurology at [address] [address] Melvin Ramírez MD [facility] [place] [address] 08/25/2024 1:45 PM EDT Office [place] [address] Keven Church MD [facility] [place] [address] Scheduled Procedures Name Priority Associated Diagnoses Date/Ti me COLONOSCOPY, DIAGNOSTIC (WRV U 3.26) Hematochezia 06/30/2024 9:45 AM EST documented as of this encounter Procedures Procedure Name Priority Date/Time Associated Diagnosis Comments FILM LIBRARY STORAGE ONLY CT ABDOMEN AND PELVIS Routine 02/02/2017 12:00 AM EDT Pain documented in this encounter Results * Film Library- Storage Only CT Abdomen & Pelvis (02/02/2017 12:00 AM EDT) Narrative [facility] - 02/05/2017 11:48 AM EDT This exam is for storage only and is auto-finalizing. Kelle Rosas APRN IMG FILM LIBRARY ORD ERABLES [place], [place] documented in this encounter Visit Diagnoses Diagnosis Pain Generalized pain Hematochezia Blood in stool documented in this encounter Care Teams Aerospace Medicine Physician Relationship Specialty Start Date End Date Keith Ruiz MD PCP - General 05/12/11 12/26/19 documented as of this encounter
--- OUTSIDE RECORDS SUMMARY | 2024-06-23 18:24 | XMS_ITS | Encounter Summary ---
[place] [address] Care Team Providers Care Parts Analyst Name Role Phone Keith Ruiz MD Primary Care Provider Unavailab le Encounter Details Date Type Department Care Team (Late st Contact Info) Description 01/20/2017 Telephone [place] [address] Francesca Lundberg, RN Social History Tobacco Use Types Packs/Day [...] encounter Miscellaneous Notes * Telephone Encounter - Francesca Lundberg, RN - 01/20/2017 9:03 AM EDT Notified by Kelle Rosas APRN that patients ultrasound was abnormal. Per Kelle, Small to moderate pericardial effusion. Not sure why these findings, but needs PCP tomanage. This fiction writer called PCP, Keith Ruiz MD, office and spoke with Promise the nurse. This fiction writer faxed the ultrasound report to PCP's office attention Promise. Called patient to make her aware of the above. Patient is aware that 's office will be contacting her. documented in this encounter Plan of Treatment Upcoming Encounters Date Type Department Care Team (Latest Contact Info) Description 06/30/2024 9:45 AM EST Hospital En[place] [phone] Flor Velasco MD [facility] [place] [address] 06/30/2024 9:45 AM EST - 06/30/2024 10:45 AM EST Surgery Gastroenterology at [place] [phone] Flor Velasco MD [facility] [place] [address] COLONOSCOPY, DIAGNOSTIC (WRVU 3.26) 07/27/2024 8:00 AM EST TH Visit (TeleHealth) [place] [address] Unruly Ramirez MD [facility] [place] [address] 08/03/2024 3:00 PM EST Office Visit Neurology at [address] [phone] Melvin Ramírez MD [facility] [address] [place] [address] 08/25/2024 1:45 PM EDT Office [place] [address] Keven Church MD [facility] [place] [address] Scheduled Procedures Name Priority Associated Diagnoses Date/Ti me COLONOSCOPY, DIAGNOSTIC (WRV U 3.26) Hematochezia 06/30/2024 9:45 AM EST documented as of this encounter Visit Diagnoses Not on filedocumented in this encounter Care Teams Parts Analyst Relationship Specialty Start Date End Date Keith Ruiz MD PCP - General 05/12/11 12/26/19 documented as of this encounter
--- OUTSIDE RECORDS SUMMARY | 2024-06-23 18:24 | XMS_ITS | Encounter Summary ---
Author Organization [facility] Address [address] [place] [address] Care Team Providers Care Valet Manager Name Role Phone Chaim Will MD Primary Care Provider [phone] Encounter Details Date Type Department Care Team (Late st Contact Info) Description 08/17/2018 Results Only Imaging [facility] - [address] [place] [address] Campos Alan MD Social History Tobacco Use Types Packs/Day [...] Priority Date/Time Associated Diagnosis Comments ECHOCARDIOGRAM LIMITED 9 9:26 EDT documented in this encounter Results * ECHOCARDIOGRAM LIMITED (08/17/2018 9:26 EDT) Anatomical Region Laterality Modality Other 08/17/2018 9:26 EDT Narrative 08/17/2018 10:24 EDT *Interpreting Group:* *[facility]* [address] [place] [address] Date of study: 08/17/2018 Transthoracic Echocardiography M-mode, limited 2D, limited spectral [...] normal. Systolic function was ?? normal. 3. Pericardium, extracardiac: A small, , free-flowing pericardial ?? effusion was identified. Respirophasic change in stroke volume was ?? normal. *PATIENT PRESENTATION* Height: ? 157.5cm ((62in) ) S/D Pressure: 122 / 65 Weight: ? 45.8kg ((100.8lb) ) BSA: ?1.41m^2 Test start time: ??09:30 AM. Test stop time: ??10:00 AM. ATTENDING ?Campos Alan MD ORDERING ? Campos Alan MD REFERRING ?Keith Ruiz PERFORMING ?? [facility], Op HEALTH CARE AIDE ??Shay Branham *PROCEDURE DATA* Procedure information: ??The patient was identified by two identifiers. This study was interpreted by [facility]. Pertinent images and digital data are archived for permanent storage and are available for subsequent review. ??Study status: Routine. Transthoracic echocardiography. ??M-mode, limited 2D, limited spectral Doppler, and color Doppler. A Transthoracic Echocardiogram was performed. The parasternal window was low, thus no M-mode measurements were recorded. Scanning was performed from the parasternal, apical, and subcostal acoustic windows. Images were obtained using an Strap 12 cardiac ultrasound machine. Image quality was poor. The study was technically limited due to poor acoustic window availability and body habitus. ??Study completion: ??The patient tolerated the procedure well. *INDICATIONS AND HISTORY* Indications: ??I31.3 Pericardial Effusion *CARDIAC ANATOMY* Left ventricle: ??The cavity size was normal. Wall thickness was normal. Systolic function was hyperdynamic. The estimated ejection fraction was 65-70%. Wall motion was normal; there were no regional wall motion abnormalities. Right ventricle: ??The cavity size was normal. Systolic function was normal. Pericardium: ??A small, , free-flowing pericardial effusion was identified. ??Doppler: ??Respirophasic change in stroke volume was normal. Systemic veins: Inferior vena cava: The vessel was normal in size. Measurements LVOT ? Value ?Reference LVOT ID, S ? 1.9 ?? cm ? --------- LVOT area ?2.8 ?? cm^2 ?? --------- Left atrium ?Value ?Reference LA ID, A-P, ES ? 2.0 ?? cm ? --------- LA ID/bsa, A-P ? 1.4 ?? cm/m^2 <=2.2 Legend: (L) ??and ??(H) ??jennifer values outside specified reference range. I have personally reviewed the images and have reviewed and edited the reported findings. Electronically signed by Homero Gonzales MD 08/17/2018 10:24 Procedure Note Homero Gonzales MD, MD - 08/17/2018 *Interpreting Group:* *[facility]* [address] [id number] Date of study: 08/17/2018 Transthoracic Echocardiography M-mode, limited 2D, limited spectral [...] PRESENTATION* Height: 157.5cm ((62in) ) S/D Pressure: 122 / 65 Weight: 45.8kg ((100.8lb) ) BSA: 1.41m^2 Test start time: 09:30 AM. Test stop time: 10:00 AM. ATTENDING Campos Alan MD ORDERING Campos Alan MD REFERRING Keith Ruiz [facility], Op HEALTH CARE AIDE Shay Branham *PROCEDURE DATA* Procedure information: The patient was identified by two identifiers. This study was interpreted by [facility]. Pertinent images and digital data are archived for permanent storage and are available for subsequent review. Study status: Routine. Transthoracic echocardiography. M-mode, limited 2D, limited spectral Doppler, and color Doppler. A Transthoracic Echocardiogram was performed. The parasternal window was low, thus no M-mode measurements were recorded. Scanning was performed from the parasternal, apical, and subcostal acoustic windows. Images were obtained using an GiveLoopq 12 cardiac ultrasound machine. Image quality was poor. The study was technically limited due to poor acoustic window availability and body habitus. Study completion: The patient tolerated the procedure well. *INDICATIONS AND HISTORY* Indications: I31.3 Pericardial Effusion *CARDIAC ANATOMY* Left ventricle: The cavity size was normal. Wall thickness was normal. Systolic function was hyperdynamic. The estimated ejection fraction was 65-70%. Wall motion was normal; there were no regional wall motion abnormalities. Right ventricle: The cavity size was normal. Systolic function was normal. Pericardium: A small, , free-flowing pericardial effusion was identified. Doppler: Respirophasic change in stroke volume was normal. Systemic veins: Inferior vena cava: The vessel was normal in size. Measurements LVOT Value Reference LVOT ID, S 1.9 cm --------- LVOT area 2.8 cm^2 --------- Left atrium Value Reference LA ID, A-P, ES 2.0 cm --------- LA ID/bsa, A-P 1.4 cm/m^2 <=2.2 Legend: (L) and (H) jennifer values outside specified reference range. I have personally reviewed the images and have reviewed and edited the reported findings. Electronically signed by Homero Gonzales MD 08/17/2018 10:24 us Campos Alan MD CARDIAC ECHO ORDERABLE S Final Result documented in this encounter Visit Diagnoses Not on filedocumented in this encounter Care Teams Valet Manager Relationship Specialty Start Date End Date Chaim Will MD PCP - General 06/14/18 05/10/19 documented as of this encounter
--- OUTSIDE RECORDS SUMMARY | 2024-06-23 18:24 | XMS_ITS | Encounter Summary ---
Author Organization [facility] Address [address] [place] [address] Care Team Providers Care Axle Polisher Name Role Phone Keith Ruiz MD Primary Care Provider [phone] Reason for Visit * Reason Comments Cardiac Testing * Cardiology (Routine) - Closed Specialty Diagnoses / Procedures Referred By Contac t Referred To Contact Diagnoses Pericardial effusion Procedures ECHOCARDIOGRAM LIMITED Campos Alan MD Referral ID Status Reason Start Date Expiration Date Visits Re quested Visits Authorized [id number] Closed 06/08/2017 1 1 Encounter Details Date Type Department Care Team (Late st Contact Info) Description 06/09/2017 8:15 EST Procedure visit [facility] Cardiology [place] [address] [place] [address] Campos Alan MD EchoRabia Social History Tobacco Use Types Packs/Day Years Used Date Smoking Tobacco: Never Smokeless Tobacco: Never Comments Unknown Sex and Gender Information Value Date Recorded Sex Assigned at Not on file Legal Sex Female 18:01 EST Gender Identity Not on file Sexual Orientation Not on file documented as of this encounter Plan of Treatment Not on file documented as of this encounter Visit Diagnoses Not on filedocumented in this encounter Care Teams Axle Polisher Relationship Specialty Start Date End Date Keith Ruiz MD [address] [place] [phone] PCP - General 03/10/17 06/13/18 documented as of this encounter
--- OUTSIDE RECORDS SUMMARY | 2024-06-23 18:24 | XMS_ITS | Encounter Summary ---
Author Organization [facility] Address [address] [place] [address] Care Team Providers Care Brand Director Name Role Phone Keith Ruiz MD Primary Care Provider [phone] Reason for Visit * Reason Onset Date Comments Other 06/16/2017 PT CALLING/ BELGICA ELLINGTON HER SCRIPT FOR AMITRIPTYLINE MAY BE WRITTEN INCORRECTLY/ ASKING FOR CALL BACK Returning Call 06/16/2017 Encounter Details Date Type Department Care Team (Latest Contact Info) Description 06/16/2017 Telephone [facility] Gastroenterology - [facility] [address] [place] [address] John Montes MD Other (PT CALLING/ BELIEVES HER SCRIPT FOR AMITRIPTYLINE MAY BE WRITTEN INCORRECTLY/ ASKING FOR CALL BACK); Returning Call Social History Tobacco Use Types Packs/Day Years Used Date Smoking Tobacco: Never Smokeless Tobacco: Never Comments Unknown Sex and Gender Information Value Date Recorded Sex Assigned at Not on file Legal Sex Female 18:01 EST Gender Identity Not on file Sexual Orientation Not on file documented as of this encounter Ordered Prescriptions Prescription Sig Dispense Quantity Refills Last Filled Start Date End Date amitriptyline (ELAVIL) 25 mg tablet Take 3 tabs at bedtime, taper as directed 30 Tab 06/16/2017 documented in this encounter Miscellaneous Notes * Telephone Encounter - Cassidy Carr RN - 06/16/2017 1056 EST The patient called to report the quantity of amitriptyline script from was for #30 tabs,she has run out ( taking 3 tabs at HS) and is unable to refill per her pharmacy. Per , he will authorize 30 more tabs ,but urges the patient to follow up with her PCP, Dr.John Ruiz for further prescriptions ( see Prism note). Karolina verbalized understanding and will contact her PCP as advised . documented in this encounter Plan of Treatment Not on file documented as of this encounter Visit Diagnoses Not on filedocumented in this encounter Discontinued Medications Medication Sig Discontinue Reason Start Date End Da te amitriptyline (ELAVIL) 25 mg tabletIndications:Slow transit constipation,Celiac disease Take 3 Tabs by mouth at bedtime. 05/05/2017 06/16/2017 documented as of this encounter Care Teams Brand Director Relationship Specialty Start Date End Date Keith Ruiz MD [address] [facility] [place] [id number] PCP - General 03/10/17 06/13/18 documented as of this encounter
--- OUTSIDE RECORDS SUMMARY | 2024-06-23 18:24 | XMS_ITS | Encounter Summary ---
[place] [address] Care Team Providers Care Java Analyst Name Role Phone Keith Ruiz MD Primary Care Provider Unavailab le Encounter Details Date Type Department Care Team (Late st Contact Info) Description 01/18/2017 Telephone [place] [address] Tejinder Rea RN Social History Tobacco Use Types Packs/Day [...] encounter Miscellaneous Notes * Telephone Encounter - Tejinder Rea RN - 01/18/2017 12:24 PM EDT Spoke to patient and relayed rationale for change in testing. Patient rescheduled for U/S tomorrow. No questions or concerns at this time. * Addendum Note - Teijnder Rea RN - 01/18/2017 12:17 PM EDTAddended by: TEJINDER REA on: 01/18/2017 12:17 PM Modules accepted: Orders * Telephone Encounter - Tejinder Rea RN - 01/18/2017 11:02 AM EDT Received call from Dr. Gatito Varghese in radiology. Would like to discuss indication for ordered upper GI series with SBFT scheduled for tomorrow. Advised Amauri Rosas out of office for 2 weeks. Indication is RUQ pain. ? Twisting or blockage. Dr. Varghese suggest U/S and/or CT with contrast to minimize radiation exposure given this indication. Discussed by phone with Amauri Rosas APRN. Per Amauri reasonable to proceed with ultrasound first then do CT with contrast if unrevealing. Left message for patient advising her of change in planned testing. documented in this encounter Plan of Treatment Upcoming Encounters Date Type Department Care Team (Latest Contact Info) Description 06/30/2024 9:45 AM EST Hospital Encounter [place] [address] [facility] [place] [address] 06/30/2024 9:45 AM EST - 06/30/2024 10:45 AM EST Surgery [place] [address] [facility] [place] [address] COLONOSCOPY, DIAGNOSTIC (WRVU 3.26) 07/27/2024 8:00 AM EST TH Visit (TeleHealth) [place] [address] [facility] [place] [address] 08/03/2024 3:00 PM EST Office Visit Neurology at [facility] [address] [place] [address] Melvin Ramírez MD [facility] [place] [place] [address] 08/25/2024 1:45 PM EDT Office [place] [address] [facility] [place] [address] Scheduled Procedures Name Priority Associated Diagnoses Date/Ti me COLONOSCOPY, DIAGNOSTIC (WRV U 3.26) Hematochezia 06/30/2024 9:45 AM EST documented as of this encounter Results * (ABNORMAL) US Abdomen [...] 11:48 am) PATIENT INFO: ID #: ? [id number] ?: ??[birth year] (41 yrs) Name: ? JOE Mcintyre ? Visit Date: 01/19/2017 10:20 am ? MAURICE PERFORMED BY: Performed By: ? Rosa ARZOLA, ??Katie Attending: ?Jaymie WADE, Chip Shepard Resident: ? Mayra RICHARDSON, Nora Ashford Referred By: ?AMAURI ThaoKATIE Location: ? [place] SERVICE(S) PROVIDED: ??UABDLIM - Abdominal Limited Survey Single ? [id number] ??Organ or Quadrant - [id number] INDICATIONS: ??RUQ pain COMPARISON: Prior CT: 10/21/2015 [...] Pericardial effusion. Resulting Agency Comment Unexpected Finding Amauri Rosas APRN IMG GEN ORDERABLE S documented in this encounter Visit Diagnoses Diagnosis RUQ abdominal pain Abdominal pain, right upper quadrant RUQ abdominal pain Abdominal pain, right upper quadrant Hematochezia Blood in stool documented in this encounter Care Teams Java Analyst Relationship Specialty Start Date End Date Keith Ruiz MD PCP - General 05/12/11 12/26/19 documented as of this encounter
--- OUTSIDE RECORDS SUMMARY | 2024-06-23 18:24 | XMS_ITS | Encounter Summary ---
Author Organization [facility] [place] [address] Care Team Providers Care Fish Cutter Name Role Phone Keith Ruiz MD Primary Care Provider Unavailab le Encounter Details Date Type Department Care Team (Late st Contact Info) Description 01/13/2017 Orders [place] [address] Kelle Rosas APRN [facility] DR [place]STRO[place] [address] Upper abdominal pain Social History Tobacco Use Types [...] as of this encounter Progress Notes * Tejinder Rea RN - 01/13/2017 10:10 PM EDT Order for upper GI series with SBFT cancelled and abdo U/S ordered instead after discussion with radiologist. documented in this encounter Plan of Treatment Upcoming Encounters Date Type Department Care Team (Latest Contact Info) Description 06/30/2024 9:45 AM EST Hospital Encounter [place] [phone] Flor Velasco MD [facility] [place] [address] 06/30/2024 9:45 AM EST - 06/30/2024 10:45 AM EST Surgery [place] [phone] Flor Velasco MD [facility] [place] [address] COLONOSCOPY, DIAGNOSTIC (WRVU 3.26) 07/27/2024 8:00 AM EST TH Visit (TeleHealth) [place] [address] Unruly Ramirez MD [facility] [place] [address] 08/03/2024 3:00 PM EST Office Visit Neurology at [address] [phone] Melvin Ramírez MD [facility] [place] [address] 08/25/2024 1:45 PM EDT Office [place] [phone] Keven Church MD [facility] [place] [address] Scheduled Procedures Name Priority Associated Diagnoses Date/Ti me COLONOSCOPY, DIAGNOSTIC (WRV U 3.26) Hematochezia 06/30/2024 9:45 AM EST documented as of this encounter Visit Diagnoses Diagnosis Upper abdominal pain Abdominal pain, other specified site Hematochezia Blood in stool documented in this encounter Care Teams Fish Cutter Relationship Specialty Start Date End Date Keith Ruiz MD PCP - General 05/12/11 12/26/19 documented as of this encounter
--- OUTSIDE RECORDS SUMMARY | 2024-06-23 18:24 | XMS_ITS | Encounter Summary ---
Author Organization [facility] [address] [place] [address] Care Team Providers Care Installation Manager Name Role Phone Keith Ruiz MD Primary Care Provider Unavailab le Reason for Visit * Consultation (Routine) - Closed Specialty Diagnoses / Procedures Referred By Mikaela costa Referred To Contact Gastroenterology Diagnoses Other constipation Kelle Duran APRN [facility] [place] [address] [facility] [address] [place] [address] Referral ID Status Reason Start Date Expiration Date V isits Requested Visits Authorized [id number] Closed Consult, Test & Treat 10/24/2015 10/23/2016 1 1 Encounter Details Date Type Department Care Team (Late st Contact Info) Description 11/27/2015 11:00 AM EDT Clinical Support [place] [address] [facility] [place] [address] Other constipation; Celiac disease Social History Tobacco Use Types [...] Sign Reading Time Taken Comments Blood Pressure 110/66 11/27/2015 10:48 AM EDT Pulse 105 11/27/2015 10:48 AM EDT Temperature - - Respiratory Rate - - Oxygen Saturation - - Inhaled Oxygen Concentration - - Weight 48.3 kg (106 lb 6.4 oz) 11/27/2015 10:48 AM EDT Height 157.5 cm (5' 2) 11/27/2015 10:48 AM EDT Body Mass Index 19.46 11/27/2015 10:48 AM EDT documented in this encounter Progress Notes * Divya Jean Baptiste, VIKTORIA - 11/27/2015 11:12 AM EDT Nutrition Seeing patient for history of constipation and celiac disease Wt Readings from Last 5 Encounters: 11/27/15 48.3 kg (106 lb 6.4 oz) 10/24/15 49 kg (108 lb) Ht Readings from Last 5 Encounters: 11/27/15 157.5 cm (5' 2) 10/24/15 157.5 cm (5' 2) Body mass index is 19.46 kg/(m^2). Meds: Ambien and Elavil Diet Recall: Rice cakes, yogurt, fruit, salads, hamburger no bun, chicken, smoothie (josé miguel, banana,strawberry, milk) 1 perday By the end of the day stomach hurts Last BM was Wednesday, had gone 8 days. Magnesium citrate--gave watery diarrhea Fluids intake: Was drink a lot of water (24 ounce bottle) Evaluation: I am seeing Karolina today to discuss celiac disease and chronic constipation (history of IBS-C). Was tested positive for celiac disease by PCP. She has been on a gluten free diet for thelast 2.5 months. She has been having issues with constipation since February of last year when she had her hysterectomy. Constipation really interferes with her quality of life, causes pain and much discomfort and it seems she has not found a bowel regimen that works. She states she has tried miralax, xlax, dulcolax, suppositories, colace, all with no relief. She recently went on 8 day stretch of no BM and was taking 2 rashad-colace per day with no effect, however, she got results when she increased it to the maximum dose of 4. We discussed that if this worked for her, she should take this dailyand get on a BM schedule, even if it's every 2 days. She's concerned about the dose, however, checked with CORRUGATOR OPERATOR, who verified that it's safe and the benefit would greatly outweigh the risks given her significant issue with constipation. Also, increasing her fluid intake, I think will help a lot. She will also try to get on a regular physical acitvity routine (walking). Lastly, we reviewed her new diagnosis of celiac, went over permanent avoidance of gluten in foods (gave her detailed list). Because she is a new diagnosis, we should check iron, B12, folate. TTG level in 3-4 months. Will communicate this to PCP. Recommendations/Plan: 1. Increase fluid by 18 oz per day to get to goal of at least 64 ounces per day of fluid (8 cups) 2. Take 4 rashad-colace per day for contstiaption--checked with Kelle Duran this is a safe daily dose (per instructions on med box) for her chronic constipation 3. Slowly increase intake of insoluble fiber--gave examples today 4. Try smooth move tea 5. Will call in 1 week 6. Gave more detailed gluten containing ingredients list for her diagnosis of celiac disease 7. Will contact PCP regarding checking iron levels, vitamin B12, and folate with new diagnosis of celiac documented in this encounter Plan of Treatment Upcoming Encounters Date Type Department Care Team (Latest Contact Info) Description 06/30/2024 9:45 AM EST Hospital Encounter [place] [address] Flor Velasco MD [facility] [place] [address] 06/30/2024 9:45 AM EST - 06/30/2024 10:45 AM EST Surgery Gastroenterology at [place] [phone] Flor Velasco MD [facility] [place] [address] COLONOSCOPY, DIAGNOSTIC (WRVU 3.26) 07/27/2024 8:00 AM EST TH Visit (TeleHealth) Gastroenterology at [place] [phone] Unruly Ramirez MD [facility] [place] [address] 08/03/2024 3:00 PM EST Office Visit Neurology at [address] [phone] Melvin Ramírez MD [facility] [place] [address] 08/25/2024 1:45 PM EDT Office Visit Rheumatology at [place] [phone] Keven Church MD [facility] [address] Scheduled Procedures Name Priority Associated Diagnoses Date/Ti tn COLONOSCOPY, DIAGNOSTIC (WRV U 3.26) Hematochezia 06/30/2024 9:45 AM EST Scheduled Referrals Name Type Priority Associated Diagnoses Order Schedule Referral to Gastroenterology Outpatient Referral Routine Other constipation Ordered: 10/24/2015 documented as of this encounter Visit Diagnoses Diagnosis Other constipation Celiac disease Hematochezia Blood in stool documented in this encounter Care Teams Installation Manager Relationship Specialty Start Date End Date Keith Ruiz MD PCP - General 05/12/11 12/26/19 documented as of this encounter
--- OUTSIDE RECORDS SUMMARY | 2024-06-23 18:24 | XMS_ITS | Encounter Summary ---
Author Organization [facility] Address [address] [place] [address] Care Team Providers Care Soaker Soda Worker Name Role Phone Keith Ruiz MD Primary Care Provider [phone] Reason for Visit * Reason Onset Date Comments Results 06/10/2017 CRP (normal) Encounter Details Date Type Department Care Team (Late st Contact Info) Description 06/10/2017 Telephone [facility] Cardiac Rehabilitation - [address] [place], [place] [phone] Cristina Infante, RN [address] [place] [address] Results (CRP (normal)) Social History Tobacco Use Types Packs/Day Years Used Date Smoking Tobacco: Never Smokeless Tobacco: Never Comments Unknown Sex and Gender Information Value Date Recorded Sex Assigned at Not on file Legal Sex Female 18:01 EST Gender Identity Not on file Sexual Orientation Not on file documented as of this encounter Miscellaneous Notes * Telephone Encounter - Cristina Infante RN - 06/10/2017 1133 EST Called Karolina to let her know that per Dr. Cruz her CPR was normal and nothing to be done forher pericardila effusion other than an echo in one year. Patient thanked me for the results and no barriers to learning were identified. * Telephone Encounter - Cristian Infante RN - 06/10/2017 9748 EST ----- Message from Campos Cruz MD sent at 06/09/2017 15:27 EST ----- Cristina, Can you let her know that her CRP was low (normal), so nothing to be done for her pericardial effusion other than echo in one year. ML ----- Message ----- From: Blaine, Lab Results In One Sent: 06/09/2017 14:04 To: Campos Cruz MD documented in this encounter Plan of Treatment Not on file documented as of this encounter Visit Diagnoses Not on filedocumented in this encounter Care Teams Soaker Soda Worker Relationship Specialty Start Date End Date Keith Ruiz MD [address] [place] [phone] PCP - General 03/10/17 06/13/18 documented as of this encounter
--- OUTSIDE RECORDS SUMMARY | 2024-06-23 18:24 | XMS_ITS | Encounter Summary ---
Author Organization [facility] Address [address] [place] [address] Care Team Providers Care Room Attendant Name Role Phone Keith Ruiz MD Primary Care Provider Reason for Visit * Reason Onset Date Comments Appointment Related 01/24/2018 Encounter Details Date Type Department Care Team (Late st Contact Info) Description 01/24/2018 Telephone [facility] Pelvic Medicine and Reconstructive Surgery - Medical Office [facility] [address] [place] [address] Becki Montana, MONI Appointment Related Social History Tobacco Use Types Packs/Day Years Used Date Smoking Tobacco: Never Smokeless Tobacco: Never Comments Unknown Sex and Gender Information Value Date Recorded Sex Assigned at Not on file Legal Sex Female 18:01 EST Gender Identity Not on file Sexual Orientation Not on file documented as of this encounter Miscellaneous Notes * Telephone Encounter - Elzbieta Montana RN - 01/24/2018 5517 EDT Pt LM stating she has an appt with Dr Pimentel 02/14. She is wanting to know if the appt is necessary. I advised her that she was referred here by her GI MD and it is up to her and the GI MD as to whether this appt can wait. Per Dr Pimentel this pt was changed from a NPT visit to manometry with a NPT visit. I advised Melidathit would probably not be beneficial for her just to see Dr Pimentel without having the manometry. She is stating that she has too many medical bills at this time to proceed with this testing and is wanting to reschedule in May documented in this encounter Plan of Treatment Not on file documented as of this encounter Visit Diagnoses Not on filedocumented in this encounter Care Teams Room Attendant Relationship Specialty Start Date End Date Keith Ruiz MD [address] [place] [address] PCP - General 03/10/17 06/13/18 documented as of this encounter
--- OUTSIDE RECORDS SUMMARY | 2024-06-23 18:24 | XMS_ITS | Encounter Summary ---
Author Organization [facility] Address [address] [place] [address] Care Team Providers Care Financial Planner Name Role Phone Chaim Will MD Primary Care Provider [phone] Reason for Visit * Reason Comments Cardiac Testing * Cardiology (STAT) - Closed Specialty Diagnoses / Procedures [facility] Referred To Contact Diagnoses Pericardial effusion Procedures ECHOCARDIOGRAM LIMITED Campos Alan MD Referral ID Status Reason Start Date Expiration Date Visits Re quested Visits Authorized [id number] Closed 06/15/2018 1 1 Encounter Details Date Type Department Care Team (Latest Contact Info) Description 08/17/2018 9:15 EDT Procedure visit [facility] Cardiology - Rabia [address] [place], [place] [phone] Campos Alan MD Echo, Rabia Discharge Disposition: Auto Discharge Social History Tobacco [...] 08/17/2018 10:31 EDT documented in this encounter Discharge Diagnoses Diagnosis I31.3 Pericardial effusion (noninflammatory)-I31.3[ICD-10-CM] documented in this encounter Discharge Disposition Disposition Code Departure Means Destination Auto Discharge documented in this encounter Plan of Treatment Not on file documented as of this encounter Visit Diagnoses Not on filedocumented in this encounter Care Teams Financial Planner Relationship Specialty Start Date End Date Chaim Will MD PCP - General 06/14/18 05/10/19 documented as of this encounter
--- OUTSIDE RECORDS SUMMARY | 2024-06-23 18:24 | XMS_ITS | Encounter Summary ---
Author Organization [facility] [place] [address] Care Team Providers Care Memory Care Director Name Role Phone Keith Ruiz MD Primary Care Provider Unavailab le Reason for Visit * Reason Comments Follow-up Encounter Details Date Type Department Care Team (Late st Contact Info) Description 09/02/2016 1:00 PM EDT Office [place] [address] Kelle Rosas APRN [facility] [place] [address] Irritable bowel syndrome with constipation Social History Tobacco Use Types Packs/Day [...] Sign Reading Time Taken Comments Blood Pressure 123/65 09/02/2016 12:50 PM EDT Pulse 91 09/02/2016 12:50 PM EDT Temperature - - Respiratory Rate - - Oxygen Saturation - - Inhaled Oxygen Concentration - - Weight 50.5 kg (111 lb 6.4 oz) 09/02/2016 12:50 PM EDT Height 157.5 cm (5' 2) 09/02/2016 12:50 PM EDT Body Mass Index 20.38 09/02/2016 12:50 PM EDT documented in this encounter Progress Notes * Kelle Rosas RN - 09/02/2016 1:00 PM EDT _25___minutes of this_30___-minute visit were spent in face to face discussion and/or counseling the patient, regarding symptoms and treatment options as detailed below. Pt is here for f/u regarding progress with medical regimen. Egd: Z-line was regular and was found 36 cm from the ?incisors. ?The entire examined stomach was normal. ?The examined duodenum was normal. Biopsies for ?histology were taken with a cold forceps for for ?evaluation of celiac disease. ? Impression: ?- Z-line regular, 36 cm from the?incisors. ?- Normal stomach. ?- Normal examined duodenum. Biopsied. ?-No peristalsis noted in stomach or ?duodenum during exam ?-Patulous GEJ Recommendation: ?- Await pathology results. [place]: The perianal and digital rectal examinations were ?normal. ?The terminal ileum appeared normal. ?A diffuse area of granular mucosa??was found in the ?cecum. Biopsies were taken with a cold forceps for ?histology. ?A patchy area of mildly erythematous mucosa was found ?in the rectum. This was biopsied with a cold forceps ?for histology. ? Impression: ?- The examined portion of the ileum ?was normal. ?- Granularity in the cecum. Biopsied. ?- Erythematous mucosa in the rectum. ?Biopsied. Recommendation: ?- Discharge patient to home. Bx: Duodenum, ??biopsy: - Duodenal mucosa within normal limits. Pt was gluten free at time of bx. B - Cecum, ??biopsy: - Colonic mucosa with melanosis coli. C - Rectum, ??biopsy: - ??Rectal mucosa within normal limits Celiac disease. Gluten free diet. If she avoids gluten her constipation improves. 95% of the constipation is due to gluten and diet. She still has to take 2-3 pericolace qhs. Stool qod or every two days. No straining. No blood in stool. But when she empties it is an all day event. Did not obtain amitiza due to cost, $300. linzess not covered as well. If she has gluten will go weeks without a bowel movement and then it will take several laxatives toaddress the constipation. No significant gas or bloating. Weight gain. Met with GI physics tutor last year. No change in appetite. No heartburn. No dysphagia, odynophagia, n/v, chest pain, ent concerns. Early satiety. Post-prandial fullness. No chronic nsaids. Hx of anemia. Pt had lab work done at pcp. Will obtain. Plan: 1. IBS-C: dulcolax 1-4 qhs. D/c pericolace. Low fodmap diet. Kefir. 2. We agreed pt would notify through my regarding progress. documented in this encounter Plan of Treatment Upcoming Encounters Date Type Department Care Team (Latest Contact Info) Description 06/30/2024 9:45 AM EST Hospital Encounter [place] [address] Flor Velasco MD [facility] [place] [address] 06/30/2024 9:45 AM EST - 06/30/2024 10:45 AM EST [place] [address] Flor Velasco MD [facility] [place] [address] COLONOSCOPY, DIAGNOSTIC (WRVU 3.26) 07/27/2024 8:00 AM EST TH Visit (TeleHealth) [place] [address] Unruly Ramirez MD [facility] [place] [address] 08/03/2024 3:00 PM EST Office Visit Neurology at [address] [phone] Melvin Ramírez MD [facility] [place] [address] 08/25/2024 1:45 PM EDT Office [place] [address] Keven Church MD [facility] [place] [address] Scheduled Procedures Name Priority Associated Diagnoses Date/Ti me COLONOSCOPY, DIAGNOSTIC (WRV U 3.26) Hematochezia 06/30/2024 9:45 AM EST documented as of this encounter Visit Diagnoses Diagnosis Irritable bowel syndrome with constipation Irritable bowel syndrome Hematochezia Blood in stool documented in this encounter Care Teams Memory Care Director Relationship Specialty Start Date End Date Keith Ruiz MD PCP - General 05/12/11 12/26/19 documented as of this encounter
--- OUTSIDE RECORDS SUMMARY | 2024-06-23 18:24 | XMS_ITS | Encounter Summary ---
Author Organization [facility] Address [address] [place] [address] Care Team Providers Care River Driver Name Role Phone Keith Ruiz MD Primary Care Provider [phone] Reason for Visit * Reason Onset Date Comments Pre-visit Planning 05/28/2017 Encounter Details Date Type Department Care Team (Late st Contact Info) Description 05/28/2017 Telephone [facility] Cardiology - [address] [place], [place] [phone] Campos Alan MD Pre-visit Planning Social History Tobacco Use Types Packs/Day Years Used Date Smoking Tobacco: Never Smokeless Tobacco: Never Comments Unknown Sex and Gender Information Value Date Recorded Sex Assigned at Not on file Legal Sex Female 18:01 EST Gender Identity Not on file Sexual Orientation Not on file documented as of this encounter Miscellaneous Notes * Telephone Encounter - Volodymyr Robin - 05/28/2017 0957 EST Sent fax to [facility] Records requesting information. Per Dr. Goss's referral note, the pericardial effusion was noted at this medical center. documented in this encounter Plan of Treatment Not on file documented as of this encounter Visit Diagnoses Not on filedocumented in this encounter Care Teams River Driver Relationship Specialty Start Date End Date Keith Ruiz MD [address] [facility] [place] [phone] PCP - General 03/10/17 06/13/18 documented as of this encounter
--- OUTSIDE RECORDS SUMMARY | 2024-06-23 18:24 | XMS_ITS | Encounter Summary ---
[place] [address] Care Team Providers Care Mattress Spring Encaser Name Role Phone Keith Ruiz MD Primary Care Provider Unavailab le Reason for Referral * Consultation (Routine) - Closed Specialty Diagnoses / Procedures Referred By Mikaela t Referred To Contact Gastroenterology Diagnoses Other constipation Kelle Rosas ICE SELLER [facility] [place] [address] [address] Referral ID Status Reason Start Date Expiration Date V isits Requested Visits Authorized [id number] Closed Consult, Test & Treat 10/24/2015 10/23/2016 1 1 Reason for Visit * Reason Comments GI Problem * Consultation (Routine) - Closed Specialty Diagnoses / Procedures Referred By Contac t Referred To Contact Gastroenterology Diagnoses constipation Procedures consult Ammy Jason APRN [address] [place] [address] [facility] [address] [place] [phone] Referral ID Status Reason Start Date Expiration Date Visits Re quested Visits Authorized [id number] Closed 07/25/2015 07/24/2016 1 1 Encounter Details Date Type Department Care Team (Late st Contact Info) Description 10/24/2015 3:00 PM EDT Office [place] [address] Kelle Rosas APRN [facility] [place] [address] Other constipation; Gastroesophageal reflux disease, esophagitis presence not specified Social History Tobacco Use Types Packs/Day Years Used Date Smoking Tobacco: Never Sex and Gender Information Value Date Recorded Sex Assigned at Female 08/20/2020 6:21 PM EDT Gender Identity Female 08/20/2020 6:21 PM EDT Sexual Orientation Straight 08/20/2020 6: 21 PM EDT documented as of this encounter Last Filed Vital Signs Vital Sign Reading Time Taken Comments Blood Pressure 129/66 10/24/2015 2:44 PM EDT Pulse 98 10/24/2015 2:44 PM EDT Temperature - - Respiratory Rate - - Oxygen Saturation - - Inhaled Oxygen Concentration - - Weight 49 kg (108 lb) 10/24/2015 2:44 PM EDT Height 157.5 cm (5' 2) 10/24/2015 2:44 PM EDT Body Mass Index 19.75 10/24/2015 2:44 PM EDT documented in this encounter Progress Notes * Kelle Rosas RN - 10/24/2015 3:06 PM EDT Section of Gastroenterology and Hepatology [address] [place] [address] .Karolina Richards : 1975 Patient is here for further evaluation of gastrointestinal symptoms at the request of Keith Ruiz MD. HPI: Pt has a 18 month hx of constipation. Worsened after hysterectomy in February 2015. Has gone two weeks without a bowel movement. Usually goes once per week. Mucus in stools. Will take otc senna 4 tablets with relief. Has tried miralax, xlax, dulcolax, suppositories, colace, all with no relief. Bright red blood dripping rectally. Also, can streak the stool. Does not feel empty. Pt went to [facility] yesterday due to sx. Abdominal xray, large quantity of stool in the colon. No obstruction. No fecal seepage. Does not get a daily urge. Experiences urge only if she takes a laxative. Weight is stable. Sx can effect appetite. Intermittent nausea. Intermittent abdominal discomfort, gas, bloat, distention. These sx can improve once she is able to empty. Pt notes she was dx with celiac disease. Had lab work done at [facility] in [facility]. Has been on a gluten free diet for three months. Was on gluten free diet for one month prior to lab work. Will need to obtain lab work. She notes other sx when she eats gluten. She experiences joint pain, rashes. Early satiety. No post-prandial sx. No chronic nsaids. Reviewed diet. Living on rice cakes, smoothies, fruit. Last couple of months has been experiencing intermittent heartburn. Has had few episodes. tums withrelief. No regurgitation. But throat feels hot. No dysphagia, odynophagia, n/v, chest pain, ent concerns. Per pt she had other blood work when they tested for celiac. will need to obtain. History Social History ??? Marital status: Spouse name: N/A ??? Number of children: N/A ??? Years of education: N/A Occupational History ??? Not on file. Social History Main Topics ??? Smoking status: Never Smoker ??? Smokeless tobacco: Not on file ??? Alcohol use: Not on file ??? Drug use: Not on file ??? Sexual activity: Not on file Other Topics Concern ??? Not on file Social History Narrative ??? No narrative on file Medical History: IC; hx of migraines; anemia Surgical History: hysterectomy, C section x 3; tonsillectomy Family History: cousin: colon cancer; dx age 38; grandfather: colon cancer; dx age early 70s. Allergies Allergen Reactions ??? Gluten Nausea And Vomiting, Rash and Other (See Comments) Also stomach aches very bad ??? Codeine Phosphate CIS - Nausea/Vomiting ??? Doxycycline Monohydrate CIS - HANDS GET NUMB Current Outpatient Prescriptions: ??? amitriptyline (ELAVIL) 100 mg Tablet, take 1 tablet by mouth once daily, Disp: , Rfl: 0 ??? zolpidem (AMBIEN) 5 mg Tablet, take 1 tablet by mouth at bedtime if needed 30 DAY SUPPLY, Disp:, Rfl: 0 ??? ibuprofen (ADVIL;MOTRIN) 600 mg tablet, 600mg, PO, Three times daily - PRN, Disp: , Rfl: ??? FLUoxetine (PROZAC) 20 mg capsule, 10MG, PO, Once daily (Patient not taking: No sig reported), Disp: , Rfl: Review of Systems - Negative except General: Cardiac: Resp: GI: see above : MS: Neuro: Skin: Psyche: Sleep: Endo: Physical Exam: soft, non-tender, no mass, organomegaly Impression: 1. Gerd/dyspepsia: schedule upper endoscopy. 2. IBS-C: schedule colonoscopy; obtain labs from [facility]; amitiza 8mcg qd to bid; can increase to a maximum of 24mcg bid. 3. Pelvic floor dysfunction: am routine; relaxation; foot stool or squatty potty. 4. ?celiac: will obtain labs: refer to card cleaner. 5. Gif in 6-8 weeks; f/u with pt once results received. I spent a total of 53 minutes face to face with this patient; 33 minutes were spent counseling the patient in the medical problems described above. Sincerely, Kelle Rosas NP Section of Gastroenterology and Hepatology documented in this encounter Plan of Treatment Upcoming Encounters Date Type Department Care Team (Latest Contact Info) Description 06/30/2024 9:45 AM EST Hospital Encounter [place] [address] Flor Velasco MD [facility] [place] [address] 06/30/2024 9:45 AM EST - 06/30/2024 10:45 AM EST Surgery [place] [phone] Flor Velasco MD [facility] [place] [address] COLONOSCOPY, DIAGNOSTIC (WRVU 3.26) 07/27/2024 8:00 AM EST TH Visit (TeleHealth) Gastroenterology at [place] [phone] Unruly Ramirez MD [facility] [place] [address] 08/03/2024 3:00 PM EST Office Visit Neurology at [address] [phone] Melvin Ramírez MD [facility] [address] 08/25/2024 1:45 PM EDT Office [place] [address] Keven Church MD [facility] [address] Scheduled Orders Name Type Priority Associated Diagnoses Orde r Schedule UPPER GI ENDOSCOPY Procedures Routine Gastroesophageal reflux disease, esophagitis presence not specified Ordered: 10/24/2015 COLONOSCOPY Procedures Routine Other constipation Ordered: 10/24/2015 Scheduled Procedures Name Priority Associated Diagnoses Date/Ti [...] stool documented in this encounter Care Teams Mattress Spring Encaser Relationship Specialty Start Date End Date Keith Ruiz MD PCP - General 05/12/11 12/26/19 documented as of this encounter
--- OUTSIDE RECORDS SUMMARY | 2024-06-23 18:24 | XMS_ITS | Encounter Summary ---
Author Organization [facility] Address [address] [place] [address] Care Team Providers Care Quill Cleaner Name Role Phone Keith Ruiz MD Primary Care Provider [phone] Encounter Details Date Type Department Care Team (Late st Contact Info) Description 04/28/2017 Results Only Imaging [place] [phone] Unknown, Provider, Social History Tobacco Use Types Packs/Day Years Used Date Smoking Tobacco: Never Assessed Comments Unknown Sex and Gender Information Value Date Recorded Sex Assigned at Not on file Legal Sex Female 18:01 EST Gender Identity Not on file Sexual Orientation Not on file documented as of this encounter Plan of Treatment Pending Results Name Type Priority Associated Diagnoses Date /Time OUTSIDE IMAGES - CT BODY Imaging 05/03/2017 11:00 EST OUTSIDE IMAGES - US BODY Imaging 04/28/2017 11:22 EST documented as of this encounter Visit Diagnoses Not on filedocumented in this encounter Care Teams Quill Cleaner Relationship Specialty Start Date End Date Keith Ruiz MD [address] [facility] [place] [address] PCP - General 03/10/17 06/13/18 documented as of this encounter
--- OUTSIDE RECORDS SUMMARY | 2024-06-23 18:24 | XMS_ITS | Encounter Summary ---
Author Organization [facility] [place] [address] Care Team Providers Care Lead Case Manager Name Role Phone Keith Ruiz MD Primary Care Provider Unavail le Encounter Details Date Type Department Care Team (Late st Contact Info) Description 10/21/2015 12:05 AM EDT - 10/21/2015 11:59 PM EDT Hospital Encounter Radiology Library at [facility] [place] [address] [facility] Temporary Pain Discharge Disposition: Home Social History Tobacco Use Types Packs/Day Years Used Date Smoking Tobacco: Never Assessed Sex and Gender Information Value Date Recorded [...] needed 30 DAY SUPPLY 0 09/19/2015 08/14/2020 triamcinolone (KENALOG) 0.1 % Cream apply to affected area twice a day 0 09/04/2015 10/24/2015 ketorolac (TORADOL) 10 mg Tablet take 1 tablet by mouth every 8 hours if needed 0 08/27/2015 10/24/2015 CIS Free Text Med - NORETHIN 1O DAYS Q MONTH 07/13/2006 ibuprofen (ADVIL;MOTRIN) 600 mg tablet 600mg, PO, Three times daily - PRN 07/13/2006 10/02/2020 FLUoxetine (PROZAC) 20 mg capsule 10MG, PO, Once daily 07/13/2006 016 documented as of this encounter Plan of Treatment Upcoming Encounters Date Type Department Care Team (Latest Contact Info) Description 06/30/2024 9:45 AM EST Hospital Encounter [place] [phone] Flor Velasco MD [facility] [place] [address] 06/30/2024 9:45 AM EST - 06/30/2024 10:45 AM EST [place] [phone] Flor Velasco MD [facility] [place] [address] COLONOSCOPY, DIAGNOSTIC (WRVU 3.26) 07/27/2024 8:00 AM EST TH Visit (TeleHealth) [place] [phone] Unruly Ramirez MD [facility] [place] [address] 08/03/2024 3:00 PM EST Office Visit Neurology at [address] [phone] Melvin Ramírez MD [facility] [place] [address] 08/25/2024 1:45 PM EDT Office [place] [phone] Keven Church MD [facility] [address] Scheduled Procedures Name Priority Associated Diagnoses Date/Ti me COLONOSCOPY, DIAGNOSTIC (WRV U 3.26) Hematochezia 06/30/2024 9:45 AM EST documented as of this encounter Procedures Procedure Name Priority Date/Time Associated Diagnosis Comments FILM LIBRARY STORAGE ONLY CT ABDOMEN AND PELVIS Routine 10/21/2015 12:05 AM EDT Pain documented in this encounter Results * Film Library- Storage Only CT Abdomen & Pelvis (10/21/2015 12:05 AM EDT) Narrative [facility] - 10/23/2015 1:53 AM EDT This exam is for storage only and is auto-finalizing. Dr Pillai [facility] FILM LIBRARY ORD ERABLES [place], [place] documented in this encounter Visit Diagnoses Diagnosis Pain Generalized pain Hematochezia Blood in stool documented in this encounter Care Teams Lead Case Manager Relationship Specialty Start Date End Date Keith Ruiz MD PCP - General 05/12/11 12/26/19 documented as of this encounter
--- OUTSIDE RECORDS SUMMARY | 2024-06-23 18:24 | XMS_ITS | Encounter Summary ---
Author Organization [facility] Address [address] [place] [address] Care Team Providers Care Kraft Mill Operator Name Role Phone Keith Ruiz MD Primary Care Provider [phone] Reason for Referral * Consult (Routine) - Closed Specialty Diagnoses / Procedures Referred By Mikaela costa Referred To Contact Cardiology Diagnoses Pericardial effusion John Montes MD [facility] Cardiology [address] [address] Phone: tel: fax: Referral ID Status Reason Start Date Expiration Date V isits Requested Visits Authorized [id number] Closed Specialty Services Required 05/05/2017 1 1 Question Answer Reason for Request: assess fro pericardial effsion noted from [facility] Encounter Details Date Type Department Care Team (Latest Contact Info) Description 05/05/2017 Orders Only [facility] Gastroenterology - Main [place] [address] [place], [place] [address] John Montes MD Pericardial effusion (Primary Dx) Social History Tobacco Use Types [...] Associated Diagnoses Order Schedule AMB CONS/FOLLOW UP CARDIOLOGY Outpatient Referral Routine Pericardial effusion Ordered: 05/05/2017 documented as of this encounter Visit Diagnoses Diagnosis Pericardial effusion- Primary Unspecified disease of pericardium documented in this encounter Care Teams Kraft Mill Operator Relationship Specialty Start Date End Date Keith Ruiz MD [address] [facility] [place] [phone] PCP - General 03/10/17 06/13/18 documented as of this encounter
--- OUTSIDE RECORDS SUMMARY | 2024-06-23 18:24 | XMS_ITS ---
Author [place] [address] Care Team Providers Care Compliance Review Officer Name Role Phone Geraldo Gracia DNP Primary Care Provider [phone] Migraine Status:Enrolled (Active) Start date:01/30/2021 Enrollment date:01/30/2021 Enrollment reason:Enrolled - Currently Fills with Specialty Current support & services provided:Clinical Management, Refill Management Linked medications:galcanezumab-gnlm (Active) Linked problems:Migraine without aura and without status migrainosus, not intractable (Active) Continued Care and Services Coordination
--- OUTSIDE RECORDS SUMMARY | 2024-06-23 18:24 | XMS_ITS | Encounter Summary ---
[place] [address] Care Team Providers Care Farmworkers Name Role Phone Keith Ruiz MD Primary Care Provider Unavailab le Reason for Visit * Reason Onset Date Comments Advice Only 10/25/2015 Encounter Details Date Type Department Care Team (Late st Contact Info) Description 10/25/2015 Telephone [place] [address] Francesca Lundberg RN Advice Only Social History Tobacco Use Types Packs/Day Years Used Date Smoking Tobacco: Never Sex and Gender Information Value Date Recorded Sex Assigned at Female 08/20/2020 6:21 PM EDT Gender Identity Female 08/20/2020 6:21 PM EDT Sexual Orientation Straight 08/20/2020 6: 21 PM EDT documented as of this encounter Miscellaneous Notes * Telephone Encounter - Tejinder Rea, RN - 10/29/2015 11:59 AM EDT Per Kelle Rosas: Will her insurance pay for Linzess? If not, consider pericolace 2-4 qhs. Called patient to discuss. No insurance information on file for patient. Patient states that she has [facility] [place] through her employer, however, she has a high deductible to meet. Advised her that there is co-pay card on [employer], however this will only cover $75 for a 30 dayscript. Options are to get her deductible out of the way so that future fills are more affordable, or to try Nelly-colace. Patient would like to try nelly-colace. Discussed dosing and mechanism of action. No further questions at this time. * Telephone Encounter - Francesca Lundberg RN - 10/25/2015 9:23 AM EDT Patient calls the office stating that she saw Kelle in the office yesterday (10/24/15) Patient states that she was given a prescription for Amitiza and it will cost $300+ out of pocket. Patient wondering if there is an alternative? Forwarding to Kelle Rosas APRN to advise. documented in this encounter Plan of Treatment Upcoming Encounters Date Type Department Care Team (Latest Contact Info) Description 06/30/2024 9:45 AM EST Hospital En[place] [address] [facility] [place] [address] 06/30/2024 9:45 AM EST - 06/30/2024 10:45 AM EST Surgery [place] [address] [facility] [place] [address] COLONOSCOPY, DIAGNOSTIC (WRVU 3.26) 07/27/2024 8:00 AM EST TH Visit (TeleHealth) [place] [address] [facility] [place] [address] 08/03/2024 3:00 PM EST Office Visit Neurology at [place] [address] [place] [address]vin Ramírez MD [facility] [place] [address] 08/25/2024 1:45 PM EDT Office [place] [address] [facility] [place] [address] Scheduled Procedures Name Priority Associated Diagnoses Date/Ti me COLONOSCOPY, DIAGNOSTIC (WRV U 3.26) Hematochezia 06/30/2024 9:45 AM EST documented as of this encounter Visit Diagnoses Not on filedocumented in this encounter Care Teams Farmworkers Relationship Specialty Start Date End Date Keith Ruiz MD PCP - General 05/12/11 12/26/19 documented as of this encounter
--- OUTSIDE RECORDS SUMMARY | 2024-06-23 18:24 | XMS_ITS | Encounter Summary ---
Author Organization [facility] Address [address] [place] [address] Care Team Providers Care Mold Filler Plastic Dolls Name Role Phone Keith Ruiz MD Primary Care Provider [phone] Reason for Visit * Reason Comments Heart Problem * Consult (Routine) - Closed Specialty Diagnoses / Procedures Referred By Contnikhil t Referred To Contact Cardiology Diagnoses Pericardial effusion John Montes MD [facility] Cardiology [place] [address] [place] [address] Phone: tel: fax: Referral ID Status Reason Start Date Expiration Date V isits Requested Visits Authorized [id number] Closed Specialty Services Required 05/05/2017 1 1 Encounter Details Date Type Department Care Team (Late st Contact Info) Description 06/09/2017 9:00 EST Office Visit [facility] Cardiology [place] [address] [place] [address] Campos Alan MD Pericardial effusion (Primary Dx) Social History [...] Sign Reading Time Taken Comments Blood Pressure 90/60 06/09/2017 0859 EST Pulse 99 06/09/2017 0859 EST Temperature - - Respiratory Rate - - Oxygen Saturation - - Inhaled Oxygen Concentration - - Weight 45.8 kg (101 lb) 06/09/2017 0859 EST Height 157.5 cm (5' 2) 06/09/2017 0859 EST Body Mass Index 18.47 06/09/2017 0859 EST documented in this encounter Progress Notes * Campos Alan MD - 06/09/2017 0900 EST This office note has been dictated. documented in this encounter Consult Notes * Campos Alan MD - 06/09/2017 0000 EST [facility] CARDIOLOGY CONSULTATION - 06/09/2017 REASON FOR CONSULTATION: I have been asked by Dr John Montes to consult on Karolina Richards because of a diagnosis of a pericardial effusion. HISTORY OF PRESENT ILLNESS: Karolina is a 41-year-old woman who has recently seen Dr Montes because of a history of constipation and celiac disease. She has had a number of imaging studies in regardto these complaints, which I understand have basically not revealed any significant pathology. Dr Montes also posed the possibility of a kidney stone as well to explain some of her abdominal symptoms. During an abdominal ultrasound in December,, which I believe was performed at [facility], a small to moderate-sized pericardial effusion was noted incidentally. This is the reason that we are asked to consult on the patient. Other than her abdominal complaints, the patient has basically been very healthy. She denies any chest discomfort, difficulty breathing, orthopnea, peripheral edema, palpitations, dizziness, or syncope. Her exercise tolerance is excellent and she lives a full life. She is not currently taking any significant medications and specifically no drugs that have been associated with pericardial disease. She also denies a history of fevers or any unusual symptoms other than those referable to her bowel problems over the last few years. There is no history of hypertension or diabetes. She is a nonsmoker and does not consume significant amounts of alcohol. She has not hadany unusual foreign travel. PAST MEDICAL HISTORY: Unremarkable except for the aforementioned bowel issues. 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 As indicated, she denies alcohol use. She has 1 child. FAMILY HISTORY: There is no significant history of cardiovascular disease except that it sounds like her father may have atrial fibrillation. REVIEW OF SYSTEMS: A complete 12-point review of systems is contained in her chart and is unremarkable except as noted above. OBJECTIVE: On physical examination today, she is a well-developed, well- nourished woman in no distress. Her blood pressure is 90/60 and her resting pulse is 85 and regular. She is 62 inches tall and weighs 101 pounds. Her HEENT examination is within normal limits. Her chest is clear. Cardiovascular examination reveals a normal jugular venous pressure. Cardiac point of maximal impulse is normal. The first and second heart sounds are normal without murmurs, rubs, or gallops. Extremities are without cyanosis, clubbing, or edema. She is oriented x3 and there are no obvious focal neurologic findings. DIAGNOSTIC DATA: Karolina had a limited echocardiogram performed this morning, before I saw her. Itreveals a completely normal-appearing heart. She has a small anterior pericardial effusion which ismost prominent over the right ventricle. She also has a very echogenic pericardium, but this is notan abnormal finding. ASSESSMENT AND MANAGEMENT: Karolina has a small asymptomatic pericardial effusion. Most likely, this is idiopathic and noninflammatory, in which case there is nothing to be done except I believe it should be monitored roughly annually with a repeat limited echocardiogram. Occasionally, asymptomatic effusions can become large and cause cardiac tamponade. The other possibility is that this is an inflammatory effusion, but this is very unlikely based on the absence of any other symptoms or signs suggestive of an inflammatory process. However, I would like to check a high-sensitivity CRP to further confirm this impression. If her CRP is low, once again, I think the only thing that should be done is to monitor this on an annual basis. If the CRP is high, we would then have to consider some other imaging tests of the pericardium and the possibility of instituting some sort of anti-inflammatory regimen. I have not made a specific return visit for her, pending the CRP, which will be drawn today. I have also scheduled an echocardiogram in a year. If the effusion is changing, we should see her. If not, there is no necessity to see her providing she is continuing to feel well. Campos Alan MD 09 30 AM - Campos Alan MD cn Dictation ID: [id number] cc: John Montes MD, [facility], [facility] - Gastroenterology [address] [place] [address] Keith Ruiz MD, [address] [address] Addendum: hs CRP < .2, arguing against an inflammatory effusion. documented in this encounter Plan of Treatment Not on file documented as of this encounter Results * HIGH SENSITIVITY C-REACTIVE PROTEIN (CARDIOVASCULAR DISEASE) (06/09/2017 9:40 EST) High Sensitivity CRP <0.2 mg/L 06/09/2017 14:03 EST [facility] Comment: Reference Range: <1.0 mg/L Low risk 1.0-3.0 mg/L Average risk >3.0 mg/L High risk >10.0 mg/L Acute inflammation Blood specimen (specimen) BLOOD SPECIMEN / Unknown 06/09/2017 9:40 EST 06/09/2017 11:55 EST us Campos Alan MD CHEMISTRY & BLOOD GAS ORDERABLES Final Result [facility] [address] [place] [address] documented in this encounter Visit Diagnoses Diagnosis Pericardial effusion- Primary Unspecified disease of pericardium documented in this encounter Care Teams Mold Filler Plastic Dolls Relationship Specialty Start Date End Date Keith Ruiz MD [address] [facility] [place] [address] PCP - General 03/10/17 06/13/18 documented as of this encounter
--- OUTSIDE RECORDS SUMMARY | 2024-06-23 18:24 | XMS_ITS | Encounter Summary ---
Author Organization [facility] Address [address] [place] [address] Care Team Providers Care Flight Test Shop Mechanic Name Role Phone Chaim Will MD Primary Care Provider [phone] Reason for Visit * Reason Onset Date Comments Appointment Related 06/15/2018 Encounter Details Date Type Department Care Team (Late st Contact Info) Description 06/15/2018 Telephone [facility] Cardiology - [place] [address] Campos Alan MD Appointment Related Social History Tobacco Use Types Packs/Day Years Used Date Smoking Tobacco: Never Smokeless Tobacco: Never Comments Unknown Sex and Gender Information Value Date Recorded Sex Assigned at Not on file Legal Sex Female 18:01 EST Gender Identity Not on file Sexual Orientation Not on file documented as of this encounter Miscellaneous Notes * Telephone Encounter - Jackie Al RN - 06/15/2018 1235 EST Pt is aware that her clinic visit with Dr. Alan has been rescheduled for 08/17/18. I discussed w/ Dr. Alan pt's request to have her echocardiogram changed to a vascular ultrasound because, per pt, it is less expensive for her than the echo. Dr. Alan is not aware of a study that he can order which would be considered a vascular ultrasound and recommends to pt that she follow up w/ a limited 2 D echo. Pt updated and expresses understanding. She is going to contact pt financial services before she has the test in July. * Telephone Encounter - Nora Devine - 06/15/2018 0917 EST Pt calling to reschedule FUR and ECHO. Pt asking if it is possible to have US (how pericardial effusion was found) instead of Echo due to cost of echo. Please call Pt to discuss options. [phone] [place] FUR on 08/17/2018 at 10:20am Thank you documented in this encounter Plan of Treatment Not on file documented as of this encounter Visit Diagnoses Not on filedocumented in this encounter Care Teams Flight Test Shop Mechanic Relationship Specialty Start Date End Date Chaim Will MD PCP - General 06/14/18 05/10/19 documented as of this encounter
--- OUTSIDE RECORDS SUMMARY | 2024-06-23 18:24 | XMS_ITS | Encounter Summary ---
[place] [address] Care Team Providers Care Plate Cleaner Name Role Phone Keith Ruiz MD Primary Care Provider Unavail le Encounter Details Date Type Department Care Team (Late st Contact Info) Description 11/14/2015 [place] [phone] Francesca Lundberg RN Social History Tobacco Use Types Packs/Day [...] encounter Miscellaneous Notes * Telephone Encounter - Divya Jean Baptiste RD - 12/09/2015 3:31 PM EDT Follow up phone call: Taking 2 tablespoons of michael seeds daily And also taking 3 rashad-colace per day This has helped her have a BM every 3 days. She feels a lot better. This is a big improvement from her baseline where she was having BM once per week. She is also taking in more fluids to meet her daily need and she is walking documented in this encounter Plan of Treatment Upcoming Encounters Date Type Department Care Team (Latest Contact Info) Description 06/30/2024 9:45 AM EST Hospital Encounter Gastroenterology at [place] [phone] Flor Velasco MD [facility] [place] [address] 06/30/2024 9:45 AM EST - 06/30/2024 10:45 AM EST [place] [address] Flor Velasco MD [facility] [place] [address] COLONOSCOPY, DIAGNOSTIC (WRVU 3.26) 07/27/2024 8:00 AM EST TH Visit (TeleHealth) Gastroenterology at [place] [phone] Unruly Ramirez MD [facility] [place] [address] 08/03/2024 3:00 PM EST Office Visit Neurology at [address] [address] Melvin Ramírez MD [facility] [place] [address] 08/25/2024 1:45 PM EDT [place] [phone] Keven Church MD [facility] [address] Scheduled Procedures Name Priority Associated Diagnoses Date/Ti me COLONOSCOPY, DIAGNOSTIC (WRV U 3.26) Hematochezia 06/30/2024 9:45 AM EST documented as of this encounter Visit Diagnoses Not on filedocumented in this encounter Care Teams Plate Cleaner Relationship Specialty Start Date End Date Keith Ruiz MD PCP - General 05/12/11 12/26/19 documented as of this encounter
--- OUTSIDE RECORDS SUMMARY | 2024-06-23 18:24 | XMS_ITS | Encounter Summary ---
Author Organization [facility] Address [address] [place] [address] Care Team Providers Care Journeyman Pressman Name Role Phone Grealdo Bailey [facility] Primary Care Provider [phone] Reason for Visit * Reason Comments Follow-up f/u celiac worsening / fmr alessandra pt * Consult (Routine/Next Available) - Closed Specialty Diagnoses / Procedures Referred By Contact Referred To Contact Gastroenterology and Hepatology Diagnoses Celiac disease Campos Alan MD [facility] Gastroenterology [address] [address] Phone: tel: fax: Referral ID Status Reason Start Date Expiration Date V isits Requested Visits Authorized [id number] Closed Specialty Services Required 08/17/2018 1 1 Encounter Details Date Type Department Care Team (Late st Contact Info) Description 05/11/2019 9:00 EST Office Visit [facility] Gastroenterology [address] [address] Pato Norman MD [address] [place] [address], [address] [place] [address] Celiac disease (Primary Dx) Social History Tobacco Use Types Packs/Day Years Used Date Smoking Tobacco: Never Smokeless Tobacco: Never Comments No Sex and Gender Information Value Date Recorded Sex Assigned at Not on file Legal Sex Female 18:01 EST Gender Identity Not on file Sexual Orientation Not on file documented as of this encounter Last Filed Vital Signs Vital Sign Reading Time Taken Comments Blood Pressure 100/58 05/11/2019910 EST Pulse 80 05/11/2019910 EST Temperature - - Respiratory Rate 16 05/11/2019910 EST Oxygen Saturation - - Inhaled Oxygen Concentration - - Weight 46.7 kg (103 lb) 05/11/2019910 EST celeste sutton Height 157.5 cm (5' 2) 05/11/2019910 EST Body Mass Index 18.84 05/11/2019910 EST documented in this encounter Functional Status * [...] documented in this encounter Progress Notes * Pato Norman MD - 05/11/2019899 EST GI Attending Attestation: I saw and evaluated this patient with the fellow/resident. I agree with the history and physical exam. I agree with the impression and plan. * Ovidio Barillas MD - 05/11/2019899 EST Gastroenterology & Hepatology Initial Visit Reason for Referral: Celiac disease Referring Provider: Geraldo Gracia HPI: Karolina Feng with a PMHx of possible Celiac disease who presents in referral from Campos Alan. At this time, the patient denies any acute complaints. She delineates the timeline of her Celiac diagnosis. The patient reports that she had a hysterectomy in , and after the surgey, she began to experience unremitting right-sided burning abdominal pain accompanied by headaches, mutism due to the pain, hair loss, skin blistering, and constipation with bowel movements as infrequently as every 2 weeks. She requested her PCP at the time to test for Celiac disease, whichshowed elevated transglutaminase antibodies, but she did not undergo endoscopy at the time of testing. She reports she underwent both upper and lower endoscopy at [facility] in 2016, 8 months after her diagnosis, and the findings were within normal limits. She managed her symptoms with diet management, and she feels that any symptoms that she may experience are at baseline. On ROS, she endorses recent nausea (specifically only after brushing her teeth), hematochezia afterstraining (maybe once monthly), and a long-standing history of bloating. She denies F/C/NS, recent weight change, worsening appetite changes, abdominal pain, vomiting, dysphagia, worsening constipation (BM q4days, which is good for her), diarrhea, melena, or skin changes. She reports no new major updates to her medical or surgical history. Medication changes pertinent for zolpidem taper. She reports a history of GI disease in her family, including colon cancer in paternal grandfather, and her paternal cousin, who at the age of 38 from it. She thinks there may be a family history of IBS in her father and daughter. She lives in [place], [place]. She works mostly in [place] for a [employer]. Former smoker and occasional EtOH drinker. Denies drug use. Her diet consists of mostly protein, potatoes, veggies, and fruit. She avoids any wheat- based or corn-based products. She exercises ~once monthly. PMH: As stated in HPI. ROS: A 10-point ROS was performed and is negative other than stated in HPI. Current Outpatient Medications: ??? amitriptyline (ELAVIL) 25 mg tablet, Take 3 tabs at bedtime, taper as directed (Patient taking differently: Take 12.5 mg by mouth at bedtime. ), Disp: 30 Tab, Rfl: 0 ??? busPIRone (BUSPAR) 10 mg tablet, Take 15 mg by mouth daily., Disp: , Rfl: ??? docusate sodium (COLACE) 50 mg capsule, Take 50 mg by mouth at bedtime., Disp: , Rfl: ??? MAGNESIUM ORAL, Take 1,000 mg by mouth. , Disp: , Rfl: ??? Multivitamins with Minerals tablet tablet, Take 1 Tab by mouth daily., Disp: , Rfl: ??? sertraline (ZOLOFT) 25 mg tablet, Take 25 mg by mouth daily., Disp: , Rfl: ??? traZODone (DESYREL) 50 mg tablet, Take 50 mg by mouth at bedtime., Disp: , Rfl: ??? zolpidem (AMBIEN) 5 mg tablet, Take 2.5 mg by mouth at bedtime. , Disp: , Rfl: Allergies Allergen Reactions ??? Gluten Nausea And Vomiting, Other (See Comments) and Rash Also stomach aches very bad ??? Codeine Nausea And Vomiting and Rash ??? Doxycycline Nausea And Vomiting Social History: As above in HPI Family History: As above in HPI Physical Exam: VS: Afeb, HDS, breathing well on room air General: Middle-age female who appears listed age and in NAD, appropriately conversant HEENT: No scleral icterus, MMM. No oral ulcers appreciated Lymph: No cervical lymphadenopathy Lungs: CTAB Heart: RRR, Normal S1/S2 Abdomen: Tattoo present. Soft, Non-distended, mildly tender to deep palpation in periumbilical region with no guarding or rebound tenderness. Extremities: No peripheral edema Skin: No jaundice Labs and Imaging: EGD results from [facility] on 11/11/2015 - Z-line regular, 36 cm from the incisors. - Normal stomach. - Normal examined duodenum. Biopsied. -No peristalsis noted in stomach or duodenum during exam -Patulous GEJ Colonoscopy from same date: - The perianal and digital rectal examinations were normal. - The terminal ileum appeared normal. - A diffuse area of granular mucosa was found in the cecum. Biopsies were taken with a cold forcepsfor histology. - A patchy area of mildly erythematous mucosa was found in the rectum. This was biopsied with a cold forceps for histology. Pathology: A - Duodenum,?biopsy: - Duodenal mucosa within normal limits. B - Cecum,?biopsy: - Colonic mucosa with melanosis coli. C - Rectum,?biopsy: -?Rectal mucosa within normal limits. Impression: Karolina Feng with a PMHx of possible Celiac disease who presents to [facility]. Based on patient's reported history, her symptoms are controlled with dietary management. Her previous EGD in 2016 was within normal limits; however, this took place several months after she eliminated gluten from her diet, so while the results were within normal limits and her symptoms are controlled, the Celiac diagnosis has not been ascertained with biopsy. Given her symptom control, would recommend continue current management with diet control. Plan: - Continue current management with dietary restrictions. - Follow-up PRN. Patient was seen and examined with Dr. Norman. Yazan Barillas MD PGY-1 Internal Medicine Page through [employer] documented in this encounter Miscellaneous Notes * Addendum Note - Dung Espinoza - 05/11/2019 0900 ESTAddended by: DUNG ESPINOZA on: 05/12/2019 11:04 Modules accepted: Level of Service documented in this encounter Plan of Treatment Not on file documented as of this encounter Visit Diagnoses Diagnosis Celiac disease- Primary documented in this encounter Historical Medications * This list may reflect changes made after this encounter. Multivitamins with Minerals tablet tablet Take 1 Tab by mouth daily. traZODone (DESYREL) 50 mg tablet Take 50 mg by mouth at bedtime. added in this encounter Care Teams Journeyman Pressman Relationship Specialty Start Date End Date Gerlado Bailey, NANNETTE [address] [place] [address] [place] [address] PCP - General 05/11/19 documented as of this encounter
--- OUTSIDE RECORDS SUMMARY | 2024-06-23 18:24 | XMS_ITS | Encounter Summary ---
Author Organization [facility] [place] [address] Care Team Providers Care Varnishing Unit Tool Setter Name Role Phone Keith Ruiz MD Primary Care Provider Unavail le Encounter Details Date Type Department Care Team (Late st Contact Info) Description 10/21/2015 - 10/21/2015 12:04 AM EDT Hospital Encounter Radiology Library at [facility] [place] [address] [facility] Temporary Pain Discharge Disposition: Home Social [...] 9:45 AM EST Hospital En[place] [phone] Flor Velasco MD [facility] [place] [address] 06/30/2024 9:45 AM EST - 06/30/2024 10:45 AM EST [place] [phone] Flor Velasco MD [facility] [place] [address] COLONOSCOPY, DIAGNOSTIC (WRVU 3.26) 07/27/2024 8:00 AM EST TH Visit (TeleHealth) [place] [phone] Unruly Ramirez MD [facility] DR [place] [address] 08/03/2024 3:00 PM EST Office Visit Neurology at [address] [address] Melvin Ramírez MD [facility] DR [place] [address] 08/25/2024 1:45 PM EDT Office [place] [phone] Keven Church MD [facility] [place] [address] Scheduled Procedures Name Priority Associated Diagnoses Date/Ti me COLONOSCOPY, DIAGNOSTIC (WRV U 3.26) Hematochezia 06/30/2024 9:45 AM EST documented as of this encounter Procedures Procedure Name Priority Date/Time Associated Diagnosis Comments FILM LIBRARY STORAGE ONLY DX ABDOMEN Routine 10/21/2015 12:00 AM EDT Pain documented in this encounter Results * Film Library- Storage only DX Abdomen (10/21/2015 12:00 AM EDT) Narrative GINO - 10/23/2015 1:51 AM EDT This exam is for storage only and is auto-finalizing. Dr Pillai [facility] FILM LIBRARY ORD ERABLES [place], [place] documented in this encounter Visit Diagnoses Diagnosis Pain Generalized pain Hematochezia Blood in stool documented in this encounter Care Teams Varnishing Unit Tool Setter Relationship Specialty Start Date End Date Keith Ruiz MD PCP - General 05/12/11 12/26/19 documented as of this encounter
--- OUTSIDE RECORDS SUMMARY | 2024-06-23 18:24 | XMS_ITS | Referral Summary ---
Author Organization [facility] Address [address] [place] [address] Care Team Providers Care Small Package And Bundle Sorter Clerk Name Role Phone Geraldo Bailey DNP Primary Care Provider [phone] Encounters Date Type Department Care Team Description 06/21/2024 Lab Requisition [facility] Pathology & Laboratory Medicine - [facility] [address] [place] [address] Outr Resulting Lab, Provider from Last 3 Months Allergies Active Allergy Reactions Criticality Noted Date [...] Take 1 Tab by mouth daily. Active Social History Tobacco Use Types Packs/Day Years Used Date Smoking Tobacco: Never Smokeless Tobacco: Never Interpersonal Safety Answer Date Record ed Physically Hurt Never 12/31/2019 Verbally Threaten Not on file 12/31/2019 Comments No Sex and Gender Information Value Date Recorded Sex Assigned at Not on file Legal Sex Female 18:01 EST Gender Identity Not on file Sexual Orientation Not on file Last Filed Vital Signs Vital Sign Reading [...] Body Mass Index 18.84 05/11/2019 0911 EST Functional Status * Because of a physical, mental, or emotional condition, does this person have difficulty doing errands alone such as visiting a doctor's office or shopping? Answer Date of Assessment Author No 08/17/2018 10:31 EDT Mental Status * Because of a physical, mental, or emotional condition, does this person have serious difficulty concentrating, remembering, or making decisions? Answer Entry Date Author No 08/17/2018 10:31 EDT Plan of Treatment Not on file Procedures Procedure Name Priority Date/Time Associated Diagnosis Comments FECAL BACTERIAL PATHOGENS BY PCR Routine 06/19/2024 20:00 EST from Last 3 Months Results * FECAL BACTERIAL PATHOGENS BY PCR (06/19/2024 20:00 EST) Salmonella PCR Negative Negative 06/21/2024 22:10 [facility] Shigella/Enteroin vasive E. coli Negative Negative 06/21/2024 22:10 [facility] LAB CAMPYLOBACTER PCR Negative Negative 06/21/2024 22:10 [facility] Shiga Toxin PCR Negative Negative 22:10 EST [facility] Feces SPECIMEN FROM RECTUM / Unknown 06/19/2024 20:00 EST 06/21/2024 17:30 EST us Provider Outr Resulting Lab MICROBIOLOGY - GENER AL ORDERABLES Final Result [facility] [address] [place] [address] from Last [address] [place] [address] Care Teams Small Package And Bundle Sorter Clerk Relationship Specialty Start Date End Date Geraldo Bailey, [place] [address] PCP - General 05/11/19
--- OUTSIDE RECORDS SUMMARY | 2024-06-23 18:24 | XMS_ITS | Encounter Summary ---
Author Organization [facility] Address [address] [place] [address] Care Team Providers Care Pharmacy Grad Intern Name Role Phone Chaim Will MD Primary Care Provider [phone] Encounter Details Date Type Department Care Team (Late st Contact Info) Description 06/15/[address] [facility] Cardiology - [address] [place], [place] [phone] Campos Alan MD Pericardial effusion (Primary Dx) [...] pericardium documented in this encounter Care Teams Pharmacy Grad Intern Relationship Specialty Start Date End Date Chaim Will MD PCP - General 06/14/18 05/10/19 documented as of this encounter
--- OUTSIDE RECORDS SUMMARY | 2024-06-23 18:24 | XMS_ITS | Encounter Summary ---
[place] [address] Care Team Providers Care Heel Slugger Name Role Phone Keith Ruiz MD Primary Care Provider Unavailab le Reason for Referral * Diagnostic Test (Routine) - Closed Specialty Diagnoses / Procedures Referred By Mikaela costa Referred To Contact Radiology Diagnoses Upper abdominal pain Procedures MRI Enterography wwo Contrast Kelle Rosas APRN [facility] [place] [address] [place] [address] Referral ID Status Reason Start Date Expiration Date V isits Requested Visits Authorized [id number] Closed Specialty Service Requested 02/08/2017 04/26/2017 1 1 Encounter Details Date Type Department Care Team (Late st Contact Info) Description 02/05/2017 Orders [place] [address] Kelle Rosas APRN [facility] [place] [address] Upper abdominal pain Social History Tobacco Use [...] 9:45 AM EST Hospital Encounter Gastroenterology at [place] [phone] Flor Velasco MD [facility] [place] [address] 06/30/2024 9:45 AM EST - 06/30/2024 10:45 AM EST Surgery Gastroenterology at [place] [phone] Flor Velasco MD [facility] [place] [address] COLONOSCOPY, DIAGNOSTIC (WRVU 3.26) 07/27/2024 8:00 AM EST TH Visit (TeleHealth) Gastroenterology at [place] [phone] Unruly Ramirez MD [facility] [place] [address] 08/03/2024 3:00 PM EST Office Visit Neurology at [address] [address] Melvin Ramírez MD [facility] [place] [address] 08/25/2024 1:45 PM EDT Office [place] [address] Keven Church MD [facility] [place] [place] [address] Scheduled Procedures Name Priority Associated Diagnoses Date/Ti tn COLONOSCOPY, DIAGNOSTIC (WRV U 3.26) Hematochezia 06/30/2024 9:45 AM EST documented as of this encounter Results * XR Fluoro Small [...] Sapp MD at 02/16/2017 4:11 PM Kelle Rosas APRN IMG FLUORO ORDERABLE S * MRI Enterography wwo Contrast (02/08/2017 6:15 [...] without areas of colonic wall thickening. Kelle Rsoas APRN [facility] MRI ORDERABLES documented in this encounter Visit Diagnoses Diagnosis Upper abdominal pain Abdominal pain, other specified site Upper abdominal pain Abdominal pain, other specified site Upper abdominal pain Abdominal pain, other specified site Hematochezia Blood in stool documented in this encounter Care Teams Heel Slugger Relationship Specialty Start Date End Date Keith Riuz MD PCP - General 05/12/11 12/26/19 documented as of this encounter
--- OUTSIDE RECORDS SUMMARY | 2024-06-23 18:24 | XMS_ITS | Encounter Summary ---
Author Organization [facility] [place] [place] [address] Care Team Providers Care Solid State Tester Name Role Phone Keith Ruiz MD Primary Care Provider [facility] le Encounter Details Date Type Department Care Team (Latest Contact Info) Description 02/02/2017 12:05 AM EDT - 02/02/2017 11:59 PM EDT Hospital Encounter Radiology Library at [facility] [place] [address] Kelle Rosas APRN [facility] [place] [address] Pain Discharge Disposition: Home Social History Tobacco [...] 9:45 AM EST Hospital Encounter [place] [address] Flor Velasco MD [facility] [place] [address] 06/30/2024 9:45 AM EST - 06/30/2024 10:45 AM EST [place] [address] Flor Velasco MD [facility] [place] [address] COLONOSCOPY, DIAGNOSTIC (WRVU 3.26) 07/27/2024 8:00 AM EST TH Visit (TeleHealth) [place] [address] Unruly Ramirez MD [facility] [place] [address] 08/03/2024 3:00 PM EST Office Visit Neurology at [address] [address] Melvin Ramírez MD [facility] [place] [address] 08/25/2024 1:45 PM EDT Office Visit Rheumatology at [facility] [place] [address] Keven Church MD [facility] [place] [address] Scheduled Procedures Name Priority Associated Diagnoses Date/Ti me COLONOSCOPY, DIAGNOSTIC (WRV U 3.26) Hematochezia 06/30/2024 9:45 AM EST documented as of this encounter Procedures Procedure Name Priority Date/Time Associated Diagnosis Comments FILM LIBRARY STORAGE ONLY ULTRASOUND STUDY Routine 02/02/2017 12:05 AM EDT Pain documented in this encounter Results * Film Library- Storage Only Ultrasound Study (02/02/2017 12:05 AM EDT) Narrative [facility] - 02/05/2017 11:50 AM EDT This exam is for storage only and is auto-finalizing. Kelle Rosas APRN IMG FILM LIBRARY ORD ERABLES [place], [place] documented in this encounter Visit Diagnoses Diagnosis Pain Generalized pain Hematochezia Blood in stool documented in this encounter Care Teams Solid State Tester Relationship Specialty Start Date End Date Keith Ruiz MD PCP - General 05/12/11 12/26/19 documented as of this encounter
--- OUTSIDE RECORDS SUMMARY | 2024-06-23 18:24 | XMS_ITS | Encounter Summary ---
Author Organization [facility] Address [address] [place] [address] Care Team Providers Care Route Delivery Supervisor Name Role Phone Geraldo Bailey [facility] Primary Care Provider [phone] Encounter Details Date Type Department Care Team (Late st Contact Info) Description 03/22/2020 Lab Requisition [facility] Pathology & Laboratory Medicine - [facility] [address] [place] [address] Outr Resulting Lab, Provider Social History Tobacco [...] Procedure Name Priority Date/Time Associated Diagnosis Comments HN LAB PATH REVIEW - COAG Today 03/22/2020 12:03 EDT LUPUS ANTICOAGULANT CASCADE Routine 03/22/2020 12:03 EDT ANTI NUCLEAR AB (ARNULFO), IFA Routine 03/22/2020 12:03 EDT SPEP, INCLUDES QUANTITATION OF MONOCLONAL SPIKE Routine 03/22/2020 12:03 EDT documented in this encounter Results * HN LAB DIFF PATH REVIEW - COAG (03/22/2020 12:03 EDT) Pathology Review Comment - Coagulation Bernice Garcia MD 03/26/2020 14:34 EDT [facility] Blood VENOUS BLOOD / Unknown 03/22/2020 12:03 EDT 03/22/2020 21:53 EDT us Provider Outr Resulting Lab HEMATOLOGY & PF4 ORD ERABLES Final Result [facility] [address] [place] [address] * (ABNORMAL) SPEP, INCLUDES QUANTITATION OF MONOCLONAL SPIKE (03/22/2020 12:03 EDT) Total Protein 7.5 6.3 - 8.2 g/dL 03/25/2020 12:42 EDT [facility] Albumin % 63.8 55.8 - 66.1 % 03/25/2020 12:42 [facility] Alpha-1 % 3.4 2.9 - 4.9 % 03/25/2020 12:42 T [facility] Alpha-2 % 8.0 7.1 - 11.8 % 03/25/2020 12:42 [facility] Beta % 8.2(L) 8.4 - 13.1 % 03/25/2020 12:42 [facility] Gamma % 16.6 11.1 - 18.8 % 03/25/2020 12:42 T [facility] SPEP Comment No apparent monoclonal protein seen on serum electrophoresis 03/25/2020 12:42 EDT [facility] Comment:See scanned/suppleme ntary report. Blood VENOUS BLOOD / Unknown 03/22/2020 12:03 EDT 03/22/2020 22:07 EDT us Provider Outr Resulting Lab CHEMISTRY & BLOOD GA S ORDERABLES Final Result Performing Organization Address [facility] Co de Phone Number [facility] [address] [place] [address] * LUPUS ANTICOAGULANT CASCADE (03/22/2020 12:03 EDT) [place] Summary Final Interpretation: Negative for detection of lupus anticoagulant (LA). ??Where clinical suspicion for antiphospholipid syndrome is high, it may be appropriate to perform alternative LA or antiphospholipid assays. Recommendation: The laboratory criteria for Antiphospholipid Syndrome (aPS) include positive testing for one of the following on 2 or more occasions, at least 12 weeks apart: 1) Lupus anticoagulant, 2) Cardiolipin antibodies (IgG or IgM) in medium or high titer, 3) Xltz-2-ewqdrlfheyze 1 antibodies (IgG or IgM) in medium or amanda titer. Solid phase assays for Pxzq-9-fibnnxglkzyk 1 (B2GP1) and Cardiolipin antibodies are also recommended. Correlation with those results is advised. Bernice Garcia MD 03/26/2020 14:34 EDT [facility] Comment:Lupus Anticoagulant not detected Dilute Viper Venom 27.5 27.2 - 36.9 secs 03/26/2020 14:34 EDT [facility] Silica Clotting Time 40.7 30.2 - 48.4 secs 03/26/2020 14:34 EDT [facility] Blood VENOUS BLOOD / Unknown 03/22/2020 12:03 EDT 03/22/2020 21:53 EDT us Provider Outr Resulting Lab HEMATOLOGY & PF4 ORD ERABLES Final Result Performing Organization Address City/[facility]/ZIP Co de Phone Number [facility] [address] [place] [phone] * (ABNORMAL) ANTI NUCLEAR AB (ARNULFO), IFA (03/22/2020 12:03 EDT) ARNULFO Interpretation Positive( A) Negative 03/26/2020 16:55 EDT [facility] Comment: For titers greater than or equal to 1:160 (except the centromere and nucleolar patterns) it is recommended that specific follow-up autoantibody testing ??(such as for dsDNA and Extractable Nuclear Antigens) be performed on all diffuse and/or speckled patterns NOTE: For add-on testing dsDNA is stable for 7 days refrigerated while Extractable Nuclear Antigens are only stable for 48 hours refrigerated. ARNULFO Titer and Pattern 1 1:320 Centromer e,Homogen eous 03/26/2020 16:55 EDT [facility] Blood VENOUS BLOOD / Unknown 03/22/2020 12:03 EDT 03/22/2020 22:07 EDT Narrative [facility] - 03/26/2020 16:55 EDT Results were obtained with the INOVA NOVA Lite HEp-2 ARNULFO Kit by indirect immunofluorescence. us Provider Outr Resulting Lab IMMUNOLOGY AND SEROL OGY ORDERABLES Final Result [facility] [address] [place] [address] documented in this encounter Visit Diagnoses Not on filedocumented in this encounter Care Teams Route Delivery Supervisor Relationship Specialty Start Date End Date Geraldo Bailey, [place] [address] PCP - General 05/11/19 documented as of this encounter
--- OUTSIDE RECORDS SUMMARY | 2024-06-23 18:24 | XMS_ITS | Encounter Summary ---
Author Organization [facility] Address [address] [place] [address] Care Team Providers Care Drop Wire Aligner Name Role Phone Chaim Will MD Primary Care Provider [phone] Reason for Visit * Reason Onset Date Comments Appointment Related 06/14/2018 Encounter Details Date Type Department Care Team (Late st Contact Info) Description 06/14/2018 Telephone [facility] Cardiology - [address] [place], [place] [phone] Campos Alan MD Appointment Related Social History [...] Telephone Encounter - Cristina Infante RN - 06/16/2018 1327 EST From: Cristina Infante Sent: May 11:44 AM To: Campos Alan <[email or web address]> Cc: Sara Em <[email or web address]>; Kenny Pak <[email or web address]> Subject: SECURE# Importance: High Sensitivity: Confidential Hi Dr. Alan, Pt calling to reschedule FUR and ECHO. Pt asking if it is possible to have US (how pericardial effusion was found) instead of Echo due to cost of echo. Please call Pt to discuss options. [phone] Dayanna FUR on 08/17/2018 at 10:20am Thank you aJckie Al (covering clinic nurse) spoke to patient and sent me this: Pt is aware that her clinic visit [...] before she has the test in July. It looks like we are waiting to see if Patient Financial services can assist her with the cost. From: Campos Alan <[email or web address]> Sent: May 12:12 PM To: Cristina Infante <[email or web address]> Subject: RE: SECURE# Sensitivity: Confidential We???ll go without the echo - it???s pretty borderline whether we really need it. ML Called Karolina to update her that an echo wasn't needed per Dr. Alan and she stated that Dr. Alan called her earlier regards to this. Patient was pleasantly surprised from his phone call andshe will plan to see him in July 2018. No barriers to learning were identified. * Telephone Encounter - Shayla Chow - 06/14/20181999 EST PAS Message: Karolina Martel called to cancel appointment with Campos Alan MD on 06/15/2018 at 9:15 and 10:20 due to scheduling conflict Patient would like a call back to reschedule? yes documented in this encounter Plan of Treatment Not on file documented as of this encounter Visit Diagnoses Not on filedocumented in this encounter Care Teams Drop Wire Aligner Relationship Specialty Start Date End Date Chaim Will MD PCP - General 06/14/18 05/10/19 documented as of this encounter
--- OUTSIDE RECORDS SUMMARY | 2024-06-23 18:24 | XMS_ITS | Encounter Summary ---
Author Organization [facility] Address [address] [place] [address] Care Team Providers Care Channel Executive Name Role Phone Keith Ruiz MD Primary Care Provider [phone] Reason for Visit * Reason Onset Date Comments Appointment Related 10/20/2017 Encounter Details Date Type Department Care Team (Late st Contact Info) Description 10/20/2017 Telephone [facility] Pelvic Medicine and Reconstructive Surgery - Medical Office [facility] [address] [place] [address] Becki [place], RN Appointment Related Social History Tobacco Use Types Packs/Day Years Used Date Smoking Tobacco: Never Smokeless Tobacco: Never Comments Unknown Sex and Gender Information Value Date Recorded Sex Assigned at Not on file Legal Sex Female 18:01 EST Gender Identity Not on file Sexual Orientation Not on file documented as of this encounter Miscellaneous Notes * Telephone Encounter - Elzbieta Montana RN - 10/20/[address] Pimentel, TC to pt to reschedule for manometry. From 11/01 to 12/13 documented in this encounter Plan of Treatment Not on file documented as of this encounter Visit Diagnoses Not on filedocumented in this encounter Care Teams Channel Executive Relationship Specialty Start Date End Date Keith Ruiz MD [address] [facility] [place] [phone] PCP - General 10/11/17 1/14/19 documented as of this encounter
--- OUTSIDE RECORDS SUMMARY | 2024-06-23 18:25 | XMS_ITS | Encounter Summary ---
Author Organization [facility] Address [address] [place] [address] Care Team Providers Care Locksmith Helper Name Role Phone Unavailable Primary Care Provider Unavailabl e Encounter Details Date Type Department Care Team (Late st Contact Info) Description 08/21/2005 Results Only [facility] - [facility] [address] [place] [address] Norm Washington MD [address] [place] [address] Social History Tobacco Use Types Packs/Day Years [...] Procedure Name Priority Date/Time Associated Diagnosis Comments CYTOPATHOLOGY Routine 08/21/2005 0:00 EST documented in this encounter Results * CYTOPATHOLOGY (08/21/2005 0:00 EST) Pathology Report: CYTOPATHOLOGY REPORT Reports generated via electronic interface contain original data; however they are lacking the format of the original report. Caution should be taken when reading/interpreti ng unformatted reports. Name: ? KAROLINA RIVERS ? Accession #: ? [id number] : ? 1975 (Age: 30) ??F ?Collect Date: ? 08/21/2005 Location: ? [facility] ? Receive Date: ? 08/25/2005 Provider: ?NORM WASHINGTON MD Copy to: ? Specimen/Source: ?ThinPrep Pap Test, Cervix/Endocervix, processed on [email or web address] ThinPrep Imaging System, with manual evaluation Last Menstrual Period: ? 08/13/05 Menstrual/Pregnanc y Status: ? Menorrhagia Hormonal/Contracep tive Status: ? Progesterone ? SPECIMEN ADEQUACY ? Satisfactory for Evaluation - transformation zone component present GENERAL CATEGORIZATION ? Negative for Intraepithelial Lesion or Malignancy ? Document reviewed and electronically signed by: ? Leticia Barry, SCT(ASCP) ? Report Date: ??08/26/2005 13:53 End of Report [facility] 08/21/2005 08/25/2005 us Norm Washington MD PATHOLOGY ORDERABLES Final Resu lt [facility] [address] [place] [address] documented in this encounter Visit Diagnoses Not on filedocumented in this encounter
--- OUTSIDE RECORDS SUMMARY | 2024-06-23 18:25 | XMS_ITS | Encounter Summary ---
Author Organization [facility] Address [address] [place] [address] Care Team Providers Care Rfid Engineer Name Role Phone Unavailable Primary Care Provider Unavailabl e Encounter Details Date Type Department Care Team (Late st Contact Info) Description 03/25/2003 Results Only [facility] - Maple conversion [address] [place] [address] Norm Washington MD [address] [place] [address] Social History Tobacco Use Types [...] Priority Date/Time Associated Diagnosis Comments SURGICAL PATHOLOGY Routine 03/25/2003 0:00 EDT documented in this encounter Results * SURGICAL PATHOLOGY (03/25/2003 0:00 EDT) Pathology Report: SURGICAL PATHOLOGY REPORT Reports generated via electronic interface contain original data; however they are lacking the format of the original report. Caution should be taken when reading/interpreti ng unformatted reports. Name: ? KAROLINA RIVERS ? Accession #: ? [id number] ? : ? 1975 (Age: 27) ??F ? Collect Date: ? 03/25/2003 ? Location: ? [facility] ? Receive Date: ? 03/26/2003 ? Provider: NORM WASHINGTON MD Copy to: APRIL FINN MD ? Final Pathologic Diagnosis: A. ?Fallopian tube, left, tubal ligation: 1. ?Segment of fallopian tube with paratubal cyst. 2. ?Complete cross-sections identified. B. ?Fallopian tube, right, tubal ligation: 1. ?Segment of fallopian tube with paratubal cysts. 2. ?Complete cross-sections identified. C. ?Ovary, left, excisional biopsy: 1. 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 ??See comment. 2. ?Fibrous serosal adhesions. Comment: ? Clearing Distribution Clerk sections of (C) have been reviewed by Dr. Melissa Bui in consultation. ??Sections of (C) demonstrate a portion of ovary containing a tumor with a vaguely lobulated pattern of cellular zones by paucicellular, variably sclerotic and edematous fibrous tissue. ??Focal calcification is identified. ??The cellular zones are comprised of polygonal cytologically bland cells without mitoses or significant pleomorphism. ??Focal eosinophilic cells with features of Leydig cells are present near the hilus (A1). ??The histologic features are compatible with sclerosing stromal tumor. ??According to the literature, all sclerosing stromal tumors, to date, have pursued a benign course. ??(Dr. Lyons) ? Document reviewed and electronically signed by: HEIDI LYONS MD Report ??Date: 03/29/2003 12:35 By the signature above, the attending physician certifies that he/she has personally conducted a gross and/or microscopic examination of the described specimens and rendered or confirmed the above diagnosis. Specimen(s) Received: A. ?Left fallopian tube B. ?Right fallopian tube C. ?Mass on left ovary Clinical History: ? Previous Gross Description: ? Received in formalin labeled Mikie and #1 left fallopian tube is a portion of fallopian tube including the fimbriated end which measures 3.0 cm in length and 0.5 cm in average thickness. ??The serosa is casas-pink, smooth and glistening. ??There is a 0.9 cm clear fluid-filled cyst on the serosa of the distal end of the tube. ??The lining of the cyst is smooth. ??Clearing Distribution Clerk sections of the fallopian tube and cyst are submitted as (A). Received in formalin labeled Mikie and #2 right fallopian tube is a portion of fallopian tube including the fimbriated end which measures 2.3 cm in length and 0.6 cm in average diameter. ??The serosa is smooth, glistening and casas-pink. ??Two clear serosal fluid-filled cysts measuring 0.6 and 0.3 cm in diameter lie adjacent to the distal end of the tube. ??The cysts are lined by smooth epithelium. ??Clearing Distribution Clerk sections of the fallopian tube are submitted as (B). Received in formalin labeled Mikie and #3 mass on left ovary is a white-pink firm ovoid tissue fragment which measures 2.2 x 1.8 x 1.1 cm and weighs 3.7 grams. ??One surface of the mass is cut. ??The remaining surface is smooth, glistening and slightly irregular. ??The external surface is inked black. Sectioning of the mass reveals a casas-white fibrous whorled cut surface. Clearing Distribution Clerk sections are submitted as (C). ??The remainder of the specimen is submitted entirely in (C2) ??C5). ??(Dr. Maher)/[facility] End of Report [facility] 03/25/2003 03/26/2003 15: 24 EST us Norm Washington MD PATHOLOGY ORDERABLES Final Resu lt [facility] [address] [place] [address] documented in this encounter Visit Diagnoses Not on filedocumented in this encounter
--- OUTSIDE RECORDS SUMMARY | 2024-06-23 18:25 | XMS_ITS | Encounter Summary ---
Author Organization [facility] Address [address] [place] [address] Care Team Providers Care Sharples Machine Operator Name Role Phone Unavailable Primary Care Provider Unavailabl e Encounter Details Date Type Department Care Team (Late st Contact Info) Description 08/30/2006 Results Only [facility] - Maple conversion [address] [place] [address] Norm Washington MD [address] [place] [address] Social History Tobacco Use Types [...] Priority Date/Time Associated Diagnosis Comments CYTOPATHOLOGY Routine 08/30/2006 0:00 EDT documented in this encounter Results * CYTOPATHOLOGY (08/30/2006 0:00 EDT) Pathology Report: CYTOPATHOLOGY REPORT Reports generated via electronic interface contain original data; however they are lacking the format of the original report. Caution should be taken when reading/interpreti ng unformatted reports. Name: ? KAROLINA RIVERS ? Accession #: ? [id number] : ? 1975 (Age: 31) ??F ?Collect Date: ? 08/30/2006 Location: ? [facility] ? Receive Date: ? 08/31/2006 Provider: ?NORM WASHINGTON MD Copy to: ? Specimen/Source: ?ThinPrep Pap Test, Cervix/Endocervix, processed on [employer] ThinPrep Imaging System, with manual evaluation Last Menstrual Period: ? 08/17/06 Menstrual/Pregnanc y Status: ? Menorrhagia Hormonal/Contracep tive Status: ? Yes: Aygestin ? SPECIMEN ADEQUACY ? Satisfactory for Evaluation - transformation zone component present GENERAL CATEGORIZATION ? Negative for Intraepithelial Lesion or Malignancy ? Document reviewed and electronically signed by: ? ABELINO Milton(ASCP) ? Report Date: ??09/02/2006 10:22 End of Report [facility] 08/30/2006 08/31/2006 us Norm Washington MD PATHOLOGY ORDERABLES Final Resu lt [facility] [address] [place] [address] documented in this encounter Visit Diagnoses Not on filedocumented in this encounter
--- OUTSIDE RECORDS SUMMARY | 2024-06-23 18:25 | XMS_ITS | Encounter Summary ---
Author Organization [facility] Address [address] [place] [address] Care Team Providers Care Flanging Machine Operator Name Role Phone Unavailable Primary Care Provider Unavailabl e Encounter Details Date Type Department Care Team (Late st Contact Info) Description 08/02/2003 Results Only [facility] - Maple conversion [address] [place] [address] Rocio Maloney, AMY Social History Tobacco Use Types Packs/Day Years [...] Priority Date/Time Associated Diagnosis Comments CYTOPATHOLOGY Routine 08/02/2003 0:00 EST documented in this encounter Results * CYTOPATHOLOGY (08/02/2003 0:00 EST) Pathology Report: CYTOPATHOLOGY REPORT Reports generated via electronic interface contain original data; however they are lacking the format of the original report. Caution should be taken when reading/interpreti ng unformatted reports. Name: ? KAROLINA RIVERS ? Accession #: ? [id number] : ? 1975 (Age: 28) ??F ?Collect Date: ? 08/02/2003 Location: ? [facility] ? Receive Date: ? 08/06/2003 Provider: ?ROCIO MALONEY CONTACT CENTER ENGINEER Copy to: ? Specimen/Source: ?ThinPrep Pap Test, Cervix/Endocervix Last Menstrual Period: ? 07/16/03 Other: ? Additional clinical information: Pap 07/17/02 nl. ? SPECIMEN ADEQUACY ? Satisfactory for Evaluation - transformation zone component present GENERAL CATEGORIZATION ? Negative for Intraepithelial Lesion or Malignancy ? Document reviewed and electronically signed by: ? Leticia Barry, SCT(ASCP) ? Report Date: ??08/09/2003 10:22 End of Report [facility] 08/02/2003 08/06/2003 us Rocio Maloney NP PATHOLOGY ORDERABLES Final Re sult [facility] [address] [place] [address] documented in this encounter Visit Diagnoses Not on filedocumented in this encounter
--- OUTSIDE RECORDS SUMMARY | 2024-06-23 18:25 | XMS_ITS | Encounter Summary ---
Author Organization [facility] Address [address] [place] [address] Care Team Providers Care Custom Feed Corn Operator Name Role Phone Unavailable Primary Care Provider Unavailabl e Encounter Details Date Type Department Care Team (Late st Contact Info) Description 11/03/1999 Results Only [facility] - Maple conversion [address] [place] [address] Shay Davis MD [address] [place], [place] [id number] Social History Tobacco Use Types Packs/Day Years [...] Date/Time Associated Diagnosis Comments SURGICAL PATHOLOGY Routine 11/03/1999 0:00 EDT documented in this encounter Results * SURGICAL PATHOLOGY (11/03/1999 0:00 EDT) Pathology Report: SURGICAL PATHOLOGY REPORT Reports generated via electronic interface contain original data; however they are lacking the format of the original report. Caution should be taken when reading/interpreti ng unformatted reports. Name: ? KAROLINA RIVERS ? Accession #: ? [id number] ? : ? 1975 (Age: 24) ??F ? Collect Date: ? 11/03/1999 ? Location: ? [facility] ? Receive Date: ? 11/04/1999 ? Provider: SHAY DAVIS MD Copy to: KAYLA WARD MD ? Final Pathologic Diagnosis: ? Soft tissue nodule, previous incision site, excision: - Most consistent with hypertrophic scar. ??See comment. Comment: ? This is a poorly demarcated lesion characterized by proliferation of myofibroblasts and small caliber vessels. ??The fibrosis extends into the surrounding adipose tissue. ??No cytologic atypia or mitoses are identified. ??In light of a history of previous excision, this lesion most likely represents a scar tissue showing hypertrophic changes. ??No evidence for endometriosis is identified. ??(Dr. Acosta)/[facility] Document reviewed and electronically signed by: LANCE ACOSTA MD Report ??Date: 11/06/1999 16:20 By the signature above, the attending physician certifies that he/she has personally conducted a gross and/or microscopic examination of the described specimens and rendered or confirmed the above diagnosis. Specimen(s) Received: ? Incisional nodule Clinical History: ? Nodule from C/S scar with cyclic pain; R/O endometriosis Gross Description: ? Received in formalin labelled Pearson is a casas-yellow to white firm fibrous 2.0 x 1.5 x 0.4 cm nodule. ??The specimen is inked and entirely submitted in one cassette. ??(Andrews Armstrong)/[facility] End of Report [facility] 11/03/1999 11/04/1999 9:3 8 EDT us Shay Davis MD PATHOLOGY ORDERABLES Final Resul t [facility] [address] [place] [address] documented in this encounter Visit Diagnoses Not on filedocumented in this encounter
--- OUTSIDE RECORDS SUMMARY | 2024-06-23 18:25 | XMS_ITS | Encounter Summary ---
Author Organization [facility] Address [address] [place] [address] Care Team Providers Care Hydro Plant Operator Name Role Phone Unavailable Primary Care Provider Unavailabl e Encounter Details Date Type Department Care Team (Late st Contact Info) Description 04/24/2008 Before PRISM Converted Visit (Maple) [facility] - Maple conversion [address] [place] [address] Garland Pettit MD [address] [place] [address] [place] [address] Social History Tobacco Use Types Packs/Day Years [...] Date/Time Associated Diagnosis Comments SURGICAL PATHOLOGY Routine 04/24/2008 0:00 EST documented in this encounter Results * SURGICAL PATHOLOGY (04/24/2008 0:00 EST) Pathology Report: SURGICAL PATHOLOGY REPORT ? Reports generated via electronic interface contain original data; ? however they are lacking the format of the original report. ? Caution should be taken when reading/interpreti ng unformatted reports. ? Name: ? TITA, KAROLINA L ? Accession #: ? [id number] ? : ? 1975 (Age: 32) ??F ? Collect Date: ? 04/24/2008 ? Location: ? [facility] ? Receive Date: ? 04/25/2008 ? Provider: GARLAND PETTIT MD ? Copy to: APRIL FINN MD ? Final Pathologic Diagnosis: ? Soft tissue, right dorsal wrist, excision: ? - ??Consistent with ganglion cyst. ? Document reviewed and electronically signed by: ? Diana Rodriguez, ? Report ??Date: 04/27/2008 14:57 ? By the signature above, the attending physician certifies that he/she has ? personally conducted a gross and/or microscopic examination of the described ? specimens and rendered or confirmed the above diagnosis. ? Specimen(s) Received: ? Right dorsal wrist ganglion ? Clinical History: ? Symptomatic right dorsal wrist ganglion ? Gross Description: ? Received in formalin labelled [place] and right dorsal wrist ganglion ?? are six daley-white, firm, fibrous irregular soft tissue fragments measuring 1.5 x 1.0 x 0.3 cm in aggregate. ??The specimen is entirely submitted in one cassette following filtration. ??(M. Armstrong)/mpl ? End of Report ? [facility] 04/24/2008 04/25/2008 9:2 9 EST us Garland Pettit MD PATHOLOGY ORDERABLES Final Result Performing Organization Address City/State/[facility] Co de Phone Number [facility] [address] [place] [address] documented in this encounter Visit Diagnoses Not on filedocumented in this encounter
--- OUTSIDE RECORDS SUMMARY | 2024-06-23 18:25 | XMS_ITS | Encounter Summary ---
Author Organization [facility] Address [address] [place] [address] Care Team Providers Care Production Estimator Name Role Phone Melanie Nobles Primary Care Provider Unavailab le Encounter Details Date Type Department Care Team (Latest Contact Info) Description 03/28/2015 12:26 EDT - 03/28/2015 23:59 EDT Hospital Encounter [address] [address] Unknown, Provider, MD Discharge Disposition: Home or Self Care Social History Tobacco Use Types Packs/Day Years Used Date Smoking Tobacco: Never Assessed Comments Unknown Sex and Gender Information Value Date Recorded Sex Assigned at Not on file Legal Sex Female 18:01 EST Gender Identity Not on file Sexual Orientation Not on file documented as of this encounter Discharge Disposition Disposition Code Departure Means Destination Home or Self Retirement documented in this encounter Plan of Treatment Not on file documented as of this encounter Visit Diagnoses Not on filedocumented in this encounter Care Teams Production Estimator Relationship Specialty Start Date End Date Melanie Nobles PA PCP - General 03/25/15 03/09/17 documented as of this encounter
--- OUTSIDE RECORDS SUMMARY | 2024-06-23 18:25 | XMS_ITS | Encounter Summary ---
Author Organization [facility] Address [address] [place] [address] Care Team Providers Care Group Therapist Name Role Phone Unavailable Primary Care Provider Unavailabl e Encounter Details Date Type Department Care Team (Late st Contact Info) Description 03/14/2015 Results Only [facility] [phone] Vee Cheng MD [address] [place] [address] Social History Tobacco Use Types Packs/Day Years [...] Date/Time Associated Diagnosis Comments SURGICAL PATHOLOGY Routine 03/14/2015 9:36 EDT documented in this encounter Results * SURGICAL PATHOLOGY (03/14/2015 9:36 EDT) Pathology Report: SURGICAL PATHOLOGY REPORT Reports generated via electronic interface contain original data; however they are lacking the format of the original report. Caution should be taken when reading/interpret ing unformatted reports. Name: ? KAROLINA ABDALLA ? Accession #: ? [id number] ? : ? 1975 (Age: 39) ??F ? Collect Date: ? 03/14/2015 ? Location: ? [facility] ? Receive Date: ? 03/15/2015 ? Provider: VEE CHENG MD Copy to: GORDO BLANCHARD ? Final Pathologic Diagnosis: ENDOMETRIUM, BIOPSY: - Inactive endometrium with extensive glandular and stromal breakdown. - Scant fragments of benign endocervical tissue. Comment: Deeper sections have been examined on blocks (1) and (2). ?? Document reviewed and electronically signed by: KIARA BURGESS MD Report ??Date: 03/19/2015 15:55 By the signature above, the attending physician certifies that he/she has personally conducted a gross and/or microscopic examination of the described specimens and rendered or confirmed the above diagnosis. Specimen(s) Received: Endometrial bx Clinical History: Menorrhagia Gross Description: ? Received formalin labelled with proper patient identification (initials S, M) and endometrium is an aggregate of casas-daley membranous tissue and hemorrhage (1.5 x 0.8 x 0.5 cm). The specimen is submitted entirely in and 03/15/2015 10:54 AM End of Report [facility] 03/14/2015 9:36 EDT 03/15/2015 9:36 EDT us Vee Cheng MD PATHOLOGY ORDERABLES Final Res ult [facility] [address] [place] [address] documented in this encounter Visit Diagnoses Not on filedocumented in this encounter
--- OUTSIDE RECORDS SUMMARY | 2024-06-23 18:25 | XMS_ITS | Encounter Summary ---
Author Organization [facility] Address [address] [place] [address] Care Team Providers Care Principal Trainer Name Role Phone Unavailable Primary Care Provider Unavailabl e Encounter Details Date Type Department Care Team (Late st Contact Info) Description 06/02/2001 Results Only [facility] - Maple conversion [address] [place] [address] Rocio Maloney, AMY Social History Tobacco Use [...] Priority Date/Time Associated Diagnosis Comments CYTOPATHOLOGY Routine 06/02/2001 0:00 EST documented in this encounter Results * CYTOPATHOLOGY (06/02/2001 0:00 EST) Pathology Report: CYTOPATHOLOGY REPORT Reports generated via electronic interface contain original data; however they are lacking the format of the original report. Caution should be taken when reading/interpreti ng unformatted reports. Name: ? KAROLINA RIVERS ? Accession #: ? [id number] : ? 1975 (Age: 25) ??F ?Collect Date: ? 06/02/2001 Location: ? [facility] ? Receive Date: ? 06/06/2001 Provider: ?ROCIO MALONEY CAN FILLER Copy to: ? Specimen/Source: ?ThinPrep Pap Test, Cervix/Endocervix Last Menstrual Period: ? 05/10/01 Hormonal/Contracep tive Status: ? Oral contraceptives ? SPECIMEN ADEQUACY ? Satisfactory for Evaluation - transformation zone component present GENERAL CATEGORIZATION ? Negative for Intraepithelial Lesion or Malignancy ? Document reviewed and electronically signed by: ? Kelsey Ward, ??SCT(ASCP) ? Report Date: ??06/08/2001 07:46 End of Report [facility] 06/02/2001 06/06/2001 us Rocio Maloney NP PATHOLOGY ORDERABLES Final Re sult [facility] [address] [place] [address] documented in this encounter Visit Diagnoses Not on filedocumented in this encounter
--- OUTSIDE RECORDS SUMMARY | 2024-06-23 18:25 | XMS_ITS | Encounter Summary ---
Author Organization [facility] Address [address] [place] [address] Care Team Providers Care Ceramic Coater Machine Name Role Phone Unavailable Primary Care Provider Unavailabl e Encounter Details Date Type Department Care Team (Latest Contact Info) Description 03/14/2015 9:06 EDT - 03/14/2015 23:59 EDT Hospital Encounter [address] [address] Unknown, Provider, MD Discharge Disposition: Home or [...] Code Departure Means Destination Home or Self Intermediate documented in this encounter Plan of Treatment Not on file documented as of this encounter Visit Diagnoses Not on filedocumented in this encounter
--- OUTSIDE RECORDS SUMMARY | 2024-06-23 18:25 | XMS_ITS | Encounter Summary ---
Author Organization [facility] Address [address] [place] [address] Care Team Providers Care Supervisor Reclamation Name Role Phone Unavailable Primary Care Provider Unavailabl e Encounter Details Date Type Department Care Team (Late st Contact Info) Description 07/17/2002 Results Only [facility] - Maple conversion [address] [place] [address] Rocio Maloney, AMY Social History Tobacco Use [...] Priority Date/Time Associated Diagnosis Comments CYTOPATHOLOGY Routine 07/17/2002 0:00 EST documented in this encounter Results * CYTOPATHOLOGY (07/17/2002 0:00 EST) Pathology Report: CYTOPATHOLOGY REPORT Reports generated via electronic interface contain original data; however they are lacking the format of the original report. Caution should be taken when reading/interpreti ng unformatted reports. Name: ? KAROLINA RIVERS ? Accession #: ? [id number] : ? 1975 (Age: 27) ??F ?Collect Date: ? 07/17/2002 Location: ? [facility] ? Receive Date: ? 07/18/2002 Provider: ?ROCIO MALONEY EMPLOYEE RELATIONS DIRECTOR Copy to: ? Specimen/Source: ?ThinPrep Pap Test, Cervix/Endocervix Last Menstrual Period: ? 07/02/02 ? SPECIMEN ADEQUACY ? Satisfactory for Evaluation - transformation zone component present GENERAL CATEGORIZATION ? Negative for Intraepithelial Lesion or Malignancy ? Document reviewed and electronically signed by: ? ABELINO Milton(ASCP) ? Report Date: ??07/19/2002 11:11 End of Report [facility] 07/17/2002 07/18/2002 us Rocio Maloney NP PATHOLOGY ORDERABLES Final Re sult [facility] [address] [place] [address] documented in this encounter Visit Diagnoses Not on filedocumented in this encounter
--- OUTSIDE RECORDS SUMMARY | 2024-06-23 18:25 | XMS_ITS | Encounter Summary ---
Author Organization [facility] Address [address] [place] [address] Care Team Providers Care Contracts Specialist Name Role Phone Unavailable Primary Care Provider Unavailabl e Encounter Details Date Type Department Care Team (Late st Contact Info) Description 05/20/2000 Results Only [facility] - Maple conversion [address] [place] [address] Rocio Maloney, AMY Social History Tobacco Use [...] Priority Date/Time Associated Diagnosis Comments CYTOPATHOLOGY Routine 05/20/2000 0:00 EST documented in this encounter Results * CYTOPATHOLOGY (05/20/2000 0:00 EST) Pathology Report: CYTOPATHOLOGY REPORT Reports generated via electronic interface contain original data; however they are lacking the format of the original report. Caution should be taken when reading/interpreti ng unformatted reports. Name: ? KAROLINA RIVERS ? Accession #: ? [id number] : ? 1975 (Age: 24) ??F ?Collect Date: ? 05/20/2000 Location: ? [facility] ? Receive Date: ? 05/21/2000 Provider: ?ROCIO MALONEY ORDER ENTRY SPECIALIST Copy to: ? Specimen/Source: ?ThinPrep Pap Test, Vagina/Cervix/Endo cervix Last Menstrual Period: ? 05/11/00 Hormonal/Contracep tive Status: ? Oral contraceptives ? SPECIMEN ADEQUACY ? Satisfactory for evaluation. GENERAL CATEGORIZATION ? Within Normal Limits ? Document reviewed and electronically signed by: ? QUE Gonzales(ASCP) ? Report Date: ??05/26/2000 13:36 End of Report [facility] 05/20/2000 05/21/2000 us Rocio Maloney NP PATHOLOGY ORDERABLES Final Re sult [facility] [address] [place] [address] documented in this encounter Visit Diagnoses Not on filedocumented in this encounter
--- OUTSIDE RECORDS SUMMARY | 2024-06-23 18:25 | XMS_ITS | Encounter Summary ---
Author Organization [facility] Address [address] [place] [address] Care Team Providers Care Telemarketing Supervisor Name Role Phone Unavailable Primary Care Provider Unavailabl e Encounter Details Date Type Department Care Team (Late st Contact Info) Description 08/15/2004 Results Only [facility] - Maple conversion [address] [place] [address] Norm Washington MD [address] [place] [address] Social History Tobacco Use Types [...] Priority Date/Time Associated Diagnosis Comments CYTOPATHOLOGY Routine 08/15/2004 0:00 EST documented in this encounter Results * CYTOPATHOLOGY (08/15/2004 0:00 EST) Pathology Report: CYTOPATHOLOGY REPORT Reports generated via electronic interface contain original data; however they are lacking the format of the original report. Caution should be taken when reading/interpreti ng unformatted reports. Name: ? KAROLINA RIVERS ? Accession #: ? [id number] : ? 1975 (Age: 29) ??F ?Collect Date: ? 08/15/2004 Location: ? [facility] ? Receive Date: ? 08/19/2004 Provider: ?NORM WASHINGTON MD Copy to: ? Specimen/Source: ?ThinPrep Pap Test, Cervix/Endocervix Last Menstrual Period: ? 07/29/04 Menstrual/Pregnanc y Status: ? Menorrhagia ? SPECIMEN ADEQUACY ? Satisfactory for Evaluation - transformation zone component present GENERAL CATEGORIZATION ? Negative for Intraepithelial Lesion or Malignancy ? Document reviewed and electronically signed by: ? Leticia Barry, SCT(ASCP) ? Report Date: ??08/21/2004 10:31 End of Report [facility] 08/15/2004 08/19/2004 us Norm Washington MD PATHOLOGY ORDERABLES Final Resu lt [facility] [address] [place] [address] documented in this encounter Visit Diagnoses Not on filedocumented in this encounter
--- OUTSIDE RECORDS SUMMARY | 2024-06-23 18:25 | XMS_ITS | Encounter Summary ---
Author Organization [facility] Address [address] [place] [address] Care Team Providers Care Air Tester Name Role Phone Unavailable Primary Care Provider Unavailabl e Encounter Details Date Type Department Care Team (Late st Contact Info) Description 06/04/2014 Results Only [facility] Laboratory Services - [facility] [place] [address] [place], [place] [address] Malu Conteh, [facility] [address] [place] [address] [place] [phone] Social History Tobacco Use Types Packs/Day Years [...] Procedure Name Priority Date/Time Associated Diagnosis Comments PAP TEST- RESULT ONLY Routine 06/04/2014 0:00 EST documented in this encounter Results * PAP TEST- RESULT ONLY (06/04/2014 0:00 EST) Pathology Report: CYTOPATHOLOGY REPORT Reports generated via electronic interface contain original data; however they are lacking the format of the original report. Caution should be taken when reading/interpreti ng unformatted reports. Name: ? KAROLINA IRVERS ? Accession #: ? [id number] ? : ? 1975 (Age: 38) ??F ?Collect Date: ? 06/04/2014 ? Location: ? [facility] ? Receive Date: ? 06/04/2014 ? Provider: MALU CONTEH ADJUNCT PSYCHOLOGY PROFESSOR Copy to: GORDO BLANCHARD ? Final Report SPECIMEN ADEQUACY ? Satisfactory for Evaluation - transformation zone component present GENERAL CATEGORIZATION ? Negative for Intraepithelial Lesion or Malignancy ?? Last Menstrual Period: 05/22/14 Specimen/Source: ??Pap Test, Cervix/Endocervix, ThinPrep Imaging System with manual evaluation Document reviewed and electronically signed by: ? Nae Fields, CT(ASCP) ? Report ??Date: 06/06/2014 10:33 HPV with Pap Test ? Date Ordered: ? 06/06/2014 ? Status: ?? Signed Out ?Date Complete: ? 06/08/2014 ? By: ??System Interface ? Date Reported: ? 06/08/2014 ? Interpretation RESULT: Negative for HPV. No E6 or E7 mRNA is detected from HPV types 16,18,31,33,35, 39,45,51,52,56,58, 59,66, and 68 by mechanical service specialist mediated amplification. Comments Document reviewed and electronically signed by: ? System Interface ? Report date: 06/08/2014 By the signature above, the attending physician certifies that he/she has personally conducted a gross and/or microscopic examination of the described specimens and rendered or confirmed the above diagnosis. End of Report [facility] 06/04/2014 06/04/2014 Malu Conteh ADJUNCT PSYCHOLOGY PROFESSOR PATHOLOGY ORDERABLES Final R esult [facility] [address] [place] [address] documented in this encounter Visit Diagnoses Not on filedocumented in this encounter
--- OUTSIDE RECORDS SUMMARY | 2024-06-23 18:25 | XMS_ITS | Encounter Summary ---
Author Organization [facility] Address [address] [place] [address] Care Team Providers Care Traveling Missionary Name Role Phone Unavailable Primary Care Provider Unavailabl e Encounter Details Date Type Department Care Team (Late st Contact Info) Description 10/16/2010 Results Only [facility] Laboratory Services - [facility] ([facility]) [address] [place], [place] [id number] Malu Conteh, [facility] [address] [place] [address] [place] [phone] Social History Tobacco Use Types Packs/Day Years [...] Diagnosis Comments PAP TEST- RESULT ONLY Routine 10/16/2010 0:00 EDT documented in this encounter Results * PAP TEST- RESULT ONLY (10/16/2010 0:00 EDT) Pathology Report: CYTOPATHOLOGY REPORT ? Reports generated via electronic interface contain original data; ? however they are lacking the format of the original report. ? Caution should be taken when reading/interpreti ng unformatted reports. ? Name: ? TITA, KAROLINA L ? Accession #: ? [id number] ? : ? 1975 (Age: 35) ??F ?Collect Date: ? 10/16/2010 ? Location: ? [facility] ? Receive Date: ? 10/17/2010 ? Provider: MALU ROXANNA INDUSTRIAL ENGINEERING TECHNOLOGIST ? Copy to: ? Final Report ? SPECIMEN ADEQUACY ? Satisfactory for Evaluation ? - transformation zone component present ? GENERAL CATEGORIZATION ? Negative for Intraepithelial Lesion or Malignancy ? Last Menstural Period: 5/7/11 ? Specimen/Source: ??Pap Test, Cervix/Endocervix, ThinPrep Imaging System with ? manual evaluation ? Document reviewed and electronically signed by: ? Hong Tong CT(ASCP) ? Report ??Date: 10/22/2010 10:55 ? HPV with Pap Test ? Date Ordered: ? 10/22/2010 ? Status: ?? Signed Out ?Date Complete: ? 10/27/2010 ? By: ??System Interface ? Date Reported: ? 10/27/2010 ? Interpretation ? RESULT: Negative for HPV types 16, 18, 31, 33, 35, 39, 45, 51, 52, ? 56, 58, 59, and 68. ? Comments ? Document reviewed and electronically signed by: ? System Interface ? Report date: 10/27/2010 ? By the signature above, the attending physician certifies that he/she has ? personally conducted a gross and/or microscopic examination of the described ? specimens and rendered or confirmed the above diagnosis. ? End of Report ? [facility] 10/16/2010 10/17/2010 us Malu Conteh INDUSTRIAL ENGINEERING TECHNOLOGIST PATHOLOGY ORDERABLES Final R esult [facility] [address] [place] [address] documented in this encounter Visit Diagnoses Not on filedocumented in this encounter
--- OUTSIDE RECORDS SUMMARY | 2024-06-23 18:25 | XMS_ITS | Encounter Summary ---
Author Organization [facility] Address [address] [place] [address] Care Team Providers Care Splicer Machine Operator Name Role Phone Gordo Nobles Primary Care Provider Unavailab le Encounter Details Date Type Department Care Team (Late st Contact Info) Description 03/28/2015 Results Only [facility] [phone] Vee Cheng MD [address] [place], [place] [phone] Social History Tobacco Use Types Packs/Day Years [...] Date/Time Associated Diagnosis Comments SURGICAL PATHOLOGY Routine 03/28/2015 19 :52 EDT documented in this encounter Results * SURGICAL PATHOLOGY (03/28/2015 19:52 EDT) Pathology Report: SURGICAL PATHOLOGY REPORT Reports generated via electronic interface contain original data; however they are lacking the format of the original report. Caution should be taken when reading/interpret ing unformatted reports. Name: ? KAROLINA ABDALLA ? Accession #: ? [id number] ? : ? 1975 (Age: 39) ??F ? Collect Date: ? 03/28/2015 ? Location: ? [facility] ? Receive Date: ? 03/29/2015 ? Provider: VEE CHENG MD Copy to: GORDO BLANCHARD ? Final Pathologic Diagnosis: A. UTERUS AND CERVIX, HYSTERECTOMY: - ??Endometrium: ? - ??Secretory. - ??Myometrium: ? - ??Adenomyosis. - ??Cervix: ? - ??No pathologic features. - ??Serosa: ? - ??Adhesions. B. ??FALLOPIAN TUBES, BILATERAL SALPINGECTOMY: ? - ??Status post ligation. Document reviewed and electronically signed by: HEIDI DÍAZ MD Report ??Date: 04/02/2015 15:16 By the signature above, the attending physician certifies that he/she has personally conducted a gross and/or microscopic examination of the described specimens and rendered or confirmed the above diagnosis. Specimen(s) Received: A. ??Uterus, suture on anterior uterus B. ??Right and left fallopian tubes Clinical History: Abnormal uterine bleeding; anemia Gross Description: A. ?Received in formalin labelled with proper patient identification (initials S, M) and uterus, suture on anterior uterus is a previously incised uterus and cervix (130 g, 10.2 cm cervix to fundus x 5.7 cm cornu to cornu x 4.3 cm anterior to posterior), without attached adnexa. A suture designates the anterior aspect. ??The specimen is previously bisected into right and left halves. ? The uterine serosa is pink-casas and glistening. The endometrium is casas-red, focally irregular, and has a thickness of 0.1-0.5 cm. The myometrium is daley-white and ranges from 1.4-1.8 cm in thickness. No nodules are identified within the myometrium. The ectocervix is daley-white and smooth, and the endocervix is pink with a herringbone pattern. ? Mold Design Engineer sections are submitted as follows: BLOCK BROWN A1- ??anterior cervix A2- ??posterior cervix A3-A4- ??anterior endomyometrium A5-A7- ??posterior endomyometrium A8- ??serosa, fundic region and posterior aspect B. ?Received in formalin labelled with proper patient identification (initials S, M) and right and left fallopian tubes are two previously interrupted tubular soft tissues (3.8 cm in length and ranging from 0.6-1.3 cm in diameter; 3.5 cm in length and ranging from 0.7-0.9 cm in diameter), without associated ovaries. ??The serosa is casas-purple and smooth. ??Sectioning reveals a white cut surface with a patent lumen throughout. ??Mold Design Engineer sections are submitted in B1 and B2 longer segment and B3 shorter segment. Nettie Armstrong 04/01/2015 9:12 AM End of Report [facility] 03/28/2015 19:5 2 EDT 03/29/2015 19:52 EDT us Vee Cheng MD PATHOLOGY ORDERABLES Final Res ult [facility] [address] [place] [address] documented in this encounter Visit Diagnoses Not on filedocumented in this encounter Care Teams Splicer Machine Operator Relationship Specialty Start Date End Date Gordo Nobles PA PCP - General 03/25/15 03/09/17 documented as of this encounter
--- OUTSIDE RECORDS SUMMARY | 2024-06-23 18:25 | XMS_ITS | Encounter Summary ---
Author Organization [facility] Address [address] [place] [address] Care Team Providers Care Band Cutter Name Role Phone Unavailable Primary Care Provider Unavailabl e Encounter Details Date Type Department Care Team (Late st Contact Info) Description 09/23/2007 Results Only [facility] - Maple conversion [address] [place] [address] Malu Conteh, [facility] [address] [place] [address] [place] [phone] Social History Tobacco Use Types Packs/Day Years [...] Procedure Name Priority Date/Time Associated Diagnosis Comments HPV DETECTION, HIGH RISK TYPES Routine 09/23/2007 8:50 EDT CYTOPATHOLOGY Routine 09/23/2007 0:00 EDT documented in this encounter Results * HUMAN PAPILLOMA VIRUS DNA TEST (09/23/2007 8:50 EDT) Specimen Description Cervix, ThinPrep vial [facility] Result Negative for HPV types 16, 18, 31, 33, 35, 39, 45, 51, 52, 56, 58, 59, and 68. [facility] Report Status Final [id number] [facility] 09/23/2007 8:50 EDT 09/29/2007 8:53 EDT Malu Conteh CHEESE WRAPPER MICROBIOLOGY - GENERAL ORDER DEANNE Final Result [facility] [address] [place] [address] * CYTOPATHOLOGY (09/23/2007 0:00 EDT) Pathology Report: CYTOPATHOLOGY REPORT Reports generated via electronic interface contain original data; however they are lacking the format of the original report. Caution should be taken when reading/interpreti ng unformatted reports. Name: ? LANCE RIVERSDITH Miguelina ? Accession #: ? [id number] : ? 1975 (Age: 32) ??F ?Collect Date: ? 09/23/2007 Location: ? [facility] ? Receive Date: ? 09/23/2007 Provider: ?MALU CONTEH CHEESE WRAPPER Copy to: ? Specimen/Source: ?ThinPrep Pap Test, Cervix/Endocervix, processed on Meme ThinPrep Imaging System, with manual evaluation Last Menstrual Period: ? 09-19-07 Other: ? HPVDX - HPV testing requested regardless of diagnosis on current ThinPrep Pap test. ? SPECIMEN ADEQUACY ? Satisfactory for Evaluation - transformation zone component present GENERAL CATEGORIZATION ? Negative for Intraepithelial Lesion or Malignancy ? Document reviewed and electronically signed by: ? Leticia Barry, SCT(ASCP) ? Report Date: ??09/28/2007 11:13 End of Report [facility] 09/23/2007 09/23/2007 us Malu Conteh CHEESE WRAPPER PATHOLOGY ORDERABLES Final R esult Performing Organization Address City/State/[facility] Co de Phone Number [facility] [address] [place] [address] documented in this encounter Visit Diagnoses Not on filedocumented in this encounter
[2024-06-27 22:00] LABS: Calprotectin 90.6 mcg/g
== END 2024-06-23 18:16 | disposition home or self-care (01) ==
LOC: LBN 18:15
PROVIDERS: Visit Provider Internal Medicine
DX: R19.7 Diarrhea, unspecified (principal)
CPT/HCPCS: 83993

== ENCOUNTER 2024-06-29 08:49 | Outpatient (REF) | payer BC, SELFPAY ==
[2024-07-03 15:54] LABS: Cryptosporidium, F Negative (Negative); Giardia Ag, F Negative (Negative)
== END 2024-06-29 08:50 | disposition home or self-care (01) ==
LOC: LBN 08:49
PROVIDERS: Visit Provider Internal Medicine
DX: R19.7 Diarrhea, unspecified (principal)
CPT/HCPCS: 87328; 87329; 87505

== ENCOUNTER 2024-07-24 19:35 | Emergency (ER) | payer BC, SELFPAY ==
[2024-07-24 19:36] VITALS: BP 126/81; PULSE 93; RESP 16; TEMP 36.4; O2SAT 99
--- NOTE | 2024-07-24 20:00 | W.ED.GENAD ---
Discharge Plan Disposition Patient Disposition: Home Condition: Stable Discharge Details Clinical Impression: Otitis media, Lupus Primary Care Provider: Unknown,Unknown ED Provider: Noemy Rashid Home Meds and New Rx's Prescriptions: New amoxicillin 500 mg tablet 1,000 mg PO Q12H 9 Days Qty: 36 0RF No Action magnesium oxide 500 mg capsule 500 mg PO DAILY trazodone 50 mg tablet 25 mg PO QHS PRN ibuprofen 200 mg tablet 800 mg PO ONCE PRN prochlorperazine maleate 5 mg tablet See Rx Instructions PO TID PRN (Reason: headache) Qty: 30 2RF Rx Instructions: Take 1-2 tabs every 8 hours as needed for headaches. Emgality Pen 120 mg/mL pen injector 120 mg subcut QMONTH ipratropium bromide 0.03 % spray,non-aerosol 2 spray intranasal TID Rx Instructions: administer into each nostril multivitamin Capsule 1 cap PO DAILY Patient Comments: 12/03/17 not taking. CM amitriptyline 25 mg tablet 25 mg PO DAILY Qty: 30 3RF duloxetine 30 mg capsule,delayed release(DR/EC) 30 mg PO DAILY hydroxychloroquine 200 mg tablet 200 mg PO DAILY levothyroxine 50 mcg capsule 50 mcg PO DAILY Benlysta 200 mg/mL auto-injector 200 mg subcut QWEEK Rx Instructions: inject into upper thigh or abdomen; rotate sites Discharge Instructions Instructions: Ear Infections in Adults (DC) Additional Instructions: You were seen in the emergency department today for evaluation of ear pain and were found to have a middle ear infection, known as otitis media. You are also likely experiencing a viral upper respiratory infection which has been present for long enough that you do not meet criteria for any of the treatments that we have for things like COVID-19 and influenza. For this reason we have held on viral testing. I have prescribed you amoxicillin, which you will take twice a day for 10 days. Please take all this medication until it is gone, even if you start to feel better. You also need to follow-up with your program director/traffic director to discuss any changes to your immunosuppressive medications, as they may wish to make changes due to your illness. However, at this time I would recommend that you continue to take all your medications as prescribed until you are told otherwise. Please use Tylenol and ibuprofen for management of pain and fever, and please follow-up with your primary care provider in the next few days to discuss this visit and any symptoms that change, worsen, or persist. Thank you for allowing us to be part of your care. HPI General Mode of arrival: ambulatory. Date/Time Provider Initiated Documentation: 07/24/24 19:45. Limitations to Documentation: no limitations. Information obtained by: patient and old records reviewed. HPI Narrative: HPI: This is a 49-year-old female patient with a past medical history significant for lupus who is presenting for evaluation of left ear pain. The patient reports that she has been sick with an upper respiratory virus for approximately a month, states that she has had a runny/stuffy nose, and nonproductive cough, but today developed pain in her left ear. She has not had a fever, has been taking her medications as prescribed, has been using [id number] Motrin for management of her symptoms. The patient reports that she has not been on antibiotics recently, has not sustained trauma and does not have pain around the ear with movement of the ear. Exam: Gen: Awake and alert, in no apparent distress HEENT: Non-icteric sclera, PERRL, no mastoid tenderness or displacement of the pinna bilaterally, right sided TM is clear, left TM is erythematous and bulging with purulence appreciated behind it. No external ear abnormalities. Patient typically wears a hearing aid on that side but reports no changes in her hearing from baseline. Her posterior pharynx is without erythema, exudate, or asymmetry. Neck: Supple Lungs: No apparent respiratory distress, normal respiratory effort. Lung sounds clear and equal bilaterally without wheezing, rhonchi, rales CV: Appears well perfused, heart with regular rate and rhythm Abdomen: Non-distended MSK: Moves 4 extremities without apparent limitation in ROM Skin: Visualized skin without rashes, cyanosis. Neuro: Normal Gait, no obvious focal deficits or facial asymmetry. Speaks in full, clear sentences. Psych: Appropriate for situation. MDM: This is a 49-year-old female patient presenting for evaluation of ear pain. Differential includes but is not limited to otitis media, exam less consistent with otitis externa, mastoiditis. Considered sinusitis. The patient has had a viral upper respiratory type syndrome, but with duration of several weeks she is unlikely to meet criteria for any active viral therapies such as Paxlovid or Tamiflu, and does not have any evidence on physical examination for pneumonia, reactive airway disease exacerbation, etc. I do not see an indication at this time to proceed with laboratory studies or advanced imaging, but will provide the patient with her first dose of amoxicillin for her otitis media, and a prescription for the remainder of her course. At this time, the patient has had a full medical evaluation and is safe for discharge to home. They are hemodynamically stable, ambulatory, and tolerating PO. They are understanding of the follow-up plan and return precautions. They left our facility without incident. Noemy Rashid MD ED Course: Related Data Home Medications ?Medication ?Instructions ?Recorded ?Confirmed magnesium oxide 500 mg capsule 500 mg PO DAILY 01/24/19 07/24/24 ipratropium bromide 21 mcg (0.03 2 spray intranasal TID 04/04/20 07/24/24 %) nasal spray ibuprofen 200 mg tablet 800 mg PO ONCE PRN 04/11/20 07/24/24 multivitamin 1 cap PO DAILY 04/11/20 07/24/24 prochlorperazine maleate 5 mg See Rx Instructions PO TID PRN 04/11/20 07/24/24 tablet headache #30 tabs trazodone 50 mg tablet 25 mg PO QHS PRN 04/11/20 07/24/24 amitriptyline 25 mg tablet 25 mg PO DAILY #30 tab-caps 09/16/20 07/24/24 galcanezumab-gnlm 120 mg/mL 120 mg subcut QMONTH 02/20/21 07/24/24 subcutaneous pen injector (Emgality Pen) duloxetine 30 mg capsule,delayed 30 mg PO DAILY 11/11/21 07/24/24 release hydroxychloroquine 200 mg tablet 200 mg PO DAILY 11/11/21 07/24/24 levothyroxine 50 mcg capsule 50 mcg PO DAILY 11/11/21 07/24/24 amoxicillin 500 mg tablet 1,000 mg (2 x 500 mg) PO Q12H 9 07/24/24 days #36 tabs belimumab 200 mg/mL subcutaneous 200 mg subcut QWEEK 07/24/24 07/24/24 auto-injector (Benlysta) Previous Rx's ?Medication ?Instructions ?Recorded prochlorperazine maleate 5 mg See Rx Instructions PO TID PRN 04/11/20 tablet headache #30 tabs amitriptyline 25 mg tablet 25 mg PO DAILY #30 tab-caps 09/16/20 amoxicillin 500 mg tablet 1,000 mg (2 x 500 mg) PO Q12H 9 07/24/24 days #36 tabs Allergies Allergy/AdvReac Type Severity Reaction Status Date / Time gluten AdvReac Severe Skin Rash Verified 07/24/24 19:42 codeine AdvReac Unknown NAUSEA; Verified 07/24/24 19:42 VOMITING doxycycline AdvReac Unknown HANDS AND Verified 07/24/24 19:42 ARM NUMBNESS General Stated Complaint: EarProblem JAQUAN: 3 Course Vital Signs Vital signs: Vital Signs Temperature 36.4 C 07/24/24 19:36 Pulse 93 H 07/24/24 19:36 Respiratory Rate 16 07/24/24 19:36 Blood Pressure 126/81 07/24/24 19:36 Pulse Oximetry 99 07/24/24 19:36 Temperature 36.4 C 07/24/24 19:36 Temperature Source Oral 07/24/24 19:36 Pulse 93 H 07/24/24 19:36 Respiratory Rate 16 07/24/24 19:36 Blood Pressure 126/81 07/24/24 19:36 Blood Pressure Position Sitting 07/24/24 19:36 Pulse Oximetry 99 07/24/24 19:36 Oxygen Delivery Method Room Air 07/24/24 19:36 Oxygen Flow Rate 0 07/24/24 19:36 Pain Level 5 07/24/24 19:36 Medical Decision Making Quality:SDOH Health Related Social Needs: No Data to Display PFSH All Active Problems (Updated 07/24/24 @ 20:01 by Noemy Rashid MD) Otitis media (Acute) 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 takes Pericolace TID. Sx imroved. Chronic interstitial cystitis (Acute) Constipation (Acute 02/05/15) 07/2015 sx increased after hysterectomy. Rx with Sennakot then increased fiber with glycerine suppository. 09/2015 [facility] referral. Colonoscopy recommended. 11/2015 s/p Colonoscopy/Endoscopy - diagnosed with Celiac disease. Depression with anxiety (Acute 12/02/17) Depressive disorder (Acute) Diarrhea (Acute) BLOODY DIARRHEA 04/08/11. s/p colonoscopy. Dx with IBS. 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 06/26/15 Advised Senakot tab daily. Pt s/p colonoscopy in the past. Nl findings. 07/2015 increased dietary fiber with glycerine suppository daily. Depression Family history of cancer Insomnia Migraine headache without aura Pectus excavatum Postnasal drip Screening for breast cancer Surgical History section X 4 Ligation of fallopian tube Tonsillectomy Vaginal hysterectomy (03/28/15) LAVH. Bilateral salpingectomy for anemia and AUB. 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
[2024-07-24] MEDS: Amoxicillin 500 MG CAP 1000 MG PO ×2 (20:12→20:13)
== END 2024-07-24 20:15 | disposition home or self-care (01) ==
PROVIDERS: Emergency Provider Emergency Medicine
DX: H66.92 Otitis media, unspecified, left ear (principal); M32.9 Systemic lupus erythematosus, unspecified
CPT/HCPCS: 99283

== ENCOUNTER 2024-09-12 01:57 | Outpatient (CLI) | payer BC, SELFPAY ==
--- NOTE | 2024-09-12 | DI.MAMMO_ITS ---
Exam(s) MAMMO SCREENING EXAM: MAMMO SCREENING CLINICAL HISTORY: Screening, Z12.39 TECHNIQUE: Mammograms were interpreted according to the usual protocol including computer analysis w [employer] CAD system, tomosynthesis and C-view imaging. COMPARISON: 2017 through 2022 FINDINGS: The breasts are composed of heterogeneously dense fibroglandular densities, Breast Density category C . No suspicious masses or suspicious microcalcifications are seen. No skin thickening or abnormal axillary lymph nodes are seen. There has been no significant change from prior exams. IMPRESSION: BI-RADS Category 1, Negative mammogram. Yearly screening mammography is recommended. Breast Density Category C, heterogeneously Dense. The mammogram demonstrates the patient's breast tissue is dense. Dense breast tissue is very common a nd is not abnormal but dense breast tissue can make it harder to find cancer on a mammogram. Also, de nse breast tissue may increase breast cancer risk. This information about the result of the mammogram report was provided to the patient to raise their awareness. Use this report when you speak with the patient about their risks for breast cancer, which includes their family history. At that time, you may recommend additional screening tests (Ultrasound or MRI) as they might be useful based on their r isk. A negative radiographic report should not delay biopsy if a dominant or clinically suspicious mass is present. Up to ten percent of cancers are not identified on mammography. A negative report may reinforce clinical impression. Adenosis and dense breasts may obscure an underlying neoplasm. False positive reports average 6 to 10%.
== END 2024-09-12 02:17 ==
LOC: DI 01:57
PROVIDERS: Visit Provider Nurse Practitioner Family
DX: Z12.31 Encounter for screening mammogram for malignant neoplasm of breast (principal); R92.333 Mammographic heterogeneous density, bilateral breasts
CPT/HCPCS: 77063; 77067

== ENCOUNTER → 2025-04-10 00:24 | Outpatient (CLI) | payer BC, SELFPAY ==
--- NOTE | 2025-04-10 | DI.CT_ITS ---
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 TECHNIQUE: Multi planar reconstructions were performed. CONTRAST MATERIAL: None COMPARISON: CT CT CHEST WO from 11/03/2021 FINDINGS: CHEST: LUNGS: No infiltrates nor pleural effusions. No ominous pulmonary nodules. No obvious fibrotic interstitial disease. Symmetrical mild scarring noted in the sub apical regions of both upper lobes. MEDIASTINUM: There is no obvious hilar nor mediastinal adenopathy. No obvious axillary adenopathy CARDIAC: Heart size is normal. There is no pericardial effusion.Caliber of the thoracic aorta is within normal limits. VISUALIZED UPPER ABDOMEN:No significant findings. No ascites. OSSEOUS: Fractures. No significant osseous lesions.Incidentally noted is bony fusion across the angle of Sylvester of the sternum.. IMPRESSION: 1. No significant pulmonary findings. 2. No pleural effusions nor intrathoracic adenopathy. RADIATION DOSE DELIVERED: 289.93mGy.cm Total DLP DATA REPOSITORY: All CT scans at this facility are submitted to the National Radiology Data Registry (NRDR) Dose Index Registry (DIR) with the [employer] (ACR). RADIATION OPTIMIZATION: All CT scans at this facility use at least one of these dose optimization techniques: automated exposure control; mA and/or kV adjustment per patient size (includes targeted exams where dose is matched to clinical indication); or iterative reconstruction.
--- NOTE | 2025-04-10 08:30 | DI.US_ITS ---
APPROVED REPORT EXAM: Comprehensive 2D, Doppler, and color-flow Echocardiogram Patient Location: Out-Patient Manager Wind: Monica Sprague RT (R) (CT) RD Rhythm: NSR Indications: CREST Syndrome. Other Information Study Quality: Technically Difficult Conclusion Normal left ventricular wall thickness and chamber size. Ejection fraction is 65%. Wall motion is normal Normal right ventricular size and function Both atria are normal in size Trileaflet aortic valve with trace regurgitation Normal mitral valve with trace regurgitation Estimated right ventricular systolic pressure is 21 mmHg Trivial anterior pericardial effusion Wall motion Left Ventricle The left ventricle is normal size. A false chord seen in LV apex, common variant. The left ventricular systolic function is normal. The left ventricular ejection fraction is within the normal range. There is normal left ventricular wall thickness. There is normal LV segmental wall motion. Grade I diastolic dysfunction. There is no ventricular septal defect visualized. LVEF is 65%. Prior echo, 10/11/2023, EF = 60% with normal wall motion. Right Ventricle The right ventricle is normal size. The right ventricular systolic function is normal. Atria The left atrium size is normal. The right atrium size is normal. The interatrial septum is intact with no evidence for an atrial septal defect. Aortic Valve Aortic valve is trileaflet. Mildly thickened aortic valve leaflets. There is no aortic valvular stenosis. Trace aortic regurgitation. Mitral Valve The mitral valve is normal in structure. No evidence of mitral valve stenosis. Trace mitral regurgitation. Tricuspid Valve The tricuspid valve is normal in structure. There is no tricuspid valve stenosis. Mild tricuspid regurgitation. Pulmonary artery pressures are normal with the RVSP = 20.6 mmHg. Pulmonic Valve Pulmonic valve is grossly normal in structure. There is no pulmonic valvular stenosis. There is no pulmonic valvular regurgitation. Great Vessels The aortic root is normal in size. The pulmonary artery is normal. The ascending aorta is normal in size. IVC is normal in size and collapses >50% with inspiration. Pericardium Trivial anterior pericardial effusion. There is no evidence of cardiac tamponade. 2D Dimensions IVSD d PLAX 0.65 cm F: 0.6-1.0 Ao Root d 2.08 cm F: 2.7 - 3.3 LVPW d PLAX 0.65 cm F: 0.6 - 1.0 Ao Asc Diam d 1.87 cm F: 2.3 - 3.1 LVID d PLAX 3.68 cm F: 3.8 - 5.2 Prox Ao Arch 2.3 cm LVDs 2.31 cm F: 2.2 - 3.5 IVC Diam exp d SLAX 0.9 cm LV EF Teichholz 68.0 % FS 37.14 % LV EDV (Teich) 57.3 mL LV ESV (Teich) 18.4 mL M-Mode TAPSE 1.71 cm (M/F) >1.7 Auto EF LV EDV A4C 43.9 mL LV EDV A2C 40.2 mL LV EDV BP 41.9 mL LV ESV A4C 20.6 mL LV ESV A2C 18.2 mL LV ESV BP 19.2 mL LVEF(%) A4C 53.2 % LVEF(%) A2C 54.8 % LVEF(%) BP 54.1 % LV SV A4C 23.4 ml LV SV A2C 22.0 ml LV SV BP 22.7 ml LV CO A4C 2.0 L/min LV CO A2C 1.9 L/min LV CO BP 1.9 L/min HR A4C 84.70 BPM HR A2C 84.12 BPM LV EDV Index (BP) LV Volumes - Method of Disks (Olivas's) Single Plane 2D LV Volumes Biplane 2D LV Volumes LV EDV A4C 36.7 mL LV EDV BP 34.75 mL F: 46 - 106 LV ESV A4C 12.3 mL LV ESV BP 11.3 mL LVEF(%) A4C 66.5 % LVEF(%) BP 67.37 % F: 54 - 74 LV EDV A2C 32.4 mL LV EDV BP Index 23.63 mL/m2 F: 29 - 61 LV ESV A2C 9.9 mL SV BP LVEF(%) A2C 69.5 % SV Index LV Strain Long Pk Overal Avg (s) 17.82 RV Strain Global Peak Long. Strain A4C 20.56 Global Peak Long. Strain A4C FW 22.33 LA Volume LA Length A4C 3.5 cm LA Length A2C 3.3 cm LA Area A4C s 8.29 cm2 LA Area A2C s 6.95 cm2 LA Vol A4C A-L 16.57 mL LA Vol A2C A-L 12.34 mL LA Vol Biplane A-L 14.7 mL LA Vol/BSA A4C A-L LA Vol/BSA A2C A-L LA Vol/BSA BP A-L 10.0 mL/m2 LA Vol A4C MOD 14.0 mL LA Vol A2C MOD 10.0 mL LA Vol BP MOD 12.2 mL LV Diastology MV E' medial 0.085 (>0.07 m/s) MV E Vmax 0.78 (0.4-1.3 m/s) MV E/E' MED 9.20 (<14) MV A Vmax 0.75 (0.4-1.3 m/s) MV E' lateral 0.105 (>0.1 m/s) E/A Ratio 1.0 MV E/E' LAT 7.45 (<14) MV E' Average 0.095 m/s MV E/E'(average) 8.23 Aortic Valve AoV Vmax 1.41 m/s LVOT Vmax 1.05 m/s AoV Peak Grad 7.9 mmHg LVOT Peak Grad 4.4 mmHg AoV Area (Vmax) 1.73 cm2 LVOT VTI 0.211 m AoV VTI 0.261 m LVOT Mean Grad 2.3 mmHg AoV Mean Marvel. 0.93 m/s LVOT SV 48.58 mL AoV Mean Grad 3.9 mmHg LVOT Diam s 1.70 cm AoV Area (VTI) 1.86 cm2 AV Regurg Peak Gr. 7.90 mmHg Velocity Ratio 0.74 Mitral Valve MV DT 115 (160-240 msec) Tricuspid Valve RA Pressure 3.00 mmHg TR Vmax 2.10 m/s TV S' 0.13 m/s TR Peak Grad 17.6 mmHg RVSP (TR) 20.6 mmHg
== END ==
PROVIDERS: PCP Student in an Organized Health Care Education/Training Program; Visit Provider Internal Medicine
DX: M34.1 CR(E)ST syndrome (principal); I31.39 Other pericardial effusion (noninflammatory)
CPT/HCPCS: 71250; 93306

== ENCOUNTER 2025-04-30 04:08 | Outpatient (CLI) | payer BC, SELFPAY ==
--- NOTE | 2025-04-30 12:50 | W.PFT ---
Date of service: 04/30/25 Time of Service: 07:58 Pulmonary Function Test Result Indications: CREST, lupus Impression 1. Good patient effort was noted. ATS standards for reproducibility were met. 2. Normal spirometry. 3. TLC and RV were both elevated, which is suggestive of air trapping. 4. DLCO was normal at 92% predicted, indicating normal alveolar gas exchange
== END 2025-04-30 04:09 | disposition home or self-care (01) ==
LOC: RT 04:08
PROVIDERS: PCP Student in an Organized Health Care Education/Training Program; Visit Provider Internal Medicine
DX: M34.1 CR(E)ST syndrome (principal)
CPT/HCPCS: 94010; 94726; 94729

== ENCOUNTER 2025-04-30 13:51 | Outpatient (REF) | payer BC, SELFPAY ==
[2025-04-30 15:55] LABS: Hemoglobin A1C 4.5 % (<5.7)
[2025-04-30 16:05] LABS: Cholesterol 185 mg/dL (<200); HDL Cholesterol 64 mg/dL (>40); TSH (W/Ref FT4) 1.63 uIU/mL (0.55-4.78)
== END 2025-04-30 13:52 | disposition home or self-care (01) ==
LOC: NCHCN 13:51
PROVIDERS: PCP Student in an Organized Health Care Education/Training Program
DX: Z13.220 Encounter for screening for lipoid disorders (principal); Z13.1 Encounter for screening for diabetes mellitus; E03.9 Hypothyroidism, unspecified
CPT/HCPCS: 80061; 83036; 84443